=== PATIENT | female | born 1985 | race Caucasian/White ===

== ENCOUNTER → 2019-09-26 13:09 | Outpatient (BNVA) | payer MEDICAID, SELFPAY | PROVIDERS: Family Provider Nurse Practitioner; PCP Nurse Practitioner; Visit Provider Obstetrics & Gynecology | DX: Z01.89 Encounter for other specified special examinations (principal) | CPT/HCPCS: 84315 ==

== ENCOUNTER → 2019-10-10 15:30 | Outpatient (BNVA) | payer SELFPAY | PROVIDERS: Family Provider Nurse Practitioner; PCP Nurse Practitioner; Visit Provider Obstetrics & Gynecology | DX: O09.522 Supervision of elderly multigravida, second trimester (principal); O24.112 Pre-existing type 2 diabetes mellitus, in pregnancy, second trimester; O09.892 Supervision of other high risk pregnancies, second trimester; O99.212 Obesity complicating pregnancy, second trimester; M79.7 Fibromyalgia; J45.909 Unspecified asthma, uncomplicated; G43.909 Migraine, unspecified, not intractable, without status migrainosus; Z3A.15 15 weeks gestation of pregnancy | CPT/HCPCS: 81000; 84315 ==

== ENCOUNTER → 2019-10-24 14:19 | Outpatient (BNVA) | payer MEDICAID, SELFPAY | PROVIDERS: Family Provider Nurse Practitioner; PCP Nurse Practitioner; Visit Provider Obstetrics & Gynecology | DX: O09.522 Supervision of elderly multigravida, second trimester (principal); O99.212 Obesity complicating pregnancy, second trimester; O09.892 Supervision of other high risk pregnancies, second trimester; Z3A.17 17 weeks gestation of pregnancy | CPT/HCPCS: 81000; 84315 ==

== ENCOUNTER → 2019-11-01 08:26 | Outpatient (BNVA) | payer MEDICAID, SELFPAY | PROVIDERS: Family Provider Nurse Practitioner; PCP Nurse Practitioner; Visit Provider Counselor Professional | DX: F33.2 Major depressive disorder, recurrent severe without psychotic features (principal); F41.1 Generalized anxiety disorder; F43.12 Post-traumatic stress disorder, chronic | CPT/HCPCS: 90834 ==

== ENCOUNTER → 2019-11-07 11:40 | Outpatient (BNVA) | payer MEDICAID, SELFPAY | PROVIDERS: Family Provider Nurse Practitioner; PCP Nurse Practitioner; Visit Provider Obstetrics & Gynecology | DX: Z01.89 Encounter for other specified special examinations (principal) | CPT/HCPCS: 84315 ==

== ENCOUNTER → 2019-11-14 08:13 | Outpatient (BNVA) | payer MEDICAID, SELFPAY | PROVIDERS: Family Provider Nurse Practitioner; PCP Nurse Practitioner; Visit Provider Obstetrics & Gynecology | DX: O09.892 Supervision of other high risk pregnancies, second trimester (principal); Z3A.20 20 weeks gestation of pregnancy | CPT/HCPCS: 76805 ==

== ENCOUNTER → 2019-11-15 12:41 | Outpatient (BNVA) | payer MEDICAID, SELFPAY | PROVIDERS: Family Provider Nurse Practitioner; PCP Nurse Practitioner; Visit Provider Counselor Professional | DX: F33.2 Major depressive disorder, recurrent severe without psychotic features (principal); F41.1 Generalized anxiety disorder; F43.12 Post-traumatic stress disorder, chronic | CPT/HCPCS: 90834 ==

== ENCOUNTER → 2019-11-21 10:15 | Outpatient (BNVA) | payer MEDICAID, SELFPAY | PROVIDERS: Family Provider Nurse Practitioner; Visit Provider Nurse Practitioner | DX: F43.12 Post-traumatic stress disorder, chronic (principal); F41.1 Generalized anxiety disorder; F33.2 Major depressive disorder, recurrent severe without psychotic features | CPT/HCPCS: 99214 ==

== ENCOUNTER → 2019-11-21 11:31 | Outpatient (BNVA) | payer MEDICAID, OTHER, SELFPAY | PROVIDERS: Family Provider Nurse Practitioner; PCP Nurse Practitioner; Visit Provider Obstetrics & Gynecology | DX: Z01.89 Encounter for other specified special examinations (principal) | CPT/HCPCS: 84315 ==

== ENCOUNTER → 2019-11-29 10:22 | Outpatient (BNVA) | payer MEDICAID, SELFPAY | PROVIDERS: Family Provider Nurse Practitioner; PCP Nurse Practitioner; Visit Provider Counselor Professional | DX: F33.2 Major depressive disorder, recurrent severe without psychotic features (principal); F41.1 Generalized anxiety disorder; F43.12 Post-traumatic stress disorder, chronic; O99.342 Other mental disorders complicating pregnancy, second trimester | CPT/HCPCS: 90834 ==

== ENCOUNTER → 2019-12-05 11:42 | Outpatient (BNVA) | payer MEDICAID, SELFPAY | PROVIDERS: Family Provider Nurse Practitioner; PCP Nurse Practitioner; Visit Provider Obstetrics & Gynecology | DX: Z01.89 Encounter for other specified special examinations (principal) | CPT/HCPCS: 84315 ==

== ENCOUNTER → 2019-12-19 09:16 | Outpatient (BNVA) | payer MEDICAID, SELFPAY | PROVIDERS: Family Provider Nurse Practitioner; PCP Nurse Practitioner; Visit Provider Obstetrics & Gynecology | DX: Z01.89 Encounter for other specified special examinations (principal) | CPT/HCPCS: 84315 ==

== ENCOUNTER → 2019-12-20 07:26 | Outpatient (BNVA) | payer MEDICAID, SELFPAY | PROVIDERS: Family Provider Nurse Practitioner; PCP Nurse Practitioner; Visit Provider Nurse Practitioner | DX: F33.2 Major depressive disorder, recurrent severe without psychotic features (principal); F43.12 Post-traumatic stress disorder, chronic; F41.1 Generalized anxiety disorder | CPT/HCPCS: 99214 ==

== ENCOUNTER → 2020-01-02 12:01 | Outpatient (BNVA) | payer MEDICAID, SELFPAY | PROVIDERS: Family Provider Nurse Practitioner; PCP Nurse Practitioner; Visit Provider Obstetrics & Gynecology | DX: Z34.90 Encounter for supervision of normal pregnancy, unspecified, unspecified trimester (principal); O09.892 Supervision of other high risk pregnancies, second trimester; O26.899 Other specified pregnancy related conditions, unspecified trimester; O26.892 Other specified pregnancy related conditions, second trimester; Z67.91 Unspecified blood type, Rh negative | CPT/HCPCS: 84315; 85027; 86850 ==

== ENCOUNTER → 2020-01-09 10:07 | Outpatient (BNVA) | payer MEDICAID, SELFPAY | PROVIDERS: Family Provider Nurse Practitioner; PCP Nurse Practitioner; Visit Provider Obstetrics & Gynecology | DX: O24.113 Pre-existing type 2 diabetes mellitus, in pregnancy, third trimester (principal); O09.893 Supervision of other high risk pregnancies, third trimester; O99.343 Other mental disorders complicating pregnancy, third trimester; O26.893 Other specified pregnancy related conditions, third trimester; Z67.91 Unspecified blood type, Rh negative; O99.213 Obesity complicating pregnancy, third trimester; O99.613 Diseases of the digestive system complicating pregnancy, third trimester; K21.9 Gastro-esophageal reflux disease without esophagitis; Z3A.28 28 weeks gestation of pregnancy | CPT/HCPCS: 84315 ==

== ENCOUNTER → 2020-01-16 10:24 | Outpatient (BNVA) | payer MEDICAID, SELFPAY | PROVIDERS: Family Provider Nurse Practitioner; PCP Nurse Practitioner; Visit Provider Obstetrics & Gynecology | DX: O24.113 Pre-existing type 2 diabetes mellitus, in pregnancy, third trimester (principal); O09.893 Supervision of other high risk pregnancies, third trimester | CPT/HCPCS: 76816; 84315 ==

== ENCOUNTER → 2020-01-17 07:42 | Outpatient (BNVA) | payer MEDICAID, SELFPAY | PROVIDERS: Family Provider Nurse Practitioner; PCP Nurse Practitioner; Visit Provider Nurse Practitioner | DX: F43.12 Post-traumatic stress disorder, chronic (principal); F33.2 Major depressive disorder, recurrent severe without psychotic features; F41.1 Generalized anxiety disorder | CPT/HCPCS: 99213 ==

== ENCOUNTER 2020-01-28 14:30 | Outpatient (CLI) | payer MEDICAID, SELFPAY ==
[2020-01-28] VITALS (13 sets, daily range): BP systolic 85–127; BP diastolic 43–77; PULSE 84–112; RESP 18; TEMP 36.8; BMI 45.6
[2020-01-28] MEDS: lactated ringers 1,000 ML 999 ML IV (16:03)
--- NOTE | 2020-01-28 16:39 | PC.NURSE ---
At [id number] Vital Signs, Heart tones and Contraction monitor graphing under another patients account. Strip printed and put in paper chart.
[2020-01-28 16:47] LABS: Glucose Point of Care 91 mg/dL (70-110)
--- NOTE | 2020-01-28 17:10 | PC.NURSE ---
Patient states her pain has been better since she has been laying down and IV fluids have been infusing. Patient states she has only felt about 2 contractions in the last hour.
--- NOTE | 2020-01-28 17:46 | PC.NURSE ---
Patient states contraction pain is better than when she first came in and has only felt about 2 in the last hour. Patient states the continuous groin pain that she feels when she moves and has been feeling for the last 2 weeks is what is really bothering her now.
--- NOTE | 2020-01-28 17:49 | PC.NURSE ---
Patient playing on tablet with no facial grimaces noted. Patient smiling during conversation.
--- NOTE | 2020-01-28 18:39 | PC.NURSE ---
Patient states she is feeling minimal if any contractions, but still having groin pain.
--- NOTE | 2020-01-28 21:58 | P.PCN_ITS ---
Procedure/Consent Procedure Narrative: NONSTRESS TEST: Place of test: [facility] [place]-L&D Indication: 34-year-old 4 para 3-0-0-3, labor/abdominal pain Date and time of test: 01/28/2020, 3 PM Baseline: 135 Variability: Moderate Accelerations: Present Decelerations: None Tocometry: Irregular contractions, mostly irritability INTERPRETATION: NST reactive, continue kick counts
== END 2020-01-28 19:11 | disposition home or self-care (01) ==
LOC: OPOB 14:31 → OBGYN 18:50
PROVIDERS: PCP Nurse Practitioner; Visit Provider Obstetrics & Gynecology
DX: O26.899 Other specified pregnancy related conditions, unspecified trimester (principal); Z3A.00 Weeks of gestation of pregnancy not specified; R10.9 Unspecified abdominal pain
CPT/HCPCS: 36416; 59025; 82962; 99211

== ENCOUNTER → 2020-02-15 13:08 | Outpatient (BNVA) | payer MEDICAID, SELFPAY | PROVIDERS: PCP Nurse Practitioner; Visit Provider Obstetrics & Gynecology | DX: O24.113 Pre-existing type 2 diabetes mellitus, in pregnancy, third trimester (principal); O16.3 Unspecified maternal hypertension, third trimester; Z3A.00 Weeks of gestation of pregnancy not specified | CPT/HCPCS: 84156; 84315 ==

== ENCOUNTER 2020-02-22 12:14 | Outpatient (CLI) | payer MEDICAID, SELFPAY ==
--- NOTE | 2020-02-22 13:05 | US_ITS ---
WS: [id number] OB BPP wo NST 22095 REASON FOR EXAM: GESTIONAL DIABETIC FINDINGS: Anterior placenta is noted. Biparietal diameter the head was 8.93 cm 36 weeks 1 day gestation. Head circumference 32.84 cm 37 weeks 2 days gestation Abdominal circumference 30.47 cm 34 weeks 3 days gestation Femoral length 6.94 cm 35.4 weeks gestation. heart rate 161 beats for minute weight estimated 2624 g 5 lbs. 12 oz. and suggests 35 weeks 1 day gestation. Amniotic fluid indices 24.02 cm elevated suggesting mild pathology granulomas. US/US OB BPP wo NST 58331 IMPRESSION: Interuterine at 35 weeks 6 days gestation due date March 27, 2020. There appears to be increased amniotic fluid present.
[2020-02-22 13:08] VITALS: BMI 46.1
[2020-03-21 08:05] VITALS: BP 0/0; BP 119/76; PULSE 100
[2020-03-21 09:45] VITALS: BP 0/0
[2020-03-21 10:41] VITALS: BP 109/60; PULSE 104
[2020-03-21 17:53] VITALS: BP 124/71; PULSE 88
[2020-03-21 20:52] VITALS: BP 135/74; PULSE 87
== END 2020-02-23 07:57 | disposition home or self-care (01) ==
LOC: OPOB 12:17 → OBGYN 12:22
PROVIDERS: PCP Nurse Practitioner; Visit Provider Obstetrics & Gynecology
DX: O24.919 Unspecified diabetes mellitus in pregnancy, unspecified trimester (principal); Z3A.00 Weeks of gestation of pregnancy not specified
CPT/HCPCS: 59025; 76819; 84315; 99211

== ENCOUNTER → 2020-02-27 09:33 | Outpatient (BNVA) | payer MEDICAID, SELFPAY | PROVIDERS: PCP Nurse Practitioner; Visit Provider Obstetrics & Gynecology | DX: O09.893 Supervision of other high risk pregnancies, third trimester (principal); O24.113 Pre-existing type 2 diabetes mellitus, in pregnancy, third trimester; O99.613 Diseases of the digestive system complicating pregnancy, third trimester; K21.9 Gastro-esophageal reflux disease without esophagitis | CPT/HCPCS: 84315; 87081 ==

== ENCOUNTER 2020-03-13 19:20 | Outpatient (CLI) | payer MEDICAID, SELFPAY ==
[2020-03-13] VITALS (11 sets, daily range): BP systolic 0–142; BP diastolic 0–77; PULSE 86–122; RESP 18; TEMP 37; BMI 46.7
[2020-03-13] MEDS: acetaminophen 325 mg Tablet 650 MG PO (20:46)
== END 2020-03-13 21:40 | disposition home or self-care (01) ==
LOC: OPOB 19:32 → OBGYN 19:33
PROVIDERS: PCP Nurse Practitioner; Visit Provider Obstetrics & Gynecology
DX: O26.899 Other specified pregnancy related conditions, unspecified trimester (principal); Z3A.00 Weeks of gestation of pregnancy not specified; R10.9 Unspecified abdominal pain
CPT/HCPCS: 99211

== ENCOUNTER 2020-03-20 17:36 | Inpatient (IN) | payer MEDICAID, SELFPAY ==
[2020-03-20] VITALS (25 sets, daily range): BP systolic 0–147; BP diastolic 0–79; PULSE 75–116; RESP 17–18; TEMP 36.6–36.7; BMI 46.1
[2020-03-20 18:15] LABS: Glucose Point of Care 75 mg/dL (70-110)
[2020-03-20 19:15] LABS: Basophils % 0.3 %; Eosinophils # 0.1 10^3/uL (0.0-0.8); Eosinophils % 0.6 %; Hematocrit 41.1 % (37.0-47.0); Hemoglobin 12.9 g/dL (11.5-15.3); Lymphocytes % 18.3 %; Mean Corpuscular HGB Conc 31.4 g/dL (30.0-36.0); Mean Platelet Volume 12.2 fL (7.4-10.4); Monocytes # 0.7 10^3/uL (0.2-0.9); Monocytes % 6.2 %; Neutrophils # 8.2 10^3/uL (1.8-7.7); Neutrophils % 74.1 %; Nucleated Red Blood Cells % 0 %; Platelet Count 286 10^3/cmm (130-400); Red Blood Count 4.78 10^6/uL (4.1-5.3); Red Cell Distribution Width 15.3 % (12.1-15.1); White Blood Count 11.1 10^3/uL (4.0-10.0)
[2020-03-20] MEDS: dextrose 5%-sod chloride 0.9% 1,000 ML 999 ML IV (20:08)
[2020-03-20 20:57] LABS: Glucose Point of Care 147 mg/dL (70-110)
[2020-03-20] MEDS: lactated ringers 1,000 ML 125 ML IV (21:15)
[2020-03-20] MEDS: oxytocin 30 UNIT/500 ML BAG IV (21:44)
[2020-03-20 23:07] LABS: Glucose Point of Care 76 mg/dL (70-110)
[2020-03-21] VITALS (58 sets, daily range): BP systolic 0–139; BP diastolic 0–86; PULSE 70–110; RESP 17–18; TEMP 36.4–36.8
[2020-03-21 02:15] LABS: Glucose Point of Care 93 mg/dL (70-110)
[2020-03-21] MEDS: dextrose 5%-sod chloride 0.9% 1,000 ML 125 ML IV ×2 (03:18→15:36)
[2020-03-21 06:24] LABS: Glucose Point of Care 85 mg/dL (70-110)
--- NOTE | 2020-03-21 07:36 | PM.PN ---
Subjective Subjective: Interval history: Subjective- Ms. cool is a 34-year-old 4 para 2-1-0-3 at 39 weeks and 1 day gestation today who presented to labor and delivery on 03/20/2020 at 39 weeks for scheduled induction of labor for type 2 diabetes on insulin. On admission her cervix was 1 cm, 20% and -3 station, cephalic. tracing was category 1 and she was tee every 2 to 5 minutes. Fingerstick was normal upon admission and she was given IV fluid hydration and lab work was done. Contractions continued to remain every 2 to 5 minutes and as a result decision was made to start induction with Pitocin. Pitocin was started at around 9:30 PM on 03/20/2020 and titrated to a maximum of 6 mIU and with that she was tee every 1 to 3 minutes. She was a little uncomfortable but did not want anything for pain at this time. Overnight the only problems were difficulty keeping the baby on the monitor because of activity as well as maternal body habitus. -Overnight she did pretty well and this morning she is okay other than just feeling sleepy and tired. She does report good movement. Objective- Blood pressure-114/78 mmHg Pulse-84 beats per minute Temperature-98.3 Fahrenheit Abdomen-gravid, nontender, obese Sterile vaginal exam-4-5, 30%, soft, mid position, -3 station, cephalic-ballotable EFM-140, moderate variability, accelerations, no decelerations [place]-contractions every 2 to 3 minutes Assessment: 34-year-old 4 para 2-1-0-3 at 39 weeks and 1 day Induction of labor for type 2 diabetes on insulin Polyhydramnios-resolved Expected large for gestational age baby Anxiety and depression prepregnancy Rh- GERD Asthma Morbid obesity with a BMI of 46 Plan: Plan to continue Pitocin for another 1 or 2 hours and if she does not make any further cervical change we will plan on therapeutic break and she can eat shower and ambulate during this time. We will then reassess contraction pattern and cervix and plan on next round of induction-probably Pitocin. Discussed with patient in detail expected large for gestational age baby and risk of shoulder dystocia. Discussed the risks of shoulder dystocia and discussed importance of cooperation during delivery. Discussed possible . We will continue monitoring fingersticks every 4 hours and adjust IV fluids accordingly since she has taken her NPH and Levemir last night Cashier Self Service [employer] notified to be there at time of delivery Nursing notified about high risk of shoulder dystocia for adequate staffing at time of delivery Will restart other medications postdelivery and she is otherwise doing well. Continuous EFM and tocometry at this time. Vitals/I&O/Wt Last Vital Signs Temp 98.0 F 03/21/20 05:30 Pulse 110 H 03/21/20 07:27 Resp 18 03/21/20 05:30 BP 97/40 03/21/20 07:27 03/20/20 03/21/20 03/21/20 22:59 06:59 14:59 Intake Total 1000.717 / 1000.717 274.250 / 1274.967 Balance 1000.717 / 1000.717 274.250 / 1274.967 Weight last 48 hrs Weight 269 lb Data : 03/20/20 19:00 Attestations Medical Necessity Statement*: Patient is being induced and needs to stay till delivery and recovery Coding Level of Care Code Acute Cell Tender for Chg Fwd Results OB Labs Labs G4 09/01/2019 Blood type: O NEGATIVE. Antibody screen: Negative. Intake CBC: WBC 9.9, Hgb 13.5, Hct 42.6, MCV 84.7, Plt 263. Rubella: Immune (41). Hepatitis B surface antigen: Negative. Hepatitis C antibody: Negative. RPR: Nonreactive. HIV: Negative. Cystic fibrosis screen: Declined Urine drug screen: Negative. Urine culture: 10-20,000 CFU, mixed organisms. 09/08/2019 TSH: 0.19. 24-hour urine: Total protein 89 (TV 1050 mL), creatinine clearance 170. 09/19/2019 Gonorrhea: Negative. Chlamydia: Negative. Pap smear: Negative for intraepithelial lesion. 10/10/2019 Quad screen: Declined. 01/02/2020 28 week CBC: WBC 10.4, Hgb 11.4, Hct 36.3, MCV 87.7, Plt 267. Antibody screen: Negative. 02/27/2020 GBS: Negative. PAP 09/19/2019: Negative for intraepithelial lesion or malignancy. OB Ultrasound LMP 06/21/2019 ---> EDC 03/27/2020. 1. 09/01/2019 ---> 10-4/7 WG ---> EDC 03/25/2020. 2. 11/14/2019 ---> 20-6/7 WG ---> EDC 03/27/2020. EFW 14 oz (394 g) 54%. Performed at [facility]. Consistent with dates. Normal anatomic survey, but limited due to maternal body habitus. Female. Breech. FHR 148 bpm. Anterior placenta without previa. Grade 1. Visually normal amniotic fluid volume. STONECUTTER APPRENTICE HAND 7.1 cm. Cervix 4.8 cm. 3. 01/16/2020 ---> 31-0/7 WG ---> EDC 03/19/2020. EFW 3 lbs 12 oz (1716 g) 82%. Performed at [facility]. Consistent with dates. Female. Cephalic. FHR 150 bpm. Anterior placenta without previa. Grade 1. TARYN 23.8 cm. STONECUTTER APPRENTICE HAND 8.1 cm. 4. 02/15/2020 ---> 35-6/7 WG ---> EDC 03/15/2020. EFW 5 lbs 12 oz (2624 g) 75%. Performed at [facility]. Consistent with dates. Female. Complete breech. FHR 161 bpm. Anterior, left lateral placenta without previa. Grade 1. TARYN 24.0 cm. STONECUTTER APPRENTICE HAND 8.3 cm.
[2020-03-21 11:04] LABS: Glucose Point of Care 115 mg/dL (70-110)
[2020-03-21] MEDS: metoclopramide 5 mg/mL SDV 2 mL 10 MG IV (11:58)
[2020-03-21] MEDS: oxytocin 30 UNIT/500 ML BAG IV (13:40)
[2020-03-21 13:48] LABS: Glucose Point of Care 86 mg/dL (70-110)
[2020-03-21 16:00] LABS: Glucose Point of Care 94 mg/dL (70-110)
[2020-03-21] MEDS: fentaNYL 50 mcg/mL INJ 2mL IV (17:48)
[2020-03-21 18:03] LABS: Glucose Point of Care 101 mg/dL (70-110)
[2020-03-21] MEDS: lidocaine 2% INJ 20 mL INJECTION (19:05)
--- NOTE | 2020-03-21 19:20 | P.PCNOB_ITS ---
Delivery Note: Date of delivery: March 21, 2020 Pre-delivery diagnoses: Term . Gestational diabetes Post-delivery diagnoses: Same as above Procedure: Spontaneous vaginal delivery Op report anesthesia: General Delivering Physician: César cheung M.D. Estimated blood loss (mL): 500 Findings: Baby girl, Apgars 8 and 9, weight 3500 g Delivery: The patient was noted to be complete and pushing, so was placed in the dorsal lithotomy position, prepped and draped in the usual sterile fashion for a vaginal delivery. Pt. Noted to have epidural anesthesia. At 1900 the patient delivered a Viable Female infant weighing 3500 g with scores of 8 and 9 at one and five minutes, respectively. The vertex was delivered spontaneously over Intact perineum. The patient was asked to push and the head delivered spontaneously in the AILYN position, over an intact perineum. A nuchal cord was checked and None noted. The anterior shoulder delivered easily and the posterior shoulder followed. The remainder of the infant was easily delivered and the oropharynx and nasopharynx was bulb suctioned. The infant was noted to have spontaneous cry and spontaneous movement of all four extremities. The cord was clamped x 2 and cut and noted to have 2 arteries and one vein. The infant was passed to the Mother's abdomen where Nursing personnel were in attendance. Cord blood sample was then obtained. The placenta delivered intact Spontaneously and the uterus Was explored. 20 units of Pitocin was placed in the IV bag to firm the uterus. Examination of the cervix and vaginal vault did not reveal any lacerations. A vaginal pack was then placed. Examination of the perineum showed First degree laceration bleeding. The Laceration was repaired with 3-0 Vicryl in the normal fashion in a running non locking fashion to reapproximate the laceration in layers. The vaginal pack was then removed. The patient tolerated this procedure well, and recovered in L&D with her to the OB malik. All sponge and needle counts were correct. A&P Assessment and plan (1) Term delivered: Status: Acute (2) Polyhydramnios affecting in third trimester: Status: Acute (3) Obesity affecting : Status: Acute Qualifiers: Trimester: third trimester Qualified Code(s): O99.213 - Obesity complicating , third trimester (4) Rh negative status during : Status: Acute Qualifiers: Trimester: third trimester Qualified Code(s): O26.893 - Other specified related conditions, third trimester; Z67.91 - Unspecified blood type, Rh negative (5) Diabetes in : Status: Acute Qualifiers: Diabetes in type: pre-existing, type 2 Trimester: third trimester Qualified Code(s): O24.113 - Pre-existing type 2 diabetes mellitus, in , third trimester Coding Level of Care Code Acute Squeezer Operator for Chg Fwd Diagnoses Term delivered O80 Polyhydramnios affecting in third trimester O40.3XX0 Obesity affecting O99.213 Trimester: third trimester Rh negative status during O26.893; Z67.91 Trimester: third trimester Diabetes in O24.113 Diabetes in type: pre-existing, type 2 Trimester: third trimester
--- NOTE | 2020-03-21 21:19 | PC.NURSE ---
Patient ambulated to PP room at this time, no c/o dizziness, feelings of lightheadedness
[2020-03-22] VITALS (13 sets, daily range): BP systolic 112–143; BP diastolic 64–79; PULSE 82–101; RESP 14–18; TEMP 36.6–36.8; O2SAT 99
[2020-03-22] MEDS: alum-mag-hydroxide-sime 30 mL UDC PO (01:27)
[2020-03-22] MEDS: acetaminophen 325 mg Tablet 650 MG PO ×3 (02:55→19:31)
[2020-03-22] MEDS: prenatal vitamin Capsule 1 CAP PO (08:08)
[2020-03-22 08:12] LABS: Hemoglobin 10.8 g/dL (11.5-15.3)
--- NOTE | 2020-03-22 08:40 | PC.NURSE ---
Call to Mario in pharmacy to report pt has a home med of omeprazole. Mario stated, Order Pantoprazole in place of omeprazole and order 40 mg instead of 20 mg.
[2020-03-22 09:04] LABS: Hematocrit 34.1 % (37.0-47.0); Mean Corpuscular HGB Conc 31.7 g/dL (30.0-36.0); Mean Corpuscular Hemoglobin 27.2 pg (28.0-34.0); Mean Corpuscular Volume 85.9 fL (81-99); Mean Platelet Volume 12.7 fL (7.4-10.4); Platelet Count 229 10^3/cmm (130-400); Red Blood Count 3.97 10^6/uL (4.1-5.3); Red Cell Distribution Width 15.4 % (12.1-15.1); White Blood Count 12.5 10^3/uL (4.0-10.0)
--- NOTE | 2020-03-22 09:22 | PC.NURSE ---
DFS Moderate Needs Teacher in Pt room at this time. utility worker production notified nurse, infant will not be discharged with mother.
[2020-03-22] MEDS: BuSPIRONE 10 mg Tablet PO ×2 (09:51→17:39)
[2020-03-22] MEDS: buPROPion XL (24 HR) 150 mg Tablet PO (09:51)
[2020-03-22] MEDS: cetirizine 10 mg Tablet PO (09:53)
--- NOTE | 2020-03-22 16:40 | PM.OBGYDC ---
Discharge Providers PINSETTER [employer]CH[employer]IC [employer]AT[employer] Date of Admission: 03/20/20 17:36 Date of Discharge: 03/22/20 Attending Provider at Admission: Earnestine Graves MD Attending Provider at Discharge: Earnestine Graves MD Primary Care Provider: LESLI Miller Diagnoses at Discharge Discharge Diagnosis (1) Term delivered: Status: Acute Problem details: Status post spontaneous vaginal delivery day 1 (2) Polyhydramnios affecting in third trimester: Status: Acute (3) Obesity affecting : Status: Acute Qualifiers: Trimester: third trimester Qualified Code(s): O99.213 - Obesity complicating , third trimester (4) Rh negative status during : Status: Acute Qualifiers: Trimester: third trimester Qualified Code(s): O26.893 - Other specified related conditions, third trimester; Z67.91 - Unspecified blood type, Rh negative (5) Diabetes in : Status: Acute Qualifiers: Diabetes in type: pre-existing, type 2 Trimester: third trimester Qualified Code(s): O24.113 - Pre-existing type 2 diabetes mellitus, in , third trimester Reason for Visit Reason for Visit: Induction of Labor Hospital Course Hospital Course: Patient was admitted to labor and delivery for induction due to High risk with gestational diabetes. She progressed to have a spontaneous vaginal delivery of a baby girl Apgars 8/9 with weight of 3500 g. observation uneventful. She is afebrile and hemodynamically stable. A running diet well. Ambulating without difficulty. Refers she has not menopause and may which type of contraception she will use and will decide at the 6 week visit. Information Peripartum Data: Delivery Method: Vaginal Physical Exam Narrative: EXAM NARRATIVE: GA; alert and oriented x 3 HEENT: normal Breasts: engorged Nipples - skin intact Lungs; clear to auscultation Heart: regular rhythm, no murmurs. Abd: Appropriately tender. BS+. Uterine fundus below umbilicus. No Fundal Tenderness. Perineum: normal lochia. Extremities: no edema, no cyanosis, no tenderness. Discharge Data Data Completed and Pending: Pending at discharge Category Date Time Status Complete Crossmat ch Routine Lab 03/21/20 06:30 Results Rho D Immune Glob ulin Routine Lab 07/01/20 06:30 Results Type and Screen R outine Lab 03/21/20 06:30 Results Labs from last 24 hours 03/22/20 03/22/20 03/21/20 07:36 07:36 17:57 WBC 12.5 H RBC 3.97 L Hgb 10.8 L Hct 34.1 L MCV 85.9 MCH 27.2 L MCHC 31.7 RDW 15.4 H Plt Count 229 MPV 12.7 H POC Glucose 101 Blood Type Rho(D) Type Antibody Screen Screen Negative 03/21/20 06:30 WBC RBC Hgb Hct MCV MCH MCHC RDW Plt Count MPV POC Glucose Blood Type O Negative Rho(D) Type Negative Antibody Screen Negative Screen Vitals: Last Vital Signs Temp 97.8 F 03/22/20 10:13 Pulse 82 03/22/20 10:13 Resp 16 03/22/20 10:13 BP 139/74 03/22/20 10:13 Pulse Ox 99 03/22/20 10:13 Discharge Plan Discharge Patient Disposition: Home, Self-Care Condition: Stable Prescriptions: New acetaminophen 325 mg tablet 650 mg PO Q4H PRN (Reason: fever or pain) Qty: 60 RF: 0 ferrous sulfate 325 mg (65 mg iron) tablet 325 mg PO BID Qty: 60 RF: 0 Continued omeprazole 20 mg capsule,delayed release(DR/EC) 20 mg PO DAILY 30 Days Qty: 30 RF: 10 cetirizine [Zyrtec] 10 mg tablet 10 mg PO DAILY Qty: 30 RF: 2 albuterol sulfate 2.5 mg/0.5 mL solution for nebulization 2.5 mg INHALATION ONCE Qty: 1 RF: 0 hydroxyzine HCl 25 mg tablet 25 mg PO QID PRN (Reason: anxiety) RF: 0 ondansetron HCl [Zofran] 4 mg tablet 4 mg PO Q8H PRN (Reason: nausea and vomiting) RF: 0 albuterol sulfate [ProAir HFA] 90 mcg/actuation HFA aerosol inhaler 2 puff INHALATION Q6H PRN (Reason: Shortness Of Breath Or Wheezing) RF: 0 fluticasone propionate [Allergy Relief (fluticasone)] 50 mcg/actuation spray,suspension 2 spray INTRANASAL BID RF: 0 buspirone 10 mg tablet 10 mg PO BID Qty: 60 RF: 1 bupropion HCl [Wellbutrin XL] 150 mg tablet extended release 24 hr 150 mg PO QAM Qty: 30 RF: 1 Levemir U-100 Insulin 100 unit/mL solution 26 unit SUBCUT DAILY RF: 0 Novolin N NPH U-100 Insulin 100 unit/mL suspension 8 unit SUBCUT .daily with lunch Qty: 10 RF: 2 insulin aspart U-100 [Novolog U-100 Insulin aspart] 100 unit/mL solution See Rx Instructions SUBCUT TID RF: 0 metoclopramide HCl [Reglan] 10 mg tablet 10 mg PO Q6H PRN (Reason: nausea and vomiting) Qty: 120 RF: 1 (DME) Accutrend Glucose test strips Strip See Rx Instructions .ROUTE .MEDSUPPLY Qty: 200 RF: 4 prenat.vits,maya,byi-ylnq-aqhfu Tablet 1 tab PO DAILY Qty: 30 RF: 6 Flovent HFA 220 mcg/actuation HFA aerosol inhaler 2 puff INHALATION BID Qty: 12 RF: 1 montelukast 10 mg tablet 10 mg PO .at bedtime 30 Days Qty: 30 RF: 1 Referrals: César Juarez MD [Physician] - 2 weeks Discharge Diet: As Directed Discharge Activity: Increase activity as tolerated Patient Instructions: Diabetes and Diet, Diabetes Insipidus (DC), Vaginal Delivery (DC) Activity Restrictions/Additional Instructions: Pelvic rest for 6 weeks (no sex, no tampons, no vaginal douches). Return to the emergency room if any fever, increased bleeding or pain. Discharge Attestations [employer] Time Spent in Discharge Care*: greater than 30 min Specific Discharge Activities: Specific discharge activities: educating patient and educating and/or supporting family/caregiver Coding Level of Care Code Acute Sanitation Truck Cleaner for Chg Fwd Diagnoses Term delivered O80 Polyhydramnios affecting in third trimester O40.3XX0 Obesity affecting O99.213 Trimester: third trimester Rh negative status during O26.893; Z67.91 Trimester: third trimester Diabetes in O24.113 Diabetes in type: pre-existing, type 2 Trimester: third trimester
[2020-03-22] MEDS: montelukast sodium 10 mg Tablet PO (17:39)
== END 2020-03-22 20:49 | disposition home or self-care (01) | DRG 805 ==
PROVIDERS: Obstetrics & Gynecology; Admitting Provider Obstetrics & Gynecology; PCP Nurse Practitioner; Visit Provider Obstetrics & Gynecology
DX: O40.3XX0 Polyhydramnios, third trimester, not applicable or unspecified (principal); O24.12 Pre-existing type 2 diabetes mellitus, in childbirth; Z37.0 Single live birth; O99.214 Obesity complicating childbirth; O70.0 First degree perineal laceration during delivery; Z3A.39 39 weeks gestation of pregnancy; E11.9 Type 2 diabetes mellitus without complications
CPT/HCPCS: 12345; 36415; 36416; 59025; 59409; 82962; 83986; 85025; 85027; 85460; 86850; 86900; 90384; 96372; 96375; 98960; 99211; J2001; J2765; J3010; J3535

== ENCOUNTER → 2020-04-06 07:48 | Outpatient (BNVA) | payer MEDICAID, SELFPAY | PROVIDERS: PCP Nurse Practitioner; Visit Provider Nurse Practitioner | DX: F33.2 Major depressive disorder, recurrent severe without psychotic features (principal); F41.1 Generalized anxiety disorder; F43.12 Post-traumatic stress disorder, chronic; F33.1 Major depressive disorder, recurrent, moderate | CPT/HCPCS: 36416; 82962; 99214 ==

== ENCOUNTER 2020-05-08 08:08 | Outpatient (CLI) | payer MEDICAID, SELFPAY ==
--- NOTE | 2020-05-08 11:49 | PFTS_ITS ---
Date of Study:05/08/20 Date of Dictation: MECHANICS: Forced vital capacity (FVC) is normal. Forced expiratory volume in one second (FEV1) is normal. FEV1/FVC is normal. FLOW VOLUME LOOP: Normal. LUNG VOLUMES: Not performed DIFFUSING CAPACITY FOR CARBON MONOXIDE: Not performed. INTERPRETATION: The spirometry is normal. MTDD
== END 2020-05-08 08:09 | disposition home or self-care (01) ==
LOC: RT 08:12
PROVIDERS: PCP Nurse Practitioner; Visit Provider Internal Medicine
DX: J45.909 Unspecified asthma, uncomplicated (principal)
CPT/HCPCS: 94010

== ENCOUNTER → 2020-06-15 12:15 | Outpatient (BNVA) | payer MEDICAID, SELFPAY | PROVIDERS: Family Provider Nurse Practitioner; Visit Provider Internal Medicine | DX: Z20.828 Contact with and (suspected) exposure to other viral communicable diseases (principal) | CPT/HCPCS: 87635 ==

== ENCOUNTER → 2020-06-26 08:04 | Outpatient (BNVA) | payer MEDICAID, SELFPAY | PROVIDERS: Family Provider Nurse Practitioner; Visit Provider Nurse Practitioner | DX: F33.2 Major depressive disorder, recurrent severe without psychotic features (principal); F41.1 Generalized anxiety disorder; F43.12 Post-traumatic stress disorder, chronic | CPT/HCPCS: 99214 ==

== ENCOUNTER → 2020-08-07 07:39 | Outpatient (BNVA) | payer MEDICAID, SELFPAY | PROVIDERS: Family Provider Nurse Practitioner; Visit Provider Nurse Practitioner | DX: F43.12 Post-traumatic stress disorder, chronic (principal); F41.1 Generalized anxiety disorder; F33.2 Major depressive disorder, recurrent severe without psychotic features | CPT/HCPCS: 99214 ==

== ENCOUNTER 2020-09-10 06:00 | Outpatient (RCR) | payer MEDICAID, SELFPAY | END 2020-09-19 23:00 | disposition home or self-care (01) | LOC: SPT 06:00 | PROVIDERS: Family Provider Nurse Practitioner; PCP Internal Medicine; Referring Provider Internal Medicine; Visit Provider Internal Medicine | DX: M99.09 Segmental and somatic dysfunction of abdomen and other regions (principal); M54.9 Dorsalgia, unspecified; G89.29 Other chronic pain | CPT/HCPCS: 97161 ==

== ENCOUNTER 2020-09-18 14:50 | Inpatient (IN) | payer MEDICAID, SELFPAY ==
[2020-09-18] VITALS (8 sets, daily range): BP systolic 104–122; BP diastolic 72–87; PULSE 63–94; RESP 14–18; TEMP 36.6–36.7; O2SAT 96–99; BMI 46.3
[2020-09-18 16:38] LABS: Add Urine Microscopic? NO
--- NOTE | 2020-09-18 16:41 | ED_ITS ---
HPI - Abdominal Pain General: Chief Complaint: Abdominal Pain Stated Complaint: ABD PAIN, NAUSEA/VOMIT Time Seen by Provider: 09/18/20 16:07 History of Present Illness: HPI narrative: 34-year-old female presents emergency room with complaint of abdominal pain. States she said the abdominal pain for the last 3 to 4 days. She has had a little vomiting initially with it since then the vomiting is resolved she just generally feels achy discomfort around the umbilicus. She denies any dysuria urgency or frequency no fevers sweats or chills she has not had hematochezia melena hematemesis or coffee- ground MrsYaneth DYSON elicited complaint: abdominal pain Pertinent past history: other (Previous laparoscopic surgeries with umbilical trocar sites) Onset (ago): day(s) (3-4) Pain Consistency: constant Location: Periumbilical Severity: moderate Quality: cramping and aching Radiation: none Migration to: no migration Exacerbating factors: nothing Relieving factors: rest Associated Symptoms: Reports anorexia, bloating and GI cramping; Denies belching, change in bowel habits, change in stool character, chills, coffee ground emesis, constipation, diarrhea, dyspepsia, dysuria, excessive flatus, fever(s), heartburn, hematochezia, hematuria, hematemesis, fecal incontinence, loose stools, melena, nausea, poor appetite, syncope and vomiting Related Data: Date of Last Menstrual Period: 08/31/20 Review of Systems Const: Denies: fever(s) or chills ENMT: Denies: throat pain, ear or mastoid pain, nasal discharge or nasal congestion Card: Denies: syncope Resp: Denies: dyspnea, productive cough or non-productive cough GI: Reports: bloating and GI cramping; Denies: nausea, vomiting, hematemesis, coffee ground emesis, heartburn, diarrhea, constipation, belching, excessive flatus, fecal incontinence, change in bowel habits, change in stool character, hematochezia or melena : Denies: hematuria Skin/Breast: Denies: rash or pruritus [facility] PFSH: Medical History (Updated 09/19/20 @ 17:24 by Cain Alvarado DO) Asthma Blood type O- Fibromyalgia Generalized anxiety disorder Major depressive disorder, recurrent severe without psychotic features Migraine without aura Obesity Post-traumatic stress disorder, chronic Surgical History History of abdominoplasty (2012) Pannus removal, karen peña @ [facility] History of bilateral breast reduction surgery (2007) History of cholecystectomy Family History Mother Hypertension Diabetes Graves disease Grandmother Stroke Maternal Father Hypercholesterolemia Grandfather Cancer Maternal Grandfather: Mesothelioma Grandfather Colon cancer Paternal Social History Smoking and tobacco status: never smoked Alcohol intake: never Additional social history: Well-balanced diet No substance abuse. Female Reproductive History: Date of last menstrual period: 08/31/20 Para: 3 Spontaneous abortions: No Physical Exam Const: COMMON NORMALS: no acute distress GENERAL APPEARANCE: cooperative and comfortable ORIENTATION/CONSCIOUSNESS: Yes awake, Yes oriented to person, Yes oriented to place and Yes oriented to time HENMT: COMMON NORMALS: normocephalic, atraumatic, hearing grossly normal bilaterally, external ears normal, EAC's normal, TM's normal bilaterally, Normal nasal mucous membranes and turbinates present, moist oral mucous membranes and oropharynx normal HEAD & SCALP: normocephalic and atraumatic NOSE: Normal nasal mucous membranes and turbinates present EXTERNAL EAR: Yes external ears normal EXTERNAL AUDITORY CANAL: EAC's normal TYMPANIC MEMBRANE: TM's normal bilaterally Eye: COMMON NORMALS: Equal, round and reactive pupils present, EOMs intact bilaterally, conjunctivae normal and no scleral icterus CONJUNCTIVA: Yes conjunctivae normal PUPIL: Yes Equal, round and reactive pupils present Neck/C-Spine: COMMON NORMALS: full ROM, no lymphadenopathy, supple and no JVD Lymph: LYMPHATIC: no lymphadenopathy noted and no lymphedema noted Resp: COMMON NORMALS: normal respiratory effort, No retractions, No use of accessory muscles and clear to auscultation bilaterally AUSCULTATION: clear to auscultation bilaterally Cardio: COMMON NORMALS: no JVD, regular rate, regular rhythm and No murmurs present (Cardio) RATE: regular rate RHYTHM: regular rhythm GI: COMMON NORMALS: Soft to palpation and No hepatosplenomegaly present AUSCULTATION: Yes normoactive bowel sounds PALPATION: Yes Soft to palpation, No Tenderness to palpation present (GI), No Guarding due to palpation present (GI) and Yes No hepatosplenomegaly present Extremity: COMMON NORMALS: normal to inspection, capillary refill normal, no clubbing, cyanosis or edema, no calf tenderness and no pedal edema Neuro: SENSORIUM/ORIENTATION: Yes oriented to person, Yes oriented to place and Yes oriented to time Skin: COMMON NORMALS: no rashes or lesions noted GENERAL SKIN EXAM: no rashes or lesions noted Course Vital Signs: Vital signs: Vital Signs Temperature 97.6 F 09/19/20 07:51 Pulse Rate 70 09/19/20 17:10 Respiratory Rate 16 09/19/20 17:06 Blood Pressure 102/43 09/19/20 11:02 Pulse Oximetry 95 09/19/20 17:06 MDM - Abdominal Pain MDM Narrative: Medical decision making narrative: Patient has incarcerated umbilical hernia with evidence of increasing inflammation. Discussed Dr. Griffith will admit started on Zosyn anticipating surgery patient surgery in the morning. Lab Data: Labs: Lab Results 09/18/20 09/18/20 09/18/20 Range/Units 16:11 16:11 16:19 WBC 6.4 (4.0-10.0) 10^3/ uL RBC 5.36 H (4.1-5.3) 10^6/u L Hgb 14.1 (11.5-15.3) g/dL Hct 44.6 (37.0-47.0) % MCV 83.2 (81-99) fL MCH 26.3 L (28.0-34.0) pg MCHC 31.6 (30.0-36.0) g/dL RDW 14.4 (12.1-15.1) % Plt Count 269 (130-400) 10^3/c mm MPV 11.4 H (7.4-10.4) fL Neut % (Auto) 72.4 % Lymph % (Auto) 21.0 % [place] % (Auto) 5.7 % Eos % (Auto) 0.5 % Baso % (Auto) 0.2 % Neut # (Auto) 4.62 (1.8-7.7) 10^3/u L Lymph # (Auto) 1.3 (0.8-4.8) 10^3/u L [place] # (Auto) 0.4 (0.2-0.9) 10^3/u L Eos # (Auto) 0.0 (0.0-0.8) 10^3/u L Baso # (Auto) 0.0 (0.0-0.1) 10^3/u L Nucleated RBC % (a uto) 0 % Nucleated RBCs # 0.0 /100WBC Sodium (136-145) mmol/L Potassium (3.5-5.1) mmol/L Chloride (98-107) mmol/L Carbon Dioxide (22-29) mmol/L Anion Gap (5-19) BUN (6-20) mg/dL Creatinine (0.5-0.9) mg/dL GFR Calculation (90-130) mL/min Glucose (65-115) mg/dL Calculated Osmolal ity (285-295) mOsm/k g Calcium (8.5-10.5) mg/dL Total Bilirubin (0.15-1.2) mg/dL AST (0-32) U/L ALT (0-33) U/L Alkaline Phosphata se (35-105) IU/L Total Protein (6.6-8.7) g/dL Albumin (3.5-5.2) g/dL Globulin (1.3-4.6) g/dL Lipase (13-60) U/L HCG, Qual Negative (Negative) Urine Color Yellow (Yellow) Urine Appearance Clear (CLEAR) Urine pH 5 (5-7) Ur Specific Gravit y 1.020 (1.005-1.030) Urine Protein Neg (Negative) Urine Glucose (UA) Norm (Normal) Urine Ketones Negative (Negative) Urine Blood Neg (Negative) Urine Nitrate Negative (Negative) Urine Bilirubin 1+ H (Negative) Urine Urobilinogen 4 H (Negative) mg/dL Ur Leukocyte Margaret ase Negative (Negative) 09/18/20 Range/Units 16:19 WBC (4.0-10.0) 10^3/ uL RBC (4.1-5.3) 10^6/u L Hgb (11.5-15.3) g/dL Hct (37.0-47.0) % MCV (81-99) fL MCH (28.0-34.0) pg MCHC (30.0-36.0) g/dL RDW (12.1-15.1) % Plt Count (130-400) 10^3/c mm MPV (7.4-10.4) fL Neut % (Auto) % Lymph % (Auto) % [place] % (Auto) % Eos % (Auto) % Baso % (Auto) % Neut # (Auto) (1.8-7.7) 10^3/u L Lymph # (Auto) (0.8-4.8) 10^3/u L [place] # (Auto) (0.2-0.9) 10^3/u L Eos # (Auto) (0.0-0.8) 10^3/u L Baso # (Auto) (0.0-0.1) 10^3/u L Nucleated RBC % (a uto) % Nucleated RBCs # /100WBC Sodium 141 (136-145) mmol/L Potassium 3.6 (3.5-5.1) mmol/L Chloride 104 (98-107) mmol/L Carbon Dioxide 28 (22-29) mmol/L Anion Gap 12.6 (5-19) BUN 9 (6-20) mg/dL Creatinine 0.8 (0.5-0.9) mg/dL GFR Calculation 81.2 L (90-130) mL/min Glucose 104 (65-115) mg/dL Calculated Osmolal ity 291 (285-295) mOsm/k g Calcium 8.7 (8.5-10.5) mg/dL Total Bilirubin 0.7 (0.15-1.2) mg/dL AST 36 H (0-32) U/L ALT 70 H (0-33) U/L Alkaline Phosphata se 130 H (35-105) IU/L Total Protein 7.1 (6.6-8.7) g/dL Albumin 3.9 (3.5-5.2) g/dL Globulin 3.2 (1.3-4.6) g/dL Lipase 13 (13-60) U/L HCG, Qual (Negative) Urine Color (Yellow) Urine Appearance (CLEAR) Urine pH (5-7) Ur Specific Gravit y (1.005-1.030) Urine Protein (Negative) Urine Glucose (UA) (Normal) Urine Ketones (Negative) Urine Blood (Negative) Urine Nitrate (Negative) Urine Bilirubin (Negative) Urine Urobilinogen (Negative) mg/dL Ur Leukocyte Margaret ase (Negative) Discharge Plan Discharge Patient Disposition: Admitted As Inpatient Admit Provider: Amandeep Griffith Clinical Impression: Incarcerated ventral hernia Condition: Stable Coding Level of Care Code ED Transfer 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
[2020-09-18 16:44] LABS: Basophils % 0.2 %; Eosinophils % 0.5 %; Hematocrit 44.6 % (37.0-47.0); Hemoglobin 14.1 g/dL (11.5-15.3); Lymphocytes # 1.3 10^3/uL (0.8-4.8); Mean Corpuscular HGB Conc 31.6 g/dL (30.0-36.0); Mean Corpuscular Hemoglobin 26.3 pg (28.0-34.0); Mean Corpuscular Volume 83.2 fL (81-99); Mean Platelet Volume 11.4 fL (7.4-10.4); Monocytes # 0.4 10^3/uL (0.2-0.9); Monocytes % 5.7 %; Neutrophils # 4.62 10^3/uL (1.8-7.7); Neutrophils % 72.4 %; Nucleated Red Blood Cells % 0 %; Platelet Count 269 10^3/cmm (130-400); Red Blood Count 5.36 10^6/uL (4.1-5.3); Red Cell Distribution Width 14.4 % (12.1-15.1); White Blood Count 6.4 10^3/uL (4.0-10.0)
[2020-09-18 16:46] LABS: Bilirubin Urine 1+ (Negative); Blood Urine Neg (Negative); Glucose Urine UA Norm (Normal); Ketones Urine Negative (Negative); Leukocyte Esterase Urine Negative (Negative); Nitrate Urine Negative (Negative); Protein Urine Neg (Negative); Urine Appearance Clear (CLEAR); Urine Color Yellow (Yellow); Urobilinogen Urine 4 mg/dL (Negative); pH Urine 5 (5-7)
[2020-09-18] MEDS: sodium chloride 0.9% 1,000 ML 999 ML IV (16:49)
[2020-09-18] MEDS: ondansetron 2 mg/ML SDV 2 mL 4 MG IVP (16:49)
[2020-09-18] MEDS: morphine 4 mg/mL SDV 1 mL IVP (16:50)
--- NOTE | 2020-09-18 16:56 | CTR_ITS ---
PROCEDURE INFORMATION: Exam: CT Abdomen And Pelvis With Contrast Exam date and time: 09/18/2020 5:17 PM Age: 34 years old Clinical indication: Nausea and vomiting and other: Diarrhea; Abdominal pain; Localized; Right lower quadrant (rlq); Prior surgery; Surgery type: Abdominoplasty, gb; Additional info: Abd pain TECHNIQUE: Imaging protocol: Computed tomography of the abdomen and pelvis with intravenous contrast. Radiation optimization: All CT scans at this facility use at least one of these dose optimization techniques: automated exposure control; mA and/or kV adjustment per patient size (includes targeted exams where dose is matched to clinical indication); or iterative reconstruction. Contrast material: OMNI 300; Contrast volume: 95 ml; Contrast route: INTRAVENOUS (IV); COMPARISON: CT abdomen pelvis w con* [id number] 10/11/2018 8:50 PM RADIATION DOSE METRICS: Total DLP (mGy-cm): 1680.55 FINDINGS: Mediastinal space: A small hiatal hernia is present. Liver: Unremarkable.No mass. Gallbladder and bile ducts: There has been a cholecystectomy. There is no common bile duct dilation. Pancreas: Normal. No ductal dilation. Spleen: There is an irregular splenic hypodensity, consistent in appearance with a benign hemangioma. The spleen is otherwise normal. Adrenal glands: Normal. No mass. Kidneys and ureters: Normal. No hydronephrosis. Stomach and bowel: There is no evidence of intestinal perforation or obstruction. The wall of the distal colon is thickened but collapsed. This appearance may reflect lack of distention however mild colitis cannot be excluded. Appendix: No evidence of appendicitis. Intraperitoneal space: Unremarkable. No free air. No significant fluid collection. Vasculature: Unremarkable.No abdominal aortic aneurysm. Lymph nodes: Unremarkable.No enlarged lymph nodes. Urinary bladder: There is nonspecific bladder wall thickening. This may be related to incomplete distention. Reproductive: Unremarkable as visualized. Bones/joints: Unremarkable. No acute fracture. Soft tissues: There is a slightly larger moderate sized umbillical hernia with new induration of the fat in the hernia and ajacent mesentery concerning for early incarceration of the fat in the hernia. CT/CT abdomen pelvis w con* [id number] IMPRESSION: 1. The wall of the distal colon is thickened but collapsed. This appearance may reflect lack of distention however mild colitis cannot be excluded. 2. There is a slightly larger moderate sized umbillical hernia with new induration of the fat in the hernia and ajacent mesentery concerning for early incarceration of the fat in the hernia. Radiation Dose CTDIVOL = (mGy): DLP = 1680.55 (mGy-cm)
[2020-09-18 17:02] LABS: Alanine Aminotransferase 70 U/L (0-33); Albumin Level 3.9 g/dL (3.5-5.2); Alkaline Phosphatase 130 IU/L (35-105); Anion Gap 12.6 (5-19); Aspartate Amino Transferase 36 U/L (0-32); Blood Urea Nitrogen 9 mg/dL (6-20); Calcium 8.7 mg/dL (8.5-10.5); Carbon Dioxide 28 mmol/L (22-29); Chloride 104 mmol/L (98-107); Globulin 3.2 g/dL (1.3-4.6); Glomerular Filtration Rate 81.2 mL/min (90-130); Glucose 104 mg/dL (65-115); Lipase 13 U/L (13-60); Osmolality Calculated 291 mOsm/kg (285-295); Potassium 3.6 mmol/L (3.5-5.1); Sodium 141 mmol/L (136-145); Total Bilirubin 0.7 mg/dL (0.15-1.2); Total Protein 7.1 g/dL (6.6-8.7)
[2020-09-18] MEDS: iohexol 300 mg/mL 100 mL Btl IV (17:27)
[2020-09-18] MEDS: piperacillin-tazobactam 3.375 GM in sodium chloride 0.9% (plus) 50 ML IV (18:49)
--- NOTE | 2020-09-18 19:05 | P.CONIM_ITS ---
Providers/Reason For Consult Consulting Physican/Specialty*: Surendra Rey MD /Internal Medicine. Reason for Consult*: Medical management of comorbid conditions. Primary Care Provider: Xena Horton DO History of Present Illness History of Present Illness Sandra Florez is a 34 year old female with PMH Asthma, fibromyalgia, generali zed anxiety disorder, came in with chief complaint of having persistent nausea and one episode of vomiting started on last Thursday.Currently admitted under general surgery service for the evaluation and management of early incarceration of the fat in the hernia. When I talked to the, patient she is currently denying, any shortness of breath, fever cough, chills, runny nose, headache, constipation, diarrhea.Her predominant complaint is nausea. Her her asthma is currently well controlled, according to the patient asthma attacks precipitated by exertion, and she uses albuterol inhaler once or twice a month. She had a recent PFT as an outpatient: Which is normal: Vitals and labs have been reviewed. Review of Systems Const: Denies: fever(s), chills, body aches, change in appetite or diaphoresis Card: Denies: palpitations, edema, swelling of feet/ankles, dyspnea on exertion, orthopnea or leg pain with exertion Resp: Denies: dyspnea, productive cough, wheezing or pain on inspiration GI: Denies: diarrhea or constipation : Denies: flank pain Musc: Denies: back pain, extremity pain or extremity swelling Neuro: Denies: headache(s), difficulty walking or confusion Meds/Allergies Home Medications and Allergies Home Medications Medication Instructions Recorded Confirmed Last Taken Type albuterol sulfate 90 mcg/actuation 2 puff INHALATION Q6H PRN 09/20/19 06/11/20 Unknown History aerosol inhaler fluticasone propionate 50 2 spray INTRANASAL BID ml 09/20/19 06/11/20 03/20/20 10:00 History mcg/actuation nasal spray,suspension ondansetron HCl 4 mg tablet 4 mg PO Q8H PRN 09/20/19 06/11/20 Unknown History omeprazole 20 mg capsule,delayed 20 mg PO DAILY 30 Days #30 cap 09/26/19 06/11/20 03/19/20 Rx release cetirizine 10 mg tablet 10 mg PO DAILY #30 tab 11/30/19 06/11/20 03/20/20 10:00 Rx fluticasone propionate 220 2 puff INHALATION BID #12 gm 12/26/19 06/11/20 03/20/20 10:00 Rx mcg/actuation HFA aerosol inhaler montelukast 10 mg tablet 10 mg PO .at bedtime 30 Days #30 02/29/20 06/11/20 03/19/20 Rx tab acetaminophen 650 mg PO Q4H PRN #60 tab 03/22/20 06/11/20 Unknown Rx bupropion HCl 150 mg 24 hr tablet, 150 mg PO QAM #30 tab 08/07/20 08/07/20 Unknown Rx extended release buspirone 10 mg tablet 10 mg PO TID #90 tab 08/07/20 08/07/20 Unknown Rx hydroxyzine HCl 25 mg tablet 25 mg PO QID PRN #120 tab 08/07/20 08/07/20 Unknown Rx prazosin 2 mg capsule 2 mg PO .HS #30 cap 08/07/20 08/07/20 Unknown Rx prenat.vits,maya,qyk-mnql-[id number] 1 tab PO DAILY #30 tab 08/07/20 Unknown Rx trazodone 50 mg tablet 50 mg PO .HS #30 tab 08/07/20 08/07/20 Unknown Rx Allergies Allergy/AdvReac Type Severity Reaction Status Date / Time aspartame Allergy Severe Headache Verified 06/11/20 09:51 cedarwood Allergy runny nose Verified 06/11/20 09:51 imipramine Allergy Rash Verified 06/11/20 09:51 Sunblock Allergy Unknown Uncoded 06/11/20 09:51 PFSH Acute PFSH: Medical History (Updated 09/18/20 @ 19:15 by Surendra Rey MD) Asthma Blood type O- Fibromyalgia Generalized anxiety disorder Major depressive disorder, recurrent severe without psychotic features Migraine without aura Obesity Post-traumatic stress disorder, chronic Surgical History History of abdominoplasty (2012) Pannus removalkaren @ [facility] History of bilateral breast reduction surgery (2007) History of cholecystectomy Family History Mother Hypertension Diabetes Graves disease Grandmother Stroke Maternal Father Hypercholesterolemia Grandfather Cancer Maternal Grandfather: Mesothelioma Grandfather Colon cancer Paternal Social History Smoking and tobacco status: never smoked Alcohol intake: never Additional social history: Well-balanced diet No substance abuse. Female Reproductive History: Date of last menstrual period: 08/31/20 Para: 3 Spontaneous abortions: No Vitals/I&O/Wt Last Vital Signs Temp 98.0 F 09/18/20 14:56 Pulse 75 09/18/20 18:43 Resp 16 09/18/20 18:43 BP 113/72 09/18/20 18:43 Pulse Ox 96 09/18/20 18:43 Weight last 48 hrs Weight 122.47 kg Physical Exam Const: COMMON NORMALS: patient oriented x3 HENMT: COMMON NORMALS: normocephalic and atraumatic HEAD & SCALP: normocephalic and atraumatic Chest: CHEST: Yes Symmetrical chest wall rise Resp: COMMON NORMALS: normal respiratory effort, No retractions, No use of accessory muscles and clear to auscultation bilaterally EFFORT & INSPECTION: Yes symmetric chest movement AUSCULTATION: clear to auscultation bilaterally Cardio: COMMON NORMALS: regular rate, regular rhythm, S1 normal heart sound present, S2 normal heart sound present, No gallops present (Cardio), No murmurs present (Cardio), No rub (Cardio) and Peripheral pulses 2+ throughout RATE: regular rate RHYTHM: regular rhythm HEART SOUNDS: S1 normal heart sound present and S2 normal heart sound present PERIPHERAL PULSES: Peripheral pulses 2+ throughout GI: COMMON NORMALS: Soft to palpation and non-tender AUSCULTATION: Yes normoactive bowel sounds PALPATION: Yes Soft to palpation RECTAL EXAM: deferred OTHER: Obese Abdomen. Extremity: COMMON NORMALS: no clubbing, cyanosis or edema and no pedal edema Neuro: COMMON NORMALS: patient oriented x3 A&P Assessment and plan (1) Asthma: Asthma currently well controlled, no wheezing, no SOB, saturating well on R.A. Continue Ventolin inhaler 2 puffs inhalation every 6 hours as needed Continue Flovent 2 puff inhalation twice daily scheduled. Status: Acute (2) Fibromyalgia: Status: Acute (3) Generalized anxiety disorder: Status: Chronic (4) Environmental and seasonal allergies: Status: Acute (5) Post-traumatic stress disorder, chronic: Status: Chronic Additional A&P Information Thanks for the consult Medicine will continue to follow. 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
--- NOTE | 2020-09-18 22:33 | PC.NURSE ---
ADMIT NOTE Pt received to floor from ER at 2200. Alert and oriented. c/o pain/tenderness in umbilcal samreen area. Abd soft with bowel sounds present. Says small normal BM today. Has been nauseated with anything po since Thursday. Only vomited once on Thursday. Has not eaten or drank much. Answered questions she had about her diagnosis. Instructed on I&O, NPO after midnight. Received first dose of Zosyn in the ER. Starting IV fluids at 150ml/hr. VS done and call light to bedside
[2020-09-18] MEDS: montelukast sodium 10 mg Tablet PO (23:02)
[2020-09-18] MEDS: trazodone 50 mg Tablet PO (23:03)
[2020-09-18] MEDS: BuSPIRONE 10 mg Tablet PO (23:03)
[2020-09-18] MEDS: heparin 5,000 unit/mL INJ 1 mL 5000 UNIT SUBCUT (23:04)
[2020-09-18] MEDS: hyDROXYzine 25 mg Capsule PO (23:13)
[2020-09-18] MEDS: sodium chloride 0.9% 1,000 ML 150 ML IV (23:14)
[2020-09-18] MEDS: HYDROmorphone 1 mg/mL INJ 1 mL 2 MG IVP (23:59)
[2020-09-19] VITALS (26 sets, daily range): BP systolic 89–131; BP diastolic 43–85; PULSE 50–88; RESP 14–21; TEMP 36.4–37; O2SAT 91–100
[2020-09-19] MEDS: lanolin oint 7 gm 1 APPLIC TOPICAL (01:07)
[2020-09-19] MEDS: piperacillin-tazobactam 3.375 GM in sodium chloride 0.9% (plus) 50 ML IV ×3 (03:50→18:02)
[2020-09-19] MEDS: sodium chloride 0.9% 1,000 ML 150 ML IV ×2 (05:01→17:57)
[2020-09-19 05:48] LABS: Basophils % 0.2 %; Hematocrit 39.1 % (37.0-47.0); Hemoglobin 12.1 g/dL (11.5-15.3); Lymphocytes # 1.5 10^3/uL (0.8-4.8); Lymphocytes % 35.2 %; Mean Corpuscular HGB Conc 30.9 g/dL (30.0-36.0); Mean Corpuscular Hemoglobin 26.5 pg (28.0-34.0); Mean Corpuscular Volume 85.6 fL (81-99); Mean Platelet Volume 11.5 fL (7.4-10.4); Monocytes # 0.3 10^3/uL (0.2-0.9); Monocytes % 8.2 %; Neutrophils # 2.29 10^3/uL (1.8-7.7); Neutrophils % 55.2 %; Nucleated Red Blood Cells % 0 %; Platelet Count 220 10^3/cmm (130-400); Red Blood Count 4.57 10^6/uL (4.1-5.3); Red Cell Distribution Width 14.4 % (12.1-15.1); White Blood Count 4.2 10^3/uL (4.0-10.0)
[2020-09-19] MEDS: buPROPion XL (24 HR) 150 mg Tablet PO (05:51)
[2020-09-19] MEDS: heparin 5,000 unit/mL INJ 1 mL 5000 UNIT SUBCUT (05:52)
--- NOTE | 2020-09-19 05:52 | P.HP_ITS ---
Providers/Chief Complaint Admitting Physician: Amandeep Griffith MD Primary Care Provider: Xena Horton DO Chief Complaint: ABD PAIN, NAUSEA/VOMIT History of Present Illness Ms Sandra Florez is a 34 year old female morbidly obese with a BMI of 46.3. Patient presents to the emergency department with worsening abdominal pain particularly in the periumbilical region and was found to have an incarcerated umbilical hernia, patient has been noticed over the past few days having nausea and vomiting associated with worsening abdominal pain. Denies any fevers or chills or change in bowel habits. She reports to me that she had a previous tummy tuck surgery and likely the patient had hernia abdominoplasty as well. There is no mention of mesh placement history. Patient also reports similar episode about a year ago and likely the patient has a chronic incarcerated ventral hernia and it got worse. Upon further work-up in the emergency department patient was found to have on the CT scan of the abdomen and pelvis: Liver: Unremarkable.No mass. Gallbladder and bile ducts: There has been a cholecystectomy. There is no common bile duct dilation. Pancreas: Normal. No ductal dilation. Spleen: There is an irregular splenic hypodensity, consistent in appearance with a benign hemangioma. The spleen is otherwise normal. Adrenal glands: Normal. No mass. Kidneys and ureters: Normal. No hydronephrosis. Stomach and bowel: There is no evidence of intestinal perforation or obstruction. The wall of the distal colon is thickened but collapsed. This appearance may reflect lack of distention however mild colitis cannot be excluded. Appendix: No evidence of appendicitis. Intraperitoneal space: Unremarkable. No free air. No significant fluid collection. Vasculature: Unremarkable.No abdominal aortic aneurysm. Lymph nodes: Unremarkable.No enlarged lymph nodes. Urinary bladder: There is nonspecific bladder wall thickening. This may be related to incomplete distention. Reproductive: Unremarkable as visualized. Bones/joints: Unremarkable. No acute fracture. Soft tissues: There is a slightly larger moderate sized umbillical hernia with new induration of the fat in the hernia and ajacent mesentery concerning for early incarceration of the fat in the hernia. CT/CT abdomen pelvis w con* [id number] IMPRESSION: 1. The wall of the distal colon is thickened but collapsed. This appearance may reflect lack of distention however mild colitis cannot be excluded. 2. There is a slightly larger moderate sized umbillical hernia with new induration of the fat in the hernia and ajacent mesentery concerning for early incarceration of the fat in the hernia. Attempts were made by Dr. Alvarado in the ER to try to reduce the hernia but he met resistance and he consulted general surgery for further evaluation potential intervention. Review of Systems General: Reports: 10 or more systems reviewed and unremarkable except in HPI and below Medications/Allergies Home Medications Medication Instructions Recorded Confirmed Last Taken Type albuterol sulfate 90 mcg/actuation 2 puff INHALATION Q6H PRN 09/20/19 09/19/20 Unknown History aerosol inhaler fluticasone propionate 50 2 spray INTRANASAL BID ml 09/20/19 09/19/20 03/20/20 10:00 History mcg/actuation nasal spray,suspension omeprazole 20 mg capsule,delayed 20 mg PO DAILY 30 Days #30 cap 09/26/19 09/19/20 03/19/20 Rx release cetirizine 10 mg tablet 10 mg PO DAILY #30 tab 11/30/19 09/19/20 03/20/20 10:00 Rx fluticasone propionate 220 2 puff INHALATION BID #12 gm 12/26/19 09/19/20 03/20/20 10:00 Rx mcg/actuation HFA aerosol inhaler montelukast 10 mg tablet 10 mg PO .at bedtime 30 Days #30 02/29/20 09/19/20 03/19/20 Rx tab acetaminophen 650 mg PO Q4H PRN #60 tab 03/22/20 09/19/20 Unknown Rx bupropion HCl 150 mg 24 hr tablet, 150 mg PO QAM #30 tab 08/07/20 09/19/20 Unknown Rx extended release buspirone 10 mg tablet 10 mg PO TID #90 tab 08/07/20 09/19/20 Unknown Rx hydroxyzine HCl 25 mg tablet 25 mg PO QID PRN #120 tab 08/07/20 09/19/20 Unknown Rx prazosin 2 mg capsule 2 mg PO .HS #30 cap 08/07/20 09/19/20 Unknown Rx prenat.vits,maya,koa-jbxh-rzutd 1 tab PO DAILY #30 tab 08/07/20 09/19/20 Unknown Rx trazodone 50 mg tablet 50 mg PO .HS #30 tab 08/07/20 09/19/20 Unknown Rx cyclobenzaprine 10 mg PO BID PRN 09/19/20 09/19/20 Unknown History diclofenac sodium 50 mg PO DAILY PRN 09/19/20 09/19/20 Unknown History Allergies Allergy/AdvReac Type Severity Reaction Status Date / Time aspartame Allergy Severe Headache Verified 06/11/20 09:51 cedarwood Allergy runny nose Verified 06/11/20 09:51 imipramine Allergy Rash Verified 06/11/20 09:51 Sunblock Allergy Unknown Uncoded 06/11/20 09:51 PFSH Acute PFSH: Medical History Asthma Blood type O- Fibromyalgia Generalized anxiety disorder Major depressive disorder, recurrent severe without psychotic features Migraine without aura Obesity Post-traumatic stress disorder, chronic Surgical History History of abdominoplasty (2012) Pannus removal, tummy ozzyck @ [facility] History of bilateral breast reduction surgery (2007) History of cholecystectomy Family History Mother Hypertension Diabetes Graves disease Grandmother Stroke Maternal Father Hypercholesterolemia Grandfather Cancer Maternal Grandfather: Mesothelioma Grandfather Colon cancer Paternal Social History Smoking and tobacco status: never smoked Alcohol intake: never Additional social history: Well-balanced diet No substance abuse. Female Reproductive History: Date of last menstrual period: 08/31/20 Para: 3 Spontaneous abortions: No Vitals/I&O/Wt Last Vital Signs Temp 97.8 F 09/19/20 03:34 Pulse 76 09/19/20 03:34 Resp 18 09/19/20 03:34 BP 103/65 09/19/20 03:34 Pulse Ox 96 09/19/20 03:34 09/18/20 09/18/20 09/19/20 14:59 22:59 06:59 Intake Total 1050 / 1050 987.5 / 2037.5 Balance 1050 / 1050 987.5 / 7.5 Weight last 48 hrs Weight 270 lb Physical Exam Narrative: EXAM NARRATIVE: Patient is conscious alert oriented X3 BMI 46.3 Head and neck examination PERRLA no masses no cervical lymphadenopathy no jaundice Cardiac examination audible S1-S2 no murmurs no gallops no arrhythmias Chest is clear bilateral,abscence of Rhonchi or wheezes,no surgical emphysema Abdomen nontender nondistended soft no organomegaly guarding or rigidity/no signs of peritonitis Present of incarcerated ventral hernia located at the periumbilical region Extremities no cyanosis no clubbing no edema Skin examination was done in the presence of nursing staff Kallie Data : 09/19/20 04:57 09/19/20 04:57 A&P Assessment and plan (1) Incarcerated ventral hernia: After thorough history physical examination and reviewing the chart and images with my personal interpretation of the CT scan. We will plan to perform an open ventral hernia repair with possible mesh placement. Indications, risks, benefits and alternatives all discussed with the patient and she agreed to proceed accordingly. Patient also understands that she is a high risk of hernia recurrence due to her morbid obesity status IV antibiotics Heparin subcu N.p.o. IV fluid resuscitation Informed consent per chart Status: Acute Attestations Medical Necessity Statement*: Observation for medical and surgical care Time Spent in Patient Care: (>than 50% of time spent in counselling and/or direct pt care on unit) . Coding Level of Care Code Acute Clinical Documentation Clerk for Jess Gamboa Diagnoses Incarcerated ventral hernia K43.6
--- NOTE | 2020-09-19 06:03 | PC.NURSE ---
SHIFT SUMMARY Has rested after receiving IV pain med earlier. IV fluids infusing at 150ml/hr rate. Receiving IV antibiotics. NPO after midnight. Dr Telles in this morning and discussed surgery with pt. Surgery will be sometime this afternoon and pt says understands procedure being done.
[2020-09-19] MEDS: HYDROmorphone 1 mg/mL INJ 1 mL IVP (06:25)
[2020-09-19 06:28] LABS: Alanine Aminotransferase 153 U/L (0-33); Albumin Level 3.3 g/dL (3.5-5.2); Alkaline Phosphatase 121 IU/L (35-105); Anion Gap 10.7 (5-19); Aspartate Amino Transferase 164 U/L (0-32); Blood Urea Nitrogen 8 mg/dL (6-20); Calcium 7.8 mg/dL (8.5-10.5); Carbon Dioxide 27 mmol/L (22-29); Chloride 109 mmol/L (98-107); Globulin 2.6 g/dL (1.3-4.6); Glomerular Filtration Rate 70.8 mL/min (90-130); Glucose 88 mg/dL (65-115); Osmolality Calculated 294 mOsm/kg (285-295); Potassium 3.7 mmol/L (3.5-5.1); Sodium 143 mmol/L (136-145); Total Bilirubin 0.9 mg/dL (0.15-1.2); Total Protein 5.9 g/dL (6.6-8.7)
--- NOTE | 2020-09-19 07:52 | PC.NURSE ---
I reported the low bp to the nurse
[2020-09-19] MEDS: BuSPIRONE 10 mg Tablet PO ×2 (08:33→20:21)
[2020-09-19] MEDS: pantoprazole DR 40 mg Tablet PO (08:33)
[2020-09-19] MEDS: hyDROXYzine 25 mg Capsule PO (08:33)
--- NOTE | 2020-09-19 09:07 | PC.CHAP ---
Pastoral Care Encounter/Spiritual Assessment Type of Contact [] Declined travel agent visit [] Patient/Family/Request visit [] Outpatient visit [] Follow-up visit [] Physician referral [] Code/Alert [X] Routine visit [] Staff referral [] Actively dying [] Patient sleeping [] Family support [] [] Out of room [] Palliative care [] [] Receiving care in room [] Pre-surgical visit [] Trauma [] Long length of stay [] ICU visit [] Other: Relational/Emotional Strength [] Patient feels connected with others/family/visitors/staff [] Distress [] Loneliness/isolation [] Abandonment Spirituality of Patient [] Person of Susan [] Attends Druze of their Susan [] Believes in Prayer [] Reads Bible or Adventism materials [] There are Spiritual issues to be addressed Pet Care Worker Interventions [] Prayer [] Active listening [] Non-anxious presence [] Spiritual/emotional support [] Crisis/trauma care [] Spiritual counseling [] Bereavement support [] Provided bereavement packet [] Provided Bible/devotional materials [] Provided toy/stuffed animal, coloring book to patient or family member [] Provided Communion [] Anointing/[place] [] Salvation [] Completed spiritual assessment [] Other: Impact on Illness or Injury [] Angry [] Fearful [] Anxious [] Often cries [] Exhaustion [] Unable to work [] Unable to attend mosque [] Unable to walk/stand [] Unable to read [] Unable to drive [] Unable to eat/drink [] Unable to sleep [] Unable to be with family [] Patient intubated [] Other: Summary Time spent with patient
[2020-09-19] MEDS: ondansetron 2 mg/ML SDV 2 mL 4 MG IVP ×3 (11:13→17:56)
--- NOTE | 2020-09-19 11:31 | P.ANESASSM_ITS ---
Pre-Anesthetic Assessment Pre-Anesthetic Assessment: Height/Weight: Height 1.63 m Weight 122.47 kg Temp Pulse Resp BP Pulse Ox 97.6 F 57 L 18 102/43 95 09/19/20 07:51 09/19/20 11:02 09/19/20 11:02 09/19/20 11:02 09/19/20 11:02 Preop Diagnosis: Incarcerated ventral hernia Proposed Procedure: Operation Date: 09/19/20 09:50 Proposed Procedures p Ventral Hernia Repair (Open)(Not Applicable) - Amandeep Griffith MD Was Beta Thanh taken within 24 hours: N/A Last intake: Intake Last Liquid Date 09/18/20 Last Liquid Time 23:59 Last Solid Date 09/18/20 Last Solid Time 12:00 Social: Social History: No alcohol and No tobacco Exam: Pre-Anes Outpt Exam: alert, oriented x 3, clear to auscultation bilaterally and regular rate & rhythm Airway: Submandibular: WNL Cervical ROM: WNL MP: 2 Dentition: Full Pulmonary: Pulmonary: Asthma CV/HEM: CV/HEM: None reported : : None reported Hepatic: Hepatic: None reported GI: GI: GERD Metabolic: Metabolic: Morbid obesity Musc/skel: Musc/skel: Fibromyalgia Neuropsych: Neuropsych: Anxiety and Depression Anesthetic Plan: ASA status: 3 Anesthesia: General Risk of > 500 ml blood loss (7ml/kg in children): No Meds/Allergies Current Medications: Current Medications Generic Name Dose Route Start Last Admin Trade Name Freq PRN Reason Stop Dose Admin Bupropion HCl 150 mg 09/19/20 06:00 09/19/20 05:51 Bupropion Xl (24 Hr) 150 Mg Tablet PO 150 mg QAM AIDE Administration Buspirone HCl 10 mg 09/18/20 21:00 09/19/20 08:33 Buspirone 10 Mg Tablet PO 10 mg TID AIDE Administration Fluticasone Propio usha 2 puff 09/19/20 09:00 09/19/20 07:48 Fluticasone 220m cg Inhaler 12gm INHALATION 2 puff BID.RESPIRATORY S CH Administration Heparin Sodium (Be ef Lung) 5,000 unit 09/18/20 22:30 09/19/20 05:52 Heparin 5,000 Un it/Ml Inj 1 Ml SUBCUT 5,000 unit Q8H AIDE Administration Hydromorphone HCl 1 - 2 mg 09/19/20 01:02 09/19/20 06:25 Hydromorphone 1 Mg/Ml Inj 1 Ml IVP 1 mg Q4H PRN Administration PAIN Hydroxyzine Pamoat e 25 mg 09/18/20 20:00 09/19/20 08:33 Hydroxyzine 25 M g Capsule PO 25 mg QID PRN Administration anxiety Piperacillin Sod/T azobactam 50 mls @ 12.5 mls /hr 09/19/20 03:00 09/19/20 10:06 Sod 3.375 gm/ So dium Chloride IV 12.5 mls/hr Q8H AIDE Administration Protocol Sodium Chloride 1,000 mls @ 150 m ls/hr 09/18/20 22:30 09/19/20 11:04 Sodium Chloride 0.9% IV Infused .Q6H40M AIDE Infusion Lanolin 1 applic 09/19/20 00:49 09/19/20 01:07 Lanolin Oint 7 G m TOPICAL 1 tube PRN PRN Administration DRYNESS Montelukast Sodium 10 mg 09/18/20 21:00 09/18/20 23:02 Montelukast Sodi um 10 Mg Tablet PO 10 mg BEDTIME AIDE Administration Pantoprazole Sodiu m 40 mg 09/19/20 09:00 09/19/20 08:[address] 40 Mg Tablet PO 40 mg DAILY AIDE Administration Trazodone HCl 50 mg 09/18/20 21:00 09/18/20 23:03 Trazodone 50 Mg Tablet PO 50 mg BEDTIME AIDE Administration PFSH Anesthesia PFSH: Medical History Asthma Blood type O- Fibromyalgia Generalized anxiety disorder Major depressive disorder, recurrent severe without psychotic features Migraine without aura Obesity Post-traumatic stress disorder, chronic Surgical History History of abdominoplasty (2012) Pannus removal, karen peña @ [facility] History of bilateral breast reduction surgery (2007) History of cholecystectomy Family History Mother Hypertension Diabetes Graves disease Grandmother Stroke Maternal Father Hypercholesterolemia Grandfather Cancer Maternal Grandfather: Mesothelioma Grandfather Colon cancer Paternal Social History Smoking and tobacco status: never smoked Alcohol intake: never Additional social history: Well-balanced diet No substance abuse. Female Reproductive History: Date of last menstrual period: 08/31/20 Para: 3 Spontaneous abortions: No Data Anesthesia CBC & Chem 7: 09/19/20 04:57 09/19/20 04:57 Other Labs: Laboratory Results - last 48 hr 09/18/20 09/18/20 09/18/20 16:11 16:19 16:19 WBC 6.4 RBC 5.36 H Hgb 14.1 Hct 44.6 MCV 83.2 MCH 26.3 L MCHC 31.6 RDW 14.4 Plt Count 269 MPV 11.4 H Neut % (Auto) 72.4 Lymph % (Auto) 21.0 Barnes % (Auto) 5.7 Eos % (Auto) 0.5 Baso % (Auto) 0.2 Neut # (Auto) 4.62 Lymph # (Auto) 1.3 Barnes # (Auto) 0.4 Eos # (Auto) 0.0 Baso # (Auto) 0.0 Nucleated RBC % (auto) 0 Nucleated RBCs # 0.0 Sodium 141 Potassium 3.6 Chloride 104 Carbon Dioxide 28 Anion Gap 12.6 BUN 9 Creatinine 0.8 GFR Calculation 81.2 L Glucose 104 Calculated Osmolality 291 Calcium 8.7 Total Bilirubin 0.7 AST 36 H ALT 70 H Alkaline Phosphatase 130 H Total Protein 7.1 Albumin 3.9 Globulin 3.2 Lipase 13 Urine Color Yellow Urine Appearance Clear Urine pH 5 Ur Specific [place] 1.020 Urine Protein Neg Urine Glucose (UA) Norm Urine Ketones Negative Urine Blood Neg Urine Nitrate Negative Urine Bilirubin 1+ H Urine Urobilinogen 4 H Ur Leukocyte Esterase Negative 09/19/20 09/19/20 04:57 04:57 WBC 4.2 RBC 4.57 Hgb 12.1 Hct 39.1 MCV 85.6 MCH 26.5 L MCHC 30.9 RDW 14.4 Plt Count 220 MPV 11.5 H Neut % (Auto) 55.2 Lymph % (Auto) 35.2 Barnes % (Auto) 8.2 Eos % (Auto) 1.0 Baso % (Auto) 0.2 Neut # (Auto) 2.29 Lymph # (Auto) 1.5 Barnes # (Auto) 0.3 Eos # (Auto) 0.0 Baso # (Auto) 0.0 Nucleated RBC % (auto) 0 Nucleated RBCs # 0.0 Sodium 143 Potassium 3.7 Chloride 109 H Carbon Dioxide 27 Anion Gap 10.7 BUN 8 Creatinine 0.9 GFR Calculation 70.8 L Glucose 88 Calculated Osmolality 294 Calcium 7.8 L Total Bilirubin 0.9 AST 164 H ALT 153 H Alkaline Phosphatase 121 H Total Protein 5.9 L Albumin 3.3 L Globulin 2.6 Lipase Urine Color Urine Appearance Urine pH Ur Specific [place] Urine Protein Urine Glucose (UA) Urine Ketones Urine Blood Urine Nitrate Urine Bilirubin Urine Urobilinogen Ur Leukocyte Esterase Cardiac Studies: No Data to Display
[2020-09-19] MEDS: sodium chloride 0.9% 1,000 ML 30 ML (11:50)
[2020-09-19 13:03] LABS: HCG Qualitative Urine. Negative (Negative)
[2020-09-19] MEDS: lidocaine 2% INJ 20 mL INJECTION (13:58)
--- NOTE | 2020-09-19 14:50 | PM.OP ---
Operative Report Date of procedure: September 19, 2020 Pre-op Diagnosis: Incarcerated ventral hernia Post-op diagnosis: same Post-op Diagnosis: Viable omentum without signs of ischemia Procedure Done: Open ventral abdominal hernia repair with mesh placement Implants: Polypropylene mesh approximately 4 x 7 cm. Onlay technique Specimens removed/disposition: Hernia sac and contents Surgeon: Amandeep Griffith Flexible Machining System Machinist: Surgical Hedy Hunt and medical student Kanwal Fernandez nurse Joy Anesthesia: General (Praveen Ang/Dr. Keating) Estimated blood loss (mL): 15 Condition: stable Disposition: observation Brief History: This is a pleasant 34 years old female patient presented with incarcerated ventral wall hernia appears to be more chronically incarcerated. Her pain got worse.Admitted to surgical service for care and intervention. Indications, risks, benefits and alternatives were discussed with the patient and she did agree to proceed accordingly. Informed consent per chart Procedure: Patient was identified in holding area and the site of the hernia was marked by me,Patient was brought then to the operating room, general endotracheal anesthesia was administered by the anesthesia provider.prophylactic IV antibiotics were given per protocol Time-out was done verifying the patient's name/date of /planned procedure and destination after the procedure, all were in agreement.SCDs confirmed to be functioning,preoperative antibiotics administered per protocol,and beta delvin protocol was confirmed.Patient was given prophylactic heparin subcutaneous prior to surgery. Prep and drape of the abdomen was done under the usual sterile technique. I started by Infraumbilical skin incision.I was able to identify the incarcerated large ventral incisional hernia,dissection was carried all the way down to the fascia,hernia sac was then opened and the sac was excised in addition to excess omental tissues.Tissues excise sent for permanent pathology. Otherwise viscera looked viable. I was able to free the overlying fat on top of the fascia, facilitate primary closure At that point the fascial defect was about two inches in diameter,after freeing all the adhesions,under direct visualization I was able to use #1 PDS to repair the defect primarily,as an interrupted horizontal mattress sutures,thorough irrigation of the wound was then achieved and hemostasis. Followed by onlay polypropylene mesh, mesh was stabilized by 2-0 silk sutur followed by 2-0 Vicryl was used to attach the umbilicus to the underlying fascia,followed by deep dermal interrupted stitches,followed by skin giana for closure of the skin incision. Lidocaine 2% was used for local infiltration to help postoperative pain Dry dressing was then applied Counts of sponges,needles and instruments were completed at the end of the procedure Patient tolerated the procedure well and was taken to the recovery area in stable condition I was present for the whole entire procedure
--- NOTE | 2020-09-19 15:33 | ANE.PACU2 ---
Inpatient post-anesthesia follow up: Airway intact: Yes Vital signs: Temperature 97.6 F Pulse Rate [Left R adial] 94 Pulse Rate 57 Respiratory Rate 18 Blood Pressure [Ri ght Arm] 122/87 Blood Pressure 102/43 Pulse Oximetry 95 Oxygen Delivery Me thod Room Air Oxygen Flow Rate Fraction of Inspir ed Oxygen Hydration adequate: Yes Nausea and vomiting: No Pain level: 2 Additional Comments: Sedate
[2020-09-19] MEDS: HYDROcodone-acetaminophen 5-325 mg Tablet 1 TAB PO (17:56)
--- NOTE | 2020-09-19 18:58 | PM.PN ---
Subjective Subjective: Interval history: No acute event Overnight. S/P Open ventral abdominal hernia repair with mesh placement. Vitals and labs have been reviewed Vitals/I&O/Wt Last Vital Signs Temp 97.9 F 09/19/20 16:40 Pulse 53 L 09/19/20 17:40 Resp 16 09/19/20 17:06 BP 131/80 09/19/20 17:40 Pulse Ox 92 09/19/20 17:40 09/19/20 09/19/20 09/19/20 06:59 14:59 22:59 Intake Total 987.5 / 2037.5 1000 / 1000 480 / 1480 Output Total 400 / 400 220 / 220 400 / 620 Balance 587.5 / 1637.5 780 / 780 80 / 860 Weight last 48 hrs Weight 122.47 kg Physical Exam Const: COMMON NORMALS: patient oriented x3 HENMT: COMMON NORMALS: normocephalic and atraumatic HEAD & SCALP: normocephalic and atraumatic Chest: COMMONS NORMALS: normal inspection of the chest and normal palpation of entire chest wall CHEST: Yes Symmetrical chest wall rise Resp: COMMON NORMALS: normal respiratory effort, No retractions, No use of accessory muscles and clear to auscultation bilaterally EFFORT & INSPECTION: Yes symmetric chest movement AUSCULTATION: clear to auscultation bilaterally Cardio: COMMON NORMALS: regular rate, regular rhythm, S1 normal heart sound present, S2 normal heart sound present, No gallops present (Cardio), No murmurs present (Cardio), No rub (Cardio) and Peripheral pulses 2+ throughout RATE: regular rate RHYTHM: regular rhythm HEART SOUNDS: S1 normal heart sound present and S2 normal heart sound present PERIPHERAL PULSES: Peripheral pulses 2+ throughout GI: COMMON NORMALS: Soft to palpation AUSCULTATION: Yes normoactive bowel sounds PALPATION: Yes Soft to palpation RECTAL EXAM: deferred Extremity: COMMON NORMALS: no clubbing, cyanosis or edema and no pedal edema Neuro: COMMON NORMALS: patient oriented x3 Urinary Catheter Management^: Astudillo: Cath Placed During This Visit: yes Urinary Catheter Date of Insertion: 09/19/20 Urinary Catheter Time of Insertion: 13:40 Data : 09/19/20 04:57 09/19/20 04:57 A&P Assessment and plan (1) Asthma: Asthma currently well controlled, no wheezing, no SOB, saturating well on R.A. Continue Ventolin inhaler 2 puffs inhalation every 6 hours as needed Continue Flovent 2 puff inhalation twice daily scheduled. Status: Acute (2) Fibromyalgia: Status: Acute (3) Generalized anxiety disorder: Continue BUSPAR 10 MG PO TID Status: Chronic (4) Environmental and seasonal allergies: Status: Acute (5) Post-traumatic stress disorder, chronic: Status: Chronic Additional A&P Information Thanks for the consult Medicine will continue to follow. Attestations Medical Necessity Statement*: Patient needs to be in hospital for the management of S/P Open ventral abdominal hernia repair with mesh placement. Coding Level of Care Code Acute Construction Electrician for Jess Clarkd Diagnoses Asthma J45.909 Fibromyalgia M79.7 Generalized anxiety disorder F41.1 Environmental and seasonal allergies J30.89 Post-traumatic stress disorder, chronic F43.12
[2020-09-19] MEDS: trazodone 50 mg Tablet PO (20:21)
[2020-09-19] MEDS: montelukast sodium 10 mg Tablet PO (20:21)
[2020-09-20] MEDS: sodium chloride 0.9% 1,000 ML 150 ML IV ×2 (00:13→07:12)
[2020-09-20] MEDS: HYDROcodone-acetaminophen 5-325 mg Tablet 1 TAB PO ×2 (00:14→07:37)
[2020-09-20] MEDS: piperacillin-tazobactam 3.375 GM in sodium chloride 0.9% (plus) 50 ML IV (03:56)
[2020-09-20 04:00] VITALS: BP 126/89; PULSE 56; RESP 20; TEMP 36.6; O2SAT 93
[2020-09-20 05:16] LABS: Hematocrit 38.7 % (37.0-47.0); Lymphocytes # 0.8 10^3/uL (0.8-4.8); Lymphocytes % 13.2 %; Mean Corpuscular Hemoglobin 26.5 pg (28.0-34.0); Mean Corpuscular Volume 85.6 fL (81-99); Mean Platelet Volume 11.7 fL (7.4-10.4); Monocytes # 0.2 10^3/uL (0.2-0.9); Neutrophils # 4.76 10^3/uL (1.8-7.7); Neutrophils % 82.6 %; Nucleated Red Blood Cells % 0 %; Platelet Count 237 10^3/cmm (130-400); Red Blood Count 4.52 10^6/uL (4.1-5.3); Red Cell Distribution Width 14.5 % (12.1-15.1); White Blood Count 5.8 10^3/uL (4.0-10.0)
[2020-09-20] MEDS: buPROPion XL (24 HR) 150 mg Tablet PO (05:18)
--- NOTE | 2020-09-20 05:46 | PM.PN ---
Subjective Subjective: Interval history: Patient overall doing well and feels better. No acute events overnight and good urine output. Tolerating p.o. intake. Labs are appropriate. Vitals/I&O/Wt Last Vital Signs Temp 97.9 F 09/20/20 04:00 Pulse 56 L 09/20/20 04:00 Resp 20 H 09/20/20 04:00 BP 126/89 09/20/20 04:00 Pulse Ox 93 09/20/20 04:00 09/19/20 09/19/20 09/20/20 14:59 22:59 06:59 Intake Total 1000 / 1000 530 / 1530 940 / 2470 Output Total 220 / 220 400 / 620 950 / 1570 Balance 780 / 780 130 / 910 -10 / 900 Weight last 48 hrs Weight 270 lb Physical Exam Narrative: EXAM NARRATIVE: Patient is conscious alert oriented X3 BMI 46 Head and neck examination PERRLA no masses no cervical lymphadenopathy no jaundice Cardiac examination audible S1-S2 no murmurs no gallops no arrhythmias Chest is clear bilateral,abscence of Rhonchi or wheezes,no surgical emphysema Abdomen nontender nondistended soft no organomegaly guarding or rigidity/no signs of peritonitis Dry dressing Morbidly obese Extremities no cyanosis no clubbing no edema Urinary Catheter Management^: Astudillo: Cath Placed During This Visit: yes Urinary Catheter Date of Insertion: 09/19/20 Urinary Catheter Time of Insertion: 13:40 Data : 09/20/20 04:30 09/20/20 04:30 A&P Assessment and plan (1) Incarcerated ventral hernia: Patient is a status post open ventral hernia repair for incarcerated hernia with mesh placement 09/19/2020 From surgical standpoint of view we will advance diet as tolerated Patient can be discharged home today and return to surgery office in 10 days Encourage incentive spirometer every hour while awake Abdominal binder for comfort Avoid constipation Encourage ambulation to avoid potential DVT Assurance and education All questions have been answered and all concerns have been addressed to patient's satisfaction. Status: Resolved Attestations Medical Necessity Statement*: Patient required inpatient hospitalization for medical and surgical care, patient had bronchial asthma requiring medical management and optimization prior to surgical intervention. Undergone surgical repair of the hernia later through the day that required patient to be kept overnight for appropriate recovery and pain control. Time Spent in Patient Care: (>than 50% of time spent in counselling and/or direct pt care on unit). Coding Level of Care Code Acute Healthcare Economics Consultant for Chg Fwd Diagnoses Incarcerated ventral hernia K43.6
[2020-09-20 05:50] LABS: Alanine Aminotransferase 116 U/L (0-33); Albumin Level 3.4 g/dL (3.5-5.2); Alkaline Phosphatase 118 IU/L (35-105); Anion Gap 13.1 (5-19); Aspartate Amino Transferase 53 U/L (0-32); Blood Urea Nitrogen 6 mg/dL (6-20); Carbon Dioxide 24 mmol/L (22-29); Chloride 109 mmol/L (98-107); Globulin 2.8 g/dL (1.3-4.6); Glomerular Filtration Rate 70.8 mL/min (90-130); Glucose 122 mg/dL (65-115); Osmolality Calculated 293 mOsm/kg (285-295); Potassium 4.1 mmol/L (3.5-5.1); Sodium 142 mmol/L (136-145); Total Bilirubin 0.7 mg/dL (0.15-1.2); Total Protein 6.2 g/dL (6.6-8.7)
--- NOTE | 2020-09-20 06:06 | P.DS_ITS ---
Discharge Providers Date of Admission: 09/18/20 18:22 Date of Discharge: September 20, 2020 Attending Provider at Admission: Amandeep Griffith MD Attending Provider at Discharge: Amandeep Griffith MD Primary Care Provider: Xena Horton DO Diagnoses at Discharge Discharge Diagnosis (1) Incarcerated ventral hernia: Status: Resolved Permanent problem details: We will plan to discharge patient home to the on oral pain medication and specific instructions were given to the patient with regard to weightbearing. Return to surgery office in 10 days. Reason for Visit Reason for Visit: ABD PAIN, NAUSEA/VOMIT Hospital Course Hospital Course This is a pleasant 34 years old female patient presented to the emergency department with worsening abdominal pain and was found to have incarcerated ventral hernia. Patient was admitted to surgery service and hospitalist was consulted for management of medical comorbidities including but not limited to bronchial asthma. Patient was taken for surgical intervention in the form of open ventral hernia repair with mesh placement. And was kept overnight as surgery took place later through the day, for pain control and appropriate tolerance of p.o. intake which she did achieve after surgery. Patient was given pharmacologic DVT prophylaxis due to her morbid obesity status to prevent potential DVT. Overall patient did well and required inpatient hospitalization for medical and surgical care. Continue to have stable vital signs and appropriate urine output. Plan to discharge patient home today. Physical Exam Urinary Catheter Management^: [place]: Cath Placed During This Visit: yes Urinary Catheter Date of Insertion: 09/19/20 Urinary Catheter Time of Insertion: 13:40 Discharge Data Data Completed and Pending: Completed Studies During Hospitalization Category Date Time Status CT abdomen pelvis w con* [id number] Stat Cat Scan 09/18/20 16:56 Completed Pending at discharge Category Date Time Status Pathology: Surgic al [PTH] Routine Pth 09/19/20 14:47 Ordered Labs from last 24 hours 09/20/20 09/20/20 09/19/20 04:30 04:30 04:57 WBC 5.8 RBC 4.52 Hgb 12.0 Hct 38.7 MCV 85.6 MCH 26.5 L MCHC 31.0 RDW 14.5 Plt Count 237 MPV 11.7 H Neut % (Auto) 82.6 Lymph % (Auto) 13.2 [place] % (Auto) 4.0 Eos % (Auto) 0.0 Baso % (Auto) 0.0 Neut # (Auto) 4.76 Lymph # (Auto) 0.8 [place] # (Auto) 0.2 Eos # (Auto) 0.0 Baso # (Auto) 0.0 Nucleated RBC % (a uto) 0 Nucleated RBCs # 0.0 Sodium 142 143 Potassium 4.1 3.7 Chloride 109 H 109 H Carbon Dioxide 24 27 Anion Gap 13.1 10.7 BUN 6 8 Creatinine 0.9 0.9 GFR Calculation 70.8 L 70.8 L Glucose 122 H 88 Calculated Osmolal ity 293 294 Calcium 8.0 L 7.8 L Total Bilirubin 0.7 0.9 AST 53 H 164 H ALT 116 H 153 H Alkaline Phosphata se 118 H 121 H Total Protein 6.2 L 5.9 L Albumin 3.4 L 3.3 L Globulin 2.8 2.6 HCG, Qual 09/18/20 16:11 WBC RBC Hgb Hct MCV MCH MCHC RDW Plt Count MPV Neut % (Auto) Lymph % (Auto) [place] % (Auto) Eos % (Auto) Baso % (Auto) Neut # (Auto) Lymph # (Auto) [place] # (Auto) Eos # (Auto) Baso # (Auto) Nucleated RBC % (a uto) Nucleated RBCs # Sodium Potassium Chloride Carbon Dioxide Anion Gap BUN Creatinine GFR Calculation Glucose Calculated Osmolal ity Calcium Total Bilirubin AST ALT Alkaline Phosphata se Total Protein Albumin Globulin HCG, Qual Negative Vitals: Last Vital Signs Temp 97.9 F 09/20/20 04:00 Pulse 56 L 09/20/20 04:00 Resp 20 H 09/20/20 04:00 BP 126/89 09/20/20 04:00 Pulse Ox 93 09/20/20 04:00 Discharge Plan Discharge Patient Disposition: Home Condition: Stable Prescriptions: [place] 5-325 mg tablet 1 tab PO Q6H PRN (Reason: pain) Qty: 28 RF: 0 Continued omeprazole 20 mg capsule,delayed release(DR/EC) 20 mg PO DAILY 30 Days Qty: 30 RF: 10 cetirizine [Zyrtec] 10 mg tablet 10 mg PO DAILY Qty: 30 RF: 2 albuterol sulfate 2.5 mg/0.5 mL solution for nebulization 2.5 mg INHALATION ONCE Qty: 1 RF: 0 buspirone 10 mg tablet 10 mg PO TID Qty: 90 RF: 1 bupropion HCl [Wellbutrin XL] 150 mg tablet extended release 24 hr 150 mg PO QAM Qty: 30 RF: 1 hydroxyzine HCl 25 mg tablet 25 mg PO QID PRN (Reason: anxiety) Qty: 120 RF: 1 trazodone 50 mg tablet 50 mg PO .HS Qty: 30 RF: 1 prazosin 2 mg capsule 2 mg PO .HS Qty: 30 RF: 1 albuterol sulfate [ProAir HFA] 90 mcg/actuation HFA aerosol inhaler 2 puff INHALATION Q6H PRN (Reason: Shortness Of Breath Or Wheezing) RF: 0 fluticasone propionate [Allergy Relief (fluticasone)] 50 mcg/actuation spray,suspension 2 spray INTRANASAL BID RF: 0 Flovent HFA 220 mcg/actuation HFA aerosol inhaler 2 puff INHALATION BID Qty: 12 RF: 1 montelukast 10 mg tablet 10 mg PO .at bedtime 30 Days Qty: 30 RF: 1 prenat.vits,maya,nqt-[id number] Tablet 1 tab PO DAILY Qty: 30 RF: 1 cyclobenzaprine 10 mg tablet 10 mg PO BID PRN (Reason: Muscle Pain) RF: 0 acetaminophen 325 mg tablet 650 mg PO Q4H PRN (Reason: fever or pain) Qty: 60 RF: 0 Held diclofenac sodium 50 mg tablet,delayed release (DR/EC) 50 mg PO DAILY PRN (Reason: Pain) RF: 0 Hold Instructions: Resume on 09/22/20. Discharge Orders: Discharge Order (Routine); Ordered 09/20/20 Ordered By: Amandeep Griffith Referrals: Amandeep Griffith MD [Physician] - (Return to surgery office in 10 days) Discharge Diet: Advance as tolerated Discharge Activity: Limit activity as instructed Activity Restrictions/Additional Instructions: 1. Patient can shower after 48 hours from surgery 2. Remove seen tomorrow and shower and keep umbilical region clean. And dry 3. Up and walking as tolerated 4. Do lift more than 5 pounds first 2 weeks after surgery and not more than 25 pounds 6 to 8 weeks after surgery. 5. Do not operate heavy machinery or drive while using pain medications. 6.Contact the office or return to the ER for worsening nausea vomiting fevers or chills, or noticing any redness around incision sites or discharge. 7. Avoid constipation 8. 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
[2020-09-20 07:48] VITALS: BP 131/84; PULSE 70; RESP 16; TEMP 36.6; O2SAT 94
[2020-09-20] MEDS: pantoprazole DR 40 mg Tablet PO (08:11)
[2020-09-20] MEDS: BuSPIRONE 10 mg Tablet PO (08:11)
--- NOTE | 2020-09-20 08:30 | PC.NURSE ---
Patient requesting something more to eat other than liquids. Per Dr. Griffith written orders diet may be advanced as tolerated. Dr. Rey notified and Regular diet approved since discharge is being planned for today.
[2020-09-20 08:47] VITALS: PULSE 70; RESP 16; O2SAT 94
[2020-09-20 11:25] VITALS: BP 143/83; PULSE 59; RESP 17; TEMP 36.5; O2SAT 98
[2020-09-20 12:11] VITALS: BP 143/83; PULSE 59; RESP 17; TEMP 36.5; O2SAT 98
== END 2020-09-20 11:00 | disposition home or self-care (01) | DRG 354 ==
LOC: ER 16:07 → MEDSURG 19:52
PROVIDERS: Anesthesiology; Internal Medicine; Admitting Provider Surgery; Emergency Provider Family Medicine; PCP Internal Medicine; Visit Provider Surgery
PROC: 0WQF0ZZ Repair Abdominal Wall, Open Approach (ICD-10-PCS; principal; 2020-09-19 09:30)
DX: K43.6 Other and unspecified ventral hernia with obstruction, without gangrene (principal); F33.2 Major depressive disorder, recurrent severe without psychotic features; Z68.42 Body mass index [BMI] 45.0-49.9, adult; F41.1 Generalized anxiety disorder; J30.89 Other allergic rhinitis; F43.12 Post-traumatic stress disorder, chronic; M79.7 Fibromyalgia; E66.9 Obesity, unspecified
CPT/HCPCS: 12345; 36415; 74177; 80053; 81003; 81025; 83690; 85025; 88302; 94640; 96365; 96372; 99283; J0131; J1100; J1170; J1644; J1885; J2250; J2270; J2405; J2543; J2704; J2710; J3010; J3490; J3535; J7030; Q9967

== ENCOUNTER → 2020-10-19 08:17 | Outpatient (BNVA) | payer MEDICAID, SELFPAY | PROVIDERS: PCP Internal Medicine; Visit Provider Nurse Practitioner | DX: F43.12 Post-traumatic stress disorder, chronic (principal); F41.1 Generalized anxiety disorder; F33.2 Major depressive disorder, recurrent severe without psychotic features | CPT/HCPCS: 99214 ==

== ENCOUNTER → 2020-11-13 15:04 | Outpatient (BNVA) | payer MEDICAID, SELFPAY | PROVIDERS: PCP Internal Medicine; Visit Provider Obstetrics & Gynecology | DX: Z32.01 Encounter for pregnancy test, result positive (principal) | CPT/HCPCS: 81025 ==

== ENCOUNTER → 2020-12-10 10:36 | Outpatient (BNVA) | payer MEDICAID, SELFPAY | PROVIDERS: PCP Internal Medicine; Visit Provider Obstetrics & Gynecology | DX: Z34.80 Encounter for supervision of other normal pregnancy, unspecified trimester (principal) | CPT/HCPCS: 80307; 83036; 84315; 85025; 86592; 86762; 86803; 86850; 86900; 87086; 87340; 87491; 87591 ==

== ENCOUNTER → 2020-12-24 09:15 | Outpatient (BNVA) | payer MEDICAID, SELFPAY | PROVIDERS: PCP Internal Medicine; Visit Provider Obstetrics & Gynecology | DX: O09.899 Supervision of other high risk pregnancies, unspecified trimester (principal); O09.299 Supervision of pregnancy with other poor reproductive or obstetric history, unspecified trimester; O26.899 Other specified pregnancy related conditions, unspecified trimester; Z67.91 Unspecified blood type, Rh negative; Z12.4 Encounter for screening for malignant neoplasm of cervix; O09.521 Supervision of elderly multigravida, first trimester | CPT/HCPCS: 84315; 88175 ==

== ENCOUNTER → 2021-01-23 12:45 | Outpatient (BNVA) | payer MEDICAID, SELFPAY | PROVIDERS: PCP Internal Medicine; Visit Provider Nurse Practitioner Women's Health | DX: O09.299 Supervision of pregnancy with other poor reproductive or obstetric history, unspecified trimester (principal); Z3A.00 Weeks of gestation of pregnancy not specified | CPT/HCPCS: 81000 ==

== ENCOUNTER → 2021-01-30 14:20 | Outpatient (BNVA) | payer MEDICAID, SELFPAY | PROVIDERS: PCP Internal Medicine; Visit Provider Obstetrics & Gynecology | DX: O99.340 Other mental disorders complicating pregnancy, unspecified trimester; F32.9 Major depressive disorder, single episode, unspecified; O09.522 Supervision of elderly multigravida, second trimester; Z67.91 Unspecified blood type, Rh negative; O26.899 Other specified pregnancy related conditions, unspecified trimester; F41.9 Anxiety disorder, unspecified; Z3A.00 Weeks of gestation of pregnancy not specified | CPT/HCPCS: 81000 ==

== ENCOUNTER → 2021-02-07 13:34 | Outpatient (BNVA) | payer MEDICAID, SELFPAY | PROVIDERS: PCP Internal Medicine; Visit Provider Obstetrics & Gynecology | DX: O09.299 Supervision of pregnancy with other poor reproductive or obstetric history, unspecified trimester (principal); Z3A.00 Weeks of gestation of pregnancy not specified | CPT/HCPCS: 81000; 81511 ==

== ENCOUNTER → 2021-02-25 08:12 | Outpatient (BNVA) | payer MEDICAID, SELFPAY | PROVIDERS: PCP Internal Medicine; Visit Provider Obstetrics & Gynecology | DX: O09.299 Supervision of pregnancy with other poor reproductive or obstetric history, unspecified trimester (principal); O99.340 Other mental disorders complicating pregnancy, unspecified trimester; F32.9 Major depressive disorder, single episode, unspecified; Z3A.00 Weeks of gestation of pregnancy not specified | CPT/HCPCS: 81000 ==

== ENCOUNTER → 2021-03-04 12:46 | Outpatient (BNVA) | payer MEDICAID, SELFPAY | PROVIDERS: PCP Internal Medicine; Visit Provider Obstetrics & Gynecology | DX: O09.299 Supervision of pregnancy with other poor reproductive or obstetric history, unspecified trimester (principal); O09.899 Supervision of other high risk pregnancies, unspecified trimester; O99.340 Other mental disorders complicating pregnancy, unspecified trimester; F32.9 Major depressive disorder, single episode, unspecified; F41.9 Anxiety disorder, unspecified; O26.899 Other specified pregnancy related conditions, unspecified trimester; Z67.91 Unspecified blood type, Rh negative; O09.522 Supervision of elderly multigravida, second trimester; Z3A.00 Weeks of gestation of pregnancy not specified | CPT/HCPCS: 81000 ==

== ENCOUNTER → 2021-03-11 15:22 | Outpatient (BNVA) | payer MEDICAID, SELFPAY | PROVIDERS: PCP Internal Medicine; Visit Provider Obstetrics & Gynecology | DX: O09.522 Supervision of elderly multigravida, second trimester; Z3A.00 Weeks of gestation of pregnancy not specified | CPT/HCPCS: 81000 ==

== ENCOUNTER → 2021-03-19 14:06 | Outpatient (BNVA) | payer MEDICAID, SELFPAY | PROVIDERS: PCP Internal Medicine; Visit Provider Nurse Practitioner Women's Health | DX: O09.899 Supervision of other high risk pregnancies, unspecified trimester (principal); O09.299 Supervision of pregnancy with other poor reproductive or obstetric history, unspecified trimester; Z86.32 Personal history of gestational diabetes; F41.9 Anxiety disorder, unspecified; F32.9 Major depressive disorder, single episode, unspecified; O99.340 Other mental disorders complicating pregnancy, unspecified trimester; O26.899 Other specified pregnancy related conditions, unspecified trimester; Z67.91 Unspecified blood type, Rh negative; O09.522 Supervision of elderly multigravida, second trimester | CPT/HCPCS: 81000 ==

== ENCOUNTER → 2021-03-28 10:05 | Outpatient (BNVA) | payer MEDICAID, SELFPAY | PROVIDERS: PCP Internal Medicine; Visit Provider Obstetrics & Gynecology | DX: O09.899 Supervision of other high risk pregnancies, unspecified trimester (principal); O09.299 Supervision of pregnancy with other poor reproductive or obstetric history, unspecified trimester; Z86.32 Personal history of gestational diabetes; O26.899 Other specified pregnancy related conditions, unspecified trimester; Z67.91 Unspecified blood type, Rh negative; O09.522 Supervision of elderly multigravida, second trimester; O99.340 Other mental disorders complicating pregnancy, unspecified trimester; F32.9 Major depressive disorder, single episode, unspecified; F41.9 Anxiety disorder, unspecified | CPT/HCPCS: 81000 ==

== ENCOUNTER → 2021-03-29 12:00 | Outpatient (BNVA) | payer MEDICAID, SELFPAY | PROVIDERS: PCP Internal Medicine; Visit Provider Nurse Practitioner | DX: F43.12 Post-traumatic stress disorder, chronic (principal); F41.1 Generalized anxiety disorder; F33.2 Major depressive disorder, recurrent severe without psychotic features | CPT/HCPCS: 99214 ==

== ENCOUNTER → 2021-04-15 10:37 | Outpatient (BNVA) | payer MEDICAID, SELFPAY | PROVIDERS: PCP Internal Medicine; Visit Provider Obstetrics & Gynecology | DX: O09.899 Supervision of other high risk pregnancies, unspecified trimester (principal); Z86.32 Personal history of gestational diabetes; O99.340 Other mental disorders complicating pregnancy, unspecified trimester; F32.9 Major depressive disorder, single episode, unspecified; F41.9 Anxiety disorder, unspecified; O09.522 Supervision of elderly multigravida, second trimester; Z67.91 Unspecified blood type, Rh negative | CPT/HCPCS: 81000; 85025; 86850 ==

== ENCOUNTER → 2021-04-22 13:00 | Outpatient (BNVA) | payer MEDICAID, SELFPAY | PROVIDERS: PCP Internal Medicine; Visit Provider Obstetrics & Gynecology | DX: O09.899 Supervision of other high risk pregnancies, unspecified trimester (principal); Z86.32 Personal history of gestational diabetes | CPT/HCPCS: 81000 ==

== ENCOUNTER 2021-04-25 12:39 | Outpatient (CLI) | payer MEDICAID, SELFPAY ==
--- NOTE | 2021-04-25 12:51 | XR_ITS ---
WS: [id number] LEFT HAND: 3 VIEW(S) TECHNIQUE: PA, oblique and lateral. HISTORY: LEFT HAND PAIN COMPARISON: None available. No acute fracture or dislocation. No soft tissue or bone abnormality. XR/XR hand LT min 3V* [id number] IMPRESSION: Normal LEFT hand.
== END 2021-04-25 12:40 | disposition home or self-care (01) ==
LOC: RAD 12:42
PROVIDERS: PCP Internal Medicine; Visit Provider Family Medicine
DX: M79.642 Pain in left hand (principal)
CPT/HCPCS: 73130

== ENCOUNTER → 2021-04-29 10:58 | Outpatient (BNVA) | payer MEDICAID, SELFPAY | PROVIDERS: PCP Internal Medicine; Visit Provider Obstetrics & Gynecology | DX: O09.899 Supervision of other high risk pregnancies, unspecified trimester (principal) | CPT/HCPCS: 81000 ==

== ENCOUNTER → 2021-05-13 09:02 | Outpatient (BNVA) | payer MEDICAID, SELFPAY | PROVIDERS: PCP Internal Medicine; Visit Provider Obstetrics & Gynecology | DX: O09.899 Supervision of other high risk pregnancies, unspecified trimester (principal) | CPT/HCPCS: 81000 ==

== ENCOUNTER → 2021-05-15 11:38 | Outpatient (BNVA) | payer MEDICAID, SELFPAY | PROVIDERS: PCP Internal Medicine; Visit Provider Nurse Practitioner | DX: F43.12 Post-traumatic stress disorder, chronic (principal); F41.1 Generalized anxiety disorder; F33.2 Major depressive disorder, recurrent severe without psychotic features | CPT/HCPCS: 99214 ==

== ENCOUNTER → 2021-05-16 14:14 | Outpatient (BNVA) | payer MEDICAID, SELFPAY | PROVIDERS: PCP Internal Medicine; Visit Provider Obstetrics & Gynecology | DX: O24.419 Gestational diabetes mellitus in pregnancy, unspecified control (principal); O09.299 Supervision of pregnancy with other poor reproductive or obstetric history, unspecified trimester | CPT/HCPCS: 36416; 82962 ==

== ENCOUNTER 2021-05-30 08:35 | Outpatient (CLI) | payer MEDICAID, SELFPAY ==
[2021-05-30 08:35] VITALS: BMI 48.5
[2021-05-30 08:59] VITALS: BP 144/66; PULSE 95; RESP 19
--- NOTE | 2021-05-30 09:11 | US_ITS ---
WS: [id number] ULTRASOUND OB LIMITED TECHNIQUE: Limited ultrasound examination of the fetus. CLINICAL INFORMATION: gestational diabetes COMPARISON: May 28, 2021 FINDINGS: Technically difficult examination due to body habitus. Cervix measures 4.9 cm Single interuterine gestation. presentation is vertex Placental location is posterior. Placenta grade: 1 heart rate 164 BPM. Normal TARYN 15.7 cm greater than the median Biophysical profile 8 out of 8. breathin movement: 2 tone: 2 Amniotic fluid: 2 US/US OB BPP wo NST [id number] IMPRESSION: 1. Normal biophysical profile 8 out of 8 2. Cervix is long and closed.
[2021-05-30 09:14] VITALS: BP 143/65; PULSE 96
== END 2021-05-30 10:06 | disposition home or self-care (01) ==
LOC: OPOB 08:40 → OBGYN 08:41
PROVIDERS: PCP Internal Medicine; Visit Provider Obstetrics & Gynecology
DX: O24.419 Gestational diabetes mellitus in pregnancy, unspecified control (principal); Z3A.00 Weeks of gestation of pregnancy not specified
CPT/HCPCS: 59025; 76819

== ENCOUNTER 2021-06-08 11:45 | Observation (INO) | payer MEDICAID, SELFPAY ==
[2021-06-08] VITALS (23 sets, daily range): BP systolic 89–153; BP diastolic 57–89; PULSE 93–121; RESP 18; TEMP 36.8; O2SAT 97; BMI 48.5
--- NOTE | 2021-06-08 12:47 | USR_ITS ---
PROCEDURE INFORMATION: Exam: US Biophysical Profile Without Non-Stress Test Exam date and time: 06/08/2021 12:47 PM Age: 35 years old Clinical indication: Other: contractions; TECHNIQUE: Imaging protocol: US biophysical profile without non-stress testing. COMPARISON: US OB BPP w NST [facility] 06/06/2021 2:43 PM FINDINGS: heart rate: Heart rate is 141 bpm. BIOPHYSICAL PROFILE: Breathing: breathing was not visualized during this examination. 0/2 Gross body movements: 2/2 tone: 2/2 Qualitative amniotic fluid: 2/2 Biophysical Profile Score: 6/8 Placenta is posterior. presentation is vertex. TARYN is 17.4 which is within normal limits. US/US OB BPP wo NST [id number] IMPRESSION: Biophysical profile score is 6/8. breathing was not visualized during the examination with a score of 0/2.
[2021-06-08 13:38] LABS: Bilirubin Urine Neg (Negative); Blood Urine Neg (Negative); Glucose Urine UA Norm (Normal); Ketones Urine 2+ (Negative); Leukocyte Esterase Urine Negative (Negative); Nitrate Urine Negative (Negative); Protein Urine Neg (Negative); Urine Appearance SL Hazy (CLEAR); Urine Color Dark Yellow (Yellow); Urobilinogen Urine Norm (Negative); pH Urine 6 (5-7)
[2021-06-08 13:39] LABS: Add Urine Culture? No; Bacteria Urine 1+ /hpf; Calcium Oxalate Crystals Urine 25-40 /hpf; Mucus Urine 1+ /hpf
[2021-06-08 14:05] LABS: Urine Creatinine 187 mg/dL (28-217)
[2021-06-08] MEDS: NIFEdipine 10 mg Capsule 30 MG PO (14:10)
[2021-06-08 14:16] LABS: UPRO/UCREAT Ratio 0.11 mg/mg CR; Urine Protein Random 21 mg/dL
[2021-06-08 14:18] LABS: Basophils % 0.3 %; Eosinophils # 0.1 10^3/uL (0.0-0.8); Eosinophils % 0.4 %; Hematocrit 40.2 % (37.0-47.0); Hemoglobin 12.9 g/dL (11.5-15.3); Lymphocytes # 1.5 10^3/uL (0.8-4.8); Mean Corpuscular HGB Conc 32.1 g/dL (30.0-36.0); Mean Corpuscular Hemoglobin 27.9 pg (28.0-34.0); Mean Platelet Volume 11.6 fL (7.4-10.4); Monocytes # 0.5 10^3/uL (0.2-0.9); Monocytes % 3.9 %; Neutrophils # 10.04 10^3/uL (1.8-7.7); Neutrophils % 82.3 %; Nucleated Red Blood Cells % 0 %; Platelet Count 283 10^3/cmm (130-400); Red Blood Count 4.62 10^6/uL (4.1-5.3); Red Cell Distribution Width 15.2 % (12.1-15.1); White Blood Count 12.2 10^3/uL (4.0-10.0)
[2021-06-08 14:39] LABS: Alanine Aminotransferase 10 U/L (0-33); Albumin Level 3.6 g/dL (3.5-5.2); Alkaline Phosphatase 163 IU/L (35-105); Aspartate Amino Transferase 16 U/L (0-32); Blood Urea Nitrogen 10 mg/dL (6-20); Calcium 9.5 mg/dL (8.5-10.5); Carbon Dioxide 19 mmol/L (22-29); Chloride 104 mmol/L (98-107); Globulin 3.4 g/dL (1.3-4.6); Glomerular Filtration Rate 112.5 mL/min (90-130); Glucose 62 mg/dL (65-115); Osmolality Calculated 283 mOsm/kg (285-295); Sodium 138 mmol/L (136-145); Total Bilirubin 0.4 mg/dL (0.15-1.2); Uric Acid 5.2 mg/dL (2.4-5.7)
--- NOTE | 2021-06-08 18:15 | PC.NURSE ---
Patient reports that within the last three months she has made a plan to harm herself. Patient reports she is in a much better place now and does not currently feel like she wants to harm self. Patient reports when her pain is severe, that is when she wants to make the pain end by taking her own life. Dr. Juarez notified and consult placed to Dr. Tapia.
== END 2021-06-08 17:20 | disposition home or self-care (01) ==
PROVIDERS: Admitting Provider Obstetrics & Gynecology; PCP Internal Medicine; Visit Provider Obstetrics & Gynecology
DX: O26.899 Other specified pregnancy related conditions, unspecified trimester (principal); Z3A.00 Weeks of gestation of pregnancy not specified; R10.9 Unspecified abdominal pain
CPT/HCPCS: 59025; 76819; 80053; 81001; 82570; 84156; 84550; 85025; 99211; G0378; G0379

== ENCOUNTER → 2021-06-12 13:11 | Outpatient (BNVA) | payer MEDICAID, SELFPAY | PROVIDERS: PCP Internal Medicine; Visit Provider Nurse Practitioner | DX: F43.12 Post-traumatic stress disorder, chronic (principal); F41.1 Generalized anxiety disorder; F33.2 Major depressive disorder, recurrent severe without psychotic features | CPT/HCPCS: 99214 ==

== ENCOUNTER 2021-06-13 11:30 | Outpatient (CLI) | payer MEDICAID, SELFPAY ==
[2021-06-13 11:48] VITALS: RESP 18
[2021-06-13 12:04] LABS: Basophils % 0.2 %; Eosinophils # 0.1 10^3/uL (0.0-0.8); Eosinophils % 0.5 %; Hemoglobin 11.6 g/dL (11.5-15.3); Lymphocytes # 1.5 10^3/uL (0.8-4.8); Lymphocytes % 15.4 %; Mean Corpuscular HGB Conc 32.2 g/dL (30.0-36.0); Mean Corpuscular Hemoglobin 28.1 pg (28.0-34.0); Mean Corpuscular Volume 87.2 fl (81-99); Mean Platelet Volume 11.9 fL (7.4-10.4); Monocytes # 0.6 10^3/uL (0.2-0.9); Monocytes % 6.1 %; Neutrophils # 7.65 10^3/uL (1.8-7.7); Nucleated Red Blood Cells % 0 %; Platelet Count 288 10^3/cmm (130-400); Red Blood Count 4.13 10^6/uL (4.1-5.3); Red Cell Distribution Width 14.8 % (12.1-15.1); White Blood Count 9.9 10^3/uL (4.0-10.0)
[2021-06-13 12:10] VITALS: BP 108/68; PULSE 113; TEMP 36.1
[2021-06-13 12:13] VITALS: BMI 48.7
[2021-06-13 12:27] VITALS: BP 109/67; PULSE 83
[2021-06-13 12:29] LABS: Alanine Aminotransferase 14 U/L (0-33); Albumin Level 3.2 g/dL (3.5-5.2); Alkaline Phosphatase 148 IU/L (35-105); Anion Gap 17.9 (5-19); Aspartate Amino Transferase 16 U/L (0-32); Blood Urea Nitrogen 10 mg/dL (6-20); Carbon Dioxide 20 mmol/L (22-29); Chloride 101 mmol/L (98-107); Globulin 3.1 g/dL (1.3-4.6); Glomerular Filtration Rate 112.5 mL/min (90-130); Glucose 122 mg/dL (65-115); Osmolality Calculated 280 mOsm/kg (285-295); Potassium 3.9 mmol/L (3.5-5.1); Sodium 135 mmol/L (136-145); Total Bilirubin 0.5 mg/dL (0.15-1.2); Total Protein 6.3 g/dL (6.6-8.7); Uric Acid 5.7 mg/dL (2.4-5.7)
[2021-06-13 12:42] VITALS: BP 108/66; PULSE 83
[2021-06-13 12:57] VITALS: BP 125/74; PULSE 89
[2021-06-13] MEDS: betamethasone susp 6 mg/mL 5 mL 12 MG IM (13:02)
[2021-06-13 13:07] LABS: Add Urine Microscopic? NO; Charge for UA Resulting for Rev
[2021-06-13 13:12] VITALS: BP 122/78; PULSE 95
[2021-06-13 13:16] LABS: Bilirubin Urine 1+ (Negative); Blood Urine Neg (Negative); Glucose Urine UA Norm (Normal); Ketones Urine 1+ (Negative); Leukocyte Esterase Urine Negative (Negative); Nitrate Urine Negative (Negative); Protein Urine Neg (Negative); Urine Appearance Clear (CLEAR); Urine Color Yellow (Yellow); Urobilinogen Urine Norm (Negative); pH Urine 5 (5-7)
[2021-06-13 13:37] LABS: Urine Creatinine 220 mg/dL (28-217); Urine Protein Random 20 mg/dL
[2021-06-13 13:41] LABS: UPRO/UCREAT Ratio 0.09 mg/mg CR
--- NOTE | 2021-06-13 14:07 | PC.NURSE ---
Patient was just seen by psychiatry, Dr. Tapia on 06/08/21
== END 2021-06-13 14:01 | disposition home or self-care (01) ==
LOC: OPOB 11:32 → OBGYN 12:04
PROVIDERS: PCP Internal Medicine; Visit Provider Obstetrics & Gynecology
DX: O24.419 Gestational diabetes mellitus in pregnancy, unspecified control (principal); Z3A.00 Weeks of gestation of pregnancy not specified; O14.90 Unspecified pre-eclampsia, unspecified trimester
CPT/HCPCS: 59025; 80053; 81000; 81003; 82570; 84156; 84550; 85025; 87081; 99211; J0702

== ENCOUNTER 2021-06-14 15:40 | Outpatient (CLI) | payer MEDICAID, SELFPAY ==
[2021-06-14 15:49] VITALS: BP 141/66; PULSE 126; RESP 16; BMI 48.9
[2021-06-14] MEDS: betamethasone susp 6 mg/mL 5 mL 12 MG IM (15:54)
--- NOTE | 2021-06-14 15:55 | PC.NURSE ---
Patient was just seen by Dr. Tapia on 06/08/21. Patient is not currently suicidal.
== END 2021-06-14 15:53 | disposition home or self-care (01) ==
LOC: OPOB 15:42 → OBGYN 15:43
PROVIDERS: Absent Provider Obstetrics & Gynecology; Family Provider Obstetrics & Gynecology; PCP Internal Medicine; Visit Provider Obstetrics & Gynecology
DX: O26.899 Other specified pregnancy related conditions, unspecified trimester (principal); Z3A.00 Weeks of gestation of pregnancy not specified
CPT/HCPCS: 96372; J0702

== ENCOUNTER → 2021-06-17 09:13 | Outpatient (BNVA) | payer MEDICAID, SELFPAY | PROVIDERS: Family Provider Obstetrics & Gynecology; PCP Internal Medicine; Visit Provider Obstetrics & Gynecology | DX: Z34.80 Encounter for supervision of other normal pregnancy, unspecified trimester (principal) | CPT/HCPCS: 81000 ==

== ENCOUNTER 2021-06-18 14:30 | Inpatient (IN) | payer MEDICAID, SELFPAY ==
[2021-06-18] VITALS (30 sets, daily range): BP systolic 103–144; BP diastolic 53–93; PULSE 76–144; RESP 18; TEMP 36.5; BMI 48.9
[2021-06-18 18:41] LABS: Glucose Point of Care 87 mg/dL (70-110)
[2021-06-18] MEDS: miSOPROStol 100 mcg tablet 25 MCG VAGINAL (18:47)
[2021-06-18 19:47] LABS: Glucose Point of Care 89 mg/dL (70-110)
[2021-06-18 20:02] LABS: SARS Covid-2 Antigen Negative (Negative)
[2021-06-18 20:51] LABS: Glucose Point of Care 94 mg/dL (70-110)
[2021-06-18 21:14] LABS: Basophils % 0.2 %; Eosinophils % 0.3 %; Hematocrit 38.7 % (37.0-47.0); Hemoglobin 12.2 g/dL (11.5-15.3); Lymphocytes # 1.7 10^3/uL (0.8-4.8); Lymphocytes % 16.3 %; Mean Corpuscular HGB Conc 31.5 g/dL (30.0-36.0); Mean Corpuscular Hemoglobin 27.6 pg (28.0-34.0); Mean Corpuscular Volume 87.6 fl (81-99); Mean Platelet Volume 12.9 fL (7.4-10.4); Monocytes # 0.7 10^3/uL (0.2-0.9); Monocytes % 6.9 %; Neutrophils # 7.87 10^3/uL (1.8-7.7); Neutrophils % 75.7 %; Nucleated Red Blood Cells % 0 %; Platelet Count 270 10^3/cmm (130-400); Red Blood Count 4.42 10^6/uL (4.1-5.3); Red Cell Distribution Width 14.5 % (12.1-15.1); White Blood Count 10.4 10^3/uL (4.0-10.0)
[2021-06-18 21:52] LABS: Glucose Point of Care 91 mg/dL (70-110)
[2021-06-19] VITALS (36 sets, daily range): BP systolic 88–143; BP diastolic 51–94; PULSE 62–114; RESP 14–20; TEMP 36.4–36.8; O2SAT 95–96
[2021-06-19] MEDS: sodium chloride 0.9% 1,000 ML 125 ML IV (00:13)
[2021-06-19] MEDS: oxytocin 30 UNIT/500 ML BAG IV (01:53)
[2021-06-19] MEDS: alum-mag-hydroxide-sime 30 mL UDC PO ×3 (01:58→20:38)
[2021-06-19 03:27] LABS: Glucose Point of Care 90 mg/dL (70-110)
--- NOTE | 2021-06-19 06:06 | PM.OPHPUD ---
Labor & Delivery H&P Update Date of Procedure: June 19, 2021 Date H&P Performed: 06/17/21 H&P update information: I have reviewed H&P completed within last 30 days, I have examined patient prior to procedure and Changes to prior documentation as noted here Changes to previous documentation: The patient is being admitted for induction of labor. Cervix is 1/50/-4 She is having irregular contractions. Admission Diagnosis: Related Problem List Diagnoses (1) Polyhydramnios: (2) Rh negative state in antepartum period: (3) Supervision of other high-risk : (4) Elderly multigravida: (5) History of gestational diabetes in prior , currently :
--- NOTE | 2021-06-19 06:10 | PM.DELIVERY ---
Delivery Note: Date of delivery: June 19, 2021 Pre-delivery diagnoses: polyhydramnios, gestational diabetes- poor compliance, rh negative, elderly multigravia, high risk Post-delivery diagnoses: same Procedure: Op report anesthesia: None Delivering Physician: naseem (unattended) Estimated blood loss (mL): 150 Findings: term healthy female Pre-Delivery Course: The patient was admitted for induction at 37 weeks for uncontrolled gestational diabetes. She had gestational diabetes in prior pregnancies and refused to be screened during this . She was treated as a gestational diabetic. She refused to take metformin. She was placed on glyburide and her blood sugars did improve. She initially brought her blood sugars early in and then just stopped. The patient never brought her blood sugars after that and I suspect, was not monitoring them at home. She was not following a diabetic diet, she stopped being compliant with her medications as well. For the health of the baby, she was induced at 37 weeks. She had one dose of cytotec and low dose pitocin was then started as she was tee after the cytotec. She became uncomfortable and requested some pain medication. She was dilated to 6 cm and still about 50% effaced. While the nurse left to get the medication, the patient's water broke and the baby delivered in the bed, unattended. Delivery: The female delivered unattended in the bed. I was notified and came to the hospital. The placenta delivered, just as I arrived in the room. I inspected the perineum. There were some abrasions, but she was intact. The placenta was intact. Estimated blood loss:150 ml. Mother and stable. weight 7lbs 13oz. 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
[2021-06-19] MEDS: docusate sodium 100 mg Capsule PO ×2 (09:20→17:02)
[2021-06-19] MEDS: ibuprofen 800 mg tablet PO ×3 (09:20→20:15)
[2021-06-19] MEDS: prenatal vitamin Capsule 1 CAP PO (09:21)
[2021-06-19 15:42] LABS: Coronavirus Test Green County Not Detected
[2021-06-19 17:58] LABS: Hematocrit 34.1 % (37.0-47.0); Hemoglobin 10.9 g/dL (11.5-15.3); Mean Corpuscular Hemoglobin 27.9 pg (28.0-34.0); Mean Corpuscular Volume 87.2 fl (81-99); Mean Platelet Volume 12.8 fL (7.4-10.4); Platelet Count 235 10^3/cmm (130-400); Red Blood Count 3.91 10^6/uL (4.1-5.3); Red Cell Distribution Width 14.3 % (12.1-15.1); White Blood Count 13.4 10^3/uL (4.0-10.0)
[2021-06-20] MEDS: montelukast sodium 10 mg Tablet PO (00:56)
[2021-06-20 04:00] VITALS: BP 113/65; PULSE 81; RESP 18; TEMP 36.4
[2021-06-20] MEDS: BuSPIRONE 10 mg Tablet PO ×3 (08:27→21:06)
[2021-06-20] MEDS: ibuprofen 800 mg tablet PO ×3 (08:27→21:06)
[2021-06-20] MEDS: cyclobenzaprine 10 mg Tablet 5 MG PO ×2 (08:27→14:34)
[2021-06-20] MEDS: alum-mag-hydroxide-sime 30 mL UDC PO (08:27)
[2021-06-20] MEDS: prenatal vitamin Capsule 1 CAP PO (08:27)
--- NOTE | 2021-06-20 08:28 | P.PN_ITS ---
Vitals/I&O/Wt Last Vital Signs Temp 97.6 F 06/20/21 04:00 Pulse 81 06/20/21 04:00 Resp 18 06/20/21 04:00 BP 113/65 06/20/21 04:00 Pulse Ox 95 06/19/21 23:04 Weight last 48 hrs Weight 285 lb 5.079 oz Weight 285 lb 5.079 oz Physical Exam Narrative: EXAM NARRATIVE: The patient is doing well this morning. She is having some back pain. It sounds like constipation Const: COMMON NORMALS: no acute distress, patient oriented x3, no limitations, alert and well nourished GENERAL APPEARANCE: cooperative, comfortable, well kempt and well developed ORIENTATION/CONSCIOUSNESS: Yes awake, Yes oriented to person, Yes oriented to place and Yes oriented to time Resp: COMMON NORMALS: normal respiratory effort EFFORT & INSPECTION: Yes able to speak in complete sentences GI: COMMON NORMALS: Soft to palpation and non-tender PALPATION: Yes Soft to palpation Extremity: COMMON NORMALS: no clubbing, cyanosis or edema and no calf tenderness Neuro: COMMON NORMALS: patient oriented x3 SENSORIUM/ORIENTATION: Yes alert, Yes oriented to person, Yes oriented to place and Yes oriented to time Psych: APPEARANCE: Yes well kempt Data : 06/19/21 17:30 A&P Assessment and plan (1) state: Status: Acute Attestations Medical Necessity Statement*: The patient is PPD#1. She would like to stay another night. 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
[2021-06-20 08:30] VITALS: BP 120/82; PULSE 85; RESP 16; TEMP 37.2; O2SAT 98
[2021-06-20] MEDS: buPROPion XL (24 HR) 150 mg Tablet PO (11:03)
[2021-06-20 14:36] VITALS: BP 139/85; PULSE 90; RESP 17; TEMP 36.6
[2021-06-20 18:38] VITALS: BP 128/75; PULSE 86; RESP 17; TEMP 36.8; O2SAT 97
[2021-06-20 19:32] LABS: HIV 1 & 2 Antibody Non-Reactive (Non-Reactiv); HIV 1 & 2 Antigen Non-Reactive (Non-Reactiv)
[2021-06-20 22:30] VITALS: BP 118/77; PULSE 84; RESP 20; TEMP 36.7
[2021-06-21 05:17] VITALS: BP 144/78; PULSE 81; RESP 18; TEMP 36.6
--- NOTE | 2021-06-21 08:48 | P.DS_ITS ---
Discharge Providers Date of Admission: 06/18/21 14:30 Date of Discharge: June 21, 2021 Attending Provider at Admission: Donna Alexander MD Attending Provider at Discharge: Donna Alexander MD Primary Care Provider: Xena Horton DO Diagnoses at Discharge Discharge Diagnosis (1) state: Status: Acute Reason for Visit Reason for Visit: CONTRACTIONS Hospital Course Hospital Course The patient was admitted for induction at term for poorly controlled gestational diabetes. She had spontaneous vaginal delivery. She did well and was ready for discharge on day #2 Physical Exam Narrative: EXAM NARRATIVE: The patient has no concerns today Const: COMMON NORMALS: no acute distress, patient oriented x3, no limitations and alert GENERAL APPEARANCE: cooperative, comfortable, well kempt and well developed ORIENTATION/CONSCIOUSNESS: Yes awake, Yes oriented to person, Yes oriented to place and Yes oriented to time Resp: COMMON NORMALS: normal respiratory effort EFFORT & INSPECTION: Yes able to speak in complete sentences GI: COMMON NORMALS: non-tender and no masses INSPECTION: Yes central ob esity Extremity: COMMON NORMALS: no clubbing, cyanosis or edema and no calf tenderness Neuro: COMMON NORMALS: patient oriented x3 SENSORIUM/ORIENTATION: Yes alert, Yes oriented to person, Yes oriented to place and Yes oriented to time Psych: COMMON NORMALS: Normal thought process present, cooperative and speech normal APPEARANCE: Yes grossly normal and Yes well kempt ATTITUDE: Yes calm SPEECH: Yes normal speech THOUGHT PROCESS: Normal thought process present Discharge Data Data Completed and Pending: Labs from last 24 hours 06/20/21 06/18/21 18:20 16:40 HIV 1&2 Ab & HIV 1 Ag Non-reactive HIV 1&2 Antibody Non-reactive Blood Type O Negative Rho(D) Type Negative Antibody Screen Positive Antibody Identific ation Anti-D Vitals: Last Vital Signs Temp 97.9 F 06/21/21 05:17 Pulse 81 06/21/21 05:17 Resp 18 06/21/21 05:17 BP 144/78 06/21/21 05:17 Pulse Ox 97 06/20/21 18:38 Discharge Plan Discharge Patient Disposition: Home Condition: Stable Prescriptions: Continued omeprazole 20 mg capsule,delayed release(DR/EC) 20 mg PO DAILY 30 Days Qty: 30 RF: 10 cetirizine [Zyrtec] 10 mg tablet 10 mg PO DAILY Qty: 30 RF: 2 albuterol sulfate 2.5 mg/0.5 mL solution for nebulization 2.5 mg INHALATION ONCE Qty: 1 RF: 0 prenat.vits,maya,ijh-[id number]-czgaq Tablet 1 tab PO DAILY Qty: 30 RF: 6 cyclobenzaprine 5 mg tablet 5 mg PO TID PRN (Reason: muscle spasm) Qty: 90 RF: 2 glyburide 5 mg tablet 5 mg PO .hs Qty: 30 RF: 6 albuterol sulfate [ProAir HFA] 90 mcg/actuation HFA aerosol inhaler 2 puff INHALATION Q6H PRN (Reason: Shortness Of Breath Or Wheezing) RF: 0 fluticasone propionate [Allergy Relief (fluticasone)] 50 mcg/actuation spray,suspension 2 spray INTRANASAL BID RF: 0 (DME) lancing device with lancets [[employer] Lanc Device] Kit See Rx Instructions .ROUTE .MEDSUPPLY Qty: 1 RF: 0 ondansetron HCl [Zofran] 4 mg tablet 4 mg PO Q8H PRN (Reason: Nausea) RF: 0 hydroxyzine HCl 25 mg tablet 25 mg PO QID PRN (Reason: anxiety) Qty: 120 RF: 1 bupropion HCl [Wellbutrin XL] 150 mg tablet extended release 24 hr 150 mg PO QAM Qty: 30 RF: 1 buspirone 10 mg tablet 10 mg PO TID Qty: 90 RF: 1 Flovent HFA 220 mcg/actuation HFA aerosol inhaler 2 puff INHALATION BID Qty: 12 RF: 1 montelukast 10 mg tablet 10 mg PO .at bedtime 30 Days Qty: 30 RF: 1 glyburide 1.25 mg tablet 1.25 mg PO BID Qty: 60 RF: 6 (DME) Adient HealthTouch Ultra Blue Test Strip Strip See Rx Instructions .Route Qty: 120 RF: 2 albuterol sulfate 2.5 mg/0.5 mL Solution For Nebulization 2.5 mg inhalation ONCE RF: 0 acetaminophen 325 mg tablet 650 mg PO Q4H PRN (Reason: fever or pain) Qty: 60 RF: 0 Discharge Orders: Discharge Order (Routine); Ordered 06/21/21 Ordered By: Donna Alexander Referrals: Donna Alexander MD [Family Provider] - 07/01/21 11:00 am (*2week follow up 07/01/21 at 11:00am* *6week follow up 08/02/21 at 10:00am* ) Patient Instructions: OB Discharge Report, OB Food/Drug Interaction Guide, OB Care at Home, Opioid Safety, OB Home Care, OB Vaginal Deliveries - [facility] Discharge Attestations Time Spent in Discharge Care*: less than 30 min Status at Discharge: Cognitive status at discharge: cognitively intact , Behavioral status at discharge: cooperative , Quality Metrics Clinical Quality Measures During this hospital stay, did patient experience: None Coding Level of Care Code Acute Chg FW DC note Diagnoses state Z39.2
[2021-06-21 10:45] VITALS: BP 137/86; PULSE 105; RESP 17; TEMP 36.8; O2SAT 96
== END 2021-06-21 11:05 | disposition home or self-care (01) | DRG 806 ==
LOC: OPOB 15:12 → OBGYN 15:13
PROVIDERS: Absent Provider Obstetrics & Gynecology; Admitting Provider Obstetrics & Gynecology; Family Provider Obstetrics & Gynecology; PCP Internal Medicine; Visit Provider Obstetrics & Gynecology
DX: O24.425 Gestational diabetes mellitus in childbirth, controlled by oral hypoglycemic drugs (principal); F33.9 Major depressive disorder, recurrent, unspecified; Z37.0 Single live birth; Z3A.37 37 weeks gestation of pregnancy; O99.344 Other mental disorders complicating childbirth; F41.1 Generalized anxiety disorder; O40.3XX0 Polyhydramnios, third trimester, not applicable or unspecified; O69.81X0 Labor and delivery complicated by cord around neck, without compression, not applicable or unspecified; O26.893 Other specified pregnancy related conditions, third trimester; Z67.41 Type O blood, Rh negative; Z91.14 Patient's other noncompliance with medication regimen
CPT/HCPCS: 36415; 36416; 36430; 59025; 59409; 80500; 82962; 85025; 85027; 85460; 86850; 86870; 86900; 87426; 87635; 87806; 90384; 98960; 99211; J7030

== ENCOUNTER 2021-06-22 11:12 | Emergency (ER) | payer MEDICAID, SELFPAY ==
[2021-06-22 11:35] VITALS: BP 130/66; PULSE 70; RESP 22; TEMP 36.8; O2SAT 97; BMI 46.8
--- NOTE | 2021-06-22 11:53 | ED_ITS ---
Documented by User: DEYA Montgomery 06/23/21 07:15 HPI - Female Genitourinary General: Chief complaint: Urogenital-Female Stated complaint: Pain in lower back Time Seen by Provider: 06/22/21 11:17 History of Present Illness: HPI Narrative: Patient is a 35-year-old female comes to the ED with hemorrhoids. Patient has a history of hemorrhoids. Patient just had a baby 2 days ago where she had a vaginal delivery. Baby is currently at NICU in [place] due to respiratory issues. Mother said she is currently having rectal pain due to her hemorrhoids. It hurts for her to sit down. Pt tried sitz bath yesterday. Associated symptoms: Deny abdominal pain, headache(s) or nausea Review of Systems Const: Denies: fever(s), chills or fatigue Eyes: Denies: change in vision or eye discomfort ENMT: Denies: throat pain, odynophagia, nasal discharge or nasal congestion Card: Denies: chest pain, palpitations, edema, swelling of feet/ankles, dyspnea on exertion or orthopnea Resp: Denies: dyspnea, productive cough or non-productive cough GI: Reports: rectal pain (Hemorrhoids) and rectal swelling (Hemorrhoids); Denies: abdominal pain, nausea, vomiting, diarrhea, constipation or hematochezia : Denies: flank pain, dysuria or hematuria Musc: Denies: neck pain, back pain or extremity swelling Skin/Breast: Denies: rash or new lesions Neuro: Denies: headache(s), numbness in extremities or weakness in extremities PFS ED PFSH: Medical History Asthma Blood type O- Fibromyalgia Generalized anxiety disorder Major depressive disorder, recurrent severe without psychotic features Migraine without aura No pertinent past medical history neghx: htn,dm,thyroid,dvt/pe PCP: [facility] Obesity Post-traumatic stress disorder, chronic Psychiatric care Ventral hernia Surgical History History of abdominoplasty (2012) Pannus removal, karen peña @ [facility] History of bilateral breast reduction surgery (2007) History of cholecystectomy History of hernia repair (~08/2020) Family History Mother Hypertension Diabetes Graves disease Grandmother Stroke Maternal Diabetes Paternal Father Hypercholesterolemia Grandfather Cancer Maternal Grandfather: Mesothelioma Grandfather Colon cancer Paternal---dx age unknown Denies family history of Ovarian cancer Heart disease Breast cancer Uterine cancer Social History Smoking and tobacco status: never smoked Additional social history: Well-balanced diet No substance abuse. Physical Exam Const: COMMON NORMALS: no acute distress, patient oriented x3 and alert GENERAL APPEARANCE: cooperative; not comfortable (uncomfotable due to hemmorhoid pain) HENMT: COMMON NORMALS: normocephalic HEAD & SCALP: normocephalic MOUTH: Normal oral and palatal mucosa present THROAT: posterior oropharynx normal and uvula midline Neck/C-Spine: COMMON NORMALS: supple GENERAL: Yes normal visual inspection Resp: COMMON NORMALS: normal respiratory effort, No retractions, No use of accessory muscles and clear to auscultation bilaterally AUSCULTATION: clear to auscultation bilaterally Cardio: COMMON NORMALS: regular rate, regular rhythm, S1 normal heart sound present, S2 normal heart sound present, No gallops present (Cardio), No clicks present (Cardio), No murmurs present (Cardio) and Peripheral pulses 2+ throughout RATE: regular rate RHYTHM: regular rhythm HEART SOUNDS: S1 normal heart sound present and S2 normal heart sound present PERIPHERAL PULSES: Peripheral pulses 2+ throughout GI: COMMON NORMALS: Normal to inspection, nondistended, normoactive bowel sounds present, Soft to palpation, non-tender and no masses PALPATION: Yes Soft to palpation RECTAL EXAM: External hemorrhoid(s) present (Three non thrombosed hemorrhoids visualized.) : COMMON NORMALS: Yes no CVA tenderness BLADDER/KIDNEY EXAM: Yes no CVA tenderness Back/Pelvis: COMMON NORMALS: no CVA tenderness Extremity: COMMON NORMALS: normal to inspection Neuro: COMMON NORMALS: patient oriented x3 and moves all extremities SENSORIUM/ORIENTATION: Yes alert Skin: GENERAL SKIN EXAM: dry skin Course Vital Signs: Vital signs: Vital Signs Temperature 97.4 F L 06/22/21 12:36 Pulse Rate 81 06/22/21 12:36 Respiratory Rate 20 H 06/22/21 12:36 Blood Pressure 136/79 06/22/21 12:36 Pulse Oximetry 98 06/22/21 12:36 MDM - Female MDM Narrative: Medical decision making narrative: Patient is a 35-year-old female comes to the ED with hemorrhoids. She is approximately 3 large external hemorrhoids that do not appear thrombosed. Dr. Garcia came into examine hemorrhoids as well and he agreed. vitals are stable. Patient was discharged home with some Anusol cream and hydrocodone for pain. She is told to follow-up with her [facility] ATTENDANT/PCP in 5 to 7 days for reevaluation. Return to ED precautions given. Patient understood and agreed with plan. Discharge Plan Discharge Patient Disposition: Home Clinical Impression: Hemorrhoids Qualifiers: Hemorrhoid type: unspecified Qualified Code(s): K64.9 - Unspecified hemorrhoids Condition: Stable Prescriptions: New Anusol-HC 2.5 % cream with perineal applicator 1 applic NE BID PRN (Reason: hemorrhoids) Qty: 30 RF: 0 Stool Softener (docusate maya) 240 mg capsule 240 mg PO DAILY PRN (Reason: constipation) Qty: 20 RF: 0 Miralax 17 gram/dose powder 17 g PO DAILY PRN (Reason: constipation) Qty: 119 RF: 0 No Action omeprazole 20 mg capsule,delayed release(DR/EC) 20 mg PO DAILY 30 Days Qty: 30 RF: 10 cetirizine [Zyrtec] 10 mg tablet 10 mg PO DAILY Qty: 30 RF: 2 albuterol sulfate 2.5 mg/0.5 mL solution for nebulization 2.5 mg INHALATION ONCE Qty: 1 RF: 0 prenat.vits,maya,ykm-tfat-megyq Tablet 1 tab PO DAILY Qty: 30 RF: 6 cyclobenzaprine 5 mg tablet 5 mg PO TID PRN (Reason: muscle spasm) Qty: 90 RF: 2 glyburide 5 mg tablet 5 mg PO .hs Qty: 30 RF: 6 albuterol sulfate [ProAir HFA] 90 mcg/actuation HFA aerosol inhaler 2 puff INHALATION Q6H PRN (Reason: Shortness Of Breath Or Wheezing) RF: 0 fluticasone propionate [Allergy Relief (fluticasone)] 50 mcg/actuation spray,suspension 2 spray INTRANASAL BID RF: 0 (DME) lancing device with lancets [TouchMail Lanc Device] Kit See Rx Instructions .ROUTE .MEDSUPPLY Qty: 1 RF: 0 ondansetron HCl [Zofran] 4 mg tablet 4 mg PO Q8H PRN (Reason: Nausea) RF: 0 hydroxyzine HCl 25 mg tablet 25 mg PO QID PRN (Reason: anxiety) Qty: 120 RF: 1 bupropion HCl [Wellbutrin XL] 150 mg tablet extended release 24 hr 150 mg PO QAM Qty: 30 RF: 1 buspirone 10 mg tablet 10 mg PO TID Qty: 90 RF: 1 Flovent HFA 220 mcg/actuation HFA aerosol inhaler 2 puff INHALATION BID Qty: 12 RF: 1 montelukast 10 mg tablet 10 mg PO .at bedtime 30 Days Qty: 30 RF: 1 glyburide 1.25 mg tablet 1.25 mg PO BID Qty: 60 RF: 6 (DME) OneTouch Ultra Blue Test Strip Strip See Rx Instructions .Route Qty: 120 RF: 2 albuterol sulfate 2.5 mg/0.5 mL Solution For Nebulization 2.5 mg inhalation ONCE RF: 0 acetaminophen 325 mg tablet 650 mg PO Q4H PRN (Reason: fever or pain) Qty: 60 RF: 0 Discharge Orders: Discharge ED (Routine); Ordered 06/22/21 Ordered By: Chacho Salinas Referrals: Xena Horton DO [Primary Care Provider] - Discharge Diet: Regular Discharge Activity: Increase activity as tolerated Patient Instructions: Hydrocortisone (Into the rectum) (Anusol-HC, Procto- Jose,..., Hemorrhoids (ED), Sitz Bath (DC), Opioid Safety Activity Restrictions/Additional Instructions: Follow-up with medical provider as directed in 5-7 days for reevaluation. take medications as prescribed. Return to the ER or your medical provider if condition worsens. Please read and understand discharge instructions. Thank you for choosing [facility] for your healthcare needs today. Please realize this is an emergency room and that we are providing you with a medical screening exam and this may not be complete and all inclusive of all the testing and or work up that you may need to determine your ailment or severity of your illness. It is very important that you follow up as instructed or that you return to the Emergency Department should you have concerns or if your condition changes or worsens in any way. Coding Level of Care Code ED Quality Assurance Intern for Chg Fwd Exam Comprehensive Documented by User: Darell Garcia MD 06/25/21 12:02 HPI - Female Genitourinary General: Chief complaint: Urogenital-Female Stated complaint: Pain in lower back Time Seen by Provider: 06/22/21 11:17 PFSH ED PFSH: Medical History Asthma Blood type O- Fibromyalgia Generalized anxiety disorder Major depressive disorder, recurrent severe without psychotic features Migraine without aura No pertinent past medical history neghx: htn,dm,thyroid,dvt/pe PCP: [facility] Obesity Post-traumatic stress disorder, chronic Psychiatric care Ventral hernia Surgical History History of abdominoplasty (2012) Pannus removal, tummy tuck @ [facility] History of bilateral breast reduction surgery (2007) History of cholecystectomy History of hernia repair (~08/2020) Family History Mother Hypertension Diabetes Graves disease Grandmother Stroke Maternal Diabetes Paternal Father Hypercholesterolemia Grandfather Cancer Maternal Grandfather: Mesothelioma Grandfather Colon cancer Paternal---dx age unknown Denies family history of Ovarian cancer Heart disease Breast cancer Uterine cancer Social History Smoking and tobacco status: never smoked Additional social history: Well-balanced diet No substance abuse. Course Vital Signs: Vital signs: Vital Signs Temperature 97.4 F L 06/22/21 12:36 Pulse Rate 81 06/22/21 12:36 Respiratory Rate 20 H 06/22/21 12:36 Blood Pressure 136/79 06/22/21 12:36 Pulse Oximetry 98 06/22/21 12:36 MDM - Female MDM Narrative: Medical decision making narrative: Patient seen and discussed with DEYA Montgomery. No evidence of thrombosed hemorrhoids though large external hemorrhoids are present. Patient otherwise well-appearing. I reviewed the documentation and agree. Darell Garcia MD Emergency Medicine Discharge Plan Discharge Patient Disposition: Home Clinical Impression: Hemorrhoids Qualifiers: Hemorrhoid type: unspecified Qualified Code(s): K64.9 - Unspecified hemorrhoids Condition: Stable Prescriptions: New Anusol-HC 2.5 % cream with perineal applicator 1 applic NE BID PRN (Reason: hemorrhoids) Qty: 30 RF: 0 Stool Softener (docusate maya) 240 mg capsule 240 mg PO DAILY PRN (Reason: constipation) Qty: 20 RF: 0 Miralax 17 gram/dose powder 17 g PO DAILY PRN (Reason: constipation) Qty: 119 RF: 0 No Action omeprazole 20 mg capsule,delayed release(DR/EC) 20 mg PO DAILY 30 Days Qty: 30 RF: 10 cetirizine [Zyrtec] 10 mg tablet 10 mg PO DAILY Qty: 30 RF: 2 albuterol sulfate 2.5 mg/0.5 mL solution for nebulization 2.5 mg INHALATION ONCE Qty: 1 RF: 0 prenat.vits,maya,xvi-zonn-lrxee Tablet 1 tab PO DAILY Qty: 30 RF: 6 cyclobenzaprine 5 mg tablet 5 mg PO TID PRN (Reason: muscle spasm) Qty: 90 RF: 2 glyburide 5 mg tablet 5 mg PO .hs Qty: 30 RF: 6 albuterol sulfate [ProAir HFA] 90 mcg/actuation HFA aerosol inhaler 2 puff INHALATION Q6H PRN (Reason: Shortness Of Breath Or Wheezing) RF: 0 fluticasone propionate [Allergy Relief (fluticasone)] 50 mcg/actuation spray,suspension 2 spray INTRANASAL BID RF: 0 (DME) lancing device with lancets [Auth0Touch Delica Lanc Device] Kit See Rx Instructions .ROUTE .MEDSUPPLY Qty: 1 RF: 0 ondansetron HCl [Zofran] 4 mg tablet 4 mg PO Q8H PRN (Reason: Nausea) RF: 0 hydroxyzine HCl 25 mg tablet 25 mg PO QID PRN (Reason: anxiety) Qty: 120 RF: 1 bupropion HCl [Wellbutrin XL] 150 mg tablet extended release 24 hr 150 mg PO QAM Qty: 30 RF: 1 buspirone 10 mg tablet 10 mg PO TID Qty: 90 RF: 1 Flovent HFA 220 mcg/actuation HFA aerosol inhaler 2 puff INHALATION BID Qty: 12 RF: 1 montelukast 10 mg tablet 10 mg PO .at bedtime 30 Days Qty: 30 RF: 1 glyburide 1.25 mg tablet 1.25 mg PO BID Qty: 60 RF: 6 (DME) OneTouch Ultra Blue Test Strip Strip See Rx Instructions .Route Qty: 120 RF: 2 albuterol sulfate 2.5 mg/0.5 mL Solution For Nebulization 2.5 mg inhalation ONCE RF: 0 acetaminophen 325 mg tablet 650 mg PO Q4H PRN (Reason: fever or pain) Qty: 60 RF: 0 Discharge Orders: Discharge ED (Routine); Ordered 06/22/21 Ordered By: Chacho Salinas Referrals: Xena Horton, DO [Primary Care Provider] - Discharge Diet: Regular Discharge Activity: Increase activity as tolerated Patient Instructions: Hydrocortisone (Into the rectum) (Anusol-HC, Procto- Jose,..., Hemorrhoids (ED), Sitz Bath (DC), Opioid Safety Activity Restrictions/Additional Instructions: Follow-up with medical provider as directed in 5-7 days for reevaluation. take medications as prescribed. Return to the ER or your medical provider if condition worsens. Please read and understand discharge instructions. Thank you for choosing [facility] for your healthcare needs today. Please realize this is an emergency room and that we are providing you with a medical screening exam and this may not be complete and all inclusive of all the testing and or work up that you may need to determine your ailment or severity of your illness. It is very important that you follow up as instructed or that you return to the Emergency Department should you have concerns or if your condition changes or worsens in any way. Coding Level of Care Code ED Quality Assurance Intern for Jess Gamboa Exam Comprehensive
[2021-06-22] MEDS: HYDROcodone-acetaminophen 5-325 mg Tablet 1 TAB PO (12:06)
[2021-06-22 12:36] VITALS: BP 136/79; PULSE 81; RESP 20; TEMP 36.3; O2SAT 98
== END 2021-06-22 12:38 | disposition home or self-care (01) ==
PROVIDERS: Emergency Provider Physician Assistant; PCP Internal Medicine
DX: O87.2 Hemorrhoids in the puerperium (principal)
CPT/HCPCS: 99282

== ENCOUNTER 2021-07-17 10:33 | Outpatient (CLI) | payer MEDICAID, SELFPAY ==
--- NOTE | 2021-07-17 10:37 | XR_ITS ---
WS: [id number] Exam: XR lumbar spine f/e only [id number] Date/Time of Exam: 07/17/2021 10:37 AM Reason For Exam: VERTEBROGENIC LOW BACK PAIN No fracture or dislocation. Disc spaces are well preserved. No flexion or extension instability. Exag gerated lumbar lordosis noted. XR/XR lumbar spine f/e only [id number] IMPRESSION: 1. No flexion or extension instability. No fracture identified. 2. Increased lumbar lordosis
== END 2021-07-17 10:34 | disposition home or self-care (01) ==
LOC: RAD 10:34
PROVIDERS: PCP Nurse Practitioner Family; Visit Provider Nurse Practitioner
DX: M54.50 Low back pain, unspecified (principal)
CPT/HCPCS: 72120

== ENCOUNTER → 2021-07-18 10:35 | Outpatient (BNVA) | payer MEDICAID, SELFPAY | PROVIDERS: PCP Internal Medicine; Visit Provider Nurse Practitioner | DX: F43.12 Post-traumatic stress disorder, chronic (principal); F41.1 Generalized anxiety disorder; F33.2 Major depressive disorder, recurrent severe without psychotic features | CPT/HCPCS: 99215 ==

== ENCOUNTER → 2021-08-13 10:27 | Outpatient (BNVA) | payer MEDICAID, SELFPAY | PROVIDERS: PCP Internal Medicine; Visit Provider Nurse Practitioner | DX: F43.12 Post-traumatic stress disorder, chronic (principal); F41.1 Generalized anxiety disorder; F33.2 Major depressive disorder, recurrent severe without psychotic features | CPT/HCPCS: 99214 ==

== ENCOUNTER → 2021-09-24 09:33 | Outpatient (BNVA) | payer MEDICAID, SELFPAY | PROVIDERS: PCP Internal Medicine; Visit Provider Nurse Practitioner | DX: F43.12 Post-traumatic stress disorder, chronic (principal); F41.1 Generalized anxiety disorder; F33.2 Major depressive disorder, recurrent severe without psychotic features | CPT/HCPCS: 99214 ==

== ENCOUNTER 2021-12-27 | Emergency (ER) | payer MEDICAID, SELFPAY ==
[2021-12-27 00:29] VITALS: BP 129/81; PULSE 106; RESP 17; TEMP 36.8; O2SAT 97; BMI 45.8
--- NOTE | 2021-12-27 02:03 | W.ED.GENADLT ---
HPI - General Adult General: Chief complaint: General Medical Stated complaint: SWOLLEN TONSILS Time Seen by Provider: 12/27/21 00:25 History of Present Illness: 36-year-old female comes in tonight with complaints of worsening sore throat. Patient was been treated for pharyngitis since last Thursday. Patient right now is taking Bactrim and Augmentin for her pharyngitis. Patient reports that she was feeling better up until tonight and it was more difficult for her to swallow and more discomfort. Patient appears nontoxic. Patient appears in mild pain. Associated symptoms: Deny chest pain, dyspnea or rash Review of Systems General: Reports: 10 or more systems reviewed and unremarkable except in HPI and below Const: Denies: fever(s) ENMT: Reports: throat pain Card: Denies: chest pain Resp: Denies: dyspnea Musc: Denies: neck pain Skin/Breast: Denies: rash PFSH ED PFSH: Medical History Asthma Blood type O- Fibromyalgia Generalized anxiety disorder Major depressive disorder, recurrent severe without psychotic features Migraine without aura No pertinent past medical history neghx: htn,dm,thyroid,dvt/pe PCP: [facility] Obesity Post-traumatic stress disorder, chronic Psychiatric care Ventral hernia Surgical History History of abdominoplasty (2012) Pannus removal, tummy mariana @ [facility] History of bilateral breast reduction surgery (2007) History of cholecystectomy History of hernia repair (~08/2020) Family History Mother Hypertension Diabetes Graves disease Grandmother Stroke Maternal Diabetes Paternal Father Hypercholesterolemia Grandfather Cancer Maternal Grandfather: Mesothelioma Grandfather Colon cancer Paternal---dx age unknown Denies family history of Ovarian cancer Heart disease Breast cancer Uterine cancer Social History Smoking and tobacco status: never smoked Additional social history: Well-balanced diet No substance abuse. Physical Exam Const: COMMON NORMALS: alert HENMT: COMMON NORMALS: normocephalic, TM's normal bilaterally and Normal external nose present HEAD & SCALP: normocephalic NOSE: Normal external nose present TYMPANIC MEMBRANE: TM's normal bilaterally MOUTH: Normal oral and palatal mucosa present THROAT: posterior oropharynx abnormal cobblestoning and erythema Neck/C-Spine: COMMON NORMALS: no lymphadenopathy and no meningeal signs Resp: COMMON NORMALS: normal respiratory effort and clear to auscultation bilaterally AUSCULTATION: clear to auscultation bilaterally Cardio: COMMON NORMALS: regular rate and regular rhythm RATE: regular rate RHYTHM: regular rhythm Extremity: COMMON NORMALS: normal to inspection and no pedal edema Neuro: SENSORIUM/ORIENTATION: Yes alert MENINGEAL SIGNS: Yes no meningeal signs Skin: COMMON NORMALS: no rashes or lesions noted GENERAL SKIN EXAM: no rashes or lesions noted Course Vital Signs: Vital signs: Vital Signs Temperature 97.4 F L 12/27/21 02:11 Pulse Rate 100 12/27/21 02:11 Respiratory Rate 18 12/27/21 02:11 Blood Pressure 145/83 12/27/21 02:11 Pulse Oximetry 97 12/27/21 02:11 MDM - General Adult Medical Decision Making Patient comes in today with sore throat. Patient was treated on Thursday for pharyngitis with amoxicillin. Patient return 2 days later and antibiotics was changed to amoxicillin and Bactrim due to some swelling around the eyes. Patient comes in tonight reporting some improvement in pain but then it seems to be worse tonight. On exam patient has erythema to the posterior pharynx with cobblestoning. There is some nasal drainage also noted. Differential diagnosis includes but not limited to postnasal drip, viral pharyngitis, allergic rhinitis. Believe patient probably has a viral pharyngitis with also some postnasal drip. We will treat with dexamethasone 10 mg IM in the emergency department and give some lidocaine viscous to use to help with pain to throat. Patient be continued on prednisone 20 mg twice a day for the next 5 days. Patient was encouraged to complete antibiotic as prescribed and follow-up with primary care for further instruction. Discharge Plan Discharge Patient Disposition: Home Condition: Stable Prescriptions: New Lidocaine Viscous 2 % solution 10 ml mucous membrane Q3H PRN (Reason: oral pain) Qty: 100 0RF prednisone 20 mg tablet 20 mg PO BID 5 Days Qty: 10 0RF No Action omeprazole 20 mg capsule,delayed release(DR/EC) 20 mg PO DAILY 30 Days Qty: 30 10RF cetirizine [Zyrtec] 10 mg tablet 10 mg PO DAILY Qty: 30 2RF albuterol sulfate 2.5 mg/0.5 mL solution for nebulization 2.5 mg INHALATION ONCE Qty: 1 0RF prenat.vits,maya,jde-jrjn-ejlxq Tablet 1 tab PO DAILY Qty: 30 6RF cyclobenzaprine 5 mg tablet 5 mg PO TID PRN (Reason: muscle spasm) Qty: 90 2RF buspirone 10 mg tablet 10 mg PO TID Qty: 90 1RF hydroxyzine HCl 25 mg tablet 25 mg PO QID PRN (Reason: anxiety) Qty: 120 1RF albuterol sulfate [ProAir HFA] 90 mcg/actuation HFA aerosol inhaler 2 puff INHALATION Q6H PRN (Reason: Shortness Of Breath Or Wheezing) 0RF fluticasone propionate [Allergy Relief (fluticasone)] 50 mcg/actuation spray,suspension 2 spray INTRANASAL BID 0RF (DME) lancing device with lancets [SurePeak Lanc Device] Kit See Rx Instructions .ROUTE .MEDSUPPLY Qty: 1 0RF Rx Instructions: As directed Flovent HFA 220 mcg/actuation HFA aerosol inhaler 2 puff INHALATION BID Qty: 12 1RF Rx Instructions: In Cailin Friend absence's montelukast 10 mg tablet 10 mg PO .at bedtime 30 Days Qty: 30 1RF Rx Instructions: needs a new provider for refills (DME) OneTouch Ultra Blue Test Strip Strip See Rx Instructions .Route Qty: 120 2RF Rx Instructions: As directed albuterol sulfate 2.5 mg/0.5 mL Solution For Nebulization 2.5 mg inhalation ONCE 0RF acetaminophen 325 mg tablet 650 mg PO Q4H PRN (Reason: fever or pain) Qty: 60 0RF Anusol-HC 2.5 % cream with perineal applicator 1 applic [place] BID PRN (Reason: hemorrhoids) Qty: 30 0RF Discharge Orders: Discharge ED (Routine); Ordered 12/27/21 Ordered By: Linwood Freeman Referrals: Xena Horton, DO [Primary Care Provider] - Discharge Diet: Usual diet Discharge Activity: Increase activity as tolerated Patient Instructions: Pharyngitis (ED), Opioid Safety Activity Restrictions/Additional Instructions: Continue antibiotic. Use acetaminophen and ibuprofen for pain and discomfort. Take steroid prednisone 20 mg daily along with antibiotic for the next 5 days. Drink plenty of fluids with medications. Follow-up with primary care in 3 to 5 days for recheck. Return to ER for new concerns. Use Cepastat lozenges or Chloraseptic spray to help with sore throat. You can also use viscous lidocaine 5 to 10 mL swish and swallow every 3 hours as needed for sore throat. Coding Level of Care Code ED Embedded Engineer for Jess Gamboa
[2021-12-27 02:11] VITALS: BP 145/83; PULSE 100; RESP 18; TEMP 36.3; O2SAT 97
[2021-12-27] MEDS: lidocaine 2% viscous 15 mL UDC 10 ML MUCOUS MEM (02:20)
[2021-12-27] MEDS: dexamethasone 10 mg/mL INJ IM (02:20)
[2021-12-27 02:29] LABS: Rapid Strep A Test Negative (Negative)
[2021-12-27 02:37] VITALS: BP 145/83; PULSE 100; RESP 18; O2SAT 97
== END 2021-12-27 02:26 | disposition home or self-care (01) ==
PROVIDERS: Emergency Medicine; Emergency Provider Nurse Practitioner Family; PCP Internal Medicine
DX: J02.9 Acute pharyngitis, unspecified (principal); R09.82 Postnasal drip
CPT/HCPCS: 87081; 87880; 96372; 99283; J1100

== ENCOUNTER 2022-01-08 11:27 | Outpatient (CLI) | payer MEDICAID, SELFPAY ==
--- NOTE | 2022-01-08 11:44 | XR_ITS ---
WS: [id number] Exam: XR soft tissue neck [id number] Date/Time of Exam: 01/08/2022 11:46 AM Reason For Exam: THROAT IRRITATION Comparison 09/15/2018. Prevertebral soft tissues are not widened or displaced. The airway is patent. Bony elements of the C- spine appear normal. XR/XR soft tissue neck [id number] IMPRESSION: 1. Normal soft tissues of the neck.
== END 2022-01-08 11:28 | disposition home or self-care (01) ==
PROVIDERS: PCP Nurse Practitioner Family; Visit Provider Nurse Practitioner Family
DX: J39.2 Other diseases of pharynx (principal)
CPT/HCPCS: 70360; 81000

== ENCOUNTER 2022-02-21 13:35 | Outpatient (CLI) | payer MEDICAID, SELFPAY ==
--- NOTE | 2022-02-21 13:44 | XRR_ITS ---
PROCEDURE INFORMATION: Exam: XR Left Ankle Exam date and time: 02/21/2022 2:15 PM Age: 36 years old Clinical indication: Pain; Ankle; Left; Additional info: Ankle/foot pain TECHNIQUE: Imaging protocol: XR Left ankle. Views: 3 or more views. COMPARISON: CR Foot 3 views, LEFT* [id number] 06/08/2019 5:09 PM FINDINGS: Bones/joints: Calcified heel spur. Soft tissues: Medial ankle soft tissue swelling. XR/XR ankle LT min 3V* [id number] IMPRESSION: 1. Negative for fracture or dislocation. 2. Calcified heel spur. 3. Medial ankle soft tissue swelling.
== END 2022-02-21 13:36 | disposition home or self-care (01) ==
LOC: RAD 13:38
PROVIDERS: PCP Nurse Practitioner Family; Visit Provider Nurse Practitioner Family
DX: M79.672 Pain in left foot (principal); M77.32 Calcaneal spur, left foot
CPT/HCPCS: 73610

== ENCOUNTER 2022-04-15 20:00 | Outpatient (CLI) | payer MEDICAID, SELFPAY | END 2022-04-15 20:01 | disposition home or self-care (01) | LOC: SLEEP 04-16 02:44 | PROVIDERS: PCP Nurse Practitioner Family; Visit Provider Anesthesiology Pain Medicine | DX: G47.33 Obstructive sleep apnea (adult) (pediatric) (principal) | CPT/HCPCS: 95810 ==

== ENCOUNTER 2022-05-29 12:35 | Outpatient (CLI) | payer MEDICAID, SELFPAY ==
--- NOTE | 2022-05-29 12:49 | XR_ITS ---
WS: [id number] Thoracic spine, 3 views, 05/29/2022 Clinical Data: PAIN IN THORACIC SPINE Comparison: None. Findings: No compression fractures are seen. The disc heights are normal. There is a slight dextroscoliosis. The paravertebral regions are normal. There are clips in the right upper quadrant from a cholecystectomy. XR/XR thoracic spine 3V* [id number] Impression: Minimal dextroscoliosis.
--- NOTE | 2022-05-29 12:49 | XR_ITS ---
WS: [id number] Lateral views of cervical spine in the flexion, extension and neutral positions. 05/29/2022 Clinical Data: CERVICALGIA Comparison: AP and lateral soft tissue views of the neck, 01/08/2022. Findings: The disc heights are normal. There are no compression fractures. No prevertebral soft tissue swelling is seen. On flexion and extension there is no limitation of motion or subluxation. XR/XR cervical spine fl/ex [id number] Impression: Negative lateral views of the cervical spine with flexion and extension.
== END 2022-05-29 12:36 | disposition home or self-care (01) ==
LOC: RAD 12:37
PROVIDERS: PCP Nurse Practitioner Family; Visit Provider Anesthesiology Pain Medicine
DX: M54.2 Cervicalgia (principal); M54.6 Pain in thoracic spine
CPT/HCPCS: 72040; 72072

== ENCOUNTER 2022-06-05 11:28 | Emergency (ER) | payer MEDICAID, SELFPAY ==
[2022-06-05 11:33] VITALS: BP 177/132; PULSE 89; RESP 18; TEMP 36.7; O2SAT 98; BMI 46.3
--- NOTE | 2022-06-05 11:46 | W.ED.PSYCHS ---
HPI - Psych General: Chief Complaint: Psychiatric Symptoms Stated Complaint: anxiety, weakness Time Seen by Provider: 06/05/22 11:32 PFSH ED PFSH: Medical History Asthma Blood type O- Fibromyalgia Generalized anxiety disorder Major depressive disorder, recurrent severe without psychotic features Migraine without aura No pertinent past medical history neghx: htn,dm,thyroid,dvt/pe PCP: [facility] Obesity Post-traumatic stress disorder, chronic Psychiatric care Ventral hernia Surgical History History of abdominoplasty (2012) Pannus removal, tummy tuck @ [facility] History of bilateral breast reduction surgery (2007) History of cholecystectomy History of hernia repair (~08/2020) Family History Mother Hypertension Diabetes Graves disease Grandmother Stroke Maternal Diabetes Paternal Father Hypercholesterolemia Grandfather Cancer Maternal Grandfather: Mesothelioma Grandfather Colon cancer Paternal---dx age unknown Denies family history of Ovarian cancer Heart disease Breast cancer Uterine cancer Social History Smoking and tobacco status: never smoked Additional social history: Well-balanced diet No substance abuse. Course Vital Signs: Vital signs: Vital Signs Temperature 98.0 F 06/05/22 11:33 Pulse Rate 89 06/05/22 11:33 Respiratory Rate 18 06/05/22 11:33 Blood Pressure 177/132 06/05/22 11:33 Pulse Oximetry 98 06/05/22 11:33 Oxygen Delivery Or thod 06/05/22 11:33 Discharge Plan Discharge Condition: Stable Prescriptions: No Action omeprazole 20 mg capsule,delayed release(DR/EC) 20 mg PO DAILY 30 Days Qty: 30 10RF cetirizine [Zyrtec] 10 mg tablet 10 mg PO DAILY Qty: 30 2RF albuterol sulfate 2.5 mg/0.5 mL solution for nebulization 2.5 mg INHALATION ONCE Qty: 1 0RF prenat.vits,maya,mgb-vicm-girld Tablet 1 tab PO DAILY Qty: 30 6RF cyclobenzaprine 5 mg tablet 5 mg PO TID PRN (Reason: muscle spasm) Qty: 90 2RF buspirone 10 mg tablet 10 mg PO TID Qty: 90 1RF hydroxyzine HCl 25 mg tablet 25 mg PO QID PRN (Reason: anxiety) Qty: 120 1RF albuterol sulfate [ProAir HFA] 90 mcg/actuation HFA aerosol inhaler 2 puff INHALATION Q6H PRN (Reason: Shortness Of Breath Or Wheezing) fluticasone propionate [Allergy Relief (fluticasone)] 50 mcg/actuation spray,suspension 2 spray INTRANASAL BID (DME) lancing device with lancets [[employer] Lanc Device] Kit See Rx Instructions .ROUTE .MEDSUPPLY Qty: 1 0RF Rx Instructions: As directed Flovent HFA 220 mcg/actuation HFA aerosol inhaler 2 puff INHALATION BID Qty: 12 1RF Rx Instructions: In Cailin perdomo's montelukast 10 mg tablet 10 mg PO .at bedtime 30 Days Qty: 30 1RF Rx Instructions: needs a new provider for refills (DME) [employer] Ultra Blue Test Strip Strip See Rx Instructions .Route Qty: 120 2RF Rx Instructions: As directed albuterol sulfate 2.5 mg/0.5 mL Solution For Nebulization 2.5 mg inhalation ONCE 0RF acetaminophen 325 mg tablet 650 mg PO Q4H PRN (Reason: fever or pain) Qty: 60 0RF Anusol-HC 2.5 % cream with perineal applicator 1 applic [place] BID PRN (Reason: hemorrhoids) Qty: 30 0RF Lidocaine Viscous 2 % solution 10 ml mucous membrane Q3H PRN (Reason: oral pain) Qty: 100 0RF Referrals: Shane Umaña NP [Primary Care Provider] - Coding Level of Care Code ED Forest Fire Warden for Chg Cooper
--- NOTE | 2022-06-05 11:52 | ED_ITS ---
HPI - General Adult General: Chief complaint: Psychiatric Symptoms Stated complaint: anxiety, weakness Time Seen by Provider: 06/05/22 11:32 History of Present Illness: Patient is a 36-year-old female who presents the emergency room with concerns of anxiety and generalized weakness. Earlier today, patient reports that she felt very anxious and called EMS because she had numbness and weakness all over her body. Patient told me that she was extremely distraught because she received the verdict from the court house that she can no longer have custody of her children. Patient is distraught that her ex partner cannot take care of the child. Patient denies any suicidal ideation or homicidal ideation. In the ER, patient is tearful and crying. Patient is moving all extremities. Patient denies nausea/vomiting, fever/chill, chest pain, shortness of breath, abdominal pain, dysuria/hematuria/polyuria, diarrhea/melena/hematochezia. Onset: 1 hr ago Duration:ongoing Location:home Severity:moderate Associated symptoms: Deny chest pain, dyspnea, nausea, rash, palpitations or vomiting Review of Systems Const: Reports: other (+generalized weakness); Denies: fever(s) or chills Eyes: Denies: change in vision ENMT: Denies: mouth pain Card: Denies: chest pain or palpitations Resp: Denies: dyspnea or non-productive cough GI: Denies: abdominal pain, nausea, vomiting or diarrhea : Denies: dysuria Musc: Denies: extremity pain Skin/Breast: Denies: rash or new lesions Neuro: Denies: weakness in extremities Psych: Reports: depression and other (+anxiety) Jorge Alberto/Lymph: Denies: easy bruising PFSH ED PFSH: Medical History Asthma Blood type O- Fibromyalgia Generalized anxiety disorder Major depressive disorder, recurrent severe without psychotic features Migraine without aura No pertinent past medical history neghx: htn,dm,thyroid,dvt/pe PCP: [facility] Obesity Post-traumatic stress disorder, chronic Psychiatric care Ventral hernia Surgical History History of abdominoplasty (2012) Pannus removal, tummy mariana @ [facility] History of bilateral breast reduction surgery (2007) History of cholecystectomy History of hernia repair (~08/2020) Family History Mother Hypertension Diabetes Graves disease Grandmother Stroke Maternal Diabetes Paternal Father Hypercholesterolemia Grandfather Cancer Maternal Grandfather: Mesothelioma Grandfather Colon cancer Paternal---dx age unknown Denies family history of Ovarian cancer Heart disease Breast cancer Uterine cancer Social History Smoking and tobacco status: never smoked Additional social history: Well-balanced diet No substance abuse. Physical Exam Const: COMMON NORMALS: alert HENMT: COMMON NORMALS: atraumatic HEAD & SCALP: atraumatic MOUTH: moist mucous membranes not abnormal Eye: COMMON NORMALS: EOMs intact bilaterally and conjunctivae normal CONJUNCTIVA: Yes conjunctivae normal Neck/C-Spine: COMMON NORMALS: full ROM and supple Resp: COMMON NORMALS: normal respiratory effort and clear to auscultation bilaterally AUSCULTATION: clear to auscultation bilaterally Cardio: COMMON NORMALS: regular rate RATE: regular rate GI: COMMON NORMALS: Soft to palpation and non-tender PALPATION: Yes Soft to palpation OTHER: No focal TTP. NO guarding rebound, guarding, rigidity. No CVA tenderness to percussion. Neg Cardenas/Neg McBurney's point tenderness, no suprabupic tenderness to palpation. Extremity: COMMON NORMALS: full ROM Neuro: SENSORIUM/ORIENTATION: Yes alert MOTOR EXAM: No Abnormal motor strength present and Other motor observations present (no focal motor deficits) Psych: COMMON NORMALS: speech normal SPEECH: Yes normal speech MOOD & AFFECT: Yes depressed mood, Yes tearful and Yes fearful Course Vital Signs: Vital signs: Vital Signs Temperature 98.0 F 06/05/22 11:33 Pulse Rate 89 06/05/22 11:33 Respiratory Rate 18 06/05/22 11:33 Blood Pressure 177/132 06/05/22 11:33 Pulse Oximetry 98 06/05/22 11:33 Oxygen Delivery Me thod 06/05/22 11:33 MDM - General Adult Medical Decision Making Patient is a 36-year-old female who presents the emergency room with concerns of anxiety and generalized weakness. On physical exam, patient is moving all extremities are intact. CN2-12 through grossly intact. Patient is tearful and fearful at the present time. Patient received 2 mg Ativan for feeling symptomatic improved. Patient has been able to ambulate without difficulty. Discussed case with Dr. Tapia who agrees that patient is stable for discharge. I have given patient follow up with our shoe parts caser to be seen by our outpatient by [facility] for management of anxiety and new depression. Patient aware of a call from our shoe parts caser to schedule for appointment(s) and verbalizes understanding of the importance of following up. Rx ativan PRN anxiety Disposition: Discharge. Patient counseled regarding diagnostic impression, treatment plan. Patient given ED strict return precautions to return for continuation, worsening, or development of new symptoms. Instructed to f/u w/ PCP regarding symptoms today. Patient verbalized understanding. Discharge Plan Discharge Patient Disposition: Home Clinical Impression: Anxiety Condition: Stable Prescriptions: New Ativan 1 mg tablet 1 mg PO BID PRN (Reason: anxiety) Qty: 6 0RF No Action cetirizine [Zyrtec] 10 mg tablet 10 mg PO DAILY Qty: 30 2RF cyclobenzaprine 5 mg tablet 5 mg PO TID PRN (Reason: muscle spasm) Qty: 90 2RF buspirone 10 mg tablet 10 mg PO TID Qty: 90 1RF hydroxyzine HCl 25 mg tablet 25 mg PO QID PRN (Reason: anxiety) Qty: 120 1RF albuterol sulfate [ProAir HFA] 90 mcg/actuation HFA aerosol inhaler 2 puff INHALATION Q6H PRN (Reason: Shortness Of Breath Or Wheezing) fluticasone propionate [Allergy Relief (fluticasone)] 50 mcg/actuation spray,suspension 2 spray INTRANASAL BID (DME) lancing device with lancets [[employer] Lanc Device] Kit See Rx Instructions .ROUTE .MEDSUPPLY Qty: 1 0RF Rx Instructions: As directed Flovent HFA 220 mcg/actuation HFA aerosol inhaler 2 puff INHALATION BID Qty: 12 1RF Rx Instructions: In Cailingarrett Friend absence's (DME) OneTouch Ultra Blue Test Strip Strip See Rx Instructions .Route Qty: 120 2RF Rx Instructions: As directed acetaminophen 325 mg tablet 650 mg PO Q4H PRN (Reason: fever or pain) Qty: 60 0RF Vitamin C 500 mg Tablet 250 mg PO DAILY Advil 200 mg Tablet 200 mg PO Q6H PRN (Reason: Pain) vitamin B complex Tablet 1 tab PO DAILY Vitamin D3 25 mcg (1,000 unit) Tablet 25 mcg PO DAILY omeprazole 20 mg capsule,delayed release(DR/EC) 20 mg PO BEDTIME montelukast 10 mg tablet 10 mg PO BEDTIME Rx Instructions: needs a new provider for refills tramadol 50 mg Tablet 50 mg PO Q6H PRN (Reason: Pain) Narcan 4 mg/actuation spray,non-aerosol See Rx Instructions .ROUTE .COMPLEX Rx Instructions: intranasally DIRECTED Discharge Orders: Discharge ED (Routine); Ordered 06/05/22 Ordered By: Daniel Wright Referrals: Shane Umaña NP [Primary Care Provider] - Discharge Diet: Advance as tolerated Discharge Activity: Increase activity as tolerated Patient Instructions: Anxiety (ED) Activity Restrictions/Additional Instructions: Please come back to the emergency room if you need help, have any hallucinations, or you have any depression or have thoughts about hurting yourself or other people. Our shoe parts caser will have you follow-up with [facility] in the next few days. You would be expected to have a phone call with our shoe parts caser who will put you on the schedule. You can expect a call from us in the next 2-3 days. If you don't hear from us, call us back in the emergency room at [phone]. Coding Level of Care Code ED Disc Pad Grinding Machine Feeder for Jess Gamboa Exam Comprehensive
[2022-06-05] MEDS: LORazepam 2 mg Tablet PO (12:11)
--- NOTE | 2022-06-05 14:01 | PC.NURSE ---
around approximately 1330 pt was sitting in bed eating from lunch tray. updated on plan of discharge.
--- NOTE | 2022-06-06 10:34 | DCPLANNER ---
Addendum entered by Tomasa Lerma 06/13/22 08:18: manager crisis received the following message from Jennifer at [facility] regarding follow up: Clinic mailed patient paperwork to fill out and return to get services started. Original Note: manager crisis had message to refer patient to [facility] for services. manager crisis sent patients information to Jennifer Harris at [facility] for a referral to get services started at clinic. Patients information will be reviewed, clinic will call patient with appointment information.
== END 2022-06-05 14:03 | disposition home or self-care (01) ==
PROVIDERS: Emergency Provider Emergency Medicine; PCP Nurse Practitioner Family
DX: F41.9 Anxiety disorder, unspecified (principal); F32.A Depression, unspecified; J45.909 Unspecified asthma, uncomplicated; E66.9 Obesity, unspecified; Z68.42 Body mass index [BMI] 45.0-49.9, adult; Z79.51 Long term (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 inhaled steroids
CPT/HCPCS: 99283

== ENCOUNTER 2022-06-09 20:00 | Outpatient (CLI) | payer MEDICAID, SELFPAY | END 2022-06-09 20:01 | disposition home or self-care (01) | LOC: SLEEP 06-10 07:46 | PROVIDERS: PCP Nurse Practitioner Family; Visit Provider Anesthesiology Pain Medicine | DX: G47.33 Obstructive sleep apnea (adult) (pediatric) (principal) | CPT/HCPCS: 95811 ==

== ENCOUNTER 2022-06-10 18:48 | Emergency (ER) | payer MEDICAID, SELFPAY ==
[2022-06-10 19:29] VITALS: TEMP 36.9
[2022-06-10 19:49] LABS: Basophils % 0.4 %; Eosinophils # 0.1 10^3/uL (0.0-0.8); Eosinophils % 0.7 %; Hematocrit 41.8 % (37.0-47.0); Hemoglobin 13.4 g/dL (11.5-15.3); Lymphocytes # 1.7 10^3/uL (0.8-4.8); Lymphocytes % 15.8 %; Mean Corpuscular HGB Conc 32.1 g/dL (30.0-36.0); Mean Corpuscular Volume 84.3 fl (81-99); Mean Platelet Volume 11.4 fL (7.4-10.4); Monocytes # 0.5 10^3/uL (0.2-0.9); Monocytes % 4.7 %; Neutrophils # 8.54 10^3/uL (1.8-7.7); Neutrophils % 77.9 %; Nucleated Red Blood Cells % 0 %; Platelet Count 274 10^3/cmm (130-400); Red Blood Count 4.96 10^6/uL (4.1-5.3); Red Cell Distribution Width 14.2 % (12.1-15.1)
[2022-06-10 20:06] LABS: HCG, Serum Qual Negative (Negative)
[2022-06-10 20:07] LABS: Alanine Aminotransferase 21 U/L (0-33); Alkaline Phosphatase 125 U/L (35-105); Anion Gap 16.1 (5-19); Aspartate Amino Transferase 20 U/L (0-32); Blood Urea Nitrogen 12 mg/dL (6-20); Calcium 9.4 mg/dL (8.5-10.5); Carbon Dioxide 25 mmol/L (22-29); Chloride 106 mmol/L (98-107); Globulin 3.2 g/dL (1.3-4.6); Glomerular Filtration Rate 70.1 mL/min (90-130); Glucose 130 mg/dL (65-115); Osmolality Calculated 298 mOsm/kg (285-295); Potassium 4.1 mmol/L (3.5-5.1); Sodium 143 mmol/L (136-145); Total Bilirubin 0.6 mg/dL (0.15-1.2); Total Protein 7.2 g/dL (6.6-8.7)
[2022-06-10 22:06] VITALS: BP 119/80; PULSE 69; RESP 20; TEMP 36.7; O2SAT 97
--- NOTE | 2022-06-10 22:13 | XRR_ITS ---
PROCEDURE INFORMATION: Exam: XR Chest Exam date and time: 06/10/2022 10:22 PM Age: 36 years old Clinical indication: Shortness of breath; Additional info: Heat exposure/sob TECHNIQUE: Imaging protocol: Radiologic exam of the chest. Views: 1 view. COMPARISON: CR XR chest 2V* [id number] 08/02/2019 11:19 PM FINDINGS: Lungs: No consolidation. Pleural spaces: No pleural effusion. No pneumothorax. Heart/Mediastinum: No cardiomegaly. Bones/joints: Unremarkable. XR/XR chest 1V portable [id number] IMPRESSION: 1. No acute abnormality demonstrated. 2. There is no interval change from the prior examination.
--- NOTE | 2022-06-10 22:15 | W.ED.GENADLT ---
HPI - General Adult General: Chief complaint: General Medical Stated complaint: heat exposure Time Seen by Provider: 06/10/22 22:07 History of Present Illness: Patient is a 36-year-old female comes to the ED after heat exposure. Patient states that today she had to do a lot of walking out in the heat and started feeling weak, dizzy and had a little bit of blurry vision. She then sat down and rested for a little bit and then came here to the ED for evaluation. She denies any loss of consciousness or falling and hitting her head. She has a history of asthma and states that she is having some shortness of breath as well. Denies any fevers, chest pain, nausea/vomiting. Patient is able to keep p.o. fluids down out in the lobby. She is also complaining of acute on chronic lower back pain after walking today. Associated symptoms: Reports dyspnea; Deny chest pain, headache(s), nausea, rash, palpitations or vomiting Review of Systems Const: Reports: fatigue and other (Heat stroke symptoms); Denies: fever(s) or chills Eyes: Denies: change in vision or eye discomfort ENMT: Denies: throat pain, odynophagia, nasal discharge or nasal congestion Card: Denies: chest pain, palpitations, edema, swelling of feet/ankles, dyspnea on exertion or orthopnea Resp: Reports: dyspnea; Denies: productive cough or non-productive cough GI: Denies: abdominal pain, nausea, vomiting, diarrhea, constipation or hematochezia : Denies: flank pain, dysuria or hematuria Musc: Reports: back pain; Denies: neck pain or extremity swelling Skin/Breast: Denies: rash or new lesions Neuro: Denies: headache(s), numbness in extremities or weakness in extremities PFS ED PFSH: Medical History Asthma Blood type O- Fibromyalgia Generalized anxiety disorder Major depressive disorder, recurrent severe without psychotic features Migraine without aura No pertinent past medical history neghx: htn,dm,thyroid,dvt/pe PCP: [facility] Obesity Post-traumatic stress disorder, chronic Psychiatric care Ventral hernia Surgical History History of abdominoplasty (2012) Pannus removal, karen peña @ [facility] History of bilateral breast reduction surgery (2007) History of cholecystectomy History of hernia repair (~08/2020) Family History Mother Hypertension Diabetes Graves disease Grandmother Stroke Maternal Diabetes Paternal Father Hypercholesterolemia Grandfather Cancer Maternal Grandfather: Mesothelioma Grandfather Colon cancer Paternal---dx age unknown Denies family history of Ovarian cancer Heart disease Breast cancer Uterine cancer Social History Smoking and tobacco status: never smoked Additional social history: Well-balanced diet No substance abuse. Physical Exam Const: COMMON NORMALS: no acute distress, patient oriented x3 and alert GENERAL APPEARANCE: cooperative and comfortable NUTRITIONAL APPEARANCE: obese HENMT: COMMON NORMALS: normocephalic HEAD & SCALP: normocephalic MOUTH: Normal oral and palatal mucosa present THROAT: posterior oropharynx normal and uvula midline Neck/C-Spine: COMMON NORMALS: supple GENERAL: Yes normal visual inspection Resp: COMMON NORMALS: normal respiratory effort, No retractions, No use of accessory muscles and clear to auscultation bilaterally AUSCULTATION: clear to auscultation bilaterally OTHER: Patient appears in no acute respiratory distress. Cardio: COMMON NORMALS: regular rate, regular rhythm, S1 normal heart sound present, S2 normal heart sound present, No gallops present (Cardio), No clicks present (Cardio), No murmurs present (Cardio) and Peripheral pulses 2+ throughout RATE: regular rate RHYTHM: regular rhythm HEART SOUNDS: S1 normal heart sound present and S2 normal heart sound present PERIPHERAL PULSES: Peripheral pulses 2+ throughout GI: COMMON NORMALS: Normal to inspection, nondistended, normoactive bowel sounds present, Soft to palpation, non-tender and no masses PALPATION: Yes Soft to palpation : COMMON NORMALS: Yes no CVA tenderness BLADDER/KIDNEY EXAM: Yes no CVA tenderness Back/Pelvis: COMMON NORMALS: no CVA tenderness Extremity: COMMON NORMALS: normal to inspection Neuro: COMMON NORMALS: patient oriented x3 SENSORIUM/ORIENTATION: Yes alert GAIT: Yes Normal gait present Skin: GENERAL SKIN EXAM: dry skin Course Vital Signs: Vital signs: Vital Signs Temperature 98.0 F 06/10/22 22:06 Pulse Rate 68 06/10/22 22:50 Respiratory Rate 16 06/10/22 22:50 Blood Pressure 119/80 06/10/22 22:06 Pulse Oximetry 99 06/10/22 22:50 Oxygen Delivery Me thod 06/10/22 22:50 MDM - General Adult Medical Decision Making Patient is a 36-year-old female comes to the ED after heat exposure. Patient states that today she had to do a lot of walking out in the heat and started feeling weak, dizzy and had a little bit of blurry vision. She then sat down and rested for a little bit and then came here to the ED for evaluation. She denies any loss of consciousness or falling and hitting her head. She has a history of asthma and states that she is having some shortness of breath as well. Vitals are stable patient's O2 saturation is 97 to 99% on room air. She appears nontoxic and in no acute distress or pain. She also endorses having chronic lower back pain and its flaring up currently. Lungs are clear to auscultation bilaterally patient showing no signs of any labored breathing or respiratory distress. Rest of exam is benign. Labs are unremarkable. Chest x-ray shows no acute findings. Patient is able to tolerate p.o. fluids here in the ED. She was given a DuoNeb breathing treatment says her symptoms shortness of breath have improved. Patient was given a dose of tramadol and a muscle relaxer to help with her back pain. Patient was stable for discharge home and diagnosed with heat exhaustion and chronic lower back pain. She was told to follow-up with her PCP in the next week for reevaluation. Return to ED precautions given. Patient understood and agreed with plan. Lab Data I reviewed the patient's lab results. : 06/10/22 19:41 06/10/22 19:41 Radiology Impressions Chest X-Ray 06/10/22 22:13 IMPRESSION: 1. No acute abnormality demonstrated. 2. There is no interval change from the prior examination. Laboratory Results WBC 11.0 10^3/uL (4.0-10.0) H 06/10/22 19:41 RBC 4.96 10^6/uL (4.1-5.3) 06/10/22 19:41 Hgb 13.4 g/dL (11.5-15.3) 06/10/22 19:41 Hct 41.8 % (37.0-47.0) 06/10/22 19:41 MCV 84.3 fl (81-99) 06/10/22 19:41 MCH 27.0 pg (28.0-34.0) L 06/10/22 19:41 MCHC 32.1 g/dL (30.0-36.0) 06/10/22 19:41 RDW 14.2 % (12.1-15.1) 06/10/22 19:41 Plt Count 274 10^3/cmm (130-400) 06/10/22 19:41 MPV 11.4 fL (7.4-10.4) H 06/10/22 19:41 Neut % (Auto) 77.9 % 06/10/22 19:41 Lymph % (Auto) 15.8 % 06/10/22 19:41 [place] % (Auto) 4.7 % 06/10/22 19:41 Eos % (Auto) 0.7 % 06/10/22 19:41 Baso % (Auto) 0.4 % 06/10/22 19:41 Neut # (Auto) 8.54 10^3/uL (1.8-7.7) H 06/10/22 19:41 Lymph # (Auto) 1.7 10^3/uL (0.8-4.8) 06/10/22 19:41 [place] # (Auto) 0.5 10^3/uL (0.2-0.9) 06/10/22 19:41 Eos # (Auto) 0.1 10^3/uL (0.0-0.8) 06/10/22 19:41 Baso # (Auto) 0.0 10^3/uL (0.0-0.1) 06/10/22 19:41 Nucleated RBC % (auto) 0 % 06/10/22 19:41 Nucleated RBCs # 0.0 /100WBC 06/10/22 19:41 Sodium 143 mmol/L (136-145) 06/10/22 19:41 Potassium 4.1 mmol/L (3.5-5.1) 06/10/22 19:41 Chloride 106 mmol/L (98-107) 06/10/22 19:41 Carbon Dioxide 25 mmol/L (22-29) 06/10/22 19:41 Anion Gap 16.1 (5-19) 06/10/22 19:41 BUN 12 mg/dL (6-20) 06/10/22 19:41 Creatinine 0.9 mg/dL (0.5-0.9) 06/10/22 19:41 GFR Calculation 70.1 mL/min (90-130) L 06/10/22 19:41 Glucose 130 mg/dL (65-115) H 06/10/22 19:41 Calculated Osmolality 298 mOsm/kg (285-295) H 06/10/22 19:41 Calcium 9.4 mg/dL (8.5-10.5) 06/10/22 19:41 Total Bilirubin 0.6 mg/dL (0.15-1.2) 06/10/22 19:41 AST 20 U/L (0-32) 06/10/22 19:41 ALT 21 U/L (0-33) 06/10/22 19:41 Alkaline Phosphatase 125 U/L (35-105) H 06/10/22 19:41 Total Protein 7.2 g/dL (6.6-8.7) 06/10/22 19:41 Albumin 4.0 g/dL (3.5-5.2) 06/10/22 19:41 Globulin 3.2 g/dL (1.3-4.6) 06/10/22 19:41 HCG, Qual Negative (Negative) 06/10/22 19:41 Discharge Plan Discharge Patient Disposition: Home Clinical Impression: Heat exhaustion Qualifiers: Encounter type: initial encounter Qualified Code(s): T67.5XXA - Heat exhaustion, unspecified, initial encounter Chronic lower back pain Qualifiers: Back pain laterality: bilateral Sciatica presence: unspecified whether sciatica present Qualified Code(s): M54.50 - Low back pain, unspecified Condition: Stable Prescriptions: New methocarbamol 750 mg tablet 750 mg PO Q8H PRN (Reason: Back muscle spasms and pain) Qty: 20 0RF No Action cetirizine [Zyrtec] 10 mg tablet 10 mg PO DAILY Qty: 30 2RF cyclobenzaprine 5 mg tablet 5 mg PO TID PRN (Reason: muscle spasm) Qty: 90 2RF buspirone 10 mg tablet 10 mg PO TID Qty: 90 1RF hydroxyzine HCl 25 mg tablet 25 mg PO QID PRN (Reason: anxiety) Qty: 120 1RF albuterol sulfate [ProAir HFA] 90 mcg/actuation HFA aerosol inhaler 2 puff INHALATION Q6H PRN (Reason: Shortness Of Breath Or Wheezing) fluticasone propionate [Allergy Relief (fluticasone)] 50 mcg/actuation spray,suspension 2 spray INTRANASAL BID (DME) lancing device with lancets [[employer] Lanc Device] Kit See Rx Instructions .ROUTE .MEDSUPPLY Qty: 1 0RF Rx Instructions: As directed Flovent HFA 220 mcg/actuation HFA aerosol inhaler 2 puff INHALATION BID Qty: 12 1RF Rx Instructions: In Cailin Friend absence's (DME) OneTouch Ultra Blue Test Strip Strip See Rx Instructions .Route Qty: 120 2RF Rx Instructions: As directed acetaminophen 325 mg tablet 650 mg PO Q4H PRN (Reason: fever or pain) Qty: 60 0RF Vitamin C 500 mg Tablet 250 mg PO DAILY Advil 200 mg Tablet 200 mg PO Q6H PRN (Reason: Pain) vitamin B complex Tablet 1 tab PO DAILY Vitamin D3 25 mcg (1,000 unit) Tablet 25 mcg PO DAILY omeprazole 20 mg capsule,delayed release(DR/EC) 20 mg PO BEDTIME montelukast 10 mg tablet 10 mg PO BEDTIME Rx Instructions: needs a new provider for refills tramadol 50 mg Tablet 50 mg PO Q6H PRN (Reason: Pain) Narcan 4 mg/actuation spray,non-aerosol See Rx Instructions .ROUTE .COMPLEX Rx Instructions: intranasally DIRECTED Ativan 1 mg tablet 1 mg PO BID PRN (Reason: anxiety) Qty: 6 0RF Discharge Orders: Discharge ED (Routine); Ordered 06/10/22 Ordered By: Chacho Salinas Referrals: Shane Umaña NP [Primary Care Provider] - Discharge Diet: Regular Discharge Activity: Increase activity as tolerated Patient Instructions: Heat Exhaustion - Adult Activity Restrictions/Additional Instructions: Follow-up with medical provider as directed. Take medications as prescribed. Return to the ER or your medical provider if condition worsens. Please read and understand discharge instructions. Thank you for choosing [facility] for your healthcare needs today. Please realize this is an emergency room and that we are providing you with a medical screening exam and this may not be complete and all inclusive of all the testing and or work up that you may need to determine your ailment or severity of your illness. It is very important that you follow up as instructed or that you return to the Emergency Department should you have concerns or if your condition changes or worsens in any way. Coding Level of Care Code ED Land Law Examiner for Jess Fwd Exam Comprehensive
[2022-06-10] MEDS: orphenadrine 30 mg/mL Inj 2 mL 60 MG IM (22:29)
[2022-06-10] MEDS: TRAMadol 50 mg Tablet 100 MG PO (22:30)
[2022-06-10] MEDS: ipratropium-albuterol 3 mL Neb INHALATION (22:48)
[2022-06-10 22:50] VITALS: PULSE 68; RESP 16; O2SAT 99
== END 2022-06-10 23:05 | disposition home or self-care (01) ==
PROVIDERS: Emergency Provider Physician Assistant; PCP Nurse Practitioner Family
DX: T67.5XXA Heat exhaustion, unspecified, initial encounter (principal); G89.29 Other chronic pain; M54.50 Low back pain, unspecified; X30.XXXA Exposure to excessive natural heat, initial encounter
CPT/HCPCS: 36415; 71045; 80053; 84703; 85025; 94640; 96372; 99284; J2360

== ENCOUNTER 2022-11-05 11:37 | Emergency (ER) | payer MEDICAID, SELFPAY ==
--- NOTE | 2022-11-05 11:44 | W.ED.BACK ---
HPI - Back Pain/Injury General: Chief Complaint: Back Pain/Injury Stated Complaint: back pain Time Seen by Provider: 11/05/22 11:44 History of Present Illness: Ms. Florez is a 36-year-old lady presenting to the emergency department for mid back pain. She reports being at her baseline health and twisted in bed last night when she had sudden onset of pain. Since that time pain has been persistent. Worse with sitting and standing. Some radiation down the spine. Denies any new neurologic symptoms or red flag symptoms. No other specific changes in health, exacerbating, or alleviating factors identified. Onset (ago): hour(s) Timing: constant Severity: moderate Quality: stabbing and aching Location: lumbar spine and thoracic spine Radiation: other Exacerbating factors: sitting upright Relieving factors: none Context: turning/twisting Associated symptoms: Reports no associated symptoms Treatments prior to arrival: prescription analgesics Review of Systems General: Reports: 10 or more systems reviewed and unremarkable except in HPI and below PFSH ED PFSH: Medical History Asthma Blood type O- Fibromyalgia Generalized anxiety disorder Major depressive disorder, recurrent severe without psychotic features Migraine without aura No pertinent past medical history neghx: htn,dm,thyroid,dvt/pe PCP: [facility] Obesity Post-traumatic stress disorder, chronic Ventral hernia Surgical History History of abdominoplasty (2012) Pannus removal, tummy tuck @ [facility] History of bilateral breast reduction surgery (2007) History of cholecystectomy History of hernia repair (~08/2020) Family History Mother Hypertension Diabetes Graves disease Grandmother Stroke Maternal Diabetes Paternal Father Hypercholesterolemia Grandfather Cancer Maternal Grandfather: Mesothelioma Grandfather Colon cancer Paternal---dx age unknown Denies family history of Ovarian cancer Heart disease Breast cancer Uterine cancer Social History Smoking and tobacco status: never smoked Additional social history: Well-balanced diet No substance abuse. Physical Exam Const: COMMON NORMALS: alert GENERAL APPEARANCE: cooperative and well developed HENMT: COMMON NORMALS: normocephalic and atraumatic HEAD & SCALP: normocephalic and atraumatic Eye: COMMON NORMALS: conjunctivae normal CONJUNCTIVA: Yes conjunctivae normal SCLERA: sclerae normal Neck/C-Spine: COMMON NORMALS: supple GENERAL: Yes trachea midline Resp: COMMON NORMALS: clear to auscultation bilaterally EFFORT & INSPECTION: Yes able to speak in complete sentences AUSCULTATION: clear to auscultation bilaterally Cardio: COMMON NORMALS: regular rate and regular rhythm RATE: regular rate RHYTHM: regular rhythm GI: COMMON NORMALS: Soft to palpation PALPATION: Yes Soft to palpation and No Tenderness to palpation present (GI) Back/Pelvis: OTHER: ttp lumbar-thoracic junction Extremity: GENERAL: Yes normal exam except as noted and No edema Neuro: COMMON NORMALS: moves all extremities SENSORIUM/ORIENTATION: Yes alert and No Orientation impaired Psych: COMMON NORMALS: mental status grossly normal and Normal thought process present THOUGHT PROCESS: Normal thought process present Course Vital Signs: Vital signs: Vital Signs Pulse Rate 92 11/05/22 14:18 Respiratory Rate 18 11/05/22 14:18 Blood Pressure 138/78 11/05/22 14:18 Pulse Oximetry 99 11/05/22 14:18 Oxygen Delivery Me thod 11/05/22 11:47 MDM - Back Pain/Injury Medical Decision Making 36-year-old lady presenting with back pain in the context of twisting. No neurologic deficits or red flag symptoms. Patient is nontoxic in appearance. Given provided clinical history and physical exam there is no indication for laboratory studies at this time. Thoracic and lumbar spine x-rays without acute pathology identified. Patient improved with analgesia and muscle relaxer. Most likely etiology of patient's symptoms is musculoskeletal pain with exacerbation of underlying chronic back pain. The results of ED evaluation were discussed with the patient including prescriptions and/or symptomatic cares (if applicable) including appropriate and responsible use, followup plan, and return precautions. The patient verbalized understanding and felt safe for discharge. Medical Records I reviewed the patient's medical records. Labs I reviewed the patient's lab results. Radiology Impressions Lumbar Spine X-Ray 11/05/22 11:51 IMPRESSION: No acute findings. Thoracic Spine X-Ray 11/05/22 11:51 IMPRESSION: No acute findings. Discharge Plan Discharge Patient Disposition: Home Clinical Impression: Acute exacerbation of chronic low back pain, Muscle strain Condition: Stable Prescriptions: New oxycodone 5 mg tablet 5 mg PO Q4H PRN (Reason: pain) Qty: 10 0RF No Action cetirizine [Zyrtec] 10 mg tablet 10 mg PO DAILY Qty: 30 2RF cyclobenzaprine 5 mg tablet 5 mg PO TID PRN (Reason: muscle spasm) Qty: 90 2RF buspirone 10 mg tablet 10 mg PO TID Qty: 90 1RF hydroxyzine HCl 25 mg tablet 25 mg PO QID PRN (Reason: anxiety) Qty: 120 1RF albuterol sulfate [ProAir HFA] 90 mcg/actuation HFA aerosol inhaler 2 puff INHALATION Q6H PRN (Reason: Shortness Of Breath Or Wheezing) fluticasone propionate [Allergy Relief (fluticasone)] 50 mcg/actuation spray,suspension 2 spray INTRANASAL BID (DME) lancing device with lancets [[employer] e-MediaTouch [employer] Lanc Device] Kit See Rx Instructions .ROUTE .MEDSUPPLY Qty: 1 0RF Rx Instructions: As directed Flovent HFA 220 mcg/actuation HFA aerosol inhaler 2 puff INHALATION BID Qty: 12 1RF Rx Instructions: In Cailin Friend absence's (DME) OneTouch Ultra Blue Test Strip Strip See Rx Instructions .Route Qty: 120 2RF Rx Instructions: As directed ascorbic acid (vitamin C) [Vitamin C] 500 mg Tablet 250 mg PO DAILY ibuprofen [Advil] 200 mg Tablet 200 mg PO Q6H PRN (Reason: Pain) vitamin B complex Tablet 1 tab PO DAILY omeprazole 20 mg capsule,delayed release(DR/EC) 20 mg PO BEDTIME montelukast 10 mg tablet 10 mg PO BEDTIME Rx Instructions: needs a new provider for refills tramadol 50 mg Tablet 50 mg PO Q6H PRN (Reason: Pain) Discharge Orders: Discharge ED (Routine); Ordered 11/05/22 Ordered By: Darell Garcia Referrals: Shane Umaña NP [Primary Care Provider] - Discharge Diet: Usual diet Discharge Activity: Increase activity as tolerated Patient Instructions: Muscle Strain (ED), Back Pain (ED), Opioid Safety Activity Restrictions/Additional Instructions: Thank you for visiting the emergency department. You were seen and evaluated for back pain. The most likely cause of your symptoms is muscle strain. Please continue to follow-up with your primary care provider and pain management. I will prescribe a short course of oxycodone for pain uncontrolled by tramadol. As discussed do not use these at the same time. Watch for side effects. Please return to the emergency department for uncontrolled symptoms, loss of control of bowel or bladder, new numbness or tingling or weakness, or anything else that you are concerned about and feel needs emergency department evaluation. Coding Level of Care Code ED Nurses' Aide for Jess Gamboa
[2022-11-05 11:47] VITALS: BP 127/71; PULSE 75; RESP 18; O2SAT 98; BMI 47.9
--- NOTE | 2022-11-05 11:51 | XRR_ITS ---
PROCEDURE INFORMATION: Exam: XR Thoracic Spine Exam date and time: 11/05/2022 12:14 PM Age: 36 years old Clinical indication: Pain in thoracic spine; Patient HX: Back pain, get worse when standing, started this morning/last night; Additional info: Lower thoracic, mid back pain TECHNIQUE: Imaging protocol: Radiologic exam of the thoracic spine. Views: 3 views. COMPARISON: CR XR thoracic spine 3V* [id number] 05/29/2022 1:08 PM FINDINGS: Bones/joints: Normal. No acute fracture. There is minimal dextrocurvature of the upper thoracic spine. The normal thoracic kyphosis is well maintained, without listhesis. Soft tissues: Unremarkable. XR/XR thoracic spine 2V [id number] IMPRESSION: No acute findings.
--- NOTE | 2022-11-05 11:51 | XRR_ITS ---
PROCEDURE INFORMATION: Exam: XR Lumbosacral Spine Exam date and time: 11/05/2022 12:14 PM Age: 36 years old Clinical indication: Low back pain; Patient HX: Back pain, get worse when standing, started this morning/last night; Additional info: Upper lumbar, mid back pain TECHNIQUE: Imaging protocol: Radiologic exam of the lumbosacral spine. Views: 2 or 3 views. COMPARISON: CR XR lumbar spine f/e only [id number] 07/17/2021 10:59 AM FINDINGS: Bones/joints: Normal. No acute fracture. Normal alignment. Soft tissues: Unremarkable. Organs: Cholecystectomy clips project over the right upper quadrant. XR/XR lumbar spine 2-3V* [id number] IMPRESSION: No acute findings.
[2022-11-05] MEDS: acetaminophen 500 mg Tablet 1000 MG PO (12:14)
[2022-11-05] MEDS: ketorolac 30 mg/mL INJ 15 MG IM (12:15)
[2022-11-05] MEDS: methocarbamol 750 mg Tablet PO (12:15)
[2022-11-05] MEDS: morphine 4 mg/mL SDV 1 mL IM (13:47)
[2022-11-05 14:18] VITALS: BP 138/78; PULSE 92; RESP 18; O2SAT 99
== END 2022-11-05 15:28 | disposition home or self-care (01) ==
PROVIDERS: Emergency Provider Emergency Medicine; PCP Nurse Practitioner Family
DX: S39.012A Strain of muscle, fascia and tendon of lower back, initial encounter (principal); X50.1XXA Overexertion from prolonged static or awkward postures, initial encounter; Y92.003 Bedroom of unspecified non-institutional (private) residence as the place of occurrence of the external cause; G89.29 Other chronic pain
CPT/HCPCS: 72070; 72100; 96372; 99284; J1885; J2270

== ENCOUNTER 2022-12-07 14:18 | Emergency (ER) | payer MEDICAID, SELFPAY ==
[2022-12-07 14:19] VITALS: BP 132/95; PULSE 103; RESP 17; TEMP 36.7; O2SAT 98; BMI 46.3
--- NOTE | 2022-12-07 15:13 | ED_ITS ---
HPI - Abdominal Pain General: Chief Complaint: Abdominal Pain Stated Complaint: ABD PAIN Time Seen by Provider: 12/07/22 15:06 History of Present Illness: Ms. Florez is a 37-year-old lady with history of morbid obesity, fibromyalgia, hernia repair presenting to the emergency department due to abdominal pain. She reports onset of symptoms this morning while getting up. She notes describes tearing moderate to severe pain associated with a bulge in the right upper periumbilical region. Worse with tightening her abdominal muscles. Denies changes in bowel habits. She does have a history of hernia repair and reports that this feels similar. No other specific changes in health, exacerbating, or alleviating factors identified. Onset (ago): hour(s) Location: Periumbilical Severity: moderate Quality: aching and sharp Radiation: none Migration to: no migration Exacerbating factors: movement Relieving factors: nothing Associated Symptoms: Reports no associated symptoms Review of Systems General: Reports: 10 or more systems reviewed and unremarkable except in HPI and below PFSH ED PFSH: Medical History Asthma Blood type O- Fibromyalgia Generalized anxiety disorder Major depressive disorder, recurrent severe without psychotic features Migraine without aura No pertinent past medical history neghx: htn,dm,thyroid,dvt/pe PCP: [facility] Obesity Post-traumatic stress disorder, chronic Ventral hernia Surgical History History of abdominoplasty (2012) Pannus removal, tummy ozzyck @ [facility] History of bilateral breast reduction surgery (2007) History of cholecystectomy History of hernia repair (~08/2020) Family History Mother Hypertension Diabetes Graves disease Grandmother Stroke Maternal Diabetes Paternal Father Hypercholesterolemia Grandfather Cancer Maternal Grandfather: Mesothelioma Grandfather Colon cancer Paternal---dx age unknown Denies family history of Ovarian cancer Heart disease Breast cancer Uterine cancer Social History Smoking and tobacco status: never smoked Additional social history: Well-balanced diet No substance abuse. Physical Exam Const: COMMON NORMALS: alert GENERAL APPEARANCE: cooperative and well developed HENMT: COMMON NORMALS: normocephalic and atraumatic HEAD & SCALP: normocephalic and atraumatic THROAT: posterior oropharynx normal Eye: COMMON NORMALS: conjunctivae normal CONJUNCTIVA: Yes conjunctivae normal SCLERA: sclerae normal Neck/C-Spine: COMMON NORMALS: supple GENERAL: Yes trachea midline Resp: COMMON NORMALS: normal respiratory effort EFFORT & INSPECTION: Yes able to speak in complete sentences Cardio: COMMON NORMALS: regular rate and regular rhythm RATE: regular rate RHYTHM: regular rhythm GI: COMMON NORMALS: Soft to palpation PALPATION: Yes Soft to palpation, Yes Tenderness to palpation present (GI), No Guarding due to palpation present (GI) and No Rigid due to palpation OTHER: Somewhat limited reliability of exam secondary to body habitus, no obvious hernia palpated however patient does have tenderness in right superior periumbilical region. Extremity: GENERAL: Yes normal exam except as noted and No edema Neuro: COMMON NORMALS: moves all extremities SENSORIUM/ORIENTATION: Yes alert and No Orientation impaired Psych: COMMON NORMALS: mental status grossly normal and Normal thought process present THOUGHT PROCESS: Normal thought process present Course Vital Signs: Vital signs: Vital Signs Temperature 98.1 F 12/07/22 14:19 Pulse Rate 103 H 12/07/22 14:19 Respiratory Rate 18 12/07/22 16:40 Blood Pressure 132/95 12/07/22 14:19 Pulse Oximetry 97 12/07/22 16:05 Oxygen Delivery Me thod 12/07/22 16:05 MDM - Abdominal Pain Medical Decision Making 37-year-old lady with complex history presenting with abdominal pain. There is abdominal tenderness without evidence of acute surgical abdomen and the patient is nontoxic in appearance. Body habitus limits reliability of exam. Labs notable for essentially no significant hematologic or metabolic abnormality. No UTI. hCG negative. CT with no clear cause of patient's symptoms, incidental findings discussed with the patient, no evidence of hernia or acute abdominal wall pathology. Patient improved with analgesia. Most likely etiology of patient's symptoms is unspecified abdominal pain. Abnormality noted on CT scan of the wall of the colon is inconsistent with location and patient's symptomatology for colitis. The results of ED evaluation were discussed with the patient including prescriptions and/or symptomatic cares (if applicable) including appropriate and responsible use, followup plan, and return precautions. The patient verbalized understanding and felt safe for discharge. Medical Records I reviewed the patient's medical records. Lab Data I reviewed the patient's lab results. 12/07/22 14:52 12/07/22 14:52 Labs/Radiology: Radiology Impressions Abdomen/Pelvis CT 12/07/22 15:49 IMPRESSION: 1. Mid to distal left colon wall thickening may be due to nondistention, a colitis may also be a consideration depending on the clinical scenario. 2. 12 mm splenic cyst. 3. Small umbilical hernia containing omentum without bowel. 4. Hepatic steatosis. 5. Cholecystectomy. 6. Constipation. Laboratory Results WBC 10.1 10^3/uL (4.0-10.0) H 12/07/22 14:52 RBC 5.18 10^6/uL (4.1-5.3) 12/07/22 14:52 Hgb 13.9 g/dL (11.5-15.3) 12/07/22 14:52 Hct 42.6 % (37.0-47.0) 12/07/22 14:52 MCV 82.2 fl (81-99) 12/07/22 14:52 MCH 26.8 pg (28.0-34.0) L 12/07/22 14:52 MCHC 32.6 g/dL (30.0-36.0) 12/07/22 14:52 RDW 14.6 % (12.1-15.1) 12/07/22 14:52 Plt Count 292 10^3/cmm (130-400) 12/07/22 14:52 MPV 11.8 fL (7.4-10.4) H 12/07/22 14:52 Neut % (Auto) 76.8 % 12/07/22 14:52 Lymph % (Auto) 16.9 % 12/07/22 14:52 [place] % (Auto) 4.7 % 12/07/22 14:52 Eos % (Auto) 0.9 % 12/07/22 14:52 Baso % (Auto) 0.4 % 12/07/22 14:52 Neut # (Auto) 7.77 10^3/uL (1.8-7.7) H 12/07/22 14:52 Lymph # (Auto) 1.7 10^3/uL (0.8-4.8) 12/07/22 14:52 [place] # (Auto) 0.5 10^3/uL (0.2-0.9) 12/07/22 14:52 Eos # (Auto) 0.1 10^3/uL (0.0-0.8) 12/07/22 14:52 Baso # (Auto) 0.0 10^3/uL (0.0-0.1) 12/07/22 14:52 Nucleated RBC % (auto) 0 % 12/07/22 14:52 Nucleated RBCs # 0.0 /100WBC 12/07/22 14:52 Sodium 143 mmol/L (136-145) 12/07/22 14:52 Potassium 4.3 mmol/L (3.5-5.1) 12/07/22 14:52 Chloride 108 mmol/L (98-107) H 12/07/22 14:52 Carbon Dioxide 27 mmol/L (22-29) 12/07/22 14:52 Anion Gap 12.3 (5-19) 12/07/22 14:52 BUN 11 mg/dL (6-20) 12/07/22 14:52 Creatinine 0.8 mg/dL (0.5-0.9) 12/07/22 14:52 GFR Calculation 79.9 mL/min (90-130) L 12/07/22 14:52 Glucose 122 mg/dL (65-115) H 12/07/22 14:52 Calculated Osmolality 297 mOsm/kg (285-295) H 12/07/22 14:52 Calcium 9.2 mg/dL (8.5-10.5) 12/07/22 14:52 Total Bilirubin 0.5 mg/dL (0.15-1.2) 12/07/22 14:52 AST 15 U/L (0-32) 12/07/22 14:52 ALT 15 U/L (0-33) 12/07/22 14:52 Alkaline Phosphatase 103 U/L (35-105) 12/07/22 14:52 Total Protein 7.3 g/dL (6.6-8.7) 12/07/22 14:52 Albumin 4.1 g/dL (3.5-5.2) 12/07/22 14:52 Globulin 3.2 g/dL (1.3-4.6) 12/07/22 14:52 Lipase 20 U/L (13-60) 12/07/22 14:52 HCG, Qual Negative (Negative) 12/07/22 14:52 Urine Color Dark yellow (Yellow) 12/07/22 15:45 Urine Appearance Clear (CLEAR) 12/07/22 15:45 Urine pH 5 (5-7) 12/07/22 15:45 Ur Specific [place] 1.020 (1.005-1.030) 12/07/22 15:45 Urine Protein Neg (Negative) 12/07/22 15:45 Urine Glucose (UA) Norm (Normal) 12/07/22 15:45 Urine Ketones 1+ (Negative) H 12/07/22 15:45 Urine Blood Neg (Negative) 12/07/22 15:45 Urine Nitrate Negative (Negative) 12/07/22 15:45 Urine Bilirubin Neg (Negative) 12/07/22 15:45 Urine Urobilinogen 1 mg/dL (Negative) H 12/07/22 15:45 Ur Leukocyte Esterase Negative (Negative) 12/07/22 15:45 Discharge Plan Discharge Patient Disposition: Home Clinical Impression: Abdominal pain, Periumbilical hernia, Constipation Condition: Stable Prescriptions: New ClearLax 17 gram/dose powder 17 g PO DAILY Qty: 510 0RF No Action cetirizine [Zyrtec] 10 mg tablet 10 mg PO DAILY Qty: 30 2RF cyclobenzaprine 5 mg tablet 5 mg PO TID PRN (Reason: muscle spasm) Qty: 90 2RF buspirone 10 mg tablet 10 mg PO TID Qty: 90 1RF hydroxyzine HCl 25 mg tablet 25 mg PO QID PRN (Reason: anxiety) Qty: 120 1RF albuterol sulfate [ProAir HFA] 90 mcg/actuation HFA aerosol inhaler 2 puff INHALATION Q6H PRN (Reason: Shortness Of Breath Or Wheezing) fluticasone propionate [Allergy Relief (fluticasone)] 50 mcg/actuation spray,suspension 2 spray INTRANASAL BID (DME) lancing device with lancets [[employer] Lanc Device] Kit See Rx Instructions .ROUTE .MEDSUPPLY Qty: 1 0RF Rx Instructions: As directed ketoconazole 2 % shampoo 1 applic topical Q14D Qty: 120 6RF Rx Instructions: Lather into scalp 2-3 times weekly. Allowed to sit on scalp for 5 minutes before rinsing. triamcinolone acetonide 0.1 % ointment 1 applic topical BID Qty: 80 0RF Rx Instructions: Apply to affected area no more than 2 weeks/month. Not for use on face. clobetasol 0.05 % solution 1 applic topical DAILY Qty: 50 3RF Rx Instructions: Apply few drops to itchy areas of scalp as needed. Flovent HFA 220 mcg/actuation HFA aerosol inhaler 2 puff INHALATION BID Qty: 12 1RF Rx Instructions: In Cailin Friend absence's (DME) OneTouch Ultra Blue Test Strip Strip See Rx Instructions .Route Qty: 120 2RF Rx Instructions: As directed ascorbic acid (vitamin C) [Vitamin C] 500 mg Tablet 250 mg PO DAILY ibuprofen [Advil] 200 mg Tablet 200 mg PO Q6H PRN (Reason: Pain) vitamin B complex Tablet 1 tab PO DAILY omeprazole 20 mg capsule,delayed release(DR/EC) 20 mg PO BEDTIME montelukast 10 mg tablet 10 mg PO BEDTIME Rx Instructions: needs a new provider for refills tramadol 50 mg Tablet 50 mg PO Q6H PRN (Reason: Pain) oxycodone 5 mg tablet 5 mg PO Q4H PRN (Reason: pain) Qty: 10 0RF dicyclomine 20 mg tablet 20 mg PO BID Qty: 10 0RF Discharge Orders: Discharge ED (Routine); Ordered 12/07/22 Ordered By: Darell Garcia Referrals: Shane Umaña NP [Primary Care Provider] - Discharge Diet: Usual diet Discharge Activity: Limit activity as instructed Activity Restrictions/Additional Instructions: Thank you for visiting the emergency department. You were seen and evaluated for abdominal pain. The exact cause of your pain is unclear. You do have a per iumbilical hernia however this does not contain bowel and it is unclear if this is a new or old finding. Incidentally you are found to have constipation. I will message case management for follow-up. You may use [id number] medications such as acetaminophen and ibuprofen for pain however please do not exceed the daily recommended dosage as listed on the packaging and please keep in mind that many namebrand medications contain the same active ingredients. Please avoid these medications if previously instructed to do so by another physician due to other underlying medical condition. Return to the emergency department for uncontrolled pain, enlarging painful abdominal bulge or bulge with overlying skin changes, inability to pass flatus or have bowel movements, or anything else that you are concerned about and feel needs emergency department evaluation. Coding Level of Care Code ED Sewing Supervisor for Jess Gamboa
[2022-12-07 15:18] LABS: Basophils % 0.4 %; Eosinophils # 0.1 10^3/uL (0.0-0.8); Eosinophils % 0.9 %; Hematocrit 42.6 % (37.0-47.0); Hemoglobin 13.9 g/dL (11.5-15.3); Lymphocytes # 1.7 10^3/uL (0.8-4.8); Lymphocytes % 16.9 %; Mean Corpuscular HGB Conc 32.6 g/dL (30.0-36.0); Mean Corpuscular Hemoglobin 26.8 pg (28.0-34.0); Mean Corpuscular Volume 82.2 fl (81-99); Mean Platelet Volume 11.8 fL (7.4-10.4); Monocytes # 0.5 10^3/uL (0.2-0.9); Monocytes % 4.7 %; Neutrophils # 7.77 10^3/uL (1.8-7.7); Neutrophils % 76.8 %; Nucleated Red Blood Cells % 0 %; Platelet Count 292 10^3/cmm (130-400); Red Blood Count 5.18 10^6/uL (4.1-5.3); Red Cell Distribution Width 14.6 % (12.1-15.1); White Blood Count 10.1 10^3/uL (4.0-10.0)
[2022-12-07 15:25] LABS: HCG, Serum Qual Negative (Negative)
[2022-12-07 15:32] LABS: Alanine Aminotransferase 15 U/L (0-33); Albumin Level 4.1 g/dL (3.5-5.2); Alkaline Phosphatase 103 U/L (35-105); Anion Gap 12.3 (5-19); Aspartate Amino Transferase 15 U/L (0-32); Blood Urea Nitrogen 11 mg/dL (6-20); Calcium 9.2 mg/dL (8.5-10.5); Carbon Dioxide 27 mmol/L (22-29); Chloride 108 mmol/L (98-107); Globulin 3.2 g/dL (1.3-4.6); Glomerular Filtration Rate 79.9 mL/min (90-130); Glucose 122 mg/dL (65-115); Lipase 20 U/L (13-60); Osmolality Calculated 297 mOsm/kg (285-295); Potassium 4.3 mmol/L (3.5-5.1); Sodium 143 mmol/L (136-145); Total Bilirubin 0.5 mg/dL (0.15-1.2); Total Protein 7.3 g/dL (6.6-8.7)
[2022-12-07 15:49] LABS: Add Urine Microscopic? NO; Charge for UA Resulting for Rev
--- NOTE | 2022-12-07 15:49 | CTR_ITS ---
PROCEDURE INFORMATION: Exam: CT Abdomen And Pelvis With Contrast Exam date and time: 12/07/2022 4:02 PM Age: 37 years old Clinical indication: Abdominal pain; Prior surgery; Surgery type: Abdominoplasty; Cira; Hernia; Additional info: R periumbilical region pain, concern of recurrence of hernia TECHNIQUE: Imaging protocol: Computed tomography of the abdomen and pelvis with contrast. Radiation optimization: All CT scans at this facility use at least one of these dose optimization techniques: automated exposure control; mA and/or kV adjustment per patient size (includes targeted exams where dose is matched to clinical indication); or iterative reconstruction. Contrast material: OMNI 350; Contrast volume: 100 ml; Contrast route: INTRAVENOUS (IV); REPORTING DATA: Count of CT and Cardiac NM exams in prior 12 months: This patient has received 0 known CTs and 0 known cardiac nuclear medicine studies in the 12 months prior to the current study. COMPARISON: CT abdomen pelvis w con* [id number] 09/18/2020 5:15 PM RADIATION DOSE METRICS: Total DLP (mGy-cm): 1181.43 FINDINGS: Liver: Hepatic steatosis. Gallbladder and bile ducts: Cholecystectomy. Pancreas: Normal. No ductal dilation. Spleen: 12 mm splenic cyst. Adrenal glands: Normal. No mass. Kidneys and ureters: Normal. No hydronephrosis. Stomach and bowel: Mid to distal left colon wall thickening may be due to nondistention, a colitis may also be a consideration depending on the clinical scenario. Constipation. Appendix: No evidence of appendicitis. Intraperitoneal space: Unremarkable. No free air. No significant fluid collection. Vasculature: Unremarkable. No abdominal aortic aneurysm. Lymph nodes: Unremarkable. No enlarged lymph nodes. Urinary bladder: Unremarkable as visualized. Reproductive: Unremarkable as visualized. Bones/joints: Unremarkable. No acute fracture. Soft tissues: Small umbilical hernia containing omentum without bowel. CT/CT abdomen pelvis w con* [id number] IMPRESSION: 1. Mid to distal left colon wall thickening may be due to nondistention, a colitis may also be a consideration depending on the clinical scenario. 2. 12 mm splenic cyst. 3. Small umbilical hernia containing omentum without bowel. 4. Hepatic steatosis. 5. Cholecystectomy. 6. Constipation.
[2022-12-07 15:51] LABS: Bilirubin Urine Neg (Negative); Blood Urine Neg (Negative); Glucose Urine UA Norm (Normal); Ketones Urine 1+ (Negative); Leukocyte Esterase Urine Negative (Negative); Nitrate Urine Negative (Negative); Protein Urine Neg (Negative); Urine Appearance Clear (CLEAR); Urine Color Dark Yellow (Yellow); Urobilinogen Urine 1 mg/dL (Negative); pH Urine 5 (5-7)
[2022-12-07] MEDS: iohexol 350 mg/mL 500 mL Btl (per mL) IV (16:03)
[2022-12-07 16:05] VITALS: O2SAT 97
[2022-12-07 16:40] VITALS: RESP 18
[2022-12-07] MEDS: morphine 4 mg/mL SDV 1 mL IVP (16:40)
--- NOTE | 2022-12-10 10:52 | DCPLANNER ---
Addendum entered by Tomasa Lerma 01/09/23 08:14: Patient had a follow up appointment scheduled with general surgery - patient did attend appointment. Addendum entered by Tomasa Lerma 12/12/22 08:29: Patient has a follow up appointment scheduled for Friday, January 06, 2023 at 1:[address] Clemente at general surgery. Clinic will call patient with appointment information. Original Note: manager solution had message to schedule a follow up appointment for patient with general surgery. manager solution sent patients information to the front office staff at general surgery. Patients information will be reviewed, clinic will call patient with appointment information.
== END 2022-12-07 17:16 | disposition home or self-care (01) ==
PROVIDERS: Emergency Medicine; Emergency Provider Emergency Medicine; PCP Nurse Practitioner Family
DX: K42.9 Umbilical hernia without obstruction or gangrene (principal); K59.00 Constipation, unspecified
CPT/HCPCS: 36415; 74177; 80053; 81003; 83690; 84703; 85025; 96374; 99285; J2270; Q9967

== ENCOUNTER 2022-12-14 21:35 | Emergency (ER) | payer MEDICAID, SELFPAY ==
[2022-12-14 21:37] VITALS: BP 134/90; PULSE 95; RESP 20; TEMP 36.7; O2SAT 98
[2022-12-15] MEDS: ibuprofen 200 mg Tablet 400 MG PO (01:06)
[2022-12-15] MEDS: acetaminophen 500 mg Tablet 1000 MG PO (01:06)
[2022-12-15] MEDS: dicyclomine 20 mg Tablet PO (01:06)
[2022-12-15 01:10] LABS: Basophils % 0.3 %; Eosinophils # 0.2 10^3/uL (0.0-0.8); Eosinophils % 1.2 %; Hematocrit 42.1 % (37.0-47.0); Hemoglobin 13.6 g/dL (11.5-15.3); Lymphocytes # 2.6 10^3/uL (0.8-4.8); Lymphocytes % 21.6 %; Mean Corpuscular HGB Conc 32.3 g/dL (30.0-36.0); Mean Corpuscular Hemoglobin 26.4 pg (28.0-34.0); Mean Corpuscular Volume 81.6 fl (81-99); Mean Platelet Volume 11.7 fL (7.4-10.4); Monocytes # 0.6 10^3/uL (0.2-0.9); Monocytes % 5.2 %; Neutrophils # 8.61 10^3/uL (1.8-7.7); Neutrophils % 71.1 %; Nucleated Red Blood Cells % 0 %; Platelet Count 276 10^3/cmm (130-400); Red Blood Count 5.16 10^6/uL (4.1-5.3); Red Cell Distribution Width 14.7 % (12.1-15.1); White Blood Count 12.1 10^3/uL (4.0-10.0)
--- NOTE | 2022-12-15 01:11 | W.ED.ABDPA2 ---
HPI - Abdominal Pain General: Chief Complaint: Abdominal Pain Stated Complaint: right sided hernia pain Time Seen by Provider: 12/15/22 00:10 History of Present Illness: 37-year-old female with history of morbid obesity, chronic pain, fibromyalgia presents to the emergency department with 1 week of right-sided abdominal pain. She was here 1 week ago and was told she had a hernia. She has a follow-up appoint with general surgeon in 3 weeks for evaluation of this hernia. She states that her abdomen is feed mill tender as it was when she was discharged from the emergency department no associated diarrhea, nausea, or vomiting. States that the pain is bothersome to her and she took some tramadol with minimal improvement of her symptoms. She has been eating a regular diet at home during this entire period PFSH ED PFSH: Medical History Asthma Blood type O- Fibromyalgia Generalized anxiety disorder Major depressive disorder, recurrent severe without psychotic features Migraine without aura No pertinent past medical history neghx: htn,dm,thyroid,dvt/pe PCP: [facility] Obesity Post-traumatic stress disorder, chronic Ventral hernia Surgical History History of abdominoplasty (2012) Pannus removal, tummy ozzyck @ [facility] History of bilateral breast reduction surgery (2007) History of cholecystectomy History of hernia repair (~08/2020) Family History Mother Hypertension Diabetes Graves disease Grandmother Stroke Maternal Diabetes Paternal Father Hypercholesterolemia Grandfather Cancer Maternal Grandfather: Mesothelioma Grandfather Colon cancer Paternal---dx age unknown Denies family history of Ovarian cancer Heart disease Breast cancer Uterine cancer Social History Smoking and tobacco status: never smoked Additional social history: Well-balanced diet No substance abuse. Physical Exam Narrative: EXAM NARRATIVE: Abdominal examination, morbidly obese female with no tenderness to palpation, no rebound, no peritoneal signs, no tenderness or McBurney's point, negative Cardenas sign, no overlying skin changes or rash, no CVA tenderness. Const: COMMON NORMALS: no acute distress; negative for average body habitus and negative for healthy appearing GENERAL APPEARANCE: cooperative and comfortable HENMT: COMMON NORMALS: normocephalic, atraumatic and Normal external nose present HEAD & SCALP: normocephalic and atraumatic FACE & SINUS: normal facial exam and sinuses nontender NOSE: Normal external nose present and Normal nares present MOUTH: Normal oral and palatal mucosa present Eye: COMMON NORMALS: Equal, round and reactive pupils present PUPIL: Yes Equal, round and reactive pupils present Neck/C-Spine: COMMON NORMALS: full ROM and no JVD Lymph: LYMPHATIC: no lymphadenopathy noted Chest: COMMONS NORMALS: normal inspection of the chest and normal palpation of entire chest wall Resp: COMMON NORMALS: normal respiratory effort and No retractions Cardio: COMMON NORMALS: no JVD and regular rate RATE: regular rate GI: COMMON NORMALS: Normal to inspection, nondistended, normoactive bowel sounds present : COMMON NORMALS: Yes no CVA tenderness BLADDER/KIDNEY EXAM: Yes no CVA tenderness Back/Pelvis: COMMON NORMALS: no CVA tenderness Course Vital Signs: Vital signs: Vital Signs Temperature 98.0 F 12/14/22 21:37 Pulse Rate 92 12/15/22 01:15 Respiratory Rate 18 12/15/22 01:15 Blood Pressure 132/88 12/15/22 01:15 Pulse Oximetry 98 12/15/22 01:15 Oxygen Delivery Me thod 12/15/22 01:15 MDM - Abdominal Pain Medical Decision Making 37-year-old female with known hernia presenting with continued abdominal pain. Vitals nonactionable. Diagnoses considered evaluation this patient include incarcerated hernia, intra-abdominal surgical pathology, referred pain, others. Social determinants of health involved in the care of [place], [place]. Labs on this patient nonactionable. Patient received CT scan for similar pain that has not changed in characterization and has no tenderness to palpation on physical examination. She was given Tylenol, Motrin, Benadryl with improvement of her symptoms even further. She states she is comfortable returning home at this time and returning to the emergency department if her symptoms progress. She has an appointment in a few weeks with general surgery for reevaluation of the same complaint. I feel patient's symptoms are not indicative of acute emergent actionable pathology at this time and if they should change she will come back for reevaluation. Medical Records I reviewed the patient's medical records. Lab Data I reviewed the patient's lab results. 12/15/22 00:47 12/15/22 00:47 Labs/Radiology: Laboratory Results WBC 12.1 10^3/uL (4.0-10.0) H 12/15/22 00:47 RBC 5.16 10^6/uL (4.1-5.3) 12/15/22 00:47 Hgb 13.6 g/dL (11.5-15.3) 12/15/22 00:47 Hct 42.1 % (37.0-47.0) 12/15/22 00:47 MCV 81.6 fl (81-99) 12/15/22 00:47 MCH 26.4 pg (28.0-34.0) L 12/15/22 00:47 MCHC 32.3 g/dL (30.0-36.0) 12/15/22 00:47 RDW 14.7 % (12.1-15.1) 12/15/22 00:47 Plt Count 276 10^3/cmm (130-400) 12/15/22 00:47 MPV 11.7 fL (7.4-10.4) H 12/15/22 00:47 Neut % (Auto) 71.1 % 12/15/22 00:47 Lymph % (Auto) 21.6 % 12/15/22 00:47 [place] % (Auto) 5.2 % 12/15/22 00:47 Eos % (Auto) 1.2 % 12/15/22 00:47 Baso % (Auto) 0.3 % 12/15/22 00:47 Neut # (Auto) 8.61 10^3/uL (1.8-7.7) H 12/15/22 00:47 Lymph # (Auto) 2.6 10^3/uL (0.8-4.8) 12/15/22 00:47 [place] # (Auto) 0.6 10^3/uL (0.2-0.9) 12/15/22 00:47 Eos # (Auto) 0.2 10^3/uL (0.0-0.8) 12/15/22 00:47 Baso # (Auto) 0.0 10^3/uL (0.0-0.1) 12/15/22 00:47 Nucleated RBC % (auto) 0 % 12/15/22 00:47 Nucleated RBCs # 0.0 /100WBC 12/15/22 00:47 Sodium 142 mmol/L (136-145) 12/15/22 00:47 Potassium 3.7 mmol/L (3.5-5.1) 12/15/22 00:47 Chloride 106 mmol/L (98-107) 12/15/22 00:47 Carbon Dioxide 23 mmol/L (22-29) 12/15/22 00:47 Anion Gap 16.7 (5-19) 12/15/22 00:47 BUN 13 mg/dL (6-20) 12/15/22 00:47 Creatinine 1.0 mg/dL (0.5-0.9) H 12/15/22 00:47 GFR Calculation 61.7 mL/min (90-130) L 12/15/22 00:47 Glucose 98 mg/dL (65-115) 12/15/22 00:47 Calculated Osmolality 294 mOsm/kg (285-295) 12/15/22 00:47 Calcium 8.9 mg/dL (8.5-10.5) 12/15/22 00:47 Total Bilirubin 0.5 mg/dL (0.15-1.2) 12/15/22 00:47 AST 14 U/L (0-32) 12/15/22 00:47 ALT 13 U/L (0-33) 12/15/22 00:47 Alkaline Phosphatase 102 U/L (35-105) 12/15/22 00:47 Total Protein 7.3 g/dL (6.6-8.7) 12/15/22 00:47 Albumin 3.9 g/dL (3.5-5.2) 12/15/22 00:47 Globulin 3.4 g/dL (1.3-4.6) 12/15/22 00:47 Lipase 19 U/L (13-60) 12/15/22 00:47 HCG, Qual Negative (Negative) 12/15/22 01:07 Ser , Semi-Qnt 1.00 mIU/mL 12/15/22 00:47 Urine Color Yellow (Yellow) 12/15/22 01:07 Urine Appearance Clear (CLEAR) 12/15/22 01:07 Urine pH 5 (5-7) 12/15/22 01:07 Ur Specific Nelson 1.025 (1.005-1.030) 12/15/22 01:07 Urine Protein Neg (Negative) 12/15/22 01:07 Urine Glucose (UA) Norm (Normal) 12/15/22 01:07 Urine Ketones Negative (Negative) 12/15/22 01:07 Urine Blood Neg (Negative) 12/15/22 01:07 Urine Nitrate Negative (Negative) 12/15/22 01:07 Urine Bilirubin Neg (Negative) 12/15/22 01:07 Urine Urobilinogen Neg mg/dL (Negative) 12/15/22 01:07 Ur Leukocyte Esterase Negative (Negative) 12/15/22 01:07 Discharge Plan Discharge Patient Disposition: Home Clinical Impression: Abdominal pain Condition: Stable Prescriptions: New dicyclomine 20 mg tablet 20 mg PO BID Qty: 10 0RF No Action cetirizine [Zyrtec] 10 mg tablet 10 mg PO DAILY Qty: 30 2RF cyclobenzaprine 5 mg tablet 5 mg PO TID PRN (Reason: muscle spasm) Qty: 90 2RF buspirone 10 mg tablet 10 mg PO TID Qty: 90 1RF hydroxyzine HCl 25 mg tablet 25 mg PO QID PRN (Reason: anxiety) Qty: 120 1RF albuterol sulfate [ProAir HFA] 90 mcg/actuation HFA aerosol inhaler 2 puff INHALATION Q6H PRN (Reason: Shortness Of Breath Or Wheezing) fluticasone propionate [Allergy Relief (fluticasone)] 50 mcg/actuation spray,suspension 2 spray INTRANASAL BID (DME) lancing device with lancets [[employer] Lanc Device] Kit See Rx Instructions .ROUTE .MEDSUPPLY Qty: 1 0RF Rx Instructions: As directed ketoconazole 2 % shampoo 1 applic topical Q14D Qty: 120 6RF Rx Instructions: Lather into scalp 2-3 times weekly. Allowed to sit on scalp for 5 minutes before rinsing. triamcinolone acetonide 0.1 % ointment 1 applic topical BID Qty: 80 0RF Rx Instructions: Apply to affected area no more than 2 weeks/month. Not for use on face. clobetasol 0.05 % solution 1 applic topical DAILY Qty: 50 3RF Rx Instructions: Apply few drops to itchy areas of scalp as needed. Flovent HFA 220 mcg/actuation HFA aerosol inhaler 2 puff INHALATION BID Qty: 12 1RF Rx Instructions: In Cailin perdomo's (DME) OneTouch Ultra Blue Test Strip Strip See Rx Instructions .Route Qty: 120 2RF Rx Instructions: As directed ascorbic acid (vitamin C) [Vitamin C] 500 mg Tablet 250 mg PO DAILY ibuprofen [Advil] 200 mg Tablet 200 mg PO Q6H PRN (Reason: Pain) vitamin B complex Tablet 1 tab PO DAILY omeprazole 20 mg capsule,delayed release(DR/EC) 20 mg PO BEDTIME montelukast 10 mg tablet 10 mg PO BEDTIME Rx Instructions: needs a new provider for refills tramadol 50 mg Tablet 50 mg PO Q6H PRN (Reason: Pain) oxycodone 5 mg tablet 5 mg PO Q4H PRN (Reason: pain) Qty: 10 0RF ClearLax 17 gram/dose powder 17 g PO DAILY Qty: 510 0RF Discharge Orders: Discharge ED (Routine); Ordered 12/15/22 Ordered By: Valentino Kirkland Referrals: Shane Umaña NP [Primary Care Provider] - Discharge Diet: Advance as tolerated Discharge Activity: Resume usual activity Patient Instructions: Abdominal Pain (ED), Opioid Safety, Pain Management Coding Level of Care Code ED Faceter for Jess Gamboa
[2022-12-15 01:15] VITALS: BP 132/88; PULSE 92; RESP 18; O2SAT 98
[2022-12-15 01:16] LABS: Add Urine Microscopic? NO; Charge for UA Resulting for Rev
[2022-12-15 01:33] LABS: Alanine Aminotransferase 13 U/L (0-33); Albumin Level 3.9 g/dL (3.5-5.2); Alkaline Phosphatase 102 U/L (35-105); Anion Gap 16.7 (5-19); Aspartate Amino Transferase 14 U/L (0-32); Blood Urea Nitrogen 13 mg/dL (6-20); Calcium 8.9 mg/dL (8.5-10.5); Carbon Dioxide 23 mmol/L (22-29); Chloride 106 mmol/L (98-107); Globulin 3.4 g/dL (1.3-4.6); Glomerular Filtration Rate 61.7 mL/min (90-130); Glucose 98 mg/dL (65-115); Lipase 19 U/L (13-60); Osmolality Calculated 294 mOsm/kg (285-295); Potassium 3.7 mmol/L (3.5-5.1); Sodium 142 mmol/L (136-145); Total Bilirubin 0.5 mg/dL (0.15-1.2); Total Protein 7.3 g/dL (6.6-8.7)
[2022-12-15 01:39] LABS: Bilirubin Urine Neg (Negative); Blood Urine Neg (Negative); Glucose Urine UA Norm (Normal); HCG Qualitative Urine. Negative (Negative); Ketones Urine Negative (Negative); Leukocyte Esterase Urine Negative (Negative); Nitrate Urine Negative (Negative); Protein Urine Neg (Negative); Specific Gravity, Urine 1.025 (1.005-1.030); Urine Appearance Clear (CLEAR); Urine Color Yellow (Yellow); Urobilinogen Urine Neg (Negative); pH Urine 5 (5-7)
[2022-12-15 02:15] VITALS: BP 127/88; PULSE 81; RESP 18; O2SAT 99
== END 2022-12-15 02:16 | disposition home or self-care (01) ==
PROVIDERS: Emergency Provider General Practice; PCP Nurse Practitioner Family
DX: R10.9 Unspecified abdominal pain (principal)
CPT/HCPCS: 80053; 81003; 81025; 83690; 84702; 85025; 99283

== ENCOUNTER → 2023-01-06 13:38 | Outpatient (BNVA) | payer MEDICAID, SELFPAY | PROVIDERS: PCP Nurse Practitioner Family; Visit Provider Surgery | DX: K21.9 Gastro-esophageal reflux disease without esophagitis (principal); K43.2 Incisional hernia without obstruction or gangrene | CPT/HCPCS: 99204; 99214 ==

== ENCOUNTER 2023-01-28 05:53 | Day surgery (SDC) | payer MEDICAID, SELFPAY ==
[2023-01-26 13:59] VITALS: BMI 46.3
[2023-01-28 06:10] VITALS: BP 111/70; PULSE 77; RESP 16; TEMP 36.1; O2SAT 96
[2023-01-28 06:26] LABS: OR HCG Qualitative Urine Negative (Negative)
[2023-01-28] MEDS: sodium chloride 0.9% 1,000 ML 30 ML IV (06:32)
--- NOTE | 2023-01-28 06:44 | W.PM.OPSUD ---
Surgery/Procedure H&P Update DATE OF PROCEDURE: January 28, 2023 DATE H&P PERFORMED: 01/06/23 H&P UPDATE INFORMATION: I have reviewed H&P completed within last 30 days, I have examined patient prior to procedure and No changes to prior documentation PLANNED PROCEDURE: Operation Date: 01/28/23 07:00 Proposed Procedures p 58287 egd, K21.9(Not Applicable) - Daron Clemente, DO
--- NOTE | 2023-01-28 06:54 | ANES.PREANE2 ---
Pre-Anesthetic Assessment Height/Weight: Height 1.63 m Weight 122.47 kg Temp Pulse Resp BP Pulse Ox O2 Del Method 97 F L 77 16 111/70 96 Room Air 01/28/23 06:10 01/28/23 06:10 01/28/23 06:10 01/28/23 06:10 01/28/23 06:10 01/28/23 06:10 Preop Diagnosis: GERD Operation Date: 01/28/23 07:00 Proposed Procedures p 92924 egd, K21.9(Not Applicable) - Daron Clemente DO Familial anesthetic complications: none Was Beta Thanh taken within 24 hours: N/A Was Clonidine taken within 24 hours: N/A Last intake: Intake Last Liquid Date 01/27/23 Last Liquid Time 22:00 Last Solid Date 01/27/23 Last Solid Time 21:00 Last Intake: 22:00 Social No alcohol and No tobacco Exam alert, oriented x 3, clear to auscultation bilaterally and regular rate & rhythm Airway Submandibular: within normal limits Cervical ROM: within normal limits Mallampati: Class II Dentition: full Pulmonary Asthma and Sleep Apnea (CPAP) CV/HEM None reported None reported Hepatic None reported GI Gastroesophageal Reflux Disease Metabolic Morbid Obesity Musc/skel Fibromyalgia, Lower Back Pain and Scoliosis Neuropsych Anxiety and Depression Anesthetic Plan ASA status: 2 Anesthesia: MAC Risk of > 500 ml blood loss (7ml/kg in children): No Medications/Allergies Home Medications Medication Instructions Recorded Confirmed Last Taken Type albuterol sulfate 90 mcg/actuation 2 puff inhalation Q6H PRN 09/20/19 01/28/23 Unknown History aerosol inhaler (ProAir HFA) Shortness Of Breath Or Wheezing fluticasone propionate 50 2 spray intranasal BID 09/20/19 01/28/23 01/27/23 History mcg/actuation nasal spray,suspension (Allergy Relief (fluticasone)) cetirizine 10 mg tablet (Zyrtec) 10 mg PO DAILY #30 tabs 11/30/19 01/28/23 01/27/23 Rx fluticasone propionate 220 2 puff inhalation BID #12 grams 12/26/19 01/28/23 01/27/23 Rx mcg/actuation HFA aerosol inhaler (Flovent HFA) lancing device with lancets kit #1 ea 11/28/20 01/21/23 Unknown Rx ([employer] Lancing Device kit) cyclobenzaprine 5 mg tablet 5 mg PO TID PRN muscle spasm #90 02/07/21 01/28/23 01/26/23 Rx tabs blood sugar diagnostic (OneTouch #120 ea 03/04/21 01/06/23 Unknown Rx Ultra Blue Test Strip) buspirone 10 mg tablet 10 mg PO TID #90 tabs 09/24/21 01/28/23 01/27/23 Rx hydroxyzine HCl 25 mg tablet 25 mg PO QID PRN anxiety #120 tabs 09/24/21 01/28/23 01/27/23 Rx ascorbic acid (vitamin C) 500 mg 250 mg PO DAILY 06/05/22 01/28/23 01/27/23 History tablet (Vitamin C) ibuprofen 200 mg tablet (Advil) 200 mg PO Q6H PRN Pain 06/05/22 01/28/23 01/27/23 History montelukast 10 mg tablet 10 mg PO BEDTIME 06/05/22 01/28/23 01/27/23 History tramadol 50 mg tablet 50 mg PO Q6H PRN Pain 06/05/22 01/28/23 06/05/22 History vitamin B complex 1 tab PO DAILY 06/05/22 01/28/23 01/27/23 History clobetasol 0.05 % scalp solution 1 applic topical DAILY #50 mL 11/25/22 01/28/23 01/27/23 Rx ketoconazole 2 % shampoo 1 applic topical Q14D #120 mL 11/25/22 01/28/23 01/27/23 Rx triamcinolone acetonide 0.1 % 1 applic topical BID #80 grams 11/25/22 01/28/23 Unknown Rx topical ointment pantoprazole 40 mg tablet,delayed 40 mg PO BID 6 weeks #84 tabs 01/06/23 01/28/23 01/27/23 Rx release (Protonix) acetaminophen 325 mg tablet 325 mg PO QID PRN pain 01/26/23 01/28/23 01/27/23 History (Tylenol) Allergies Allergy/AdvReac Type Severity Reaction Status Date / Time aspartame Allergy Severe Headache Verified 01/06/23 13:47 aspirin Allergy ADR/ALGY-Hy Verified 01/26/23 13:53 potension [place]edarwood Allergy runny nose Verified 01/06/23 13:47 imipramine Allergy Rash Verified 01/06/23 13:47 gluten AdvReac Gas, sick Verified 01/06/23 13:47 to stomach Sunblock Allergy Unknown Uncoded 01/06/23 13:47 Current Medications Generic Name Dose Route Start Last Admin Trade Name Freq PRN Reason Stop Dose Admin Sodium Chloride 1,000 mls @ 30 mls/hr 01/28/23 06:00 01/28/23 06:32 Sodium Chloride 0.9% IV 01/29/23 05:59 30 mls/hr .Q24H AIDE Administration PFSH Anesthesia Medical History (Updated 01/22/23 @ 08:24 by Ananya Erwin) Asthma Blood type O- Fibromyalgia Generalized anxiety disorder Major depressive disorder, recurrent severe without psychotic features Migraine without aura No pertinent past medical history neghx: htn,dm,thyroid,dvt/pe [facility]CP: [facility] Obesity Post-traumatic stress disorder, chronic Psychiatric care Ventral hernia Surgical History History of abdominoplasty (2012) Pannus removal, tummy ozzyck @ [facility] History of bilateral breast reduction surgery (2007) History of cholecystectomy History of hernia repair (~08/2020) Family History Mother Hypertension Diabetes Graves disease Grandmother Stroke Maternal Diabetes Paternal Father Hypercholesterolemia Grandfather Cancer Maternal Grandfather: Mesothelioma Grandfather Colon cancer Paternal---dx age unknown Denies family history of Ovarian cancer Heart disease Breast cancer Uterine cancer Social History Smoking and tobacco status: never smoked Substance/Drug Use: never Do you think of yourself as: Straight/Heterosexual Additional social history: Well-balanced diet No substance abuse. Female Reproductive History Date of last menstrual period: 01/26/23 Data Anesthesia Cardiac Studies: No Data to Display
[2023-01-28 07:16] VITALS: BP 99/65; PULSE 63; RESP 16; TEMP 36.4; O2SAT 100
[2023-01-28 07:21] VITALS: BP 115/78; PULSE 71; RESP 18; O2SAT 98
[2023-01-28 07:31] VITALS: BP 117/74; PULSE 66; RESP 18; O2SAT 100
--- NOTE | 2023-01-28 07:56 | PC.NURSE ---
patient and states med transport was to bring them to the hospital and pick them up after procedure. States there was a mix up with med transport and a friend drove them to the hospital this morning. States they wanted nurse to call med transport. I attempted call, per providing number, and was unable to get through to a person. Call attempted x3. Asked patient and if their friend could come pick them up and they said they will attempt to try and call him. I offered to call a taxi and they stated they do not have any money. Patient ready for discharge. Paperwork completed. still attempting to find ride. Charge nurse, Gwendolyn Cordoba RN updated on situation. Patient asked if I would contact out patient surgery to find out her surgery time and check in time for her appointment on Thursday so she can schedule med transport for that procedure. I called out patient surgery, spoke with Renate, she states as long as the schedule does not change her surgery is scheduled at 7:00am and her check in time is 5:50am. Patient and given this information. Moved patient via wheelchair to room 1 assisted to recliner. They are waiting on a call back from med transport and/or attempting still to get ahold of their friend to give them a ride home.
--- NOTE | 2023-01-28 17:30 | ANE.PACU2 ---
Inpatient post-anesthesia follow up: Airway intact: Yes Vital signs: Temperature 97.6 F Pulse Rate 66 Respiratory Rate 18 Blood Pressure 117/74 Pulse Oximetry 100 Oxygen Delivery Me thod Room Air Oxygen Flow Rate 2 Fraction of Inspir ed Oxygen Hydration adequate: Yes Nausea and vomiting: No Pain level: 1 Mental status: Baseline
== END 2023-01-28 10:50 | disposition home or self-care (01) ==
PROVIDERS: Anesthesiology; PCP Nurse Practitioner Family; Visit Provider Surgery
PROC: 0DJ08ZZ Inspection of Upper Intestinal Tract, Via Natural or Artificial Opening Endoscopic (ICD-10-PCS; CPT 43235; principal; 2023-01-28 07:00)
DX: K21.9 Gastro-esophageal reflux disease without esophagitis (principal); K29.50 Unspecified chronic gastritis without bleeding; K63.5 Polyp of colon; J45.909 Unspecified asthma, uncomplicated; G47.30 Sleep apnea, unspecified; E66.01 Morbid (severe) obesity due to excess calories; Z68.42 Body mass index [BMI] 45.0-49.9, adult; M79.7 Fibromyalgia; F41.1 Generalized anxiety disorder; F33.9 Major depressive disorder, recurrent, unspecified; K44.9 Diaphragmatic hernia without obstruction or gangrene; K31.7 Polyp of stomach and duodenum
CPT/HCPCS: 43239; 81025; 84703; 88305; 88342; J2704; J7030

== ENCOUNTER 2023-02-02 05:37 | Day surgery (SDC) | payer MEDICAID, SELFPAY ==
[2023-01-30 15:40] VITALS: BMI 46.3
[2023-02-02] VITALS (14 sets, daily range): BP systolic 108–155; BP diastolic 62–86; PULSE 55–80; RESP 17–21; TEMP 36.2–36.5; O2SAT 92–100
[2023-02-02] MEDS: scopolamine 1.5 Patch 1 PATCH TRANSDERMA (06:11)
[2023-02-02 06:14] LABS: OR HCG Qualitative Urine Negative (Negative)
[2023-02-02] MEDS: sodium chloride 0.9% 1,000 ML 30 ML IV (06:16)
--- NOTE | 2023-02-02 06:45 | P.ANESASSM_ITS ---
Pre-Anesthetic Assessment Height/Weight: Height 1.63 m Weight 122.47 kg Temp Pulse Resp BP Pulse Ox O2 Del Method 97.7 F 71 20 H 155/86 95 Room Air 02/02/23 06:01 02/02/23 06:01 02/02/23 06:01 02/02/23 06:11 02/02/23 06:01 02/02/23 06:08 Operation Date: 02/02/23 07:00 Proposed Procedures p 35047 lap repair of recurrnet incisional hernia with mesh K43.2(Not Applicable) - Daron Clemente DO Familial anesthetic complications: None Was Beta Thanh taken within 24 hours: N/A Was Clonidine taken within 24 hours: N/A Last intake: Intake Last Liquid Date 02/01/23 Last Liquid Time 23:06 Last Solid Date 02/01/23 Last Solid Time 19:00 Social No alcohol and No tobacco Exam alert, oriented x 3, clear to auscultation bilaterally and regular rate & rhythm Airway Mallampati: Class II Dentition: full Pulmonary Asthma and Sleep Apnea GI Gastroesophageal Reflux Disease Metabolic Morbid Obesity [facility] Fibromyalgia Neuropsych Anxiety Anesthetic Plan ASA status: 2 Anesthesia: General Risk of > 500 ml blood loss (7ml/kg in children): No Medications/Allergies Home Medications Medication Instructions Recorded Confirmed Last Taken Type albuterol sulfate 90 mcg/actuation 2 puff inhalation Q6H PRN 09/20/19 01/30/23 Unknown History aerosol inhaler (ProAir HFA) Shortness Of Breath Or Wheezing fluticasone propionate 50 2 spray intranasal BID 09/20/19 01/30/23 01/30/23 History mcg/actuation nasal spray,suspension (Allergy Relief (fluticasone)) cetirizine 10 mg tablet (Zyrtec) 10 mg PO DAILY #30 tabs 11/30/19 01/30/23 02/01/23 Rx fluticasone propionate 220 2 puff inhalation BID #12 grams 12/26/19 01/30/23 01/30/23 Rx mcg/actuation HFA aerosol inhaler (Flovent HFA) lancing device with lancets kit #1 ea 11/28/20 01/30/23 Unknown Rx (OneTouch [employer]ica Lancing Device kit) cyclobenzaprine 5 mg tablet 5 mg PO TID PRN muscle spasm #90 02/07/21 01/30/23 01/26/23 Rx tabs blood sugar diagnostic (OneTouch #120 ea 03/04/21 01/30/23 Unknown Rx Ultra Blue Test Strip) buspirone 10 mg tablet 10 mg PO TID #90 tabs 09/24/21 01/30/23 02/01/23 Rx hydroxyzine HCl 25 mg tablet 25 mg PO QID PRN anxiety #120 tabs 09/24/21 01/30/23 02/01/23 Rx ascorbic acid (vitamin C) 500 mg 250 mg PO DAILY 06/05/22 01/30/23 02/01/23 History tablet (Vitamin C) ibuprofen 200 mg tablet (Advil) 200 mg PO Q6H PRN Pain 06/05/22 01/30/23 01/27/23 History montelukast 10 mg tablet 10 mg PO BEDTIME 06/05/22 01/30/23 02/01/23 History tramadol 50 mg tablet 50 mg PO Q6H PRN Pain 06/05/22 01/30/23 06/05/22 History vitamin B complex 1 tab PO DAILY 06/05/22 01/30/23 02/01/23 History clobetasol 0.05 % scalp solution 1 applic topical DAILY #50 mL 11/25/22 01/30/23 02/01/23 Rx ketoconazole 2 % shampoo 1 applic topical Q14D #120 mL 11/25/22 01/30/23 01/30/23 Rx triamcinolone acetonide 0.1 % 1 applic topical BID #80 grams 11/25/22 01/30/23 02/01/23 Rx topical ointment pantoprazole 40 mg tablet,delayed 40 mg PO BID 6 weeks #84 tabs 01/06/23 01/30/23 02/01/23 Rx release (Protonix) acetaminophen 325 mg tablet 325 mg PO QID PRN pain 01/26/23 01/30/23 01/27/23 History (Tylenol) Allergies Allergy/AdvReac Type Severity Reaction Status Date / Time aspartame Allergy Severe Headache Verified 01/30/23 15:38 aspirin Allergy ADR/ALGY-Hy Verified 01/30/23 15:38 potension cedarwood Allergy runny nose Verified 01/30/23 15:38 imipramine Allergy Rash Verified 01/30/23 15:38 gluten AdvReac Gas, sick Verified 01/30/23 15:38 to stomach Sunblock Allergy Unknown Uncoded 01/30/23 15:38 Current Medications Generic Name Dose Route Start Last Admin Trade Name Scott PRN Reason Stop Dose Admin Sodium Chloride 1,000 mls @ 30 mls/hr 02/02/23 06:00 02/02/23 06:16 Sodium Chloride 0.9% IV 02/03/23 05:59 30 mls/hr .Q24H AIDE Administration PFSH Anesthesia Medical History (Updated 01/22/23 @ 08:24 by Ananya Erwin) Asthma Blood type O- Fibromyalgia Generalized anxiety disorder Major depressive disorder, recurrent severe without psychotic features Migraine without aura No pertinent past medical history neghx: htn,dm,thyroid,dvt/pe PCP: [facility] Obesity Post-traumatic stress disorder, chronic Psychiatric care Ventral hernia Surgical History History of abdominoplasty (2012) Pannus removal, karen peña @ [facility] History of bilateral breast reduction surgery (2007) History of cholecystectomy History of hernia repair (~08/2020) Family History Mother Hypertension Diabetes Graves disease Grandmother Stroke Maternal Diabetes Paternal Father Hypercholesterolemia Grandfather Cancer Maternal Grandfather: Mesothelioma Grandfather Colon cancer Paternal---dx age unknown Denies family history of Ovarian cancer Heart disease Breast cancer Uterine cancer Social History Smoking and tobacco status: never smoked Substance/Drug Use: never Do you think of yourself as: Straight/Heterosexual Additional social history: Well-balanced diet No substance abuse. Female Reproductive History Date of last menstrual period: 01/24/23 Data Anesthesia Cardiac Studies: No Data to Display
--- NOTE | 2023-02-02 06:47 | W.PM.OPSUD ---
Surgery/Procedure H&P Update DATE OF PROCEDURE: February 02, 2023 DATE H&P PERFORMED: 01/06/23 H&P UPDATE INFORMATION: I have reviewed H&P completed within last 30 days, I have examined patient prior to procedure and No changes to prior documentation PLANNED PROCEDURE: Operation Date: 02/02/23 07:00 Proposed Procedures p 25769 lap repair of recurrnet incisional hernia with mesh K43.2(Not Applicable) - Daron Clemente, DO
[2023-02-02] MEDS: ceFAZolin 2,000 MG in sodium chloride 0.9% (plus) 50 ML 100 MG IV (07:00)
[2023-02-02] MEDS: lidocaine-epi 2% 20 mL INJ INJECTION (07:28)
[2023-02-02] MEDS: fentaNYL 50 mcg/mL INJ 2mL IVP (08:35)
[2023-02-02] MEDS: TRAMadol 50 mg Tablet 100 MG PO (09:32)
--- NOTE | 2023-02-02 10:55 | PC.NURSE ---
1000 - instructing pt to get out of bed to go to bathroom. pt states I can't move, i have fibromyalgia informed pt that moving will help the fibromyalgia and pain. Pt moving very slowly states give me a minute pt took 45 minutes to get from be to bedside commode using her walker. 1145- pt to bsc. instructed pt to get dressed when done using bsc.
--- NOTE | 2023-02-02 11:25 | PC.NURSE ---
1125 - pt dressed and to wheelchair. attempting to get ride home. eating jello and pudding.
--- NOTE | 2023-02-02 15:22 | ANE.PACU2 ---
Inpatient post-anesthesia follow up: Airway intact: Yes Vital signs: Temperature 97.6 F Pulse Rate 80 Respiratory Rate 18 Blood Pressure 108/67 Pulse Oximetry 94 Oxygen Delivery Me thod Room Air Oxygen Flow Rate 6 Fraction of Inspir ed Oxygen Hydration adequate: Yes Nausea and vomiting: No Pain level: 1 Mental status: Baseline
--- NOTE | 2023-02-02 18:00 | P.OP_ITS ---
Operative Report Date of procedure: February 02, 2023 Pre-op diagnosis: Recurrent incisional hernia at the umbilicus Post-op diagnosis: same Procedure done: Laparoscopic repair of recurrent incisional hernia with mesh Implants: 6 inch round Ventralight mesh Specimens removed/disposition: Hernia sac Surgeon: Dr. Daron Clemente DO Anesthesia: General Estimated blood loss (mL): 5 Complications: None apparent Brief History: Very pleasant 37-year-old female with a recurrence of a hernia at her umbilicus. This was previously repaired in an open fashion with mesh. The risks and benefits of the procedure were explained and documented Procedure: Patient was wheeled into the operative room and placed on the OR table in a supine position. Abdomen was inspected prepped and draped in usual sterile fashion. Time-out was performed and all present were in agreement. A 15 blade scalp was used to make a 5 millimeter incision left upper quadrant. A Veress needle was placed into the incision and intra-abdominal insufflation was brought to 15 millimeters of mercury. A 12 millimeter trocar was placed into the left lower quadrant. There was omentum scarred to the previous mesh inside the hernia. This was taken down with Enseal. The hernia defect was 4 cm in diam eter. The energy but device was then used to cut out the hernia sac. A 6 inch ventral light mesh was placed into the abdomen and brought up through the umbilicus using an the Jan-Tish. The mesh was then tacked in place in a double crown fashion. The skeleton of the mesh was removed via the left lower quadrant. The hernia sac was then removed from the abdomen via the left lower quadrant. The left lower quadrant port site was closed with an 0 Vicryl suture in a Jan-Tish in a [id number] fashion. Incisions were closed with 4 O Vicryl in a subcuticular interrupted fashion. Skin glue was applied. A dressing that included cotton balls and a Tegaderm was placed over the umbilicus. Patient tolerated the procedure well.
== END 2023-02-02 12:20 | disposition home or self-care (01) ==
PROVIDERS: Anesthesiology; PCP Nurse Practitioner Family; Visit Provider Surgery
PROC: 0WQF4ZZ Repair Abdominal Wall, Percutaneous Endoscopic Approach (ICD-10-PCS; CPT 49615; principal; 2023-02-02 07:00)
DX: K43.2 Incisional hernia without obstruction or gangrene (principal); J45.909 Unspecified asthma, uncomplicated; G47.30 Sleep apnea, unspecified; E66.01 Morbid (severe) obesity due to excess calories; Z68.42 Body mass index [BMI] 45.0-49.9, adult; M79.7 Fibromyalgia; F41.1 Generalized anxiety disorder
CPT/HCPCS: 49615; 49623; 81025; 84703; 88302; J0690; J1100; J1170; J1200; J2250; J2405; J2704; J2710; J3010; J3490; J7030

== ENCOUNTER → 2023-02-17 11:18 | Outpatient (BNVA) | payer MEDICAID, SELFPAY | PROVIDERS: PCP Nurse Practitioner Family; Visit Provider Surgery | DX: Z98.890 Other specified postprocedural states (principal); Z87.19 Personal history of other diseases of the digestive system | CPT/HCPCS: 99024 ==

== ENCOUNTER 2023-02-22 23:24 | Emergency (ER) | payer MEDICAID, SELFPAY ==
[2023-02-22 23:25] VITALS: BMI 46.3
[2023-02-22 23:28] VITALS: BP 127/71; PULSE 87; RESP 17; TEMP 36.6; O2SAT 97
--- NOTE | 2023-02-22 23:50 | CTR_ITS ---
PROCEDURE INFORMATION: Exam: CT Abdomen And Pelvis Without Contrast Exam date and time: 02/23/2023 1:00 AM Age: 37 years old Clinical indication: Abdominal pain; Prior surgery; Surgery date: <1 month; Surgery type: Hernia repair three weeks ago. Gb; Patient HX: C/O left flank pain TECHNIQUE: Imaging protocol: Computed tomography of the abdomen and pelvis without contrast. Radiation optimization: All CT scans at this facility use at least one of these dose optimization techniques: automated exposure control; mA and/or kV adjustment per patient size (includes targeted exams where dose is matched to clinical indication); or iterative reconstruction. REPORTING DATA: Count of CT and Cardiac NM exams in prior 12 months: This patient has received [address] and 0 known cardiac nuclear medicine studies in the 12 months prior to the current study. COMPARISON: CT abdomen pelvis w con* [id number] 12/07/2022 4:02 PM RADIATION DOSE METRICS: Total DLP (mGy-cm): 1080.71 FINDINGS: Liver: Normal. No mass. Gallbladder and bile ducts: Cholecystectomy. Nondilated biliary system. Pancreas: Normal. No ductal dilation. Spleen: Normal. No splenomegaly. Adrenal glands: Normal. No mass. Kidneys and ureters: 2 mm nonobstructing right renal upper pole stone. Negative for left renal stones. Negative for hydronephrosis. Negative for perinephric inflammation. Stomach and bowel: Unremarkable. No obstruction. No mucosal thickening. Appendix: No evidence of appendicitis. Intraperitoneal space: Unremarkable. No free air. No significant fluid collection. Vasculature: Unremarkable. No abdominal aortic aneurysm. Lymph nodes: Unremarkable. No enlarged lymph nodes. Urinary bladder: Unremarkable as visualized. Reproductive: Unremarkable as visualized. Bones/joints: Unremarkable. No acute fracture. Soft tissues: Ventral abdominal wall surgical changes in the midline. Hazy periumbilical ventral abdominal wall soft tissue edema. No focal organized fluid collection. CT/CT kidney stone [id number] IMPRESSION: 1. Negative for acute abdominopelvic pathology. 2. Small nonobstructing right kidney stone. 3. Midline periumbilical ventral abdominal wall surgical changes without evidence of complication.
--- NOTE | 2023-02-22 23:54 | W.ED.ABDPA2 ---
HPI - Abdominal Pain General: Chief Complaint: Abdominal Pain Stated Complaint: FLANK PAIN Time Seen by Provider: 02/22/23 23:31 Source: patient History of Present Illness: 37-year-old female with a recent history of hernia surgery, on 02/02. She presents with acute onset of left flank pain that started about 30 minutes prior to arrival. Her pain is an 8 out of 10. No vomiting. No nausea. No diarrhea. No history of kidney stones. MD elicited complaint: abdominal pain Pertinent past history: other Onset (ago): minute(s) Pain Consistency: constant Location: L flank Pain scale (0-10): 8 Quality: stabbing and aching Radiation: back Migration to: no migration Exacerbating factors: nothing Associated Symptoms: Denies chills, diarrhea, dysuria, fever(s), hematochezia, hematemesis, loose stools and vomiting Related Data: Date of Last Menstrual Period: 02/19/23 Review of Systems Const: Denies: fever(s) or chills Card: Denies: chest pain Resp: Denies: dyspnea GI: Reports: abdominal pain; Denies: vomiting, hematemesis, diarrhea or hematochezia : Reports: flank pain; Denies: difficulty voiding, dysuria or urinary frequency Skin/Breast: Denies: rash PFSH ED PFSH: Medical History Asthma Blood type O- Fibromyalgia Generalized anxiety disorder Client has been diagnosed with Generalized Anxiety Disorder, in that, she has been experiencing excessive anxiety and worry occurring more days than not, for at least 6 months, and about a number of events or activities related to daily tasks and performance. The Client has been having difficulty controlling worry, worrying about too many things at the same time, with symptoms of being restless or keyed up, being easily fatigued, difficulty concentrating, irritability, muscle tension, and significant sleep disturbances. These symptoms have caused significant distress and interfering with social, occupational, and other important areas of functioning. Major depressive disorder, recurrent severe without psychotic features Major depressive disorder, recurrent, moderate Following information retrieved/edited from Behavior Assessment Report, completed on 01/21/2023: She endorses depressed mood most days, diminished interest or pleasure in activities, significant weight loss or gain, insomnia or hypersomnia, psychomotor agitation, fatigue or loss of energy, feelings of worthlessness or excessive or inappropriate guilt, diminished ability to think or concentrate or indecisiveness. She is able to identify at least 2 months where she has not noticed depressive symptoms since the onset of her symptoms. Migraine without aura No pertinent past medical history neghx: htn,dm,thyroid,dvt/pe PCP: [facility] Obesity Post-traumatic stress disorder, chronic Client has been diagnosed with Post-Traumatic Stress Disorder (F43.10), based on the reported symptoms: History of trauma from childhood experiences, Intrusive symptoms include intrusive thoughts, nightmares, flashbacks, and emotional distress after exposure to traumatic reminders. Avoidance of stimuli includes trauma-related thoughts or feelings, trauma-related reminders. Negative alterations in cognition and mood include exaggerated blame of self and decreased interest in activities. Alterations in arousal and reactivity include irritability, hypervigilance, and difficulty concentrating. Symptoms have last for more than 1 month create distress or functional impairment and are not due to medication, substance use, or other illness. Psychiatric care Ventral hernia Surgical History History of abdominoplasty (2012) Pannus removal, karen peña @ [facility] History of bilateral breast reduction surgery (2007) History of cholecystectomy History of hernia repair (~08/2020) Family History Mother Hypertension Diabetes Graves disease Grandmother Stroke Maternal Diabetes Paternal Father Hypercholesterolemia Grandfather Cancer Maternal Grandfather: Mesothelioma Grandfather Colon cancer Paternal---dx age unknown Denies family history of Ovarian cancer Heart disease Breast cancer Uterine cancer Social History Smoking and tobacco status: never smoked Substance/Drug Use: never Do you think of yourself as: Straight/Heterosexual Additional social history: Well-balanced diet No substance abuse. Female Reproductive History: Date of last menstrual period: 02/19/23 Physical Exam Const: COMMON NORMALS: no acute distress GENERAL APPEARANCE: cooperative; not ill appearing and not frail appearing HENMT: COMMON NORMALS: normocephalic, atraumatic and Normal external nose present HEAD & SCALP: normocephalic and atraumatic FACE & SINUS: normal facial exam and face symmetric NOSE: Normal external nose present Eye: COMMON NORMALS: Equal, round and reactive pupils present and EOMs intact bilaterally PUPIL: Yes Equal, round and reactive pupils present Neck/C-Spine: GENERAL: Yes trachea midline Chest: CHEST: Yes Symmetrical chest wall rise Resp: COMMON NORMALS: normal respiratory effort, No retractions, No use of accessory muscles and clear to auscultation bilaterally AUSCULTATION: clear to auscultation bilaterally Cardio: COMMON NORMALS: regular rate and regular rhythm RATE: regular rate RHYTHM: regular rhythm GI: COMMON NORMALS: Normal to inspection, nondistended, normoactive bowel sounds present PALPATION: Yes Tenderness to palpation present (GI) Details: LLQ : BLADDER/KIDNEY EXAM: Yes CVA tenderness Back/Pelvis: GENERAL BACK: Yes CVA tenderness CVA tenderness: left Extremity: COMMON NORMALS: no pedal edema Neuro: SAUD COMA SCALE: document GCS findings [place] coma scale eye opening: Spontaneous Saud coma scale verbal response: Orientated [place] coma scale motor response: Obey commands [place] coma scale total score: 15 SENSORY EXAM: Yes extremities (intact) Psych: COMMON NORMALS: speech normal SPEECH: Yes normal speech Skin: COMMON NORMALS: no rashes or lesions noted GENERAL SKIN EXAM: no rashes or lesions noted Course Vital Signs: Vital signs: Vital Signs Temperature 97.9 F 02/23/23 02:35 Pulse Rate 75 02/23/23 02:35 Respiratory Rate 16 02/23/23 02:35 Blood Pressure 120/77 02/23/23 02:35 Pulse Oximetry 93 02/23/23 02:35 Oxygen Delivery Me thod Room Air 02/22/23 23:28 MDM - Abdominal Pain Medical Decision Making Vitals are stable. CBC not remarkable. BMP not remarkable. Urinalysis is contaminated and not positive for urinary tract infection. Lipase is 18. CRP is 20. CT is negative for acute intra-abdominal or pelvic pathology. She will be allowed discharge home. Lab Data 02/23/23 Unknown 02/23/23 Unknown Labs/Radiology: Radiology Impressions Abdomen/Pelvis CT 02/22/23 23:50 IMPRESSION: 1. Negative for acute abdominopelvic pathology. 2. Small nonobstructing right kidney stone. 3. Midline periumbilical ventral abdominal wall surgical changes without evidence of complication. Laboratory Results WBC 10.2 10^3/uL (4.0-10.0) H 02/23/23 Unknown RBC 4.84 10^6/uL (4.1-5.3) 02/23/23 Unknown Hgb 12.5 g/dL (11.5-15.3) 02/23/23 Unknown Hct 40.2 % (37.0-47.0) 02/23/23 Unknown MCV 83.1 fl (81-99) 02/23/23 Unknown MCH 25.8 pg (28.0-34.0) L 02/23/23 Unknown MCHC 31.1 g/dL (30.0-36.0) 02/23/23 Unknown RDW 14.8 % (12.1-15.1) 02/23/23 Unknown Plt Count 261 10^3/cmm (130-400) 02/23/23 Unknown MPV 12.5 fL (7.4-10.4) H 02/23/23 Unknown Neut % (Auto) 61.7 % 02/23/23 Unknown Lymph % (Auto) 26.4 % 02/23/23 Unknown [place] % (Auto) 6.6 % 02/23/23 Unknown Eos % (Auto) 4.3 % 02/23/23 Unknown Baso % (Auto) 0.6 % 02/23/23 Unknown Neut # (Auto) 6.27 10^3/uL (1.8-7.7) 02/23/23 Unknown Lymph # (Auto) 2.7 10^3/uL (0.8-4.8) 02/23/23 Unknown [place] # (Auto) 0.7 10^3/uL (0.2-0.9) 02/23/23 Unknown Eos # (Auto) 0.4 10^3/uL (0.0-0.8) 02/23/23 Unknown Baso # (Auto) 0.1 10^3/uL (0.0-0.1) 02/23/23 Unknown Nucleated RBC % (auto) 0 % 02/23/23 Unknown Nucleated RBCs # 0.0 /100WBC 02/23/23 Unknown Sodium 140 mmol/L (136-145) 02/23/23 Unknown Potassium 3.7 mmol/L (3.5-5.1) 02/23/23 Unknown Chloride 105 mmol/L (98-107) 02/23/23 Unknown Carbon Dioxide 26 mmol/L (22-29) 02/23/23 Unknown Anion Gap 12.7 (5-19) 02/23/23 Unknown BUN 13 mg/dL (6-20) 02/23/23 Unknown Creatinine 0.7 mg/dL (0.5-0.9) 02/23/23 Unknown GFR Calculation 93.2 mL/min (90-130) 02/23/23 Unknown Glucose 96 mg/dL (65-115) 02/23/23 Unknown Calculated Osmolality 290 mOsm/kg (285-295) 02/23/23 Unknown Calcium 9.1 mg/dL (8.5-10.5) 02/23/23 Unknown Total Bilirubin 0.5 mg/dL (0.15-1.2) 02/23/23 Unknown AST 18 U/L (0-32) 02/23/23 Unknown ALT 16 U/L (0-33) 02/23/23 Unknown Alkaline Phosphatase 102 U/L (35-105) 02/23/23 Unknown C-Reactive Protein 19.8 mg/L (0.0-4.9) H 02/23/23 Unknown Total Protein 6.8 g/dL (6.6-8.7) 02/23/23 Unknown Albumin 3.8 g/dL (3.5-5.2) 02/23/23 Unknown Globulin 3.0 g/dL (1.3-4.6) 02/23/23 Unknown Lipase 18 U/L (13-60) 02/23/23 Unknown HCG, Qual Negative (Negative) 02/23/23 Unknown Urine Color Yellow (Yellow) 02/23/23 01:45 Urine Appearance Cloudy (CLEAR) A 02/23/23 01:45 Urine pH 5 (5-7) 02/23/23 01:45 Ur Specific [place] 1.020 (1.005-1.030) 02/23/23 01:45 Urine Protein Neg (Negative) 02/23/23 01:45 Urine Glucose (UA) Norm (Normal) 02/23/23 01:45 Urine Ketones 1+ (Negative) H 02/23/23 01:45 Urine Blood 2+ (Negative) H 02/23/23 01:45 Urine Nitrate Negative (Negative) 02/23/23 01:45 Urine Bilirubin Neg (Negative) 02/23/23 01:45 Urine Urobilinogen Norm mg/dL (Negative) 02/23/23 01:45 Ur Leukocyte Esterase 1+ (Negative) H 02/23/23 01:45 Urine RBC 0-4 /hpf (0-2) H 02/23/23 01:45 Urine WBC 0-4 /hpf (0-5) H 02/23/23 01:45 Ur Squamous Epith Cells 10-15 /hpf (0-5) H 02/23/23 01:45 Amorphous Sediment Not Reportable 02/23/23 01:45 Urine Bacteria 2+ /hpf (NONE) H 02/23/23 01:45 Urine Mucus 1+ /hpf 02/23/23 01:45 Discharge Plan Discharge Patient Disposition: Home Clinical Impression: Acute flank pain Condition: Stable Prescriptions: No Action cetirizine [Zyrtec] 10 mg tablet 10 mg PO DAILY Qty: 30 2RF cyclobenzaprine 5 mg tablet 5 mg PO TID PRN (Reason: muscle spasm) Qty: 90 2RF hydroxyzine HCl 25 mg tablet 25 mg PO QID PRN (Reason: anxiety) Qty: 120 1RF albuterol sulfate [ProAir HFA] 90 mcg/actuation HFA aerosol inhaler 2 puff INHALATION Q6H PRN (Reason: Shortness Of Breath Or Wheezing) fluticasone propionate [Allergy Relief (fluticasone)] 50 mcg/actuation spray,suspension 2 spray INTRANASAL BID (DME) lancing device with lancets [Oxigeneuch GoNetYourself Lanc Device] Kit See Rx Instructions .ROUTE .MEDSUPPLY Qty: 1 0RF Rx Instructions: As directed tramadol 50 mg tablet 100 mg PO Q6H PRN (Reason: pain) Qty: 40 0RF ketoconazole 2 % shampoo 1 applic topical Q14D Qty: 120 6RF Rx Instructions: Lather into scalp 2-3 times weekly. Allowed to sit on scalp for 5 minutes before rinsing. triamcinolone acetonide 0.1 % ointment 1 applic topical BID Qty: 80 0RF Rx Instructions: Apply to affected area no more than 2 weeks/month. Not for use on face. clobetasol 0.05 % solution 1 applic topical DAILY Qty: 50 3RF Rx Instructions: Apply few drops to itchy areas of scalp as needed. pantoprazole [Protonix] 40 mg tablet,delayed release (DR/EC) 40 mg PO BID 42 Days Qty: 84 0RF buspirone 10 mg tablet 10 mg PO TID Qty: 90 0RF Flovent HFA 220 mcg/actuation HFA aerosol inhaler 2 puff INHALATION BID Qty: 12 1RF Rx Instructions: In [facility]'s (DME) OneTouch Ultra Blue Test Strip Strip See Rx Instructions .Route Qty: 120 2RF Rx Instructions: As directed ascorbic acid (vitamin C) [Vitamin C] 500 mg Tablet 250 mg PO DAILY ibuprofen [Advil] 200 mg Tablet 200 mg PO Q6H PRN (Reason: Pain) Hold Instructions: Resume on 01/30/23. vitamin B complex Tablet 1 tab PO DAILY montelukast 10 mg tablet 10 mg PO BEDTIME Rx Instructions: needs a new provider for refills tramadol 50 mg Tablet 50 mg PO Q6H PRN (Reason: Pain) Hold Instructions: Resume on 02/07/23. Colace 100 mg capsule 100 mg PO BID Qty: 14 0RF acetaminophen [Tylenol] 325 mg Tablet 325 mg PO QID PRN (Reason: pain) Discharge Orders: Discharge ED (Routine); Ordered 02/23/23 Ordered By: Mp Keane Referrals: Shane Umaña NP [Primary Care Provider] - Patient Instructions: Flank Pain (ED), Opioid Safety, Pain Management Activity Restrictions/Additional Instructions: Specific cause of your flank pain was not determined by laboratory or imaging this morning. Return for worsening pain, fever greater than 100, vomiting liquids or medications, pain with urination, other concerning symptoms. Coding Level of Care Code ED Body Liner for Jess Gamboa
[2023-02-23 00:08] VITALS: RESP 16; O2SAT 97
[2023-02-23] MEDS: HYDROmorphone 1 mg/mL INJ 1 mL IVP (00:08)
[2023-02-23] MEDS: ondansetron 2 mg/ML SDV 2 mL 4 MG IVP (00:09)
[2023-02-23 00:42] LABS: Basophils # 0.1 10^3/uL (0.0-0.1); Basophils % 0.6 %; Eosinophils # 0.4 10^3/uL (0.0-0.8); Eosinophils % 4.3 %; Hematocrit 40.2 % (37.0-47.0); Hemoglobin 12.5 g/dL (11.5-15.3); Lymphocytes # 2.7 10^3/uL (0.8-4.8); Lymphocytes % 26.4 %; Mean Corpuscular HGB Conc 31.1 g/dL (30.0-36.0); Mean Corpuscular Hemoglobin 25.8 pg (28.0-34.0); Mean Corpuscular Volume 83.1 fl (81-99); Mean Platelet Volume 12.5 fL (7.4-10.4); Monocytes # 0.7 10^3/uL (0.2-0.9); Monocytes % 6.6 %; Neutrophils # 6.27 10^3/uL (1.8-7.7); Neutrophils % 61.7 %; Nucleated Red Blood Cells % 0 %; Platelet Count 261 10^3/cmm (130-400); Red Blood Count 4.84 10^6/uL (4.1-5.3); Red Cell Distribution Width 14.8 % (12.1-15.1); White Blood Count 10.2 10^3/uL (4.0-10.0)
[2023-02-23 00:53] LABS: HCG, Serum Qual Negative (Negative)
[2023-02-23 01:04] LABS: Alanine Aminotransferase 16 U/L (0-33); Albumin Level 3.8 g/dL (3.5-5.2); Alkaline Phosphatase 102 U/L (35-105); Anion Gap 12.7 (5-19); Aspartate Amino Transferase 18 U/L (0-32); Blood Urea Nitrogen 13 mg/dL (6-20); C Reactive Protein 19.8 mg/L (0.0-4.9); Calcium 9.1 mg/dL (8.5-10.5); Carbon Dioxide 26 mmol/L (22-29); Chloride 105 mmol/L (98-107); Glomerular Filtration Rate 93.2 mL/min (90-130); Glucose 96 mg/dL (65-115); Lipase 18 U/L (13-60); Osmolality Calculated 290 mOsm/kg (285-295); Potassium 3.7 mmol/L (3.5-5.1); Sodium 140 mmol/L (136-145); Total Bilirubin 0.5 mg/dL (0.15-1.2); Total Protein 6.8 g/dL (6.6-8.7)
[2023-02-23 01:11] VITALS: BP 100/63; PULSE 75; RESP 16; O2SAT 94
[2023-02-23 01:56] LABS: Urine Appearance Cloudy (CLEAR); Urine Color Yellow (Yellow); pH Urine 5 (5-7)
[2023-02-23 01:57] LABS: Add Urine Microscopic? YES; Bilirubin Urine Neg (Negative); Blood Urine 2+ (Negative); Glucose Urine UA Norm (Normal); Ketones Urine 1+ (Negative); Leukocyte Esterase Urine 1+ (Negative); Nitrate Urine Negative (Negative); Protein Urine Neg (Negative); Urobilinogen Urine Norm (Negative)
[2023-02-23 01:59] LABS: Add Urine Culture? Yes; Bacteria Urine 2+ /hpf; Mucus Urine 1+ /hpf; RBC Urine 0-4 /hpf (0-2); WBC Urine 0-4 /hpf (0-5)
[2023-02-23 02:13] VITALS: BP 120/77; RESP 16; O2SAT 93
[2023-02-23 02:35] VITALS: BP 120/77; PULSE 75; RESP 16; TEMP 36.6; O2SAT 93
== END 2023-02-23 02:36 | disposition home or self-care (01) ==
PROVIDERS: Emergency Provider Emergency Medicine; PCP Nurse Practitioner Family
DX: R10.9 Unspecified abdominal pain (principal)
CPT/HCPCS: 74176; 80053; 81001; 83690; 84703; 85025; 86140; 87086; 96374; 96375; 99285; J1170; J2405

== ENCOUNTER → 2023-03-25 08:39 | Outpatient (BNVA) | payer MEDICAID, SELFPAY | PROVIDERS: PCP Nurse Practitioner Family; Visit Provider Nurse Practitioner Family | DX: L40.0 Psoriasis vulgaris (principal); B35.3 Tinea pedis; B35.1 Tinea unguium; D22.4 Melanocytic nevi of scalp and neck | CPT/HCPCS: 99214 ==

== ENCOUNTER 2023-06-10 20:46 | Emergency (ER) | payer MEDICAID, SELFPAY ==
[2023-06-10 20:55] VITALS: BP 145/110; PULSE 74; RESP 17; TEMP 36.6; O2SAT 98; BMI 42.9
--- NOTE | 2023-06-10 21:17 | XRR_ITS ---
PROCEDURE INFORMATION: Exam: XR Left Knee Exam date and time: 06/10/2023 9:23 PM Age: 37 years old Clinical indication: Pain; Knee; Left; Additional info: Fall pain TECHNIQUE: Imaging protocol: Radiologic exam of the left knee. Views: 3 views. COMPARISON: No relevant prior studies available. FINDINGS: Bones/joints: Normal. Soft tissues: Normal. XR/XR knee LT 3V* [id number] IMPRESSION: No acute findings.
--- NOTE | 2023-06-10 21:43 | W.ED.EXTPRO ---
HPI - Extremity Problem General: Chief complaint: Extremity Injury, Lower Stated complaint: left knee pain Time Seen by Provider: 06/10/23 21:30 History of Present Illness: 37-year-old female reports that she was moving from her refrigerator to her stove around 6 PM at suppertime. She stepped awkwardly and tweaked her left knee. She reports it felt like a very sharp stabbing pain. She has not been bearing weight since then, according to her report. X-rays of the knee were obtained in triage and I have reviewed them. They are negative for any fracture or dislocation. Patient reports she never saw any deformity, swelling, redness. She says that the location of the pain is generalized through the knee. No radiation into the hip or ankle. Review of Systems General: Reports: 10 or more systems reviewed and unremarkable except in HPI and below PFSH ED PFSH: Medical History Asthma Blood type O- Fibromyalgia Generalized anxiety disorder Client has been diagnosed with Generalized Anxiety Disorder, in that, she has been experiencing excessive anxiety and worry occurring more days than not, for at least 6 months, and about a number of events or activities related to daily tasks and performance. The Client has been having difficulty controlling worry, worrying about too many things at the same time, with symptoms of being restless or keyed up, being easily fatigued, difficulty concentrating, irritability, muscle tension, and significant sleep disturbances. These symptoms have caused significant distress and interfering with social, occupational, and other important areas of functioning. Major depressive disorder, recurrent severe without psychotic features Major depressive disorder, recurrent, moderate Following information retrieved/edited from Behavior Assessment Report, completed on 01/21/2023: She endorses depressed mood most days, diminished interest or pleasure in activities, significant weight loss or gain, insomnia or hypersomnia, psychomotor agitation, fatigue or loss of energy, feelings of worthlessness or excessive or inappropriate guilt, diminished ability to think or concentrate or indecisiveness. She is able to identify at least 2 months where she has not noticed depressive symptoms since the onset of her symptoms. Migraine without aura No pertinent past medical history neghx: htn,dm,thyroid,dvt/pe PCP: [facility] Obesity Post-traumatic stress disorder, chronic Client has been diagnosed with Post-Traumatic Stress Disorder (F43.10), based on the reported symptoms: History of trauma from childhood experiences, Intrusive symptoms include intrusive thoughts, nightmares, flashbacks, and emotional distress after exposure to traumatic reminders. Avoidance of stimuli includes trauma-related thoughts or feelings, trauma-related reminders. Negative alterations in cognition and mood include exaggerated blame of self and decreased interest in activities. Alterations in arousal and reactivity include irritability, hypervigilance, and difficulty concentrating. Symptoms have last for more than 1 month create distress or functional impairment and are not due to medication, substance use, or other illness. Psychiatric care Ventral hernia Surgical History History of abdominoplasty (2012) Pannus removal, jazlynmy mariana @ [facility] History of bilateral breast reduction surgery (2007) History of cholecystectomy History of hernia repair (~08/2020) Family History Mother Hypertension Diabetes Graves disease Grandmother Stroke Maternal Diabetes Paternal Father Hypercholesterolemia Grandfather Cancer Maternal Grandfather: Mesothelioma Grandfather Colon cancer Paternal---dx age unknown Denies family history of Ovarian cancer Heart disease Breast cancer Uterine cancer Social History Smoking and tobacco status: never smoked Substance/Drug Use: never Do you think of yourself as: Straight/Heterosexual Additional social history: Well-balanced diet No substance abuse. Physical Exam Const: COMMON NORMALS: no limitations, alert and well nourished EXAM LIMITATIONS: no altered mental status HENMT: COMMON NORMALS: normocephalic, atraumatic and external ears normal HEAD & SCALP: normocephalic and atraumatic EXTERNAL EAR: Yes external ears normal MOUTH: no muffled voice Resp: COMMON NORMALS: normal respiratory effort, No use of accessory muscles and clear to auscultation bilaterally AUSCULTATION: clear to auscultation bilaterally Cardio: COMMON NORMALS: regular rate and regular rhythm RATE: regular rate RHYTHM: regular rhythm Extremity: COMMON NORMALS: normal to inspection, full ROM, no joint enlargement, no calf tenderness and no pedal edema OTHER: Left hip, femur, tib-fib, ankle exams all unremarkable. Passive range of motion of the left knee is unremarkable. No bony tenderness is noted. She endorses tenderness in the medial and lateral joint lines. Stretching her LCL causes her some pain. The anterior and posterior drawer tests reveal good endpoints. Meniscal grind tests resulted in tenderness in the lateral joint line but not on the medial. There are no effusions. The patella is nontender and and in normal position. Quadricep tendon and patellar tendons are intact without any tenderness. Proximal fibular head is nontender. Neuro: COMMON NORMALS: moves all extremities, no focal motor deficits and no sensory deficits noted SENSORIUM/ORIENTATION: Yes alert SPEECH: speech normal Skin: COMMON NORMALS: no rashes or lesions noted, turgor normal and no jaundice GENERAL SKIN EXAM: no rashes or lesions noted and turgor normal Course Vital Signs: Vital signs: Vital Signs Temperature 97.8 F 06/10/23 20:55 Pulse Rate 74 06/10/23 20:55 Respiratory Rate 17 06/10/23 20:55 Blood Pressure 145/110 06/10/23 20:55 Pulse Oximetry 98 06/10/23 20:55 Oxygen Delivery Me thod Room Air 06/10/23 20:55 MDM - Extremity (Nontraumatic) Medical Decision Making Patient's mechanism and exam are not terribly remarkable. She has mild tenderness in the LCL of the lateral meniscus. There is no effusion, bruising, redness, swelling. Bony examination was unremarkable and x-rays were reviewed by me and do not show any fracture. She has good endpoints with passive range of motion and I do not suspect a tendon rupture or ligamentous rupture. Short period of immobilization followed by earlier range of motion and outpatient follow-up. XR interpretation done by ED provider, pending radiology final review Discharge Plan Discharge Patient Disposition: Home Clinical Impression: Knee LCL sprain Condition: Stable Prescriptions: No Action cetirizine [Zyrtec] 10 mg tablet 10 mg PO DAILY Qty: 30 2RF cyclobenzaprine 5 mg tablet 5 mg PO TID PRN (Reason: muscle spasm) Qty: 90 2RF hydroxyzine HCl 25 mg tablet 25 mg PO QID PRN (Reason: anxiety) Qty: 120 1RF albuterol sulfate [ProAir HFA] 90 mcg/actuation HFA aerosol inhaler 2 puff INHALATION Q6H PRN (Reason: Shortness Of Breath Or Wheezing) fluticasone propionate [Allergy Relief (fluticasone)] 50 mcg/actuation spray,suspension 2 spray INTRANASAL BID omeprazole 20 mg capsule,delayed release(DR/EC) 20 mg PO DAILY buspirone 10 mg tablet 10 mg PO TID Qty: 90 1RF Rx Instructions: Take one tablet by mouth morning, afternoon, and evening sertraline 20 mg/mL concentrate 50 mg PO DAILY Qty: 60 2RF Rx Instructions: Take 50 mg daily (2.5 ml) by mouth once daily ketoconazole 2 % shampoo 1 applic topical Q14D Qty: 120 6RF Rx Instructions: Lather into scalp 2-3 times weekly. Allowed to sit on scalp for 5 minutes before rinsing. triamcinolone acetonide 0.1 % ointment 1 applic topical BID Qty: 80 0RF Rx Instructions: Apply to affected area no more than 2 weeks/month. Not for use on face. clobetasol 0.05 % solution 1 applic topical DAILY Qty: 50 3RF Rx Instructions: Apply few drops to itchy areas of scalp as needed. Flovent HFA 220 mcg/actuation HFA aerosol inhaler 2 puff INHALATION BID Qty: 12 1RF Rx Instructions: In Cailin Friend absence's prazosin 1 mg capsule 1 mg PO .q hs Qty: 30 1RF Rx Instructions: Take one capsule daily at bedtime; hold for side effects or low blood pressure ascorbic acid (vitamin C) [Vitamin C] 500 mg Tablet 250 mg PO DAILY ibuprofen [Advil] 200 mg Tablet 200 mg PO Q6H PRN (Reason: Pain) Hold Instructions: Resume on 02/05/23. vitamin B complex Tablet 1 tab PO DAILY montelukast 10 mg tablet 10 mg PO BEDTIME Rx Instructions: needs a new provider for refills tramadol 50 mg Tablet 50 mg PO Q6H PRN (Reason: Pain) Hold Instructions: Resume on 02/07/23. acetaminophen [Tylenol] 325 mg Tablet 325 mg PO QID PRN (Reason: pain) Discharge Orders: Discharge ED (Routine); Ordered 06/10/23 Ordered By: Javier Gee Referrals: Shane Umaña NP [Primary Care Provider] - 7-10 days (left knee injury ) Discharge Activity: Increase activity as tolerated Patient Instructions: Knee Sprain (ED), Opioid Safety, Pain Management Activity Restrictions/Additional Instructions: 1. You may use the knee immobilizer for stability and to reduce pain for 5 days. However after 5 days you should not continue utilizing the knee immobilizer as it may result in weakening of the surrounding muscles or put you at increased risk of blood clot. Make sure that if you wear the knee immobilizer, you take it off a few times a day to do range of motion exercises and to pump your calf muscles to reduce the risk of blood clot. 2. Ice your knee for 20 minutes 3 times a day. 3. Make a follow-up appointment with your doctor for 7 to 10 days for repeat examination. Coding Level of Care Code ED Electric Frying Pan Repairer for Jess Gamboa
[2023-06-10] MEDS: naproxen 500 mg Tablet 250 MG PO (21:59)
[2023-06-10 22:06] VITALS: BP 145/110; PULSE 74; RESP 17; TEMP 36.6; O2SAT 98
== END 2023-06-10 22:07 | disposition home or self-care (01) ==
PROVIDERS: Emergency Provider Emergency Medicine; PCP Nurse Practitioner Family
DX: S83.422A Sprain of lateral collateral ligament of left knee, initial encounter (principal); X50.1XXA Overexertion from prolonged static or awkward postures, initial encounter
CPT/HCPCS: 29530; 73562; 99283; E0114

== ENCOUNTER 2023-06-26 04:12 | Emergency (ER) | payer MEDICAID, SELFPAY ==
[2023-06-26 04:13] VITALS: BP 160/71; PULSE 77; RESP 18; TEMP 36.6; O2SAT 95; BMI 68.6
--- NOTE | 2023-06-26 04:16 | W.ED.DENTAL ---
HPI - Dental/Oral General: Chief complaint: Dental/Oral Stated complaint: Tooth Pain Time Seen by Provider: 06/26/23 04:14 Source: patient and EMS Mode of arrival: EMS Limitations: no limitations History of Present Illness: 37-year-old female states she has had right sided dental pain over the last day. She rates her pain a 6 out of 10 she denies any fevers denies any difficulty swallowing denies any trismus she denies any worsening proving factors. Associated symptoms: Denies fever(s) Review of Systems Const: Denies: fever(s), chills, body aches or change in appetite ENMT: Reports: dental pain; Denies: throat pain Card: Denies: chest pain Resp: Denies: dyspnea GI: Denies: abdominal pain, nausea, vomiting or diarrhea Musc: Denies: neck pain or back pain Skin/Breast: Denies: rash Neuro: Denies: headache(s) PFSH ED PFSH: Medical History Asthma Blood type O- Fibromyalgia Generalized anxiety disorder Major depressive disorder, recurrent severe without psychotic features Major depressive disorder, recurrent, moderate Migraine without aura No pertinent past medical history neghx: htn,dm,thyroid,dvt/pe PCP: [facility] Obesity Post-traumatic stress disorder, chronic Psychiatric care Ventral hernia Surgical History History of abdominoplasty (2012) Pannus removal, tummy ozzyck @ [facility] History of bilateral breast reduction surgery (2007) History of cholecystectomy History of hernia repair (~08/2020) Family History Mother Hypertension Diabetes Graves disease Grandmother Stroke Maternal Diabetes Paternal Father Hypercholesterolemia Grandfather Cancer Maternal Grandfather: Mesothelioma Grandfather Colon cancer Paternal---dx age unknown Denies family history of Ovarian cancer Heart disease Breast cancer Uterine cancer Social History Smoking and tobacco status: never smoked Substance/Drug Use: never Do you think of yourself as: Straight/Heterosexual Additional social history: Well-balanced diet No substance abuse. Physical Exam Const: COMMON NORMALS: no acute distress and patient oriented x3 HENMT: COMMON NORMALS: normocephalic and atraumatic HEAD & SCALP: normocephalic and atraumatic OTHER: Dental caries noted tenderness over right lower molar no abscess or trismus Eye: COMMON NORMALS: conjunctivae normal CONJUNCTIVA: Yes conjunctivae normal Neck/C-Spine: COMMON NORMALS: supple Chest: COMMONS NORMALS: normal inspection of the chest Resp: COMMON NORMALS: normal respiratory effort Extremity: COMMON NORMALS: normal to inspection Neuro: COMMON NORMALS: patient oriented x3 Psych: COMMON NORMALS: mental status grossly normal Skin: COMMON NORMALS: no rashes or lesions noted GENERAL SKIN EXAM: no rashes or lesions noted MDM - Dental/Oral Medical Decision Making Patient presents with dental pain no trismus or abscess we will place her on antibiotics and Naprosyn she is to follow-up with dentist return if worsening Medical Records I reviewed the patient's medical records. No radiology studies performed this visit Discharge Plan Discharge Patient Disposition: Home Clinical Impression: Pain, dental Condition: Stable Prescriptions: New cephalexin 500 mg capsule 500 mg PO TID 7 Days Qty: 21 0RF naproxen [Naprosyn] 500 mg tablet 500 mg PO BID PRN (Reason: pain) Qty: 20 0RF No Action cetirizine [Zyrtec] 10 mg tablet 10 mg PO DAILY Qty: 30 2RF cyclobenzaprine 5 mg tablet 5 mg PO TID PRN (Reason: muscle spasm) Qty: 90 2RF hydroxyzine HCl 25 mg tablet 25 mg PO QID PRN (Reason: anxiety) Qty: 120 1RF albuterol sulfate [ProAir HFA] 90 mcg/actuation HFA aerosol inhaler 2 puff INHALATION Q6H PRN (Reason: Shortness Of Breath Or Wheezing) fluticasone propionate [Allergy Relief (fluticasone)] 50 mcg/actuation spray,suspension 2 spray INTRANASAL BID omeprazole 20 mg capsule,delayed release(DR/EC) 20 mg PO DAILY buspirone 15 mg tablet 15 mg PO BID Qty: 60 1RF Rx Instructions: Take one tablet by mouth every morning and evening sertraline 20 mg/mL concentrate 50 mg PO DAILY Qty: 60 1RF Rx Instructions: Take 50 mg daily (2.5 ml) by mouth once daily trazodone 100 mg tablet See Rx Instructions PO DAILY PRN (Reason: insomnia) Qty: 30 1RF Rx Instructions: Take 1/2 to one tablet daily at bedtime, if needed for insomnia prazosin 1 mg capsule 1 mg PO .q hs Qty: 30 1RF Rx Instructions: Take one capsule daily at bedtime; hold for side effects or low blood pressure ketoconazole 2 % shampoo 1 applic topical Q14D Qty: 120 6RF Rx Instructions: Lather into scalp 2-3 times weekly. Allowed to sit on scalp for 5 minutes before rinsing. triamcinolone acetonide 0.1 % ointment 1 applic topical BID Qty: 80 0RF Rx Instructions: Apply to affected area no more than 2 weeks/month. Not for use on face. clobetasol 0.05 % solution 1 applic topical DAILY Qty: 50 3RF Rx Instructions: Apply few drops to itchy areas of scalp as needed. Flovent HFA 220 mcg/actuation HFA aerosol inhaler 2 puff INHALATION BID Qty: 12 1RF Rx Instructions: In [facility]'s ascorbic acid (vitamin C) [Vitamin C] 500 mg Tablet 250 mg PO DAILY ibuprofen [Advil] 200 mg Tablet 200 mg PO Q6H PRN (Reason: Pain) Hold Instructions: Resume on 02/05/23. vitamin B complex Tablet 1 tab PO DAILY montelukast 10 mg tablet 10 mg PO BEDTIME Rx Instructions: needs a new provider for refills tramadol 50 mg Tablet 50 mg PO Q6H PRN (Reason: Pain) Hold Instructions: Resume on 02/07/23. acetaminophen [Tylenol] 325 mg Tablet 325 mg PO QID PRN (Reason: pain) Discharge Orders: Discharge ED (Routine); Ordered 06/26/23 Ordered By: Gia Barkley Referrals: Shane Umaña NP [Primary Care Provider] - Discharge Diet: Advance as tolerated Discharge Activity: Resume usual activity Patient Instructions: Toothache (ED) Coding Level of Care Code ED Guidance Secretary for Jess Gamboa
[2023-06-26 04:21] VITALS: BP 160/71; PULSE 76; RESP 18; O2SAT 96
[2023-06-26] MEDS: HYDROcodone-acetaminophen 7.5-325 mg Tablet 1 TAB PO (04:23)
[2023-06-26] MEDS: cephALEXin 500 mg Capsule PO (04:23)
== END 2023-06-26 04:33 | disposition home or self-care (01) ==
PROVIDERS: Emergency Provider Emergency Medicine; PCP Nurse Practitioner Family
DX: K08.89 Other specified disorders of teeth and supporting structures (principal)
CPT/HCPCS: 99283

== ENCOUNTER 2023-07-06 15:16 | Emergency (ER) | payer MEDICAID, SELFPAY ==
[2023-07-06 15:28] VITALS: BP 126/79; PULSE 91; RESP 16; TEMP 36.5; O2SAT 98; BMI 42.9
--- NOTE | 2023-07-06 15:46 | ED_ITS ---
HPI - Extremity Problem General: Chief complaint: Extremity Problem,Nontraumatic Stated complaint: knee pain Time Seen by Provider: 07/06/23 15:21 Source: patient Mode of arrival: EMS Limitations: no limitations History of Present Illness: Patient is a 37-year-old female presents to ED today with complaint of bilateral knee pain. She arrives via EMS. Patient states about a month ago she was seen here in the ED for left knee pain and had x-rays performed which were reportedly normal. She was told it could be her meniscus. She states she has not followed up with her primary care provider but does have an appointment with them on 07/21. Patient feels like she has been overcompensating now has right knee pain. She has no acute injury or trauma to the right knee. She has not noticed any swelling to either joint or or overlying warmth. Patient has been ambulating with the help of a cane. Patient states she normally takes pain medication from her pain management doctor for fibromyalgia. MD Complaint: joint pain Onset (ago): week(s) Pain Consistency: constant Location: left, right and knee Radiation: none Relieving factors: immobilization Exacerbating factors: weight bearing and walking Associated symptoms: Reports no associated symptoms; Deny chest pain Review of Systems Card: Denies: chest pain Resp: Denies: dyspnea Musc: Reports: joint pain; Denies: neck pain, back pain, extremity pain, extremity swelling, joint sw elling, joint redness, joint warmth or limited range of motion Neuro: Denies: numbness in extremities, weakness in extremities or sensory changes [facility] ED PFSH: Medical History Asthma Blood type O- Fibromyalgia Generalized anxiety disorder Major depressive disorder, recurrent severe without psychotic features Major depressive disorder, recurrent, moderate Migraine without aura No pertinent past medical history neghx: htn,dm,thyroid,dvt/pe PCP: [facility] Obesity Post-traumatic stress disorder, chronic Psychiatric care Ventral hernia Surgical History History of abdominoplasty (2012) Pannus removal, karen peña @ [facility] History of bilateral breast reduction surgery (2007) History of cholecystectomy History of hernia repair (~08/2020) Family History Mother Hypertension Diabetes Graves disease Grandmother Stroke Maternal Diabetes Paternal Father Hypercholesterolemia Grandfather Cancer Maternal Grandfather: Mesothelioma Grandfather Colon cancer Paternal---dx age unknown Denies family history of Ovarian cancer Heart disease Breast cancer Uterine cancer Social History Smoking and tobacco/nicotine status: never used tobacco/nicotine Substance/Drug Use: never Additional social history: Well-balanced diet No substance abuse. Do you think of yourself as: Straight/Heterosexual Physical Exam Const: COMMON NORMALS: no acute distress, patient oriented x3, no limitations and alert GENERAL APPEARANCE: cooperative NUTRITIONAL APPEARANCE: obese Extremity: COMMON NORMALS: normal to inspection, full ROM, capillary refill normal, no joint enlargement, no clubbing, cyanosis or edema, no calf tenderness and no pedal edema GENERAL: Yes normal exam except as noted RIGHT LOWER EXTREMITY: Yes knee joint LEFT LOWER EXTREMITY: Yes knee joint OTHER: no swelling, erythema, or warmth appreciated to either joint; neither joint exhibits any form of joint laxity or bony deformities; bilateral LEs are neurovascularly intact Neuro: COMMON NORMALS: patient oriented x3, moves all extremities, no focal motor deficits and no sensory deficits noted SENSORIUM/ORIENTATION: Yes alert Skin: COMMON NORMALS: no rashes or lesions noted GENERAL SKIN EXAM: no rashes or lesions noted TRAUMA: no lacerations or abrasions Course Vital Signs: Vital signs: Vital Signs Temperature 97.7 F 07/06/23 15:28 Pulse Rate 91 07/06/23 16:14 Respiratory Rate 16 07/06/23 16:14 Blood Pressure 126/79 07/06/23 16:14 Pulse Oximetry 98 07/06/23 16:14 Oxygen Delivery Me thod Room Air 07/06/23 15:28 MDM - Extremity (Nontraumatic) Medical Decision Making Patient has not had any new injury or trauma to either knee. This point I do not see any indication for emergent x-rays of either joint. She had the left knee films obtained on her last ED visit. She states she has an upcoming appointment with primary care on 07/21 that she can follow-up with. She is requesting OCTAVIA wraps to bilateral joints. No radiology studies performed this visit Discharge Plan Discharge Patient Disposition: Home Clinical Impression: Acute bilateral knee pain Condition: Stable Prescriptions: New Medrol (Jose) 4 mg tablets,dose pack See Rx Instructions .ROUTE .COMPLEX Qty: 21 0RF Rx Instructions: orally per package directions Continued Naprosyn 500 mg tablet 500 mg PO BID PRN (Reason: pain) Qty: 20 0RF No Action cetirizine [Zyrtec] 10 mg tablet 10 mg PO DAILY Qty: 30 2RF cyclobenzaprine 5 mg tablet 5 mg PO TID PRN (Reason: muscle spasm) Qty: 90 2RF hydroxyzine HCl 25 mg tablet 25 mg PO QID PRN (Reason: anxiety) Qty: 120 1RF albuterol sulfate [ProAir HFA] 90 mcg/actuation HFA aerosol inhaler 2 puff INHALATION Q6H PRN (Reason: Shortness Of Breath Or Wheezing) fluticasone propionate [Allergy Relief (fluticasone)] 50 mcg/actuation spray,suspension 2 spray INTRANASAL BID omeprazole 20 mg capsule,delayed release(DR/EC) 20 mg PO DAILY buspirone 15 mg tablet 15 mg PO BID Qty: 60 1RF Rx Instructions: Take one tablet by mouth every morning and evening sertraline 20 mg/mL concentrate 50 mg PO DAILY Qty: 60 1RF Rx Instructions: Take 50 mg daily (2.5 ml) by mouth once daily trazodone 100 mg tablet See Rx Instructions PO DAILY PRN (Reason: insomnia) Qty: 30 1RF Rx Instructions: Take 1/2 to one tablet daily at bedtime, if needed for insomnia prazosin 1 mg capsule 1 mg PO .q hs Qty: 30 1RF Rx Instructions: Take one capsule daily at bedtime; hold for side effects or low blood pressure ketoconazole 2 % shampoo 1 applic topical Q14D Qty: 120 6RF Rx Instructions: Lather into scalp 2-3 times weekly. Allowed to sit on scalp for 5 minutes before rinsing. triamcinolone acetonide 0.1 % ointment 1 applic topical BID Qty: 80 0RF Rx Instructions: Apply to affected area no more than 2 weeks/month. Not for use on face. clobetasol 0.05 % solution 1 applic topical DAILY Qty: 50 3RF Rx Instructions: Apply few drops to itchy areas of scalp as needed. Flovent HFA 220 mcg/actuation HFA aerosol inhaler 2 puff INHALATION BID Qty: 12 1RF Rx Instructions: In Cailin perdomo's ascorbic acid (vitamin C) [Vitamin C] 500 mg Tablet 250 mg PO DAILY ibuprofen [Advil] 200 mg Tablet 200 mg PO Q6H PRN (Reason: Pain) Hold Instructions: Resume on 01/30/23. vitamin B complex Tablet 1 tab PO DAILY montelukast 10 mg tablet 10 mg PO BEDTIME Rx Instructions: needs a new provider for refills tramadol 50 mg Tablet 50 mg PO Q6H PRN (Reason: Pain) Hold Instructions: Resume on 02/07/23. acetaminophen [Tylenol] 325 mg Tablet 325 mg PO QID PRN (Reason: pain) Discharge Orders: Discharge ED (Routine); Ordered 07/06/23 Ordered By: Stacia Ivey Referrals: Shane Umaña NP [Primary Care Provider] - Coding Level of Care Code ED Clipper Machine Operator for Jess Gamboa
[2023-07-06 16:14] VITALS: BP 126/79; PULSE 91; RESP 16; O2SAT 98
== END 2023-07-06 16:16 | disposition home or self-care (01) ==
PROVIDERS: Emergency Provider Physician Assistant; PCP Nurse Practitioner Family
DX: M25.561 Pain in right knee (principal); M25.562 Pain in left knee
CPT/HCPCS: 99283

== ENCOUNTER → 2023-07-20 11:14 | Outpatient (BNVA) | payer OTHER, SELFPAY | PROVIDERS: PCP Nurse Practitioner Family; Visit Provider Nurse Practitioner Psychiatric/Mental Health | DX: F41.1 Generalized anxiety disorder (principal) | CPT/HCPCS: 80061; 83036 ==

== ENCOUNTER → 2023-07-27 09:36 | Outpatient (BNVA) | payer MEDICAID, SELFPAY | PROVIDERS: PCP Nurse Practitioner Family; Visit Provider Nurse Practitioner Family | DX: L40.0 Psoriasis vulgaris (principal); B35.3 Tinea pedis; B35.1 Tinea unguium; D22.5 Melanocytic nevi of trunk | CPT/HCPCS: 99214 ==

== ENCOUNTER 2023-08-17 00:42 | Emergency (ER) | payer MEDICAID, SELFPAY ==
[2023-08-03 10:16] VITALS: BP 133/79; BMI 42.8
--- NOTE | 2023-08-17 00:45 | XRR_ITS ---
PROCEDURE INFORMATION: Exam: XR Chest Exam date and time: 08/17/2023 1:12 AM Age: 37 years old Clinical indication: Chest pressure; Patient HX: C/O chest pain; Additional info: Cp TECHNIQUE: Imaging protocol: Radiologic exam of the chest. Views: 1 view. COMPARISON: CR XR chest 1V portable [id number] 06/10/2022 10:22 PM FINDINGS: Lungs: Unremarkable. No consolidation. Pleural spaces: Unremarkable. No pleural effusion. No pneumothorax. Heart/Mediastinum: Unremarkable. No cardiomegaly. Bones/joints: Unremarkable. XR/XR chest 1V portable [id number] IMPRESSION: No acute findings.
--- NOTE | 2023-08-17 00:45 | ECG_ITS ---
[facility] Test Date: 2023-08-17 Pat Name: Sandra Florez Department: Room: Gender: Female Timber Inspector: : 1985 Requested By: Gia Barkley Order Number: [id number] Spencer MD: Dorian Kerns M.D. Measurements Intervals [place] Rate: 69 P: 48 IA: 128 QRS: 55 QRSD: 92 T: 42 QT: 404 QTc: 434 Interpretive Statements SINUS RHYTHM Normal EKG Compared to ECG 02/02/2019 16:43:16 T-wave abnormality no longer present Electronically Signed On 08-17-2023 9:11:14 LITHOGRAPHIC CAMERA OPERATOR by Dorian Kerns M.D. [id number]
[2023-08-17 00:57] VITALS: BP 118/74; PULSE 69; RESP 18; TEMP 36.7; O2SAT 100; BMI 42.7
[2023-08-17 01:07] LABS: Basophils % 0.4 %; Eosinophils # 0.2 10^3/uL (0.0-0.8); Eosinophils % 1.7 %; Lymphocytes # 2.2 10^3/uL (0.8-4.8); Lymphocytes % 24.7 %; Mean Corpuscular HGB Conc 32.4 g/dL (30-55); Mean Corpuscular Volume 83.3 fl (85-98); Mean Platelet Volume 12.2 fL (7.4-10.4); Monocytes # 0.5 10^3/uL (0.2-0.9); Monocytes % 5.6 %; Neutrophils # 6.07 10^3/uL (1.8-7.7); Neutrophils % 67.3 %; Nucleated Red Blood Cells % 0 %; Platelet Count 244 10^3/cmm (157-399); Red Blood Count 4.56 10^6/uL (3.85-5.65); Red Cell Distribution Width 14.6 % (12.1-15.1); White Blood Count 9.03 10^3/uL (3.29-11.43)
[2023-08-17 01:08] VITALS: BP 118/74; PULSE 69; RESP 18; O2SAT 98
[2023-08-17 01:18] LABS: INR 0.92 (0.8-1.2)
[2023-08-17 01:29] LABS: Troponin(5th) Baseline < 6 ng/L (0-10)
--- NOTE | 2023-08-17 01:40 | ED_ITS ---
HPI - Chest Pain General: Chief Complaint: Chest Pain Stated Complaint: CP Time Seen by Provider: 08/17/23 00:45 Source: patient Mode of arrival: ambulatory Limitations: no limitations History of Present Illness: 37-year-old female who states she started having chest pain 11:30 PM. States its been a dull aching pain she rates it a 4 out of 10 currently she denies any nausea denies any diaphoresis she denies any shortness of breath. She does have a history of GERD no history of heart disease. She denies any cough or fever Associated symptoms: Deny abdominal pain, dyspnea, fever(s), nausea or vomiting Review of Systems Const: Denies: fever(s), chills, body aches or change in appetite Eyes: Denies: blurry vision or eye discomfort ENMT: Denies: throat pain or dental pain Card: Reports: chest pain Resp: Denies: dyspnea GI: Denies: abdominal pain, nausea, vomiting or diarrhea : Denies: dysuria Musc: Denies: neck pain or back pain Skin/Breast: Denies: rash PFSH ED PFSH: Medical History Asthma Blood type O- Fibromyalgia Generalized anxiety disorder Major depressive disorder, recurrent severe without psychotic features Major depressive disorder, recurrent, moderate Migraine without aura No pertinent past medical history neghx: htn,dm,thyroid,dvt/pe PCP: [facility] Obesity Post-traumatic stress disorder, chronic Psychiatric care Ventral hernia Surgical History History of abdominoplasty (2012) Pannus removal, karen peña @ [facility] History of bilateral breast reduction surgery (2007) History of cholecystectomy History of hernia repair (~08/2020) Family History Mother Hypertension Diabetes Graves disease Grandmother Stroke Maternal Diabetes Paternal Father Hypercholesterolemia Grandfather Cancer Maternal Grandfather: Mesothelioma Grandfather Colon cancer Paternal---dx age unknown Denies family history of Ovarian cancer Heart disease Breast cancer Uterine cancer Social History Smoking and tobacco/nicotine status: never used tobacco/nicotine Substance/Drug Use: never Additional social history: Well-balanced diet No substance abuse. Do you think of yourself as: Straight/Heterosexual Female Reproductive History: Date of last menstrual period: 08/01/23 Physical Exam Const: COMMON NORMALS: no acute distress, patient oriented x3 and healthy ap pearing HENMT: COMMON NORMALS: normocephalic and atraumatic HEAD & SCALP: normocephalic and atraumatic Eye: COMMON NORMALS: Equal, round and reactive pupils present and EOMs intact bilaterally PUPIL: Yes Equal, round and reactive pupils present Neck/C-Spine: COMMON NORMALS: full ROM and supple Chest: COMMONS NORMALS: normal inspection of the chest and normal palpation of entire chest wall Resp: COMMON NORMALS: normal respiratory effort, No retractions, No use of accessory muscles and clear to auscultation bilaterally AUSCULTATION: clear to auscultation bilaterally Cardio: COMMON NORMALS: regular rate, regular rhythm and No murmurs present (Cardio) RATE: regular rate RHYTHM: regular rhythm GI: COMMON NORMALS: Normal to inspection, nondistended, normoactive bowel sounds present, Soft to palpation, non-tender and no masses PALPATION: Yes Soft to palpation Extremity: COMMON NORMALS: normal to inspection and full ROM Neuro: COMMON NORMALS: patient oriented x3, moves all extremities and no focal motor deficits Psych: COMMON NORMALS: mental status grossly normal, Normal thought process pr esent and cooperative THOUGHT PROCESS: Normal thought process present Skin: COMMON NORMALS: no rashes or lesions noted and no wounds GENERAL SKIN EXAM: no rashes or lesions noted Course Vital Signs: Vital signs: Vital Signs Temperature 98.1 F 08/17/23 00:57 Pulse Rate 69 08/17/23 01:08 Respiratory Rate 18 08/17/23 01:08 Blood Pressure 118/74 08/17/23 01:08 Pulse Oximetry 98 08/17/23 01:08 Oxygen Delivery Me thod Room Air 08/17/23 01:08 MDM - Chest Pain Medical Decision Making Patient presents here with chest pain atypical in nature initial repeat troponins are normal x-ray is normal she is stable for discharge she is to follow-up with PCP and return if worsening. Medical Records I reviewed the patient's medical records. Lab Data I reviewed the patient's lab results. 08/17/23 00:28 08/17/23 01:37 Radiology Impressions Chest X-Ray 08/17/23 00:45 IMPRESSION: No acute findings. Laboratory Results WBC 9.03 10^3/uL (3.29-11.43) 08/17/23 00: RBC 4.56 10^6/uL (3.85-5.65) 08/17/23 00: Hgb 12.30 g/dL (11.27-16.99) 08/17/23: Hct 38.0 % (36-47) 08/17/23: MCV 83.3 fl (85-98) L 08/17/23: MCH 27.0 pg (27-33) 08/17/23 00: MCHC 32.4 g/dL (30-55) 08/17/23 00: RDW 14.6 % (12.1-15.1) 08/17/23 00: Plt Count 244 10^3/cmm (157-399) 08/17/23 00: MPV 12.2 fL (7.4-10.4) H 08/17/23 00: Neut % (Auto) 67.3 % 08/17/23 00: Lymph % (Auto) 24.7 % 08/17/23 00: [place] % (Auto) 5.6 % 08/17/23 00:28 Eos % (Auto) 1.7 % 08/17/23 00: Baso % (Auto) 0.4 % 08/17/23 00: Neut # (Auto) 6.07 10^3/uL (1.8-7.7) 08/17/23 00: Lymph # (Auto) 2.2 10^3/uL (0.8-4.8) 08/17/23 00:28 [place] # (Auto) 0.5 10^3/uL (0.2-0.9) 08/17/23 00: Eos # (Auto) 0.2 10^3/uL (0.0-0.8) 08/17/23 00: Baso # (Auto) 0.0 10^3/uL (0.0-0.1) 08/17/23 00: Nucleated RBC % (auto) 0 % 08/17/23 00:28 Nucleated RBCs # 0.0 /100WBC 08/17/23 00:28 PT 12.70 SECONDS (12.1-14.9) 08/17/23 00:28 INR 0.92 (0.8-1.2) 08/17/23 00:28 Sodium 141 mmol/L (136-145) 08/17/23 01:37 Potassium 3.9 mmol/L (3.5-5.1) 08/17/23 01:37 Chloride 106 mmol/L (98-107) 08/17/23 01:37 Carbon Dioxide 27 mmol/L (22-29) 08/17/23 01:37 Anion Gap 11.9 (5-19) 08/17/23 01:37 BUN 9 mg/dL (6-20) 08/17/23 01:37 Creatinine 0.9 mg/dL (0.5-0.9) 08/17/23 01:37 GFR Calculation 69.7 mL/min (90-130) L 08/17/23 01:37 Glucose 126 mg/dL (65-115) H 08/17/23 01:37 Calculated Osmolality 292 mOsm/kg (285-295) 08/17/23 01:37 Calcium 8.9 mg/dL (8.5-10.5) 08/17/23 01:37 Total Bilirubin 0.4 mg/dL (0.15-1.2) 08/17/23 01:37 AST 11 U/L (0-32) 08/17/23 01:37 ALT 12 U/L (0-33) 08/17/23 01:37 Alkaline Phosphatase 126 U/L (35-105) H 08/17/23 01:37 Troponin T Baseline < 6 ng/L (0-10) 08/17/23 00:28 Troponin T 120 Minute 6.00 ng/L (0-10) 08/17/23 02:23 Total Protein 6.4 g/dL (6.6-8.7) L 08/17/23 01:37 Albumin 3.5 g/dL (3.5-5.2) 08/17/23 01:37 Globulin 2.9 g/dL (1.3-4.6) 08/17/23 01:37 Lipase 14 U/L (13-60) 08/17/23 01:37 All radiology interpretation(s) finalized by discharge EKG Data EKG 1: I personally reviewed and interpreted this EKG as follows: EKG interpretation date: 08/17/23 EKG interpretation time: 01:11 Interpretation: nsr hr [address] or t wave abnormalities qrs 92 qtc 423 Discharge Plan Discharge Patient Disposition: Home Clinical Impression: Chest pain Condition: Stable Prescriptions: No Action cetirizine [Zyrtec] 10 mg tablet 10 mg PO DAILY Qty: 30 2RF cyclobenzaprine 5 mg tablet 5 mg PO TID PRN (Reason: muscle spasm) Qty: 90 2RF hydroxyzine HCl 25 mg tablet 25 mg PO QID PRN (Reason: anxiety) Qty: 120 1RF albuterol sulfate [ProAir HFA] 90 mcg/actuation HFA aerosol inhaler 2 puff INHALATION Q6H PRN (Reason: Shortness Of Breath Or Wheezing) fluticasone propionate [Allergy Relief (fluticasone)] 50 mcg/actuation spray,suspension 2 spray INTRANASAL BID omeprazole 20 mg capsule,delayed release(DR/EC) 20 mg PO DAILY buspirone 15 mg tablet 15 mg PO BID Qty: 60 1RF Rx Instructions: Take one tablet by mouth every morning and evening sertraline 20 mg/mL concentrate 50 mg PO DAILY Qty: 60 1RF Rx Instructions: Take 50 mg daily (2.5 ml) by mouth once daily trazodone 100 mg tablet See Rx Instructions PO DAILY PRN (Reason: insomnia) Qty: 30 1RF Rx Instructions: Take 1/2 to one tablet daily at bedtime, if needed for insomnia prazosin 1 mg capsule 1 mg PO .q hs Qty: 30 1RF Rx Instructions: Take one capsule daily at bedtime; hold for side effects or low blood pressure ketoconazole 2 % shampoo 1 applic topical Q14D Qty: 120 6RF Rx Instructions: Lather into scalp 2-3 times weekly. Allowed to sit on scalp for 5 minutes before rinsing. triamcinolone acetonide 0.1 % ointment 1 applic topical BID Qty: 80 0RF Rx Instructions: Apply to affected area no more than 2 weeks/month. Not for use on face. clobetasol 0.05 % solution 1 applic topical DAILY Qty: 50 3RF Rx Instructions: Apply few drops to itchy areas of scalp as needed. Flovent HFA 220 mcg/actuation HFA aerosol inhaler 2 puff INHALATION BID Qty: 12 1RF Rx Instructions: In Cailin perdomo's ascorbic acid (vitamin C) [Vitamin C] 500 mg Tablet 250 mg PO DAILY ibuprofen [Advil] 200 mg Tablet 200 mg PO Q6H PRN (Reason: Pain) Hold Instructions: Resume on 02/05/23. vitamin B complex Tablet 1 tab PO DAILY montelukast 10 mg tablet 10 mg PO BEDTIME Rx Instructions: needs a new provider for refills tramadol 50 mg Tablet 50 mg PO Q6H PRN (Reason: Pain) Hold Instructions: Resume on 02/07/23. acetaminophen [Tylenol] 325 mg Tablet 325 mg PO QID PRN (Reason: pain) Medrol (Jose) 4 mg tablets,dose pack See Rx Instructions .ROUTE .COMPLEX Qty: 21 0RF Rx Instructions: orally per package directions Naprosyn 500 mg tablet 500 mg PO BID PRN (Reason: pain) Qty: 20 0RF Discharge Orders: Discharge ED (Routine); Ordered 08/17/23 Ordered By: Gia Barkley Referrals: Shane Umaña NP [Primary Care Provider] - 1-3 days Discharge Diet: Advance as tolerated Discharge Activity: Resume usual activity Patient Instructions: Chest Pain (ED) Coding Level of Care Code ED Civil Technician for Jess Gamboa
[2023-08-17 02:04] LABS: Alanine Aminotransferase 12 U/L (0-33); Albumin Level 3.5 g/dL (3.5-5.2); Alkaline Phosphatase 126 U/L (35-105); Anion Gap 11.9 (5-19); Aspartate Amino Transferase 11 U/L (0-32); Blood Urea Nitrogen 9 mg/dL (6-20); Calcium 8.9 mg/dL (8.5-10.5); Carbon Dioxide 27 mmol/L (22-29); Chloride 106 mmol/L (98-107); Globulin 2.9 g/dL (1.3-4.6); Glomerular Filtration Rate 69.7 mL/min (90-130); Glucose 126 mg/dL (65-115); Lipase 14 U/L (13-60); Osmolality Calculated 292 mOsm/kg (285-295); Potassium 3.9 mmol/L (3.5-5.1); Sodium 141 mmol/L (136-145); Total Bilirubin 0.4 mg/dL (0.15-1.2); Total Protein 6.4 g/dL (6.6-8.7)
--- NOTE | 2023-08-17 02:45 | ECG_ITS ---
[facility] Test Date: 2023-08-17 Pat Name: Sandra Florez Department: Room: Gender: Female Turn Down Man: : 1985 Requested By: Gia Barkley Order Number: [id number] Spencer MD: Dorian Kerns M.D. Measurements Intervals [place] Rate: 56 P: 53 OK: 139 QRS: 59 QRSD: 88 T: 46 QT: 432 QTc: 419 Interpretive Statements SINUS BRADYCARDIA Otherwise normal EKG Compared to ECG 08/17/2023 01:11:08 Sinus rhythm no longer present Electronically Signed On 08-17-2023 9:18:25 MONORAIL HELPER by Dorian Kerns M.D. [id number]
[2023-08-17 03:13] LABS: Troponin 5 2HR Delta 0.00001 ABS# (0-10)
[2023-08-17 03:45] VITALS: PULSE 84; RESP 16; O2SAT 96
== END 2023-08-17 03:41 | disposition home or self-care (01) ==
PROVIDERS: Emergency Provider Emergency Medicine; PCP Nurse Practitioner Family
DX: R07.9 Chest pain, unspecified (principal)
CPT/HCPCS: 36415; 71045; 80053; 83690; 84484; 85025; 85610; 93005; 93010; 99285

== ENCOUNTER 2023-08-22 21:51 | Emergency (ER) | payer MEDICAID, SELFPAY ==
[2023-08-03 10:16] VITALS: BP 133/79; BMI 42.8
[2023-08-22 21:52] VITALS: BP 135/90; PULSE 95; RESP 18; TEMP 36.7; O2SAT 98; BMI 42.9
--- NOTE | 2023-08-22 22:29 | ED_ITS ---
HPI - Allergic Reaction General: Chief complaint: Allergic Reaction Stated complaint: congestion Time Seen by Provider: 08/22/23 22:27 History of Present Illness: HPI narrative: 37-year-old female comes in today with c omplaints of drainage in the back of her throat after eating dairy 2 days ago. Patient appears in no acute distress. Respirations are even. Patient appears in no pain. Patient appears nontoxic. Patient has a history of mental health disorder, allergic rhinitis, and asthma. Review of Systems General: Reports: 10 or more systems reviewed and unremarkable except in HPI and below ENMT: Reports: nasal discharge Resp: Reports: wheezing PFSH ED PFSH: Medical History Asthma Blood type O- Fibromyalgia Generalized anxiety disorder Major depressive disorder, recurrent severe without psychotic features Major depressive disorder, recurrent, moderate Migraine without aura No pertinent past medical history neghx: htn,dm,thyroid,dvt/pe PCP: [facility] Obesity Post-traumatic stress disorder, chronic Psychiatric care Ventral hernia Surgical History History of abdominoplasty (2012) Pannus removal, tummy tuck @ [facility] History of bilateral breast reduction surgery (2007) History of cholecystectomy History of hernia repair (~08/2020) Family History Mother Hypertension Diabetes Graves disease Grandmother Stroke Maternal Diabetes Paternal Father Hypercholesterolemia Grandfather Cancer Maternal Grandfather: Mesothelioma Grandfather Colon cancer Paternal---dx age unknown Denies family history of Ovarian cancer Heart disease Breast cancer Uterine cancer Social History Smoking and tobacco/nicotine status: never used tobacco/nicotine Substance/Drug Use: never Additional social history: Well-balanced diet No substance abuse. Do you think of yourself as: Straight/Heterosexual Female Reproductive History: Date of last menstrual period: 08/01/23 Physical Exam 2 Const: COMMON NORMALS: alert HENMT: COMMON NORMALS: normocephalic HEAD & SCALP: normocephalic NOSE: Nasal discharge present Neck/C-Spine: COMMON NORMALS: full ROM Resp: COMMON NORMALS: normal respiratory effort and clear to auscultation bilaterally AUSCULTATION: clear to auscultation bilaterally Cardio: COMMON NORMALS: regular rate and regular rhythm RATE: regular rate RHYTHM: regular rhythm Extremity: COMMON NORMALS: normal to inspection Neuro: SENSORIUM/ORIENTATION: Yes alert Skin: COMMON NORMALS: turgor normal GENERAL SKIN EXAM: turgor normal Course Vital Signs: Vital signs: Vital Signs Temperature 98.0 F 08/22/23 21:52 Pulse Rate 90 08/22/23 22:47 Respiratory Rate 16 08/22/23 22:47 Blood Pressure 135/90 08/22/23 21:52 Pulse Oximetry 96 08/22/23 22:47 Oxygen Delivery Me thod Room Air 08/22/23 21:52 MDM - Allergic Reaction Medical Decision Making Patient comes in today with complaints of nasal congestion and postnasal drip since being exposed to dairy 2 days ago. Patient also reported increase in wheezing. On exam lungs are clear to auscultation. Abdomen soft nontender. Skin is warm and dry. Normal turgor. Vital signs are normal. Differential diagnosis includes but not limited to postnasal drip, viral syndrome, rhinosinusitis, malingering, exacerbation of asthma. No serious illnesses noted. Reviewed exam with patient with recommendations for treatment and follow-up. Patient was given a loading dose of dexamethasone and recommended to continue for routine care. Patient stated understanding and agreed to plan. No radiology studies performed this visit Discharge Plan Discharge Patient Disposition: Home Clinical Impression: PND (post-nasal drip), Dairy allergy Condition: Stable Prescriptions: No Action cetirizine [Zyrtec] 10 mg tablet 10 mg PO DAILY Qty: 30 2RF cyclobenzaprine 5 mg tablet 5 mg PO TID PRN (Reason: muscle spasm) Qty: 90 2RF hydroxyzine HCl 25 mg tablet 25 mg PO QID PRN (Reason: anxiety) Qty: 120 1RF albuterol sulfate [ProAir HFA] 90 mcg/actuation HFA aerosol inhaler 2 puff INHALATION Q6H PRN (Reason: Shortness Of Breath Or Wheezing) fluticasone propionate [Allergy Relief (fluticasone)] 50 mcg/actuation spray,suspension 2 spray INTRANASAL BID omeprazole 20 mg capsule,delayed release(DR/EC) 20 mg PO DAILY ketoconazole 2 % shampoo 1 applic topical Q14D Qty: 120 6RF Rx Instructions: Lather into scalp 2-3 times weekly. Allowed to sit on scalp for 5 minutes before rinsing. triamcinolone acetonide 0.1 % ointment 1 applic topical BID Qty: 80 0RF Rx Instructions: Apply to affected area no more than 2 weeks/month. Not for use on face. clobetasol 0.05 % solution 1 applic topical DAILY Qty: 50 3RF Rx Instructions: Apply few drops to itchy areas of scalp as needed. Flovent HFA 220 mcg/actuation HFA aerosol inhaler 2 puff INHALATION BID Qty: 12 1RF Rx Instructions: In Cailingarrett Friend absence's buspirone 15 mg tablet 15 mg PO BID Qty: 60 0RF Rx Instructions: Take one tablet by mouth every morning and evening prazosin 1 mg capsule 1 mg PO .q hs Qty: 30 0RF Rx Instructions: Take one capsule daily at bedtime; hold for side effects or low blood pressure sertraline 20 mg/mL concentrate 50 mg PO DAILY Qty: 60 0RF Rx Instructions: Take 50 mg daily (2.5 ml) by mouth once daily trazodone 100 mg tablet See Rx Instructions PO DAILY PRN (Reason: insomnia) Qty: 30 0RF Rx Instructions: Take 1/2 to one tablet daily at bedtime, if needed for insomnia ascorbic acid (vitamin C) [Vitamin C] 500 mg Tablet 250 mg PO DAILY ibuprofen [Advil] 200 mg Tablet 200 mg PO Q6H PRN (Reason: Pain) Hold Instructions: Resume on 01/30/23. vitamin B complex Tablet 1 tab PO DAILY montelukast 10 mg tablet 10 mg PO BEDTIME Rx Instructions: needs a new provider for refills tramadol 50 mg Tablet 50 mg PO Q6H PRN (Reason: Pain) Hold Instructions: Resume on 02/07/23. acetaminophen [Tylenol] 325 mg Tablet 325 mg PO QID PRN (Reason: pain) Medrol (Jose) 4 mg tablets,dose pack See Rx Instructions .ROUTE .COMPLEX Qty: 21 0RF Rx Instructions: orally per package directions Naprosyn 500 mg tablet 500 mg PO BID PRN (Reason: pain) Qty: 20 0RF Discharge Orders: Discharge ED (Routine); Ordered 08/22/23 Ordered By: Linwood Freeman Referrals: Shane Umaña NP [Primary Care Provider] - Discharge Diet: Usual diet Discharge Activity: Increase activity as tolerated Patient Instructions: Food Allergy (ED) Activity Restrictions/Additional Instructions: Continue with routine medications as prescribed. Drink plenty of water. Avoid further dairy products. Follow-up with primary care for further evaluation and treatment. Return to emergency department for worsening symptoms such as high fever, increasing shortness of breath, or new concerns. Coding Level of Care Code ED Lamination Inspector for Jess Gamboa
[2023-08-22] MEDS: dexamethasone 4 mg Tablet 10 MG PO (22:41)
[2023-08-22 22:47] VITALS: PULSE 90; RESP 16; O2SAT 96
== END 2023-08-22 22:43 | disposition home or self-care (01) ==
PROVIDERS: Emergency Provider Nurse Practitioner Family; PCP Nurse Practitioner Family
DX: R09.82 Postnasal drip (principal); T78.1XXA Other adverse food reactions, not elsewhere classified, initial encounter; X58.XXXA Exposure to other specified factors, initial encounter
CPT/HCPCS: 99283; J8540

== ENCOUNTER 2023-08-28 13:46 | Emergency (ER) | payer MEDICAID, SELFPAY ==
[2023-08-03 10:16] VITALS: BP 133/79; BMI 42.8
[2023-08-28 13:52] VITALS: BP 122/86; PULSE 108; RESP 16; TEMP 36.8; O2SAT 98; BMI 42.7
--- NOTE | 2023-08-28 14:18 | W.ED.URI ---
HPI - URI/Sore Throat General: Chief Complaint: Upper Respiratory Infection Stated Complaint: sinus infection Time Seen by Provider: 08/28/23 13:50 Source: patient Mode of arrival: ambulatory Limitations: no limitations History of Present Illness: Patient is a 37-year-old female presents to ED today with a complaint of sinus pain/pressure, runny nose, nasal congestion, postnasal drip, sore throat, hoarseness and cough. She states she has a sinus infection. She is requesting cough medicine. She states she has no income and cannot purchase anything [id number] to help with symptoms. Symptoms present 3-5 days davian. No chest pain, dyspnea, or fevers. MD elicited complaint: cough, sore throat, rhinorrhea, nasal congestion and sinus pain Onset (ago): day(s) Consistency: constant Severity: mild Description of mucous: clear Able to tolerate fluids by mouth: Yes Exacerbating factors: nothing Relieving factors: nothing Associated symptoms: Reports congestion, cough, nasal congestion, sinus pain and sore throat; Deny chills, chest pain, diarrhea, ear or mastoid pain, fever(s), headache(s), nausea or vomiting Treatments prior to arrival: none Review of Systems Const: Denies: fever(s), chills, body aches, fatigue or malaise Eyes: Denies: change in vision, blurry vision, photophobia, floaters or seeing flashes ENMT: Reports: odynophagia, nasal discharge, nasal congestion and sinus pain; Denies: ear or mastoid pain, ear discharge, change in hearing, tinnitus or disequilibrium Card: Denies: chest pain Resp: Reports: productive cough and chest congestion; Denies: dyspnea GI: Denies: nausea, vomiting or diarrhea Musc: Denies: neck pain Neuro: Denies: headache(s) or dizziness PFS ED PFSH: Medical History Major depressive disorder, recurrent, moderate Psychiatric care No pertinent past medical history neghx: htn,dm,thyroid,dvt/pe PCP: [facility] Ventral hernia Blood type O- Obesity Major depressive disorder, recurrent severe without psychotic features Generalized anxiety disorder Post-traumatic stress disorder, chronic Migraine without aura Asthma Fibromyalgia Surgical History History of hernia repair (~08/2020) History of cholecystectomy History of bilateral breast reduction surgery (2007) History of abdominoplasty (2012) Pannus removal, jazlynsundeep peña @ [facility] Family History Mother Hypertension Diabetes Graves disease Grandmother Stroke Maternal Diabetes Paternal Father Hypercholesterolemia Grandfather Cancer Maternal Grandfather: Mesothelioma Grandfather Colon cancer Paternal---dx age unknown Denies family history of Ovarian cancer Heart disease Breast cancer Uterine cancer Social History Smoking and tobacco/nicotine status: never used tobacco/nicotine Substance/Drug Use: never Additional social history: Well-balanced diet No substance abuse. Do you think of yourself as: Straight/Heterosexual Female Reproductive History: Date of last menstrual period: 08/28/23 Physical Exam Const: COMMON NORMALS: patient oriented x3, no limitations and well nourished GENERAL APPEARANCE: cooperative NUTRITIONAL APPEARANCE: obese ORIENTATION/CONSCIOUSNESS: Yes awake, Yes oriented to person, Yes oriented to place and Yes oriented to time OTHER: patient speaks in a whisper stating she cannot talk due to her post nasal drainage HENMT: COMMON NORMALS: normocephalic, atraumatic, hearing grossly normal bilaterally, external ears normal, EAC's normal, TM's normal bilaterally, Normal external nose present, Normal nasal mucous membranes and turbinates present, moist oral mucous membranes, oropharynx normal and gingiva normal HEAD & SCALP: normal to inspection, normocephalic and atraumatic FACE & SINUS: normal facial exam and sinus tenderness frontal and maxillary NOSE: Normal external nose present and Normal nasal mucous membranes and turbinates present EXTERNAL EAR: Yes external ears normal EXTERNAL AUDITORY CANAL: EAC's normal TYMPANIC MEMBRANE: TM's normal bilaterally MOUTH: Normal oral and palatal mucosa present and lip normal THROAT: posterior oropharynx normal and tonsils normal Eye: COMMON NORMALS: Equal, round and reactive pupils present and EOMs intact bilaterally GENERAL EYE: appearance normal, both eyes and all related structures and normal light reflex PUPIL: Yes Equal, round and reactive pupils present DIRECT OPHTHALMOSCOPY: Yes normal light reflex Neck/C-Spine: COMMON NORMALS: full ROM, no lymphadenopathy and no meningeal signs GENERAL: Yes normal visual inspection Resp: COMMON NORMALS: normal respiratory effort and clear to auscultation bilaterally AUSCULTATION: clear to auscultation bilaterally Cardio: COMMON NORMALS: regular rate and regular rhythm RATE: regular rate RHYTHM: regular rhythm Extremity: GENERAL: Yes normal exam except as noted Neuro: SAUD COMA SCALE: document GCS findings [place] coma scale eye opening: Spontaneous [place] coma scale verbal response: Orientated [place] coma scale motor response: Obey commands Saud coma scale total score: 15 COMMON NORMALS: patient oriented x3 SENSORIUM/ORIENTATION: Yes oriented to person, Yes oriented to place and Yes oriented to time MENINGEAL SIGNS: Yes no meningeal signs Skin: COMMON NORMALS: no rashes or lesions noted GENERAL SKIN EXAM: no rashes or lesions noted Course Vital Signs: Vital signs: Vital Signs Temperature 98.2 F 08/28/23 13:52 Pulse Rate 108 H 08/28/23 13:52 Respiratory Rate 16 08/28/23 13:52 Blood Pressure 122/86 08/28/23 13:52 Pulse Oximetry 98 08/28/23 13:52 MDM - URI/Sore Throat Medical Decision Making Patient here with most likely viral illness. Discussed how most cases of sinusitis are viral. Recommend symptomatic treatment. She is requesting cough medicine stating that [facility] [employer] do not work for her. I do not want to prescribe anything with codeine as patient already takes tramadol. I will write her for [id number] Mucinex DM although I am not sure if her insurance will cover this as it is available [id number]. She states she has no income and cannot purchase any [id number] medication. Will try to treat her with steroids. Reassurance given as again symptoms most likely are viral and self-limited. Differential Diagnosis Likely upper respiratory infection, sinusitis, viral infection and bronchitis Medical Records I reviewed the patient's medical records. No radiology studies performed this visit Discharge Plan Discharge Patient Disposition: Home Clinical Impression: Upper respiratory infection Qualifiers: URI type: unspecified viral URI Qualified Code(s): J06.9 - Acute upper respiratory infection, unspecified Condition: Stable Prescriptions: New Medrol (Jose) 4 mg tablets,dose pack See Rx Instructions .ROUTE .COMPLEX Qty: 21 0RF Rx Instructions: orally per package directions Mucinex DM 60-1,200 mg tablet extended release 12 hr 1 tab PO BID PRN (Reason: congestion/cough) Qty: 14 0RF No Action cetirizine [Zyrtec] 10 mg tablet 10 mg PO DAILY Qty: 30 2RF cyclobenzaprine 5 mg tablet 5 mg PO TID PRN (Reason: muscle spasm) Qty: 90 2RF hydroxyzine HCl 25 mg tablet 25 mg PO QID PRN (Reason: anxiety) Qty: 120 1RF albuterol sulfate [ProAir HFA] 90 mcg/actuation HFA aerosol inhaler 2 puff INHALATION Q6H PRN (Reason: Shortness Of Breath Or Wheezing) fluticasone propionate [Allergy Relief (fluticasone)] 50 mcg/actuation spray,suspension 2 spray INTRANASAL BID omeprazole 20 mg capsule,delayed release(DR/EC) 20 mg PO BID gabapentin 300 mg capsule 300 mg PO TID buspirone 15 mg tablet 15 mg PO BID Qty: 60 2RF Rx Instructions: Take one tablet by mouth every morning and evening prazosin 2 mg capsule 2 mg PO BID Qty: 30 2RF Rx Instructions: Take one capsule daily at bedtime; stop 1 mg dose sertraline 20 mg/mL concentrate 50 mg PO DAILY Qty: 60 2RF Rx Instructions: Take 50 mg daily (2.5 ml) by mouth once daily ketoconazole 2 % shampoo 1 applic topical Q14D Qty: 120 6RF Rx Instructions: Lather into scalp 2-3 times weekly. Allowed to sit on scalp for 5 minutes before rinsing. triamcinolone acetonide 0.1 % ointment 1 applic topical BID Qty: 80 0RF Rx Instructions: Apply to affected area no more than 2 weeks/month. Not for use on face. clobetasol 0.05 % solution 1 applic topical DAILY Qty: 50 3RF Rx Instructions: Apply few drops to itchy areas of scalp as needed. Flovent HFA 220 mcg/actuation HFA aerosol inhaler 2 puff INHALATION BID Qty: 12 1RF Rx Instructions: In Cailin Friend absence's trazodone 100 mg tablet See Rx Instructions PO DAILY PRN (Reason: insomnia) Qty: 30 0RF Rx Instructions: Take 1/2 to one tablet daily at bedtime, if needed for insomnia ascorbic acid (vitamin C) [Vitamin C] 500 mg Tablet 250 mg PO DAILY ibuprofen [Advil] 200 mg Tablet 200 mg PO Q6H PRN (Reason: Pain) Hold Instructions: Resume on 02/05/23. vitamin B complex Tablet 1 tab PO DAILY montelukast 10 mg tablet 10 mg PO BEDTIME Rx Instructions: needs a new provider for refills tramadol 50 mg Tablet 50 mg PO Q6H PRN (Reason: Pain) Hold Instructions: Resume on 02/07/23. 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
== END 2023-08-28 14:37 | disposition home or self-care (01) ==
PROVIDERS: Emergency Provider Physician Assistant; PCP Nurse Practitioner Family
DX: J06.9 Acute upper respiratory infection, unspecified (principal)
CPT/HCPCS: 99283

== ENCOUNTER 2023-10-07 23:06 | Emergency (ER) | payer MEDICAID, SELFPAY ==
[2023-08-03 10:16] VITALS: BP 133/79; BMI 42.8
[2023-10-07 23:07] VITALS: BP 155/87; PULSE 75; RESP 17; TEMP 37.1; O2SAT 99; BMI 42.9
--- NOTE | 2023-10-07 23:16 | W.ED.AMS ---
HPI - Altered Mental Status General: Chief Complaint: Altered Mental Status Stated Complaint: general weakness Time Seen by Provider: 10/07/23 23:08 History of Present Illness: 37-year-old female comes in today for complaints of generalized weakness and feeling like she might have a seizure. Patient appears nontoxic. Patient appears in no acute distress. Patient has a history of fibromyalgia, coxalgia, low back pain, PTSD, asthma. Patient has these episodes often but today she seems like they just would not stop. Patient appears nontoxic. Patient appears in no acute distress. Review of Systems General: Reports: 10 or more systems reviewed and unremarkable except in HPI and below Neuro: Reports: weakness in extremities [facility] ED [facility]: Medical History (Updated 10/08/23 @ 00:42 by LESLI Polk) BMI 40.0-44.9, adult Major depressive disorder, recurrent, moderate Psychiatric care Ventral hernia Blood type O- Obesity Generalized anxiety disorder Post-traumatic stress disorder, chronic Migraine without aura Asthma Fibromyalgia Surgical History History of hernia repair (~08/2020) History of cholecystectomy History of bilateral breast reduction surgery (2007) History of abdominoplasty (2012) Pannus removal, tummy mariana @ [facility] Family History Mother Hypertension Diabetes Graves disease Grandmother Stroke Maternal Diabetes Paternal Father Hypercholesterolemia Grandfather Cancer Maternal Grandfather: Mesothelioma Grandfather Colon cancer Paternal---dx age unknown Denies family history of Ovarian cancer Heart disease Breast cancer Uterine cancer Social History Smoking and tobacco/nicotine status: never used tobacco/nicotine Substance/Drug Use: never Additional social history: Well-balanced diet No substance abuse. Do you think of yourself as: Straight/Heterosexual Physical Exam Const: COMMON NORMALS: alert HENMT: COMMON NORMALS: normocephalic HEAD & SCALP: normocephalic Neck/C-Spine: COMMON NORMALS: full ROM Resp: COMMON NORMALS: normal respiratory effort and clear to auscultation bilaterally AUSCULTATION: clear to auscultation bilaterally Cardio: COMMON NORMALS: regular rate and regular rhythm RATE: regular rate RHYTHM: regular rhythm GI: COMMON NORMALS: Soft to palpation PALPATION: Yes Soft to palpation Extremity: COMMON NORMALS: normal to inspection Neuro: SENSORIUM/ORIENTATION: Yes alert Psych: COMMON NORMALS: denies homicidal ideation and denies suicidal ideation Skin: COMMON NORMALS: turgor normal GENERAL SKIN EXAM: turgor normal Course Vital Signs: Vital signs: Vital Signs Temperature 98.8 F 10/07/23 23:07 Pulse Rate 70 10/08/23 00:01 Respiratory Rate 18 10/08/23 00:01 Blood Pressure 126/87 10/08/23 00:01 Pulse Oximetry 95 10/08/23 00:01 Oxygen Delivery Me thod Room Air 10/08/23 00:01 MDM - Altered Mental Status Medical Decision Making 37-year-old female comes in today with feelings of weakness and feeling like she may have a seizure. Patient denies any history of seizures. Patient reports that she was post to see her children today but could not due to just feeling poorly. Patient appears nontoxic. Patient appears in no pain. Lungs are clear to auscultation. Vital signs normal except for elevated blood pressure. Patient moves arms without difficulty. Patient refuses to move his legs. Patient has sensation in legs. Differential diagnosis includes not limited to somatic symptoms disorder, intervertebral disc disease, intracranial mass, electrolyte imbalance, anxiety. Patient was given 2 mg of Versed for her symptoms. Patient had improvement of symptoms and was able to ambulate and use extremities well afterwards. Laboratory values were unremarkable. CT of the head was normal. Believe patient probably has somatic symptom disorder. This needs to be managed per psychiatry patient denied any suicidal homicidal thoughts. Patient was discharged home. Lab Data 10/07/23 23:23 10/07/23 23:[address] 10/07/23 23:25 IMPRESSION: No acute intracranial abnormality. Laboratory Results WBC 9.12 10^3/uL (3.29-11.43) 10/07/23 23:23 RBC 4.83 10^6/uL (3.85-5.65) 10/07/23 23:23 Hgb 13.00 g/dL (11.27-16.99) 10/07/23 23:23 Hct 40.5 % (36-47) 10/07/23 23:23 MCV 83.9 fl (85-98) L 10/07/23 23:23 MCH 26.9 pg (27-33) L 10/07/23 23:23 MCHC 32.1 g/dL (30-55) 10/07/23 23:23 RDW 14.7 % (12.1-15.1) 10/07/23 23:23 Plt Count 230 10^3/cmm (157-399) 10/07/23 23:23 MPV 11.4 fL (7.4-10.4) H 10/07/23 23:23 Neut % (Auto) 69.0 % 10/07/23 23:23 Lymph % (Auto) 22.8 % 10/07/23 23:23 [place] % (Auto) 6.3 % 10/07/23 23:23 Eos % (Auto) 1.3 % 10/07/23 23:23 Baso % (Auto) 0.3 % 10/07/23 23:23 Neut # (Auto) 6.29 10^3/uL (1.8-7.7) 10/07/23 23:23 Lymph # (Auto) 2.1 10^3/uL (0.8-4.8) 10/07/23 23:23 [place] # (Auto) 0.6 10^3/uL (0.2-0.9) 10/07/23 23:23 Eos # (Auto) 0.1 10^3/uL (0.0-0.8) 10/07/23 23:23 Baso # (Auto) 0.0 10^3/uL (0.0-0.1) 10/07/23 23:23 Nucleated RBC % (auto) 0 % 10/07/23 23:23 Nucleated RBCs # 0.0 /100WBC 10/07/23 23:23 Sodium 143 mmol/L (136-145) 10/07/23 23:23 Potassium 3.8 mmol/L (3.5-5.1) 10/07/23 23:23 Chloride 109 mmol/L (98-107) H 10/07/23 23:23 Carbon Dioxide 27 mmol/L (22-29) 10/07/23 23:23 Anion Gap 10.8 (5-19) 10/07/23 23:23 BUN 13 mg/dL (6-20) 10/07/23 23:23 Creatinine 0.9 mg/dL (0.5-0.9) 10/07/23 23:23 GFR Calculation 69.7 mL/min (90-130) L 10/07/23 23:23 Glucose 112 mg/dL (65-115) 10/07/23 23:23 Calculated Osmolality 297 mOsm/kg (285-295) H 10/07/23 23:23 Calcium 9.1 mg/dL (8.5-10.5) 10/07/23 23:23 Total Bilirubin 0.7 mg/dL (0.15-1.2) 10/07/23 23:23 AST 16 U/L (0-32) 10/07/23 23:23 ALT 15 U/L (0-33) 10/07/23 23:23 Alkaline Phosphatase 135 U/L (35-105) H 10/07/23 23:23 Total Protein 7.0 g/dL (6.6-8.7) 10/07/23 23:23 Albumin 4.0 g/dL (3.5-5.2) 10/07/23 23:23 Globulin 3.0 g/dL (1.3-4.6) 10/07/23 23:23 HCG, Qual Negative (Negative) 10/07/23 23:23 Urine Color Yellow (Yellow) 10/07/23 23:38 Urine Appearance Cloudy (CLEAR) A 10/07/23 23:38 Urine pH 5 (5-7) 10/07/23 23:38 Ur Specific [place] 1.020 (1.005-1.030) 10/07/23 23:38 Urine Protein Neg (Negative) 10/07/23 23:38 Urine Glucose (UA) Norm (Normal) 10/07/23 23:38 Urine Ketones Negative (Negative) 10/07/23 23:38 Urine Blood Neg (Negative) 10/07/23 23:38 Urine Nitrate Negative (Negative) 10/07/23 23:38 Urine Bilirubin Neg (Negative) 10/07/23 23:38 Urine Urobilinogen Norm mg/dL (Negative) 10/07/23 23:38 Ur Leukocyte Esterase 2+ (Negative) H 10/07/23 23:38 Urine RBC 0-4 /hpf (0-2) H 10/07/23 23:38 Urine WBC 10-15 /hpf (0-5) H 10/07/23 23:38 Ur Squamous Epith Cells 15-25 /hpf (0-5) H 10/07/23 23:38 Amorphous Sediment Not Reportable 10/07/23 23:38 Urine Bacteria 2+ /hpf (NONE) H 10/07/23 23:38 Urine Opiates Screen Negative ng/mL (Negative) 10/07/23 23:38 Ur Barbiturates Screen Negative ng/mL (Negative) 10/07/23 23:38 Ur Phencyclidine Scrn Negative ng/mL (Negative) 10/07/23 23:38 Ur Amphetamines Screen Negative ng/mL (Negative) 10/07/23 23:38 U Benzodiazepines Scrn Negative ng/mL (Negative) 10/07/23 23:38 Urine Cocaine Screen Negative ng/mL (Negative) 10/07/23 23:38 U Marijuana (THC) Screen Negative ng/mL (Negative) 10/07/23 23:38 Ethyl Alcohol < 10 mg/dL (0-10) 10/07/23 23:23 All radiology interpretation(s) finalized by discharge Discharge Plan Discharge Patient Disposition: Home Clinical Impression: Somatic symptom disorder Condition: Stable Prescriptions: No Action cetirizine [Zyrtec] 10 mg tablet 10 mg PO DAILY Qty: 30 2RF cyclobenzaprine 5 mg tablet 5 mg PO TID PRN (Reason: muscle spasm) Qty: 90 2RF hydroxyzine HCl 25 mg tablet 25 mg PO QID PRN (Reason: anxiety) Qty: 120 1RF albuterol sulfate [ProAir HFA] 90 mcg/actuation HFA aerosol inhaler 2 puff INHALATION Q6H PRN (Reason: Shortness Of Breath Or Wheezing) fluticasone propionate [Allergy Relief (fluticasone)] 50 mcg/actuation spray,suspension 2 spray INTRANASAL BID gabapentin 300 mg capsule 300 mg PO TID buspirone 15 mg tablet 15 mg PO BID Qty: 60 2RF Rx Instructions: Take one tablet by mouth every morning and evening prazosin 2 mg capsule 2 mg PO BID Qty: 30 2RF Rx Instructions: Take one capsule daily at bedtime; stop 1 mg dose sertraline 20 mg/mL concentrate 50 mg PO DAILY Qty: 60 2RF Rx Instructions: Take 50 mg daily (2.5 ml) by mouth once daily pantoprazole 40 mg tablet,delayed release (DR/EC) 40 mg PO DAILY B-complex with vitamin C Tablet Extended Release 1 tab PO DAILY Qty: 90 1RF PNV no.63-iron,[id number] 27 mg iron- 800 mcg-200 mg capsule 1 cap PO DAILY Qty: 90 1RF ketoconazole 2 % shampoo 1 applic topical Q14D Qty: 120 6RF Rx Instructions: Lather into scalp 2-3 times weekly. Allowed to sit on scalp for 5 minutes before rinsing. triamcinolone acetonide 0.1 % ointment 1 applic topical BID Qty: 80 0RF Rx Instructions: Apply to affected area no more than 2 weeks/month. Not for use on face. clobetasol 0.05 % solution 1 applic topical DAILY Qty: 50 3RF Rx Instructions: Apply few drops to itchy areas of scalp as needed. Flovent HFA 220 mcg/actuation HFA aerosol inhaler 2 puff INHALATION BID Qty: 12 1RF Rx Instructions: In Cailin Friend absence's trazodone 100 mg tablet See Rx Instructions PO DAILY PRN (Reason: insomnia) Qty: 30 2RF Rx Instructions: Take 1/2 to one tablet daily at bedtime, if needed for insomnia montelukast 10 mg tablet 10 mg PO BEDTIME Rx Instructions: needs a new provider for refills tramadol 50 mg Tablet 50 mg PO Q6H PRN (Reason: Pain) Hold Instructions: Resume on 02/07/23. acetaminophen [Tylenol] 325 mg Tablet 325 mg PO QID PRN (Reason: pain) Discharge Orders: Discharge ED (Routine); Ordered 10/08/23 Ordered By: Linwood Freeman Referrals: Amarjit Mcintosh MD [Primary Care Provider] - Discharge Diet: Usual diet Patient Instructions: Anxiety (ED) Activity Restrictions/Additional Instructions: Follow-up with primary care or psychiatrist for further evaluation and treatment. Return to ED for new concerns. Coding Level of Care Code ED Saxophone Player for Jess Gamboa
--- NOTE | 2023-10-07 23:25 | CTR_ITS ---
PROCEDURE INFORMATION: Exam: CT Head Without Contrast Exam date and time: 10/07/2023 11:48 PM Age: 37 years old Clinical indication: Other: See below; Patient HX: Patient says she has convulsions for 20 years and she just wanted to get in checked out today. Patient says she had one this morning and was aware she was having it and always is. She says her forehead area feels numb; Additional info: Dizziness TECHNIQUE: Imaging protocol: Computed tomography of the head without contrast. Radiation optimization: All CT scans at this facility use at least one of these dose optimization techniques: automated exposure control; mA and/or kV adjustment per patient size (includes targeted exams where dose is matched to clinical indication); or iterative reconstruction. COMPARISON: 1. CT head wo con* 11/24/2018 12:56 PM 2. MR iac's wo/w con* 12/03/2018 8:26 AM RADIATION DOSE METRICS: Total DLP (mGy-cm): 1049.58 FINDINGS: Brain: No acute intracranial hemorrhage, acute large territory infarct, or obvious mass lesion. No significant white matter disease. No midline shift or mass effect. Cerebral ventricles: No ventriculomegaly. Paranasal sinuses: Visualized sinuses are unremarkable. No fluid levels. Mastoid air cells: Visualized mastoid air cells are well aerated. Bones/joints: Unremarkable. No acute fracture. Soft tissues: Unremarkable. Other findings: No visible contraindication to MRI on this exam. CT/CT head wo con* [id number] IMPRESSION: No acute intracranial abnormality.
[2023-10-07 23:28] LABS: Basophils % 0.3 %; Eosinophils # 0.1 10^3/uL (0.0-0.8); Eosinophils % 1.3 %; Hematocrit 40.5 % (36-47); Lymphocytes # 2.1 10^3/uL (0.8-4.8); Lymphocytes % 22.8 %; Mean Corpuscular HGB Conc 32.1 g/dL (30-55); Mean Corpuscular Hemoglobin 26.9 pg (27-33); Mean Corpuscular Volume 83.9 fl (85-98); Mean Platelet Volume 11.4 fL (7.4-10.4); Monocytes # 0.6 10^3/uL (0.2-0.9); Monocytes % 6.3 %; Neutrophils # 6.29 10^3/uL (1.8-7.7); Nucleated Red Blood Cells % 0 %; Platelet Count 230 10^3/cmm (157-399); Red Blood Count 4.83 10^6/uL (3.85-5.65); Red Cell Distribution Width 14.7 % (12.1-15.1); White Blood Count 9.12 10^3/uL (3.29-11.43)
[2023-10-07] MEDS: midazolam 1 mg/mL INJ 2 mL 2 MG IVP (23:38)
[2023-10-07 23:40] VITALS: BP 114/79; PULSE 75; RESP 14; O2SAT 97
[2023-10-07 23:41] LABS: HCG, Serum Qual Negative (Negative)
[2023-10-07 23:47] LABS: Alanine Aminotransferase 15 U/L (0-33); Alkaline Phosphatase 135 U/L (35-105); Anion Gap 10.8 (5-19); Aspartate Amino Transferase 16 U/L (0-32); Blood Urea Nitrogen 13 mg/dL (6-20); Calcium 9.1 mg/dL (8.5-10.5); Carbon Dioxide 27 mmol/L (22-29); Chloride 109 mmol/L (98-107); Glomerular Filtration Rate 69.7 mL/min (90-130); Glucose 112 mg/dL (65-115); Osmolality Calculated 297 mOsm/kg (285-295); Potassium 3.8 mmol/L (3.5-5.1); Sodium 143 mmol/L (136-145); Total Bilirubin 0.7 mg/dL (0.15-1.2)
[2023-10-07 23:53] LABS: Alcohol Level < 10 mg/dL (0-10)
[2023-10-07 23:56] LABS: Amphetamines Screen Urine Negative (Negative); Barbiturates Screen Urine Negative (Negative); Benzodiazepines Screen Urine Negative (Negative); Cocaine Screen Urine Negative (Negative); Opiate Screen Urine Negative (Negative); PCP Screen Urine Negative (Negative); THC Screen Urine Negative (Negative)
[2023-10-07 23:57] LABS: Add Urine Culture? No; Add Urine Microscopic? YES; Bacteria Urine 2+ /hpf; Bilirubin Urine Neg (Negative); Blood Urine Neg (Negative); Glucose Urine UA Norm (Normal); Ketones Urine Negative (Negative); Leukocyte Esterase Urine 2+ (Negative); Nitrate Urine Negative (Negative); Protein Urine Neg (Negative); RBC Urine 0-4 /hpf (0-2); Squamous Epithelial Cell Urine 15-25 /hpf (0-5); Urine Appearance Cloudy (CLEAR); Urine Color Yellow (Yellow); Urobilinogen Urine Norm (Negative); pH Urine 5 (5-7)
[2023-10-08 00:01] VITALS: BP 126/87; PULSE 70; RESP 18; O2SAT 95
[2023-10-08 00:45] VITALS: BP 114/79; PULSE 74; RESP 21; O2SAT 98
[2023-10-08 00:55] VITALS: BP 114/79; PULSE 97; RESP 16; O2SAT 99
== END 2023-10-08 00:56 | disposition home or self-care (01) ==
PROVIDERS: Emergency Provider Nurse Practitioner Family; PCP Family Medicine Adult Medicine
DX: F45.9 Somatoform disorder, unspecified (principal)
CPT/HCPCS: 70450; 80053; 80306; 80307; 81001; 84703; 85025; 96374; 99285; J2250

== ENCOUNTER → 2023-10-13 11:30 | Outpatient (BNVA) | payer MEDICAID, SELFPAY ==
[2023-08-03 10:16] VITALS: BP 133/79; BMI 42.8
== END ==
PROVIDERS: PCP Family Medicine Adult Medicine; Visit Provider Family Medicine Adult Medicine
DX: Z83.49 Family history of other endocrine, nutritional and metabolic diseases (principal)
CPT/HCPCS: 84439; 84443

== ENCOUNTER 2023-10-24 01:43 | Emergency (ER) | payer MEDICAID, SELFPAY ==
[2023-10-16 13:33] VITALS: BP 133/79; BMI 42.8
[2023-10-24 01:47] VITALS: BP 163/101; PULSE 58; RESP 16; TEMP 37; O2SAT 99
[2023-10-24] MEDS: fluorescein 1 mg Strip EYE-BOTH (01:52)
--- NOTE | 2023-10-24 01:59 | W.ED.EYEPROB ---
HPI - Eye Problem General: Chief complaint: Eye Problems Stated complaint: EYE PROBLEM Time Seen by Provider: 10/24/23 01:45 History of Present Illness: Patient brought in by EMS for complaints of right eye problems. Couple hours ago patient splashed combination of dish soap and vinegar in her right eye. It was irrigated out by patient. It kept hurting patient called EMS. They irrigated out and brought her to the ER. Patient still complaining about eye pain and excessive matting. Is only the patient's right eye. Patient's left eye is fine. Review of Systems General: Reports: 10 or more systems reviewed and unremarkable except in HPI and below PFSH ED PFSH: Medical History FH: thyroid disease FH: colon cancer in relative <50 years old Grandfather at age 40 colon cancer , 01/2023 EGD small Hiatal hernia and polyp's removed, no colonoscopy yet Weight loss, intentional 11/21/2022 274 lbs, 10/07/2023 251 lbs History of prediabetes last A1c 5.4 in 2022 BMI 40.0-44.9, adult Major depressive disorder, recurrent, moderate Psychiatric care Ventral hernia Blood type O- Obesity Generalized anxiety disorder Post-traumatic stress disorder, chronic Migraine without aura Asthma Fibromyalgia Surgical History History of hernia repair (~08/2020) History of cholecystectomy 2016 History of bilateral breast reduction surgery (2007) 2007 breast reduction History of abdominoplasty (2012) 2013 Pannus removal, jazlynmy mariana @ [facility] Family History Mother Hypertension Diabetes Graves disease Grandmother Stroke Maternal Diabetes Paternal Father Hypercholesterolemia Grandfather Cancer Maternal Grandfather: Mesothelioma Grandfather Colon cancer Paternal---dx age unknown Denies family history of Ovarian cancer Heart disease Breast cancer Uterine cancer Social History Smoking and tobacco/nicotine status: never used tobacco/nicotine Substance/Drug Use: never Additional social history: Well-balanced diet No substance abuse. Do you think of yourself as: Straight/Heterosexual Physical Exam Const: COMMON NORMALS: no acute distress, average body habitus, patient oriented x3, no limitations, healthy appearing, alert and well nourished HENMT: COMMON NORMALS: normocephalic, atraumatic, hearing grossly normal bilaterally, Normal external nose present, moist oral mucous membranes and oropharynx normal HEAD & SCALP: normocephalic and atraumatic NOSE: Normal external nose present Eye: COMMON NORMALS: Equal, round and reactive pupils present, EOMs intact bilaterally, negative for conjunctivae normal (Conjunctiva irritated whitish matting noted) and no scleral icterus CONJUNCTIVA: No conjunctivae normal (Conjunctiva irritated whitish matting noted) PUPIL: Yes Equal, round and reactive pupils present Neck/C-Spine: COMMON NORMALS: full ROM, no lymphadenopathy, supple, no meningeal signs, no JVD and Thyroid normal THYROID: Thyroid normal Chest: COMMONS NORMALS: normal inspection of the chest and normal palpation of entire chest wall Resp: COMMON NORMALS: normal respiratory effort, No retractions and No use of accessory muscles Cardio: COMMON NORMALS: no JVD, regular rate, regular rhythm, S1 normal heart sound present, S2 normal heart sound present, No gallops present (Cardio), No clicks present (Cardio) and No murmurs present (Cardio) RATE: regular rate RHYTHM: regular rhythm HEART SOUNDS: S1 normal heart sound present and S2 normal heart sound present Neuro: COMMON NORMALS: patient oriented x3 SENSORIUM/ORIENTATION: Yes alert MENINGEAL SIGNS: Yes no meningeal signs Course Vital Signs: Vital signs: Vital Signs Temperature 98.6 F 10/24/23 01:47 Pulse Rate 58 L 10/24/23 01:47 Respiratory Rate 16 10/24/23 01:47 Blood Pressure 163/101 10/24/23 01:47 Pulse Oximetry 99 10/24/23 01:47 MDM - Eye Problem Medical Decision Making Couple drops of tetracaine was instilled in right eye, fluorescein dye was placed on lower eyelid, eye was examined under fluorescein light with no uptake of the fluorescein noted. I will be thoroughly lavaged with normal saline and a Jose lens. Patient be placed on antibiotic drops and discharged home. Differential Diagnosis Likely conjunctivitis; Unlikely corneal abrasion, acute iritis, hyphema, periorbital cellulitis, subconjunctival hemorrhage, glaucoma, corneal ulcer or ruptured globe Medical Records I reviewed the patient's medical records. Lab Data I reviewed the patient's lab results. No radiology studies performed this visit Discharge Plan Discharge Patient Disposition: Home Clinical Impression: Acute chemical conjunctivitis of right eye Condition: Stable Prescriptions: New erythromycin 5 mg/gram (0.5 %) ointment 1 applic ophthalmic (eye) Q8H Qty: 3.5 0RF No Action cetirizine [Zyrtec] 10 mg tablet 10 mg PO DAILY Qty: 30 2RF cyclobenzaprine 5 mg tablet 5 mg PO TID PRN (Reason: muscle spasm) Qty: 90 2RF hydroxyzine HCl 25 mg tablet 25 mg PO QID PRN (Reason: anxiety) Qty: 120 1RF albuterol sulfate [ProAir HFA] 90 mcg/actuation HFA aerosol inhaler 2 puff INHALATION Q6H PRN (Reason: Shortness Of Breath Or Wheezing) fluticasone propionate [Allergy Relief (fluticasone)] 50 mcg/actuation spray,suspension 2 spray INTRANASAL BID gabapentin 300 mg capsule 300 mg PO TID buspirone 15 mg tablet 15 mg PO BID Qty: 60 2RF Rx Instructions: Take one tablet by mouth every morning and evening prazosin 2 mg capsule 2 mg PO BID Qty: 30 2RF Rx Instructions: Take one capsule daily at bedtime; stop 1 mg dose sertraline 20 mg/mL concentrate 50 mg PO DAILY Qty: 60 2RF Rx Instructions: Take 50 mg daily (2.5 ml) by mouth once daily pantoprazole 40 mg tablet,delayed release (DR/EC) 40 mg PO DAILY B-complex with vitamin C Tablet Extended Release 1 tab PO DAILY Qty: 90 1RF PNV no.63-iron,[id number]-GL-ngs 27 mg iron- 800 mcg-200 mg capsule 1 cap PO DAILY Qty: 90 1RF ketoconazole 2 % shampoo 1 applic topical Q14D Qty: 120 6RF Rx Instructions: Lather into scalp 2-3 times weekly. Allowed to sit on scalp for 5 minutes before rinsing. triamcinolone acetonide 0.1 % ointment 1 applic topical BID Qty: 80 0RF Rx Instructions: Apply to affected area no more than 2 weeks/month. Not for use on face. clobetasol 0.05 % solution 1 applic topical DAILY Qty: 50 3RF Rx Instructions: Apply few drops to itchy areas of scalp as needed. Flovent HFA 220 mcg/actuation HFA aerosol inhaler 2 puff INHALATION BID Qty: 12 1RF Rx Instructions: In Cailin Friend absence's trazodone 100 mg tablet See Rx Instructions PO DAILY PRN (Reason: insomnia) Qty: 30 2RF Rx Instructions: Take 1/2 to one tablet daily at bedtime, if needed for insomnia montelukast 10 mg tablet 10 mg PO BEDTIME Rx Instructions: needs a new provider for refills tramadol 50 mg Tablet 50 mg PO Q6H PRN (Reason: Pain) Hold Instructions: Resume on 02/07/23. acetaminophen [Tylenol] 325 mg Tablet 325 mg PO QID PRN (Reason: pain) Discharge Orders: Discharge ED (Routine); Ordered 10/24/23 Ordered By: Yong Bridges Referrals: Amarjit Mcintosh MD [Primary Care Provider] - 1 week Patient Instructions: Conjunctivitis (ED) Activity Restrictions/Additional Instructions: Drive always examined with fluorescein dye and found no abrasion or ulcerations. Your eyeball was flushed with normal saline. Antibiotic ointment was placed. Please continue these antibiotic ointment 3 times a day for the next 7 days. Please follow-up with your family practice physician or correctional treatment specialist for further evaluation and treatment Coding Level of Care Code ED [employer] Recruiter for Jess Gamboa
[2023-10-24] MEDS: erythromycin Op Oint 1 gm 1 APPLIC EYE-RIGHT (03:19)
[2023-10-24 03:31] VITALS: BP 165/88; PULSE 71; RESP 18; O2SAT 96
== END 2023-10-24 03:26 | disposition home or self-care (01) ==
PROVIDERS: Emergency Provider Emergency Medicine; PCP Family Medicine Adult Medicine
DX: H10.211 Acute toxic conjunctivitis, right eye (principal)
CPT/HCPCS: 99283

== ENCOUNTER 2023-12-08 15:46 | Emergency (ER) | payer MEDICAID, SELFPAY ==
[2023-11-02 10:24] VITALS: BP 133/79; BMI 42.8
[2023-12-08 15:54] VITALS: BP 139/79; PULSE 72; RESP 16; O2SAT 99
[2023-12-08 15:55] VITALS: TEMP 36.5
--- NOTE | 2023-12-08 16:14 | ED_ITS ---
HPI - Allergic Reaction General: Chief complaint: Allergic Reaction Stated complaint: Allergic reaction Time Seen by Provider: 12/08/23 16:01 Source: patient Mode of arrival: EMS History of Present Illness: HPI narrative: 38-year-old female with a history of sandra ry allergy presents emergency room states she had some cheese in her mouth she did not actually swallow it she did get [place] she thought she had some swelling in her mouth and gums. She reports facial swelling and shortness of breath. She was brought in by EMS and given 25 mg IV of Benadryl and route. On arrival here she is awake alert and oriented oxygen sats are normal no respiratory distress no facial swelling or oral swelling. MD complaint: allergic reaction Onset (ago): minute(s) Exposure: food Associated symptoms: Deny abdominal pain Treatment prior to arrival: benadryl Review of Systems Const: Denies: fever(s) or chills Card: Denies: chest pain Resp: Denies: dyspnea GI: Denies: abdominal pain : Denies: dysuria, urinary frequency or urinary urgency Musc: Denies: neck pain or back pain Skin/Breast: Denies: rash PFSH ED PFSH: Medical History FH: thyroid disease FH: colon cancer in relative <50 years old Grandfather at age 40 colon cancer , 01/2023 EGD small Hiatal hernia and polyp's removed, no colonoscopy yet Weight loss, intentional 11/21/2022 274 lbs, 10/07/2023 251 lbs History of prediabetes last A1c 5.4 in 2022 BMI 40.0-44.9, adult Major depressive disorder, recurrent, moderate Psychiatric care Ventral hernia Blood type O- Obesity Generalized anxiety disorder Post-traumatic stress disorder, chronic Migraine without aura Asthma Fibromyalgia Surgical History History of hernia repair (~08/2020) History of cholecystectomy 2016 History of bilateral breast reduction surgery (2007) 2008 breast reduction History of abdominoplasty (2012) 2013 Pannus removal, karen peña @ [facility] Family History Mother Hypertension Diabetes Graves disease Grandmother Stroke Maternal Diabetes Paternal Father Hypercholesterolemia Grandfather Cancer Maternal Grandfather: Mesothelioma Grandfather Colon cancer Paternal---dx age unknown Denies family history of Ovarian cancer Heart disease Breast cancer Uterine cancer Social History Smoking and tobacco/nicotine status: never used tobacco/nicotine Substance/Drug Use: never Additional social history: Well-balanced diet No substance abuse. Do you think of yourself as: Straight/Heterosexual Physical Exam Const: COMMON NORMALS: no acute distress GENERAL APPEARANCE: cooperative and comfortable ORIENTATION/CONSCIOUSNESS: Yes awake, Yes oriented to person, Yes oriented to place and Yes oriented to time HENMT: COMMON NORMALS: normocephalic, atraumatic and hearing grossly normal bilaterally HEAD & SCALP: normocephalic and atraumatic Resp: COMMON NORMALS: normal respiratory effort, No retractions, No use of accessory muscles and clear to auscultation bilaterally AUSCULTATION: clear to auscultation bilaterally Cardio: COMMON NORMALS: regular rate, regular rhythm and No murmurs present (Cardio) RATE: regular rate RHYTHM: regular rhythm GI: COMMON NORMALS: Soft to palpation and No hepatosplenomegaly present AUSCULTATION: Yes normoactive bowel sounds PALPATION: Yes Soft to palpation, No Tenderness to palpation present (GI), No Guarding due to palpation present (GI) and Yes No hepatosplenomegaly present Extremity: COMMON NORMALS: normal to inspection, capillary refill normal, no clubbing, cyanosis or edema, no calf tenderness and no pedal edema Neuro: SENSORIUM/ORIENTATION: Yes oriented to person, Yes oriented to place and Yes oriented to time Skin: COMMON NORMALS: no rashes or lesions noted GENERAL SKIN EXAM: no rashes or lesions noted Course Vital Signs: Vital signs: Vital Signs Temperature 97.7 F 12/08/23 15:55 Pulse Rate 72 12/08/23 15:54 Respiratory Rate 16 12/08/23 15:54 Blood Pressure 139/79 12/08/23 15:54 Pulse Oximetry 99 12/08/23 15:54 MDM - Allergic Reaction Medical Decision Making Patient awake alert and oriented no wheezing no rhonchi no stridor no facial swelling or oropharyngeal swelling. Patient given 10 mg dexamethasone. 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 Follow-up with your primary care doctor as needed. Return if she has further problems. Differential Diagnosis Likely allergic reaction Medical Records I reviewed the patient's medical records. No radiology studies performed this visit Discharge Plan Discharge Patient Disposition: Home Clinical Impression: Dairy allergy Condition: Stable Prescriptions: No Action cetirizine [Zyrtec] 10 mg tablet 10 mg PO DAILY Qty: 30 2RF cyclobenzaprine 5 mg tablet 5 mg PO TID PRN (Reason: muscle spasm) Qty: 90 2RF hydroxyzine HCl 25 mg tablet 25 mg PO QID PRN (Reason: anxiety) Qty: 120 1RF albuterol sulfate [ProAir HFA] 90 mcg/actuation HFA aerosol inhaler 2 puff INHALATION Q6H PRN (Reason: Shortness Of Breath Or Wheezing) fluticasone propionate [Allergy Relief (fluticasone)] 50 mcg/actuation spray,suspension 2 spray INTRANASAL BID gabapentin 300 mg capsule 300 mg PO TID pantoprazole 40 mg tablet,delayed release (DR/EC) 40 mg PO DAILY ultra solo multivitamin capsule 1 cap PO DAILY buspirone 15 mg tablet 15 mg PO BID Qty: 60 1RF Rx Instructions: Take one tablet by mouth every morning and evening sertraline 20 mg/mL concentrate 50 mg PO DAILY Qty: 60 1RF Rx Instructions: Take 50 mg daily (2.5 ml) by mouth once daily prazosin 2 mg capsule 2 mg PO .q hs Qty: 30 1RF Rx Instructions: Take one capsule daily at bedtime ketoconazole 2 % shampoo 1 applic topical Q14D Qty: 120 6RF Rx Instructions: Lather into scalp 2-3 times weekly. Allowed to sit on scalp for 5 minutes before rinsing. triamcinolone acetonide 0.1 % ointment 1 applic topical BID Qty: 80 0RF Rx Instructions: Apply to affected area no more than 2 weeks/month. Not for use on face. clobetasol 0.05 % solution 1 applic topical DAILY Qty: 50 3RF Rx Instructions: Apply few drops to itchy areas of scalp as needed. Flovent HFA 220 mcg/actuation HFA aerosol inhaler 2 puff INHALATION BID Qty: 12 1RF Rx Instructions: In Cailin Friend absence's trazodone 100 mg tablet See Rx Instructions PO DAILY PRN (Reason: insomnia) Qty: 30 2RF Rx Instructions: Take 1/2 to one tablet daily at bedtime, if needed for insomnia montelukast 10 mg tablet 10 mg PO BEDTIME Rx Instructions: needs a new provider for refills tramadol 50 mg Tablet 50 mg PO Q6H PRN (Reason: Pain) Hold Instructions: Resume on 02/07/23. acetaminophen [Tylenol] 325 mg Tablet 325 mg PO QID PRN (Reason: pain) Discharge Orders: Discharge ED (Routine); Ordered 12/08/23 Ordered By: Cain Alvarado Referrals: Amarjit Mcintosh MD [Primary Care Provider] - Discharge Activity: Increase activity as tolerated Patient Instructions: Opioid Safety, Pain Management Activity Restrictions/Additional Instructions: Thank you for choosing [facility] for your healthcare needs today. Please realize this is an emergency room and that we are providing you with a medical screening exam and this may not be complete and all inclusive of all the testing and or work up that you may need to determine your ailment or severity of your illness. It is very important that you follow up as instructed or that you return to the Emergency Department should you have concerns or if your condition changes or worsens in any way. Follow-up with primary care doctor as needed you can continue to use Benadryl oral liquid 12 and half to 25 mg every 4-6 hours as needed return if you have further problems Coding Level of Care Code ED Chemist Inorganic for Jess Gamboa
[2023-12-08] MEDS: dexamethasone 10 mg/mL INJ IM (16:24)
[2023-12-08 16:41] VITALS: O2SAT 99
== END 2023-12-08 16:42 | disposition home or self-care (01) ==
PROVIDERS: Emergency Provider Family Medicine; PCP Family Medicine
DX: T78.1XXA Other adverse food reactions, not elsewhere classified, initial encounter (principal); X58.XXXA Exposure to other specified factors, initial encounter; Z91.011 Allergy to milk products
CPT/HCPCS: 96372; 99284; J1100

== ENCOUNTER 2023-12-17 00:07 | Emergency (ER) | payer MEDICAID, SELFPAY ==
[2023-11-02 10:24] VITALS: BP 133/79; BMI 42.8
[2023-12-17] VITALS (14 sets, daily range): BP systolic 109–147; BP diastolic 56–103; PULSE 50–90; RESP 16–20; TEMP 36.6; O2SAT 94–99; BMI 37.8
--- NOTE | 2023-12-17 00:23 | ED_ITS ---
Documented by User: DEYA Perales 12/17/23 00:45 HPI - Abdominal Pain 2 General: Chief Complaint: Nausea/Vomiting/Diarrhea Stated Complaint: N/V, abd pain Time Seen by Provider: 12/17/23 00:13 Source: patient Mode of arrival: EMS Limitations: no limitations History of Present Illness: Patient is a 38-year-old female presents to ED today with complaint of abdominal pain, nausea, vomiting. Patient states she is status post gastric bypass and hiatal hernia repair that was performed approximately a month ago at in [facility]. Patient states today she began her stage 4 diet and was able to eat solid foods. She states she ate an apple and drink a small amount of hot chocolate. She states about half an hour following this she began feeling sick to her stomach and vomited. Patient states immediately after vomiting she developed upper abdominal pain and feels like it messed something up . She has not had any further episodes of vomiting. She arrives to the ED today via EMS with stable vital signs. MD elicited complaint: abdominal pain Pertinent past history: other (gastric bypass surgery/hiatal hernia repair) Onset (ago): hour(s) Pain Consistency: intermittent Location: Epigastric Severity: moderate Quality: aching and sharp Radiation: none Migration to: no migration Exacerbating factors: eating and vomiting Relieving factors: nothing Associated Symptoms: Reports nausea and vomiting; Denies change in bowel habits, chills, dysuria, fever(s) and hematemesis Related Data: Date of Last Menstrual Period: 12/17/23 Patient : No Review of Systems 2 Const: Denies: fever(s), chills, body aches, fatigue or malaise Card: Denies: chest pain Resp: Denies: dyspnea GI: Reports: abdominal pain, nausea and vomiting; Denies: hematemesis or change in bowel habits : Denies: flank pain, difficulty voiding, dysuria, urinary urgency or urinary hesitancy Musc: Denies: back pain Neuro: Denies: headache(s) or dizziness PFSH ED 2 PFSH: Medical History FH: thyroid disease FH: colon cancer in relative <50 years old Grandfather at age 40 colon cancer , 01/2023 EGD small Hiatal hernia and polyp's removed, no colonoscopy yet Weight loss, intentional 11/21/2022 274 lbs, 10/07/2023 251 lbs History of prediabetes last A1c 5.4 in 2022 BMI 40.0-44.9, adult Major depressive disorder, recurrent, moderate Psychiatric care Ventral hernia Blood type O- Obesity Generalized anxiety disorder Post-traumatic stress disorder, chronic Migraine without aura Asthma Fibromyalgia Surgical History History of hernia repair (~08/2020) History of cholecystectomy 2016 History of bilateral breast reduction surgery (2007) 2007 breast reduction History of abdominoplasty (2012) 2013 Pannus removal, tummy mariana @ [facility] Family History Mother Hypertension Diabetes Graves disease Grandmother Stroke Maternal Diabetes Paternal Father Hypercholesterolemia Grandfather Cancer Maternal Grandfather: Mesothelioma Grandfather Colon cancer Paternal---dx age unknown Denies family history of Ovarian cancer Heart disease Breast cancer Uterine cancer Social History Smoking and tobacco/nicotine status: never used tobacco/nicotine Substance/Drug Use: never Additional social history: Well-balanced diet No substance abuse. Do you think of yourself as: Straight/Heterosexual Female Reproductive History: Date of last menstrual period: 12/17/23 Physical Exam 2 Const: COMMON NORMALS: no acute distress, patient oriented x3, no limitations and alert GENERAL APPEARANCE: cooperative NUTRITIONAL APPEARANCE: obese ORIENTATION/CONSCIOUSNESS: Yes awake, Yes oriented to person, Yes oriented to place and Yes oriented to time Eye: COMMON NORMALS: no scleral icterus Resp: COMMON NORMALS: normal respiratory effort and clear to auscultation bilaterally AUSCULTATION: clear to auscultation bilaterally Cardio: COMMON NORMALS: regular rate and regular rhythm RATE: regular rate RHYTHM: regular rhythm GI: COMMON NORMALS: Normal to inspection, nondistended, normoactive bowel sounds present, Soft to palpation and no masses INSPECTION: Yes normal to inspection and Yes other (surgical incisions are healed/clean) PALPATION: Yes Soft to palpation, Yes Tenderness to palpation present (GI) (upper abdomen), No Guarding due to palpation present (GI) and No Rigid due to palpation : COMMON NORMALS: Yes no CVA tenderness BLADDER/KIDNEY EXAM: Yes no CVA tenderness Back/Pelvis: COMMON NORMALS: no CVA tenderness and thoracic and lumbar spine normal to inspection Extremity: GENERAL: Yes normal exam except as noted Neuro: SAUD COMA SCALE: document GCS findings Washburn coma scale eye opening: Spontaneous [place] coma scale verbal response: Orientated [place]burn coma scale motor response: Obey commands Washburn coma scale total score: 15 COMMON NORMALS: patient oriented x3 SENSORIUM/ORIENTATION: Yes alert, Yes oriented to person, Yes oriented to place and Yes oriented to time Skin: COMMON NORMALS: no rashes or lesions noted GENERAL SKIN EXAM: no rashes or lesions noted Course 2 Vital Signs: Vital signs: Vital Signs Temperature 97.9 F 12/17/23 00:08 Pulse Rate 57 L 12/17/23 08:00 Respiratory Rate 20 H 12/17/23 07:42 Blood Pressure 117/68 12/17/23 08:00 Pulse Oximetry 96 12/17/23 08:00 Oxygen Delivery Me thod Room Air 12/17/23 00:08 MDM - Abdominal Pain Lab Data 12/17/23 00:03 12/17/23 00:03 Labs/Radiology: Radiology Impressions Abdomen/Pelvis CT 12/17/23 00:28 IMPRESSION: Prior gastric bypass with small bowel obstruction in the proximal small bowel with a transition point at the distal anastomosis. ADDENDUM: 12/17/23 0118 THIS REPORT CONTAINS FINDINGS THAT MAY BE CRITICAL TO PATIENT CARE. The findings were verbally communicated via telephone conference with Dr. Ken at 1:16 AM CDT on 12/17/2023. The findings were acknowledged and understood. Laboratory Results WBC 7.14 10^3/uL (3.29-11.43) 12/17/23 00:03 RBC 5.25 10^6/uL (3.85-5.65) 12/17/23 00:03 Hgb 14.40 g/dL (11.27-16.99) 12/17/23 00:03 Hct 44.3 % (36-47) 12/17/23 00:03 MCV 84.4 fl (85-98) L 12/17/23 00:03 MCH 27.4 pg (27-33) 12/17/23 00:03 MCHC 32.5 g/dL (30-55) 12/17/23 00:03 RDW 16.8 % (12.1-15.1) H 12/17/23 00:03 Plt Count 153 10^3/cmm (157-399) L 12/17/23 00:03 MPV 13.3 fL (7.4-10.4) H 12/17/23 00:03 Neut % (Auto) 63.4 % 12/17/23 00:03 Lymph % (Auto) 25.9 % 12/17/23 00:03 [place] % (Auto) 7.8 % 12/17/23 00:03 Eos % (Auto) 2.4 % 12/17/23 00:03 Baso % (Auto) 0.4 % 12/17/23 00:03 Neut # (Auto) 4.52 10^3/uL (1.8-7.7) 12/17/23 00:03 Lymph # (Auto) 1.9 10^3/uL (0.8-4.8) 12/17/23 00:03 [place] # (Auto) 0.6 10^3/uL (0.2-0.9) 12/17/23 00:03 Eos # (Auto) 0.2 10^3/uL (0.0-0.8) 12/17/23 00:03 Baso # (Auto) 0.0 10^3/uL (0.0-0.1) 12/17/23 00:03 Nucleated RBC % (auto) 0 % 12/17/23 00:03 Nucleated RBCs # 0.0 /100WBC 12/17/23 00:03 Sodium 143 mmol/L (136-145) 12/17/23 00:03 Potassium 3.5 mmol/L (3.5-5.1) 12/17/23 00:03 Chloride 108 mmol/L (98-107) H 12/17/23 00:03 Carbon Dioxide 22 mmol/L (22-29) 12/17/23 00:03 Anion Gap 16.5 (5-19) 12/17/23 00:03 BUN 16 mg/dL (6-20) 12/17/23 00:03 Creatinine 0.8 mg/dL (0.5-0.9) 12/17/23 00:03 GFR Calculation 79.4 mL/min (90-130) L 12/17/23 00:03 Glucose 103 mg/dL (65-115) 12/17/23 00:03 Calculated Osmolality 297 mOsm/kg (285-295) H 12/17/23 00:03 Calcium 9.2 mg/dL (8.5-10.5) 12/17/23 00:03 Total Bilirubin 0.9 mg/dL (0.15-1.2) 12/17/23 00:03 AST 17 U/L (0-32) 12/17/23 00:03 ALT 21 U/L (0-33) 12/17/23 00:03 Alkaline Phosphatase 126 U/L (35-105) H 12/17/23 00:03 Total Protein 6.8 g/dL (6.6-8.7) 12/17/23 00:03 Albumin 4.1 g/dL (3.5-5.2) 12/17/23 00:03 Globulin 2.7 g/dL (1.3-4.6) 12/17/23 00:03 Discharge Plan Discharge Patient Disposition: Xfer Short-Term Hosp Clinical Impression: Small bowel obstruction, Abdominal pain Postoperative surgical complication involving digestive system Qualifiers: Intestinal obstruction extent: complete Condition: Stable Referrals: Kentrell Ann [Primary Care Provider] - Patient Instructions: Abdominal Pain (ED) Coding Level of Care Code ED Mechanical Car Checker for Chg Fwd Documented by User: Cali Ken MD 12/18/23 05:56 HPI - Abdominal Pain 2 General: Chief Complaint: Nausea/Vomiting/Diarrhea Stated Complaint: N/V, abd pain Time Seen by Provider: 12/17/23 00:13 PFSH ED 2 PFSH: Medical History FH: thyroid disease FH: colon cancer in relative <50 years old Grandfather at age 40 colon cancer , 01/2023 EGD small Hiatal hernia and polyp's removed, no colonoscopy yet Weight loss, intentional 11/21/2022 274 lbs, 10/07/2023 251 lbs History of prediabetes last A1c 5.4 in 2022 BMI 40.0-44.9, adult Major depressive disorder, recurrent, moderate Psychiatric care Ventral hernia Blood type O- Obesity Generalized anxiety disorder Post-traumatic stress disorder, chronic Migraine without aura Asthma Fibromyalgia Surgical History History of hernia repair (~08/2020) History of cholecystectomy 2016 History of bilateral breast reduction surgery (2007) 2007 breast reduction History of abdominoplasty (2012) 2013 Pannus removal, tummy mariana @ [facility] Family History Mother Hypertension Diabetes Graves disease Grandmother Stroke Maternal Diabetes Paternal Father Hypercholesterolemia Grandfather Cancer Maternal Grandfather: Mesothelioma Grandfather Colon cancer Paternal---dx age unknown Denies family history of Ovarian cancer Heart disease Breast cancer Uterine cancer Social History Smoking and tobacco/nicotine status: never used tobacco/nicotine Substance/Drug Use: never Additional social history: Well-balanced diet No substance abuse. Do you think of yourself as: Straight/Heterosexual Physical Exam 2 Neuro: SAUD COMA SCALE: document GCS findings Saud coma scale total score: 15 Course 2 Vital Signs: Vital signs: Vital Signs Temperature 97.9 F 12/17/23 00:08 Pulse Rate 57 L 12/17/23 08:00 Respiratory Rate 20 H 12/17/23 07:42 Blood Pressure 117/68 12/17/23 08:00 Pulse Oximetry 96 12/17/23 08:00 Oxygen Delivery Me thod Room Air 12/17/23 00:08 MDM - Abdominal Pain Medical Decision Making I discussed the patient's history of present illness, physical exam findings, pertinent labs, pertinent radiographic exams and plan of care with the midlevel provider. I did personally have a [id number] evaluation and discussion with the patient regarding the plan of care and the need for further admission/transfer. I discussed the findings of the CT scan abdomen pelvis with the patient and at her request contacted her bariatric surgeon in [facility]. He did except the patient for ER to ER transfer. He is advised that he does not want a nasogastric tube placed. We have contacted [facility] to request transfer and they advised that the earliest they could complete the transfer is 7 AM. Medical Records I reviewed the patient's medical records. Lab Data I reviewed the patient's lab results. 12/17/23 00:03 12/17/23 00:03 Labs/Radiology: Radiology Impressions Abdomen/Pelvis CT 12/17/23 00:28 IMPRESSION: Prior gastric bypass with small bowel obstruction in the proximal small bowel with a transition point at the distal anastomosis. ADDENDUM: 12/17/23 0118 THIS REPORT CONTAINS FINDINGS THAT MAY BE CRITICAL TO PATIENT CARE. The findings were verbally communicated via telephone conference with Dr. Ken at 1:16 AM CDT on 12/17/2023. The findings were acknowledged and understood. Laboratory Results WBC 7.14 10^3/uL (3.29-11.43) 12/17/23 00:03 RBC 5.25 10^6/uL (3.85-5.65) 12/17/23 00:03 Hgb 14.40 g/dL (11.27-16.99) 12/17/23 00:03 Hct 44.3 % (36-47) 12/17/23 00:03 MCV 84.4 fl (85-98) L 12/17/23 00:03 MCH 27.4 pg (27-33) 12/17/23 00:03 MCHC 32.5 g/dL (30-55) 12/17/23 00:03 RDW 16.8 % (12.1-15.1) H 12/17/23 00:03 Plt Count 153 10^3/cmm (157-399) L 12/17/23 00:03 MPV 13.3 fL (7.4-10.4) H 12/17/23 00:03 Neut % (Auto) 63.4 % 12/17/23 00:03 Lymph % (Auto) 25.9 % 12/17/23 00:03 [place] % (Auto) 7.8 % 12/17/23 00:03 Eos % (Auto) 2.4 % 12/17/23 00:03 Baso % (Auto) 0.4 % 12/17/23 00:03 Neut # (Auto) 4.52 10^3/uL (1.8-7.7) 12/17/23 00:03 Lymph # (Auto) 1.9 10^3/uL (0.8-4.8) 12/17/23 00:03 [place] # (Auto) 0.6 10^3/uL (0.2-0.9) 12/17/23 00:03 Eos # (Auto) 0.2 10^3/uL (0.0-0.8) 12/17/23 00:03 Baso # (Auto) 0.0 10^3/uL (0.0-0.1) 12/17/23 00:03 Nucleated RBC % (auto) 0 % 12/17/23 00:03 Nucleated RBCs # 0.0 /100WBC 12/17/23 00:03 Sodium 143 mmol/L (136-145) 12/17/23 00:03 Potassium 3.5 mmol/L (3.5-5.1) 12/17/23 00:03 Chloride 108 mmol/L (98-107) H 12/17/23 00:03 Carbon Dioxide 22 mmol/L (22-29) 12/17/23 00:03 Anion Gap 16.5 (5-19) 12/17/23 00:03 BUN 16 mg/dL (6-20) 12/17/23 00:03 Creatinine 0.8 mg/dL (0.5-0.9) 12/17/23 00:03 GFR Calculation 79.4 mL/min (90-130) L 12/17/23 00:03 Glucose 103 mg/dL (65-115) 12/17/23 00:03 Calculated Osmolality 297 mOsm/kg (285-295) H 12/17/23 00:03 Calcium 9.2 mg/dL (8.5-10.5) 12/17/23 00:03 Total Bilirubin 0.9 mg/dL (0.15-1.2) 12/17/23 00:03 AST 17 U/L (0-32) 12/17/23 00:03 ALT 21 U/L (0-33) 12/17/23 00:03 Alkaline Phosphatase 126 U/L (35-105) H 12/17/23 00:03 Total Protein 6.8 g/dL (6.6-8.7) 12/17/23 00:03 Albumin 4.1 g/dL (3.5-5.2) 12/17/23 00:03 Globulin 2.7 g/dL (1.3-4.6) 12/17/23 00:03 All radiology interpretation(s) finalized by discharge Discharge Plan Discharge Patient Disposition: Xfer Short-Term Hosp Clinical Impression: Small bowel obstruction, Abdominal pain Postoperative surgical complication involving digestive system Qualifiers: Intestinal obstruction extent: complete Condition: Stable Referrals: Kentrell Ann [Primary Care Provider] - Patient Instructions: Abdominal Pain (ED) Coding Level of Care Code ED Mechanical Car Checker for Jess Gamboa
--- NOTE | 2023-12-17 00:28 | CTR_ITS ---
PROCEDURE INFORMATION: Exam: CT Abdomen And Pelvis With Contrast Exam date and time: 12/17/2023 12:53 AM Age: 38 years old Clinical indication: Abdominal pain; Acute; Prior surgery; Surgery date: 1-6 months; Surgery type: Gastric bypass, hernia; Additional info: Vomited now abd pain; Recent gastric bypass/hiatal repair TECHNIQUE: Imaging protocol: Computed tomography of the abdomen and pelvis with contrast. Radiation optimization: All CT scans at this facility use at least one of these dose optimization techniques: automated exposure control; mA and/or kV adjustment per patient size (includes targeted exams where dose is matched to clinical indication); or iterative reconstruction. Contrast material: OMNI 350; Contrast volume: 100 ml; Contrast route: INTRAVENOUS (IV); COMPARISON: CT kidney stone [id number] 02/23/2023 1:00 AM RADIATION DOSE METRICS: Total DLP (mGy-cm): 936 FINDINGS: Liver: Normal. No mass. Gallbladder and bile ducts: The gallbladder is absent. Pancreas: Normal. No ductal dilation. Spleen: Normal. No splenomegaly. Adrenal glands: Normal. No mass. Kidneys and ureters: Normal. No hydronephrosis. Stomach and bowel: Prior gastric bypass with small bowel obstruction in the proximal small bowel with a transition point at the distal anastomosis. Appendix: No evidence of appendicitis. Intraperitoneal space: Unremarkable. No free air. No significant fluid collection. Vasculature: Unremarkable. No abdominal aortic aneurysm. Lymph nodes: Unremarkable. No enlarged lymph nodes. Urinary bladder: Unremarkable as visualized. Reproductive: Unremarkable as visualized. Bones/joints: Unremarkable. No acute fracture. Soft tissues: Unremarkable. CT/CT abdomen pelvis w con* [id number] IMPRESSION: Prior gastric bypass with small bowel obstruction in the proximal small bowel with a transition point at the distal anastomosis.
[2023-12-17 00:33] LABS: Basophils % 0.4 %; Eosinophils # 0.2 10^3/uL (0.0-0.8); Eosinophils % 2.4 %; Hematocrit 44.3 % (36-47); Lymphocytes # 1.9 10^3/uL (0.8-4.8); Lymphocytes % 25.9 %; Mean Corpuscular HGB Conc 32.5 g/dL (30-55); Mean Corpuscular Hemoglobin 27.4 pg (27-33); Mean Corpuscular Volume 84.4 fl (85-98); Mean Platelet Volume 13.3 fL (7.4-10.4); Monocytes # 0.6 10^3/uL (0.2-0.9); Monocytes % 7.8 %; Neutrophils # 4.52 10^3/uL (1.8-7.7); Neutrophils % 63.4 %; Nucleated Red Blood Cells % 0 %; Platelet Count 153 10^3/cmm (157-399); Red Blood Count 5.25 10^6/uL (3.85-5.65); Red Cell Distribution Width 16.8 % (12.1-15.1); White Blood Count 7.14 10^3/uL (3.29-11.43)
[2023-12-17] MEDS: promethazine 25 mg/mL SDV 1 mL IM (00:41)
[2023-12-17] MEDS: morphine 4 mg/mL SDV 1 mL IVP (00:42)
[2023-12-17 00:43] LABS: Alanine Aminotransferase 21 U/L (0-33); Albumin Level 4.1 g/dL (3.5-5.2); Alkaline Phosphatase 126 U/L (35-105); Anion Gap 16.5 (5-19); Aspartate Amino Transferase 17 U/L (0-32); Blood Urea Nitrogen 16 mg/dL (6-20); Calcium 9.2 mg/dL (8.5-10.5); Carbon Dioxide 22 mmol/L (22-29); Chloride 108 mmol/L (98-107); Creatinine Clr Calc Pharmacy 107.3361; Globulin 2.7 g/dL (1.3-4.6); Glomerular Filtration Rate 79.4 mL/min (90-130); Glucose 103 mg/dL (65-115); Osmolality Calculated 297 mOsm/kg (285-295); Potassium 3.5 mmol/L (3.5-5.1); Sodium 143 mmol/L (136-145); Total Bilirubin 0.9 mg/dL (0.15-1.2); Total Protein 6.8 g/dL (6.6-8.7)
[2023-12-17] MEDS: iohexol 350 mg/mL 500 mL Btl (per mL) IV (00:52)
--- NOTE | 2023-12-17 02:59 | PC.NURSE ---
NG tube was not placed due to history of gastric bypass surgery. Dr. Ken consulted bariatric surgery which agreed with this.
--- NOTE | 2023-12-17 03:12 | PC.NURSE ---
Ulices Zimmerman contacted for transport. Stated they don't have transport until after 0700
== END 2023-12-17 08:09 | disposition short-term general hospital (02) ==
PROVIDERS: Physician Assistant; Emergency Provider Internal Medicine; PCP Family Medicine
DX: K95.89 Other complications of other bariatric procedure (principal); K91.32 Postprocedural complete intestinal obstruction; Z98.84 Bariatric surgery status
CPT/HCPCS: 74177; 80053; 85025; 96372; 96374; 99285; J2270; J2550; Q9967

== ENCOUNTER → 2024-03-04 09:47 | Outpatient (BNVA) | payer MEDICAID, OTHER, SELFPAY ==
[2023-11-02 10:24] VITALS: BP 133/79; BMI 42.8
== END ==
PROVIDERS: PCP Family Medicine; Visit Provider Nurse Practitioner Family
DX: L40.0 Psoriasis vulgaris (principal); D22.5 Melanocytic nevi of trunk; L91.0 Hypertrophic scar; B35.3 Tinea pedis; B35.1 Tinea unguium
CPT/HCPCS: 99214

== ENCOUNTER → 2024-03-15 07:51 | Outpatient (BNVA) | payer MEDICAID, SELFPAY ==
[2023-11-02 10:24] VITALS: BP 133/79; BMI 42.8
== END ==
PROVIDERS: PCP Family Medicine; Referring Provider Family Medicine; Visit Provider Psychiatry & Neurology Neurology
DX: R56.9 Unspecified convulsions (principal)
CPT/HCPCS: 99203

== ENCOUNTER 2024-04-18 09:05 | Outpatient (CLI) | payer MEDICAID, SELFPAY ==
[2023-11-02 10:24] VITALS: BP 133/79; BMI 42.8
--- NOTE | 2024-04-18 09:30 | MR_ITS ---
WS: [id number] MRI BRAIN WITH AND WITHOUT CONTRAST HISTORY: R56.9 - Unspecified convulsions COMPARISON: 12/03/2018 TECHNIQUE: Multiplanar imaging performed through the brain with MultiHance 17 ml's IV. No acute infarcts are seen. Case-white matter differentiation is well preserved. Normal hippocampal f ormations. No significant atrophy or sclerosis. No cortical abnormality. Normal appearance of the gra y-white matter, similar to 2019. No infarct. No susceptibility artifacts or prior lacunar infarcts. Ventricles and extra-axial spaces are normal. Clivus and pituitary gland are normal. Visualized posterior fossa and brainstem are also normal. Postcontrast images are negative for masses or vascular malformations. Dural venous sinuses are normal. Paranasal sinuses: Well aerated with no significant disease. Mastoid air cells: Normal. Calvarium and scalp: Normal. MR/MR head wo/w con [id number] IMPRESSION: 1. MRI brain is very similar to the study from 12/03/2018. 2. No acute infarcts or hemorrhage. No atrophy or volume loss. 3. Normal hippocampal formations.
[2024-04-18] MEDS: gadobenate dimeglumine 20 mL vial 17 ML IV (10:20)
== END 2024-04-18 09:06 | disposition home or self-care (01) ==
PROVIDERS: PCP Family Medicine; Visit Provider Psychiatry & Neurology Neurology
DX: R56.9 Unspecified convulsions (principal)
CPT/HCPCS: 70553; A9577

== ENCOUNTER 2024-04-18 10:42 | Outpatient (CLI) | payer MEDICAID, SELFPAY ==
[2023-11-02 10:24] VITALS: BP 133/79; BMI 42.8
[2024-04-18 11:56] LABS: Alkaline Phosphatase 149 U/L (35-105); Free T4 Free Thyroxine 0.85 ng/dL (0.82-1.77); Magnesium 2.1 mg/dL (1.7-2.3); T3 Free 2.3 PG/ML (2.0-4.4); Thyroid Stimulating Hormone 1.14 uIU/mL (0.27-4.20)
[2024-04-18 12:03] LABS: Folate Level 11.1 ng/mL (4.8-37.3)
[2024-04-18 13:07] LABS: 25 Hydroxy Vitamin D 48 ng/mL (30-100); Vitamin B12 457 pg/mL (232-1245)
[2024-04-20 08:10] LABS: Thyroid Peroxidase Antobodies <1 IU/mL (<9)
[2024-04-20 17:28] LABS: Methylmalonic Acid 157 nmol/L (55-335)
== END 2024-04-18 10:43 | disposition home or self-care (01) ==
LOC: LAB 10:43
PROVIDERS: PCP Family Medicine; Visit Provider Psychiatry & Neurology Neurology
DX: R56.9 Unspecified convulsions (principal)
CPT/HCPCS: 36415; 82306; 82607; 82746; 83735; 83921; 84075; 84439; 84443; 84481; 86376

== ENCOUNTER → 2024-06-21 10:29 | Outpatient (BNVA) | payer MEDICAID, SELFPAY ==
[2023-11-02 10:24] VITALS: BP 133/79; BMI 42.8
== END ==
PROVIDERS: PCP Family Medicine
DX: N92.6 Irregular menstruation, unspecified (principal); Z32.02 Encounter for pregnancy test, result negative
CPT/HCPCS: 81025; 84702

== ENCOUNTER → 2024-07-05 07:51 | Outpatient (BNVA) | payer MEDICAID, SELFPAY ==
[2023-11-02 10:24] VITALS: BP 133/79; BMI 42.8
== END ==
PROVIDERS: PCP Family Medicine; Referring Provider Psychiatry & Neurology Neurology; Visit Provider Psychiatry & Neurology Neurology
DX: R55 Syncope and collapse (principal); R56.9 Unspecified convulsions
CPT/HCPCS: 95819

== ENCOUNTER → 2024-07-14 14:06 | Outpatient (BNVA) | payer OTHER, SELFPAY ==
[2023-11-02 10:24] VITALS: BP 133/79; BMI 42.8
== END ==
PROVIDERS: PCP Family Medicine; Visit Provider Nurse Practitioner Psychiatric/Mental Health
DX: Z03.89 Encounter for observation for other suspected diseases and conditions ruled out (principal); Z79.899 Other long term (current) drug therapy
CPT/HCPCS: 81025

== ENCOUNTER 2024-07-19 02:55 | Emergency (ER) | payer MEDICAID, SELFPAY ==
[2023-11-02 10:24] VITALS: BP 133/79; BMI 42.8
[2024-07-19 02:56] VITALS: BP 149/91; PULSE 89; RESP 16; TEMP 36.9; O2SAT 99; BMI 29.7
[2024-07-19 03:17] LABS: Basophils # 0.1 10^3/uL (0.0-0.1); Basophils % 0.6 %; Eosinophils # 0.2 10^3/uL (0.0-0.8); Eosinophils % 2.4 %; Hematocrit 40.4 % (36-47); Lymphocytes # 1.6 10^3/uL (0.8-4.8); Lymphocytes % 17.6 %; Mean Corpuscular HGB Conc 32.7 g/dL (30-55); Mean Corpuscular Hemoglobin 27.6 pg (27-33); Mean Corpuscular Volume 84.3 fl (85-98); Monocytes # 0.5 10^3/uL (0.2-0.9); Monocytes % 5.9 %; Neutrophils % 73.3 %; Nucleated Red Blood Cells % 0 %; Platelet Count 209 10^3/cmm (157-399); Red Blood Count 4.79 10^6/uL (3.85-5.65); Red Cell Distribution Width 13.7 % (12.1-15.1); White Blood Count 8.86 10^3/uL (3.29-11.43)
[2024-07-19 03:19] LABS: Bilirubin Urine Negative (Negative); Blood Urine 1+ (Negative); Glucose Urine UA Negative (Normal); Ketones Urine Trace (Negative); Leukocyte Esterase Urine Trace (Negative); Nitrate Urine Negative (Negative); Protein Urine Trace (Negative); Urine Appearance Clear (CLEAR); Urine Color Dark Yellow (Yellow)
[2024-07-19 03:28] LABS: Calcium Oxalate Crystals Urine 15-25 /hpf; Mucus Urine 3+ /hpf; RBC Urine 0-4 /hpf (0-2); Specific Gravity, Urine 1.035 (1.005-1.030); Squamous Epithelial Cell Urine 0-4 /hpf (0-5)
[2024-07-19 03:29] LABS: Add Urine Culture? No
[2024-07-19 03:36] LABS: HCG Quantitative 1.18 mIU/mL
[2024-07-19 03:47] LABS: Alanine Aminotransferase 12 U/L (0-33); Alkaline Phosphatase 157 U/L (35-105); Anion Gap 13.5 (5-19); Aspartate Amino Transferase 16 U/L (0-32); Blood Urea Nitrogen 14 mg/dL (6-20); Calcium 8.5 mg/dL (8.5-10.5); Carbon Dioxide 25 mmol/L (22-29); Chloride 107 mmol/L (98-107); Globulin 2.8 g/dL (1.3-4.6); Glomerular Filtration Rate 79.4 mL/min (90-130); Glucose 104 mg/dL (65-115); Lipase 14 U/L (13-60); Osmolality Calculated 295 mOsm/kg (285-295); Potassium 3.5 mmol/L (3.5-5.1); Sodium 142 mmol/L (136-145); Total Bilirubin 0.7 mg/dL (0.15-1.2); Total Protein 6.8 g/dL (6.6-8.7)
--- NOTE | 2024-07-19 03:57 | W.ED.NAVMDI ---
HPI - Nausea/Vomiting/Diarrhea General: Chief complaint: Nausea/Vomiting/Diarrhea Stated complaint: n/v Time Seen by Provider: 07/19/24 02:58 History of Present Illness: 38-year-old female with history of gastric bypass surgery who presents to the emergency room by ambulance with nausea and vomiting. She says she thinks she is approximately 5 weeks . Having some epigastric pain. No vaginal discharge. No vaginal bleeding. No fevers. No shortness of breath. No chest pain Related Data Home Medications Medication Instructions Recorded Confirmed albuterol sulfate 90 mcg/actuation 2 puff inhalation Q6H PRN 09/20/19 07/14/24 aerosol inhaler (ProAir HFA) Shortness Of Breath Or Wheezing fluticasone propionate 50 2 spray intranasal BID 09/20/19 07/14/24 mcg/actuation nasal spray,suspension (Allergy Relief (fluticasone)) montelukast 10 mg tablet 10 mg PO BEDTIME 06/05/22 07/14/24 tramadol 50 mg tablet 50 mg PO Q6H PRN Pain 06/05/22 07/14/24 acetaminophen 325 mg tablet 325 mg PO QID PRN pain 01/26/23 07/14/24 (Tylenol) ultra solo multivitamin 1 cap PO DAILY 12/01/23 07/14/24 calcium 250 mg-D3 500 unit-vit K tab PO 04/04/24 07/14/24 25 cbu-yojgojght-ixaxju-borate tablet Previous Rx's Medication Instructions Recorded cetirizine 10 mg tablet (Zyrtec) 10 mg PO DAILY #30 tabs 11/30/19 fluticasone propionate 220 2 puff inhalation BID #12 grams 12/26/19 mcg/actuation HFA aerosol inhaler (Flovent HFA) clobetasol 0.05 % scalp solution 1 applic topical DAILY #50 mL 11/25/22 ketoconazole 2 % shampoo 1 applic topical Q14D #120 mL 11/25/22 triamcinolone acetonide 0.1 % 1 applic topical BID #80 grams 11/25/22 topical ointment buspirone 10 mg tablet 20 mg (2 x 10 mg) PO BID #120 tabs 04/04/24 sertraline 50 mg tablet 50 mg PO .q am #30 tabs 04/04/24 szornhzl-esuqoa-HW-thonzonm 3.3 4 drp otic (ear) TID #10 mL 07/19/24 mg-3 mg-10 mg-0.5 mg/mL ear drops,susp (Cortisporin-TC) ondansetron 8 mg disintegrating 8 mg PO Q6H #14 tabs 07/19/24 tablet Allergies Allergy/AdvReac Type Severity Reaction Status Date / Time aspartame Allergy Severe Headache Verified 07/19/24 03:01 aspirin Allergy ADR/ALGY-Hy Verified 07/19/24 03:01 potension [place]edar[place] Allergy runny nose Verified 07/19/24 03:01 imipramine Allergy Rash Verified 07/19/24 03:01 milk Allergy bloating Verified 07/19/24 03:01 egg whites Allergy Mild Unknown Uncoded 07/19/24 03:01 Sunblock Allergy Unknown Uncoded 07/19/24 03:01 Review of Systems Narrative: Constitutional symptoms: Negative except as documented in HPI. Skin symptoms: Negative except as documented in HPI. Eye symptoms: Negative except as documented in HPI. ENMT symptoms: Negative except as documented in HPI. Respiratory symptoms: Negative except as documented in HPI. Cardiovascular symptoms: Negative except as documented in HPI. Gastrointestinal symptoms: Negative except as documented in HPI. Genitourinary symptoms: Negative except as documented in HPI. Musculoskeletal symptoms: Negative except as documented in HPI. Neurologic symptoms: Negative except as documented in HPI. Psychiatric symptoms: Negative except as documented in HPI. Endocrine symptoms: Negative except as documented in HPI. PFSH ED PFSH: Medical History FH: thyroid disease FH: colon cancer in relative <50 years old Grandfather at age 40 colon cancer , 01/2023 EGD small Hiatal hernia and polyp's removed, no colonoscopy yet Weight loss, intentional 11/21/2022 274 lbs, 10/07/2023 251 lbs History of prediabetes last A1c 5.4 in 2022 BMI 40.0-44.9, adult Major depressive disorder, recurrent, moderate Psychiatric care Ventral hernia Blood type O- Obesity Generalized anxiety disorder Post-traumatic stress disorder, chronic Migraine without aura Asthma Fibromyalgia Surgical History History of hernia repair (~08/2020) History of cholecystectomy 2016 History of bilateral breast reduction surgery (2008) 2008 breast reduction History of abdominoplasty (2012) 2013 Pannus removal, karen peña @ [facility] Family History Mother Hypertension Diabetes Graves disease Grandmother Stroke Maternal Diabetes Paternal Father Hypercholesterolemia Grandfather Cancer Maternal Grandfather: Mesothelioma Grandfather Colon cancer Paternal---dx age unknown Denies family history of Ovarian cancer Heart disease Breast cancer Uterine cancer Social History Smoking and tobacco/nicotine status: never used tobacco/nicotine Substance/Drug Use: never Additional social history: Well-balanced diet No substance abuse. Do you think of yourself as: Straight/Heterosexual Female Reproductive History: Date of last menstrual period: 06/12/24 Physical Exam Narrative: EXAM NARRATIVE: General: Alert, no acute distress. Skin: Warm, dry. Head: Normocephalic, atraumatic. Neck: Supple, trachea midline. Eye: Extraocular movements are intact. Ears, nose, mouth and throat: mucosa moist. Cardiovascular: Regular, Normal peripheral perfusion. Respiratory: Lungs are clear to auscultation, respirations are non-labored, breath sounds are equal, Symmetrical chest wall expansion. Gastrointestinal: Soft, some epigastric pain, Non distended Musculoskeletal: Normal ROM, no deformity. Neurological: Alert and oriented, No focal neurological deficit observed. Psychiatric: Cooperative, appropriate mood & affect. Course Vital Signs: Vital signs: Vital Signs Temperature 98.4 F 07/19/24 02:56 Pulse Rate 89 07/19/24 02:56 Respiratory Rate 16 07/19/24 02:56 Blood Pressure 149/91 07/19/24 02:56 Pulse Oximetry 99 07/19/24 02:56 Oxygen Delivery Me thod Room Air 07/19/24 02:56 MDM - Nausea/Vomiting/Diarrhea Medical Decision Making Medical decision making: Differential diagnosis for this patient with nausea and vomiting including but not limited to and based on the above HPI, review of systems and physical exam: Urinary tract infection. Appendicitis. Cholecystis. colitis. small bowel obstruction. crohn's flare. pancreatitis. gastritis. peptic ulcer. cyclic vomiting. Viral illness. Influenza. COVID. - Workup - labwork and imaging ordered to evaluate, rule in and rule out above pathologies. Lab Review: Laboratory results were reviewed and interpreted by myself the emergency room physician. Lab work is fairly unremarkable. No leukocytosis. No anemia. No renal failure. Urine is not infected but does appear concentrated. Patient's serum test is negative at 1. However given that she feels like she is early in we will have her retest. Not going to do any imaging today with the risk that she could be early . I reviewed the patient's medical record. Reexamination: Patient remained stable. No increased work of breathing. No altered mental status. No focal motor deficits. Assessment and plan: Vomiting ?Patient received Zofran in the ambulance and had no further nausea or vomiting. - Discharged home - Discussed plan with patient. Answered any questions. - Evaluation and treatment of this problem were appropriate in the emergency setting. Lab Data 07/19/24 03:10 07/19/24 03:10 Laboratory Results WBC 8.86 10^3/uL (3.29-11.43) 07/19/24 03:10 RBC 4.79 10^6/uL (3.85-5.65) 07/19/24 03:10 Hgb 13.20 g/dL (11.27-16.99) 07/19/24 03:10 Hct 40.4 % (36-47) 07/19/24 03:10 MCV 84.3 fl (85-98) L 07/19/24 03:10 MCH 27.6 pg (27-33) 07/19/24 03:10 MCHC 32.7 g/dL (30-55) 07/19/24 03:10 RDW 13.7 % (12.1-15.1) 07/19/24 03:10 Plt Count 209 10^3/cmm (157-399) 07/19/24 03:10 MPV 12.0 fL (7.4-10.4) H 07/19/24 03:10 Neut % (Auto) 73.3 % 07/19/24 03:10 Lymph % (Auto) 17.6 % 07/19/24 03:10 [place] % (Auto) 5.9 % 07/19/24 03:10 Eos % (Auto) 2.4 % 07/19/24 03:10 Baso % (Auto) 0.6 % 07/19/24 03:10 Neut # (Auto) 6.50 10^3/uL (1.8-7.7) 07/19/24 03:10 Lymph # (Auto) 1.6 10^3/uL (0.8-4.8) 07/19/24 03:10 Winn # (Auto) 0.5 10^3/uL (0.2-0.9) 07/19/24 03:10 Eos # (Auto) 0.2 10^3/uL (0.0-0.8) 07/19/24 03:10 Baso # (Auto) 0.1 10^3/uL (0.0-0.1) 07/19/24 03:10 Nucleated RBC % (auto) 0 % 07/19/24 03:10 Nucleated RBCs # 0.0 /100WBC 07/19/24 03:10 Sodium 142 mmol/L (136-145) 07/19/24 03:10 Potassium 3.5 mmol/L (3.5-5.1) 07/19/24 03:10 Chloride 107 mmol/L (98-107) 07/19/24 03:10 Carbon Dioxide 25 mmol/L (22-29) 07/19/24 03:10 Anion Gap 13.5 (5-19) 07/19/24 03:10 BUN 14 mg/dL (6-20) 07/19/24 03:10 Creatinine 0.8 mg/dL (0.5-0.9) 07/19/24 03:10 GFR Calculation 79.4 mL/min (90-130) L 07/19/24 03:10 Glucose 104 mg/dL (65-115) 07/19/24 03:10 Calculated Osmolality 295 mOsm/kg (285-295) 07/19/24 03:10 Calcium 8.5 mg/dL (8.5-10.5) 07/19/24 03:10 Total Bilirubin 0.7 mg/dL (0.15-1.2) 07/19/24 03:10 AST 16 U/L (0-32) 07/19/24 03:10 ALT 12 U/L (0-33) 07/19/24 03:10 Alkaline Phosphatase 157 U/L (35-105) H 07/19/24 03:10 Total Protein 6.8 g/dL (6.6-8.7) 07/19/24 03:10 Albumin 4.0 g/dL (3.5-5.2) 07/19/24 03:10 Globulin 2.8 g/dL (1.3-4.6) 07/19/24 03:10 Lipase 14 U/L (13-60) 07/19/24 03:10 Ser , Semi-Qnt 1.18 mIU/mL 07/19/24 03:10 Urine Color Dark yellow (Yellow) A 07/19/24 03:10 Urine Appearance Clear (CLEAR) 07/19/24 03:10 Urine pH 6.0 (5-7) 07/19/24 03:10 Ur Specific [place] 1.035 (1.005-1.030) H 07/19/24 03:10 Urine Protein Trace (Negative) A 07/19/24 03:10 Urine Glucose (UA) Negative (Normal) 07/19/24 03:10 Urine Ketones Trace (Negative) 07/19/24 03:10 Urine Blood 1+ (Negative) A 07/19/24 03:10 Urine Nitrate Negative (Negative) 07/19/24 03:10 Urine Bilirubin Negative (Negative) 07/19/24 03:10 Urine Urobilinogen 1.0 mg/dL (Negative) 07/19/24 03:10 Ur Leukocyte Esterase Trace (Negative) A 07/19/24 03:10 Urine RBC 0-4 /hpf (0-2) H 07/19/24 03:10 Urine WBC None /hpf (0-5) 07/19/24 03:10 Ur Squamous Epith Cells 0-4 /hpf (0-5) H 07/19/24 03:10 Calcium Oxalate Crystal 15-25 /hpf H 07/19/24 03:10 Amorphous Sediment Not Reportable 07/19/24 03:10 Urine Bacteria None /hpf (NONE) 07/19/24 03:10 Urine Mucus 3+ /hpf 07/19/24 03:10 No radiology studies performed this visit Discharge Plan Discharge Patient Disposition: Home Clinical Impression: Vomiting Condition: Stable Prescriptions: New Cortisporin-TC 3.3-3-10-0.5 mg/mL drops,suspension 4 drp otic (ear) TID Qty: 10 0RF ondansetron 8 mg tablet,disintegrating 8 mg PO Q6H Qty: 14 0RF Rx Instructions: Take 1/2-1 tab every 6 hours as needed for nausea and vomiting No Action cetirizine [Zyrtec] 10 mg tablet 10 mg PO DAILY Qty: 30 2RF albuterol sulfate [ProAir HFA] 90 mcg/actuation HFA aerosol inhaler 2 puff INHALATION Q6H PRN (Reason: Shortness Of Breath Or Wheezing) fluticasone propionate [Allergy Relief (fluticasone)] 50 mcg/actuation spray,suspension 2 spray INTRANASAL BID ultra solo multivitamin capsule 1 cap PO DAILY Ca [id number]-Bszi-ieagz-ika bor 250 mg calcium -500 unit tablet PO buspirone 10 mg tablet 20 mg PO BID Qty: 120 2RF Rx Instructions: Take 2 tablets morning and evening; stop 15 mg dose sertraline 50 mg tablet 50 mg PO .q am Qty: 30 2RF Rx Instructions: Take 1 tablet by mouth every morning ketoconazole 2 % shampoo 1 applic topical Q14D Qty: 120 6RF Rx Instructions: Lather into scalp 2-3 times weekly. Allowed to sit on scalp for 5 minutes before rinsing. triamcinolone acetonide 0.1 % ointment 1 applic topical BID Qty: 80 0RF Rx Instructions: Apply to affected area no more than 2 weeks/month. Not for use on face. clobetasol 0.05 % solution 1 applic topical DAILY Qty: 50 3RF Rx Instructions: Apply few drops to itchy areas of scalp as needed. Flovent HFA 220 mcg/actuation HFA aerosol inhaler 2 puff INHALATION BID Qty: 12 1RF Rx Instructions: In [place] Friend absence's montelukast 10 mg tablet 10 mg PO BEDTIME Rx Instructions: needs a new provider for refills tramadol 50 mg Tablet 50 mg PO Q6H PRN (Reason: Pain) Hold Instructions: Resume on 02/07/23. acetaminophen [Tylenol] 325 mg Tablet 325 mg PO QID PRN (Reason: pain) Discharge Orders: Discharge ED (Routine); Ordered 07/19/24 Ordered By: Constance Rose Referrals: Kentrell Ann [Primary Care Provider] - Discharge Diet: Usual diet Discharge Activity: Increase activity as tolerated Patient Instructions: Acute Nausea and Vomiting (ED) Activity Restrictions/Additional Instructions: Please have repeat testing with your primary provider in the next 2 to 3 days. Thank you for choosing [facility] for your healthcare needs today. Please realize this is an emergency room and that we are providing you with a medical screening exam and this may not be complete and all inclusive of all the testing and or work up that you may need to determine your ailment or severity of your illness. You have been screened and evaluated and felt safe for discharge. Health conditions do change or evolve sometimes and as such it is important that you follow up with your Primary Doctor to be re checked, 3-5 days is a general good time frame for follow up. You are always welcome to return to the ED for re assessment if your symptoms are worsening or you have new concerns Coding Level of Care Code ED [employer] for Jess Gamboa
[2024-07-19 04:04] VITALS: BP 143/79; PULSE 67; O2SAT 100
== END 2024-07-19 04:05 | disposition home or self-care (01) ==
PROVIDERS: Emergency Provider Emergency Medicine; PCP Family Medicine
DX: R11.10 Vomiting, unspecified (principal)
CPT/HCPCS: 80053; 81001; 83690; 84702; 85025; 99283

== ENCOUNTER 2024-09-24 20:52 | Emergency (ER) | payer MEDICAID, SELFPAY ==
[2023-11-02 10:24] VITALS: BP 133/79; BMI 42.8
[2024-09-24 20:54] VITALS: BP 105/74; PULSE 81; RESP 18; TEMP 36.5; BMI 28.1
[2024-09-24 22:07] LABS: Basophils # 0.1 10^3/uL (0.0-0.1); Basophils % 0.6 %; Eosinophils # 0.1 10^3/uL (0.0-0.8); Eosinophils % 1.7 %; Hematocrit 41.4 % (36-47); Lymphocytes # 1.8 10^3/uL (0.8-4.8); Lymphocytes % 21.5 %; Mean Corpuscular HGB Conc 31.9 g/dL (30-55); Mean Corpuscular Volume 87.9 fl (85-98); Mean Platelet Volume 12.4 fL (7.4-10.4); Monocytes # 0.4 10^3/uL (0.2-0.9); Monocytes % 4.9 %; Neutrophils # 5.92 10^3/uL (1.8-7.7); Neutrophils % 71.2 %; Nucleated Red Blood Cells % 0 %; Platelet Count 193 10^3/cmm (157-399); Red Blood Count 4.71 10^6/uL (3.85-5.65); Red Cell Distribution Width 14.7 % (12.1-15.1); White Blood Count 8.32 10^3/uL (3.29-11.43)
[2024-09-24 22:27] LABS: Alanine Aminotransferase 13 U/L (0-33); Albumin Level 4.1 g/dL (3.5-5.2); Alkaline Phosphatase 105 U/L (35-105); Anion Gap 24.2 (5-19); Aspartate Amino Transferase 15 U/L (0-32); Blood Urea Nitrogen 22 mg/dL (6-20); Carbon Dioxide 23 mmol/L (22-29); Chloride 100 mmol/L (98-107); Creatinine Clr Calc Pharmacy 92.3425; Glomerular Filtration Rate 79.4 mL/min (90-130); Glucose 96 mg/dL (65-115); Lipase 22 U/L (13-60); Osmolality Calculated 299 mOsm/kg (285-295); Potassium 4.2 mmol/L (3.5-5.1); Sodium 143 mmol/L (136-145); Total Bilirubin 0.7 mg/dL (0.15-1.2); Total Protein 7.1 g/dL (6.6-8.7)
[2024-09-24 23:26] LABS: Bilirubin Urine Negative (Negative); Blood Urine Negative (Negative); Glucose Urine UA Negative (Normal); Ketones Urine Trace (Negative); Leukocyte Esterase Urine Negative (Negative); Nitrate Urine Negative (Negative); Protein Urine Negative (Negative); Urine Appearance Clear (CLEAR); Urine Color Yellow (Yellow)
[2024-09-24 23:31] LABS: Add Urine Microscopic? YES; Bacteria Urine None Seen /hpf; Hyaline Casts Urine 0-4 /lpf; RBC Urine 0-2 /hpf (0-2); Squamous Epithelial Cell Urine 0-5 /hpf (0-5); WBC Urine 0-5 /hpf (0-5)
[2024-09-24 23:35] LABS: Specific Gravity, Urine 1.035 (1.005-1.030)
--- NOTE | 2024-09-25 00:16 | ED_ITS ---
HPI - Abdominal Pain 2 General: Chief Complaint: Abdominal Pain Stated Complaint: ABD PAIN Time Seen by Provider: 09/24/24 21:17 History of Present Illness: Patient is a 38-year-old female who presents to the emergency department with complaints of abdominal muscle contraction. She denies abdominal pain. Denies vaginal bleeding or discharge. She denies any other complaints Patient reports that she is approximately 15 weeks . Patient has not had any care thus far. 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 Related Data Home Medications Medication Instructions Recorded Confirmed albuterol sulfate 90 mcg/actuation 2 puff inhalation Q6H PRN 09/20/19 08/09/24 aerosol inhaler (ProAir HFA) Shortness Of Breath Or Wheezing fluticasone propionate 50 2 spray intranasal BID 09/20/19 08/09/24 mcg/actuation nasal spray,suspension (Allergy Relief (fluticasone)) montelukast 10 mg tablet 10 mg PO BEDTIME 06/05/22 08/09/24 tramadol 50 mg tablet 50 mg PO Q6H PRN Pain 06/05/22 08/09/24 acetaminophen 325 mg tablet 325 mg PO QID PRN pain 01/26/23 08/09/24 (Tylenol) ultra solo multivitamin 1 cap PO DAILY 12/01/23 08/09/24 calcium 250 mg-D3 500 unit-vit K tab PO 04/04/24 08/09/24 25 uep-hlwotrdtl-ficwzn-borate tablet Previous Rx's Medication Instructions Recorded cetirizine 10 mg tablet (Zyrtec) 10 mg PO DAILY #30 tabs 11/30/19 fluticasone propionate 220 2 puff inhalation BID #12 grams 12/26/19 mcg/actuation HFA aerosol inhaler (Flovent HFA) clobetasol 0.05 % scalp solution 1 applic topical DAILY #50 mL 11/25/22 ketoconazole 2 % shampoo 1 applic topical Q14D #120 mL 11/25/22 triamcinolone acetonide 0.1 % 1 applic topical BID #80 grams 11/25/22 topical ointment sertraline 50 mg tablet 50 mg PO .q am #30 tabs 04/04/24 ndxpcjlp-nnlyfy-BR-thonzonm 3.3 4 drp otic (ear) TID #10 mL 07/19/24 mg-3 mg-10 mg-0.5 mg/mL ear drops,susp (Cortisporin-TC) ondansetron 8 mg disintegrating 8 mg PO Q6H #14 tabs 07/19/24 tablet Allergies Allergy/AdvReac Type Severity Reaction Status Date / Time aspartame Allergy Severe Headache Verified 09/24/24 21:04 egg Allergy Mild Unknown Verified 09/24/24 21:04 aspirin Allergy ADR/ALGY-Hy Verified 09/24/24 21:04 potension [place]edar[place] Allergy runny nose Verified 09/24/24 21:04 imipramine Allergy Rash Verified 09/24/24 21:04 milk Allergy bloating Verified 09/24/24 21:04 Sunblock Allergy Unknown Uncoded 09/24/24 21:04 Review of Systems 2 General: Reports: 10 or more systems reviewed and unremarkable except in HPI and below PFSH ED 2 PFSH: Medical History FH: thyroid disease FH: colon cancer in relative <50 years old Grandfather at age 40 colon cancer , 01/2023 EGD small Hiatal hernia and polyp's removed, no colonoscopy yet Weight loss, intentional 11/21/2022 274 lbs, 10/07/2023 251 lbs History of prediabetes last A1c 5.4 in 2022 BMI 40.0-44.9, adult Major depressive disorder, recurrent, moderate Psychiatric care Ventral hernia Blood type O- Obesity Generalized anxiety disorder Post-traumatic stress disorder, chronic Migraine without aura Asthma Fibromyalgia Surgical History History of hernia repair (~08/2020) History of cholecystectomy 2016 History of bilateral breast reduction surgery (2007) 2008 breast reduction History of abdominoplasty (2012) 2013 Pannus removal, karen peña @ [facility] Family History Mother Hypertension Diabetes Graves disease Grandmother Stroke Maternal Diabetes Paternal Father Hypercholesterolemia Grandfather Cancer Maternal Grandfather: Mesothelioma Grandfather Colon cancer Paternal---dx age unknown Denies family history of Ovarian cancer Heart disease Breast cancer Uterine cancer Social History (Reviewed 07/05/24 @ 09:19 by Elsie Vital Smoking and tobacco/nicotine status: never used tobacco/nicotine Substance/Drug Use: never Additional social history: Well-balanced diet No substance abuse. Do you think of yourself as: Straight/Heterosexual Physical Exam 2 Const: COMMON NORMALS: no acute distress, patient oriented x3 and alert G ENERAL APPEARANCE: cooperative ORIENTATION/CONSCIOUSNESS: Yes awake, Yes oriented to person, Yes oriented to place and Yes oriented to time HENMT: COMMON NORMALS: normocephalic and atraumatic HEAD & SCALP: n ormocephalic and atraumatic FACE & SINUS: normal facial exam MOUTH: Normal oral and palatal mucosa present THROAT: posterior oropharynx normal Eye: COMMON NORMALS: Equal, round and reactive pupils present, EOMs intact bilaterally, conjunctivae normal and no scleral icterus GENERAL EYE: a ppearance normal, both eyes and all related structures ALIGNMENT: Yes alignment normal PERIORBITAL: periorbital findings normal CONJUNCTIVA: Yes conjunctivae normal PUPIL: Yes Equal, round and reactive pupils present Neck/C-Spine: COMMON NORMALS: full ROM GENERAL: Yes normal visual inspection Lymph: LYMPHATIC: no lymphadenopathy noted Chest: COMMONS NORMALS: normal inspection of the chest Breast/axilla inspection: Yes no chest deformity, asymmetry, normal contours, no nodules, masses, tenderness Resp: COMMON NORMALS: normal respiratory effort, No retractions, No use of accessory muscles and clear to auscultation bilaterally EFFORT & INSPECTION: Yes able to speak in complete sentences and Yes symmetric chest movement A USCULTATION: clear to auscultation bilaterally Cardio: COMMON NORMALS: regular rate, regular rhythm and Peripheral pulses 2+ throughout RATE: regular rate RHYTHM: regular rhythm PERIPHERAL PULSES: Peripheral pulses 2+ throughout GI: COMMON NORMALS: Normal to inspection, nondistended, normoactive bowel sounds present, Soft to palpation, non-tender and No hepatosplenomegaly present INSPECTION: Yes normal to inspection AUSCULTATION: Yes normoactive bowel sounds PALPATION: Yes Soft to palpation and Yes No hepatosplenomegaly present RECTAL EXAM: deferred Extremity: COMMON NORMALS: normal to inspection GENERAL: Yes normal exam except as noted Neuro: COMMON NORMALS: patient oriented x3 SENSORIUM/ORIENTATION: Yes alert, Yes oriented to person, Yes oriented to place and Yes oriented to time CRANIAL NERVES: Yes CN normal except as noted Psych: COMMON NORMALS: mental status grossly normal, Normal thought process present, cooperative, activity/motor behavior normal, denies homicidal ideation and denies suicidal ideation THOUGHT PROCESS: Normal thought process present Skin: COMMON NORMALS: no rashes or lesions noted, no wounds and turgor normal GENERAL SKIN EXAM: no rashes or lesions noted and turgor normal Course 2 Vital Signs: Vital signs: Vital Signs Temperature 97.7 F 09/24/24 20:54 Pulse Rate 81 09/24/24 20:54 Respiratory Rate 18 09/24/24 20:54 Blood Pressure 105/74 09/24/24 20:54 MDM - Abdominal Pain Medical Decision Making Patient was evaluated in the emergency department today for complaints of and feeling like she is having [place] Friend. She denies pain, nausea vomiting, vaginal discharge or bleeding, denies diarrhea or constipation. Patient underwent diagnostic evaluation that included CBC, CMP, urinalysis, lipase. She has no leukocytosis, anemia, thrombocytopenia, electrolyte abnormality, elevated lipase, abnormal renal liver function. Patient underwent a urinalysis which reveals no signs of infection. Informal ultrasound performed by Dr. Keane. No visible or fetus identified. I changed the qualitative hCG to a quant. Result was 1.0. Formal ultrasound has not been ordered. I talked with patient about her lab results and she became very defensive, demanding that I figure out why she keeps thinking she is . I have advised her that she needs to follow-up with primary care or gynecology. At this time since she is not complaining of abdominal pain and her laboratory evaluation is unremarkable, I am foregoing any further diagnostics. Case was reviewed with Dr. Keane. Patient is discharged Lab Data 09/24/24 21:56 09/24/24 21:56 Labs/Radiology: Laboratory Results WBC 8.32 10^3/uL (3.29-11.43) 09/24/24 21:56 RBC 4.71 10^6/uL (3.85-5.65) 09/24/24 21:56 Hgb 13.20 g/dL (11.27-16.99) 09/24/24 21:56 Hct 41.4 % (36-47) 09/24/24 21:56 MCV 87.9 fl (85-98) 09/24/24 21:56 MCH 28.0 pg (27-33) 09/24/24 21:56 MCHC 31.9 g/dL (30-55) 09/24/24 21:56 RDW 14.7 % (12.1-15.1) 09/24/24 21:56 Plt Count 193 10^3/cmm (157-399) 09/24/24 21:56 MPV 12.4 fL (7.4-10.4) H 09/24/24 21:56 Neut % (Auto) 71.2 % 09/24/24 21:56 Lymph % (Auto) 21.5 % 09/24/24 21:56 Curry % (Auto) 4.9 % 09/24/24 21:56 Eos % (Auto) 1.7 % 09/24/24 21:56 Baso % (Auto) 0.6 % 09/24/24 21:56 Neut # (Auto) 5.92 10^3/uL (1.8-7.7) 09/24/24 21:56 Lymph # (Auto) 1.8 10^3/uL (0.8-4.8) 09/24/24 21:56 Curry # (Auto) 0.4 10^3/uL (0.2-0.9) 09/24/24 21:56 Eos # (Auto) 0.1 10^3/uL (0.0-0.8) 09/24/24 21:56 Baso # (Auto) 0.1 10^3/uL (0.0-0.1) 09/24/24 21:56 Nucleated RBC % (auto) 0 % 09/24/24 21:56 Nucleated RBCs # 0.0 /100WBC 09/24/24 21:56 Sodium 143 mmol/L (136-145) 09/24/24 21:56 Potassium 4.2 mmol/L (3.5-5.1) 09/24/24 21:56 Chloride 100 mmol/L (98-107) 09/24/24 21:56 Carbon Dioxide 23 mmol/L (22-29) 09/24/24 21:56 Anion Gap 24.2 (5-19) H 09/24/24 21:56 BUN 22 mg/dL (6-20) H 09/24/24 21:56 Creatinine 0.8 mg/dL (0.5-0.9) 09/24/24 21:56 GFR Calculation 79.4 mL/min (90-130) L 09/24/24 21:56 Glucose 96 mg/dL (65-115) 09/24/24 21:56 Calculated Osmolality 299 mOsm/kg (285-295) H 09/24/24 21:56 Calcium 9.0 mg/dL (8.5-10.5) 09/24/24 21:56 Total Bilirubin 0.7 mg/dL (0.15-1.2) 09/24/24 21:56 AST 15 U/L (0-32) 09/24/24 21:56 ALT 13 U/L (0-33) 09/24/24 21:56 Alkaline Phosphatase 105 U/L (35-105) 09/24/24 21:56 Total Protein 7.1 g/dL (6.6-8.7) 09/24/24 21:56 Albumin 4.1 g/dL (3.5-5.2) 09/24/24 21:56 Globulin 3.0 g/dL (1.3-4.6) 09/24/24 21:56 Lipase 22 U/L (13-60) 09/24/24 21:56 HCG, Qual Cancelled 09/24/24 23:06 Ser , Semi-Qnt 1.00 mIU/mL 09/24/24 21:56 Urine Color Yellow (Yellow) 09/24/24 23:06 Urine Appearance Clear (CLEAR) 09/24/24 23:06 Urine pH 6.0 (5-7) 09/24/24 23:06 Ur Specific [place] 1.035 (1.005-1.030) H 09/24/24 23:06 Urine Protein Negative (Negative) 09/24/24 23:06 Urine Glucose (UA) Negative (Normal) 09/24/24 23:06 Urine Ketones Trace (Negative) 09/24/24 23:06 Urine Blood Negative (Negative) 09/24/24 23:06 Urine Nitrate Negative (Negative) 09/24/24 23:06 Urine Bilirubin Negative (Negative) 09/24/24 23:06 Urine Urobilinogen 1.0 mg/dL (Negative) 09/24/24 23:06 Ur Leukocyte Esterase Negative (Negative) 09/24/24 23:06 Urine RBC 0-2 /hpf (0-2) 09/24/24 23:06 Urine WBC 0-5 /hpf (0-5) 09/24/24 23:06 Ur Squamous Epith Cells 0-5 /hpf (0-5) 09/24/24 23:06 Amorphous Sediment Not Reportable 09/24/24 23:06 Urine Bacteria None seen /hpf (NONE) 09/24/24 23:06 Hyaline Casts 0-4 /lpf H 09/24/24 23:06 No radiology studies performed this visit Discharge Plan Discharge Patient Disposition: Home Clinical Impression: Not currently Condition: Stable Prescriptions: No Action cetirizine [Zyrtec] 10 mg tablet 10 mg PO DAILY Qty: 30 2RF albuterol sulfate [ProAir HFA] 90 mcg/actuation HFA aerosol inhaler 2 puff INHALATION Q6H PRN (Reason: Shortness Of Breath Or Wheezing) fluticasone propionate [Allergy Relief (fluticasone)] 50 mcg/actuation spray,suspension 2 spray INTRANASAL BID ultra solo multivitamin capsule 1 cap PO DAILY Ca Fan-[id number]-Frzl-hyxek-kfx bor 250 mg calcium -500 unit tablet PO sertraline 50 mg tablet 50 mg PO .q am Qty: 30 2RF Rx Instructions: Take 1 tablet by mouth every morning ketoconazole 2 % shampoo 1 applic topical Q14D Qty: 120 6RF Rx Instructions: Lather into scalp 2-3 times weekly. Allowed to sit on scalp for 5 minutes before rinsing. triamcinolone acetonide 0.1 % ointment 1 applic topical BID Qty: 80 0RF Rx Instructions: Apply to affected area no more than 2 weeks/month. Not for use on face. clobetasol 0.05 % solution 1 applic topical DAILY Qty: 50 3RF Rx Instructions: Apply few drops to itchy areas of scalp as needed. Flovent HFA 220 mcg/actuation HFA aerosol inhaler 2 puff INHALATION BID Qty: 12 1RF Rx Instructions: In [place] Friend absence's montelukast 10 mg tablet 10 mg PO BEDTIME Rx Instructions: needs a new provider for refills tramadol 50 mg Tablet 50 mg PO Q6H PRN (Reason: Pain) Hold Instructions: Resume on 02/07/23. Cortisporin-TC 3.3-3-10-0.5 mg/mL drops,suspension 4 drp otic (ear) TID Qty: 10 0RF ondansetron 8 mg tablet,disintegrating 8 mg PO Q6H Qty: 14 0RF Rx Instructions: Take 1/2-1 tab every 6 hours as needed for nausea and vomiting acetaminophen [Tylenol] 325 mg Tablet 325 mg PO QID PRN (Reason: pain) Discharge Orders: Discharge ED (Routine); Ordered 09/25/24 Ordered By: Anitra Mane Referrals: Kentrell Ann [Primary Care Provider] - Patient Instructions: Pain Management Activity Restrictions/Additional Instructions: Please follow-up with your primary care doctor. 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 Please return to the emergency department as needed for new, concerning, worsening symptoms Coding Level of Care Code ED Mix Mill Tender for Jess Gamboa
[2024-09-25 00:29] VITALS: BP 125/86; PULSE 67; O2SAT 94
== END 2024-09-25 00:30 | disposition home or self-care (01) ==
PROVIDERS: Emergency Provider Nurse Practitioner; PCP Family Medicine
DX: R10.9 Unspecified abdominal pain (principal)
CPT/HCPCS: 36415; 80053; 81001; 83690; 84702; 85025; 99283

== ENCOUNTER → 2025-01-17 08:28 | Outpatient (BNVA) | payer MEDICAID, SELFPAY ==
[2023-11-02 10:24] VITALS: BP 133/79; BMI 42.8
== END ==
PROVIDERS: PCP Family Medicine; Referring Provider Family Medicine; Visit Provider Student in an Organized Health Care Education/Training Program
DX: M25.561 Pain in right knee (principal); M25.562 Pain in left knee
CPT/HCPCS: 73560; 73565; 80061; 83036; 99203

== ENCOUNTER 2025-01-18 07:41 | Outpatient (CLI) | payer MEDICAID, SELFPAY ==
[2023-11-02 10:24] VITALS: BP 133/79; BMI 42.8
--- NOTE | 2025-01-18 08:00 | MR_ITS ---
WS: [id number] MRI LEFT KNEE NONCONTRAST TECHNIQUE: Axial PD, coronal PD fat sat, coronal PD, sagittal PD, and sagittal PD fat-sat images obtained. CLINICAL INFORMATION: left knee pain COMPARISON: None. FINDINGS: Distal quadriceps and patella tendons are intact. Hypertrophic patella. Normal ACL and PCL. Chronic intrasubstance signal abnormality in the posterior horn medial meniscus. No acute appearing meniscal tears. Normal bone marrow signal in the femoral condyles and tibial plateau. Mild chondromalacia patella. Normal medial and lateral patellar retinaculum. Medial and lateral collateral ligaments appear intact. Normal biceps femoris. Normal popliteus. Normal popliteal fossa. No other acute findings. MR/MR knee LT wo con* [id number] IMPRESSION: 1. Normal ACL and PCL. 2. Mild chondromalacia patella with slightly hypertrophic patella. 3. Chronic intrasubstance signal abnormality posterior horn medial meniscus. N o acute appearing meniscal tears. 4. No other acute findings. Outbridge grading: grade II: blister-like swelling/fraying of articular cartila ge extending to surface
--- NOTE | 2025-01-18 08:45 | MR_ITS ---
WS: [id number] MRI RIGHT KNEE NONCONTRAST TECHNIQUE: Axial PD, coronal PD fat sat, coronal PD, sagittal PD, and sagittal PD fat-sat images obtained. CLINICAL INFORMATION: right knee pain COMPARISON: None. FINDINGS: Distal quadriceps and patella tendons are intact. Hypertrophic patella. Normal ACL and PCL. Normal bone marrow signal in the femoral condyles and tibial plateau. Grade II chondromalacia patella. Small amount of chondral fissuring. Medial and lateral patellar retinacula appear intact. Somewhat shallow trochlear groove. Recommend correlation for patellar instability. No evidence of dislocation or subluxation. Normal lateral collateral ligament. Normal popliteus. Normal medial collateral ligament. Normal biceps femoris. Tiny horizontal tear involving the posterior horn medial meniscus. Chronic intrasubstance signal abnormality involving the posterior horn medial meniscus. Mild chronic thinning of the lateral meniscus. MR/MR knee RT wo con* [id number] IMPRESSION: 1. Normal ACL and PCL. 2. Tiny horizontal tear involving the posterior horn medial meniscus at the pe ripheral articular surface. 3. Grade II chondromalacia patella with chondral fissuring. 4. Somewhat shallow trochlear groove. Recommend correlation for patellar insta bility. 5. No other acute findings. Outbridge grading: grade II: blister-like swelling/fraying of articular cartila ge extending to surface
== END 2025-01-18 07:42 | disposition home or self-care (01) ==
LOC: RAD 07:42
PROVIDERS: PCP Family Medicine; Visit Provider Student in an Organized Health Care Education/Training Program
DX: M25.561 Pain in right knee (principal); M25.562 Pain in left knee; S83.207A Unspecified tear of unspecified meniscus, current injury, left knee, initial encounter; S83.206A Unspecified tear of unspecified meniscus, current injury, right knee, initial encounter; M22.41 Chondromalacia patellae, right knee; M22.42 Chondromalacia patellae, left knee; R93.6 Abnormal findings on diagnostic imaging of limbs; M89.38 Hypertrophy of bone, other site
CPT/HCPCS: 73721

== ENCOUNTER 2025-01-20 17:38 | Emergency (ER) | payer MEDICAID, SELFPAY ==
[2023-11-02 10:24] VITALS: BP 133/79; BMI 42.8
[2025-01-20 17:39] VITALS: BP 137/95; PULSE 76; RESP 14; TEMP 36.7; O2SAT 100
[2025-01-20 18:31] VITALS: BP 137/86; PULSE 67; RESP 16; O2SAT 100
--- NOTE | 2025-01-20 18:33 | ED_ITS ---
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 Stress seems to contribute to these and she has been under the care of local neurologist who more recently referred her for a 72-hour sleep deprived EEG but she has yet to confirm this appointment. The patient reports that she had 2 seizures today that she was unresponsive but aware of her surroundings. 1 of which was witnessed and there was no reported myoclonus. No loss of bowel or bladder. The patient is currently unemployed and seeking disability. She denies any alcohol or drug use. Patient reports that she is slowly getting back to normal here. She denies that she is on any antiepileptic or seizure medications. Related Data Home Medications ?Medication ?Instructions ?Recorded ?Confirmed albuterol sulfate 90 mcg/actuation 2 puff inhalation Q 6H PRN 09/20/19 01/17/25 aerosol inhaler (ProAir HFA) Shortness Of Breath Or Wh eezing fluticasone propionate 50 2 spray intranasal BID 09/2001/17/25 mcg/actuation nasal spray,suspension (Allergy Relief (fluticasone)) acetaminophen 325 mg tablet 325 mg PO QID PRN pain 05/1301/17/25 (Tylenol) ultra solo multivitamin 1 cap PO DAILY 12/01/2312/21 calcium 250 mg-D3 500 unit-vit K tab PO 04/04/2401/17 25 gig-tpgukjcbe-uyetzp-borate tablet acetaminophen 300 mg-codeine 60 mg 1 tab PO DAILY PRN 12/06/24 01/17/25 tablet cyclobenzaprine 5 mg tablet 5 mg PO DAILY PRN 12/06/24 01/17/25 Previous Rx's ?Medication ?Instructions ?Recorded cetirizine 10 mg tablet (Zyrtec) 10 mg PO DAILY #30 ta bs 11/30/19 fluticasone propionate 220 2 puff inhalation BID #12 g eileen 12/26/19 mcg/actuation HFA aerosol inhaler (Flovent HFA) clobetasol 0.05 % scalp solution 1 applic topical LARISSA Y #50 mL 11/25/22 ketoconazole 2 % shampoo 1 applic topical Q14D #120 m L 11/25/22 triamcinolone acetonide 0.1 % 1 applic topical BID #80 grams 11/25/22 topical ointment hydroxyzine HCl 50 mg tablet 50 mg PO BID PRN anxiety #60 tabs 12/06/24 Allergies Allergy/AdvReac Type Severity Reaction Status Date / Time aspartame Allergy Severe Headache Verified 01/20/25 17:43 egg Allergy Mild Unknown Verified 01/20/25 17:43 aspirin Allergy ADR/ALGY-Hy Verified 01/20/25 17:43 potension cedarwood Allergy runny nose Verified 01/20/25 17:43 imipramine Allergy Rash Verified 01/20/25 17:43 milk Allergy bloating Verified 01/20/25 17:43 Sunblock Allergy Unknown Uncoded 01/20/25 17:43 Review of Systems 2 General: Reports: 10 or more systems reviewed and unremarkable except in HPI and below PFSH ED 2 PFSH: Medical History (Updated 01/20/25 @ 19:35 by Raymond Silverman DO) MDD (major depressive disorder), recurrent, in partial remission FH: thyroid disease FH: colon cancer in relative <50 years old Grandfather at age 40 colon cancer , 01/2023 EGD small Hiatal hernia and polyp's removed, no colonoscopy yet Weight loss, intentional 11/21/2022 274 lbs, 10/07/2023 251 lbs History of prediabetes last A1c 5.4 in 2022 BMI 40.0-44.9, adult Major depressive disorder, recurrent, moderate Psychiatric care Ventral hernia Blood type O- Obesity Generalized anxiety disorder Post-traumatic stress disorder, chronic Migraine without aura Asthma Fibromyalgia Surgical History History of hernia repair (~08/2020) History of cholecystectomy 2016 History of bilateral breast reduction surgery (2007) 2007 breast reduction History of abdominoplasty (2012) 2013 Pannus removal, karen peña @ [facility] Family History Mother Hypertension Diabetes Graves disease Grandmother Stroke Maternal Diabetes Paternal Father Hypercholesterolemia Grandfather Cancer Maternal Grandfather: Mesothelioma Grandfather Colon cancer Paternal---dx age unknown Denies family history of Ovarian cancer Heart disease Breast cancer Uterine cancer Social History (Updated 01/17/25 @ 15:11 by Crystal Florez LPN) Smoking and tobacco/nicotine status: never used tobacco/nicotine Alcohol intake: former Year of sobriety/quit date alcohol: 2010 Substance/Drug Use: never Additional social history: Well-balanced diet No substance abuse. 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 Sexually active: Yes Do you think of yourself as: Straight/Heterosexual Current gender identity: Female Susan/Mandaeism: Shinto Special susan needs: No Agree to transfusion: Yes Female Reproductive History: Para: 5 Physical Exam 2 Const: COMMON NORMALS: no acute distress, patient oriented x3, alert and well nourished HENMT: COMMON NORMALS: normocephalic HEAD & SCALP: normocephalic Eye: COMMON NORMALS: Equal, round and reactive pupils present, EOMs intact bilaterally and conjunctivae normal CONJUNCTIVA: Yes conjunctivae normal P UPIL: Yes Equal, round and reactive pupils present Chest: COMMONS NORMALS: normal inspection of the chest and normal palpation of entire chest wall Resp: COMMON NORMALS: normal respiratory effort, No retractions, No use of accessory muscles, clear to auscultation bilaterally and percussion normal A USCULTATION: clear to auscultation bilaterally PERCUSSION: percussion normal GI: COMMON NORMALS: Normal to inspection, nondistended, normoactive bowel sounds present, Soft to palpation, non-tender, No hepatosplenomegaly present, no masses and no bruits PALPATION: Yes Soft to palpation and Yes No hepatosplenomegaly present Extremity: COMMON NORMALS: normal to inspection, full ROM, capillary refill normal, no joint enlargement, no clubbing, cyanosis or edema, no calf tenderness and no pedal edema Neuro: COMMON NORMALS: patient oriented x3 SENSORIUM/ORIENTATION: Yes alert Skin: COMMON NORMALS: no rashes or lesions noted, turgor normal and no jaundice GENERAL SKIN EXAM: no rashes or lesions noted and turgor normal Course 2 Vital Signs: Vital signs: Vital Signs Temperature 98.1 F 01/20/25 17:39 Pulse Rate 59 L 01/20/25 19:17 Respiratory Rate 16 01/20/25 18:31 Blood Pressure 133/95 01/20/25 19:17 Pulse Oximetry 99 01/20/25 19:17 Oxygen Delivery Me thod Room Air 01/20/25 18:31 MDM - Seizure MDM Narrative Medical decision making narrative: 39-year-old female with reported self history of drop seizures . The patient has normal vital signs examinations normal she does not appear to be postictal. These sound like nonepileptic seizures will check routine labs and she has not started on any new or different medication denies any drugs that would lower the seizure threshold. I do not think any neuro-imaging is indicated at this point. Serial neurologic examinations to be performed. The patient will be observed over several hours in the emergency department. Patient feels better after a stay in the emergency department no significant findings we talked about seizure precautions and the importance of following up. Differential Diagnosis Seizure Differential Diagnosis: Likely intractable seizure disorder, focal seizure, generalized seizure and status epilepticus Lab Data 01/20/25 18:40 01/20/25 18:40 Labs: Laboratory Results WBC 7.64 10^3/uL (3.29-11.43) 01/20/25 18:40 RBC 4.36 10^6/uL (3.85-5.65) 01/20/25 18:40 Hgb 12.20 g/dL (11.27-16.99) 01/20/25 18:40 Hct 38.0 % (36-47) 01/20/25 18:40 MCV 87.2 fl (85-98) 01/20/25 18:40 MCH 28.0 pg (27-33) 01/20/25 18:40 MCHC 32.1 g/dL (30-55) 01/20/25 18:40 RDW 13.9 % (12.1-15.1) 01/20/25 18:40 Plt Count 209 10^3/cmm (157-399) 01/20/25 18:40 MPV 11.6 fL (7.4-10.4) H 01/20/25 18:40 Neut % (Auto) 65.2 % 01/20/25 18:40 Lymph % (Auto) 25.0 % 01/20/25 18:40 [place] % (Auto) 6.7 % 01/20/25 18:40 Eos % (Auto) 2.1 % 01/20/25 18:40 Baso % (Auto) 0.7 % 01/20/25 18:40 Neut # (Auto) 4.99 10^3/uL (1.8-7.7) 01/20/25 18:40 Lymph # (Auto) 1.9 10^3/uL (0.8-4.8) 01/20/25 18:40 [place] # (Auto) 0.5 10^3/uL (0.2-0.9) 01/20/25 18:40 Eos # (Auto) 0.2 10^3/uL (0.0-0.8) 01/20/25 18:40 Baso # (Auto) 0.1 10^3/uL (0.0-0.1) 01/20/25 18:40 Nucleated RBC % (auto) 0 % 01/20/25 18:40 Nucleated RBCs # 0.0 /100WBC 01/20/25 18:40 Sodium 140 mmol/L (136-145) 01/20/25 18:40 Potassium 3.9 mmol/L (3.5-5.1) 01/20/25 18:40 Chloride 107 mmol/L (98-107) 01/20/25 18:40 Carbon Dioxide 22 mmol/L (22-29) 01/20/25 18:40 Anion Gap 14.9 (5-19) 01/20/25 18:40 BUN 12 mg/dL (6-20) 01/20/25 18:40 Creatinine 0.6 mg/dL (0.5-0.9) 01/20/25 18:40 GFR Calculation 110.2 mL/min (90-130) 01/20/25 18:40 Glucose 81 mg/dL (65-115) 01/20/25 18:40 Calculated Osmolality 289 mOsm/kg (285-295) 01/20/25 18:40 Calcium 8.5 mg/dL (8.5-10.5) 01/20/25 18:40 Total Bilirubin 0.6 mg/dL (0.15-1.2) 01/20/25 18:40 AST 31 U/L (0-32) 01/20/25 18:40 ALT 23 U/L (0-33) 01/20/25 18:40 Alkaline Phosphatase 117 U/L (35-105) H 01/20/25 18:40 Total Protein 6.5 g/dL (6.6-8.7) L 01/20/25 18:40 Albumin 3.9 g/dL (3.5-5.2) 01/20/25 18:40 Globulin 2.6 g/dL (1.3-4.6) 01/20/25 18:40 HCG, Qual Negative (Negative) 01/20/25 18:40 Urine Opiates Screen Negative ng/mL (Negative) 01/20/25 18:02 Ur Barbiturates Screen Negative ng/mL (Negative) 01/20/25 18:02 Ur Phencyclidine Scrn Negative ng/mL (Negative) 01/20/25 18:02 Ur Amphetamines Screen Negative ng/mL (Negative) 01/20/25 18:02 U Benzodiazepines Scrn Negative ng/mL (Negative) 01/20/25 18:02 Urine Cocaine Screen Negative ng/mL (Negative) 01/20/25 18:02 U Marijuana (THC) Screen Negative ng/mL (Negative) 01/20/25 18:02 No radiology studies performed this visit ED provider radiology interpretation(s): None Discharge Plan Discharge Patient Disposition: Home Clinical Impression: Seizure Condition: Stable Prescriptions: No Action cetirizine [Zyrtec] 10 mg tablet 10 mg PO DAILY Qty: 30 2RF albuterol sulfate [ProAir HFA] 90 mcg/actuation HFA aerosol inhaler 2 puff INHALATION Q6H PRN (Reason: Shortness Of Breath Or Wheezing) fluticasone propionate [Allergy Relief (fluticasone)] 50 mcg/actuation spray,suspension 2 spray INTRANASAL BID ultra solo multivitamin capsule 1 cap PO DAILY Ca Uat-X5-T-Vckk-exwya-sfk bor 250 mg calcium -500 unit tablet PO acetaminophen-codeine 300-60 mg tablet 1 tab PO DAILY PRN cyclobenzaprine 5 mg tablet 5 mg PO DAILY PRN hydroxyzine HCl 50 mg tablet 50 mg PO BID PRN (Reason: anxiety) Qty: 60 2RF Rx Instructions: Take one tablet twice daily, if needed, for anxiety ketoconazole 2 % shampoo 1 applic topical Q14D Qty: 120 6RF Rx Instructions: Lather into scalp 2-3 times weekly. Allowed to sit on scalp for 5 minutes before rinsing. triamcinolone acetonide 0.1 % ointment 1 applic topical BID Qty: 80 0RF Rx Instructions: Apply to affected area no more than 2 weeks/month. Not for use on face. clobetasol 0.05 % solution 1 applic topical DAILY Qty: 50 3RF Rx Instructions: Apply few drops to itchy areas of scalp as needed. Flovent HFA 220 mcg/actuation HFA aerosol inhaler 2 puff INHALATION BID Qty: 12 1RF Rx Instructions: In Cailin Friend absence's acetaminophen [Tylenol] 325 mg Tablet 325 mg PO QID PRN (Reason: pain) Discharge Orders: Discharge ED (Routine); Ordered 01/20/25 Ordered By: Raymond Silverman Referrals: Kentrell Ann [Primary Care Provider, Family Practice] Discharge Diet: Usual diet Discharge Activity: Resume usual activity Patient Instructions: Opioid Safety, Pain Management Activity Restrictions/Additional Instructions: Seizure precautions. Print Language: Occitan Coding Level of Care Code ED Dictaphone Transcriber for Jess Gamboa
[2025-01-20 18:49] LABS: Basophils # 0.1 10^3/uL (0.0-0.1); Basophils % 0.7 %; Eosinophils # 0.2 10^3/uL (0.0-0.8); Eosinophils % 2.1 %; Lymphocytes # 1.9 10^3/uL (0.8-4.8); Mean Corpuscular HGB Conc 32.1 g/dL (30-55); Mean Corpuscular Volume 87.2 fl (85-98); Mean Platelet Volume 11.6 fL (7.4-10.4); Monocytes # 0.5 10^3/uL (0.2-0.9); Monocytes % 6.7 %; Neutrophils # 4.99 10^3/uL (1.8-7.7); Neutrophils % 65.2 %; Nucleated Red Blood Cells % 0 %; Platelet Count 209 10^3/cmm (157-399); Red Blood Count 4.36 10^6/uL (3.85-5.65); Red Cell Distribution Width 13.9 % (12.1-15.1); White Blood Count 7.64 10^3/uL (3.29-11.43)
[2025-01-20 18:52] LABS: Amphetamines Screen Urine Negative (Negative); Barbiturates Screen Urine Negative (Negative); Benzodiazepines Screen Urine Negative (Negative); Cocaine Screen Urine Negative (Negative); Opiate Screen Urine Negative (Negative); PCP Screen Urine Negative (Negative); THC Screen Urine Negative (Negative)
[2025-01-20 19:03] LABS: HCG, Serum Qual Negative (Negative)
[2025-01-20 19:09] LABS: Alanine Aminotransferase 23 U/L (0-33); Albumin Level 3.9 g/dL (3.5-5.2); Alkaline Phosphatase 117 U/L (35-105); Anion Gap 14.9 (5-19); Aspartate Amino Transferase 31 U/L (0-32); Blood Urea Nitrogen 12 mg/dL (6-20); Calcium 8.5 mg/dL (8.5-10.5); Carbon Dioxide 22 mmol/L (22-29); Chloride 107 mmol/L (98-107); Creatinine Clr Calc Pharmacy 124.0129; Globulin 2.6 g/dL (1.3-4.6); Glomerular Filtration Rate 110.2 mL/min (90-130); Glucose 81 mg/dL (65-115); Osmolality Calculated 289 mOsm/kg (285-295); Potassium 3.9 mmol/L (3.5-5.1); Sodium 140 mmol/L (136-145); Total Bilirubin 0.6 mg/dL (0.15-1.2); Total Protein 6.5 g/dL (6.6-8.7)
--- NOTE | 2025-01-20 19:11 | PC.NURSE ---
Assumed care from Ivette ACEVES at this time.
[2025-01-20 19:17] VITALS: BP 133/95; PULSE 59; O2SAT 99
[2025-01-20 19:58] VITALS: BP 142/86; PULSE 67; O2SAT 99
== END 2025-01-20 19:59 | disposition home or self-care (01) ==
PROVIDERS: Emergency Medicine; Emergency Provider Family Medicine; PCP Family Medicine
DX: R56.9 Unspecified convulsions (principal)
CPT/HCPCS: 80053; 80306; 84703; 85025; 99283

== ENCOUNTER 2025-02-08 05:21 | Emergency (ER) | payer MEDICAID, SELFPAY ==
[2025-01-23 15:14] VITALS: BP 131/94; BMI 29.6
[2025-02-08 05:30] VITALS: BP 133/96; PULSE 74; RESP 18; TEMP 36.7; O2SAT 100; BMI 28.8
[2025-02-08 06:05] VITALS: BP 133/96; PULSE 57; RESP 16; O2SAT 98
--- NOTE | 2025-02-08 06:05 | W.ED.DENTAL ---
HPI - Dental/Oral General: Chief complaint: Dental/Oral Stated complaint: R side of face painful tooth pull 6days ago Time Seen by Provider: 02/08/25 05:26 History of Present Illness: 39-year-old female presents emergency room with complaint of right lower jaw pain. Posterior molar on the right side. There is no active drainage. Has not had any fever sweats or chills that she has not seen the dentist who originally did the procedure. Associated symptoms: Denies fever(s) Related Data Home Medications ?Medication ?Instructions ?Recorded ?Confirmed albuterol sulfate 90 mcg/actuation 2 puff inhalation Q6H PRN 09/20/19 01/24/25 aerosol inhaler (ProAir HFA) Shortness Of Breath Or Wheezing fluticasone propionate 50 2 spray intranasal BID 09/20/19 01/24/25 mcg/actuation nasal spray,suspension (Allergy Relief (fluticasone)) acetaminophen 325 mg tablet 325 mg PO QID PRN pain 01/26/23 01/24/25 (Tylenol) ultra solo multivitamin 1 cap PO DAILY 12/01/23 01/24/25 calcium 250 mg-D3 500 unit-vit K tab PO 04/04/24 01/24/25 25 fuk-smwsixlas-augznt-borate tablet acetaminophen 300 mg-codeine 60 mg 1 tab PO DAILY PRN 12/06/24 01/24/25 tablet cyclobenzaprine 5 mg tablet 5 mg PO DAILY PRN 12/06/24 01/24/25 Previous Rx's ?Medication ?Instructions ?Recorded cetirizine 10 mg tablet (Zyrtec) 10 mg PO DAILY #30 tabs 11/30/19 fluticasone propionate 220 2 puff inhalation BID #12 grams 12/26/19 mcg/actuation HFA aerosol inhaler (Flovent HFA) clobetasol 0.05 % scalp solution 1 applic topical DAILY #50 mL 11/25/22 ketoconazole 2 % shampoo 1 applic topical Q14D #120 mL 11/25/22 triamcinolone acetonide 0.1 % 1 applic topical BID #80 grams 11/25/22 topical ointment hydroxyzine HCl 50 mg tablet 50 mg PO BID PRN anxiety #60 tabs 12/06/24 amoxicillin 875 mg-potassium 1 tab PO BID #14 tabs 02/08/25 clavulanate 125 mg tablet Allergies Allergy/AdvReac Type Severity Reaction Status Date / Time aspartame Allergy Severe Headache Verified 02/08/25 05:36 egg Allergy Mild Unknown Verified 02/08/25 05:36 aspirin Allergy ADR/ALGY-Hy Verified 02/08/25 05:36 potension cedarwood Allergy runny nose Verified 02/08/25 05:36 imipramine Allergy Rash Verified 02/08/25 05:36 milk Allergy bloating Verified 02/08/25 05:36 Sunblock Allergy Unknown Uncoded 02/08/25 05:36 Review of Systems Const: Denies: fever(s) or chills Card: Denies: chest pain Resp: Denies: dyspnea GI: Denies: abdominal pain : Denies: dysuria, urinary frequency or urinary urgency Musc: Denies: neck pain or back pain Skin/Breast: Denies: rash PFSH ED PFSH: Medical History MDD (major depressive disorder), recurrent, in partial remission FH: thyroid disease FH: colon cancer in relative <50 years old Grandfather at age 40 colon cancer , 01/2023 EGD small Hiatal hernia and polyp's removed, no colonoscopy yet Weight loss, intentional 11/21/2022 274 lbs, 10/07/2023 251 lbs History of prediabetes last A1c 5.4 in 2022 BMI 40.0-44.9, adult Major depressive disorder, recurrent, moderate Psychiatric care Ventral hernia Blood type O- Obesity Generalized anxiety disorder Post-traumatic stress disorder, chronic Migraine without aura Asthma Fibromyalgia Surgical History History of hernia repair (~08/2020) History of cholecystectomy 2016 History of bilateral breast reduction surgery (2007) 2007 breast reduction History of abdominoplasty (2012) 2013 Pannus removalkaren @ [facility] Family History Mother Hypertension Diabetes Graves disease Grandmother Stroke Maternal Diabetes Paternal Father Hypercholesterolemia Grandfather Cancer Maternal Grandfather: Mesothelioma Grandfather Colon cancer Paternal---dx age unknown Denies family history of Ovarian cancer Heart disease Breast cancer Uterine cancer Social History Smoking and tobacco/nicotine status: never used tobacco/nicotine Alcohol intake: former Year of sobriety/quit date alcohol: 2010 Substance/Drug Use: never Additional social history: Well-balanced diet No substance abuse. 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 Sexually active: Yes Do you think of yourself as: Straight/Heterosexual Current gender identity: Female Susan/Scientologist: Roman Catholic Special susan needs: No Agree to transfusion: Yes Female Reproductive History: Date of last menstrual period: 01/11/25 Para: 5 Physical Exam Const: COMMON NORMALS: no acute distress GENERAL APPEARANCE: cooperative and comfortable ORIENTATION/CONSCIOUSNESS: Yes awake, Yes oriented to person, Yes oriented to place and Yes oriented to time HENMT: COMMON NORMALS: normocephalic, atraumatic and hearing grossly normal bilaterally HEAD & SCALP: normocephalic and atraumatic OTHER: Tooth #32 (most posterior left mandibular tooth) is absent. Can visualize a bit of tissue in the defect in the gum does not appear to be actively draining there is no swelling no erythema no purulence. Palpation of the neck there is no submandibular or cervical lymphadenopathy noted. Resp: COMMON NORMALS: normal respiratory effort, No retractions, No use of accessory muscles and clear to auscultation bilaterally AUSCULTATION: clear to auscultation bilaterally Cardio: COMMON NORMALS: regular rate, regular rhythm and No murmurs present (Cardio) RATE: regular rate RHYTHM: regular rhythm Extremity: COMMON NORMALS: normal to inspection, capillary refill normal, no clubbing, cyanosis or edema, no calf tenderness and no pedal edema Neuro: SENSORIUM/ORIENTATION: Yes oriented to person, Yes oriented to place and Yes oriented to time Skin: COMMON NORMALS: no rashes or lesions noted GENERAL SKIN EXAM: no rashes or lesions noted Course Vital Signs: Vital signs: Vital Signs Temperature 98.0 F 02/08/25 05:30 Pulse Rate 74 02/08/25 05:30 Respiratory Rate 18 02/08/25 05:30 Blood Pressure 133/96 02/08/25 05:30 Pulse Oximetry 100 02/08/25 05:30 Oxygen Delivery Me thod Room Air 02/08/25 05:30 MDM - Dental/Oral Medical Decision Making Area to this fold is causing her quite a bit of discomfort. She is given Toradol injection. She is previous had a gastric bypass cannot use NSAIDs. Advised topical analgesics such as [id number]-juu-pmvnebd Ambi Elise or she can use clove oil. Recommend follow-up with a dentist who originally did the procedure. She was given Augmentin for 7 days although I do not believe at this time appears to be any significant infection. Strongly encouraged to follow-up with her dentist. No radiology studies performed this visit Discharge Plan Discharge Patient Disposition: Home Clinical Impression: Toothache Condition: Stable Prescriptions: New amoxicillin-pot clavulanate 875-125 mg tablet 1 tab PO BID Qty: 14 0RF No Action cetirizine [Zyrtec] 10 mg tablet 10 mg PO DAILY Qty: 30 2RF albuterol sulfate [ProAir HFA] 90 mcg/actuation HFA aerosol inhaler 2 puff INHALATION Q6H PRN (Reason: Shortness Of Breath Or Wheezing) fluticasone propionate [Allergy Relief (fluticasone)] 50 mcg/actuation spray,suspension 2 spray INTRANASAL BID ultra solo multivitamin capsule 1 cap PO DAILY Ca Tkk-W5-F-Jzua-bkksv-rcn bor 250 mg calcium -500 unit tablet PO acetaminophen-codeine 300-60 mg tablet 1 tab PO DAILY PRN cyclobenzaprine 5 mg tablet 5 mg PO DAILY PRN hydroxyzine HCl 50 mg tablet 50 mg PO BID PRN (Reason: anxiety) Qty: 60 2RF Rx Instructions: Take one tablet twice daily, if needed, for anxiety ketoconazole 2 % shampoo 1 applic topical Q14D Qty: 120 6RF Rx Instructions: Lather into scalp 2-3 times weekly. Allowed to sit on scalp for 5 minutes before rinsing. triamcinolone acetonide 0.1 % ointment 1 applic topical BID Qty: 80 0RF Rx Instructions: Apply to affected area no more than 2 weeks/month. Not for use on face. clobetasol 0.05 % solution 1 applic topical DAILY Qty: 50 3RF Rx Instructions: Apply few drops to itchy areas of scalp as needed. Flovent HFA 220 mcg/actuation HFA aerosol inhaler 2 puff INHALATION BID Qty: 12 1RF Rx Instructions: In Cailin Friend absence's acetaminophen [Tylenol] 325 mg Tablet 325 mg PO QID PRN (Reason: pain) Discharge Orders: Discharge ED (Routine); Ordered 02/08/25 Ordered By: Cain Alvarado Referrals: Kentrell Ann [Primary Care Provider, Family Practice] Discharge Diet: Soft Mechanical Discharge Activity: Increase activity as tolerated Patient Instructions: Opioid Safety, Pain Management Activity Restrictions/Additional Instructions: Thank you for choosing [facility] for your healthcare needs today. It is very important that you follow up as instructed or that you return to the Emergency Department should you have concerns or if your condition changes or worsens in any way. You were seen in the emergency room with complaint of tooth pain at the site where you have a tooth pulled. You are given a prescription for short course of antibiotics and diclofenac to use for pain. Follow-up with the dentist who did the original work on your tooth as soon as you are able. Recommend [id number] topical medications at the site where the tooth was pulled such as Anbesol you can also use clove oil as a topical anesthetic. Print Language: Turkmen Coding Level of Care Code ED Tap Dancer for Jess Gamboa
[2025-02-08] MEDS: ketorolac 30 mg/mL INJ IVP (06:10)
== END 2025-02-08 06:20 | disposition home or self-care (01) ==
PROVIDERS: Emergency Provider Family Medicine; PCP Family Medicine
DX: K08.89 Other specified disorders of teeth and supporting structures (principal)
CPT/HCPCS: 96374; 99284; J1885

== ENCOUNTER → 2025-02-14 07:58 | Outpatient (BNVA) | payer MEDICAID, SELFPAY ==
[2025-01-23 15:14] VITALS: BP 131/94; BMI 29.6
== END ==
PROVIDERS: PCP Family Medicine; Visit Provider Student in an Organized Health Care Education/Training Program
DX: M25.561 Pain in right knee (principal); M25.562 Pain in left knee; S83.241A Other tear of medial meniscus, current injury, right knee, initial encounter; X58.XXXA Exposure to other specified factors, initial encounter; M94.262 Chondromalacia, left knee; M94.261 Chondromalacia, right knee
CPT/HCPCS: 20610; 99214; J3301; J9999

== ENCOUNTER 2025-02-15 19:31 | Emergency (ER) | payer MEDICAID, SELFPAY ==
[2025-01-23 15:14] VITALS: BP 131/94; BMI 29.6
[2025-02-15 19:34] VITALS: PULSE 81; RESP 16; TEMP 36.7; O2SAT 99
[2025-02-15 20:57] LABS: Bilirubin Urine Negative (Negative); Blood Urine Negative (Negative); Glucose Urine UA Negative (Normal); Ketones Urine Trace (Negative); Leukocyte Esterase Urine Negative (Negative); Nitrate Urine Negative (Negative); Protein Urine Trace (Negative); Urine Appearance Cloudy (CLEAR); Urine Color Yellow (Yellow)
[2025-02-15 21:00] LABS: Bacteria Urine None Seen /hpf; Hyaline Casts Urine 1.65 /lpf; Squamous Epithelial Cell Urine 0-5 /hpf (0-5); WBC Urine 0-5 /hpf (0-5)
[2025-02-15 21:09] LABS: Specific Gravity, Urine 1.034 (1.005-1.030); UA Slide Review UA Slide Review Perf
[2025-02-15 21:10] LABS: Calcium Oxalate Crystals Urine 25-40 /hpf
--- NOTE | 2025-02-15 21:26 | W.ED.ABDPA2 ---
HPI - Abdominal Pain General: Chief Complaint: Abdominal Pain Stated Complaint: felt tearing in mid low right abd Time Seen by Provider: 02/15/25 20:47 History of Present Illness: 39-year-old female was lifting up some laundry at her house. She thought she felt some sort of a sharp or tearing sensation just right of her umbilicus. Patient got concerned she may have a hernia because she has a history of hernia. She explains that she had a gastric bypass and afterwards had a umbilical hernia. It was repaired and just on the very right lateral side of this incision where she felt the discomfort. She has not seen any mass. No vomiting. No overlying warmth or redness. Pain is minimal at this point. Related Data Home Medications ?Medication ?Instructions ?Recorded ?Confirmed albuterol sulfate 90 mcg/actuation 2 puff inhalation Q6H PRN 09/20/19 01/24/25 aerosol inhaler (ProAir HFA) Shortness Of Breath Or Wheezing fluticasone propionate 50 2 spray intranasal BID 09/20/19 01/24/25 mcg/actuation nasal spray,suspension (Allergy Relief (fluticasone)) acetaminophen 325 mg tablet 325 mg PO QID PRN pain 01/26/23 01/24/25 (Tylenol) ultra solo multivitamin 1 cap PO DAILY 12/01/23 01/24/25 calcium 250 mg-D3 500 unit-vit K tab PO 04/04/24 01/24/25 25 xdt-ghebgdyou-vskhza-borate tablet acetaminophen 300 mg-codeine 60 mg 1 tab PO DAILY PRN 12/06/24 01/24/25 tablet cyclobenzaprine 5 mg tablet 5 mg PO DAILY PRN 12/06/24 01/24/25 Previous Rx's ?Medication ?Instructions ?Recorded cetirizine 10 mg tablet (Zyrtec) 10 mg PO DAILY #30 tabs 11/30/19 fluticasone propionate 220 2 puff inhalation BID #12 grams 12/26/19 mcg/actuation HFA aerosol inhaler (Flovent HFA) clobetasol 0.05 % scalp solution 1 applic topical DAILY #50 mL 11/25/22 ketoconazole 2 % shampoo 1 applic topical Q14D #120 mL 11/25/22 triamcinolone acetonide 0.1 % 1 applic topical BID #80 grams 11/25/22 topical ointment hydroxyzine HCl 50 mg tablet 50 mg PO BID PRN anxiety #60 tabs 12/06/24 amoxicillin 875 mg-potassium 1 tab PO BID #14 tabs 02/08/25 clavulanate 125 mg tablet left and right hinged knee brace #1 ea 02/14/25 Allergies Allergy/AdvReac Type Severity Reaction Status Date / Time aspartame Allergy Severe Headache Verified 02/14/25 08:03 egg Allergy Mild Unknown Verified 02/14/25 08:03 aspirin Allergy ADR/ALGY-Hy Verified 02/14/25 08:03 potension [place] Allergy runny nose Verified 02/14/25 08:03 imipramine Allergy Rash Verified 02/14/25 08:03 milk Allergy bloating Verified 02/14/25 08:03 NSAIDS (Non-Steroidal Allergy Unknown Verified 02/15/25 19:36 Anti-Inflamma Sunblock Allergy Unknown Uncoded 02/14/25 08:03 Review of Systems General: Reports: 10 or more systems reviewed and unremarkable except in HPI and below PFSH ED PFSH: Medical History MDD (major depressive disorder), recurrent, in partial remission FH: thyroid disease FH: colon cancer in relative <50 years old Grandfather at age 40 colon cancer , 01/2023 EGD small Hiatal hernia and polyp's removed, no colonoscopy yet Weight loss, intentional 11/21/2022 274 lbs, 10/07/2023 251 lbs History of prediabetes last A1c 5.4 in 2022 BMI 40.0-44.9, adult Major depressive disorder, recurrent, moderate Psychiatric care Ventral hernia Blood type O- Obesity Generalized anxiety disorder Post-traumatic stress disorder, chronic Migraine without aura Asthma Fibromyalgia Surgical History History of hernia repair (~08/2020) History of cholecystectomy 2016 History of bilateral breast reduction surgery (2007) 2007 breast reduction History of abdominoplasty (2012) 2013 Pannus removal, karen peña @ [facility] Family History Mother Hypertension Diabetes Graves disease Grandmother Stroke Maternal Diabetes Paternal Father Hypercholesterolemia Grandfather Cancer Maternal Grandfather: Mesothelioma Grandfather Colon cancer Paternal---dx age unknown Denies family history of Ovarian cancer Heart disease Breast cancer Uterine cancer Social History Smoking and tobacco/nicotine status: never used tobacco/nicotine Alcohol intake: former Year of sobriety/quit date alcohol: 2010 Substance/Drug Use: never Additional social history: Well-balanced diet No substance abuse. 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 There is no visible or palpable mass on the abdomen. Palpation through the incision around her umbilicus did not reveal any mass. There was no redness. She endorsed mild tenderness with very deep palpation. Valsalva maneuver did not produce any mass. The patient was actually ambulatory in the room in no discomfort when I arrived. She can bring her knees up to her chest and that position without any guarding. Const: COMMON NORMALS: no limitations, alert and well nourished EXAM LIMITATIONS: no altered mental status HENMT: COMMON NORMALS: normocephalic, atraumatic and external ears normal HEAD & SCALP: normocephalic and atraumatic EXTERNAL EAR: Yes external ears normal MOUTH: no muffled voice Eye: COMMON NORMALS: no scleral icterus Neck/C-Spine: COMMON NORMALS: no JVD GENERAL: Yes normal visual inspection and Yes trachea midline Resp: COMMON NORMALS: normal respiratory effort and No use of accessory muscles Cardio: COMMON NORMALS: no JVD and regular rate RATE: regular rate GI: COMMON NORMALS: Soft to palpation and non-tender PALPATION: Yes Soft to palpation and No Guarding due to palpation present (GI) Extremity: COMMON NORMALS: normal to inspection Neuro: COMMON NORMALS: moves all extremities, no focal motor deficits and no sensory deficits noted SENSORIUM/ORIENTATION: Yes alert SPEECH: speech normal Psych: COMMON NORMALS: mental status grossly normal, Normal thought process present, cooperative, normal affect and speech normal SPEECH: Yes normal speech THOUGHT PROCESS: Normal thought process present Skin: COMMON NORMALS: no rashes or lesions noted, turgor normal and no jaundice GENERAL SKIN EXAM: no rashes or lesions noted and turgor normal Course Vital Signs: Vital signs: Vital Signs Temperature 98.1 F 02/15/25 19:34 Pulse Rate 81 02/15/25 19:34 Respiratory Rate 16 02/15/25 19:34 Pulse Oximetry 99 02/15/25 19:34 Oxygen Delivery Me thod Room Air 02/15/25 19:34 MDM - Abdominal Pain Medical Decision Making Differential diagnosis includes small rectus sheath hematoma, sliding incisional hernia, abdominal wall strain, other. There is no evidence of incarcerated or strangulated hernia. She does not have a surgical abdomen. There is no rebound or guarding. She can bring her knees up to her chest and Valsalva maneuver does not reveal any masses. At this time imaging is not required. Will give the patient discharge instructions for possible abdominal wall hernia and strong return precautions. Lab Data Labs/Radiology: Laboratory Results Urine Color Yellow (Yellow) 02/15/25 20:23 Urine Appearance Cloudy (CLEAR) A 02/15/25 20:23 Urine pH 6.0 (5-7) 02/15/25 20:23 Ur Specific [place] 1.034 (1.005-1.030) H 02/15/25 20:23 Urine Protein Trace (Negative) A 02/15/25 20:23 Urine Glucose (UA) Negative (Normal) 02/15/25 20:23 Urine Ketones Trace (Negative) 02/15/25 20:23 Urine Blood Negative (Negative) 02/15/25 20:23 Urine Nitrate Negative (Negative) 02/15/25 20:23 Urine Bilirubin Negative (Negative) 02/15/25 20:23 Urine Urobilinogen 1.0 mg/dL (Negative) 02/15/25 20:23 Ur Leukocyte Esterase Negative (Negative) 02/15/25 20:23 Urine RBC 3-5 /hpf (0-2) 02/15/25 20:23 Urine WBC 0-5 /hpf (0-5) 02/15/25 20:23 Ur Squamous Epith Cells 0-5 /hpf (0-5) 02/15/25 20:23 Calcium Oxalate Crystal 25-40 /hpf H 02/15/25 20:23 Amorphous Sediment Not Reportable 02/15/25 20:23 Urine Bacteria None seen /hpf (NONE) 02/15/25 20:23 Hyaline Casts 1.65 /lpf 02/15/25 20:23 No radiology studies performed this visit Discharge Plan Discharge Patient Disposition: Home Clinical Impression: Abdominal wall pain in right lower quadrant Condition: Stable Prescriptions: No Action cetirizine [Zyrtec] 10 mg tablet 10 mg PO DAILY Qty: 30 2RF albuterol sulfate [ProAir HFA] 90 mcg/actuation HFA aerosol inhaler 2 puff INHALATION Q6H PRN (Reason: Shortness Of Breath Or Wheezing) fluticasone propionate [Allergy Relief (fluticasone)] 50 mcg/actuation spray,suspension 2 spray INTRANASAL BID ultra solo multivitamin capsule 1 cap PO DAILY Ca Vrb-W9-L-Rnsg-engsw-tvh bor 250 mg calcium -500 unit tablet PO acetaminophen-codeine 300-60 mg tablet 1 tab PO DAILY PRN cyclobenzaprine 5 mg tablet 5 mg PO DAILY PRN hydroxyzine HCl 50 mg tablet 50 mg PO BID PRN (Reason: anxiety) Qty: 60 2RF Rx Instructions: Take one tablet twice daily, if needed, for anxiety ketoconazole 2 % shampoo 1 applic topical Q14D Qty: 120 6RF Rx Instructions: Lather into scalp 2-3 times weekly. Allowed to sit on scalp for 5 minutes before rinsing. triamcinolone acetonide 0.1 % ointment 1 applic topical BID Qty: 80 0RF Rx Instructions: Apply to affected area no more than 2 weeks/month. Not for use on face. clobetasol 0.05 % solution 1 applic topical DAILY Qty: 50 3RF Rx Instructions: Apply few drops to itchy areas of scalp as needed. (DME) left and right hinged knee brace See Rx Instructions .Route .MEDSUPPLY Qty: 1 0RF Rx Instructions: As directed Flovent HFA 220 mcg/actuation HFA aerosol inhaler 2 puff INHALATION BID Qty: 12 1RF Rx Instructions: In Cailin perdomo's amoxicillin-pot clavulanate 875-125 mg tablet 1 tab PO BID Qty: 14 0RF acetaminophen [Tylenol] 325 mg Tablet 325 mg PO QID PRN (Reason: pain) Discharge Orders: Discharge ED (Routine); Ordered 02/15/25 Ordered By: Javier Gee Referrals: Kentrell Ann [Primary Care Provider, Family Practice] Patient Instructions: Abdominal Hernia, Abdominal Pain (ED) Activity Restrictions/Additional Instructions: Version:1.0 StartHTML:[id number] EndHTML:[id number] StartFragment:[id number] EndFragment:[id number] Abdominal Hernia Discharge Discharge Instructions for Possible Abdominal Wall Hernia - Diagnosis and Next Steps: You have been evaluated for a possible abdominal wall hernia. Most hernias are not immediately dangerous, but it is important to monitor for any changes in your symptoms. If your hernia is not causing significant pain or other symptoms, a strategy called watchful waiting is considered safe for most men with inguinal hernias. Many patients may eventually require surgery if symptoms worsen, especially pain, but urgent intervention is rarely needed unless complications develop.[1]https://www.nejm.org/doi/full/10.1056/DWOYnn3684655 - When to Seek Immediate Medical Attention: Go to the emergency department or call emergency services if you experience: - Sudden, severe pain at the hernia site - Redness, swelling, or tenderness over the hernia - Nausea, vomiting, or inability to pass gas or have a bowel movement - The hernia becomes hard, tender, and cannot be pushed back in (incarceration or strangulation)[1]https://www.nejm.org/doi/full/10.1056/SOZJhg0064075 - Activity and Lifestyle: - Resume normal daily activities as tolerated. There is no evidence that restricting activity prevents complications or recurrence; pain should be your guide.[2]https://pubmed.ncbi.nlm.nih.gov/31055399[3]https://pubmed.ncbi.nlm.nih.gov/43506515 - Avoid heavy lifting or strenuous exercise if it causes discomfort. - Walking and light activities are encouraged as soon as you feel able. - If you experience pain with activity, reduce the intensity and try again as tolerated. - Work and Driving: - Return to work and driving when you feel comfortable and can perform these activities safely. There is wide variation in recommendations, but most patients can return to office work within 1?2 weeks and to manual labor within 2?6 weeks, depending on symptoms.[4]https://pubmed.ncbi.nlm.nih.gov/72274734 - If your job involves heavy lifting, discuss with your healthcare provider before resuming these duties. - Follow-Up: - Schedule a follow-up appointment as directed to reassess your hernia and discuss long-term management. - Phone follow-up may be appropriate and has been shown to be as safe as in-person visits for monitoring hernia symptoms and complications.[5]https://pubmed.ncbi.nlm.nih.gov/83736183 - If you have any questions or concerns about your hernia or recovery, contact your healthcare provider. T Print Language: Palauan Coding Level of Care Code ED Bluing Oven Tender for Jess Gamboa
[2025-02-15 21:36] VITALS: BP 121/81; PULSE 64; RESP 17; O2SAT 98
--- NOTE | 2025-02-15 21:37 | PC.NURSE ---
Provider ordered an abd binder however non are available, pt to f/u with her PCP for a DME order.
== END 2025-02-15 21:35 | disposition home or self-care (01) ==
PROVIDERS: Emergency Medicine; Emergency Provider Emergency Medicine; PCP Family Medicine
DX: R10.31 Right lower quadrant pain (principal)
CPT/HCPCS: 81001; 99283

== ENCOUNTER → 2025-03-02 12:58 | Outpatient (BNVA) | payer MEDICAID, SELFPAY ==
[2025-01-23 15:14] VITALS: BP 131/94; BMI 29.6
== END ==
PROVIDERS: PCP Family Medicine; Visit Provider Nurse Practitioner Family
DX: L40.0 Psoriasis vulgaris (principal); D22.5 Melanocytic nevi of trunk; L91.0 Hypertrophic scar; L57.8 Other skin changes due to chronic exposure to nonionizing radiation
CPT/HCPCS: 99214

== ENCOUNTER 2025-03-19 23:11 | Emergency (ER) | payer MEDICAID, SELFPAY ==
[2025-01-23 15:14] VITALS: BP 131/94; BMI 29.6
--- OUTSIDE RECORDS SUMMARY | 2025-03-14 13:00 | XMS_ITS | Encounter Summary ---
Author Organization [facility] Address [address] [place] [address] Care Team Providers Care Pull Through Hooker Name Role Phone Kentrell Ann MD Primary Care Provider [phone] Reason for Visit * Reason Comments Blood Sugar Problem Patient is c/o low b lood sugar. Missed Menses Encounter Details Date Type Department Care Team (Late st Contact Info) Description 03/14/2025 1:00 PM CDT Office Visit [facility] Medicine [address] [address] Rashmi Wu, [facility] [address] [address] Hypoglycemia (Primary Dx); Missed menses; Vitamin A deficiency; Mild intermittent asthma, unspecified whether complicated Social History Tobacco Use Types Packs/Day Years Used Date Smoking Tobacco: Never Smokeless Tobacco: Never Tobacco Cessation:Counseling Given: No Alcohol Use Standard Drinks/Week Comments No 0 (1 standard drink = 0.6 oz pur e alcohol) Social Connections Answer Date Recorded In a typical week, how many times do you talk on the telephone with family, friends, or neighbors? Never 10/06/2024 How often do you get togethe r with friends or relatives? More than three times a week 10/06/2024 How often do you attend chur ch or sabianism services? 1 to 4 times per year 10/06/2024 Do you belong to any clubs o r organizations such as voodoo groups, unions, fraternal or athletic groups, or school groups? Yes 10/06/2024 How often do you attend meet ings of the clubs or organizations you belong to? 1 to 4 times per year 10/06/2024 Are you , , di vorced, , never , or living with a partner? 10/06/2024 Feeling Safe Answer Date Recorded Do you worry about feeling s afe and happy with the people in your life? No 10/06/2024 Food Insecurity Answer Date Recorded Do you find you are eating l ess than you should because you can t pay for food? No 10/06/2024 Transportation Needs Answer Date Record ed Have you gone without health care because you didn t have a way to get there? Or worry about transportation for future doctor visits, waste picker medication, etc.? Yes 2024 Housing Stability Answer Date Recorded Do you worry you won t have a steady place to sleep or struggle to pay rent or mortgage? No 10/06/2024 Utility Needs Answer Date Recorded Do you have difficulty payin g for utility costs (electric, water or gas bills)? No 10/06/2024 Medication Needs Answer Date Recorded Have you skipped taking medi cation due to cost or worry you can t afford new medications? 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 Gender Identity Not on file Sexual Orientation Not on file documented as of this encounter Last Filed Vital Signs Vital Sign Reading Time Taken Comments Blood Pressure 120/64 03/14/2025 1:01 PM CDT Pulse 90 03/14/2025 1:01 PM CDT Temperature 36.5 C (97.7 F) 03/14/2025 1:01 PM CDT Respiratory Rate 18 03/14/2025 1:01 PM CDT Oxygen Saturation 100% 03/14/2025 1:01 PM CDT Inhaled Oxygen Concentration - - Weight 82.6 kg (182 lb 2 oz) 03/14/2025 1:01 PM CDT Height 162.6 cm (5' 4 ) 03/14/2025 1:01 PM CDT Body Mass Index 31.26 03/14/2025 1:01 PM CDT documented in this encounter Patient Instructions * Attachments The following attachments cannot be sent through Care Everywhere. * Hypoglycemia (Samoan) documented in this encounter Progress Notes * Rashmi Wu Denia, OCEANOGRAPHY TEACHER - 03/14/2025 1:33 PM CDT Chief Complaint Patient presents with Blood Sugar Problem Patient is c/o low blood sugar. Missed Menses History of Present Illness The patient is a 39-year-old female who presents to discuss her blood sugars. She reports experiencing symptoms such as sweating, dizziness, and shakiness, which she attributes to low blood sugar levels. These symptoms typically occur approximately 2 hours after her last meal,regardless of the sugar content in the food consumed. She has been advised to seek medical attention for these episodes. She has a history of prediabetes and gestational diabetes. She underwent gastric bypass surgery a year ago, which resulted in significant weight loss from 460 pounds to 393 pounds. Her weight loss has been gradual and consistent. She had an A1c test conducted in 11/2024 at [place]. She has a history of asthma since the age of 11 and uses Flovent as part of her treatment regimen. She is due for a mammogram but declines to have it done. She is interested in having an ultrasound instead of a mammogram. GYNECOLOGICAL HISTORY: - Last Menstrual Period: 09/2024 PAST SURGICAL HISTORY: - Gastric bypass surgery: 02/2024 Review of Systems Constitutional: Negative. Negative for weight loss. HENT: Negative. Eyes: Positive for blurred vision. Respiratory: Negative. Negative for shortness of breath. Cardiovascular: Negative. Negative for chest pain, palpitations, orthopnea and PND. Gastrointestinal: Negative. Genitourinary: Negative. Musculoskeletal: Negative. Negative for neck pain. Neurological: Positive for dizziness, tremors and headaches. Negative for seizures and weakness. Endo/Heme/Allergies: Negative. Negative for polydipsia. Psychiatric/Behavioral: The patient is nervous/anxious. BP 120/64 (BP Location: Left arm, Patient Position (BP): Sitting, BP Cuff Size: Adult) Pulse 90 Temp 97.7 ??F (36.5 ??C) (Temporal) Resp 18 Ht 5' 4 (1.626 m) Wt 82.6 kg (182 lb 2 oz) LMP02/01/2025 (Within Days) SpO2 100% BMI 31.26 kg/m?? Physical Exam Respiratory: Clear to auscultation, no wheezing, rales or rhonchi Physical Exam Vitals and nursing note reviewed. Constitutional: Appearance: She is well-developed. HENT: Head: Normocephalic and atraumatic. Right Ear: External ear normal. Left Ear: External ear normal. Nose: Nose normal. Mouth/Throat: Mouth: Mucous membranes are moist. Eyes: Extraocular Movements: Extraocular movements intact. Conjunctiva/sclera: Conjunctivae normal. Cardiovascular: Rate and Rhythm: Normal rate. Pulmonary: Effort: Pulmonary effort is normal. Musculoskeletal: General: Normal range of motion. Cervical back: Normal range of motion. Skin: General: Skin is warm and dry. Neurological: Mental Status: She is alert and oriented to person, place, and time. Psychiatric: Mood and Affect: Mood normal. Behavior: Behavior normal. Thought Content: Thought content normal. Judgment: Judgment normal. Results ICD-10-CM ICD-9-CM 1. Hypoglycemia E16.2 251.2 HEMOGLOBIN A1C TSH CBC WITH DIFFERENTIAL COMPREHENSIVE METABOLIC PANEL COMPREHENSIVE METABOLIC PANEL CBC WITH DIFFERENTIAL TSH HEMOGLOBIN A1C 2. Missed menses N92.6 626.4 HCG QUANTITATIVE, BLOOD HCG QUANTITATIVE, BLOOD 3. Vitamin A deficiency E50.9 264.9 VITAMIN A LEVEL VITAMIN A LEVEL 4. Mild intermittent asthma, unspecified whether complicated J45.20 493.90 fluticasone propionate (FLOVENT HFA) 220 mcg/actuation HFA Aerosol Inhaler Assessment & Plan 1. Hypoglycemia. - Symptoms of sweating, dizziness, and shakiness suggest hypoglycemia. - Comprehensive set of labs will be ordered today, including a recheck of A1c and thyroid function. - Discussed dietary adjustments, specifically increasing protein intake to stabilize blood sugar levels. - Advised to purchase a glucose monitor over the counter to track blood sugar levels during episodes. 2. Asthma. - History of asthma since age 11. - Uses Flovent for management. - Prescription refill for Flovent will be sent to pharmacy. 3. Health Maintenance. - Due for a mammogram but has declined it. - Discussed alternative screening methods such as breast ultrasound or MRI, but patient remains uninterested. 4. Amenorrhea. - Lack of menstrual periods may be attributed to weight loss following gastric bypass surgery. - Will be evaluated with the comprehensive set of labs ordered today. Rashmi PATEL This note was automatically generated by a Generative AI technology ([employer]), reviewed, edited, and finalized by LESLI Laughlin. The author of this note, patient (or authorized denial management representative), and all other persons present consent to the audio recording of this visit for charting documentation purposes. Answers submitted by the patient for this visit: Diabetes Questionnaire (Submitted on 03/14/2025) Chief Complaint: Diabetes problem anxiety: No fatigue: Yes foot paresthesias: Yes foot ulcerations: No polyphagia: No polyuria: Yes peripheral edema: Yes visual change: No confusion: Yes speech difficulty: Yes hunger: Yes mood changes: Yes pallor: No sleepiness: Yes sweats: Yes Eye exam current: No documented in this encounter Plan of Treatment Not on file documented as of this encounter Procedures Procedure Name Priority Date/Time Associated Diagnosis Comments VITAMIN A LEVEL Routine 03/14/2025 1:21 PM CDT Vitamin A deficiency CBC WITH DIFFERENTIAL Routine 03/14/2025 1:21 PM CDT Hypoglycemia HCG QUANTITATIVE, BLOOD Routine 03/14/2025 1:21 PM CDT Missed menses TSH Routine 03/14/2025 1:21 PM CDT Hypoglycemia HEMOGLOBIN A1C Routine 03/14/2025 1:21 PM CDT Hypoglycemia COMPREHENSIVE METABOLIC PANEL Routine 03/14/2025 1:21 PM CDT Hypoglycemia documented in this encounter Results * VITAMIN A LEVEL (03/14/2025 1:21 PM CDT) VITAMIN A LEVEL 45 38 - 98 mcg/dL [facility] Comment: (Note) Clin Chem Vol. 34.No.8. [id number]. 1998 Vitamin supplementation within 24 hours prior to blood draw may affect the accuracy of results. This test was developed and its analytical performance characteristics have been determined by [facility]. It has not been cleared or approved by the FDA. This assay has been validated pursuant to the CLIA regulations and is used for clinical purposes. [facility] [address] [facility] [address] Carlita Grant MD, PhD Test Performed at: [facility] [address], [address] [place] [address] Carlita Grant MD,PhD Blood 03/14/2025 1:21 PM CDT 03/15/2025 2:51 AM CDT us Rashmi Denia Wu OCEANOGRAPHY TEACHER CHEMISTRY ORDERABLES Fin al Result [facility] [phone] [facility] [address] [place] [address], [address] [place] [address] * (ABNORMAL) COMPREHENSIVE METABOLIC PANEL (03/14/2025 1:21 PM CDT) Pathologist [facility] GLUCOSE 107(H) 65 - 99 mg/dL [facility] Comment: Fasting reference interval For someone without known diabetes, a glucose value between 100 and 125 mg/dL is consistent with prediabetes and should be confirmed with a follow-up test. BUN 12 7 - 25 mg/dL [facility] CREATININE 0.86 0.50 - 0.99 mg/dL [facility] GFR 87 > OR = 60 mL/min/1. 73m2 [facility] BUN/CREAT RATIO SEE NOTE: 6 - 22 (calc) [facility] Comment: Not Reported: BUN and Creatinine are within reference range. SODIUM 141 135 - 146 mmol/L [facility] POTASSIUM 4.1 3.5 - 5.3 mmol/L [facility] CHLORIDE 108 98 - 110 mmol/L [facility] CO2 27 20 - 32 mmol/L [facility] CALCIUM 8.6 8.6 - 10.2 mg/dL [facility] TOTAL PROTEIN 6.0(L) 6.1 - 8.1 g/dL [facility] ALBUMIN 3.7 3.6 - 5.1 g/dL [facility] GLOBULIN 2.3 1.9 - 3.7 g/dL (calc) [facility] ALBUMIN/GLOBULIN RATIO 1.6 1.0 - 2.5 (calc) [facility] BILIRUBIN TOTAL 0.8 0.2 - 1.2 mg/dL [facility] ALKALINE PHOSPHATASE 117 31 - 125 U/L [facility] AST 16 10 - 30 U/L [facility] ALT 23 6 - 29 U/L [facility] Comment: Test Performed at: [facility] [address] [place] [address] Lino Rosas MD Blood 03/14/2025 1:21 PM CDT 03/15/2025 2:51 AM CDT Rashmi Wu OCEANOGRAPHY TEACHER CHEMISTRY ORDERABLES Fin al Result [facility] [phone] [facility] [address] [facility] [place] [address] * (ABNORMAL) CBC WITH DIFFERENTIAL (03/14/2025 1:21 PM CDT) WBC 7.7 3.8 - 10.8 Thousand/u L [facility] RBC 4.35 3.80 - 5.10 Million/uL [facility] HEMOGLOBIN 12.4 11.7 - 15.5 g/dL [facility] HEMATOCRIT 39.1 35.0 - 45.0 % [facility] MCV 89.9 80.0 - 100.0 fL [facility] MCH 28.5 27.0 - 33.0 pg [facility] MCHC 31.7(L) 32.0 - 36.0 g/dL [facility] Comment: For adults, a slight decrease in the calculated MCHC value (in the range of 30 to 32 g/dL) is most likely not clinically significant; however, it should be interpreted with caution in correlation with other red cell parameters and the patient's clinical condition. RDW 13.1 11.0 - 15.0 % [facility] PLATELETS 281 140 - 400 Thousand/u L [facility] MPV 11.6 7.5 - 12.5 fL [facility] NEUTROPHIL ABSOLUTE 5,790 1,500 - 7,800 cells/uL [facility] LYMPHOCYTE ABSOLUTE 1,409 850 - 3,900 cells/uL [facility] MONOCYTE ABSOLUTE 400 200 - 950 cells/uL [facility] EOSINOPHIL ABSOLUTE 69 15 - 500 cells/uL [facility] BASOPHILS ABSOLUTE 31 0 - 200 cells/uL [facility] NEUTROPHIL 75.2 % [facility] LYMPHOCYTES 18.3 % [facility] MONOCYTE 5.2 % [facility] EOSINOPHILS 0.9 % [facility] BASOPHILS 0.4 % [facility] Comment: Test Performed at: [facility] [address] [place] [address] Lino Rosas MD Blood 03/14/2025 1:21 PM CDT 03/15/2025 2:51 AM CDT Rashmi Wu OCEANOGRAPHY TEACHER HEMATOLOGY ORDERABLES Fi nal Result [facility] [phone] [facility] [address] * TSH (03/14/2025 1:21 PM CDT) TSH 1.03 mIU/L [facility] Comment: Reference Range > or = 20 Years 0.40-4.50 Ranges First trimester 0.26-2.66 Second trimester 0.55-2.73 Third trimester 0.43-2.91 Test Performed at: [facility] [address] [place] [address] Lino Rosas MD Blood 03/14/2025 1:21 PM CDT 03/15/2025 2:51 AM CDT Rashmi Tororiott [facility] CHEMISTRY ORDERABLES Fin al Result [facility] [phone] [facility] [address] [place] [address] * HEMOGLOBIN A1C (03/14/2025 1:21 PM CDT) HEMOGLOBIN A1C 5.2 <5.7 % [facility] Comment: For the purpose of screening for the presence of diabetes: <5.7% Consistent with the absence of diabetes 5.7-6.4% Consistent with increased risk for diabetes (prediabetes) > or =6.5% Consistent with diabetes This assay result is consistent with a decreased risk of diabetes. Currently, no consensus exists regarding use of hemoglobin A1c for diagnosis of diabetes in children. According to [place] Diabetes Association (ADA) guidelines, hemoglobin A1c <7.0% represents optimal control in non- diabetic patients. Different metrics may apply to specific patient populations. Standards of Medical Care in Diabetes(ADA). ESTIMATED AVERAGE GLUCOSE (MG/DL) 103 mg/dL [facility] ESTIMATED AVERAGE GLUCOSE (MMOL/L) 5.7 mmol/L [facility] Comment: Test Performed at: [facility] [address] [place] [address] Lino Rosas MD Blood 03/14/2025 1:21 PM CDT 03/15/2025 2:51 AM CDT Rashmi Denia MARREROP CHEMISTRY ORDERABLES Fin al Result [facility] [phone] [facility] [address] [place] [address] * HCG QUANTITATIVE, BLOOD (03/14/2025 1:21 PM CDT) HCG QUANT, BLOOD <5 mIU/mL [facility] Comment: Gestational Age Expected hCG values (mIU/mL) <1 Week: 5-50 1-2 Weeks: 50-500 2-3 Weeks: 100-5000 3-4 Weeks: 500-94575 4-5 Weeks: 1000-54222 5-6 Weeks: [address] 6-8 Weeks: [id number] 2-3 Months: [address] The table above provides only a very rough estimate of gestational age and should be used only in conjunction with other methods for establishing gestational age. Much more reliable and accurate estimations of gestational age may be obtained by using LMP or ultrasound. Values from different assay methods may vary. The use of this assay to monitor or to diagnose patients with cancer or any condition unrelated to has not been cleared or approved by the FDA or the pelletizer operator of the assay. Test Performed at: [facility] [address] [place] [address] Lino Rosas MD Blood 03/14/2025 1:21 PM CDT 03/15/2025 2:51 AM CDT Rashmi Wu OCEANOGRAPHY TEACHER CHEMISTRY ORDERABLES Fin al Result [facility] [phone] [facility] [id number] [place] [address] documented in this encounter Visit Diagnoses Diagnosis Hypoglycemia- Primary Hypoglycemia, unspecified Missed menses Absence of menstruation Vitamin A deficiency Unspecified vitamin A deficiency Mild intermittent asthma, unspecified whether complicated documented in this encounter Care Teams Pull Through Hooker Relationship Specialty Start Date End Date Kentrell Ann MD [address] [facility] [facility] [address] [place] [address] PCP - General Family Practice 11/30/23 documented as of this encounter
[2025-03-19 23:12] VITALS: BP 118/79; PULSE 75; RESP 16; TEMP 36.7; O2SAT 99; BMI 29.2
--- OUTSIDE RECORDS SUMMARY | 2025-03-19 23:17 | XMS_ITS | Encounter Summary ---
Author Organization [facility] Address [address] [place] [address] Care Team Providers Care Patron Attendant Name Role Phone Tamiko Christensen MD Primary Care Provid er Reason for Referral * Outpatient Services (Routine) - Closed Specialty Diagnoses / Procedures Referred By Kale richardson Referred To Contact Perinatology Diagnoses At risk for gestational diabetes mellitus Family history of transposition of great vessels Procedures US OB FOLLOW UP PER FETUS Bill Rajan MD Phone: tel: fax: [facility] [place] [address] Phone: tel: fax: Referral ID Status Reason Start Date Expiration Date Visits Requested Visits Authorized [id number] Closed Ordering Department To Schedule 02/11/2018 03/14/2019 1 1 Encounter Details Date Type Department Care Team (Late st Contact Info) Description 02/11/2018 Ancillary Orders [facility] OBGYN-[address] [place] [address] Bill Rajan MD [address] [facility] [place] [phone] At risk for gestational diabetes mellitus; Family history of transposition of great vessels Social History Tobacco Use Types Packs/Day Years Used Date Smoking Tobacco: Never Smokeless Tobacco: Never Alcohol Use Standard Drinks/Week Comments No 0 (1 standard drink = 0.6 oz pur e alcohol) Comments Yes Sex and Gender Information Value Date Recorded Sex Assigned at Not on file 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 Name: DEANDRE PRESCOTT Study Date: 02/16/2018 8:12am Pat. NO: [id number] Referring MD: BILL RAJAN Site: [facility] Folder And Notcher: Art Alcaraz : 1985 Age: 32 INDICATION Other Condition At risk for gestational diabetes mellitus [Z91.89 (ICD-10-CM)]; Family history of transposition of great vessels [Z82.79 (ICD-10-CM)] CODING Procedures 68376: OB US Follow-up HISTORY OB History 3. Para 2 METHOD Transabdominal ultrasound examination. View: Suboptimal view: restricted by patient size Mcnamara . Number of fetuses: 1. DATING GA by stated dating 24 w + 1 d GONZALO by stated dating : 06/07/2018 Stated dating by: First US Study Ultrasound examination on: 02/16/2018 GA by U/S based upon: AC, BPD, EFW, Femur, HC GA by U/S 25 w + 4 d GONZALO by U/S: 05/28/2018 Method of dating: Restore dating from previous exam Assigned: Dating performed on 01/18/2018, based on the stated dating (by First US Study) Assigned GA 24 w + 1 d Assigned GONZALO: 06/07/2018 BIOMETRY Main Biometry: BPD 63.5 mm 25w 5d 90% Hadlock OFD 86.7 mm 27w 6d >99% Michael HC 239.1 mm 26w 0d 91% Hadlock AC 216.9 mm 26w 1d 93% Hadlock Femur 43.8 mm 24w 3d 45% Hadlock HC / AC 1.10 29% Nicolaides Weight Calculation: EFW 816 g 25w 2d 92% Hadlock EFW (lb,oz) 1 lb 13 oz EFW by Hadlock ([id number]) Head / Face / Neck Biometry: Cephalic index 0.73 6% Nicolaides Fireman Helper 3.0 mm Extremities / Bony Struc Biometry: FL / BPD 0.69 FL / HC 0.18 FL / AC 0.20 Other Structures Biometry: AF MVP 6.1 cm TARYN 16.9 cm 69% Hyatt FHR 121 bpm GENERAL EVALUATION Cardiac activity present. FHR 121 bpm. movements present but limited. Presentation raz breech. Placenta Posterior/fundal > 2 cm. Amniotic fluid MVP 6.1 cm. TARYN 16.9 cm. Q1 3.4 cm, Q2 3.7 cm, Q3 3.7 cm, Q4 6.1 cm. ANATOMY The following structures appear normal: 4-chamber view. Stomach: Fluid filled stomach identifed.. Kidneys: Kidneys appear normal bilaterally.. Bladder: Fluid filled bladder identified.. Gender: female. MATERNAL STRUCTURES Right Ovary Not visualized Appearance: No adnexal mass identified. Left Ovary Not visualized Appearance: No adnexal mass identified. Procedure Note Jakob Galeana II, MD - 02/17/2018 [facility] Follow Up Pat. Name:Stephan PRESCOTT Date:02/16/2018 8:12am Pat. NO: [id number] MD:BILL RAJAN [facility] :1985Age:32 INDICATION Other Condition At risk for gestational diabetes mellitus [Z91.89 (ICD-10-CM)]; Family history of transposition of great vessels [Z82.79 (ICD-10-CM)] CODING Procedures 39417: OB US Follow-up HISTORY OB History 3. Para 2 METHOD Transabdominal ultrasound examination. View: Suboptimal view: restrictedby patient size Mcnamara . Number of fetuses: 1. DATING GA by stated dating 24 w + 1 d GONZALO by stated dating :06/07/2018 Stated dating by:First US Study Ultrasound examination on:02/16/2018 GA by U/S based upon:AC, BPD, EFW, Femur, HC GA by U/S25 w + 4 d GONZALO by U/S:05/28/2018 Method of dating:Restore dating from previous exam Assigned:Dating performed on 01/18/2018, based on the stated dating (by First US Study) Assigned GA24 w + 1 d Assigned GONZALO:06/07/2018 BIOMETRY Main Biometry: BPD 63.5 mm 25w 5d90% Hadlock OFD 86.7 mm 27w 6d >99% Michael HC 239.1 mm 26w 0d91% Hadlock AC 216.9 mm 26w 1d93% Hadlock Femur 43.8 mm 24w 3d45% Hadlock HC / AC 1.1029% Nicolaides Weight Calculation: EFW 816 g 25w 2d92% Hadlock EFW (lb,oz) 1 lb 13 oz EFW by Hadlock ([id number]) Head / Face / Neck Biometry: Cephalic index 0.73 6% Nicolaides Fireman Helper 3.0 mm Extremities / Bony Struc Biometry: FL / BPD 0.69 FL / HC 0.18 FL / AC 0.20 Other Structures Biometry: AF MVP 6.1 cm TARYN 16.9 cm69% Hyatt FHR 121 bpm GENERAL EVALUATION Cardiac activity present. FHR 121 bpm. movements present but limited. Presentation raz breech. Placenta Posterior/fundal > 2 cm. Amniotic fluid MVP 6.1 cm. TARYN 16.9 cm. Q1 3.4 cm, Q2 3.7 cm, Q3 3.7 cm,Q4 6.1 cm. ANATOMY The following structures appear normal: 4-chamber view. Stomach: Fluid filled stomach identifed.. Kidneys: Kidneys appear normal bilaterally.. Bladder: Fluid filled bladder identified.. Gender: female. MATERNAL STRUCTURES Right Ovary Not visualized Appearance: No adnexal mass identified. Left Ovary Not visualized Appearance: No adnexal mass identified. IMPRESSION Findings Comment Estimated weight is appropriate for gestational age Bill Rajan MD ORDERABLES Final Resu lt documented in this encounter Visit Diagnoses Diagnosis At risk for gestational diabetes mellitus Family history of transposition of great vessels Family history of congenital anomalies At risk for gestational diabetes mellitus Family history of transposition of great vessels Family history of congenital anomalies documented in this encounter Care Teams Patron Attendant Relationship Specialty Start Date End Date Tamiko Christensen MD [address] [place] [phone] PCP - General Family Practice 05/14/17 documented as of this encounter
--- OUTSIDE RECORDS SUMMARY | 2025-03-19 23:17 | XMS_ITS | Encounter Summary ---
Author Organization [facility] Address [address] [place] [address] Care Team Providers Care Forest Ranger Name Role Phone Kentrell Ann MD Primary Care Provider [phone] Encounter Details Date Type Department Care Team (Latest Contact Info) Description 03/17/2025 Results Follow-Up [facility] [address] [address] Rashmi Wu, [facility] [address] [address] VITAMIN A LEVEL, COMPREHENSIVE METABOLIC PANEL, CBC WITH DIFFERENTIAL, Additional followed-up results: 3 Social History Tobacco Use Types Packs/Day Years [...] often do you attend chur ch or uatsdin services? 1 to 4 times per year 10/06/2024 Do you belong to any clubs o r organizations such as yarsani groups, unions, fraternal or athletic groups, or [...] worry about transportation for future doctor visits, pickle water pump operator medication, etc.? 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
--- OUTSIDE RECORDS SUMMARY | 2025-03-19 23:17 | XMS_ITS | Encounter Summary ---
Author Organization [facility] Address [address] [place] [address] Care Team Providers Care Paint Tinter Name Role Phone Kentrell Ann MD Primary Care Provider [phone] Encounter Details Date Type Department Care Team (Latest Contact Info) Description 10/07/2024 Results Follow-Up [facility] Cinthia Garcia Sheri [address] [place] [address] Efrain Quinn DO [address] [place] [address] ESTRADIOL, HCG QUANTITATIVE, BLOOD, PROGESTERONE Social History Tobacco Use Types Packs/Day Years [...] often do you attend chur ch or yarsani services? 1 to 4 times per year 10/06/2024 Do you belong to any clubs o r organizations such as confucianism groups, unions, fraternal or athletic groups, or [...] worry about transportation for future doctor visits, sampler pickup medication, etc.? Yes 2024 Housing Stability Answer [...] t afford new medications? 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 Her estrogen is in the normal range. Her HCG and progesterone are very low, which indicates the beginning of a menstrual cycle and nocurrent . IER ARTIST documented in this encounter Plan of Treatment Not on file documented as of this encounter Visit Diagnoses Not on filedocumented in this encounter Care Teams Paint Tinter Relationship Specialty Start Date End Date Kentrell Ann MD [address] [facility] [address] [place] [phone] PCP - General Family Practice 11/30/23 documented as of this encounter
--- OUTSIDE RECORDS SUMMARY | 2025-03-19 23:17 | XMS_ITS | Encounter Summary ---
Author Organization [facility] Address [address] [place] [address] Care Team Providers Care Track Repair Person Name Role Phone Tamiko Christensen MD Primary Care Provid er Reason for Referral * Outpatient Services (Routine) - Closed Specialty Diagnoses / Procedures Referred By Kale richardson Referred To Contact Perinatology Diagnoses HTN (hypertension), benign Diet controlled gestational diabetes mellitus (GDM) in third trimester Asthma, unspecified asthma severity, unspecified whether complicated, unspecified whether persistent Procedures US OB LTD 1 OR MORE FETUSES Toshia Rajan MD Phone: tel: fax: [facility] [place] [address] Phone: tel: fax: Referral ID Status Reason Start Date Expiration Date Visits Requested Visits Authorized [id number] Closed Ordering Department To Schedule 04/09/2018 05/10/2019 1 1 * Outpatient Services (Routine) - Closed Specialty Diagnoses / Procedures Referred By Kale richardson Referred To Contact Perinatology Diagnoses HTN (hypertension), benign Diet controlled gestational diabetes mellitus (GDM) in third trimester Asthma, unspecified asthma severity, unspecified whether complicated, unspecified whether persistent Procedures US OB LTD 1 OR MORE FETUSES Toshia Rajan MD Phone: tel: fax: [facility] and [address] [address] Phone: tel: fax: Referral ID Status Reason Start Date Expiration Date Visits Requested Visits Authorized [id number] Closed Ordering Department To Schedule 04/09/2018 05/10/2019 1 1 * Outpatient Services (Routine) - Closed Specialty Diagnoses / Procedures Referred By Kale richardson Referred To Contact Perinatology Diagnoses HTN (hypertension), benign Diet controlled gestational diabetes mellitus (GDM) in third trimester Asthma, unspecified asthma severity, unspecified whether complicated, unspecified whether persistent Procedures US OB LTD 1 OR MORE FETUSES Toshia Rajan MD Phone: tel: fax: [facility] and [address] [address] Phone: tel: fax: Referral ID Status Reason Start Date Expiration Date Visits Requested Visits Authorized [id number] Closed Ordering Department To Schedule 04/09/2018 05/10/2019 1 1 * Outpatient Services (Routine) - Closed Specialty Diagnoses / Procedures Referred By Kale richardson Referred To Contact Perinatology Diagnoses HTN (hypertension), benign Diet controlled gestational diabetes mellitus (GDM) in third trimester Asthma, unspecified asthma severity, unspecified whether complicated, unspecified whether persistent Procedures US OB LTD 1 OR MORE FETUSES Toshia Rajan MD Phone: tel: fax: [facility] [address] [address] Phone: tel: fax: Referral ID Status Reason Start Date Expiration Date Visits Requested Visits Authorized [id number] Closed Ordering Department To Schedule 04/09/2018 05/10/2019 1 1 * Outpatient Services (Routine) - Closed Specialty Diagnoses / Procedures Referred By Contac t Referred To Contact Perinatology Diagnoses HTN (hypertension), benign Diet controlled gestational diabetes mellitus (GDM) in third trimester Asthma, unspecified asthma severity, unspecified whether complicated, unspecified whether persistent Procedures US OB FOLLOW UP PER FETUS Toshia Rajan MD Phone: tel: fax: [facility] [place] [address] Phone: tel: fax: Referral ID Status Reason Start Date Expiration Date Visits Requested Visits Authorized [id number] Closed Ordering Department To Schedule 04/09/2018 05/10/2019 1 1 Encounter Details Date Type Department Care Team (Late st Contact Info) Description 04/09/[address] [facility] [place] [address] Toshia Rajan MD [address] [facility] [place] [address] HTN (hypertension), benign; Diet controlled gestational diabetes mellitus (GDM) in third trimester; Asthma, unspecified asthma severity, unspecified whether complicated, unspecified whether persistent Social History Tobacco Use Types Packs/Day Years Used Date Smoking Tobacco: Never Smokeless Tobacco: Never Alcohol Use Standard Drinks/Week Comments No 0 (1 standard drink = 0.6 oz pur e alcohol) Comments Yes Sex and Gender Information Value Date Recorded Sex Assigned at Not on file Legal Sex Female 11:09 AM 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 Name: SANDRA PRESCOTT Study Date: 05/17/2018 10:50am Pat. NO: [id number] Referring MD: TOSHIA RAJAN Site: [facility] Manager Audit: Marlys Jones : 1985 Age: 32 INDICATION Other Condition Dx: HTN (hypertension), benign [I10 (ICD-10-CM)]; Diet controlled gestational diabetes mellitus (GDM) in third trimester [O24.410 (ICD-10-CM)]; Asthma, unspecified asthma severity, unspecified whether complicated, unspecified whether persistent [J45.909 (ICD-10-CM)] CODING Diagnosis XXX.10: Other condition Z3A.37: Weeks Gestation of Procedures 61334: Limited OB Ultrasound HISTORY OB History 3. Para 2 METHOD Transabdominal ultrasound examination. View: Adequate visualization Mcnamara . Number of fetuses: 1. DATING GA by stated dating 37 w + 0 d GONZALO by stated dating : 06/07/2018 Stated dating by: First US Study Method of dating: Restore dating from previous exam Assigned: Dating performed on 05/03/2018, based on the external assessment (by First US Study) Assigned GA 37 w + 0 d Assigned GONZALO: 06/07/2018 GENERAL EVALUATION Cardiac activity present. FHR 148 bpm. Presentation cephalic. NON STRESS TEST NST interpretation: reactive, Variability: moderate. Baseline FHR 120 bpm. Accelerations: Present. Decelerations: Not present AMNIOTIC FLUID ASSESSMENT MVP 5.9 cm. TARYN 18.2 cm. Q1 3.5 cm, Q2 4.8 cm, Q3 5.9 cm, Q4 4.0 cm Procedure Note Jakob Galeana II, MD - 05/17/2018 [facility] Pat. Name:BASIL PRESCOTTAna Maria Date:05/17/2018 10:50am Pat. NO: [id number] MD:TOSHIA RAJAN Site:[facility] MFMSonographer:Marlys Jones :1985Age:32 INDICATION Other Condition Dx: HTN (hypertension), benign [I10 (ICD-10-CM)]; Diet controlled gestational diabetes mellitus (GDM) in third trimester [O24.410 (ICD-10-CM)]; Asthma, unspecified asthma severity, unspecified whether complicated, unspecified whether persistent [J45.909 (ICD-10-CM)] CODING Diagnosis XXX.10: Other condition Z3A.37: Weeks Gestation of Procedures 68989: Limited OB Ultrasound HISTORY OB History 3. Para 2 METHOD Transabdominal ultrasound examination. View: Adequate visualization Mcnamara . Number of fetuses: 1. DATING GA by stated dating 37 w + 0 d GONZALO by stated dating :06/07/2018 Stated dating by:First US Study Method of dating:Restore dating from previous exam Assigned:Dating performed on 05/03/2018, based on the external assessment (by First US Study) Assigned GA37 w + 0 d Assigned GONZALO:06/07/2018 GENERAL EVALUATION Cardiac activity present. FHR 148 bpm. Presentation cephalic. NON STRESS TEST NST interpretation: reactive, Variability: moderate. Baseline FHR 120 bpm. Accelerations: Present. Decelerations: Not present AMNIOTIC FLUID ASSESSMENT MVP 5.9 cm. TARYN 18.2 cm. Q1 3.5 cm, Q2 4.8 cm, Q3 5.9 cm, Q4 4.0 cm IMPRESSION Findings Comment Reassuring modified biophysical profile us Toshia Rajan MD US ORDERABLES Final Resu lt * US OB FOLLOW UP PER FETUS (05/10/2018 10:33 AM CDT) Anatomical Region Laterality Modality Pelvis Ultrasound 05/10/2018 10:1 8 AM CDT Impressions 05/10/2018 3:07 PM CDT IMPRESSION Findings Comment Estimated weight is appropriate for gestational age Reassuring modified biophysical profile Narrative 05/10/2018 3:07 PM T [facility] Pat. Name: SANDRA PERSCOTT Study Date: 05/10/2018 10:18am Pat. NO: [id number] Referring MD: TOSHIA RAJAN Site: [facility] Manager Audit: Francy Ross : 1985 Age: 32 INDICATION Maternal Hypertension, Chronic Diabetes - Gestational (unspecified) Maternal Asthma CODING Diagnosis O10.013: Pre-existing essential hypertension complicating O24.419: Gestational diabetes mellitus in , unspecified control O99.513: Diseases of the respiratory system complicating Z3A.36: Weeks Gestation of Procedures 84256: OB US Follow-up HISTORY OB History 3. Para 2 METHOD Transabdominal ultrasound examination. View: Adequate visualization Mcnamara . Number of fetuses: 1. DATING GA by stated dating 36 w + 0 d GONZALO by stated dating : 06/07/2018 Stated dating by: First US Study Ultrasound examination on: 05/10/2018 GA by U/S based upon: AC, BPD, EFW, Femur, HC GA by U/S 37 w + 2 d GONZALO by U/S: 05/29/2018 Method of dating: Restore dating from previous exam Assigned: Dating performed on 05/03/2018, based on the external assessment (by First US Study) Assigned GA 36 w + 0 d Assigned GONZALO: 06/07/2018 BIOMETRY Main Biometry: BPD 92.0 mm 37w 3d 89% Hadlock OFD 115.3 mm -/- 93% Michael HC 328.1 mm 37w 2d 51% Hadlock AC 343.7 mm 38w 2d 98% Hadlock Femur 69.0 mm 35w 3d 30% Hadlock HC / AC 0.95 13% Nicolaides Weight Calculation: EFW 3,198 g 37w 6d 85% Hadlock EFW (lb,oz) 7 lb 1 oz EFW by Hadlock ([id number]) Head / Face / Neck Biometry: Cephalic index 0.80 34% Nicolaides Extremities / Bony Struc Biometry: FL / BPD 0.75 FL / HC 0.21 FL / AC 0.20 Other Structures Biometry: AF MVP 5.3 cm TARYN 15.5 cm 60% Hyatt FHR 154 bpm GENERAL EVALUATION Cardiac activity present. FHR 154 bpm. Presentation cephalic. Placenta posterior, fundal. Amniotic fluid MVP 5.3 cm. TARYN 15.5 cm. Q1 5.3 cm, Q2 2.8 cm, Q3 4.4 cm, Q4 3.0 cm. ANATOMY The following structures appear normal: Stomach: Fluid filled stomach visualized. Kidneys: Kidneys appear normal bilaterally.. Bladder: Fluid filled bladder visualized. The following structures could not be adequately visualized: 4-chamber view. NON STRESS TEST NST interpretation: reactive, Variability: moderate. Baseline FHR 130 bpm. Accelerations: Present. Decelerations: Not present Procedure Note Jakob Galeana II, MD - 05/10/2018 [facility] Pat. Name:Stephan PRESCOTT Date:05/10/2018 10:18am Pat. NO: [id number] MD:TOSHIA RAJAN [facility] :1985Age:32 INDICATION Maternal Hypertension, Chronic Diabetes - Gestational (unspecified) Maternal Asthma CODING Diagnosis O10.013: Pre-existing essential hypertension complicating O24.419: Gestational diabetes mellitus in , unspecified control O99.513: Diseases of the respiratory system complicating Z3A.36: Weeks Gestation of Procedures 61515: OB US Follow-up HISTORY OB History 3. Para 2 METHOD Transabdominal ultrasound examination. View: Adequate visualization Mcnamara . Number of fetuses: 1. DATING GA by stated dating 36 w + 0 d GONZALO by stated dating :06/07/2018 Stated dating by:First US Study Ultrasound examination on:05/10/2018 GA by U/S based upon:AC, BPD, EFW, Femur, HC GA by U/S37 w + 2 d GONZALO by U/S:05/29/2018 Method of dating:Restore dating from previous exam Assigned:Dating performed on 05/03/2018, based on the external assessment (by First US Study) Assigned GA36 w + 0 d Assigned GONZALO:06/07/2018 BIOMETRY Main Biometry: BPD 92.0 mm 37w 3d89% Hadlock OFD 115.3 mm -/-93% Michael HC 328.1 mm 37w 2d51% Hadlock AC 343.7 mm 38w 2d98% Hadlock Femur 69.0 mm 35w 3d30% Hadlock HC / AC 0.9513% Nicolaides Weight Calculation: EFW 3,198 g 37w 6d85% Hadlock EFW (lb,oz) 7 lb 1 oz EFW by Hadlock (PFI-UH-AL-FL) Head / Face / Neck Biometry: Cephalic index 0.8034% Nicolaides Extremities / Bony Struc Biometry: FL / BPD 0.75 FL / HC 0.21 FL / AC 0.20 Other Structures Biometry: AF MVP 5.3 cm TARYN 15.5 cm60% Hyatt FHR 154 bpm GENERAL EVALUATION Cardiac activity present. FHR 154 bpm. Presentation cephalic. Placenta posterior, fundal. Amniotic fluid MVP 5.3 cm. TARYN 15.5 cm. Q1 5.3 cm, Q2 2.8 cm, Q3 4.4 cm,Q4 3.0 cm. ANATOMY The following structures appear normal: Stomach: Fluid filled stomach visualized. Kidneys: Kidneys appear normal bilaterally.. Bladder: Fluid filled bladder visualized. The following structures could not be adequately visualized: 4-chamber view. NON STRESS TEST NST interpretation: reactive, Variability: moderate. Baseline FHR 130 bpm. Accelerations: Present. Decelerations: Not present IMPRESSION Findings Comment Estimated weight is appropriate for gestational age Reassuring modified biophysical profile us Toshia Rajan MD US ORDERABLES Final Resu lt * US OB LTD 1 OR MORE FETUSES (05/03/2018 2:54 PM CDT) Anatomical Region Laterality Modality Pelvis Ultrasound 05/03/2018 1:56 PM CDT Impressions 05/03/2018 4:49 PM CDT IMPRESSION Findings Comment Reassuring modified biophysical profile Narrative 05/03/2018 4:49 PM CDT [facility] Pat. Name: SANDRA PRESCOTT Study Date: 05/03/2018 1:56pm Pat. NO: [id number] Referring MD: TOSHIA RAJAN Site: [facility] Manager Audit: Marlys Jones : 1985 Age: 32 INDICATION Other Condition Dx: HTN (hypertension), benign [I10 (ICD-10-CM)]; Diet controlled gestational diabetes mellitus (GDM) in third trimester [O24.410 (ICD-10-CM)]; Asthma, unspecified asthma severity, unspecified whether complicated, unspecified whether persistent [J45.909 (ICD-10-CM)] CODING Diagnosis XXX.10: Other condition Z3A.35: Weeks Gestation of Procedures 54611: Limited OB Ultrasound HISTORY OB History 3. Para 2 METHOD Transabdominal ultrasound examination. View: Adequate visualization Mcnamara . Number of fetuses: 1. DATING Method of dating: based on the external assessment GA by stated dating 35 w + 0 d GONZALO by stated dating : 06/07/2018 Stated dating by: First US Study Assigned: Dating performed on 05/03/2018, based on the external assessment (by First US Study) Assigned GA 35 w + 0 d Assigned GONZALO: 06/07/2018 GENERAL EVALUATION Cardiac activity present. FHR 119 bpm. Presentation cephalic. NON STRESS TEST NST interpretation: reactive, Variability: moderate. Baseline FHR 140 bpm. Accelerations: Present. Decelerations: Not present AMNIOTIC FLUID ASSESSMENT MVP 5.2 cm. TARYN 13.6 cm. Q1 2.7 cm, Q2 4.0 cm, Q3 1.7 cm, Q4 5.2 cm Procedure Note Kervin URIBE, Jakob Ornelas MD - 05/03/2018 [facility] Pat. Name:Stephan PRESCOTT Date:05/03/2018 1:56pm Pat. NO: [id number] :TOSHIA CUELLARBONS [facility]arly[facility] :1985Age:32 INDICATION Other Condition Dx: HTN (hypertension), benign [I10 (ICD-10-CM)]; Diet controlled gestational diabetes mellitus (GDM) in third trimester [O24.410 (ICD-10-CM)]; Asthma, unspecified asthma severity, unspecified whether complicated, unspecified whether persistent [J45.909 (ICD-10-CM)] CODING Diagnosis XXX.10: Other condition Z3A.35: Weeks Gestation of Procedures 29235: Limited OB Ultrasound HISTORY OB History 3. Para 2 METHOD Transabdominal ultrasound examination. View: Adequate visualization Mcnamara . Number of fetuses: 1. DATING Method of dating:based on the external assessment GA by stated dating 35 w + 0 d GONZALO by stated dating :06/07/2018 Stated dating by:First US Study Assigned:Dating performed on 05/03/2018, based on the external assessment (by First US Study) Assigned GA35 w + 0 d Assigned GONZALO:06/07/2018 GENERAL EVALUATION Cardiac activity present. FHR 119 bpm. Presentation cephalic. NON STRESS TEST NST interpretation: reactive, Variability: moderate. Baseline FHR 140 bpm. Accelerations: Present. Decelerations: Not present AMNIOTIC FLUID ASSESSMENT MVP 5.2 cm. TARYN 13.6 cm. Q1 2.7 cm, Q2 4.0 cm, Q3 1.7 cm, Q4 5.2 cm IMPRESSION Findings Comment Reassuring modified biophysical profile us Toshia Rajan MD US ORDERABLES Final Resu lt * US OB LTD 1 OR MORE FETUSES (04/26/2018 11:29 AM CDT) Anatomical Region Laterality Modality Pelvis Ultrasound 04/26/2018 11:0 2 AM CDT Impressions 04/26/2018 5:03 PM CDT IMPRESSION Findings Comment Reassuring modified biophysical profile Narrative 04/26/2018 5:03 PM CDT [facility] Pat. Name: SANDRA PRESCOTT Study Date: 04/26/2018 11:02am Pat. NO: [id number] Referring MD: TOSHIA RAJAN Site: [facility] Manager Audit: Marlys Jones : 1985 Age: 32 INDICATION Other Condition Dx: HTN (hypertension), benign [I10 (ICD-10-CM)]; Diet controlled gestational diabetes mellitus (GDM) in third trimester [O24.410 (ICD-10-CM)]; CODING Diagnosis XXX.10: Other condition Z3A.34: Weeks Gestation of Procedures 90907: Limited OB Ultrasound HISTORY OB History 3. Para 2 METHOD Transabdominal ultrasound examination. View: Adequate visualization Mcnamara . Number of fetuses: 1. DATING GA by stated dating 34 w + 0 d GONZALO by stated dating : 06/07/2018 Stated dating by: First US Study Method of dating: Restore dating from previous exam Assigned: Dating performed on 01/18/2018, based on the stated dating (by First US Study) Assigned GA 34 w + 0 d Assigned GONZALO: 06/07/2018 GENERAL EVALUATION Cardiac activity present. FHR 150 bpm. NON STRESS TEST NST interpretation: reactive, Variability: moderate. Baseline FHR 135 bpm. Accelerations: Present. Decelerations: Not present AMNIOTIC FLUID ASSESSMENT MVP 6.2 cm. TARYN 13.8 cm. Q1 6.2 cm, Q2 3.6 cm, Q3 4.0 cm, Q4 0.0 cm Procedure Note Kervin URIBE, Jakob Ornelas MD - 04/26/2018 [facility] Pat. Name:SANDRA PRESCOTTZan Date:04/26/2018 11:02am Pat. NO: [id number] MD:TOSHIA RAJAN Site:[facility] MFMSonographer:Marlys Jones :1985Age:32 INDICATION Other Condition Dx: HTN (hypertension), benign [I10 (ICD-10-CM)]; Diet controlled gestational diabetes mellitus (GDM) in third trimester [O24.410 (ICD-10-CM)]; CODING Diagnosis XXX.10: Other condition Z3A.34: Weeks Gestation of Procedures 84158: Limited OB Ultrasound HISTORY OB History 3. Para 2 METHOD Transabdominal ultrasound examination. View: Adequate visualization Mcnamara . Number of fetuses: 1. DATING GA by stated dating 34 w + 0 d GONZALO by stated dating :06/07/2018 Stated dating by:First US Study Method of dating:Restore dating from previous exam Assigned:Dating performed on 01/18/2018, based on the stated dating (by First US Study) Assigned GA34 w + 0 d Assigned GONZALO:06/07/2018 GENERAL EVALUATION Cardiac activity present. FHR 150 bpm. NON STRESS TEST NST interpretation: reactive, Variability: moderate. Baseline FHR 135 bpm. Accelerations: Present. Decelerations: Not present AMNIOTIC FLUID ASSESSMENT MVP 6.2 cm. TARYN 13.8 cm. Q1 6.2 cm, Q2 3.6 cm, Q3 4.0 cm, Q4 0.0 cm IMPRESSION Findings Comment Reassuring modified biophysical profile us Toshia Rajan MD US ORDERABLES Final Resu lt * US OB LTD 1 OR MORE FETUSES (04/19/2018 12:03 PM CDT) Anatomical Region Laterality Modality Pelvis Ultrasound 04/19/2018 11:5 1 AM CDT Impressions 04/19/2018 4:25 PM CDT IMPRESSION Findings Comment Reassuring modified biophysical profile Narrative 04/19/2018 4:25 PM CDT [facility] Pat. Name: SANDRA PRESCOTT Study Date: 04/19/2018 11:51am Pat. NO: [id number] Referring MD: TOSHIA RAJAN Site: [facility] Manager Audit: Marlys Jones : 1985 Age: 32 INDICATION Diabetes - Gestational (insulin) CODING Diagnosis O24.414: Gestational diabetes mellitus in , insulin controlled Z3A.33: Weeks Gestation of Procedures 92651: Limited OB Ultrasound HISTORY OB History 3. Para 2 METHOD Transabdominal ultrasound examination. View: Adequate visualization Mcnamara . Number of fetuses: 1. DATING GA by stated dating 33 w + 0 d GONZALO by stated dating : 06/07/2018 Stated dating by: First US Study Method of dating: Restore dating from previous exam Assigned: Dating performed on 01/18/2018, based on the stated dating (by First US Study) Assigned GA 33 w + 0 d Assigned GONZALO: 06/07/2018 GENERAL EVALUATION Cardiac activity present. FHR 141 bpm. Presentation cephalic. NON STRESS TEST NST interpretation: reactive, Variability: moderate. Baseline FHR 135 bpm. Accelerations: Present. Decelerations: Not present AMNIOTIC FLUID ASSESSMENT MVP 5.4 cm. TARYN 8.9 cm. Q1 0.0 cm, Q2 3.6 cm, Q3 0.0 cm, Q4 5.4 cm Procedure Note Jakob Galeana II, MD - 04/19/2018 [facility] Name:Stephan PRESCOTT Date:04/19/2018 11:51am Pat. NO: [id number] MD:TOSHIA RAJAN [facility] :1985Age:32 INDICATION Diabetes - Gestational (insulin) CODING Diagnosis O24.414: Gestational diabetes mellitus in , insulin controlled Z3A.33: Weeks Gestation of Procedures 55378: Limited OB Ultrasound HISTORY OB History 3. Para 2 METHOD Transabdominal ultrasound examination. View: Adequate visualization Mcnamara . Number of fetuses: 1. DATING GA by stated dating 33 w + 0 d GONZALO by stated dating :06/07/2018 Stated dating by:First US Study Method of dating:Restore dating from previous exam Assigned:Dating performed on 01/18/2018, based on the stated dating (by First US Study) Assigned GA33 w + 0 d Assigned GONZALO:06/07/2018 GENERAL EVALUATION Cardiac activity present. FHR 141 bpm. Presentation cephalic. NON STRESS TEST NST interpretation: reactive, Variability: moderate. Baseline FHR 135 bpm. Accelerations: Present. Decelerations: Not present AMNIOTIC FLUID ASSESSMENT MVP 5.4 cm. TARYN 8.9 cm. Q1 0.0 cm, Q2 3.6 cm, Q3 0.0 cm, Q4 5.4 cm IMPRESSION Findings Comment Reassuring modified biophysical profile us Toshia Rajan MD ORDERABLES Final Resu lt documented in this encounter Visit Diagnoses Diagnosis HTN (hypertension), benign Essential hypertension, benign Diet controlled gestational diabetes mellitus (GDM) in third trimester Asthma, unspecified asthma severity, unspecified whether complicated, unspecified whether persistent HTN (hypertension), benign Essential hypertension, benign Diet controlled gestational diabetes mellitus (GDM) in third trimester Asthma, unspecified asthma severity, unspecified whether complicated, unspecified whether persistent HTN (hypertension), benign Essential hypertension, benign Diet controlled gestational diabetes mellitus (GDM) in third trimester Asthma, unspecified asthma severity, unspecified whether complicated, unspecified whether persistent HTN (hypertension), benign Essential hypertension, benign Diet controlled gestational diabetes mellitus (GDM) in third trimester Asthma, unspecified asthma severity, unspecified whether complicated, unspecified whether persistent HTN (hypertension), benign Essential hypertension, benign Diet controlled gestational diabetes mellitus (GDM) in third trimester Asthma, unspecified asthma severity, unspecified whether complicated, unspecified whether persistent HTN (hypertension), benign Essential hypertension, benign Diet controlled gestational diabetes mellitus (GDM) in third trimester Asthma, unspecified asthma severity, unspecified whether complicated, unspecified whether persistent documented in this encounter Care Teams Track Repair Person Relationship Specialty Start Date End Date Tamiko Christensen MD [address] [place] [id number] PCP - General Family Practice 05/14/17 documented as of this encounter
--- OUTSIDE RECORDS SUMMARY | 2025-03-19 23:17 | XMS_ITS | Encounter Summary ---
Author Organization [facility] Address [address] [place] [address] Care Team Providers Care Post Splitter Name Role Phone Tamiko Christensen MD Primary Care Provid er Reason for Referral * Outpatient Services (Routine) - Closed Specialty Diagnoses / Procedures Referred By Kale richardson Referred To Contact Perinatology Diagnoses At risk for gestational diabetes mellitus Family history of transposition of great vessels Procedures ECHO 2D + COLOR FLOW VELOCITY Toshia Rajan MD Phone: tel: fax: [facility] [address] Phone: tel: fax: Referral ID Status Reason Start Date Expiration Date Visits Requested Visits Authorized [id number] Closed Ordering Department To Schedule 01/14/2018 02/14/2019 1 1 * Outpatient Services (Routine) - Closed Specialty Diagnoses / Procedures Referred By Kale richardson Referred To Contact Perinatology Diagnoses At risk for gestational diabetes mellitus Procedures US OB FOLLOW UP PER FETUS Toshia Rajan MD Phone: tel: fax: [facility] [place] [address] Phone: tel: fax: Referral ID Status Reason Start Date Expiration Date Visits Requested Visits Authorized [id number] Closed Ordering Department To Schedule 01/14/2018 02/14/2019 1 1 * Outpatient Services (Routine) - Closed Specialty Diagnoses / Procedures Referred By Kale t Referred To Contact Perinatology Diagnoses At risk for gestational diabetes mellitus Procedures US OB FOLLOW UP PER FETUS Toshia Rajan MD Phone: tel: fax: [facility] [place] [address] Phone: tel: fax: Referral ID Status Reason Start Date Expiration Date Visits Requested Visits Authorized [id number] Closed Ordering Department To Schedule 01/14/2018 02/14/2019 1 1 Encounter Details Date Type Department Care Team (Late st Contact Info) Description 01/14/2018 Ancillary Orders [facility] OBGYN[address] [place] [address] Toshia Rajan MD [address] [facility], [facility] [address] [place] [address] At risk for gestational diabetes mellitus; Family [...] on file Legal Sex Female 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 Gender Identity Not on file Sexual Orientation Not on file Occupation Industry Job Start Date Job End Date Not on file Not on file Not on file Not on file documented as of this encounter Plan of Treatment Not on file documented as of this encounter Results * US OB FOLLOW UP PER FETUS (04/12/2018 11:20 AM CDT) Anatomical Region Laterality Modality Pelvis Ultrasound 04/12/2018 10:3 5 AM CDT Impressions 04/12/2018 5:09 PM CDT IMPRESSION Findings Comment Estimated weight is appropriate for gestational age Reassuring modified biophysical profile Narrative 04/12/2018 5:09 PM T [place] Follow Up Pat. Name: SANDRA PRESCOTT Study Date: 04/12/2018 10:35am Pat. NO: [id number] Referring MD: TOSHIA RAJAN Site: [facility] Microsoft Exchange Administrator: Marlys Jones : 1985 Age: 32 INDICATION Maternal Hypertension, Chronic CODING Procedures 72558: OB US Follow-up HISTORY OB History 3. Para 2 METHOD Transabdominal ultrasound examination. View: Adequate visualization Mcnamara . Number of fetuses: 1. DATING GA by stated dating 32 w + 0 d GONZALO by stated dating : 06/07/2018 Stated dating by: First US Study Ultrasound examination on: 04/12/2018 GA by U/S based upon: AC, BPD, EFW, Femur, HC GA by U/S 33 w + 2 d GONZALO by U/S: 05/29/2018 Method of dating: Restore dating from previous exam Assigned: Dating performed on 01/18/2018, based on the stated dating (by First US Study) Assigned GA 32 w + 0 d Assigned GONZALO: 06/07/2018 BIOMETRY Main Biometry: BPD 84.5 mm 34w 0d 91% Hadlock OFD 106.7 mm 35w 2d 96% Michael HC 307.3 mm 34w 2d 74% Hadlock AC 283.0 mm 32w 2d 59% Hadlock Femur 63.9 mm 33w 0d 65% Hadlock HC / AC 1.09 68% Nicolaides Weight Calculation: EFW 2,070 g 32w 4d 67% Hadlock EFW (lb,oz) 4 lb 9 oz EFW by Hadlock ([id number]) Head / Face / Neck Biometry: Cephalic index 0.79 44% Jeramie Needle Felt Making Machine Operator 6.1 mm Extremities / Bony Struc Biometry: FL / BPD 0.76 FL / HC 0.21 FL / AC 0.23 Other Structures Biometry: AF MVP 5.6 cm TARYN 16.7 cm 65% Hyatt FHR 141 bpm GENERAL EVALUATION Cardiac activity present. FHR 141 bpm. Presentation cephalic. Amniotic fluid MVP 5.6 cm. TARYN 16.7 cm. Q1 3.0 cm, Q2 5.6 cm, Q3 3.8 cm, Q4 4.4 cm. ANATOMY The following structures appear normal: 4-chamber view. Stomach: Fluid filled stomach visualized. Kidneys: Kidneys appear normal bilaterally.. Bladder: Fluid filled bladder visualized. Gender: female. NON STRESS TEST NST interpretation: reactive, Variability: moderate. Baseline FHR 125 bpm. Accelerations: Present. Decelerations: Not present Procedure Note Jakob Galeana II, MD - 04/12/2018 [place] Follow Up Pat. Name:Stephan PRESCOTT Date:04/12/2018 10:35am Pat. NO: [id number] MD:TOSHIA RAJAN Site:[place] MFMSonographer:Marlys Jones :1985Age:32 INDICATION Maternal Hypertension, Chronic CODING Procedures 94508: OB US Follow-up HISTORY OB History 3. Para 2 METHOD Transabdominal ultrasound examination. View: Adequate visualization Mcnamara . Number of fetuses: 1. DATING GA by stated dating 32 w + 0 d GONZALO by stated dating :06/07/2018 Stated dating by:First US Study Ultrasound examination on:04/12/2018 GA by U/S based upon:AC, BPD, EFW, Femur, HC GA by U/S33 w + 2 d GONZALO by U/S:05/29/2018 Method of dating:Restore dating from previous exam Assigned:Dating performed on 01/18/2018, based on the stated dating (by First US Study) Assigned GA32 w + 0 d Assigned GONZALO:06/07/2018 BIOMETRY Main Biometry: BPD 84.5 mm 34w 0d91% Hadlock OFD 106.7 mm 35w 2d96% Michael HC 307.3 mm 34w 2d74% Hadlock AC 283.0 mm 32w 2d59% Hadlock Femur 63.9 mm 33w 0d65% Hadlock HC / AC 1.0968% Nicolaides Weight Calculation: EFW 2,070 g 32w 4d67% Hadlock EFW (lb,oz) 4 lb 9 oz EFW by Hadlock ([id number]-FL) Head / Face / Neck Biometry: Cephalic index 0.7944% Nicolaides Needle Felt Making Machine Operator 6.1 mm Extremities / Bony Struc Biometry: FL / BPD 0.76 FL / HC 0.21 FL / AC 0.23 Other Structures Biometry: AF MVP 5.6 cm TARYN 16.7 cm65% Hyatt FHR 141 bpm GENERAL EVALUATION Cardiac activity present. FHR 141 bpm. Presentation cephalic. Amniotic fluid MVP 5.6 cm. TARYN 16.7 cm. Q1 3.0 cm, Q2 5.6 cm, Q3 3.8 cm,Q4 4.4 cm. ANATOMY The following structures appear normal: 4-chamber view. Stomach: Fluid filled stomach visualized. Kidneys: Kidneys appear normal bilaterally.. Bladder: Fluid filled bladder visualized. Gender: female. NON STRESS TEST NST interpretation: reactive, Variability: moderate. Baseline FHR 125 bpm. Accelerations: Present. Decelerations: Not present IMPRESSION Findings Comment Estimated weight is appropriate for gestational age Reassuring modified biophysical profile us Toshia Rajan MD US ORDERABLES Final Resu lt * US OB FOLLOW UP PER FETUS (03/15/2018 9:02 AM CDT) Anatomical Region Laterality Modality Pelvis Ultrasound 03/15/2018 8:23 AM CDT Impressions 03/15/2018 4:30 PM CDT IMPRESSION Findings Comment Estimated weight is large for gestational age Narrative 03/15/2018 4:30 PM T [place] Follow Up Pat. Name: SANDRA PRESCOTT Study Date: 03/15/2018 8:23am Pat. NO: [id number] Referring MD: TOSHIA RAJAN Site: [facility] [employer] Exchange Administrator: Karina Seymour : 1985 Age: 32 INDICATION Other Condition Dx: At risk for gestational diabetes mellitus [Z91.89 (ICD-10-CM)] CODING Diagnosis XXX.10: Other condition Z3A.28: Weeks Gestation of Procedures 45092: OB US Follow-up HISTORY OB History 3. Para 2 METHOD Transabdominal ultrasound examination Mcnamara . Number of fetuses: 1. DATING GA by stated dating 28 w + 0 d GONZALO by stated dating : 06/07/2018 Stated dating by: First US Study Ultrasound examination on: 03/15/2018 GA by U/S based upon: AC, BPD, EFW, Femur, HC GA by U/S 29 w + 4 d GONZALO by U/S: 05/27/2018 Method of dating: Restore dating from previous exam Assigned: Dating performed on 01/18/2018, based on the stated dating (by First US Study) Assigned GA 28 w + 0 d Assigned GONZALO: 06/07/2018 BIOMETRY Main Biometry: BPD 73.4 mm 29w 3d 82% Hadlock OFD 98.1 mm 31w 5d >99% Michael HC 275.5 mm 30w 1d 83% Hadlock AC 260.7 mm 30w 2d 94% Hadlock Femur 53.7 mm 28w 3d 49% Hadlock HC / AC 1.06 27% Nicolaides Weight Calculation: EFW 1,419 g 29w 2d 90% Hadlock EFW (lb,oz) 3 lb 2 oz EFW by Hadlock ([id number]-FL) Head / Face / Neck Biometry: Cephalic index 0.75 12% Nicolaides Needle Felt Making Machine Operator 5.7 mm Extremities / Bony Struc Biometry: FL / BPD 0.73 FL / HC 0.19 FL / AC 0.21 Other Structures Biometry: AF MVP 4.1 cm TARYN 14.2 cm 45% Hyatt FHR 131 bpm GENERAL EVALUATION Cardiac activity present. FHR 131 bpm. movements visualized. Presentation cephalic. Amniotic fluid MVP 4.1 cm. TARYN 14.2 cm. Q1 4.1 cm, Q2 3.4 cm, Q3 3.7 cm, Q4 3.1 cm. ANATOMY The following structures appear normal: 4-chamber view. Stomach: Fluid filled stomach identifed.. Kidneys: Kidneys appear normal bilaterally.. Bladder: Fluid filled bladder identified.. Gender: female. Procedure Note Kervin URIBE, Jakob Ornelas MD - 03/15/2018 [place] Follow Up Pat. Name:Stephan PRESCOTT Date:03/15/2018 8:23am Pat. NO: [id number] MD:TOSHIA RAJAN [facility] Seym[facility] :1985Age:32 INDICATION Other Condition Dx: At risk for gestational diabetes mellitus [Z91.89 (ICD-10-CM)] CODING Diagnosis XXX.10: Other condition Z3A.28: Weeks Gestation of Procedures 36418: OB US Follow-up HISTORY OB History 3. Para 2 METHOD Transabdominal ultrasound examination Mcnamara . Number of fetuses: 1. DATING GA by stated dating 28 w + 0 d GONZALO by stated dating :06/07/2018 Stated dating by:First US Study Ultrasound examination on:03/15/2018 GA by U/S based upon:AC, BPD, EFW, Femur, HC GA by U/S29 w + 4 d GONZALO by U/S:05/27/2018 Method of dating:Restore dating from previous exam Assigned:Dating performed on 01/18/2018, based on the stated dating (by First US Study) Assigned GA28 w + 0 d Assigned GONZALO:06/07/2018 BIOMETRY Main Biometry: BPD 73.4 mm 29w 3d82% Hadlock OFD 98.1 mm 31w 5d >99% Michael HC 275.5 mm 30w 1d83% Hadlock AC 260.7 mm 30w 2d94% Hadlock Femur 53.7 mm 28w 3d49% Hadlock HC / AC 1.0627% Nicolaides Weight Calculation: EFW 1,419 g 29w 2d90% Hadlock EFW (lb,oz) 3 lb 2 oz EFW by Hadlock ([id number]-FL) Head / Face / Neck Biometry: Cephalic index 0.7512% Nicolaides Needle Felt Making Machine Operator 5.7 mm Extremities / Bony Struc Biometry: FL / BPD 0.73 FL / HC 0.19 FL / AC 0.21 Other Structures Biometry: AF MVP 4.1 cm TARYN 14.2 cm45% Hyatt FHR 131 bpm GENERAL EVALUATION Cardiac activity present. FHR 131 bpm. movements visualized. Presentation cephalic. Amniotic fluid MVP 4.1 cm. TARYN 14.2 cm. Q1 4.1 cm, Q2 3.4 cm, Q3 3.7 cm,Q4 3.1 cm. ANATOMY The following structures appear normal: 4-chamber view. Stomach: Fluid filled stomach identifed.. Kidneys: Kidneys appear normal bilaterally.. Bladder: Fluid filled bladder identified.. Gender: female. IMPRESSION Findings Comment Estimated weight is large for gestational age us Toshia Rajan MD ORDERABLES Final Resu lt * ECHO 2D + COLOR FLOW VELOCITY (02/16/2018 9:36 AM CDT) 02/16/2018 8:22 AM CDT Impressions INTERFACE SYSTEM - 02/17/2018 8:27 AM CDT IMPRESSION Findings Comment Unremarkable echocardiogram , The personal experience of this ultrasound laboratory with echocardiography is a 75% detection rate for cardiac malformations. Narrative INTERFACE SYSTEM - 02/17/2018 8:27 AM T [place] Echo Pat. Name: SANDRA PRESCOTT Study Date: 02/16/2018 8:22am Pat. NO: [id number] Referring MD: TOSHIA RAJAN Site: [facility] Microsoft Exchange Administrator: Art Alcaraz : 1985 Age: 32 INDICATION Other Condition At risk for gestational diabetes mellitus [Z91.89 (ICD-10-CM)]; Family history of transposition of great vessels [Z82.79 (ICD-10-CM CODING Procedures 53546: Echo 2D 40854: Echo Spectral Doppler 46941: Doppler Color Flow Mapping HISTORY OB History 3. Para 2 METHOD Transabdominal ultrasound examination. View: Suboptimal view: restricted by patient size. Adequate visualization Mcnamara . Number of fetuses: 1. DATING GA by stated dating 24 w + 1 d GONZALO by stated dating : 06/07/2018 Stated dating by: First US Study Method of dating: Restore dating from previous exam Assigned: Dating performed on 01/18/2018, based on the stated dating (by First US Study) Assigned GA 24 w + 1 d Assigned GONZALO: 06/07/2018 GENERAL EVALUATION Cardiac activity present. Presentation raz breech. Umbilical cord 3 vessel cord. Amniotic fluid The amniotic fluid is subjectively normal. ECHOCARDIOGRAM 2D Echo (Qualitatively): Situs normal, Solitus Cardiac position normal, Levocardia 4-chamber view normal, Apical and subcostal LVOT view normal RVOT view normal 6-boavic-ucbxyoc view normal, 3 vessel and 3 vessel tracheal view High short axis view normal Low short axis view normal Aortic arch view normal Ductal arch view not visualized Bicaval view normal, SVC and IVC AV connections Normal alignment VA connections Normal size and morphology Atria Normal size and morphology Atrial septum Appears normal Foramen ovale Opens into the left atrium Ventricles Normal size and morphology Ventricular septum Ventricular septum appears intact Tricuspid valve Appears normal Mitral valve Appears normal Pulmonary valve Appears normal Aortic valve Appears normal Descending aorta Appears normal Intracardial Spectral Doppler: Tricuspid Valve: normal Mitral Valve: normal E-wave 43.07 cm/s 96% Hecher A-wave 63.04 cm/s 90% Hecher E / A 0.68 75% Hecher Right Ventricular Outflow Tract / Pulmonary Valve: Vmax -90.00 cm/s Peak PG 3.24 mmHg Pulmonary Valve: normal Left Ventricular Outflow Tract / Aortic Valve: Aortic Valve: normal Color Doppler imaging was unremarkable. DOPPLER Ductus Venosus: normal. Procedure Note Jakob Galeana II, MD - 02/17/2018 [place] Echo Pat. Name:Stephan PRESCOTT Date:02/16/2018 8:22am Pat. NO: [id number] MD:TOSHIA ARJAN Site:[place] MFMSonographer:Art Alcaraz :1985Age:32 INDICATION Other Condition At risk for gestational diabetes mellitus [Z91.89 (ICD-10-CM)]; Family history of transposition of great vessels [Z82.79 (ICD-10-CM CODING Procedures 55306: Echo 2D 06244: Echo Spectral Doppler 51335: Doppler Color Flow Mapping HISTORY OB History 3. Para 2 METHOD Transabdominal ultrasound examination. View: Suboptimal view: restrictedby patient size. Adequate visualization Mcnamara . Number of fetuses: 1. DATING GA by stated dating 24 w + 1 d GONZALO by stated dating :06/07/2018 Stated dating by:First US Study Method of dating:Restore dating from previous exam Assigned:Dating performed on 01/18/2018, based on the stated dating (by First US Study) Assigned GA24 w + 1 d Assigned GONZALO:06/07/2018 GENERAL EVALUATION Cardiac activity present. Presentation raz breech. Umbilical cord 3 vessel cord. Amniotic fluid The amniotic fluid is subjectively normal. ECHOCARDIOGRAM 2D Echo (Qualitatively): Situs normal, Solitus Cardiac position normal, Levocardia 4-chamber view normal, Apical and subcostal LVOT view normal RVOT view normal 4-dcwcor-yiiyjyw view normal, 3 vessel and 3 vessel tracheal view High short axis view normal Low short axis view normal Aortic arch view normal Ductal arch view not visualized Bicaval view normal, SVC and IVC AV connections Normal alignment VA connections Normal size and morphology Atria Normal size and morphology Atrial septum Appears normal Foramen ovale Opens into the left atrium Ventricles Normal size and morphology Ventricular septum Ventricular septum appears intact Tricuspid valve Appears normal Mitral valve Appears normal Pulmonary valve Appears normal Aortic valve Appears normal Descending aorta Appears normal Intracardial Spectral Doppler: Tricuspid Valve: normal Mitral Valve: normal E-wave 43.07 cm/s96% Hecher A-wave 63.04 cm/s90% Hecher E / A 0.6875% Hecher Right Ventricular Outflow Tract / Pulmonary Valve: Vmax -90.00 cm/s Peak PG 3.24 mmHg Pulmonary Valve: normal Left Ventricular Outflow Tract / Aortic Valve: Aortic Valve: normal Color Doppler imaging was unremarkable. DOPPLER Ductus Venosus: normal. IMPRESSION Findings Comment Unremarkable echocardiogram , The personal experience of this ultrasound laboratory with echocardiography is a 75% detection rate for cardiac malformations. us Toshia Rajan MD US ORDERABLES Final Resu lt INTERFACE SYSTEM Refer to clinic/hospital department documented in this encounter Visit Diagnoses Diagnosis At risk for gestational diabetes mellitus Family history of transposition of great vessels Family history of congenital anomalies At risk for gestational diabetes mellitus Family history of transposition of great vessels Family history of congenital anomalies At risk for gestational diabetes mellitus At risk for gestational diabetes mellitus documented in this encounter Care Teams Post Splitter Relationship Specialty Start Date End Date Tamiko Christensen MD [address] [place] [address] PCP - General Family Practice 05/14/17 documented as of this encounter
--- OUTSIDE RECORDS SUMMARY | 2025-03-19 23:17 | XMS_ITS | Encounter Summary ---
Author Organization [facility] Address [address] [place] [address] Care Team Providers Care Quality Review Specialist Name Role Phone Tamiko Christensen MD Primary Care Provid er Reason for Referral * Outpatient Services (Routine) - Closed Specialty Diagnoses / Procedures Referred By Kale richardson Referred To Contact Perinatology Diagnoses At risk for gestational diabetes mellitus History of delivery, currently in second trimester Procedures OB TRANSVAGINAL Toshia Rajan MD Phone: tel: fax: [facility] [place] [address] Phone: tel: fax: Referral ID Status Reason Start Date Expiration Date Visits Requested Visits Authorized [id number] Closed Ordering Department To Schedule 01/18/2018 02/18/2019 1 1 Encounter Details Date Type Department Care Team (Late st Contact Info) Description 01/18/2018 Ancillary Orders [facility] OBGYN-[address] [place] [address] Toshia Rajan MD [address] [facility] [place] [address] [place] [address] At risk for gestational diabetes mellitus; History of delivery, currently in second trimester Social History Tobacco Use Types Packs/Day Years Used Date Smoking Tobacco: Never Smokeless Tobacco: Never Alcohol Use Standard Drinks/Week Comments No 0 (1 standard drink = 0.6 oz pur e alcohol) Comments Yes Sex and Gender Information Value Date Recorded Sex Assigned at Not on file Legal Sex Female 11:09 AM CAPONIZER Gender Identity Not on file Sexual Orientation Not on file Occupation Industry Job Start Date Job End Date Not on file Not on file Not on file Not on file documented as of this encounter Plan of Treatment Not on file documented as of this encounter Results * US OB TRANSVAGINAL (01/18/2018 12:00 PM CDT) Anatomical Region Laterality Modality Pelvis Ultrasound us Toshia Rajan MD US ORDERABLES Final Resu lt documented in this encounter Visit Diagnoses Diagnosis At risk for gestational diabetes mellitus History of delivery, currently in second trimester documented in this encounter Care Teams Quality Review Specialist Relationship Specialty Start Date End Date Tamiko [place] [address] PCP - General Family Practice 05/14/17 documented as of this encounter
--- OUTSIDE RECORDS SUMMARY | 2025-03-19 23:17 | XMS_ITS | Clinical Summary ---
[facility] Organization [facility] Address [address] [facility] Attn: Epic Prelude ADT JASON THORPE [address] Care Team Providers Care Catalytic Converter Operator Name Role Phone Kentrell Ann MD Primary Care Provider [phone] Allergies Active Allergy Reactions Criticality Noted Date Comments Aspartame Headache Low 02/22/2025 Cedarwood Unknown 03/14/2025 Cedarwood Oil Other (See Comments) 05/14/2017 Sneezing. Egg White Unknown 11/30/2023 Gluten Unknown 02/22/2025 Imipramine Rash Low 04/28/2010 Milk Anaphylaxis,Swelling High 11/30/2023 Oxybenzone-Padimate O Rash Medium 03/30/2011 Sunscreen Unknown 03/14/2025 Tramadol Anaphylaxis High 02/22/2025 Medications clobetasoL (TEMOVATE) 0.05 % Solution Active triamcinolone acetonide (KENALOG) 0.1 % Cream Active albuterol sulfate HFA 90 mcg/actuation aerosol inhaler Take 2 Puffs by inhalation every 6 hours as needed for Shortness of Breath. Active Cetirizine 10 mg CapsuleIndicati ons:Environment al allergies Take 10 mg by mouth daily. 100 Capsule 3 Active fluticasone propionate (FLONASE) 50 mcg/spray [place], Suspension nasal inhalerIndicati ons:Environment al allergies Administer 2 Sprays in each nostril 2 times daily. 16 Gram 11 024 Active vitamin A 10,000 unit capsuleIndicati ons:Vitamin A deficiency Take 1 Capsule (10,000 Units) by mouth daily. 100 Capsule 3 024 Active ketoconazole (NIZORAL) 2 % Shampoo WASH TO SCALP TWO TO THREE times PER week; set FIVE minutes before rinsing 024 Active ketoconazole (NIZORAL) 2 % Cream apply TO entire FEET topically TWICE DAILY FOR THREE weeks during flares; including between TOES 024 Active cyclobenzaprine (FLEXERIL) 5 mg Tablet Take 1 Tablet (5 mg) by mouth 1 time daily as needed for Spasm or Pain. 100 Tablet 025 Active acetaminophen-c odeine (TYLENOL #4) 300-60 mg tablet 1 tab orally Q24 prn pain (hold within 4H of planned sleep) for 28 days 025 Active naloxone (Narcan) 4 mg/spray [place], Non-Aerosol as directed intranasally once 022 Active vitamin B complex Capsule as directed Ac tive acetaminophen (TylenoL) 325 mg tablet 1-2 tabs orally every 4 hours, as needed Active hydrOXYzine HCL (ATARAX) 50 mg tablet 1 tab(s) orally 4 times a day 025 Active gabapentin (NEURONTIN) 100 mg capsule 025 Active fluticasone propionate (FLOVENT HFA) 220 mcg/actuation HFA Aerosol InhalerIndicati ons:Mild intermittent asthma, unspecified whether complicated Take 2 Puffs by inhalation every 12 hours. 12 Gram 1 025 Active traZODone (DESYREL) 50 mg tablet Take 50-100 mg by mouth daily at bedtime. 2024 Discontinued fluticasone propionate (FLOVENT HFA) 220 mcg/actuation HFA Aerosol Inhaler Take 2 Puffs by inhalation every 12 hours. 2024 Discontinued(R eorder) celecoxib (CeleBREX) 200 mg capsule 200 mg. 024 2024 Discontinued cholecalciferol , Vitamin D3, 125 mcg (5,000 unit) Capsule 1 cap orally once a day 2024 Discontinued Active Problems Problem Noted Date Diagnosed Date Influenza vaccination declined 06/14/2024 Asperger syndrome 11/30/2023 Major depressive disorder in partial remission 0 11/30/2023 History of gastric bypass 11/30/2023 Seizure-like activity 11/30/2023 Migraine with aura and witho ut status migrainosus, not intractable 11/30/2023 Family history of Graves' disease 11/30/2023 DUB (dysfunctional uterine bleeding) 11/30/2023 Limitation of activities due to disability 11/29 History of delivery 01/18/2018 DDD (degenerative disc disea se), thoracolumbar-XR L Spine 07/23/17 07/29/2017 Lymphedema of both lower extremities 05/14/2017 Chronic fatigue syndrome with fibromyalgia 05/14 Anemia 07/14/2013 PTSD (post-traumatic stress disorder) 05/22/2012 Family history of Transposition of great vessels 04/23/2011 Eczema Fibromyalgia Asthma Overview (01/17/2021): rare inhaler use Gastroesophageal reflux disease without esophagi tis Environmental allergies Resolved Problems Problem Noted Date Diagnosed Date Resolved Date Severe obesity (BMI 35.0-39. 9) with comorbidity 07/16/2018 06/14/2024 Insulin controlled gestation al diabetes mellitus (GDM) in third trimester 04/11/20182024 Chronic hypertension during 02/10/2018 11/30/2023 GDM (gestational diabetes mellitus) 01/18/2018 11/30/2023 37 weeks gestation of 12/17/2017 11/30/2023 Overview (01/17/2021): cardaic echo - wnl 11 weeks gestation of 11/18/2017 12/17/2017 Irregular periods 09/28/2017 11/30/2023 Morbid obesity with BMI of 40.0-44.9, adult 05/14/2017 11/30/2023 Sprain of ankle, left 03/01/20132016 Contraception management 03/01/2013 Screen for STD (sexually transmitted disease) 03/01/20 13 05/14/2017 Pannus, abdominal 03/01/2013 11/30/2023 Hx MRSA infection - culture negative 08/09/11 08/11/20 11 05/14/2017 Rubella non-immune status 04/17/2011 Need for rhogam due to Rh negative mother 04/17/2011 11/30/2023 Supervision of other normal 04/16/2011 01/05/2012 Panniculitis, unspecified site 12/17/2010 05/14/2017 MRSA (methicillin resistant staph aureus) culture positive 07/12/2010 08/11/2011 Irregular uterine contractions 11/30/2023 Encounters Date Type Department Care Team Description 03/17/2025 Results Follow-Up [address] [address] Rashmi Wu FNP VITAMIN A LEVEL, COMPREHENSIVE METABOLIC PANEL, CBC WITH DIFFERENTIAL, Additional followed-up results: 3 03/14/2025 1:00 PM CDT Office Visit [address] [address] Rashmi Wu FNP Hypoglycemia (Primary Dx); Missed menses; Vitamin A deficiency; Mild intermittent asthma, unspecified whether complicated 03/07/2025 External Device Data STL ABSTRACTION Provider, Abstract 03/01/2025 7:44 AM CDT - 03/01/2025 11:59 PM CDT Hospital Encounter [facility] CT Scan [place] [address] [phone] Elisa Hay FNP Discharge Disposition: Home or Self Care 03/01/2025 Orders Only [address] [phone] Elisa Hay FNP 03/01/[address] [phone] Kentrell Ann MD Patient Communication 03/01/2025 Results Follow-Up [address] [phone] ABDOMEN PELVIS W CONTRAST 02/22/2025 2:40 PM CDT Office Visit [address] [phone] Satnam Elisa Escobedo, WELDER FIRST CLASS Abdominal wall pain (Primary Dx); Irregular menses; Acute generalized abdominal pain 02/09/2025 External Device Data STL ABSTRACTION Provider, Abstract 01/23/2025 Orders Only [facility] [address] [place] [phone] Provider, Abstract 01/09/[address] [phone] Kentrell Ann MD 01/09/[address] [phone] Kentrell Ann MD Needs Orders Written 01/03/2025 External Device Data STL ABSTRACTION Provider, Abstract from Last 3 Months Immunizations Immunization Administration Dates Next Due (ADACEL/BOOSTRIX)(10 YR UP) TDAP VACCINE, 0.5ML, IM 11/26/2011 (M-M-R II/PRIORIX)(12 MO UP) MEASLES, MUMPS AND RUBELLA VIRUS VACCINE, 0.5 ML IM/SUBCUT 11/26/2011 Influenza Seasonal Unspecifi ed Formulation IM 08/05/2018,07/02/2011,08/14/2009 Rho (D) IMMUNE GLOBULIN 1,50 0 UNIT(300 MCG) INJECTION 09/11/2011 Rhogam (Rhig) Human Full Dose IM 11/25/2011 Skin Test TB 07/30/2009 Family History Medical History Relation Name Comments High Cholesterol Father Diabetes Mother Hypertension Mother Thyroid Disease Mother Graves Disea se Heart defect Sister 1 transposition o f the great vessels; lived 6h. [place]. High Cholesterol Sister 1 Unknown Sister 2 Other Son hypoglycemia Relation Name Status Comments Father Mother Sister 1 Alive Sister 2 Alive Son Social History Tobacco Use Types Packs/Day Years [...] often do you attend chur ch or orthodoxy services? 1 to 4 times per year 10/06/2024 Do you belong to any clubs o r organizations such as congregational groups, unions, fraternal or athletic groups, or [...] worry about transportation for future doctor visits, nut picker medication, etc.? Yes 2024 Housing Stability [...] on file Legal Sex Female 4:38 AM INFORMATION TECHNOLOGY SPECIALIST Gender Identity Not on file Sexual Orientation Not on file Last Filed Vital Signs Vital Sign Reading [...] Mass Index 31.26 03/14/2025 1:01 PM CDT Plan of Treatment Health Maintenance Due Date Last Done Comments HEPATITIS B VACCINES (1 of 3 - 19+ 3-dose series) 11/21/2002 PAP SMEAR 10/21/2020 10/21/2017, 10/21/2017 DTAP/TDAP/TD VACCINES (2 - Td or Tdap) 11/25/2021 11/26/2011 CERVICAL CANCER SCREENING 10/21/2022 HPV/Cotest (21-29) 10/21/2022 10/21/2017 HPV/Cotest (30-65) 10/21/2022 10/21/2017 BREAST CANCER SCREENING 2023 Preventative Visit-Managed Medicaid 11/11/2025 11/10/2024 Pre-Diabetes and Diabetes Screening 03/14/2028 03/14/2025, 06/14/2024, 07/01/2018, Additional history exists INFLUENZA VACCINE Completed 06/14/2024, , 08/05/2018, Additional history exists HPV VACCINES Aged Out No longer eligi ble based on patient's age to complete this topic Procedures Procedure Name Priority Date/Time Associated Diagnosis Comments HCG QUANTITATIVE, BLOOD Routine 03/14/2025 1:21 PM CDT Missed menses HEMOGLOBIN A1C Routine 03/14/2025 1:21 PM CDT Hypoglycemia TSH Routine 03/14/2025 1:21 PM CDT Hypoglycemia CBC WITH DIFFERENTIAL Routine 03/14/2025 1:21 PM CDT Hypoglycemia COMPREHENSIVE METABOLIC PANEL Routine 03/14/2025 1:21 PM CDT Hypoglycemia VITAMIN A LEVEL Routine 03/14/2025 1:21 PM CDT Vitamin A deficiency CT ABDOMEN PELVIS W CONTRAST Routine 03/01/2025 8:39 AM CDT Acute generalized abdominal pain Abdominal wall pain CREATININE Stat 03/01/2025 7:58 AM CDT POC , URINE Routine 02/22/2025 2:48 PM CDT Irregular menses COMPREHENSIVE METABOLIC PANEL Routine 01/20/2025 10:42 AM CDT CERV/VAG CYTO SCREEN PAP RLFX HPV Routine 10/21/2017 11:52 AM INFORMATION TECHNOLOGY SPECIALIST from Last 3 Months or Most Recently Relevant to Health Maintenance Results * VITAMIN A LEVEL (03/14/2025 1:21 PM CDT) Pathologist [facility] VITAMIN A LEVEL 45 38 - 98 mcg/dL [email or web address] Comment: (Note) Clin Chem Vol. 34.No.8. [id number]. 1998 Vitamin supplementation within 24 hours prior to blood draw may affect the accuracy of results. This test was developed and its analytical performance characteristics have been determined by [facility]. It has not been cleared or approved by the FDA. This assay has been validated pursuant to the CLIA regulations and is used for clinical purposes. [facility] [address] [place] [address],[address] [place] [address] Carlita Grant MD, PhD Test Performed at: [email or web address] [address] [place] [address], [address] [place] [address] Carlita Grant MD,PhD Blood 03/14/2025 1:21 PM CDT 03/15/2025 2:51 AM CDT us Rashmi Wu WELDER FIRST CLASS CHEMISTRY ORDERABLES Fin al Result [facility] [phone] [email or web address] [address] [place] [address], [address] [place] [address] * (ABNORMAL) CBC WITH DIFFERENTIAL (03/14/2025 1:21 PM CDT) Pathologist [facility] WBC 7.7 3.8 - 10.8 Thousand/u L [...] [facility] Comment: Test Performed at: [facility] [address] [address] Lino Rosas MD Blood 03/14/2025 1:21 PM CDT 03/15/2025 2:51 AM CDT us Rashmi Wu WELDER FIRST CLASS HEMATOLOGY ORDERABLES Fi nal Result [facility] [phone] [facility] [address] [facility] [place] [address] * HCG QUANTITATIVE, BLOOD (03/14/2025 1:21 PM CDT) HCG QUANT, BLOOD <5 mIU/mL Que [facility] Comment: Gestational Age Expected hCG values (mIU/mL) <1 Week: 5-50 1-2 Weeks: 50-500 2-3 Weeks: 100-5000 3-4 Weeks: 500-68021 4-5 Weeks: 1000-54002 5-6 Weeks: [address] 6-8 Weeks: [address] 2-3 Months: [address] The table above provides only a very [...] or approved by the FDA or the plate stacker of the assay. Test Performed at: [facility] [address] [place] [address] Lino Rosas MD Blood 03/14/2025 1:21 PM CDT 03/15/2025 2:51 AM CDT Rashmi Wu WELDER FIRST CLASS CHEMISTRY ORDERABLES Fin al Result Performing Organization Address [facility] Co de Phone Number [facility] [phone] [facility] [address] [facility] [place] [address] * TSH (03/14/2025 1:21 PM CDT) Pathologist [facility] TSH 1.03 mIU/L [facility] Comment: Reference Range > or = 20 Years 0.40-4.50 Ranges First trimester 0.26-2.66 Second trimester 0.55-2.73 Third trimester 0.43-2.91 Test Performed at: [facility] [address] [facility] [place] [address] Lino Rosas MD Blood 03/14/2025 1:21 PM CDT 03/15/2025 2:51 AM CDT Rashmi Tororiott [facility] CHEMISTRY ORDERABLES Fin al Result [facility] [phone] [facility] [address] [facility] [place] [address] * HEMOGLOBIN A1C (03/14/2025 1:21 PM CDT) HEMOGLOBIN A1C 5.2 <5.7 % [facility] Comment: For the purpose of screening for the presence of diabetes: <5.7% Consistent with the absence of diabetes 5.7-6.4% Consistent with increased risk for diabetes (prediabetes) > or =6.5% Consistent with diabetes This assay result is consistent with a decreased risk of diabetes. Currently, no consensus exists regarding use of hemoglobin A1c for diagnosis of diabetes in children. According to [place] Diabetes Association (ADA) guidelines, hemoglobin A1c <7.0% represents optimal control in non- diabetic patients. Different metrics may apply to specific patient populations. Standards of Medical Care in Diabetes(ADA). ESTIMATED AVERAGE GLUCOSE (MG/DL) 103 mg/dL [facility] ESTIMATED AVERAGE GLUCOSE (MMOL/L) 5.7 mmol/L [facility] Comment: Test Performed at: [facility] [address] [facility] [place] [address] Lino Rosas MD Blood 03/14/2025 1:21 PM CDT 03/15/2025 2:51 AM CDT Rashmi Denia Wu [facility] CHEMISTRY ORDERABLES Fin al Result [facility] [phone] [facility] [address] [facility] [place] [address] * (ABNORMAL) COMPREHENSIVE METABOLIC PANEL (03/14/2025 1:21 PM CDT) Only the most recent of2 resultswithin the time period is included. GLUCOSE 107(H) 65 - 99 mg/dL [facility] [...] [facility] Comment: Test Performed at: [facility] [address] [address] Lino Rosas MD Blood 03/14/2025 1:21 PM CDT 03/15/2025 2:51 AM CDT Rashmi Wu WELDER FIRST CLASS CHEMISTRY ORDERABLES Fin al Result [facility] [phone] [facility] [address] [place] [address] * CT ABDOMEN PELVIS W CONTRAST (03/01/2025 8:39 AM CDT) Anatomical Region Laterality Modality Abdomen Computed Tomogra phy 03/01/2025 8:28 AM CDT Impressions 03/01/2025 9:22 AM CDT IMPRESSION: Please see below. Exam: CT ABDOMEN PELVIS W CONTRAST Date/Time of Exam: 03/01/2025 8:39 AM Reason For Exam: Hernia suspected, abdominal wall. Diagnosis: Acute generalized abdominal pain; Abdominal wall pain. Technique: CT of the abdomen and pelvis was performed following the administration of intravenous contrast. Contrast: IOPAMIDOL 61 % INTRAVENOUS SOLUTION (SINGLE USE VIAL) Given:95 mL. Comparison: None. FINDINGS: Lower Chest: No significant basilar pulmonary pathology. Aorta/Vasculature: The aorta is nonaneurysmal. Lymph Nodes: There is no retroperitoneal, abdominal or pelvic lymphadenopathy. Liver: The liver is within normal limits. Gallbladder and Biliary: The gallbladder is surgically absent. There is no biliary ductal dilatation. Spleen: Small hypodense lesions in the spleen measuring up to 17 mm in size. These are indeterminant but may reflect cysts or hemangiomas. Pancreas: The pancreas is within normal limits. Adrenal Glands: The adrenal glands are within normal limits. Kidneys: The renal parenchyma is within normal limits. There is no obstructive uropathy. Stomach: Tiffanie-en-Y gastric bypass. Moderate hiatal hernia. Bowel: There is questionable mild wall thickening involving cecum, ascending colon, transverse colon and descending colon as well as the proximal sigmoid colon. The small and large bowel are not significantly distended. Appendix: No definite evidence of acute appendicitis. Peritoneum: There is no free air or abnormal free fluid. Urinary Bladder: The bladder is suboptimally distended and therefore not well evaluated. Pelvic Reproductive Structures: Dominant bilateral follicles. Subcutaneous Soft Tissues: Rectus diastases with small ventral hernia. Bones: The osseous structures appear grossly intact. No suspicious osseous lesions are identified. IMPRESSION: 1. Findings suggestive of diffuse colitis. Correlate clinically. 2. Moderate hiatal hernia. 3. Small hypodense splenic lesions are indeterminate but most likely cysts or hemangiomas. Narrative Procedure Note Kev Zaman MD - 03/01/2025 IMPRESSION: Please see below. Exam: CT ABDOMEN PELVIS W CONTRAST Date/Time of Exam: 03/01/2025 8:39 AM Reason For Exam: Hernia suspected, abdominal wall. Diagnosis: Acute generalized abdominal pain; Abdominal wall pain. Technique: CT of the abdomen and pelvis was performed following the administration of intravenous contrast. Contrast: IOPAMIDOL 61 % INTRAVENOUS SOLUTION (SINGLE USE VIAL) Given:95 mL. Comparison: None. FINDINGS: Lower Chest: No significant basilar pulmonary pathology. Aorta/Vasculature: The aorta is nonaneurysmal. Lymph Nodes: There is no retroperitoneal, abdominal or pelvic lymphadenopathy. Liver: The liver is within normal limits. Gallbladder and Biliary: The gallbladder is surgically absent. There is no biliary ductal dilatation. Spleen: Small hypodense lesions in the spleen measuring up to 17 mm in size. These are indeterminant but may reflect cysts or hemangiomas. Pancreas: The pancreas is within normal limits. Adrenal Glands: The adrenal glands are within normal limits. Kidneys: The renal parenchyma is within normal limits. There is no obstructive uropathy. Stomach: Tiffanie-en-Y gastric bypass. Moderate hiatal hernia. Bowel: There is questionable mild wall thickening involving cecum, ascending colon, transverse colon and descending colon as well as the proximal sigmoid colon. The small and large bowel are not significantly distended. Appendix: No definite evidence of acute appendicitis. Peritoneum: There is no free air or abnormal free fluid. Urinary Bladder: The bladder is suboptimally distended and therefore not well evaluated. Pelvic Reproductive Structures: Dominant bilateral follicles. Subcutaneous Soft Tissues: Rectus diastases with small ventral hernia. Bones: The osseous structures appear grossly intact. No suspicious osseous lesions are identified. IMPRESSION: 1. Findings suggestive of diffuse colitis. Correlate clinically. 2. Moderate hiatal hernia. 3. Small hypodense splenic lesions are indeterminate but most likely cysts or hemangiomas. Elisa Escobedo Satnam WELDER FIRST CLASS CT ORDERABLES Final Re sult * CREATININE (03/01/2025 7:58 AM CDT) CREATININE 0.83 0.51 - 0.95 mg/dL 03/01/2025 8:18 AM CDT [facility] GFR >60 >=60 mL/min/1.7 3 sq meter 03/01/2025 8:18 AM CDT [facility] Comment:eGFR calculated with 2020 CKD-EPI equation. Vegetarian diet, extremely high or low muscle mass, and may affect results. Cystatin C with Glomerular Filtration Rate is a suitable alternative for these patients. Blood BLOOD SPECIMEN / Unknown Collection / Unknown 03/01/2025 7:58 AM CDT 03/01/2025 8:03 AM CDT Elisa MARREROP CHEMISTRY ORDERABLES Fin al Result [facility] CLIA # [id number] [address] [place] [address] * POC , URINE (02/22/2025 2:48 PM CDT) HCG QUAL URINE POC Negative Negative, Indeterminate [facility] INTERNAL KIT QC POC Pass Pass [facility] KIT LOT NUMBER POC [id number] [facility] KIT EXP DATE POC 08/28/2026 [facility] Urine 02/22/2025 2:48 PM CDT Elisa MARREROP POINT OF CARE TESTING Fi nal Result [facility] CLIA# [id number] [address] [place] [address] * CERV/VAG CYTO SCREEN PAP RLFX HPV (10/21/2017 11:52 AM INFORMATION TECHNOLOGY SPECIALIST) CLINICAL INFORMATION SEE COMMENT 10/26/2017 4:36 PM INFORMATION TECHNOLOGY SPECIALIST [facility] Comment:Information not prov ided LAST MENSTRUAL PERIOD SEE COMMENT 10/26/2017 4:36 PM INFORMATION TECHNOLOGY SPECIALIST [facility] Comment:INFORMATION NOT PROV IDED PREV PAP: SEE COMMENT 10/26/2017 4:36 PM INFORMATION TECHNOLOGY SPECIALIST [facility] Comment:INFORMATION NOT PROV IDED PREV BX: SEE COMMENT 10/26/2017 4:36 PM INFORMATION TECHNOLOGY SPECIALIST [facility] Comment:INFORMATION NOT PROV IDED SOURCE Endocervix 10/26/2017 4:36 PM INFORMATION TECHNOLOGY SPECIALIST [facility] ADEQUACY: SEE COMMENT 10/26/2017 4:36 PM INFORMATION TECHNOLOGY SPECIALIST [facility] Comment: Satisfactory for evaluation. Endocervical/transformation zone component present. Age and/or menstrual status not provided PAP INTERP SEE COMMENT 10/26/2017 4:36 PM INFORMATION TECHNOLOGY SPECIALIST [facility] Comment:Negative for intraep ithelial lesion or malignancy. COMMENT SEE COMMENT 10/26/2017 4:36 PM INFORMATION TECHNOLOGY SPECIALIST [facility] Comment: This Pap test has been evaluated with computer assisted technology. MANAGER ADULT: SEE COMMENT 2017 4:36 PM INFORMATION TECHNOLOGY SPECIALIST [facility] Comment: BES, CT(ASCP) CT screening location: [place] [address] [place] [address] Genital SWAB OF ENDOCERVIX / Unknown Collection / Unknown 10/21/2017 11:52 AM INFORMATION TECHNOLOGY SPECIALIST 10/23/2017 8:49 AM INFORMATION TECHNOLOGY SPECIALIST Narrative [facility] - 10/26/2017 4:36 PM INFORMATION TECHNOLOGY SPECIALIST Performing Organization Information: Site ID: SL Name[facility] Address: [facility] [place] [address] Director: Lino Rosas MD Toshia Rajan MD PATHOLOGY/CYTOLOGY ORDERAB LES Final Result [facility] from Last 3 Months or Most Recently Relevant to Health Maintenance Insurance MEDICAID [place] Care Teams Catalytic Converter Operator Relationship Specialty Start Date End Date Kentrell Ann MD [address] [address] PCP - General Family Practice 11/30/23
--- OUTSIDE RECORDS SUMMARY | 2025-03-19 23:18 | XMS_ITS | Encounter Summary ---
Author Organization [facility] Address [address] [place] [address] Care Team Providers Care Cream Ripener Name Role Phone Tamiko Christensen MD Primary Care Provid er Encounter Details Date Type Department Care Team (Late st Contact Info) Description 07/01/2011 Ancillary Orders [facility] OBGYN-[address] [place] [address] Angel Tapia MD NO ADDRESS ON FILE Family history of congenital anomalies Social History Tobacco Use Types Packs/Day Years Used Date Smoking Tobacco: Never Smokeless Tobacco: Never Alcohol Use Standard Drinks/Week Comments No 0 (1 standard drink = 0.6 oz pur e alcohol) Comments Yes Sex and Gender Information Value Date Recorded Sex Assigned at Not on file Legal Sex Female 11:09 AM FASHION SUPERVISOR Gender Identity Not on file Sexual Orientation Not on file documented as of this encounter Plan of Treatment Not on file documented as of this encounter Visit Diagnoses Diagnosis Family history of congenital anomalies documented in this encounter Additional Health Concerns Infection Onset Date Last Indicated Resolved Time MRSA Comment:RESOLVED 07/15/2010 07/15/2010 08/11/2011 12:23 PM FASHION SUPERVISOR documented as of this encounter Care Teams Cream Ripener Relationship Specialty Start Date End Date Tamiko Christensen MD [address] [place] [phone] PCP - General Family Practice 05/14/17 documented as of this encounter
--- OUTSIDE RECORDS SUMMARY | 2025-03-19 23:18 | XMS_ITS | Clinical Summary ---
Author Organization [facility] Address [address] [place] [address] Phone Care Team Providers Care Surgical Consultant Name Role Phone Tamiko Christensen MD Primary Care Provid er Allergies Active Allergy Reactions Criticality Noted Date Comments Cedarwood Oil Other (See Comments) 05/14/2017 Sneezing. Imipramine Rash Low 04/28/2010 Oxybenzone-Padimate O Rash Medium 03/30/2011 Medications [id number] 28 mg iron- 1 mg-400 mg Capsule Take 1 Tablet by mouth daily. 30 Capsule 8 Active ibuprofen (MOTRIN) 800 mg tablet Take 1 Tablet (800 mg) by mouth every 8 hours as needed for Pain, Mild. 30 Tablet 8 Active gabapentin (NEURONTIN) 300 mg capsuleIndication s:Chronic fatigue syndrome with fibromyalgia Take 1 Capsule (300 mg) by mouth 3 times daily May cause dizziness. 90 Capsule 1 8 Active Active Problems Problem Noted Date Diagnosed Date Obesity (BMI 30-39.9) 07/16/2018 Insulin controlled gestation al diabetes mellitus (GDM) in third trimester 04/11/2018 Chronic hypertension during 02/10/2018 GDM (gestational diabetes mellitus) 01/18/2018 History of delivery 01/18/2018 37 weeks gestation of 12/17/2017 Overview (03/07/2018): cardaic echo - wnl Irregular periods 09/28/2017 DDD (degenerative disc disea se), thoracolumbar-XR L Spine 07/23/17 07/29/2017 Morbid obesity with BMI of 40.0-44.9, adult 04/22 Lymphedema of both lower extremities 05/14/2017 Chronic fatigue syndrome with fibromyalgia 05/14 Anemia 07/14/2013 Pannus, abdominal 03/01/2013 PTSD (post-traumatic stress disorder) 05/22/2012 Family history of Transposition of great vessels 04/23/2011 Need for rhogam due to Rh negative mother 2010 Fibromyalgia Eczema GERD (gastroesophageal reflux disease) Asthma Overview (11/03/2017): rare inhaler use Environmental allergies Irregular uterine contractions Resolved Problems Problem Noted Date Diagnosed Date Resolved Date 11 weeks gestation of 11/18/2017 12/17/2017 Screen for STD (sexually transmitted disease) 03/01/20 13 05/14/2017 Sprain of ankle, left 03/01/20132016 Contraception management 03/01/2013 Hx MRSA infection - culture negative 08/09/11 08/11/20 11 05/14/2017 Rubella non-immune status 04/17/2011 Supervision of other normal 04/16/2011 01/05/2012 Panniculitis, unspecified site 12/17/2010 05/14/2017 MRSA (methicillin resistant staph aureus) culture positive 07/12/2010 08/11/2011 Immunizations Immunization Administration Dates Next Due (ADACEL/BOOSTRIX)(10 YR UP) TDAP VACCINE, 0.5ML, IM 11/26/2011 (M-M-R II/PRIORIX)(12 MO UP) MEASLES, MUMPS AND RUBELLA VIRUS VACCINE, 0.5 ML IM/SUBCUT 11/26/2011 Influenza Seasonal Unspecified Formulation IM ,07/02/2011 Rho (D) IMMUNE GLOBULIN 1,500 UNIT(300 MCG) INJE CTION 09/11/2011 Rhogam (Rhig) Human Full Dose IM 11/25/2011 Family History Medical History Relation Name Comments High Cholesterol Father Diabetes Mother Hypertension Mother Thyroid Disease Mother Graves Disea se Heart defect Sister 1 transposition o f the great vessels; lived 6h. born in [place], [place]. High Cholesterol Sister 1 Unknown Sister 2 Other Son hypoglycemia Relation Name Status Comments Father Mother Sister 1 Alive Sister 2 Alive Son Social History Tobacco Use Types Packs/Day Years Used Date Smoking Tobacco: Never Smokeless Tobacco: Never Alcohol Use Standard Drinks/Week Comments No 0 (1 standard drink = 0.6 oz pur e alcohol) Comments No Sex and Gender Information Value Date Recorded Sex Assigned at Not on file Legal Sex Female 11:09 AM WOOD GANG SAWYER Gender Identity Not on file Sexual Orientation Not on file Occupation Industry Job Start Date Job End Date Not on file Not on file Not on file Not on file Last Filed Vital Signs Vital Sign Reading Time Taken Comments Blood Pressure 124/88 07/16/2018 10:17 AM CDT Pulse 100 07/16/2018 10:17 AM CDT Temperature 36.5 C (97.7 F) 07/16/2018 10:17 AM CDT Respiratory Rate 16 05/22/2018 9:10 PM CDT Oxygen Saturation 97% 07/16/2018 10:17 AM CDT Inhaled Oxygen Concentration - - Weight 103 kg (227 lb) 07/16/2018 10:17 AM CDT Height 162.6 cm (5' 4 ) 07/16/2018 10:17 AM CDT Body Mass Index 38.96 07/16/2018 10:17 AM CDT Plan of Treatment Health Maintenance Due Date Last Done Comments HEPATITIS B VACCINES (1 of 3 - 19+ 3-dose series) 11/21/2002 PAP SMEAR 10/21/2020 10/21/2017, 11/0 09/2015, 03/01/2013, Additional history exists Pre-Diabetes and Diabetes Screening 07/01/2021 07/01/2018, 01/18/2018, 12/24/2017, Additional history exists DTAP/TDAP/TD VACCINES (2 - Td or Tdap) 11/25/2021 11/26/2011 CERVICAL CANCER SCREENING 10/21/2022 HPV/Cotest (21-29) 10/21/2022 10/21/2017, 0 03/01/2013, 01/05/2012, Additional history exists HPV/Cotest (30-65) 10/21/2022 10/21/2017, 0 03/01/2013, 01/05/2012, Additional history exists BREAST CANCER SCREENING 2023 INFLUENZA VACCINE (#1) 2024 08/05/2018, 2010 Preventative Visit-Managed Medicaid 11/11/2025 11/10/2024, 02/28/2011 HPV VACCINES Aged Out No longer eligi ble based on patient's age to complete this topic Procedures Procedure Name Priority Date/Time Associated Diagnosis Comments GLUCOSE FASTING Routine 07/01/2018 10:38 AM CDT Gestational diabetes mellitus (GDM), antepartum, gestational diabetes method of control unspecified Routine follow-up CERV/VAG CYTO SCREEN PAP RLFX HPV Routine 10/21/2017 11:52 AM WOOD GANG SAWYER Encounter for screening of mother from Last 3 Months or Most Recently Relevant to Health Maintenance Results * GLUCOSE FASTING (07/01/2018 10:38 AM CDT) GLUCOSE-FASTIN G 91 74 - 99 mg/dL 07/01/2018 11:57 AM CDT [facility] Blood Venipuncture / Unknown 07/01/2018 10:38 AM CDT 07/01/2018 10:38 AM CDT Jakob Galeana II, MD CHEMISTRY ORDERABLES Fatuma murphy Result [facility] CLIA# [id number] [address] [place] [address] * CERV/VAG CYTOPATH, THIN PREP IMAGR RFLX HPV (10/21/2017 11:52 AM WOOD GANG SAWYER) CLINICAL INFORMATION SEE COMMENT 10/26/2017 4:36 PM WOOD GANG SAWYER [facility] Comment:Information not prov ided LAST MENSTRUAL PERIOD SEE COMMENT 10/26/2017 4:36 PM WOOD GANG SAWYER [facility] Comment:INFORMATION NOT PROV IDED PREV PAP: SEE COMMENT 10/26/2017 4:36 PM WOOD GANG SAWYER [facility] Comment:INFORMATION NOT PROV IDED PREV BX: SEE COMMENT 10/26/2017 4:36 PM WOOD GANG SAWYER [facility] Comment:INFORMATION NOT PROV IDED SOURCE Endocervix 10/26/2017 4:36 PM WOOD GANG SAWYER [facility] ADEQUACY: SEE COMMENT 10/26/2017 4:36 PM WOOD GANG SAWYER [facility] Comment: Satisfactory for evaluation. Endocervical/transformation zone component present. Age and/or menstrual status not provided PAP INTERP SEE COMMENT 10/26/2017 4:36 PM WOOD GANG SAWYER [facility] Comment:Negative for intraep ithelial lesion or malignancy. COMMENT SEE COMMENT 10/26/2017 4:36 PM WOOD GANG SAWYER [facility] Comment: This Pap test has been evaluated with computer assisted technology. TOURIST CAMP ATTENDANT: SEE COMMENT 2017 4:36 PM WOOD GANG SAWYER [facility] Comment: BES, CT(ASCP) CT screening location: [place] [address] Administration J[place] Jain [id number] Genital SWAB OF ENDOCERVIX / Unknown Collection / Unknown 10/21/2017 11:52 AM WOOD GANG SAWYER 10/22/2017 7:47 AM WOOD GANG SAWYER Narrative [facility] - 10/26/2017 4:36 PM WOOD GANG SAWYER Performing Organization Information: Site ID: Name[facility] Address: Critical [facility] hospital Administration [place] [address] Director: Lino Rosas MD Toshia Rajan MD PATHOLOGY/CYTOLOGY ORDERAB LES Final Result Performing Organization Address City/State/[facility] Co de Phone Number [facility] from Last 3 Months or Most Recently Relevant to Health Maintenance Insurance [employer] [facility] [place] Advance Directives For more information, please contact: [phone] * Full Code (Latest Code Status on File) Date Activated Date Inactivated Comments 05/21/2018 1:36 PM 05/23/2018 6:10 PM * Full Code Date Activated Date Inactivated Comments 05/21/2018 1:44 AM 05/21/2018 1:36 PM * Full Code Date Activated Date Inactivated Comments 04/23/2018 7:57 AM 04/23/2018 12:09 PM * Full Code Date Activated Date Inactivated Comments 03/09/2018 12:23 AM 03/09/2018 2:47 AM * Full Code Date Activated Date Inactivated Comments 06/06/2013 11:38 AM 06/07/2013 4:40 PM Care Teams Surgical Consultant Relationship Specialty Start Date End Date Tamiko Christensen MD [address] [place] [phone] PCP - General Family Practice 05/14/17
--- OUTSIDE RECORDS SUMMARY | 2025-03-19 23:18 | XMS_ITS | Patient Health Record ---
Author Organization [facility] Address [address] [place], [place] [id number] Care Team Providers Care Recovery Coordinator Name Role Phone Kentrell Ann MD Primary Care Provider Unavailivone Boo MD, Tavon Unavailable [phone] Xena Horton DO Unavailable Unavailable Allergies Allergen (clinical drug ingredient) Drug/Non Drug Allergy documented on EMR Reaction Allergy Type Onset Date Status Aspartame aspartame (uncoded) headache Allergy Active cedar (uncoded) Unknown Allergy Acti ve dairy (uncoded) Unknown Allergy Acti ve egg whites (uncoded) Unknown Allergy Active Gluten gluten (uncoded) Unknown Allergy Act gary sun block (uncoded) Unknown Allergy Active imipramine imipramine rash Drug Allergy Activ e tramadol traMADol history of seizure-like activity Drug Allergy Active Results Component Value Reference Range Notes Urine tox screen / MS if ind icated Reviewed date:08/01/2024 07:49:17 AM Interpretation:Consistent Performing Lab: Notes/Report: Consistent Urine tox screen / MS if ind icated Reviewed date:11/21/2024 09:26:11 AM Interpretation:Consistent Performing Lab: Notes/Report: Consistent Urine tox screen / MS if ind icated Reviewed date:11/21/2024 09:26:11 AM Interpretation:Consistent Performing Lab: Notes/Report: Consistent Lab42ium Results Reviewed date:11/21/2024 09:25:45 AM Interpretation: Performing Lab:[id number] [facility], [address] [address] [facility] [address] Renata Damico MD Notes/Report: ab Director: Renata Damico MD, CLIA ID# [id number] [facility], [address] [address], [facility], [place] [address], , L OPIATES SCREEN negative 300 ng/mL Codeine Quantification negative 50 ng/mL Morphine Quantification negative 50 ng/mL Hydrocodone Quantification negative 50 ng/mL Norhydrocodone Quantification negative 50 ng/mL Hydromorphone Quantification negative 50 ng/mL OXYCODONE SCREEN negative 100 ng/mL Oxycodone Quantification negative 50 ng/mL Noroxycodone Quantification negative 50 ng/mL Oxymorphone Quantification negative 50 ng/mL BUPRENORPHINE SCREEN negative 10 ng/mL Buprenorphine Quantification negative 5 ng/mL Norbuprenorphine Quantification negative 20 ng/mL FENTANYL SCREEN negative 2 ng/mL Fentanyl Quantification negative 1 ng/mL Norfentanyl Quantification negative 8 ng/mL METHADONE SCREEN negative 300 ng/mL Methadone Quantification negative 100 ng/mL EDDP (Methadone metabolite) Quantification negative 100 ng/mL TRAMADOL SCREEN positive 200 ng/mL Tramadol Quantification positive-470.442 100 ng/mL B-nyjdbwbiv-vhlwpimx Quantification positive-7635.698 100 ng/mL L-Tfczucaqi-Qoeccdst Quantification negative 100 n g/mL Tapentadol Quantification negative 50 ng/mL BENZODIAZEPINES SCREEN negative 200 ng/mL Alpha-Hydroxyalprazolam Quantification negative 20 ng/mL 2-Dpaim-Mghxijutvw Quantification negative 20 ng/m L Lorazepam Quantification negative 40 ng/mL Nordiazepam Quantification negative 40 ng/mL Temazepam Quantification negative 50 ng/mL Oxazepam Quantification negative 40 ng/mL AMPHETAMINES SCREEN negative 500 ng/mL Amphetamine Quantification negative 100 ng/mL Gabapentin Quantification negative 1000 ng/mL Pregabalin Quantification negative 400 ng/mL Naltrexone Quantification negative 10 ng/mL Naltrexol Quantification negative 10 ng/mL Carisoprodol Quantification negative 100 ng/mL Meprobamate Quantification negative 100 ng/mL BARBITURATES SCREEN negative 200 ng/mL Pentobarbital Quantification negative 200 ng/mL Phenobarbital Quantification negative 200 ng/mL Secobarbital Quantification negative 200 ng/mL Butalbital Quantification negative 200 ng/mL Methamphetamine Quantification negative 100 ng/mL COCAINE METABOLITE SCREEN negative 150 ng/mL Cocaine metabolite Quantification negative 50 ng/m L CANNABINOIDS (cTHC) SCREEN negative 50 ng/mL cTHC (Marijuana metabolite) Quantification negative 15 ng/mL MDMA SCREEN negative 500 ng/mL MDMA Quantification negative 100 ng/mL HEROIN METABOLITE SCREEN negative 10 ng/mL 6-ADWOA (Heroin metabolite) Quantification negative 10 ng/mL PHENCYCLIDINE SCREEN negative 25 ng/mL Phencyclidine Quantification negative 10 ng/mL Acetyl fentanyl Quantification Fen Neg 2 ng/mL Acetyl norfentanyl Quantification Fen Neg 5 ng/mL Acryl fentanyl Quantification Fen Neg 1 ng/mL Carfentanil Quantification Fen Neg 2 ng/mL Para-fluorofentanyl Quantification Fen Neg 1 ng/m L 2-methyl AP-237 Quantification negative 10 ng/mL Brorphine Quantification negative 15 ng/mL Metonitazene Quantification negative 5 ng/mL 8-aminoclonazolam Quantification negative 10 ng/mL Etizolam Quantification negative 10 ng/mL Alpha-hydroxyetizolam Quantification negative 10 n g/mL Flualprazolam Quantification negative 10 ng/mL Flubromazolam Quantification negative 10 ng/mL WZN943 metabolite Quantification negative 10 ng/mL VNJ685 metabolite Quantification negative 10 ng/mL RCS4 metabolite Quantification negative 10 ng/mL XLR11/UR144 metabolite negative 10 ng/mL 5F-ADB-M7 negative 10 ng/mL XE-SFTZGUOT-X2 negative 10 ng/mL DQMY-DKKBYTRU-B2 negative 10 ng/mL Eutylone Quantification negative 10 ng/mL Methylone Quantification negative 3 ng/mL Xylazine Quantification negative 10 ng/mL 4-hydroxy Xylazine Quantification negative 10 ng/m L Mitragynine (Kratom alkaloid) Quantification negative 1 ng/mL 7-UG-Rcczwxunuoe (Kratom alk aloid) Quantification negative 1 ng/mL CREATININE normal-120.0 >20 mg/dL mg/dL OXIDANT normal-0 <200 ug/mL ug/mL PH normal-7.5 4.5 - 9.5 SPECIFIC GRAVITY normal-1.016 1.003 - 1.035 Embedded PDF Reviewed date:11/21/2024 09:25:53 AM Interpretation: Performing Lab: Notes/Report: Para-fluorofentanyl: Fentanyl Negative. Acetyl fentanyl: Fentanyl Negative. Apolinar tyl norfentanyl: Fentanyl Negative. Acryl fentanyl: Fentanyl Negative. Carfentan il: Fentanyl Negative. [facility], [address], [place] [address], , L ab Director: Renata Damico MD, CLIA ID# [id number] Embedded PDF Reviewed date:08/01/2024 07:48:57 AM Interpretation: Performing Lab: Notes/Report: ab Director: Renata Damico MD, CLIA ID# [id number] [facility], [address], [facility], [place] [address], , L [facility] Results Reviewed date:08/01/2024 07:48:48 AM Interpretation: Performing Lab:[id number] [facility], [address] [facility] [address] Renata Damico MD Notes/Report: [facility], [address], [facility] [address], [place] [address], , L ab Director: Renata Damico MD, CLIA ID# [id number] OPIATES SCREEN negative 300 ng/mL OXYCODONE SCREEN negative 100 ng/mL Oxymorphone Quantification negative 50 ng/mL BUPRENORPHINE SCREEN negative 10 ng/mL FENTANYL SCREEN negative 2 ng/mL METHADONE SCREEN negative 300 ng/mL TRAMADOL SCREEN negative 200 ng/mL Tramadol Quantification negative 100 ng/mL I-ahzcnwmju-syrgmgtl Quantification negative 100 n g/mL C-Eohzbkxxb-Epadzgdo Quantification negative 100 n g/mL Tapentadol Quantification negative 50 ng/mL BENZODIAZEPINES SCREEN negative 200 ng/mL AMPHETAMINES SCREEN negative 500 ng/mL Gabapentin Quantification negative 1000 ng/mL Pregabalin Quantification negative 400 ng/mL Naltrexone Quantification negative 10 ng/mL Naltrexol Quantification negative 10 ng/mL Carisoprodol Quantification negative 100 ng/mL Meprobamate Quantification negative 100 ng/mL BARBITURATES SCREEN negative 200 ng/mL COCAINE METABOLITE SCREEN negative 150 ng/mL CANNABINOIDS (cTHC) SCREEN negative 50 ng/mL MDMA SCREEN negative 500 ng/mL HEROIN METABOLITE SCREEN negative 10 ng/mL PHENCYCLIDINE SCREEN negative 25 ng/mL 2-methyl AP-237 Quantification negative 10 ng/mL Brorphine Quantification negative 15 ng/mL Metonitazene Quantification negative 5 ng/mL 8-aminoclonazolam Quantification negative 10 ng/mL Etizolam Quantification negative 10 ng/mL Alpha-hydroxyetizolam Quantification negative 10 n g/mL Flualprazolam Quantification negative 10 ng/mL Flubromazolam Quantification negative 10 ng/mL YFD095 metabolite Quantification negative 10 ng/mL DCX944 metabolite Quantification negative 10 ng/mL RCS4 metabolite Quantification negative 10 ng/mL XLR11/UR144 metabolite negative 10 ng/mL 5F-ADB-M7 negative 10 ng/mL OF-DMAEOSUA-C7 negative 10 ng/mL FFEF-SHXAYVLD-D9 negative 10 ng/mL Eutylone Quantification negative 10 ng/mL Methylone Quantification negative 3 ng/mL Xylazine Quantification negative 10 ng/mL 4-hydroxy Xylazine Quantification negative 10 ng/m L Mitragynine (Kratom alkaloid) Quantification negative 1 ng/mL 6-YX-Rjkfucemnwe (Kratom alk aloid) Quantification negative 1 ng/mL CREATININE normal-308.1 >20 mg/dL mg/dL OXIDANT normal-0 <200 ug/mL ug/mL PH normal-5.7 4.5 - 9.5 SPECIFIC GRAVITY normal-1.028 1.003 - 1.035 Reason For Referral Reason Evaluation for possi ble treatment (clinic closing due to provider's residential) Diagnosis 1 Vertebrogenic low ba ck pain (M54.51) Diagnosis 2 Spondylosis without myelopathy or radiculopathy, lumbar region (M47.816) Diagnosis 3 Spinal stenosis, lum bar region with neurogenic claudication (M48.062) Referral Organization [facility] Referring Provider First Name Tavon Referring Provider Last Name Rajeev Referring Provider Speciality Pain Manag ement Referred Provider Ken Nails Referred Provider Specialty Pain Managem ent General Notes Yue Zuniga 08/2025 12:55:51 PM >FAXED TODAY. Referral Priority Routine Referral Appointment Date 02/28/2025 Medications Medication SIG (Take, Route, Frequency, Duration) Notes Start Date End Date Status Tylenol 325 mg 1-2 tabs orally ever y 4 hours, as needed Active Narcan 4 mg/0.1 mL as directed intranasally once 05/01/2022 Active M-Leonardo Plus Multivitamins with Folic Acid 1 mg 1 tab orally once a day Active dicyclomine 20 mg 1 tab(s) orally 2 times a day Active cetirizine 10 mg 1 tab orally once a day Active hydrOXYzine hydrochloride 50 mg 1 tab(s) orally 4 times a day 01/05/2025 Active acetaminophen-codeine 300 mg-60 mg 1 tab orally Q24 prn pain (hold within 4H of planned sleep) for 28 days ICD-10: G89.29 01/05/2025 Active cyclobenzaprine 5 mg 1 tab orally Q24H p rn spasm for 28 days Active Vitamin D3 125 mcg 1 cap orally once a day Active Vitamin C with Nasrin Hips 1000 mg 1 tab orally once a day Active Vitamin B Complex as directed Active Social History Tobacco Use: Social History Observation Description Date Details (start date - stop date) Never Smoker NA - NA Tobacco use: Question Answer Notes : nonsmoker AUDIT-C (Standard) Question Answer Notes Did you have a drink containing alcohol in the p ast year? No Points 0 Interpretation Negative Problems Problem Type SNOMED Code ICD Code Onset Dates Problem Status W/U Status Risk Notes Problem Solitary sacroiliitis (313689866) Sacroiliitis, not elsewhere classified (M46.1) Active confirmed Problem Lumbosacral spondylosis without myelopathy (74548299) Spondylosis without myelopathy or radiculopathy, lumbar region (M47.816) Active confirmed partial sacralization of L5 with left L5-S1 transverse process pseudo articulation as per CT scan report (indicating possible transitional L5 vertebra: transitional anatomy noted via subsequent fluoroscopy) Problem High risk drug monitoring status (563466500) 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) Active confirmed Problem Anxiety disorder (508221994) Other specified anxiety disorders (F41.8) Active confirmed Problem Hypersomnia (28102988) Hypersomnia, unspecified (G47.10) Active confirmed Problem Obstructive sleep apnea syndrome (60945220) Obstructive sleep apnea (adult) (pediatric) (G47.33) Active confirmed Problem Chronic pain (39377884) Other chronic pain (G89.29) Active confirmed Problem Cervicalgia (35057547) Cervicalgia (M54.2) Active confirmed Problem Pain in thoracic spine (228135580) Pain in thoracic spine (M54.6) Active confirmed Problem Backache (579960011) Dorsalgia, unspecified (M54.9) Active confirmed Problem Fibromyalgia (709006220) Fibromyalgia (M79.7) Active confirmed Problem Long-term current use of drug therapy (817390122) Other buttermaker 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) drug therapy (Z79.899) Active confirmed Problem Neurogenic claudication (047111346) Spinal stenosis, lumbar region with neurogenic claudication (M48.062) Active confirmed Problem Myalgia (72766661) Myalgia of auxiliary muscles, head and neck (M79.12) Active confirmed Problem Muscle pain (78108796) Myalgia, other site (M79.18) Active confirmed Problem Headache (60354380) Headache, unspecified (R51.9) Active confirmed Problem Pain in lumbar spine (677535417) Vertebrogenic low back pain (M54.51) Active confirmed Vital Signs Temperature 97.8 degrees Fahrenheit 01/05/2025 Blood pressure diastolic 81 mm Hg 01/05/2025 Oximetry 100 % 01/05/2025 Height 64 in 01/05/2025 Blood pressure systolic 115 mm Hg 01/05/2025 Weight 170.2 lbs 01/05/2025 BMI 29.21 kg/m2 01/05/2025 Encounters Encounter Location Date Provider Diagnosis [facility] [place] [address] [place], [place] [id number] 05/17/2024 Tavon Boo Myalgia of auxiliary muscles, head and neck M79.12 ; Headache, unspecified R51.9 ; Sacroiliitis, not elsewhere classified M46.1 ; Spondylosis without myelopathy or radiculopathy, lumbar region M47.816 ; Other chronic pain G89.29 ; Myalgia, other site M79.18 ; Vertebrogenic low back pain M54.51 and Obstructive sleep apnea (adult) (pediatric) G47.33 [facility] [address] [place], [place] [id number] 05/31/2024 Tavon Boo Procedure and treatment not carried out because of patient's decision for unspecified reasons Z53.20 [facility] [place] [address] [place], [place] [id number] 07/27/2024 Tavon Boo Myalgia of auxiliary muscles, head and neck M79.12 ; Headache, unspecified R51.9 ; Sacroiliitis, not elsewhere classified M46.1 ; Spondylosis without myelopathy or radiculopathy, lumbar region M47.816 ; Other chronic pain G89.29 ; Myalgia, other site M79.18 ; Vertebrogenic low back pain M54.51 ; Obstructive sleep apnea (adult) (pediatric) G47.33 and skilled nursing (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 analgesic Z79.891 [facility] [address] [place], [place] [phone] 08/10/2024 Tavon Boo Myalgia of auxiliary muscles, head and neck M79.12 ; Headache, unspecified R51.9 ; Sacroiliitis, not elsewhere classified M46.1 ; Spondylosis without myelopathy or radiculopathy, lumbar region M47.816 ; Other chronic pain G89.29 ; Myalgia, other site M79.18 ; Vertebrogenic low back pain M54.51 and Obstructive sleep apnea (adult) (pediatric) G47.33 [facility] [place] [address] [place], [place] [id number] 08/24/2024 Tavon Boo Myalgia of auxiliary muscles, head and neck M79.12 ; Headache, unspecified R51.9 ; Sacroiliitis, not elsewhere classified M46.1 ; Spondylosis without myelopathy or radiculopathy, lumbar region M47.816 ; Other chronic pain G89.29 ; Myalgia, other site M79.18 ; Vertebrogenic low back pain M54.51 and Obstructive sleep apnea (adult) (pediatric) G47.33 [facility] [address] [place], [place] [id number] 10/05/2024 Tavon Boo Myalgia of auxiliary muscles, head and neck M79.12 ; Headache, unspecified R51.9 ; Sacroiliitis, not elsewhere classified M46.1 ; Spondylosis without myelopathy or radiculopathy, lumbar region M47.816 ; Other chronic pain G89.29 ; Myalgia, other site M79.18 ; Vertebrogenic low back pain M54.51 and Obstructive sleep apnea (adult) (pediatric) G47.33 [facility], [facility] [address] [place], [place] [id number] 11/16/2024 Tavon Boo Other chronic pain G89.29 ; Vertebrogenic low back pain M54.51 ; Myalgia of auxiliary muscles, head and neck M79.12 ; Headache, unspecified R51.9 ; Sacroiliitis, not elsewhere classified M46.1 ; Spondylosis without myelopathy or radiculopathy, lumbar region M47.816 ; Myalgia, other site M79.18 ; Obstructive sleep apnea (adult) (pediatric) G47.33 and buttermaker 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 analgesic Z79.891 [facility], [facility] [address] [place], [place] [id number] 11/23/2024 Tavon Boo Spondylosis without myelopathy or radiculopathy, lumbar region M47.816 ; Other specified anxiety disorders F41.8 ; Myalgia of auxiliary muscles, head and neck M79.12 ; Headache, unspecified R51.9 ; Other chronic pain G89.29 ; Myalgia, other site M79.18 ; Vertebrogenic low back pain M54.51 ; Sacroiliitis, not elsewhere classified M46.1 and Obstructive sleep apnea (adult) (pediatric) G47.33 [facility] [address] [place] [phone] 12/05/2024 Tavon Boo Spondylosis without myelopathy or radiculopathy, lumbar region M47.816 and Other specified anxiety disorders F41.8 [facility], [facility] [address] [place] [id number] 01/05/2025 Tavon Boo Other chronic pain G89.29 ; Vertebrogenic low back pain M54.51 ; Myalgia, other site M79.18 and Obstructive sleep apnea (adult) (pediatric) G47.33 [facility], [facility] [address] [place] [id number] 03/28/2024 Tavon Boo [facility], [facility] [address] [place] [id number] 07/13/2024 Tavon Boo [facility], [facility] [address] [place] [id number] 11/17/2024 Tavon Boo [facility], [facility] [address] [place] [id number] 12/19/2024 Tavon Boo [facility], [facility] [address] [place] [phone] 01/26/2025 Tavon Boo Assessments Encounter Date Diagnosis (ICD Code) Assessment Notes Treatment Notes Treatment Clinical Notes Section Notes 05/17/2024 Myalgia of auxiliary muscles, head and neck (ICD-10 - M79.12) TPI sessions with history of benefits that have been appreciated by patient. The benefits have included myalgia relief and headache relief. Plan TPIs at today's visit. 05/17/2024 Headache, unspecified (ICD-10 - R51.9) Headache benefit has been appreciated by patient post TPIs targeting upper cervical region. 07/27/2024 Myalgia of auxiliary muscles, head and neck (ICD-10 - M79.12) TPI sessions with history of benefits that have been appreciated by patient. The benefits have included myalgia relief and headache relief. Plan TPIs at today's visit. 01/05/2025 Vertebrogenic low back pain (ICD-10 - M54.51) Chronic axial lumbosacral spine pain. 12/05/2024 Spondylosis without myelopathy or radiculopathy, lumbar region (ICD-10 - M47.816) Plan bilateral lumbar RFA of L3, L4 medial branch and L5 dorsal ramus. 01/05/2025 Other chronic pain (ICD-10 - G89.29) Patient reports that taking her pain medication allows her to continue packing to move. Plan to continue oral opioid medication. 11/23/2024 Spondylosis without myelopathy or radiculopathy, lumbar region (ICD-10 - M47.816) partial sacralization of L5 with left L5-S1 transverse process pseudo articulation as per CT scan report (indicating possible transitional L5 vertebra: transitional anatomy noted via subsequent fluoroscopy) Prior lumbar RFA procedures with history of efficacy appreciated by patient. Most recent lumbar RFA procedure just over a year ago with maintained good benefit for one year before waning of benefits noted by patient (see below). Plan repeat bilateral L3 medial branch, bilateral L4 medial branch, bilateral L5 dorsal ramus RFA. Risks, benefits, and alternatives reviewed with patient. Questions answered to the patient's reported satisfaction. Preparation for procedure reviewed with patient; printed instructions declined. 11/23/2024 Other specified anxiety disorders (ICD-10 - F41.8) Plan monitored anesthesia care. 11/16/2024 Other chronic pain (ICD-10 - G89.29) Patient reports that she miscarried her on 10/08/24 and has resumed use of her tramadol. Plan to continue oral opioid medication management. 11/16/2024 Vertebrogenic low back pain (ICD-10 - M54.51) Chronic axial lumbosacral spine pain. 08/24/2024 Myalgia of auxiliary muscles, head and neck (ICD-10 - M79.12) TPI sessions with history of benefits that have been appreciated by patient. The benefits have included myalgia relief and headache relief. Plan TPIs at today's visit. 08/10/2024 Myalgia of auxiliary muscles, head and neck (ICD-10 - M79.12) TPI sessions with history of benefits that have been appreciated by patient. The benefits have included myalgia relief and headache relief. Plan TPIs at today's visit. 08/10/2024 Headache, unspecified (ICD-10 - R51.9) Headache benefit has been appreciated by patient post TPIs targeting upper cervical region. 05/31/2024 Procedure and treatment not carried out because of patient's decision for unspecified reasons (ICD-10 - Z53.20) 10/05/2024 Myalgia of auxiliary muscles, head and neck (ICD-10 - M79.12) TPI sessions with history of benefits that have been appreciated by patient. The benefits have included myalgia relief and headache relief. Plan TPIs at today's visit. 10/05/2024 Headache, unspecified (ICD-10 - R51.9) Headache benefit has been appreciated by patient post TPIs targeting upper cervical region. 08/24/2024 Headache, unspecified (ICD-10 - R51.9) Headache benefit has been appreciated by patient post TPIs targeting upper cervical region. 08/10/2024 Sacroiliitis, not elsewhere classified (ICD-10 - M46.1) Previous bilateral sacral denervation procedure via RFA completed with maintained efficacy appreciated by patient for 7 months; repeat procedure completed with maintained good benefit as of 08/10/24. 11/16/2024 Myalgia of auxiliary muscles, head and neck (ICD-10 - M79.12) TPI sessions with history of benefits that have been appreciated by patient. The benefits have included myalgia relief and headache relief. 01/05/2025 Myalgia, other site (ICD-10 - M79.18) Patient reports benefit with use of Flexeril for her spasms. Plan to continue. 12/05/2024 Other specified anxiety disorders (ICD-10 - F41.8) Plan monitored anesthesia care. 11/23/2024 Myalgia of auxiliary muscles, head and neck (ICD-10 - M79.12) TPI sessions with history of benefits that have been appreciated by patient. The benefits have included myalgia relief, improved ROM, and headache relief. Printed order for TENS unit given to patient to fill at the facility of her choice (per patient request). Patient reports prior history of good benefit from TENS unit therapy but she no longer has the device. Recent borrowed device with benefit noted by patient. Plan TPIs at today's visit. 07/27/2024 Headache, unspecified (ICD-10 - R51.9) Headache benefit has been appreciated by patient post TPIs targeting upper cervical region. 05/17/2024 Sacroiliitis, not elsewhere classified (ICD-10 - M46.1) Previous bilateral sacral denervation procedure via RFA completed with maintained efficacy appreciated by patient for 7 months; repeat procedure recently completed and patient states today significant benefit which has been maintained. 05/17/2024 Spondylosis without myelopathy or radiculopathy, lumbar region (ICD-10 - M47.816) partial sacralization of L5 with left L5-S1 transverse process pseudo articulation as per CT scan report (indicating possible transitional L5 vertebra: transitional anatomy noted via subsequent fluoroscopy) Prior lumbar RFA procedures with history of efficacy appreciated by patient. Most recent lumbar RFA procedure with maintained efficacy as of 05/17/24. 07/27/2024 Sacroiliitis, not elsewhere classified (ICD-10 - M46.1) Previous bilateral sacral denervation procedure via RFA completed with maintained efficacy appreciated by patient for 7 months; repeat procedure completed and patient states today significant benefit which has been maintained. 01/05/2025 Obstructive sleep apnea (adult) (pediatric) (ICD-10 - G47.33) Plan to continue opioid restriction related to sleep. 11/23/2024 Headache, unspecified (ICD-10 - R51.9) Headache benefit has been appreciated by patient post TPIs targeting upper cervical region. 11/16/2024 Headache, unspecified (ICD-10 - R51.9) Headache benefit has been appreciated by patient post TPIs targeting upper cervical region. 08/24/2024 Sacroiliitis, not elsewhere classified (ICD-10 - M46.1) Previous bilateral sacral denervation procedure via RFA completed with maintained efficacy appreciated by patient for 7 months; repeat procedure completed with maintained good benefit as of 08/24/24. 08/10/2024 Spondylosis without myelopathy or radiculopathy, lumbar region (ICD-10 - M47.816) partial sacralization of L5 with left L5-S1 transverse process pseudo articulation as per CT scan report (indicating possible transitional L5 vertebra: transitional anatomy noted via subsequent fluoroscopy) Prior lumbar RFA procedures with history of efficacy appreciated by patient. Most recent lumbar RFA procedure with maintained efficacy as of 08/10/24. 10/05/2024 Sacroiliitis, not elsewhere classified (ICD-10 - M46.1) Previous bilateral sacral denervation procedure via RFA completed with maintained efficacy appreciated by patient for 7 months; repeat procedure completed with maintained good benefit as of today. 10/05/2024 Spondylosis without myelopathy or radiculopathy, lumbar region (ICD-10 - M47.816) partial sacralization of L5 with left L5-S1 transverse process pseudo articulation as per CT scan report (indicating possible transitional L5 vertebra: transitional anatomy noted via subsequent fluoroscopy) Prior lumbar RFA procedures with history of efficacy appreciated by patient. Most recent lumbar RFA procedure with maintained good benefit as of today. 08/10/2024 Other chronic pain (ICD-10 - G89.29) Decreased pain medication use reported by patient due to and efficacious interventional treatment. 08/24/2024 Spondylosis without myelopathy or radiculopathy, lumbar region (ICD-10 - M47.816) partial sacralization of L5 with left L5-S1 transverse process pseudo articulation as per CT scan report (indicating possible transitional L5 vertebra: transitional anatomy noted via subsequent fluoroscopy) Prior lumbar RFA procedures with history of efficacy appreciated by patient. Most recent lumbar RFA procedure with maintained good benefit as of 08/24/24. 11/16/2024 Sacroiliitis, not elsewhere classified (ICD-10 - M46.1) Previous bilateral sacral denervation procedure via RFA completed with maintained efficacy appreciated by patient for 7 months; repeat procedure completed with maintained good benefit for another 7 months, up until recently. Will consider additional sacral interventional treatment when such treatment is desired by patient. 11/23/2024 Other chronic pain (ICD-10 - G89.29) Patient reports moderate benefit from current Tylenol #3 once a day dosing. Patient desires an increase in dosage for her once a day dosing. Plan to continue oral opioid medication management with a dosage titration. 07/27/2024 Spondylosis without myelopathy or radiculopathy, lumbar region (ICD-10 - M47.816) partial sacralization of L5 with left L5-S1 transverse process pseudo articulation as per CT scan report (indicating possible transitional L5 vertebra: transitional anatomy noted via subsequent fluoroscopy) Prior lumbar RFA procedures with history of efficacy appreciated by patient. Most recent lumbar RFA procedure with maintained efficacy as of 06/26/24. 05/17/2024 Other chronic pain (ICD-10 - G89.29) Patient reports that taking her pain medication allows her to take care of home chores. Plan to continue oral opioid medication management. 05/17/2024 Myalgia, other site (ICD-10 - M79.18) TPIs with history of short term benefit appreciated by patient. Oral relaxant medication use with history of benefit. Plan to continue medication management. 07/27/2024 Other chronic pain (ICD-10 - G89.29) Patient reports not utilizing her pain medicine regularly while she is . She said she may utilize it when she has her tooth extracted. 11/23/2024 Myalgia, other site (ICD-10 - M79.18) TPIs with history of efficacy appreciated by patient. Flexeril with history of benefit. Plan to refill Flexeril at today's visit. 11/16/2024 Spondylosis without myelopathy or radiculopathy, lumbar region (ICD-10 - M47.816) partial sacralization of L5 with left L5-S1 transverse process pseudo articulation as per CT scan report (indicating possible transitional L5 vertebra: transitional anatomy noted via subsequent fluoroscopy) Prior lumbar RFA procedures with history of efficacy appreciated by patient. Most recent lumbar RFA procedure with maintained good benefit. 08/24/2024 Other chronic pain (ICD-10 - G89.29) Decreased pain medication use reported by patient due to and efficacious interventional treatment. 08/10/2024 Myalgia, other site (ICD-10 - M79.18) TPIs with history of short term benefit appreciated by patient. Oral relaxant medication has been discontinued by patient due to . 10/05/2024 Other chronic pain (ICD-10 - G89.29) Decreased pain medication use has been reported by patient due to and efficacious interventional treatment. 10/05/2024 Myalgia, other site (ICD-10 - M79.18) TPIs with history of efficacy appreciated by patient. Oral relaxant medication has been discontinued by patient due to . 08/10/2024 Vertebrogenic low back pain (ICD-10 - M54.51) Chronic axial lumbosacral spine pain. Maintained improvement noted post most recent lumbar and sacral RFA procedures. 08/24/2024 Myalgia, other site (ICD-10 - M79.18) TPIs with history of short term benefit appreciated by patient. Oral relaxant medication has been discontinued by patient due to . 11/16/2024 Myalgia, other site (ICD-10 - M79.18) TPIs with history of efficacy appreciated by patient. Patient to notify this office if her oral relaxant medication is still efficacious as it was filled in 2021. Will refill when requested. 11/23/2024 Vertebrogenic low back pain (ICD-10 - M54.51) Chronic axial lumbosacral spine pain. 07/27/2024 Myalgia, other site (ICD-10 - M79.18) TPIs with history of short term benefit appreciated by patient. Oral relaxant medication has been discontinued by patient due to . 05/17/2024 Vertebrogenic low back pain (ICD-10 - M54.51) Chronic axial lumbosacral spine pain. Maintained improvement noted post most recent lumbar and sacral RFA procedures. 05/17/2024 Obstructive sleep apnea (adult) (pediatric) (ICD-10 - G47.33) Updated sleep study completed 04/15/22. The report revealed an AHI = 14 plus nocturnal hypoxemia. CPAP titration study revealed an AHI = 2 at the optimum pressure setting. Patient reports of compliance with use of her CPAP device. 07/27/2024 Vertebrogenic low back pain (ICD-10 - M54.51) Chronic axial lumbosacral spine pain. Maintained improvement noted post most recent lumbar and sacral RFA procedures. 11/23/2024 Sacroiliitis, not elsewhere classified (ICD-10 - M46.1) Previous bilateral sacral denervation procedure via RFA completed with maintained efficacy appreciated by patient for 7 months; repeat procedure on 03/14/24 completed with maintained good benefit as noted upon 11/23/24 follow up exam. Will consider additional sacral interventional treatment when such treatment is needed by patient. 11/16/2024 Obstructive sleep apnea (adult) (pediatric) (ICD-10 - G47.33) Patient confirms nightly use of her CPAP device. 08/24/2024 Vertebrogenic low back pain (ICD-10 - M54.51) Chronic axial lumbosacral spine pain. Maintained improvement noted post most recent lumbar and sacral RFA procedures, below. 08/10/2024 Obstructive sleep apnea (adult) (pediatric) (ICD-10 - G47.33) Updated sleep study completed 04/15/22. The report revealed an AHI = 14 plus nocturnal hypoxemia. CPAP titration study revealed an AHI = 2 at the optimum pressure setting. Patient reports of continued compliance with use of her CPAP device. 10/05/2024 Vertebrogenic low back pain (ICD-10 - M54.51) Chronic axial lumbosacral spine pain. Maintained improvement noted post most recent lumbar and sacral RFA procedures, below. 10/05/2024 Obstructive sleep apnea (adult) (pediatric) (ICD-10 - G47.33) Patient reports of continued compliance with use of her CPAP device as of 10/05/24 08/24/2024 Obstructive sleep apnea (adult) (pediatric) (ICD-10 - G47.33) Updated sleep study completed 04/15/22. The report revealed an AHI = 14 plus nocturnal hypoxemia. CPAP titration study revealed an AHI = 2 at the optimum pressure setting. Patient reports of continued compliance with use of her CPAP device as of 08/24/24. 11/23/2024 Obstructive sleep apnea (adult) (pediatric) (ICD-10 - G47.33) Patient reports that she has been unable to use her CPAP device for the last couple of months due to need for updated mask. She discussed the need for a different mask (due to history of significant weight loss) with her home health provider. Patient reports that she was to receive an updated mask via home health: the product was ordered but she never received it in the mail. Recommended patient follow up with home health to reorder the updated mask. Patient questioned the need for continued CPAP device use as she has been feeling better in regard to her sleep disorder post the significant weight loss. She desired another sleep study to test to see if she still needed to use the device. Request denied: recommended patient get the updated mask and perform trials of sleep with and without CPAP device usage to see if she really needs to continue use of the device based upon her assessment of device efficacy. 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 This places the patient in the high risk category, warranting more frequent screening. Plan 2 month visit pending continued compliance with patient's Treatment Agreement. Plan urine toxicology screen today with [facility] to monitor for presence of any unprescribed or illicit controlled substance(s), as well as prescribed tramadol (unable to test for tramadol in-office). 07/27/2024 Obstructive sleep apnea (adult) (pediatric) (ICD-10 - G47.33) Updated sleep study completed 04/15/22. The report revealed an AHI = 14 plus nocturnal hypoxemia. CPAP titration study revealed an AHI = 2 at the optimum pressure setting. Patient reports of continued compliance with use of her CPAP device. 07/27/2024 skilled nursing (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 analgesic (ICD-10 - Z79.891) 2022 opioid (OUD) risk tool score = 4. This places the patient in the high risk category, warranting more frequent screening. Plan urine toxicology screen today with [facility] to monitor for presence of any unprescribed or illicit controlled substance(s), as well as prescribed tramadol. 07/27/2024 Other Since patient h as become she has utilized the tramadol infrequently. Discussed opioid use during with patient. Recommended minimal to no use unless absolutely needed. Recommended no use in the last trimester of . 08/10/2024 Other Since patient h as become she has utilized the tramadol infrequently. Discussed opioid use during with patient. Recommended minimal to no use unless absolutely needed. Recommended no use in the last trimester of . 11/23/2024 Other 01/05/2025 Other The service was provided by LESLI Olsen, as part of the ongoing care plan established by Tavon Boo MD, who was present in the office for direct supervision during the encounter. Patient was provided with a letter at today's visit informing patient that this clinic is closing due to Dr. Boo's residential; see scanned document. Terminal prescriptions were given to the patient along with tapering instructions. 11/16/2024 Other The service was provided by LESLI Olsen, as part of the ongoing care plan established by Tavon Boo MD, who was present in the office for direct supervision during the encounter. Sarah Garnica FNP 11/16/2024 01:07:34 PM > After patient left her visit, this office was notified by pharmacy via [facility] that prescription for tramadol was denied as Medicaid has received a claim for seizures sometime in the past 2 years. Spoke with patient by phone. She states she has experienced seizure like activity but has never been formally diagnosed or treated for a seizure disorder. Patient confirmed that she has taken Tylenol with Codeine in the past with no adverse effects. Tramadol eRx was eCancelled. 7 day eRx for Tylenol #3 sent to patient's pharmacy. 10/05/2024 Other Since patient h as become she has utilized the tramadol infrequently. Discussed opioid use during with patient. Recommended minimal to no use unless absolutely needed. Recommended no use in the last trimester of . 08/24/2024 Other Since patient h as become she has utilized the tramadol infrequently. Discussed opioid use during with patient. Recommended minimal to no use unless absolutely needed. Recommended no use in the last trimester of . 05/17/2024 Other Plan Of Treatment No Information Insurance Providers Payer Name Payer Address Payer Phone Subscriber Number Group Number Insured Name Patient Relationship to Insured Coverage Start Date Coverage End Date [place] [employer] [address] [place] [address] [id number] Sandra Florez Self - patient is the insured Medical (General) History Medical History History ICD Code Chronic pain Low back pain Lumbar spondylosis and spina l stenosis (transitional L5 anatomy has been noted upon fluoroscopy) Sacroiliitis Mid back pain Neck pain that extends into the shoulders, shoulder blades, and occiput (myofascial pain syndrome) Degenerative disc disease Headaches Fibromyalgia Asthma Acid reflux disease PTSD Chronic fatigue syndrome Gestational diabetes ADD Depression ED visit for chest pain (history of) ER visit on 06/05/22 because legs gave out (treated in ER for heat exhaustion as per prior patient report) ED visit on 12/08/23 for sandra ry consumption and allergic reaction (to consumed cheeze) Sleep apnea and nocturnal hypoxemia Overweight (history of morbi d obesity and weight loss post gastric bypass surgery) Seizure-like activity Surgical History Surgery Date(Month/Year) Breast reduction, performed in [place], [place], 2007 Panniculectomy, performed at [facility] in [place], [place], 2013 Cholecystectomy, performed at [facility] in [place], [place], 2016 Hernia repair, performed at [facility], 2011, 2 020 Endoscopy with biopsy of sma ll intestine, performed at [facility] by Dr. Clemente, 01/28/23 Hernia repair, performed at [facility] by Dr. Lambert roberson, 02/02/23 Gastric bypass, performed at [facility] in [place], [place], 11/18/23 Hospitalization History Reason Date(Month/Year) Child , treated at [facility], 2008, 2011, 2017, 2019, 2020
[2025-03-20 00:49] VITALS: BP 118/73; PULSE 71; RESP 16; O2SAT 100
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
--- NOTE | 2025-03-20 01:07 | CTR_ITS ---
PROCEDURE INFORMATION: Exam: CT Head Without Contrast Exam date and time: 03/20/2025 1:34 AM Age: 39 years old Clinical indication: Seizure with RT eyelid droop; Additional info: Sz, right eyelid droop TECHNIQUE: Imaging protocol: Computed tomography of the head without contrast. Sagittal and coronal reformatted images were also reviewed. Radiation optimization: All CT scans at this facility use at least one of these dose optimization techniques: automated exposure control; mA and/or kV adjustment per patient size (includes targeted exams where dose is matched to clinical indication); or iterative reconstruction. COMPARISON: MR head wo/w con [id number] 04/18/2024 9:40 AM RADIATION DOSE METRICS: Total DLP (mGy-cm): 944.27 FINDINGS: Brain: No acute intracranial hemorrhage. No acute infarct. No intra-axial or extra-axial masses. Case-white matter differentiation is preserved. No cerebral edema. No extra-axial fluid collections. No midline shift. The cerebellar tonsils extend just below the level of the foramen magnum, findings are stable. Cerebral ventricles: No hydrocephalus. Paranasal sinuses: Visualized paranasal sinuses are clear. Mastoid air cells: Mastoid air cells are clear bilaterally. Orbital cavities: No acute abnormality in the visualized orbits. Bones: Unremarkable. No acute fracture. Soft tissues: No acute abnormality of the extracranial soft tissues. Soft tissue and subcutaneous emphysema in the right deep facial soft tissues and the right frontotemporal scalp with mild contusion at the right frontotemporal scalp. CT/CT head wo con* [id number] IMPRESSION: 1. No acute abnormality of the brain. 2. Soft tissue and subcutaneous emphysema in the right deep facial soft tissues and the right frontotemporal scalp with mild contusion at the right frontotemporal scalp. 3. Low-lying cerebellar tonsils. Findings are stable.
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
[2025-03-20] MEDS: sodium chloride 0.9% 1,000 ML 999 ML IV (01:21)
[2025-03-20] MEDS: valproic acid inj 500 MG in sodium chloride 0.9% 50 ML 55 MG IV (01:22)
[2025-03-20 01:24] LABS: Basophils % 0.4 %; Eosinophils # 0.1 10^3/uL (0.0-0.8); Eosinophils % 1.3 %; Hematocrit 36.8 % (36-47); Lymphocytes # 1.8 10^3/uL (0.8-4.8); Mean Corpuscular HGB Conc 32.3 g/dL (30-55); Mean Corpuscular Hemoglobin 28.6 pg (27-33); Mean Corpuscular Volume 88.5 fl (85-98); Monocytes # 0.5 10^3/uL (0.2-0.9); Monocytes % 7.4 %; Neutrophils # 4.34 10^3/uL (1.8-7.7); Neutrophils % 64.6 %; Nucleated Red Blood Cells % 0 %; Platelet Count 252 10^3/cmm (157-399); Red Blood Count 4.16 10^6/uL (3.85-5.65); Red Cell Distribution Width 14.4 % (12.1-15.1); White Blood Count 6.73 10^3/uL (3.29-11.43)
[2025-03-20 01:28] VITALS: BP 116/78; PULSE 57; RESP 18; O2SAT 99
[2025-03-20 01:38] LABS: INR 0.89 (0.8-1.2); Partial Thromboplastin Time 27.5 SECONDS (23.9-36.7)
[2025-03-20 01:42] LABS: HCG, Serum Qual Negative (Negative)
[2025-03-20 01:43] LABS: Alanine Aminotransferase 18 U/L (0-33); Albumin Level 3.6 g/dL (3.5-5.2); Alkaline Phosphatase 123 U/L (35-105); Anion Gap 11.2 (5-19); Aspartate Amino Transferase 15 U/L (0-32); Blood Urea Nitrogen 14 mg/dL (6-20); Calcium 8.6 mg/dL (8.5-10.5); Carbon Dioxide 27 mmol/L (22-29); Chloride 106 mmol/L (98-107); Creatine Phosphokinase 30 U/L (26-192); Globulin 2.8 g/dL (1.3-4.6); Glucose 93 mg/dL (65-115); Magnesium 2.2 mg/dL (1.7-2.3); Osmolality Calculated 290 mOsm/kg (285-295); Phosphorus 3.5 mg/dL (2.5-4.5); Potassium 4.2 mmol/L (3.5-5.1); Sodium 140 mmol/L (136-145); Total Bilirubin 0.5 mg/dL (0.15-1.2); Total Protein 6.4 g/dL (6.6-8.7)
[2025-03-20 01:44] LABS: Alcohol Level < 10 mg/dL (0-10); Lactic Sepsis W/Reflex 0.9 mmol/L (0.5-2.2)
[2025-03-20 02:16] VITALS: BP 113/78; PULSE 53; RESP 16; O2SAT 100
[2025-03-20 02:23] LABS: Bilirubin Urine Negative (Negative); Blood Urine 2+ (Negative); Glucose Urine UA Negative (Normal); Ketones Urine Trace (Negative); Leukocyte Esterase Urine Negative (Negative); Nitrate Urine Negative (Negative); Protein Urine Negative (Negative); Specific Gravity, Urine 1.025 (1.005-1.030); Urine Appearance Clear (CLEAR); Urine Color Yellow (Yellow); pH Urine 5.5 (5-7)
[2025-03-20 02:28] LABS: Add Urine Microscopic? YES; Bacteria Urine None Seen /hpf; Hyaline Casts Urine 0-4 /lpf; Squamous Epithelial Cell Urine 0-5 /hpf (0-5); WBC Urine 0-5 /hpf (0-5)
[2025-03-20 02:31] LABS: Amphetamines Screen Urine Negative (Negative); Barbiturates Screen Urine Negative (Negative); Benzodiazepines Screen Urine Negative (Negative); Cocaine Screen Urine Negative (Negative); Opiate Screen Urine Negative (Negative); PCP Screen Urine Negative (Negative); THC Screen Urine Negative (Negative)
[2025-03-20 02:39] LABS: UA Slide Review UA Slide Review Perf
[2025-03-20 02:44] VITALS: BP 109/66; PULSE 67; RESP 16; O2SAT 100
== END 2025-03-20 02:51 | disposition home or self-care (01) ==
PROVIDERS: Emergency Provider Emergency Medicine; PCP Family Medicine
DX: R56.9 Unspecified convulsions (principal); G43.109 Migraine with aura, not intractable, without status migrainosus
CPT/HCPCS: 36415; 70450; 80053; 80306; 80307; 81001; 82550; 83605; 83735; 84100; 84703; 85025; 85610; 85730; 96365; 99285; J3490; J7030

== ENCOUNTER 2025-03-22 11:50 | Emergency (ER) | payer MEDICAID, SELFPAY ==
[2025-01-23 15:14] VITALS: BP 131/94; BMI 29.6
[2025-03-22 11:54] VITALS: BP 131/92; PULSE 57; RESP 16; TEMP 36.5; O2SAT 98; BMI 29.2
--- OUTSIDE RECORDS SUMMARY | 2025-03-22 11:58 | XMS_ITS | Encounter Summary ---
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 Name Role Phone Tamiko Christensen MD Primary [...] FETUSES Toshia Rajan MD Phone: tel: fax: [facility] [place] [address] Phone: tel: fax: Referral ID Status Reason Start Date Expiration Date Visits Requested Visits Authorized [id number] Closed Ordering Department To Schedule 04/09/2018 05/10/2019 [...] FETUSES Toshia Rajan MD Phone: tel: fax: [facility] Maternal and [address] [address] Phone: tel: fax: Referral ID Status Reason Start Date Expiration Date Visits Requested Visits Authorized [id number] Closed Ordering Department To Schedule 04/09/2018 05/10/2019 [...] FETUSES Toshia Rajan MD Phone: tel: fax: [facility] and [address] [address] Phone: tel: fax: Referral ID Status Reason Start Date Expiration Date Visits Requested Visits Authorized [id number] Closed Ordering Department To Schedule 04/09/2018 05/10/2019 [...] FETUSES Toshia Rajan MD Phone: tel: fax: [facility] [address] [address] Phone: tel: fax: Referral ID Status Reason Start Date Expiration Date Visits Requested Visits Authorized [id number] Closed Ordering Department To Schedule 04/09/2018 05/10/2019 [...] fax: [facility] [place] [address] Phone: tel: fax: Referral ID Status Reason Start Date Expiration Date Visits Requested Visits Authorized [id number] Closed Ordering Department To Schedule 04/09/2018 05/10/2019 1 1 Encounter Details Date Type Department Care Team (Late st Contact Info) Description 04/09/2018 Ancillary Orders [facility] OBGYN[address] [place] [address] Toshia Rajan MD [address] [facility] [place] [address] HTN (hypertension), benign; Diet controlled [...] on file 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 Name: SANDRA PRESCOTT Study Date: 05/17/2018 10:50am Pat. NO: [id number] Referring MD: TOSHIA RAJAN Site: [facility] Speaker Wirer: Marlys Jones : 1985 Age: 32 INDICATION Other Condition Dx: HTN (hypertension), benign [I10 (ICD-10-CM)]; Diet controlled gestational diabetes mellitus (GDM) in third trimester [O24.410 (ICD-10-CM)]; Asthma, unspecified asthma severity, unspecified whether complicated, unspecified whether persistent [J45.909 (ICD-10-CM)] CODING Diagnosis XXX.10: Other condition Z3A.37: Weeks Gestation of Procedures 92965: Limited OB Ultrasound HISTORY OB History 3. [...] Note Jakob Galeana II, MD - 05/17/2018 [facility] Pat. Name:BASIL PRESCOTTAna Maria Date:05/17/2018 10:50am Pat. NO: [id number] MD:TOSHIA RAJAN [facility]:[place] [facility]ographer:Marlys Jones :1985Age:32 INDICATION Other Condition Dx: HTN (hypertension), benign [I10 (ICD-10-CM)]; Diet controlled gestational diabetes mellitus (GDM) in third trimester [O24.410 (ICD-10-CM)]; Asthma, unspecified asthma severity, unspecified whether complicated, unspecified whether persistent [J45.909 (ICD-10-CM)] CODING Diagnosis XXX.10: Other condition Z3A.37: Weeks Gestation of Procedures 15148: Limited OB Ultrasound HISTORY OB History 3. [...] biophysical profile Narrative 05/10/2018 3:07 PM T [facility] Pat. Name: SANDRA PRESCOTT Study Date: 05/10/2018 10:18am Pat. NO: [id number] Referring MD: TOSHIA RAJAN Site: [facility] Speaker Wirer: Francy Ross : 1985 Age: 32 INDICATION Maternal Hypertension, Chronic Diabetes - Gestational (unspecified) Maternal Asthma CODING Diagnosis O10.013: Pre-existing essential hypertension complicating O24.419: Gestational diabetes mellitus in , unspecified control O99.513: Diseases of the respiratory system complicating Z3A.36: Weeks Gestation of Procedures 27286: OB US Follow-up HISTORY OB History 3. [...] 7 lb 1 oz EFW by [facility]lock ([id number]-RO-[id number]-FL) Head / Face / Neck Biometry: Cephalic [...] Note Jakob Galeana II, MD - 05/10/2018 [facility] Pat. Name:Stephan PRESCOTT Date:05/10/2018 10:18am Pat. NO: [id number] MD:TOSHIA RAJAN [facility] :1985Age:32 INDICATION Maternal Hypertension, Chronic Diabetes - Gestational (unspecified) Maternal Asthma CODING Diagnosis O10.013: Pre-existing essential hypertension complicating O24.419: Gestational diabetes mellitus in , unspecified control O99.513: Diseases of the respiratory system complicating Z3A.36: Weeks Gestation of Procedures 18472: OB US Follow-up HISTORY OB History 3. [...] 7 lb 1 oz EFW by Hadlock (RMM-EC-PL-FL) Head / Face / Neck Biometry: Cephalic [...] biophysical profile Narrative 05/03/2018 4:49 PM CDT [facility] Pat. Name: SANDRA PRESCOTT Study Date: 05/03/2018 1:56pm Pat. NO: [id number] Referring MD: TOSHIA RAJAN Site: [facility] Speaker Wirer: Marlys Jones : 1985 Age: 32 INDICATION Other Condition Dx: HTN (hypertension), benign [I10 (ICD-10-CM)]; Diet controlled gestational diabetes mellitus (GDM) in third trimester [O24.410 (ICD-10-CM)]; Asthma, unspecified asthma severity, unspecified whether complicated, unspecified whether persistent [J45.909 (ICD-10-CM)] CODING Diagnosis XXX.10: Other condition Z3A.35: Weeks Gestation of Procedures 68985: Limited OB Ultrasound HISTORY OB History 3. [...] Kervin URIBE, Jakob Ornelas MD - 05/03/2018 [facility] Pat. Name:Stephan PRESCOTT Date:05/03/2018 1:56pm Pat. NO: [id number] :TOSHIA CUELLARBONS [facility] :1985Age:32 INDICATION Other Condition Dx: HTN (hypertension), benign [I10 (ICD-10-CM)]; Diet controlled gestational diabetes mellitus (GDM) in third trimester [O24.410 (ICD-10-CM)]; Asthma, unspecified asthma severity, unspecified whether complicated, unspecified whether persistent [J45.909 (ICD-10-CM)] CODING Diagnosis XXX.10: Other condition Z3A.35: Weeks Gestation of Procedures 20875: Limited OB Ultrasound HISTORY OB History 3. [...] biophysical profile Narrative 04/26/2018 5:03 PM CDT [facility] Pat. Name: SANDRA PRESCOTT Study Date: 04/26/2018 11:02am Pat. NO: [id number] Referring MD: TOSHIA RAJAN Site: [facility] Speaker Wirer: Marlys Jones : 1985 Age: 32 INDICATION Other Condition Dx: HTN (hypertension), benign [I10 (ICD-10-CM)]; Diet controlled gestational diabetes mellitus (GDM) in third trimester [O24.410 (ICD-10-CM)]; CODING Diagnosis XXX.10: Other condition Z3A.34: Weeks Gestation of Procedures 89570: Limited OB Ultrasound HISTORY OB History 3. [...] Kervin URIBE, Jakob Ornelas MD - 04/26/2018 [facility] Pat. Name:SANDRA PRESCOTTZan Date:04/26/2018 11:02am Pat. NO: [id number] MD:TOSHIA RAJAN Site:[place] [facility]ographer:Marlys Jones :1985Age:32 INDICATION Other Condition Dx: HTN (hypertension), benign [I10 (ICD-10-CM)]; Diet controlled gestational diabetes mellitus (GDM) in third trimester [O24.410 (ICD-10-CM)]; CODING Diagnosis XXX.10: Other condition Z3A.34: Weeks Gestation of Procedures 79191: Limited OB Ultrasound HISTORY OB History 3. [...] biophysical profile Narrative 04/19/2018 4:25 PM CDT [facility] Pat. Name: SANDRA PRESCOTT Study Date: 04/19/2018 11:51am Pat. NO: [id number] Referring MD: TOSHIA RAJAN Site: [facility] Speaker Wirer: Marlys Jones : 1985 Age: 32 INDICATION Diabetes - Gestational (insulin) CODING Diagnosis O24.414: Gestational diabetes mellitus in , insulin controlled Z3A.33: Weeks Gestation of Procedures 84918: Limited OB Ultrasound HISTORY OB History 3. [...] Note Jakob Galeana II, MD - 04/19/2018 [facility] Name:Stephan PRESCOTT Date:04/19/2018 11:51am Pat. NO: [id number] MD:TOSHIA RAJAN [facility] :1985Age:32 INDICATION Diabetes - Gestational (insulin) CODING Diagnosis O24.414: Gestational diabetes mellitus in , insulin controlled Z3A.33: Weeks Gestation of Procedures 66636: Limited OB Ultrasound HISTORY OB History 3. 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
--- OUTSIDE RECORDS SUMMARY | 2025-03-22 11:58 | XMS_ITS | Encounter Summary ---
Author Organization [facility] Address [address] [place] [address] Care Team Providers Care Residential Leasing Manager Name Role Phone Tamiko Christensen MD Primary Care Provid er Reason for Referral * Outpatient Services (Routine) - Closed Specialty Diagnoses / Procedures Referred By Kale richardson Referred To Contact Perinatology Diagnoses At risk for gestational diabetes mellitus Family history of transposition of great vessels Procedures ECHO 2D + COLOR FLOW VELOCITY Toshia Rajan MD Phone: tel: fax: [facility] [address] Phone: tel: fax: Referral ID Status Reason Start Date Expiration Date Visits Requested Visits Authorized [id number] Closed Ordering Department To Schedule 01/14/2018 02/14/2019 1 1 * Outpatient Services (Routine) - Closed Specialty Diagnoses / Procedures Referred By Kale richardson Referred To Contact Perinatology Diagnoses At risk for gestational diabetes mellitus Procedures US OB FOLLOW UP PER FETUS Toshia Rajan MD Phone: tel: fax: [facility] [place] [address] Phone: tel: fax: Referral ID Status Reason Start Date Expiration Date Visits Requested Visits Authorized [id number] Closed Ordering Department To Schedule 01/14/2018 02/14/2019 1 1 * Outpatient Services (Routine) - Closed Specialty Diagnoses / Procedures Referred By Kale t Referred To Contact Perinatology Diagnoses At risk for gestational diabetes mellitus Procedures US OB FOLLOW UP PER FETUS Toshia Rajan MD Phone: tel: fax: [facility] [place] [address] Phone: tel: fax: Referral ID Status Reason Start Date Expiration Date Visits Requested Visits Authorized [id number] Closed Ordering Department To Schedule 01/14/2018 02/14/2019 1 1 Encounter Details Date Type Department Care Team (Late st Contact Info) Description 01/14/2018 Ancillary Orders [facility] OBGYN[address] [place] [address] Toshia Rajan MD [address] [facility] [address] [place] [address] At risk for gestational diabetes [...] on file 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 Name: SANDRA PRESCOTT Study Date: 04/12/2018 10:35am Pat. NO: [id number] Referring MD: TOSHIA RAJAN Site: [facility] Telephone Diaphragm Assembler: Marlys Jones : 1985 Age: 32 INDICATION Maternal Hypertension, Chronic CODING Procedures 30024: OB US Follow-up HISTORY OB History 3. [...] 4 lb 9 oz EFW by Hadlock ([id number]) Head / Face / Neck Biometry: Cephalic index 0.79 44% [place] Wide Area Network Administrator 6.1 mm Extremities / Bony Struc Biometry: [...] Note Jakob Galeana II, MD - 04/12/2018 [place] Follow Up Pat. Name:Stephan PRESCOTT Date:04/12/2018 10:35am Pat. NO: [id number] MD:TOSHIA RAJAN Site:[place] MFMSonographer:Marlys Jones :1985Age:32 INDICATION Maternal Hypertension, Chronic CODING Procedures 28462: OB US Follow-up HISTORY OB History 3. [...] 4 lb 9 oz EFW by Hadlock ([id number]) Head / Face / Neck Biometry: Cephalic index 0.7944% Nicolaides Wide Area Network Administrator 6.1 mm Extremities / Bony Struc Biometry: [...] gestational age Narrative 03/15/2018 4:30 PM T [place] Follow Up Pat. Name: SANDRA PRESCOTT Study Date: 03/15/2018 8:23am Pat. NO: [id number] Referring MD: TOSHIA RAJAN Site: [facility] Telephone Diaphragm Assembler: Karina Seymour : 1985 Age: 32 INDICATION Other Condition Dx: At risk for gestational diabetes mellitus [Z91.89 (ICD-10-CM)] CODING Diagnosis XXX.10: Other condition Z3A.28: Weeks Gestation of Procedures 74377: OB US Follow-up HISTORY OB History 3. [...] 3 lb 2 oz EFW by Hadlock ([id number]) Head / Face / Neck Biometry: Cephalic index 0.75 12% Nicolaides Wide Area Network Administrator 5.7 mm Extremities / Bony Struc Biometry: [...] Kervin URIBE, Jakob Ornelas MD - 03/15/2018 [place] Follow Up Pat. Name:Stephan PRESCOTT Date:03/15/2018 8:23am Pat. NO: [id number] MD:TOSHIA RAJAN [facility] Seym[facility] :1985Age:32 INDICATION Other Condition Dx: At risk for gestational diabetes mellitus [Z91.89 (ICD-10-CM)] CODING Diagnosis XXX.10: Other condition Z3A.28: Weeks Gestation of Procedures 65731: OB US Follow-up HISTORY OB History 3. [...] 3 lb 2 oz EFW by Hadlock ([id number]) Head / Face / Neck Biometry: Cephalic index 0.7512% Nicolaides Wide Area Network Administrator 5.7 mm Extremities / Bony Struc Biometry: [...] INTERFACE SYSTEM - 02/17/2018 8:27 AM T [place] Echo Pat. Name: SANDRA PRESCOTT Study Date: 02/16/2018 8:22am Pat. NO: [id number] Referring MD: TOSHIA RAJAN Site: [facility] Telephone Diaphragm Assembler: Art Alcaraz : 1985 Age: 32 INDICATION Other Condition At risk for gestational diabetes mellitus [Z91.89 (ICD-10-CM)]; Family history of transposition of great vessels [Z82.79 (ICD-10-CM CODING Procedures 36550: Echo 2D 37099: Echo Spectral Doppler 24819: Doppler Color Flow Mapping HISTORY OB History [...] subcostal LVOT view normal RVOT view normal 2-ogttsb-gjuqoom view normal, 3 vessel and 3 vessel [...] DOPPLER Ductus Venosus: normal. Procedure Note Jakob Galenaa II, MD - 02/17/2018 [place] Echo Pat. Name:Stephan PRESCOTT Date:02/16/2018 8:22am Pat. NO: [id number] MD:TOSHIA RAJAN Site:[place] MFMSonographer:Art Alcaraz :1985Age:32 INDICATION Other Condition At risk for gestational diabetes mellitus [Z91.89 (ICD-10-CM)]; Family history of transposition of great vessels [Z82.79 (ICD-10-CM CODING Procedures 33857: Echo 2D 33667: Echo Spectral Doppler 89455: Doppler Color Flow Mapping HISTORY OB History [...] subcostal LVOT view normal RVOT view normal 7-zwqsuf-ogzukoh view normal, 3 vessel and 3 vessel [...] mellitus documented in this encounter Care Teams Residential Leasing Manager Relationship Specialty Start Date End Date Tamiko Christensen MD [address] [place] [address] PCP - General Family Practice 05/14/17 documented as of this encounter
--- OUTSIDE RECORDS SUMMARY | 2025-03-22 11:58 | XMS_ITS | Encounter Summary ---
Author Organization [facility] Address [address] [facility] [place] [address] Care Team Providers Care Analyst Market Intelligence Name Role Phone Tamiko Christensen MD Primary Care Provid er Encounter Details Date Type Department Care Team (Late st Contact Info) Description 07/01/[address] 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
--- OUTSIDE RECORDS SUMMARY | 2025-03-22 11:58 | XMS_ITS | Encounter Summary ---
Author Organization [facility] Address [address] [place] [address] Care Team Providers Care Dining Services Manager Name Role Phone Tamiko Christensen MD Primary Care Provid er Reason for Referral * Outpatient Services (Routine) - Closed Specialty Diagnoses / Procedures Referred By Kale richardson Referred To Contact Perinatology Diagnoses At risk for gestational diabetes mellitus History of delivery, currently in second trimester Procedures OB TRANSVAGINAL Toshia Rajan MD Phone: tel: fax: [facility] [place] [address] Phone: tel: fax: Referral ID Status Reason Start Date Expiration Date Visits Requested Visits Authorized [id number] Closed Ordering Department To Schedule 01/18/2018 02/18/2019 1 1 Encounter Details Date Type Department Care Team (Late st Contact Info) Description 01/18/2018 Ancillary Orders [facility] OBGYN-[address] [place] [address] Toshia Rajan MD [address] [facility] [place] [address] [place] [address] At risk for gestational diabetes [...] on file 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
--- OUTSIDE RECORDS SUMMARY | 2025-03-22 11:58 | XMS_ITS | Encounter Summary ---
Author Organization [facility] Address [address] [place] [address] Care Team Providers Care Kiln Tester Name Role Phone Tamiko Christensen MD Primary Care Provid er Reason for Referral * Outpatient Services (Routine) - Closed Specialty Diagnoses / Procedures Referred By Kale richardson Referred To Contact Perinatology Diagnoses At risk for gestational diabetes mellitus Family history of transposition of great vessels Procedures US OB FOLLOW UP PER FETUS Bill Rajan MD Phone: tel: fax: [facility] [place] [address] Phone: tel: fax: Referral ID Status Reason Start Date Expiration Date Visits Requested Visits Authorized [id number] Closed Ordering Department To Schedule 02/11/2018 03/14/2019 1 1 Encounter Details Date Type Department Care Team (Late st Contact Info) Description 02/11/2018 Ancillary Orders [facility] OBGYN-[address] [place] [address] Bill Rajan MD [address] [facility] [place] [address] [place] [address] At risk for gestational diabetes mellitus; Family [...] on file 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 Name: DEANDRE PRESCOTT Study Date: 02/16/2018 8:12am Pat. NO: [id number] Referring MD: BILL RAJAN Site: [facility] Ditching Machine Operator: Art Alcaraz : 1985 Age: 32 INDICATION Other Condition At risk for gestational diabetes mellitus [Z91.89 (ICD-10-CM)]; Family history of transposition of great vessels [Z82.79 (ICD-10-CM)] CODING Procedures 09015: OB US Follow-up HISTORY OB History 3. [...] 1 lb 13 oz EFW by Hadlock ([id number]) Head / Face / Neck Biometry: Cephalic index 0.73 6% Nicolaides Manager Administrative 3.0 mm Extremities / Bony Struc Biometry: [...] Note Jakob Galeana II, MD - 02/17/2018 [place] Follow Up Pat. Name:Stephan PRESCOTT Date:02/16/2018 8:12am Pat. NO: [id number] MD:BILL RAJAN [facility] :1985Age:32 INDICATION Other Condition At risk for gestational diabetes mellitus [Z91.89 (ICD-10-CM)]; Family history of transposition of great vessels [Z82.79 (ICD-10-CM)] CODING Procedures 69041: OB US Follow-up HISTORY OB History 3. [...] 1 lb 13 oz EFW by Hadlock ([id number]) Head / Face / Neck Biometry: Cephalic index 0.73 6% Nicolaides Manager Administrative 3.0 mm Extremities / Bony Struc Biometry: [...] anomalies documented in this encounter Care Teams Kiln Tester Relationship Specialty Start Date End Date Tamiko Christensen MD [address] [place] [phone] PCP - General Family Practice 05/14/17 documented as of this encounter
--- OUTSIDE RECORDS SUMMARY | 2025-03-22 11:58 | XMS_ITS | Patient Health Record ---
Author Organization [facility] Address [address] [place], [place] [id number] Care Team Providers Care Clinical Staff Rn Name Role Phone Kentrell Ann MD Primary Care Provider Unavailivone Boo MD, Tavon Unavailable [phone] Xena Horton DO Unavailable Unavailable Allergies Allergen [...] 09:26:11 AM Interpretation:Consistent Performing Lab: Notes/Report: Consistent Embedded PDF Reviewed date:08/01/2024 07:48:57 AM Interpretation: Performing Lab: Notes/Report: ab Director: Renata Damico MD, CLIA ID# [id number] [facility], [address], [facility] [address], , L [employer]fr Results Reviewed date:11/21/2024 09:25:45 AM Interpretation: Performing Lab:[id number] [facility], [address] [address] [employer] [address] Renata Damico MD Notes/Report: ab Director: Renata Damico MD, CLIA ID# [id number] [facility], [address] [address] [employer], [facility], [place] [address], , L OPIATES SCREEN negative 300 ng/mL [...] 200 ng/mL Tramadol Quantification positive-470.442 100 ng/mL Q-ylvbcycui-zfdthylw Quantification positive-7635.698 100 ng/mL T-Glzawjhkm-Lcxoiwmz Quantification negative 100 n g/mL Tapentadol Quantification negative 50 ng/mL BENZODIAZEPINES SCREEN negative 200 ng/mL Alpha-Hydroxyalprazolam Quantification negative 20 ng/mL 5-Oiwat-Findjjkwdx Quantification negative 20 ng/m L Lorazepam Quantification [...] 10 ng/mL Flubromazolam Quantification negative 10 ng/mL WTH070 metabolite Quantification negative 10 ng/mL BJJ846 metabolite Quantification negative 10 ng/mL RCS4 metabolite Quantification negative 10 ng/mL XLR11/UR144 metabolite negative 10 ng/mL 5F-ADB-M7 negative 10 ng/mL OD-EFFHSKFG-J3 negative 10 ng/mL LGXD-CIAPPKOF-N4 negative 10 ng/mL Eutylone Quantification negative 10 ng/mL Methylone Quantification negative 3 ng/mL Xylazine Quantification negative 10 ng/mL 4-hydroxy Xylazine Quantification negative 10 ng/m L Mitragynine (Kratom alkaloid) Quantification negative 1 ng/mL 8-EW-Xmeunersrze (Kratom alk aloid) Quantification negative 1 ng/mL CREATININE normal-120.0 >20 mg/dL mg/dL OXIDANT normal-0 <200 ug/mL ug/mL PH normal-7.5 4.5 - 9.5 SPECIFIC GRAVITY normal-1.016 1.003 - 1.035 Embedded PDF Reviewed date:11/21/2024 09:25:53 AM Interpretation: Performing Lab: Notes/Report: Para-fluorofentanyl: Fentanyl Negative. Acetyl fentanyl: Fentanyl Negative. Apolinar tyl norfentanyl: Fentanyl Negative. Acryl fentanyl: Fentanyl Negative. Carfentan il: Fentanyl Negative. [facility], [address], [facility], [place] [address], , L ab Director: Renata Damico MD, CLIA ID# [id number] [email or web address] Results Reviewed date:08/01/2024 07:48:48 AM Interpretation: Performing Lab:[id number] [facility], [address] [place] [address] Renata Damico MD Notes/Report: [facility], [address] [facility], [place] [address], , L ab Director: Renata Damico MD, CLIA ID# [id number] OPIATES SCREEN negative 300 ng/mL OXYCODONE SCREEN negative 100 ng/mL Oxymorphone Quantification negative 50 ng/mL BUPRENORPHINE SCREEN negative 10 ng/mL FENTANYL SCREEN negative 2 ng/mL METHADONE SCREEN negative 300 ng/mL TRAMADOL SCREEN negative 200 ng/mL Tramadol Quantification negative 100 ng/mL W-agsfgcnpb-pimtqvlt Quantification negative 100 n g/mL A-Uxvhmwpea-Ezmfhfca Quantification negative 100 n g/mL Tapentadol Quantification [...] 10 ng/mL Flubromazolam Quantification negative 10 ng/mL ODO330 metabolite Quantification negative 10 ng/mL BJO402 metabolite Quantification negative 10 ng/mL RCS4 metabolite Quantification negative 10 ng/mL XLR11/UR144 metabolite negative 10 ng/mL 5F-ADB-M7 negative 10 ng/mL PS-MHSXWGUZ-R8 negative 10 ng/mL WIVP-YVRLAETY-D6 negative 10 ng/mL Eutylone Quantification negative 10 ng/mL Methylone Quantification negative 3 ng/mL Xylazine Quantification negative 10 ng/mL 4-hydroxy Xylazine Quantification negative 10 ng/m L Mitragynine (Kratom alkaloid) Quantification negative 1 ng/mL 7-BK-Pyyasulicfy (Kratom alk aloid) Quantification negative 1 ng/mL CREATININE normal-308.1 >20 mg/dL mg/dL OXIDANT normal-0 <200 ug/mL ug/mL PH normal-5.7 4.5 - 9.5 SPECIFIC GRAVITY normal-1.028 1.003 - 1.035 Urine tox screen / MS if ind icated Reviewed date:08/01/2024 07:49:17 AM Interpretation:Consistent Performing Lab: Notes/Report: Consistent Reason For Referral Reason Evaluation for possi ble treatment (clinic closing due to provider's senior living) Diagnosis 1 Vertebrogenic low ba ck pain (M54.51) Diagnosis 2 Spondylosis without myelopathy or radiculopathy, lumbar region (M47.816) Diagnosis 3 Spinal stenosis, lum bar region with neurogenic claudication (M48.062) Referral Organization [facility] Referring Provider First Name Tavon Referring Provider [...] W/U Status Risk Notes Problem Solitary sacroiliitis (850958666) Sacroiliitis, not elsewhere classified (M46.1) Active confirmed Problem Lumbosacral spondylosis without myelopathy (08302414) Spondylosis without myelopathy or radiculopathy, lumbar region (M47.816) Active confirmed partial sacralization of L5 with left L5-S1 transverse process pseudo articulation as per CT scan report (indicating possible transitional L5 vertebra: transitional anatomy noted via subsequent fluoroscopy) Problem High risk drug monitoring status (181374531) 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) Active confirmed Problem Anxiety disorder (099642415) Other specified anxiety disorders (F41.8) Active confirmed Problem Hypersomnia (94139375) Hypersomnia, unspecified (G47.10) Active confirmed Problem Obstructive sleep apnea syndrome (69648234) Obstructive sleep apnea (adult) (pediatric) (G47.33) Active confirmed Problem Chronic pain (13430020) Other chronic pain (G89.29) Active confirmed Problem Cervicalgia (64617636) Cervicalgia (M54.2) Active confirmed Problem Pain in thoracic spine (795053281) Pain in thoracic spine (M54.6) Active confirmed Problem Backache (232391207) Dorsalgia, unspecified (M54.9) Active confirmed Problem Fibromyalgia (193865490) Fibromyalgia (M79.7) Active confirmed Problem Long-term current use of drug therapy (115361438) Other long term acute care registered nurse (current) drug therapy (Z79.899) Active confirmed Problem Neurogenic claudication (086864695) Spinal stenosis, lumbar region with neurogenic claudication (M48.062) Active confirmed Problem Myalgia (62313909) Myalgia of auxiliary muscles, head and neck (M79.12) Active confirmed Problem Muscle pain (89950623) Myalgia, other site (M79.18) Active confirmed Problem Headache (50992885) Headache, unspecified (R51.9) Active confirmed Problem Pain in lumbar spine (472056179) Vertebrogenic low back pain (M54.51) Active confirmed Vital Signs Temperature 97.8 degrees Fahrenheit 01/05/2025 Blood pressure diastolic 81 mm Hg 01/05/2025 Oximetry 100 % 01/05/2025 Height 64 in 01/05/2025 Blood pressure systolic 115 mm Hg 01/05/2025 Weight 170.2 lbs 01/05/2025 BMI 29.21 kg/m2 01/05/2025 Encounters Encounter Location Date Provider Diagnosis [facility] [place] [address] [address] [place], [place] [id number] 05/17/2024 Tavon Boo Myalgia of auxiliary muscles, head and neck M79.12 ; Headache, unspecified R51.9 ; Sacroiliitis, not elsewhere classified M46.1 ; Spondylosis without myelopathy or radiculopathy, lumbar region M47.816 ; Other chronic pain G89.29 ; Myalgia, other site M79.18 ; Vertebrogenic low back pain M54.51 and Obstructive sleep apnea (adult) (pediatric) G47.33 [facility] [address] [place], [place] [id number] 05/31/2024 Tavon Boo Procedure and treatment not carried out because of patient's decision for unspecified reasons Z53.20 [facility] [address] [address] [address] [place], [place] [id number] 07/27/2024 Tavon Boo Myalgia of auxiliary muscles, [...] of opiate analgesic Z79.891 [facility] [address] [place], [place] [id number] 08/10/2024 Tavon Boo Myalgia of auxiliary muscles, head and neck M79.12 ; Headache, unspecified R51.9 ; Sacroiliitis, not elsewhere classified M46.1 ; Spondylosis without myelopathy or radiculopathy, lumbar region M47.816 ; Other chronic pain G89.29 ; Myalgia, other site M79.18 ; Vertebrogenic low back pain M54.51 and Obstructive sleep apnea (adult) (pediatric) G47.33 [facility] [place] [address] [place], [place] [id number] 08/24/2024 Tavon Boo Myalgia of auxiliary muscles, head and neck M79.12 ; Headache, unspecified R51.9 ; Sacroiliitis, not elsewhere classified M46.1 ; Spondylosis without myelopathy or radiculopathy, lumbar region M47.816 ; Other chronic pain G89.29 ; Myalgia, other site M79.18 ; Vertebrogenic low back pain M54.51 and Obstructive sleep apnea (adult) (pediatric) G47.33 [facility] [address] [place], [place] [id number] 10/05/2024 Tavon Boo Myalgia of auxiliary muscles, head and neck M79.12 ; Headache, unspecified R51.9 ; Sacroiliitis, not elsewhere classified M46.1 ; Spondylosis without myelopathy or radiculopathy, lumbar region M47.816 ; Other chronic pain G89.29 ; Myalgia, other site M79.18 ; Vertebrogenic low back pain M54.51 and Obstructive sleep apnea (adult) (pediatric) G47.33 [facility] [address] [place], [place] [id number] 11/16/2024 Tavon Boo Other chronic pain G89.29 [...] of opiate analgesic Z79.891 [facility] [address] [place], [place] [id number] 11/23/2024 Tavon Boo Spondylosis without myelopathy or radiculopathy, lumbar region M47.816 ; Other specified anxiety disorders F41.8 ; Myalgia of auxiliary muscles, head and neck M79.12 ; Headache, unspecified R51.9 ; Other chronic pain G89.29 ; Myalgia, other site M79.18 ; Vertebrogenic low back pain M54.51 ; Sacroiliitis, not elsewhere classified M46.1 and Obstructive sleep apnea (adult) (pediatric) G47.33 [facility] [address] [place] [address] 12/05/2024 Tavon Boo Spondylosis without myelopathy or radiculopathy, lumbar region M47.816 and Other specified anxiety disorders F41.8 [facility] [address] [place] [id number] 01/05/2025 Tavon Boo Other chronic pain G89.29 ; Vertebrogenic low back pain M54.51 ; Myalgia, other site M79.18 and Obstructive sleep apnea (adult) (pediatric) G47.33 [facility] [address] [place] [id number] 03/28/2024 Tavon Boo [facility] [address] [place] [id number] 07/13/2024 Tavon Boo [facility] [address] [place] [id number] 11/17/2024 Tavon Boo [facility] [address] [place] [id number] 12/19/2024 Tavon Boo [facility] [address] [place] [id number] 01/26/2025 Tavon Boo Assessments Encounter Date Diagnosis (ICD Code) Assessment Notes Treatment Notes Treatment Clinical Notes Section Notes 05/31/2024 Procedure and treatment not carried out because of patient's decision for unspecified reasons (ICD-10 - Z53.20) 08/10/2024 Myalgia of auxiliary muscles, head and neck (ICD-10 - M79.12) TPI sessions with history of benefits that have been appreciated by patient. The benefits have included myalgia relief and headache relief. Plan TPIs at today's visit. 08/10/2024 Headache, unspecified (ICD-10 - R51.9) Headache benefit has been appreciated by patient post TPIs targeting upper cervical region. 08/24/2024 Myalgia of auxiliary muscles, head and neck (ICD-10 - M79.12) TPI sessions with history of benefits that have been appreciated by patient. The benefits have included myalgia relief and headache relief. Plan TPIs at today's visit. 10/05/2024 Myalgia of auxiliary muscles, head and neck (ICD-10 - M79.12) TPI sessions with history of benefits that have been appreciated by patient. The benefits have included myalgia relief and headache relief. Plan TPIs at today's visit. 11/16/2024 Other chronic pain (ICD-10 - G89.29) Patient reports that she miscarried her on 10/08/24 and has resumed use of her tramadol. Plan to continue oral opioid medication management. 11/16/2024 Vertebrogenic low back pain (ICD-10 - M54.51) Chronic axial lumbosacral spine pain. 05/17/2024 Myalgia of auxiliary muscles, head and neck (ICD-10 - M79.12) TPI sessions with history of benefits that have been appreciated by patient. The benefits have included myalgia relief and headache relief. Plan TPIs at today's visit. 05/17/2024 Headache, unspecified (ICD-10 - R51.9) Headache benefit has been appreciated by patient post TPIs targeting upper cervical region. 01/05/2025 Other chronic pain (ICD-10 - G89.29) Patient reports that taking her pain medication allows her to continue packing to move. Plan to continue oral opioid medication. 01/05/2025 Vertebrogenic low back pain (ICD-10 - M54.51) Chronic axial lumbosacral spine pain. 12/05/2024 Spondylosis without myelopathy or radiculopathy, lumbar region (ICD-10 - M47.816) Plan bilateral lumbar RFA of L3, L4 medial branch and L5 dorsal ramus. 07/27/2024 Myalgia of auxiliary muscles, head and neck (ICD-10 - M79.12) TPI sessions with history of benefits that have been appreciated by patient. The benefits have included myalgia relief and headache relief. Plan TPIs at today's visit. 11/23/2024 Spondylosis without myelopathy or radiculopathy, lumbar [...] (ICD-10 - F41.8) Plan monitored anesthesia care. 07/27/2024 Headache, unspecified (ICD-10 - R51.9) Headache benefit has been appreciated by patient post TPIs targeting upper cervical region. 11/23/2024 Myalgia of auxiliary muscles, head and [...] by patient. Plan TPIs at today's visit. 12/05/2024 Other specified anxiety disorders (ICD-10 - F41.8) Plan monitored anesthesia care. 01/05/2025 Myalgia, other site (ICD-10 - M79.18) Patient reports benefit with use of Flexeril for her spasms. Plan to continue. 05/17/2024 Sacroiliitis, not elsewhere classified (ICD-10 - M46.1) Previous bilateral sacral denervation procedure via RFA completed with maintained efficacy appreciated by patient for 7 months; repeat procedure recently completed and patient states today significant benefit which has been maintained. 11/16/2024 Myalgia of auxiliary muscles, head and neck (ICD-10 - M79.12) TPI sessions with history of benefits that have been appreciated by patient. The benefits have included myalgia relief and headache relief. 10/05/2024 Headache, unspecified (ICD-10 - R51.9) Headache [...] with maintained good benefit as of 08/10/24. 08/10/2024 Spondylosis without myelopathy or radiculopathy, lumbar region (ICD-10 - M47.816) partial sacralization of L5 with left L5-S1 transverse process pseudo articulation as per CT scan report (indicating possible transitional L5 vertebra: transitional anatomy noted via subsequent fluoroscopy) Prior lumbar RFA procedures with history of efficacy appreciated by patient. Most recent lumbar RFA procedure with maintained efficacy as of 08/10/24. 08/24/2024 Sacroiliitis, not elsewhere classified (ICD-10 - M46.1) Previous bilateral sacral denervation procedure via RFA completed with maintained efficacy appreciated by patient for 7 months; repeat procedure completed with maintained good benefit as of 08/24/24. 10/05/2024 Sacroiliitis, not elsewhere classified (ICD-10 - M46.1) Previous bilateral sacral denervation procedure via RFA completed with maintained efficacy appreciated by patient for 7 months; repeat procedure completed with maintained good benefit as of today. 11/16/2024 Headache, unspecified (ICD-10 - R51.9) Headache benefit has been appreciated by patient post TPIs targeting upper cervical region. 05/17/2024 Spondylosis without myelopathy or radiculopathy, lumbar region (ICD-10 - M47.816) partial sacralization of L5 with left L5-S1 transverse process pseudo articulation as per CT scan report (indicating possible transitional L5 vertebra: transitional anatomy noted via subsequent fluoroscopy) Prior lumbar RFA procedures with history of efficacy appreciated by patient. Most recent lumbar RFA procedure with maintained efficacy as of 05/17/24. 01/05/2025 Obstructive sleep apnea (adult) (pediatric) (ICD-10 - G47.33) Plan to continue opioid restriction related to sleep. 07/27/2024 Sacroiliitis, not elsewhere classified (ICD-10 - M46.1) Previous bilateral sacral denervation procedure via RFA completed with maintained efficacy appreciated by patient for 7 months; repeat procedure completed and patient states today significant benefit which has been maintained. 11/23/2024 Headache, unspecified (ICD-10 - R51.9) Headache benefit has been appreciated by patient post TPIs targeting upper cervical region. 11/23/2024 Other chronic pain (ICD-10 - G89.29) [...] to continue oral opioid medication management. 11/16/2024 Sacroiliitis, not elsewhere classified (ICD-10 - M46.1) Previous bilateral sacral denervation procedure via RFA completed with maintained efficacy appreciated by patient for 7 months; repeat procedure completed with maintained good benefit for another 7 months, up until recently. Will consider additional sacral interventional treatment when such treatment is desired by patient. 10/05/2024 Spondylosis without myelopathy or radiculopathy, lumbar region (ICD-10 - M47.816) partial sacralization of L5 with left L5-S1 transverse process pseudo articulation as per CT scan report (indicating possible transitional L5 vertebra: transitional anatomy noted via subsequent fluoroscopy) Prior lumbar RFA procedures with history of efficacy appreciated by patient. Most recent lumbar RFA procedure with maintained good benefit as of today. 08/24/2024 Spondylosis without myelopathy or radiculopathy, lumbar region (ICD-10 - M47.816) partial sacralization of L5 with left L5-S1 transverse process pseudo articulation as per CT scan report (indicating possible transitional L5 vertebra: transitional anatomy noted via subsequent fluoroscopy) Prior lumbar RFA procedures with history of efficacy appreciated by patient. Most recent lumbar RFA procedure with maintained good benefit as of 08/24/24. 08/10/2024 Other chronic pain (ICD-10 - G89.29) Decreased pain medication use reported by patient due to and efficacious interventional treatment. 08/10/2024 Myalgia, other site (ICD-10 - M79.18) TPIs with history of short term benefit appreciated by patient. Oral relaxant medication has been discontinued by patient due to . 08/24/2024 Other chronic pain (ICD-10 - G89.29) Decreased pain medication use reported by patient due to and efficacious interventional treatment. 10/05/2024 Other chronic pain (ICD-10 - G89.29) Decreased pain medication use has been reported by patient due to and efficacious interventional treatment. 11/16/2024 Spondylosis without myelopathy or radiculopathy, lumbar region (ICD-10 - M47.816) partial sacralization of L5 with left L5-S1 transverse process pseudo articulation as per CT scan report (indicating possible transitional L5 vertebra: transitional anatomy noted via subsequent fluoroscopy) Prior lumbar RFA procedures with history of efficacy appreciated by patient. Most recent lumbar RFA procedure with maintained good benefit. 05/17/2024 Myalgia, other site (ICD-10 - M79.18) [...] Plan to refill Flexeril at today's visit. 11/23/2024 Vertebrogenic low back pain (ICD-10 - [...] most recent lumbar and sacral RFA procedures. 11/16/2024 Myalgia, other site (ICD-10 - M79.18) TPIs with history of efficacy appreciated by patient. Patient to notify this office if her oral relaxant medication is still efficacious as it was filled in 2021. Will refill when requested. 10/05/2024 Myalgia, other site (ICD-10 - M79.18) [...] discontinued by patient due to . 08/10/2024 Obstructive sleep apnea (adult) (pediatric) (ICD-10 - G47.33) Updated sleep study completed 04/15/22. The report revealed an AHI = 14 plus nocturnal hypoxemia. CPAP titration study revealed an AHI = 2 at the optimum pressure setting. Patient reports of continued compliance with use of her CPAP device. 08/24/2024 Vertebrogenic low back pain (ICD-10 - M54.51) Chronic axial lumbosacral spine pain. Maintained improvement noted post most recent lumbar and sacral RFA procedures, below. 11/16/2024 Obstructive sleep apnea (adult) (pediatric) (ICD-10 - G47.33) Patient confirms nightly use of her CPAP device. 10/05/2024 Vertebrogenic low back pain (ICD-10 - M54.51) Chronic axial lumbosacral spine pain. Maintained improvement noted post most recent lumbar and sacral RFA procedures, below. 05/17/2024 Obstructive sleep apnea (adult) (pediatric) (ICD-10 [...] when such treatment is needed by patient. 11/23/2024 Obstructive sleep apnea (adult) (pediatric) (ICD-10 [...] based upon her assessment of device efficacy. 07/27/2024 Obstructive sleep apnea (adult) (pediatric) (ICD-10 - G47.33) Updated sleep study completed 04/15/22. The report revealed an AHI = 14 plus nocturnal hypoxemia. CPAP titration study revealed an AHI = 2 at the optimum pressure setting. Patient reports of continued compliance with use of her CPAP device. 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 This places the patient in the high risk category, warranting more frequent screening. Plan 2 month visit pending continued compliance with patient's Treatment Agreement. Plan urine toxicology screen today with [facility] to monitor for presence of any unprescribed or illicit controlled substance(s), as well as prescribed tramadol (unable to test for tramadol in-office). 10/05/2024 Obstructive sleep apnea (adult) (pediatric) (ICD-10 [...] of her CPAP device as of 08/24/24. 07/27/2024 [facility] (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 analgesic (ICD-10 - Z79.891) 2022 opioid (OUD) risk tool score = 4. This places the patient in the high risk category, warranting more frequent screening. Plan urine toxicology screen today with [facility] to monitor for presence of any unprescribed [...] clinic is closing due to Dr. Boo's senior living; see scanned document. Terminal prescriptions were given [...] office was notified by pharmacy via [facility] that prescription for tramadol was denied [...] End Date [place] [employer] [address] [place] [id number] Sandra Florez Self - patient is the [...] History Surgery Date(Month/Year) Breast reduction, performed in [place], [place], 2007 Panniculectomy, performed at [facility] in [place], [place], 2013 Cholecystectomy, performed at [facility] in [place], [place], 2016 Hernia repair, performed at [facility], 2011, 2 020 Endoscopy with biopsy of sma ll intestine, performed at [facility] by Dr. Clemente, 01/28/23 Hernia repair, performed at [facility] by Dr. Lambert roberson, 02/02/23 Gastric bypass, performed at [facility] in [place], [place], 11/18/23 Hospitalization History Reason Date(Month/Year) Child , treated at [facility], 2008, 2011, 2017, 2019, 2020
--- OUTSIDE RECORDS SUMMARY | 2025-03-22 11:58 | XMS_ITS | Clinical Summary ---
Author Organization [facility] Address [address] [place] [address] Phone Care Team Providers Care Certification Officer Name Role Phone Tamiko Christensen MD Primary Care Provid er Allergies Active Allergy Reactions Criticality Noted Date Comments Cedarwood Oil Other (See Comments) 05/14/2017 Sneezing. Imipramine Rash Low 04/28/2010 Oxybenzone-Padimate O Rash Medium 03/30/2011 Medications [id number]-dha 28 mg iron- 1 mg-400 mg [...] the great vessels; lived 6h. born in [place], [place]. High Cholesterol Sister 1 Unknown Sister [...] on file Legal Sex Female 11:09 AM [employer] Gender Identity Not on file Sexual Orientation [...] PAP RLFX HPV Routine 10/21/2017 11:52 AM ASSEMBLER [employer]IC[employer]CTOR Encounter for screening of mother from Last 3 Months or Most Recently Relevant to Health Maintenance Results * GLUCOSE FASTING (07/01/2018 10:38 AM CDT) GLUCOSE-FASTIN G 91 74 - 99 mg/dL 07/01/2018 11:57 AM CDT [facility] Blood Venipuncture / Unknown 07/01/2018 10:38 AM CDT 07/01/2018 10:38 AM CDT Jakob Galeana II, MD CHEMISTRY ORDERABLES Fatuma murphy Result [facility] CLIA# [id number] [id number] [place] [address] * CERV/VAG CYTOPATH, THIN PREP IMAGR RFLX HPV (10/21/2017 11:52 AM ASSEMBLER SEMICONDUCTOR) CLINICAL INFORMATION SEE COMMENT 10/26/2017 4:36 PM ASSEMBLER [employer]IC[employer] [facility] Comment:Information not prov ided LAST MENSTRUAL PERIOD SEE COMMENT 10/26/2017 4:36 PM ASSEMBLER [employer]IC[employer] [facility] Comment:INFORMATION NOT PROV IDED PREV PAP: SEE COMMENT 10/26/2017 4:36 PM ASSEMBLER [employer]IC[employer] [facility] Comment:INFORMATION NOT PROV IDED PREV BX: SEE COMMENT 10/26/2017 4:36 PM ASSEMBLER [employer]IC[employer] [facility] Comment:INFORMATION NOT PROV IDED SOURCE Endocervix 10/26/2017 4:36 PM ASSEMBLER [employer]IC[employer]UCTOR [facility] ADEQUACY: SEE COMMENT 10/26/2017 4:36 PM ASSEMBLER SEMICONDUCTOR [facility] Comment: Satisfactory for evaluation. Endocervical/transformation zone component present. Age and/or menstrual status not provided PAP INTERP SEE COMMENT 10/26/2017 4:36 PM ASSEMBLER SEMICONDUCTOR [facility] Comment:Negative for intraep ithelial lesion or malignancy. COMMENT SEE COMMENT 10/26/2017 4:36 PM ASSEMBLER [employer]IC[employer]UCTOR [facility] Comment: This Pap test has been evaluated with computer assisted technology. DIRECTOR OF STAFF DEVELOPMENT: SEE COMMENT 2017 4:36 PM ASSEMBLER [employer]IC[employer] [facility] Comment: BES, CT(ASCP) CT screening location: [place] [address] [address] [place] [address] Genital SWAB OF ENDOCERVIX / Unknown Collection / Unknown 10/21/2017 11:52 AM ASSEMBLER [employer]IC[employer]CTOR 10/22/2017 7:47 AM ASSEMBLER SEMIC[employer]CTOR Narrative [facility] - 10/26/2017 4:36 PM ASSEMBLER [employer]IC[employer]CTOR Performing Organization Information: Site ID: Name[facility] Address: [facility] [place] [address] Director: Lino Rosas MD Toshia Rajan MD PATHOLOGY/CYTOLOGY ORDERAB LES Final Result Performing Organization Address City/State/[facility] Co de Phone Number [facility] from Last 3 Months or Most Recently Relevant to Health Maintenance Insurance [facility] MEDICAID [place] Advance Directives For more information, please contact: [phone] * Full Code (Latest Code Status on [...] 11:38 AM 06/07/2013 4:40 PM Care Teams Certification Officer Relationship Specialty Start Date End Date Tamiko Christensen MD [address] [place] [id number] PCP - General Family Practice 05/14/17
[2025-03-22 11:59] VITALS: RESP 16; O2SAT 97
--- NOTE | 2025-03-22 12:39 | W.ED.SEIZURE ---
HPI - Seizure General: Chief Complaint: Seizure Stated Complaint: Seizure Time Seen by Provider: 03/22/25 11:53 History of Present Illness: HPI Narrative: 39-year-old female with a history of depression, obesity, anxiety and PTSD along with migraines who presents to the emergency room with concern for seizure-like activity. Apparently she has episodes where she spaces out . She was seen in the emergency room for this a few days ago and has neurology follow-up in the near future. No postictal state and apparently she remembers the episode., Related Data Home Medications ?Medication ?Instructions ?Recorded ?Confirmed albuterol sulfate 90 mcg/actuation 2 puff inhalation Q6H PRN 09/20/19 01/24/25 aerosol inhaler (ProAir HFA) Shortness Of Breath Or Wheezing fluticasone propionate 50 2 spray intranasal BID 09/20/19 01/24/25 mcg/actuation nasal spray,suspension (Allergy Relief (fluticasone)) acetaminophen 325 mg tablet 325 mg PO QID PRN pain 01/26/23 01/24/25 (Tylenol) ultra solo multivitamin 1 cap PO DAILY 12/01/23 01/24/25 calcium 250 mg-D3 500 unit-vit K tab PO 04/04/24 01/24/25 25 wvp-lqglxtmfm-khosco-borate tablet acetaminophen 300 mg-codeine 60 mg 1 tab PO DAILY PRN 12/06/24 01/24/25 tablet cyclobenzaprine 5 mg tablet 5 mg PO DAILY PRN 12/06/24 01/24/25 Previous Rx's ?Medication ?Instructions ?Recorded cetirizine 10 mg tablet (Zyrtec) 10 mg PO DAILY #30 tabs 11/30/19 fluticasone propionate 220 2 puff inhalation BID #12 grams 12/26/19 mcg/actuation HFA aerosol inhaler (Flovent HFA) clobetasol 0.05 % scalp solution 1 applic topical DAILY #50 mL 11/25/22 ketoconazole 2 % shampoo 1 applic topical Q14D #120 mL 11/25/22 triamcinolone acetonide 0.1 % 1 applic topical BID #80 grams 11/25/22 topical ointment hydroxyzine HCl 50 mg tablet 50 mg PO BID PRN anxiety #60 tabs 12/06/24 amoxicillin 875 mg-potassium 1 tab PO BID #14 tabs 02/08/25 clavulanate 125 mg tablet left and right hinged knee brace #1 ea 02/14/25 Allergies Allergy/AdvReac Type Severity Reaction Status Date / Time aspartame Allergy Severe Headache Verified 03/22/25 11:58 egg Allergy Mild Unknown Verified 03/22/25 11:58 aspirin Allergy ADR/ALGY-Hy Verified 03/22/25 11:58 potension cedarwood Allergy runny nose Verified 03/22/25 11:58 imipramine Allergy Rash Verified 03/22/25 11:58 milk Allergy bloating Verified 03/22/25 11:58 NSAIDS (Non-Steroidal Allergy Unknown Verified 03/22/25 11:58 Anti-Inflamma Sunblock Allergy Unknown Uncoded 03/22/25 11:58 Review of Systems Narrative: Constitutional symptoms: Negative except as documented in HPI. Skin symptoms: Negative except as documented in HPI. Eye symptoms: Negative except as documented in HPI. ENMT symptoms: Negative except as documented in HPI. Respiratory symptoms: Negative except as documented in HPI. Cardiovascular symptoms: Negative except as documented in HPI. Gastrointestinal symptoms: Negative except as documented in HPI. Genitourinary symptoms: Negative except as documented in HPI. Musculoskeletal symptoms: Negative except as documented in HPI. Neurologic symptoms: Negative except as documented in HPI. Psychiatric symptoms: Negative except as documented in HPI. Endocrine symptoms: Negative except as documented in HPI. PFSH ED PFSH: Medical History MDD (major depressive disorder), recurrent, in partial remission FH: thyroid disease FH: colon cancer in relative <50 years old Grandfather at age 40 colon cancer , 01/2023 EGD small Hiatal hernia and polyp's removed, no colonoscopy yet Weight loss, intentional 11/21/2022 274 lbs, 10/07/2023 251 lbs History of prediabetes last A1c 5.4 in 2022 BMI 40.0-44.9, adult Major depressive disorder, recurrent, moderate Psychiatric care Ventral hernia Blood type O- Obesity Generalized anxiety disorder Post-traumatic stress disorder, chronic Migraine without aura Asthma Fibromyalgia Surgical History History of hernia repair (~08/2020) History of cholecystectomy 2016 History of bilateral breast reduction surgery (2007) 2007 breast reduction History of abdominoplasty (2013) 2013 Pannus removal, karen peña @ [facility] Family History Mother Hypertension Diabetes Graves disease Grandmother Stroke Maternal Diabetes Paternal Father Hypercholesterolemia Grandfather Cancer Maternal Grandfather: Mesothelioma Grandfather Colon cancer Paternal---dx age unknown Denies family history of Ovarian cancer Heart disease Breast cancer Uterine cancer Social History Smoking and tobacco/nicotine status: never used tobacco/nicotine Alcohol intake: former Year of sobriety/quit date alcohol: 2010 Substance/Drug Use: never Additional social history: Well-balanced diet No substance abuse. 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 Skin: Warm, dry. Head: Normocephalic, atraumatic. Neck: Supple, trachea midline. Eye: Extraocular movements are intact. Ears, nose, mouth and throat: mucosa moist. Cardiovascular: Regular, Normal peripheral perfusion. Respiratory: Lungs are clear to auscultation, respirations are non-labored, breath sounds are equal, Symmetrical chest wall expansion. Gastrointestinal: Soft, Nontender, Non distended Musculoskeletal: Normal ROM, no deformity. Neurological: Alert and oriented, No focal neurological deficit observed. Psychiatric: Cooperative, appropriate mood & affect. Course Vital Signs: Vital signs: Vital Signs Temperature 97.7 F 03/22/25 11:54 Pulse Rate 57 L 03/22/25 11:54 Respiratory Rate 16 03/22/25 11:59 Blood Pressure 131/92 03/22/25 11:54 Pulse Oximetry 97 03/22/25 11:59 Oxygen Delivery Me thod Room Air 03/22/25 11:54 MDM - Seizure MDM Narrative Medical decision making narrative: Medical decision making: Differential diagnosis for this patient with a complaint of seizure like activity would include but not be limited to, and based on the above HPI, review of systems and physical exam: seizure, DT's, alcohol withdrawal, brain malignancy, pseudo-seizure, syncope. Orders placed to evaluate differential diagnosis based on the above differential, HPI and physical exam Lab Review: Laboratory results were reviewed and interpreted by myself the emergency room physician Labwork is unremarkable I reviewed the patient's medical record. Assessment and plan: Seizure-like activity - Discharged home - Discussed plan with patient. Answered any questions. - Evaluation and treatment of this problem were appropriate in the emergency setting. Lab Data 03/22/25 11:41 03/22/25 11:41 Labs: Laboratory Results WBC 8.55 10^3/uL (3.29-11.43) 03/22/25 11:41 RBC 4.53 10^6/uL (3.85-5.65) 03/22/25 11:41 Hgb 13.30 g/dL (11.27-16.99) 03/22/25 11:41 Hct 40.2 % (36-47) 03/22/25 11:41 MCV 88.7 fl (85-98) 03/22/25 11:41 MCH 29.4 pg (27-33) 03/22/25 11:41 MCHC 33.1 g/dL (30-55) 03/22/25 11:41 RDW 14.3 % (12.1-15.1) 03/22/25 11:41 Plt Count 283 10^3/cmm (157-399) 03/22/25 11:41 MPV 11.9 fL (7.4-10.4) H 03/22/25 11:41 Neut % (Auto) 78.3 % 03/22/25 11:41 Lymph % (Auto) 14.4 % 03/22/25 11:41 [place] % (Auto) 6.1 % 03/22/25 11:41 Eos % (Auto) 0.4 % 03/22/25 11:41 Baso % (Auto) 0.4 % 03/22/25 11:41 Neut # (Auto) 6.71 10^3/uL (1.8-7.7) 03/22/25 11:41 Lymph # (Auto) 1.2 10^3/uL (0.8-4.8) 03/22/25 11:41 [place] # (Auto) 0.5 10^3/uL (0.2-0.9) 03/22/25 11:41 Eos # (Auto) 0.0 10^3/uL (0.0-0.8) 03/22/25 11:41 Baso # (Auto) 0.0 10^3/uL (0.0-0.1) 03/22/25 11:41 Nucleated RBC % (auto) 0 % 03/22/25 11:41 Nucleated RBCs # 0.0 /100WBC 03/22/25 11:41 Sodium 144 mmol/L (136-145) 03/22/25 11:41 Potassium 4.0 mmol/L (3.5-5.1) 03/22/25 11:41 Chloride 104 mmol/L (98-107) 03/22/25 11:41 Carbon Dioxide 27 mmol/L (22-29) 03/22/25 11:41 Anion Gap 17.0 (5-19) 03/22/25 11:41 BUN 12 mg/dL (6-20) 03/22/25 11:41 Creatinine 0.6 mg/dL (0.5-0.9) 03/22/25 11:41 GFR Calculation 110.2 mL/min (90-130) 03/22/25 11:41 Glucose 78 mg/dL (65-115) 03/22/25 11:41 Calculated Osmolality 297 mOsm/kg (285-295) H 03/22/25 11:41 Lactic Acid 1.1 mmol/L (0.5-2.2) 03/22/25 11:41 Calcium 9.3 mg/dL (8.5-10.5) 03/22/25 11:41 Total Bilirubin 0.7 mg/dL (0.15-1.2) 03/22/25 11:41 AST 18 U/L (0-32) 03/22/25 11:41 ALT 20 U/L (0-33) 03/22/25 11:41 Alkaline Phosphatase 127 U/L (35-105) H 03/22/25 11:41 Total Protein 7.4 g/dL (6.6-8.7) 03/22/25 11:41 Albumin 4.3 g/dL (3.5-5.2) 03/22/25 11:41 Globulin 3.1 g/dL (1.3-4.6) 03/22/25 11:41 HCG, Qual Negative (Negative) 03/22/25 11:41 Amorphous Sediment Not Reportable 03/22/25 12:27 No radiology studies performed this visit Discharge Plan Discharge Patient Disposition: Home Clinical Impression: Seizure-like activity Condition: Stable Prescriptions: No Action cetirizine [Zyrtec] 10 mg tablet 10 mg PO DAILY Qty: 30 2RF albuterol sulfate [ProAir HFA] 90 mcg/actuation HFA aerosol inhaler 2 puff INHALATION Q6H PRN (Reason: Shortness Of Breath Or Wheezing) fluticasone propionate [Allergy Relief (fluticasone)] 50 mcg/actuation spray,suspension 2 spray INTRANASAL BID ultra solo multivitamin capsule 1 cap PO DAILY Ca Kmc-W0-S-Zwix-huwuh-nxe bor 250 mg calcium -500 unit tablet PO acetaminophen-codeine 300-60 mg tablet 1 tab PO DAILY PRN cyclobenzaprine 5 mg tablet 5 mg PO DAILY PRN hydroxyzine HCl 50 mg tablet 50 mg PO BID PRN (Reason: anxiety) Qty: 60 2RF Rx Instructions: Take one tablet twice daily, if needed, for anxiety ketoconazole 2 % shampoo 1 applic topical Q14D Qty: 120 6RF Rx Instructions: Lather into scalp 2-3 times weekly. Allowed to sit on scalp for 5 minutes before rinsing. triamcinolone acetonide 0.1 % ointment 1 applic topical BID Qty: 80 0RF Rx Instructions: Apply to affected area no more than 2 weeks/month. Not for use on face. clobetasol 0.05 % solution 1 applic topical DAILY Qty: 50 3RF Rx Instructions: Apply few drops to itchy areas of scalp as needed. (DME) left and right hinged knee brace See Rx Instructions .Route .MEDSUPPLY Qty: 1 0RF Rx Instructions: As directed Flovent HFA 220 mcg/actuation HFA aerosol inhaler 2 puff INHALATION BID Qty: 12 1RF Rx Instructions: In Cailin Friend absence's amoxicillin-pot clavulanate 875-125 mg tablet 1 tab PO BID Qty: 14 0RF acetaminophen [Tylenol] 325 mg Tablet 325 mg PO QID PRN (Reason: pain) Discharge Orders: Discharge ED (Routine); Ordered 03/22/25 Ordered By: Constance Rose Referrals: Kentrell Ann [Primary Care Provider, Family Practice] Discharge Diet: Usual diet Discharge Activity: Increase activity as tolerated Patient Instructions: Opioid Safety, Pain Management, Patient Portal & Berenice Instructions Activity Restrictions/Additional Instructions: No driving until you are cleared by a neurologist. Please keep your neurology follow-up appointment. Thank you for choosing [facility] for your healthcare needs today. You have been screened and evaluated and felt safe for discharge. Health conditions do change or evolve sometimes and as such it is important that you follow up with your Primary Doctor to be re checked, 3-5 days is a general good time frame for follow up. You are always welcome to return to the ED for re assessment if your symptoms are worsening or you have new concerns Print Language: New Zealander Coding Level of Care Code ED Accounting Analyst for Jess Gamboa
[2025-03-22 12:42] LABS: Hematocrit 40.2 % (36-47); Hemoglobin 13.30 g/dL (11.27-16.99); Mean Corpuscular HGB Conc 33.1 g/dL (30-55); Mean Corpuscular Hemoglobin 29.4 pg (27-33); Mean Corpuscular Volume 88.7 fl (85-98); Nucleated Red Blood Cells % 0 %; Platelet Count 283 10^3/cmm (157-399); Red Blood Count 4.53 10^6/uL (3.85-5.65); White Blood Count 8.55 10^3/uL (3.29-11.43)
[2025-03-22 12:53] LABS: Alanine Aminotransferase 20 U/L (0-33); Albumin Level 4.3 g/dL (3.5-5.2); Alkaline Phosphatase 127 U/L (35-105); Anion Gap 17.0 (5-19); Aspartate Amino Transferase 18 U/L (0-32); Blood Urea Nitrogen 12 mg/dL (6-20); Calcium 9.3 mg/dL (8.5-10.5); Carbon Dioxide 27 mmol/L (22-29); Chloride 104 mmol/L (98-107); Creatinine Clr Calc Pharmacy 124.0129; Globulin 3.1 g/dL (1.3-4.6); Glucose 78 mg/dL (65-115); HCG, Serum Qual Negative (Negative); Lactic Sepsis W/Reflex 1.1 mmol/L (0.5-2.2); Osmolality Calculated 297 mOsm/kg (285-295); Potassium 4.0 mmol/L (3.5-5.1); Sodium 144 mmol/L (136-145); Total Protein 7.4 g/dL (6.6-8.7)
[2025-03-22 13:24] LABS: Glucose Urine UA Negative (Normal); Nitrate Urine Negative (Negative); Specific Gravity, Urine 1.010 (1.005-1.030)
[2025-03-22 13:25] VITALS: BP 132/83; PULSE 58; O2SAT 98
[2025-03-22 13:31] LABS: PCP Screen Urine Negative (Negative)
== END 2025-03-22 13:26 | disposition home or self-care (01) ==
PROVIDERS: Emergency Provider Emergency Medicine; PCP Family Medicine
DX: R56.9 Unspecified convulsions (principal)
CPT/HCPCS: 80053; 80306; 81001; 83605; 84703; 85025; 87086; 99283

== ENCOUNTER → 2025-03-28 10:27 | Outpatient (BNVA) | payer MEDICAID, SELFPAY ==
[2025-01-23 15:14] VITALS: BP 131/94; BMI 29.6
== END ==
PROVIDERS: PCP Family Medicine; Visit Provider Psychiatry & Neurology Neurology
DX: G40.909 Epilepsy, unspecified, not intractable, without status epilepticus (principal); R55 Syncope and collapse
CPT/HCPCS: 36415; 82306; 82525; 82607; 82746; 83540; 83550; 83921; 84439; 84443; 99213

== ENCOUNTER 2025-04-06 12:36 | Outpatient (CLI) | payer MEDICAID, SELFPAY ==
[2025-01-23 15:14] VITALS: BP 131/94; BMI 29.6
[2025-04-06 13:51] LABS: Thyroid Stimulating Hormone 0.78 uIU/mL (0.27-4.20)
== END 2025-04-06 12:37 | disposition home or self-care (01) ==
LOC: LAB 12:39
PROVIDERS: PCP Family Medicine; Visit Provider Psychiatry & Neurology Neurology
DX: R56.9 Unspecified convulsions (principal)
CPT/HCPCS: 80164; 84443

== ENCOUNTER 2025-04-16 15:24 | Emergency (ER) | payer MEDICAID, SELFPAY ==
--- OUTSIDE RECORDS SUMMARY | 2012-05-07 10:19 | XMS_ITS | Continuity of Care Document ---
Author Organization [facility] Address [id number] [address] Phone Care Team Providers Care Food Production Worker Name Role Phone Coordinator, Care Unavailable Unavailable Allergies, Adverse Reactions, Alerts Substance Reaction Status Criticality imipramine Active No Information Medications Medication Instructions Dosage Effective Dates (start - stop) Status Comments Tylenol 325 mg Tab - Active Vitamin Tab - Activ e Ventolin HFA 90 mcg/Actuation Aerosol Inhaler - Active Procedures Procedure Date Limited Oral Evaluation Problem Focused EDR Approval Note Post Op No Charge EDR Approval Note Surgical Removal Of Erupted Tooth Requir ing Elevat Surgical Removal Of Erupted Tooth Requir ing Elevat Surgical Removal Of Erupted Tooth Requir ing Elevat Surgical Removal Of Erupted Tooth Requir ing Elevat Intravenous Conscious Sedati on/Analgesia First 3 EDR Approval Note Intravenous Conscious Sedati on/Analgesia Each Ad Limited Oral Evaluation Problem Focused EDR Approval Note Resin-Based Composite Two Surfaces, Anterior Resin-Based Composite One Surface, Anterior EDR Approval Note Prophylaxis Adult Limited Oral Evaluation Problem Focused EDR Approval Note Amalgam One Surface, Primary Or Permanent EDR Approval Note Resin-Based Composite Three Surfaces, Posterior EDR Approval Note Amalgam Two Surfaces, Primary Or Permanent EDR Approval Note Surgical Removal Of Erupted Tooth Requir ing Elevat Removal Of Impacted Tooth Soft Tissue EDR Approval Note Intraoral Periapical First Film Intraoral Periapical Each Additional Film Intraoral Periapical Each Additional Film Intraoral Periapical Each Additional Film Intraoral Periapical Each Additional Film Bitewings Four Films Panoramic Film Comprehensive Oral Evaluatio n New Or Established EDR Approval Note Advance Directives Directive Yes / No Effective Date File Name Resuscitation Not Answered N/A N/A Life Support Not Answered N/A N/A Intubation Not Answered N/A N/A Antibiotics Not Answered N/A N/A IV Fluid Support Not Answered N/A N/A Tube Feed Not Answered N/A N/A Other Directive N/A N/A WARNING:The information contained in this section is historical and is provided for information only and does not constitute a legal document or any assurance that the information is still accurate. Please verify the information with the dawson of the legal document before using it for clinical purposes. Encounters Encounter Description Practice Location Reason(s) For Visit Diagnoses Date Provider Providers Copied on Encounter [facility], [id number], [id number], [place] tel:[phone] [facility] No Information 2 Coordinator Care. [address] [place], [place], [id number], [place]. tel:[phone] [phone] [facility], [id number] [id number], [address], [place] tel:[phone] [facility] Dental examination 2 No Information [facility], [id number][facility] [place], [place], [id number], [place] tel:[phone] [facility] Dental examination 2 No Information [facility], [id number] 387351RI[facility] [place], [place], [id number], [place] tel:[phone] [facility] Dental examination 2 No Information [facility], [id number] 896842NE[facility] [place], [place], [id number], [place] tel:[phone] [facility] Dental examination 2 No Information [facility], [id number] 2009[address]TN[facility], [place], [place], [id number], [place] tel:[phone] [facility] Dental examination 2 No Information [facility], [id number] 541419HF[facility], [place], [place], [address], [place] tel:[phone] [facility] Dental examination 1 No Information [facility], [id number] 908466DC-[facility], [place], [place], [address], [place] tel:[phone] [facility] Dental examination 1 No Information [facility], [id number] [id number][facility], [place], [place], [address], [place] tel:[phone] [facility] Dental examination 1 No Information Referring Provider: Ambrose Stover T, [address] [facility] [place], [address]. tel:[phone] [facility], [id number] [place], [id number], [place] tel:[phone] [facility] Dental examination 1 Saira Ricci. [address] [place], [address], [place]. tel:[phone] [facility], [id number] [place], [id number], tel:[phone] [facility] Dental examination 1 [address] [place]. [address] [place], [address], [place]. tel:[phone] Referring Provider: Ambrose De León, [address] [place], [address]. tel:[phone] [facility], [address] [id number] [place], [address], tel:[phone] [facility] Dental examination 1 [address]. [address] [place], [address], [place]. tel:[phone] Referring Provider: Ambrose De León, [address] [place], [address]. tel:[phone] Family History Family Member Type Diagnosis Age At Onset No Information Payers Payer name Insurance type Covered alliance party ID Authoriza tion(s) No Information Social History Type Description Quantity Date Captured Comments Alcohol Use Details No Caffeine Use Details Unknown Tobacco Use Status No Information Smoking Status No Information Sex Female Chief Complaint And Reason For Visit No Information Reason For Referral Reason For Referral No Information History Of Present Illness Encounter Date Complaint History Of Prese nt Illness No Information Functional Status Date Functional Assessmen t No Information Instructions Date Instruction Additional Infor mation No Information Assessments Type Assessment Date No Information Patient Care Teams Name Effective Dates (start - stop) Status Members No Information
[2025-01-23 15:14] VITALS: BP 131/94; BMI 29.6
--- OUTSIDE RECORDS SUMMARY | 2025-03-10 23:59 | XMS_ITS | Continuity of Care Document ---
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) Diagnosis Morbid (severe) obesity due to excess calories Active Diagnosis Gastro-esophageal reflux disease without esophagitis Active Diagnosis Unspecified abdominal pain Active Diagnosis Allergies, Adverse Reactions, Alerts Substance Category Reaction Severity Reaction type Status Date Reported Comments Source Glutens Assertion GASTRIC DISTRESS Food allergy Resolved 19:11:06 [facility] imipramine Assertion RASH Drug allergy Active [facility] egg containing compound Assertion EGG WHITES Food allergy Active [facility] Milk Product Assertion Food allergy Active [facility] Results Order Name Results Value Reference Range [...] - 1.0 11/28 20:40 :18 Interpretive Data: Biyngw-lz-ijo e transgender patients on testosterone therapy should have results assessed using the male reference range. Gugw-fx-bkger e transgender patients on hormone-modul ating therapy clinical judgment is advisedfor assessment. [facility] GENER[facility]MISTR[facility] Total Protein 7.0 g/dL 5.7 - 8.2 11/28 20:40 :18 [facility] GENERAL CHEMISTRY Estimated GFR for Adults 104 mL/min/1.7 3m 11/28 20:40 :18 Interpretive Data: Changed to CKD-EPI 2020 on 2020. [facility] GENERAL CHEMISTRY Estimated GFR for peds Not Calculated mL/min/1.7 3m 11/28 20:40 :18 Interpretive Data: The estimated GFR was calculated using the B hiwot Newberry equation (2009) . Reference: Pediatric GFR calculator at [employer] Website. [facility] GENERAL CHEMISTRY Albumin 3.7 [...] Program [employer] [facility] [address] [address] [facility] [address] http:www.nhlb i.nih.gov [facility] [...] Program [facility] [address] [address] [place] [address] http://www.de lbi,nih.gov [facility] GENERAL [...] - 15.5 11/28 20:40 :18 Interpretive Data: Mrvepr-lo-wut e transgender patients on testosterone therapy should have results assessed using the male reference range. Glsv-tu-busxn e transgender patients on hormone-modul ating therapy clinical judgment is advisedfor assessment. [facility] HEMATOLOGY PROFILES HCT 40.9 % 34.9 - 44.5 11/28 20:40 :18 Interpretive Data: Cezgsh-jm-hqt e transgender patients on testosterone therapy should have results assessed using the male reference range. Smvj-mw-epgnz e transgender patients on hormone-modul ating therapy [...] 20:40 :18 [facility] Intact PTH 113.7 pg/mL 18.4 - 80.1 11/28 20:40 :18 [facility] REFERENCE LABS Thiamin( Bld)-[place] 168 nmol/L 70 - 180 11/28 20:40 :18 Result Comment: ------ADDITIO NAL INFORMATION-- ---- This test was developed and its performance characteristi cs determined by [facility] in a manner consistent with CLIA requirements. This test has not been cleared or approved by the U.S. Food and Drug Administratio n. Test Performed by: [facility] [place] [address] Bottoming Machine Operator: Ofe Restrepo Ph.D.; CLIA# [id number] [facility] REFERENCE LABS Free Retinol(Vit A)-[place] 33.8 ug/dL 32.5 - 78.0 11/28 20:40 :18 Result Comment: ------ADDITIO NAL INFORMATION-- ---- This test was developed and its performance characteristi cs determined by [facility] in a manner consistent with CLIA requirements. This test has not been cleared or approved by the U.S. Food and Drug Administratio n. Test Performed by: [facility] [place] [address] Bottoming Machine Operator: Ofe Restrepo Ph.D.; CLIA# [id number] [facility] REFERENCE LABS A-Tocopherol , Vit E-[place] 10.1 mg/L 5.5 - 17.0 11/28 20:40 :18 Result Comment: ------ADDITIO NAL INFORMATION-- ---- This test was developed and its performance characteristi cs determined by [facility] in a manner consistent with CLIA requirements. This test has not been cleared or approved by the U.S. Food and Drug Administratio n. Test Performed by: [facility] [place] [address] Bottoming Machine Operator: Ofe Restrepo Ph.D.; CLIA# [id number] [facility] REFERENCE LABS Vitamin K1-[place] 0.32 ng/mL 0.10 - 2.20 11/28 20:40 :18 Result Comment: ------ADDITIO NAL INFORMATION-- ---- This test was developed and its performance characteristi cs determined by [facility] in a manner consistent with CLIA requirements. This test has not been cleared or approved by the U.S. Food and Drug Administratio n. Test Performed by: [facility] [place] [address] Bottoming Machine Operator: Ofe Restrepo Ph.D.; CLIA# [id number] [facility] REFERENCE LABS Zinc, S-[place] 71 ug/dL 60 - 106 11/28 20:40 :18 Result Comment: ------ADDITIO NAL INFORMATION-- ---- This test was developed and its performance characteristi cs determined by [facility] in a manner consistent with CLIA requirements. This test has not been cleared or approved by the U.S. Food and Drug Administratio n. Test Performed by: [facility] [place] [address] Bottoming Machine Operator: Ofe Restrepo Ph.D.; CLIA# [id number] [facility] REFERENCE LABS Copper, S-[place] 131 ug/dL 77 - 206 11/28 20:40 :18 Result Comment: ------ADDITIO NAL INFORMATION-- ---- This test was developed and its performance characteristi cs determined by [facility] in a manner consistent with CLIA requirements. This test has not been cleared or approved by the U.S. Food and Drug Administratio n. Test Performed by: [facility] [place] [address] Bottoming Machine Operator: Ofe Restrepo Ph.D.; CLIA# [id number] [facility] Consultation Notes [...] Lipid Profile Magnesium Level Phosphorus Level Copper, serum-[place] Vitamin B1 (Thiamin) Whole Blood-[place] Vitamin B12 Level Vitamin K1 level-[place] Vitamin A level-[place] Vitamin D Level Zinc Level-[place] Patient advised to continue Bariatric MVI along with [id number] mg per day with Vitamin D. 4) [...] fluticasone nasal(fluticasone 50 mcg/inh nasal spray), 2 [place], Each Nostril, bid, PRN gabapentin(gabapentin 300 mg [...] Patient endorses that they are in the [facility] during this telehealth visit. Visit type: [...] if she doesn't make it to a [facility] lab. Ordered full bariatric lab panel including: CBC with Auto Differential Comprehensive Metabolic Panel Ferritin Level Folate Level Intact PTH Iron Level and TIBC Lipid Profile Magnesium Level Phosphorus Level Copper, serum-[place] Vitamin B1 (Thiamin) Whole Blood-[place] Vitamin B12 Level Vitamin K1 level-[place] Vitamin A level-[place] Vitamin D Level Zinc Level-[place] Patient advised to continue Bariatric MVI along with [id number] mg per day with Vitamin D. 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 Visit Date: 05/24/2024 05/24/2024 Vital Signs Vital [...] [facility] [id number] Albert Licona 05/24 13:04 :04 05/25 04:59 :59 [facility] [id number] Theodore Case 05/24 13:06 :59 05/25 04:59 :59 [facility] Clinic [id number] Theodore Case 11/28 19:03 :45 11/29 04:59 :59 [facility] Between Visit [id number] 11/29 17:59 :39 11/30 04:59 :59 [facility] Between Visit [id number] 12/07 21:43 :25 12/08 04:59 :59 [facility] Between Visit [id number] 03/10 14:05 :49 03/11 04:59 :59 [facility] Between Visit [id number] 03/10 18:06 :10 03/11 04:59 :59 [facility] Procedures Procedure Code Date Perfomer Comments Source ABDOMINAL HERNIA W/MESH [facility] UMBILICAL HERNIA SURGERY WIT H MESH [facility] [place] WOMEN AN D [facility] Social History Social History Date Source Social History TypeResponse Sex Female Sex Representation Female (finding) 03/11/2025 [facility] [place] Social History TypeResponse Sex Female Sex Representation [...]
[2025-04-16 15:28] VITALS: BP 112/74; PULSE 72; RESP 16; TEMP 37.1; O2SAT 99; BMI 29.2
--- OUTSIDE RECORDS SUMMARY | 2025-04-16 15:31 | XMS_ITS | Clinical Summary ---
Author Organization [facility] Address [address] [facility] [address] Attn: Epic Prelude ADT JASON THORPE [address] Care Team Providers Care Match Marker Name Role Phone Kentrell Ann MD Primary Care Provider [phone] Allergies Active Allergy Reactions Criticality Noted Date [...] Shortness of Breath. Active Cetirizine 10 mg CapsuleIndicatio ns:Environmental allergies Take 10 mg by mouth daily. 100 Capsule 3 4 Active fluticasone propionate (FLONASE) 50 mcg/spray [place], Suspension nasal inhalerIndicatio ns:Environmental allergies Administer 2 Sprays in each nostril 2 times daily. 16 Gram 11 4 Active vitamin A 10,000 unit capsuleIndicatio ns:Vitamin A deficiency Take 1 Capsule (10,000 Units) by mouth daily. 100 Capsule 3 4 Active ketoconazole (NIZORAL) 2 % Shampoo WASH TO SCALP TWO TO THREE times PER week; set FIVE minutes before rinsing 4 Active ketoconazole (NIZORAL) 2 % Cream apply TO entire FEET topically TWICE DAILY FOR THREE weeks during flares; including between TOES 4 Active cyclobenzaprine (FLEXERIL) 5 mg Tablet Take 1 Tablet (5 mg) by mouth 1 time daily as needed for Spasm or Pain. 100 Tablet 5 Active acetaminophen-co deine (TYLENOL #4) 300-60 mg tablet 1 tab orally Q24 prn pain (hold within 4H of planned sleep) for 28 days 5 Active naloxone (Narcan) 4 mg/spray [place], Non-Aerosol as directed intranasally once 2 Active vitamin B complex Capsule as directed Ac tive acetaminophen (TylenoL) 325 mg tablet 1-2 tabs orally every 4 hours, as needed Active hydrOXYzine HCL (ATARAX) 50 mg tablet 1 tab(s) orally 4 times a day 5 Active gabapentin (NEURONTIN) 100 mg capsule 5 Active fluticasone propionate (FLOVENT HFA) 220 mcg/actuation HFA Aerosol InhalerIndicatio ns:Mild intermittent asthma, unspecified whether complicated Take 2 Puffs by inhalation every 12 hours. 12 Gram 1 5 Active Active Problems Problem Noted Date Diagnosed [...] Encounters Date Type Department Care Team Description 03/28/2025 External Device Data [facility] ABSTRACTION Provider, Abstract 03/28/2025 External Device Data [facility] ABSTRACTION Provider, Abstract 03/28/2025 External Device Data [facility] ABSTRACTION Provider, Abstract 03/23/2025 12:14 PM CDT - 03/23/2025 3:[address] [facility] Emergency Medicine [address] [place] [address] Lowell Tejada, Hemiplegic migraine with status migrainosus, not intractable (Primary Dx); Psychogenic nonepileptic seizure Discharge Disposition: Home or Self Care 03/23/2025 Travel 03/23/[address] [phone] Kentrell Ann MD Clinical Consult Before Scheduling 03/20/2025 Orders Only [facility] [address] [place] [id number] Provider, Abstract 03/20/[address] [address] Kentrell Ann MD 03/17/2025 Results Follow-Up [address] [address] Rashmi Wu FNP VITAMIN A LEVEL, COMPREHENSIVE METABOLIC PANEL, CBC WITH DIFFERENTIAL, Additional followed-up results: 3 03/14/2025 1:00 PM CDT Office Visit [address] [phone] Rashmi Wu FNP Hypoglycemia (Primary Dx); Missed menses; Vitamin A deficiency; Mild intermittent asthma, unspecified whether complicated 03/07/2025 External Device Data [facility] ABSTRACTION Provider, Abstract 03/01/2025 7:44 AM CDT - 03/01/2025 11:59 PM CDT Hospital Encounter [facility] [place] [address] [phone] Elisa Hay FNP Discharge Disposition: Home or Self Care 03/01/2025 Orders Only [address] [phone] Elisa Hay FNP 03/01/[address] [address] Kentrell Ann MD Patient Communication 03/01/2025 Results Follow-Up [address] [address] ABDOMEN PELVIS W CONTRAST 02/22/2025 2:40 PM CDT Office Visit [address] [address] Elisa Hay FNP Abdominal wall pain (Primary Dx); Irregular menses; Acute generalized abdominal pain 02/09/2025 External Device Data [facility] ABSTRACTION Provider, Abstract 01/23/2025 Orders Only [facility] [address] [place] [address] Provider, Abstract from Last 3 Months Immunizations [...] the great vessels; lived 6h. born in [place], [place]. 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 Gender Identity Not on file Sexual Orientation Not on file Last Filed Vital Signs Vital Sign Reading Time Taken Comments Blood Pressure 112/83 03/23/2025 3:15 PM CDT Pulse 51 03/23/2025 3:15 PM CDT Temperature 36.8 C (98.2 F) 03/23/2025 12:15 PM CDT Respiratory Rate 14 03/23/2025 3:15 PM CDT Oxygen Saturation 99% 03/23/2025 3:15 PM CDT Inhaled Oxygen Concentration - - Weight 83.6 kg (184 lb 3.2 oz) 03/23/2025 12:15 PM CDT Height 162.6 cm (5' 4 ) 03/23/2025 12:15 PM CDT Body Mass Index 31.62 03/23/2025 12:15 PM CDT Plan of Treatment Health Maintenance Due Date Last Done Comments HPV VACCINES (1 - 3-dose series) 11/21/1998 HEPATITIS B VACCINES (1 of 3 - 19+ 3-dose series) 11/21/2002 PAP SMEAR 10/21/2020 10/21/2017, 10/21/2017 DTAP/TDAP/TD VACCINES (2 - T d or Tdap) 11/25/2021 11/26/2011 CERVICAL CANCER SCREENING 10/21/2022 HPV/Cotest (21-29) 10/21/2022 10/21/2017 HPV/Cotest (30-65) 10/21/2022 10/21/2017 BREAST CANCER SCREENING 2023 INFLUENZA VACCINE (#1) 2025 , 06/14/2024, 08/05/2018, Additional history exists Preventative Visit-Managed Medicaid 11/11/2025 11/10/2024 Pre-Diabetes and Diabetes Screening 03/14/2028 03/14/2025, 06/14/2024, 07/01/2018, Additional history exists Procedures Procedure Name Priority Date/Time Associated Diagnosis Comments ACETAMINOPHEN LEVEL Stat 03/23/2025 1 2:10 PM CDT SALICYLATE LEVEL Stat 03/23/2025 12:1 0 PM CDT ETHANOL LEVEL Stat 03/23/2025 12:10 PM CDT TSH Stat 03/23/2025 12:10 PM CDT CBC WITH DIFFERENTIAL Stat 03/23/2025 12:10 PM CDT COMPREHENSIVE METABOLIC PANEL Stat 03/23/2025 12:10 PM CDT COMPREHENSIVE METABOLIC PANEL Routine 03/20/2025 10:25 AM CDT PROTIME-INR Routine 03/20/2025 HCG QUANTITATIVE, BLOOD Routine 03/14/2025 1:21 PM [...] PAP RLFX HPV Routine 10/21/2017 11:52 AM [employer]ORCYCLE [employer] OFFICER from Last 3 Months or Most Recently Relevant to Health Maintenance Results * (ABNORMAL) CBC WITH DIFFERENTIAL (03/23/2025 12:10 PM CDT) Only the most recent of2 resultswithin the time period is included. WBC 7.2 4.0 - 10.0 K/uL 03/23/2025 1:49 PM [facility] RBC 4.65 3.93 - 5.22 M/uL 03/23/2025 1:49 PM [facility] HEMOGLOBIN 13.4 11.2 - 15.7 g/dL 03/23/2025 1:49 PM [facility] HEMATOCRIT 40.9 34.1 - 44.9 % 03/23/2025 1:49 PM [facility] MCV 88.0 79.4 - 94.8 fL 03/23/2025 1:49 PM [facility] MCH 28.8 25.6 - 32.2 pg 03/23/2025 1:49 PM [facility] MCHC 32.8 32.2 - 35.5 g/dL 03/23/2025 1:49 PM [facility] RDW 14.4 11.0 - 14.5 % 03/23/2025 1:49 PM [facility] RDW-STDEV 45.9 36.9 - 56.9 fL 03/23/2025 1:49 PM [facility] PLATELETS 258 163 - 337 K/uL 03/23/2025 1:49 PM [facility] MPV 12.1 10.0 - 14.8 fL 03/23/2025 1:49 PM [facility] NEUTROPHILS 68 34 - 71 % 03/23/2025 1:49 PM [facility] LYMPHOCYTES 24 19 - 52 % 03/23/2025 1:49 PM [facility] MONOCYTES 6 5 - 13 % 03/23/2025 1:49 PM [facility] EOSINOPHILS 1 1 - 6 % 03/23/2025 1:49 PM [facility] BASOPHILS 0 0 - 1 % 03/23/2025 1:49 PM CDT [facility] IMMATURE GRANULOCYTES 0 % 03/23/2025 1:49 PM CDT [facility] NEUTROPHIL ABSOLUTE 4.89 1.56 - 6.13 K/uL 03/23/2025 1:49 PM CDT [facility] LYMPHOCYTE ABSOLUTE 1.75 1.20 - 3.40 K/uL 03/23/2025 1:49 PM CDT [facility] MONOCYTE ABSOLUTE 0.45(H) 0.24 - 0.36 K/uL 03/23/2025 1:49 PM CDT [facility] EOSINOPHIL ABSOLUTE 0.05 0.04 - 0.36 K/uL 03/23/2025 1:49 PM CDT [facility] BASOPHILS ABSOLUTE 0.03 0.01 - 0.08 K/uL 03/23/2025 1:49 PM CDT [facility] IMMATURE GRANULOCYTES ABSOLUTE 0.03 K/uL 03/23/2025 1:49 PM CDT [facility] Blood BLOOD SPECIMEN / Unknown Collection / Unknown 03/23/2025 12:10 PM CDT 03/23/2025 1:47 PM CDT us Lowell Tejada DO HEMATOLOGY ORDERABLES Final R [facility]ult [id number] [address] [place] [address] * TSH (03/23/2025 12:10 PM CDT) Only the most recent of2 resultswithin the time period is included. TSH 1.01 0.27 - 4.20 uIU/mL 03/23/2025 2:19 PM CDT [facility] Blood BLOOD SPECIMEN / Unknown Collection / Unknown 03/23/2025 12:10 PM CDT 03/23/2025 1:47 PM CDT us Lowell Barbe DO CHEMISTRY ORDERABLES Final Re sult [facility] CLIA # [id number] [address] [place] [address] * ETHANOL LEVEL (03/23/2025 12:10 PM CDT) ETHANOL <10.10 <10.10 mg/dL 03/23/2025 2:19 PM CDT [facility] ETHANOL % <0.01 %w/v 03/23/2025 2:19 PM CDT [facility] Blood BLOOD SPECIMEN / Unknown Collection / Unknown 03/23/2025 12:10 PM CDT 03/23/2025 1:47 PM CDT us Lowell Tejada DO CHEMISTRY ORDERABLES Final Re sult Performing Organization Address [facility]/ZIP Co de Phone Number [facility] CLIA # [id number] [address] [place] [address] * ACETAMINOPHEN LEVEL (03/23/2025 12:10 PM CDT) ACETAMINOPHEN LEVEL <5 0 - 30 ug/mL 03/23/2025 2:19 PM CDT [facility] Blood BLOOD SPECIMEN / Unknown Collection / Unknown 03/23/2025 12:10 PM CDT 03/23/2025 1:47 PM CDT Narrative [facility] - 03/23/2025 2:19 PM CDT Therapeutic Range: 10-30 ug/mL The following Acetaminophen levels are associated with possible toxicity: 4 hours after dose >200 ug/mL 8 hours after dose >100 ug/mL 12 hours after dose >50 ug/mL us Lowell Tejada DO CHEMISTRY ORDERABLES Final Re sult [facility] CLIA # [id number] [address] [place] [address] * SALICYLATE LEVEL (03/23/2025 12:10 PM CDT) SALICYLATE LEVEL <0.5 0.0 - 20.0 mg/dL 03/23/2025 2:19 PM CDT [facility] Blood BLOOD SPECIMEN / Unknown Collection / Unknown 03/23/2025 12:10 PM CDT 03/23/2025 1:47 PM CDT Narrative [facility] - 03/23/2025 2:19 PM CDT Negative <3.0 mg/dL Therapeutic 3.0 - 10 mg/dL Toxicity >30 mg/dl Lethal >60 mg/dL Lowell Tejada DO CHEMISTRY ORDERABLES Final Re sult [facility] CLIA # [id number] [address] [place] [address] * (ABNORMAL) COMPREHENSIVE METABOLIC PANEL (03/23/2025 12:10 PM CDT) Only the most recent of4 resultswithin the time period is included. Pathologist [facility] SODIUM 143 136 - 145 mmol/L 03/23/2025 2:19 PM [facility] POTASSIUM 3.7 3.5 - 5.1 mmol/L 03/23/2025 2:19 PM [facility] CHLORIDE 104 98 - 107 mmol/L 03/23/2025 2:19 PM [facility] CO2 26 22 - 29 mmol/L 03/23/2025 2:19 PM [facility] CALCIUM 9.4 8.6 - 10.0 mg/dL 03/23/2025 2:19 PM [facility] BUN 16 6 - 20 mg/dL 03/23/2025 2:19 PM [facility] CREATININE 0.74 0.51 - 0.95 mg/dL 03/23/2025 2:19 PM [facility] GLUCOSE 65(L) 74 - 99 mg/dL 03/23/2025 2:19 PM [facility] TOTAL PROTEIN 7.5 6.6 - 8.7 g/dL 03/23/2025 2:19 PM CDT [facility] ALBUMIN 4.3 3.5 - 5.2 g/dL 03/23/2025 2:19 PM T [facility] BILIRUBIN TOTAL 0.9 0.0 - 1.2 mg/dL 03/23/2025 2:19 PM T [facility] ALKALINE PHOSPHATASE 129(H) 35 - 104 U/L 03/23/2025 2:19 PM T [facility] AST 23 0 - 35 U/L 03/23/2025 2:19 PM T [facility] ALT 22 0 - 35 U/L 03/23/2025 2:19 PM [facility] GFR >60 >=60 mL/min/1.7 3 sq meter 03/23/2025 2:19 PM [facility] Comment:eGFR calculated with 2020 CKD-EPI equation. Vegetarian diet, extremely high or low muscle mass, and may affect results. Cystatin C with Glomerular Filtration Rate is a suitable alternative for these patients. ANION GAP 13 5 - 20 mmol/L 03/23/2025 2:19 PM [facility] Blood BLOOD SPECIMEN / Unknown Collection / Unknown 03/23/2025 12:10 PM CDT 03/23/2025 1:47 PM CDT us Lowell Tejada DO CHEMISTRY ORDERABLES Final Re sult [facility] CLIA # [id number] [address] [place] [id number] * PROTIME-INR (03/20/2025) ABSTRACTED PROTIME 12.7 ABSTRACTED INR 0.89 Blood 03/20/2025 us Abstract Provider HEMATOLOGY ORDERABLES Final Re sult * VITAMIN A LEVEL (03/14/2025 1:21 PM CDT) Pathologist [facility] VITAMIN A LEVEL 45 38 - 98 mcg/dL [facility] Comment: (Note) Clin Chem Vol. 34.No.8. [id number]. 1998 Vitamin supplementation within 24 hours prior to blood draw may affect the accuracy of results. This test was developed and its analytical performance characteristics have been determined by [facility]. It has not been cleared or approved by the FDA. This assay has been validated pursuant to the CLIA regulations and is used for clinical purposes. [facility] [address] [facility] [address] Carlita Grant MD, PhD Test Performed at: [facility] [address] [place] [address], [address] [place] [address] Carlita Grant MD,PhD Blood 03/14/2025 1:21 PM CDT 03/15/2025 2:51 AM CDT Rashmi Wu [facility] CHEMISTRY ORDERABLES Fin al Result [facility] [phone] [facility] [address] [place] [address], [address] [place] [address] * HCG QUANTITATIVE, BLOOD (03/14/2025 1:21 PM CDT) [facility] HCG QUANT, BLOOD <5 mIU/mL [facility] Comment: Gestational Age Expected hCG values (mIU/mL) <1 Week: 5-50 1-2 Weeks: 50-500 2-3 Weeks: 100-5000 3-4 Weeks: 500-84346 4-5 Weeks: 1000-02056 5-6 Weeks: [address] 6-8 Weeks: [address] 2-3 Months: [address] The table above provides only a very [...] or approved by the FDA or the body man of the assay. Test Performed at: [facility] [address] [address] [address] Lino Rosas MD Blood 03/14/2025 1:21 PM CDT 03/15/2025 2:51 AM CDT Rashmi Wu [facility] CHEMISTRY ORDERABLES Fin al Result Performing Organization Address [facility]/ZIP Co de Phone Number [facility] [phone] [facility] [address] [place] [address] * HEMOGLOBIN A1C (03/14/2025 1:21 PM CDT) Pathologist [facility] HEMOGLOBIN A1C 5.2 <5.7 % [facility] Comment: For the purpose of screening for the presence of diabetes: <5.7% Consistent with the absence of diabetes 5.7-6.4% Consistent with increased risk for diabetes (prediabetes) > or =6.5% Consistent with diabetes This assay result is consistent with a decreased risk of diabetes. Currently, no consensus exists regarding use of hemoglobin A1c for diagnosis of diabetes in children. According to [place] Diabetes Association (ADA) guidelines, hemoglobin A1c <7.0% represents optimal control in non- diabetic patients. Different metrics may apply to specific patient populations. Standards of Medical Care in Diabetes(ADA). ESTIMATED AVERAGE GLUCOSE (MG/DL) 103 mg/dL [facility] ESTIMATED AVERAGE GLUCOSE (MMOL/L) 5.7 mmol/L [facility] Comment: Test Performed at: [facility] [address] [address] Lino Rosas MD Blood 03/14/2025 1:21 PM CDT 03/15/2025 2:51 AM CDT Rashmi Wu AGRICULTURAL PRODUCTION ENGINEER CHEMISTRY ORDERABLES Fin al Result Performing Organization Address City/[facility]/ZIP Co de Phone Number [facility] [phone] [facility] [address] [place] [address] * CT ABDOMEN PELVIS W CONTRAST (03/01/2025 [...] but most likely cysts or hemangiomas. Elisa Mullinsdaljit Hay [facility] CT ORDERABLES Final Re sult * CREATININE (03/01/2025 7:58 AM CDT) CREATININE 0.83 0.51 - 0.95 mg/dL 03/01/2025 8:18 AM CDT [facility] GFR >60 >=60 mL/min/1.7 3 sq meter 03/01/2025 8:18 AM CDT [facility] Comment:eGFR calculated with 2020 CKD-EPI equation. Vegetarian diet, extremely high or low muscle mass, and may affect results. Cystatin C with Glomerular Filtration Rate is a suitable alternative for these patients. Blood BLOOD SPECIMEN / Unknown Collection / Unknown 03/01/2025 7:58 AM CDT 03/01/2025 8:03 AM CDT Elisa Hay [facility] CHEMISTRY ORDERABLES Fin al Result Performing Organization Address City/[facility]/ZIP Co de Phone Number [facility] CLIA # [id number] [address] [facility] [address] [place] [address] * POC , URINE (02/22/2025 2:48 PM CDT) HCG QUAL URINE POC Negative Negative, Indeterminate [facility] INTERNAL KIT QC POC Pass Pass [facility] KIT LOT NUMBER POC [id number] [facility] KIT EXP DATE POC 08/28/2026 [facility] Urine 02/22/2025 2:48 PM CDT Elisa MARREROP POINT OF CARE TESTING Fi nal Result Performing Organization Address [facility] Co de Phone Number [facility] CLIA# [id number] [address] [facility] [address] [address] * CERV/VAG CYTO SCREEN PAP RLFX HPV (10/21/2017 11:52 AM [employer]OR[employer]CLE [employer]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 OFFICER) CLINICAL INFORMATION SEE COMMENT 10/26/2017 4:36 PM [employer] OFFICER [facility] Comment:Information not prov ided LAST MENSTRUAL PERIOD SEE COMMENT 10/26/2017 4:36 PM [employer] OFFIC[employer] [facility] Comment:INFORMATION NOT PROV IDED PREV PAP: SEE COMMENT 10/26/2017 4:36 PM [employer] OFFIC[employer] [facility] Comment:INFORMATION NOT PROV IDED PREV BX: SEE COMMENT 10/26/2017 4:36 PM [employer] OFFICER [facility] Comment:INFORMATION NOT PROV IDED SOURCE [employer] 10/26/2017 4:36 PM [employer] OFFIC[employer] [facility] ADEQUACY: SEE COMMENT 10/26/2017 4:36 PM [employer] OFFICER [facility] Comment: Satisfactory for evaluation. Endocervical/transformation zone component present. Age and/or menstrual status not provided PAP INTERP SEE COMMENT 10/26/2017 4:36 PM [employer] OFFIC[employer] [facility] Comment:Negative for intraep ithelial lesion or malignancy. COMMENT SEE COMMENT 10/26/2017 4:36 PM [employer] OFFIC[employer] [facility] Comment: This Pap test has been evaluated with computer assisted technology. QUARTZ MINER: SEE COMMENT 2017 4:36 PM [employer] OFFICER [facility] Comment: BES, CT(ASCP) CT screening location: [place] [address] [address] JASON Jain [address] Genital SWAB OF ENDOCERVIX / Unknown Collection / Unknown 10/21/2017 11:52 AM [employer] OFFICER 10/23/2017 8:49 AM [employer]ICE OFFICER Narrative [facility] - 10/26/2017 4:36 PM [employer] OFFICER Performing Organization Information: Site ID: [facility] Address: [facility] [place] [address] Director: Lino Rosas MD Toshia Rajan MD PATHOLOGY/CYTOLOGY ORDERAB LES Final Result [facility] from Last 3 Months or Most Recently Relevant to Health Maintenance Insurance [place] Care Teams Match Marker Relationship Specialty Start Date End Date Kentrell Ann MD [address] [phone] PCP - General Family Practice 11/30/23
--- OUTSIDE RECORDS SUMMARY | 2025-04-16 15:31 | XMS_ITS | Encounter Summary ---
Author Organization [facility] Address [address] [place] [address] Care Team Providers Care Prn Physical Therapist Name Role Phone Kentrell Ann MD Primary Care Provider [phone] Encounter Details Date Type Department Care Team (Latest Contact Info) Description 10/07/2024 Results Follow-Up [facility] OBVeronica Garcia Sheri [address] [place] [address] Efrain Quinn DO [address] [place] [address] ESTRADIOL, HCG QUANTITATIVE, BLOOD, PROGESTERONE Social History Tobacco Use Types Packs/Day Years Used Date Smoking Tobacco: Never Smokeless Tobacco: Never Alcohol Use Standard Drinks/Week Comments No 0 (1 standard drink = 0.6 oz pur e alcohol) Comments Yes Sex and Gender Information Value Date Recorded Sex Assigned at Not on file 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 Her estrogen is in the normal range. Her HCG and progesterone are very low, which indicates the beginning of a menstrual cycle and nocurrent . INE TOOL OPERATOR documented in this encounter Plan of Treatment Not on file documented as of this encounter Visit Diagnoses Not on filedocumented in this encounter Care Teams Prn Physical Therapist Relationship Specialty Start Date End Date Kentrell Ann MD [address] [phone] PCP - General Family Practice 11/30/23 documented as of this encounter
--- OUTSIDE RECORDS SUMMARY | 2025-04-16 15:31 | XMS_ITS | Encounter Summary ---
Author Organization [facility] Address [address] [place] [address] Care Team Providers Care Lpn Per Diem Name Role Phone Tamiko Christensen MD Primary Care Provid er Reason for Referral * Outpatient Services (Routine) - Closed Specialty Diagnoses / Procedures Referred By Kale richardson Referred To Contact Perinatology Diagnoses At risk for gestational diabetes mellitus Family history of transposition of great vessels Procedures US OB FOLLOW UP PER FETUS Bill Rajan MD Phone: tel: fax: [facility] Maternal and Medicine[address] [place] [address] Phone: tel: fax: Referral ID Status Reason Start Date Expiration Date Visits Requested Visits Authorized [id number] Closed Ordering Department To Schedule 02/11/2018 03/14/2019 1 1 Encounter Details Date Type Department Care Team (Late st Contact Info) Description 02/11/2018 Ancillary Orders [facility] OBGYN-[address] [place] [address] Bill Rajan MD [address] [facility] [place] [phone] At risk for gestational diabetes mellitus; Family [...] on file 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 Name: DEANDRE PRESCOTT Study Date: 02/16/2018 8:12am Pat. NO: [id number] Referring MD: BILL RAJAN Site: [facility] [address] Service Locksmith: Art Alcaraz : 1985 Age: 32 INDICATION Other Condition At risk for gestational diabetes mellitus [Z91.89 (ICD-10-CM)]; Family history of transposition of great vessels [Z82.79 (ICD-10-CM)] CODING Procedures 11788: OB US Follow-up HISTORY OB History 3. [...] 1 lb 13 oz EFW by Hadlock (KKS-QG-AF-FL) Head / Face / Neck Biometry: Cephalic index 0.73 6% Nicolaides Rn Float 3.0 mm Extremities / Bony Struc Biometry: [...] Note Jakob Galeana II, MD - 02/17/2018 [facility] Pat. Name:Stephan PRESCOTT Date:02/16/2018 8:12am Pat. NO: [id number] MD:BILL RAJAN [facility] Alcaraz :1985Age:32 INDICATION Other Condition At risk for gestational diabetes mellitus [Z91.89 (ICD-10-CM)]; Family history of transposition of great vessels [Z82.79 (ICD-10-CM)] CODING Procedures 20952: OB US Follow-up HISTORY OB History 3. [...] 1 lb 13 oz EFW by Hadlock (HFD-VH-PP-FL) Head / Face / Neck Biometry: Cephalic index 0.73 6% Nicolaides Rn Float 3.0 mm Extremities / Bony Struc Biometry: [...] anomalies documented in this encounter Care Teams Lpn Per Diem Relationship Specialty Start Date End Date Tamiko Christensen MD [address] [place] [phone] PCP - General Family Practice 05/14/17 documented as of this encounter
--- OUTSIDE RECORDS SUMMARY | 2025-04-16 15:31 | XMS_ITS | Encounter Summary ---
Author Organization [facility] Address [address] [place] [address] Care Team Providers Care Loop Cutter Name Role Phone Tamiko Christensen MD Primary Care Provid er Reason for Referral * Outpatient Services (Routine) - Closed Specialty Diagnoses / Procedures Referred By Kale richardson Referred To Contact Perinatology Diagnoses At risk for gestational diabetes mellitus History of delivery, currently in second trimester Procedures OB TRANSVAGINAL Toshia Rajan MD Phone: tel: fax: [facility] Maternal and Medicine[address] [place] [address] Phone: tel: fax: Referral ID Status Reason Start Date Expiration Date Visits Requested Visits Authorized [id number] Closed Ordering Department To Schedule 01/18/2018 02/18/2019 1 1 Encounter Details Date Type Department Care Team (Late st Contact Info) Description 01/18/2018 Ancillary Orders [facility] OBGYN-[address] [place] [address] Toshia Rajan MD [address] [facility], [address] [place] [address] At risk for gestational diabetes [...] on file 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
--- OUTSIDE RECORDS SUMMARY | 2025-04-16 15:31 | XMS_ITS | Encounter Summary ---
Author Organization [facility] Address [address] [place] [address] Care Team Providers Care Type Copyist Name Role Phone Tamiko Christensen MD Primary Care Provid er Reason for Referral * Outpatient Services (Routine) - Closed Specialty Diagnoses / Procedures Referred By Kale richardson Referred To Contact Perinatology Diagnoses At risk for gestational diabetes mellitus Family history of transposition of great vessels Procedures ECHO 2D + COLOR FLOW VELOCITY Toshia Rajan MD Phone: tel: fax: [facility] Maternal and Medicine[address] [address] Phone: tel: fax: Referral ID Status Reason Start Date Expiration Date Visits Requested Visits Authorized [id number] Closed Ordering Department To Schedule 01/14/2018 02/14/2019 1 1 * Outpatient Services (Routine) - Closed Specialty Diagnoses / Procedures Referred By Kale richardson Referred To Contact Perinatology Diagnoses At risk for gestational diabetes mellitus Procedures US OB FOLLOW UP PER FETUS Toshia Rajan MD Phone: tel: fax: [facility] Medicine[address] [place] [address] Phone: tel: fax: Referral ID Status Reason Start Date Expiration Date Visits Requested Visits Authorized [id number] Closed Ordering Department To Schedule 01/14/2018 02/14/2019 1 1 * Outpatient Services (Routine) - Closed Specialty Diagnoses / Procedures Referred By Kale t Referred To Contact Perinatology Diagnoses At risk for gestational diabetes mellitus Procedures US OB FOLLOW UP PER FETUS Toshia Rajan MD Phone: tel: fax: [facility] Medicine[address] [place] [address] Phone: tel: fax: Referral ID Status Reason Start Date Expiration Date Visits Requested Visits Authorized [id number] Closed Ordering Department To Schedule 01/14/2018 02/14/2019 1 1 Encounter Details Date Type Department Care Team (Late st Contact Info) Description 01/14/2018 Ancillary Orders [facility] OBGYN[address] [place] [address] Toshia Rajan MD [address] [facility], [facility] [address] [place] [address] At risk for gestational diabetes [...] on file 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 Name: SANDRA PRESCOTT Study Date: 04/12/2018 10:35am Pat. NO: [id number] Referring MD: TOSHIA RAJAN Site: [facility] Correspondence Coordinator: Marlys Jones : 1985 Age: 32 INDICATION Maternal Hypertension, Chronic CODING Procedures 60533: OB US Follow-up HISTORY OB History 3. [...] 4 lb 9 oz EFW by Hadlock (UOA-TT-LT-FL) Head / Face / Neck Biometry: Cephalic index 0.79 44% Jeramie Mining Teacher 6.1 mm Extremities / Bony Struc Biometry: [...] Note Jakob Galeana II, MD - 04/12/2018 [place] Pat. Name:Stephan PRESCOTT Date:04/12/2018 10:35am Pat. NO: [id number] MD:TOSHIA RAJAN Site:[place] MFMSonographer:Marlys Jones :1985Age:32 INDICATION Maternal Hypertension, Chronic CODING Procedures 37798: OB US Follow-up HISTORY OB History 3. [...] 4 lb 9 oz EFW by Hadlock (BSL-HC-BK-FL) Head / Face / Neck Biometry: Cephalic index 0.7944% Nicolaides Mining Teacher 6.1 mm Extremities / Bony Struc Biometry: [...] gestational age Narrative 03/15/2018 4:30 PM T [place] [facility] Pat. Name: SANDRA PRESCOTT Study Date: 03/15/2018 8:23am Pat. NO: [id number] Referring MD: TOSHIA RAJAN Site: [facility] Correspondence Coordinator: Karina Seymour : 1985 Age: 32 INDICATION Other Condition Dx: At risk for gestational diabetes mellitus [Z91.89 (ICD-10-CM)] CODING Diagnosis XXX.10: Other condition Z3A.28: Weeks Gestation of Procedures 77011: OB US Follow-up HISTORY OB History 3. [...] 3 lb 2 oz EFW by Hadlock (MJE-EI-SL-FL) Head / Face / Neck Biometry: Cephalic index 0.75 12% Nicolaides Mining Teacher 5.7 mm Extremities / Bony Struc Biometry: [...] Kervin URIBE, Jakob Ornelas MD - 03/15/2018 [place] Pat. Name:Stephan PRESCOTT Date:03/15/2018 8:23am Pat. NO: [id number] MD:TOSHIA RAJAN [facility] Seymour :1985Age:32 INDICATION Other Condition Dx: At risk for gestational diabetes mellitus [Z91.89 (ICD-10-CM)] CODING Diagnosis XXX.10: Other condition Z3A.28: Weeks Gestation of Procedures 03559: OB US Follow-up HISTORY OB History 3. [...] 3 lb 2 oz EFW by Hadlock (XFI-XM-LK-FL) Head / Face / Neck Biometry: Cephalic index 0.7512% Nicolaides Mining Teacher 5.7 mm Extremities / Bony Struc Biometry: [...] INTERFACE SYSTEM - 02/17/2018 8:27 AM T [place] [facility] Pat. Name: SANDRA PRESCOTT Study Date: 02/16/2018 8:22am Pat. NO: [id number] Referring MD: TOSHIA RAJAN Site: [facility] Correspondence Coordinator: Art Alcaraz : 1985 Age: 32 INDICATION Other Condition At risk for gestational diabetes mellitus [Z91.89 (ICD-10-CM)]; Family history of transposition of great vessels [Z82.79 (ICD-10-CM CODING Procedures 01463: Echo 2D 49965: Echo Spectral Doppler 80613: Doppler Color Flow Mapping HISTORY OB History [...] subcostal LVOT view normal RVOT view normal 9-lyocsu-uvephln view normal, 3 vessel and 3 vessel [...] Note Jakob Galeana II, MD - 02/17/2018 [place] [facility] Pat. Name:Stephan PRESCOTT Date:02/16/2018 8:22am Pat. NO: [id number] MD:TOSHIA RAJAN Site:[place] MFMSonographer:Art Alcaraz :1985Age:32 INDICATION Other Condition At risk for gestational diabetes mellitus [Z91.89 (ICD-10-CM)]; Family history of transposition of great vessels [Z82.79 (ICD-10-CM CODING Procedures 48492: Echo 2D 82232: Echo Spectral Doppler 10582: Doppler Color Flow Mapping HISTORY OB History [...] subcostal LVOT view normal RVOT view normal 6-mmicct-wrfrsjz view normal, 3 vessel and 3 vessel [...] mellitus documented in this encounter Care Teams Type Copyist Relationship Specialty Start Date End Date Tamiko Christensen MD [address] [place] [address] PCP - General Family Practice 05/14/17 documented as of this encounter
--- OUTSIDE RECORDS SUMMARY | 2025-04-16 15:31 | XMS_ITS | Encounter Summary ---
Author Organization [facility] Address 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
--- OUTSIDE RECORDS SUMMARY | 2025-04-16 15:31 | XMS_ITS | Encounter Summary ---
Author Organization [facility] Address [address] [place] [address] Care Team Providers Care Escalation Engineer Name Role Phone Tamiko Christensen MD Primary [...] FETUSES Toshia Rajan MD Phone: tel: fax: [facility] Maternal and Medicine[address] [place] [address] Phone: tel: fax: Referral ID Status Reason Start Date Expiration Date Visits Requested Visits Authorized [id number] Closed Ordering Department To Schedule 04/09/2018 05/10/2019 [...] FETUSES Toshia Rajan MD Phone: tel: fax: [facility] Maternal and [address] [address] Phone: tel: fax: Referral ID Status Reason Start Date Expiration Date Visits Requested Visits Authorized [id number] Closed Ordering Department To Schedule 04/09/2018 05/10/2019 [...] FETUSES Toshia Rajan MD Phone: tel: fax: [facility] and [address] [address] Phone: tel: fax: Referral ID Status Reason Start Date Expiration Date Visits Requested Visits Authorized [id number] Closed Ordering Department To Schedule 04/09/2018 05/10/2019 [...] Toshia Rajan MD Phone: tel: fax: [facility] [address] [address] Phone: tel: fax: Referral ID Status Reason Start Date Expiration Date Visits Requested Visits Authorized [id number] Closed Ordering Department To Schedule 04/09/2018 05/10/2019 1 1 * Outpatient Services (Routine) - Closed Specialty Diagnoses / Procedures Referred By Contac t Referred To Contact Perinatology Diagnoses HTN (hypertension), benign Diet controlled gestational diabetes mellitus (GDM) in third trimester Asthma, unspecified asthma severity, unspecified whether complicated, unspecified whether persistent Procedures US OB FOLLOW UP PER FETUS Toshia Rajan MD Phone: tel: fax: [facility] Medicine[address] [place] [address] Phone: tel: fax: Referral ID Status Reason Start Date Expiration Date Visits Requested Visits Authorized [id number] Closed Ordering Department To Schedule 04/09/2018 05/10/2019 1 1 Encounter Details Date Type Department Care Team (Late st Contact Info) Description 04/09/2018 Ancillary Orders [facility] OBGYN[address] [place] [address] Toshia Rajan MD [address] [facility], [address] [place] [address] HTN (hypertension), benign; Diet controlled [...] on file 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 Name: SANDRA PRESCOTT Study Date: 05/17/2018 10:50am Pat. NO: [id number] Referring MD: TOSHIA RAJAN Site: [facility] Bench Assembler: Marlys Jones : 1985 Age: 32 INDICATION Other Condition Dx: HTN (hypertension), benign [I10 (ICD-10-CM)]; Diet controlled gestational diabetes mellitus (GDM) in third trimester [O24.410 (ICD-10-CM)]; Asthma, unspecified asthma severity, unspecified whether complicated, unspecified whether persistent [J45.909 (ICD-10-CM)] CODING Diagnosis XXX.10: Other condition Z3A.37: Weeks Gestation of Procedures 29090: Limited OB Ultrasound HISTORY OB History 3. [...] Note Jakob Galeana II, MD - 05/17/2018 [facility] Pat. Name:BASIL PRESCOTTAna Maria Date:05/17/2018 10:50am Pat. NO: [id number] MD:TOSHIA RAJAN Site:[place] MFMSonographer:Marlys Jones :1985Age:32 INDICATION Other Condition Dx: HTN (hypertension), benign [I10 (ICD-10-CM)]; Diet controlled gestational diabetes mellitus (GDM) in third trimester [O24.410 (ICD-10-CM)]; Asthma, unspecified asthma severity, unspecified whether complicated, unspecified whether persistent [J45.909 (ICD-10-CM)] CODING Diagnosis XXX.10: Other condition Z3A.37: Weeks Gestation of Procedures 30490: Limited OB Ultrasound HISTORY OB History 3. [...] biophysical profile Narrative 05/10/2018 3:07 PM T [place] [facility] Pat. Name: SANDRA PRESCOTT Study Date: 05/10/2018 10:18am Pat. NO: [id number] Referring MD: TOSHIA RAJAN Site: [facility] Bench Assembler: Francy Ross : 1985 Age: 32 INDICATION Maternal Hypertension, Chronic Diabetes - Gestational (unspecified) Maternal Asthma CODING Diagnosis O10.013: Pre-existing essential hypertension complicating O24.419: Gestational diabetes mellitus in , unspecified control O99.513: Diseases of the respiratory system complicating Z3A.36: Weeks Gestation of Procedures 69843: OB US Follow-up HISTORY OB History 3. [...] 7 lb 1 oz EFW by Hadlock (QSL-ON-DN-FL) Head / Face / Neck Biometry: Cephalic [...] Note Jakob Galeana II, MD - 05/10/2018 [facility] [facility] Pat. Name:Stephan PRESCOTT Date:05/10/2018 10:18am Pat. NO: [id number] MD:TOSHIA RAJAN [facility] Ross :1985Age:32 INDICATION Maternal Hypertension, Chronic Diabetes - Gestational (unspecified) Maternal Asthma CODING Diagnosis O10.013: Pre-existing essential hypertension complicating O24.419: Gestational diabetes mellitus in , unspecified control O99.513: Diseases of the respiratory system complicating Z3A.36: Weeks Gestation of Procedures 14306: OB US Follow-up HISTORY OB History 3. [...] 7 lb 1 oz EFW by Hadlock (QHE-WE-ED-FL) Head / Face / Neck Biometry: Cephalic [...] biophysical profile Narrative 05/03/2018 4:49 PM CDT [facility] [facility] Pat. Name: SANDRA PRESCOTT Study Date: 05/03/2018 1:56pm Pat. NO: [id number] Referring MD: TOSHIA RAJAN Site: [facility] Bench Assembler: Marlys Jones : 1985 Age: 32 INDICATION Other Condition Dx: HTN (hypertension), benign [I10 (ICD-10-CM)]; Diet controlled gestational diabetes mellitus (GDM) in third trimester [O24.410 (ICD-10-CM)]; Asthma, unspecified asthma severity, unspecified whether complicated, unspecified whether persistent [J45.909 (ICD-10-CM)] CODING Diagnosis XXX.10: Other condition Z3A.35: Weeks Gestation of Procedures 37195: Limited OB Ultrasound HISTORY OB History 3. [...] Kervin URIBE, Jakob Ornelas MD - 05/03/2018 [facility] Pat. Name:Stephan PRESCOTT Date:05/03/2018 1:56pm Pat. NO: [id number] :TOSHIA CUELLARBONS [facility]arly[facility] Jones :1985Age:32 INDICATION Other Condition Dx: HTN (hypertension), benign [I10 (ICD-10-CM)]; Diet controlled gestational diabetes mellitus (GDM) in third trimester [O24.410 (ICD-10-CM)]; Asthma, unspecified asthma severity, unspecified whether complicated, unspecified whether persistent [J45.909 (ICD-10-CM)] CODING Diagnosis XXX.10: Other condition Z3A.35: Weeks Gestation of Procedures 08184: Limited OB Ultrasound HISTORY OB History 3. [...] biophysical profile Narrative 04/26/2018 5:03 PM CDT [facility] Pat. Name: SANDRA PRESCOTT Study Date: 04/26/2018 11:02am Pat. NO: [id number] Referring MD: TOSHIA RAJAN Site: [facility] Bench Assembler: Marlys Jones : 1985 Age: 32 INDICATION Other Condition Dx: HTN (hypertension), benign [I10 (ICD-10-CM)]; Diet controlled gestational diabetes mellitus (GDM) in third trimester [O24.410 (ICD-10-CM)]; CODING Diagnosis XXX.10: Other condition Z3A.34: Weeks Gestation of Procedures 03497: Limited OB Ultrasound HISTORY OB History 3. [...] Kervin URIBE, Jakob Ornelas MD - 04/26/2018 [facility] Pat. Name:ASNDRA PRESCOTTZan Date:04/26/2018 11:02am Pat. NO: [id number] MD:TOSHIA RAJAN Site:[place] MFMSonographer:Marlys Jones :1985Age:32 INDICATION Other Condition Dx: HTN (hypertension), benign [I10 (ICD-10-CM)]; Diet controlled gestational diabetes mellitus (GDM) in third trimester [O24.410 (ICD-10-CM)]; CODING Diagnosis XXX.10: Other condition Z3A.34: Weeks Gestation of Procedures 26841: Limited OB Ultrasound HISTORY OB History 3. [...] biophysical profile Narrative 04/19/2018 4:25 PM CDT [facility] [facility] Pat. Name: SANDRA PRESCOTT Study Date: 04/19/2018 11:51am Pat. NO: [id number] Referring MD: TOSHIA RAJAN Site: [facility] Bench Assembler: Malrys Jones : 1985 Age: 32 INDICATION Diabetes - Gestational (insulin) CODING Diagnosis O24.414: Gestational diabetes mellitus in , insulin controlled Z3A.33: Weeks Gestation of Procedures 94890: Limited OB Ultrasound HISTORY OB History 3. [...] Note Jakob Galeana II, MD - 04/19/2018 [facility] Name:Stephan PRESCOTT Date:04/19/2018 11:51am Pat. NO: [id number] MD:TOSHIA RAJAN [facility]Marly[facility] :1985Age:32 INDICATION Diabetes - Gestational (insulin) CODING Diagnosis O24.414: Gestational diabetes mellitus in , insulin controlled Z3A.33: Weeks Gestation of Procedures 33352: Limited OB Ultrasound HISTORY OB History 3. [...] persistent documented in this encounter Care Teams Escalation Engineer Relationship Specialty Start Date End Date Tamiko Christensen MD [address] [id number] PCP - General Family Practice 05/14/17 documented as of this encounter
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
--- OUTSIDE RECORDS SUMMARY | 2025-04-16 15:32 | XMS_ITS | Patient Health Record ---
Author Organization [facility] [employer] Address [address] [place], [place] [id number] Care Team Providers Care Teacher Citizenship Name Role Phone Kentrell Ann MD Primary Care Provider Unavailivone Boo MD, Tavon Unavailable [phone] Xena Horton DO Unavailable Unavailable Allergies Allergen [...] 07:49:17 AM Interpretation:Consistent Performing Lab: Notes/Report: Consistent Embedded PDF Reviewed date:11/21/2024 09:25:53 AM Interpretation: Performing Lab: Notes/Report: Para-fluorofentanyl: Fentanyl Negative. Acetyl fentanyl: Fentanyl Negative. Apolinar tyl norfentanyl: Fentanyl Negative. Acryl fentanyl: Fentanyl Negative. Carfentan [place]: [place], [address], [facility], [place] [address], , L ab Director: Renata Damico MD, CLIA ID# [id number] [employer] Results Reviewed date:11/21/2024 09:25:45 AM Interpretation: Performing Lab:[id number] [facility] [address] [facility] [address] Renata Damico MD Notes/Report: [facility], [address], [place] [address], , L ab Director: Renata Damico MD, CLIA ID# [id number] OPIATES SCREEN negative 300 ng/mL Codeine Quantification [...] 200 ng/mL Tramadol Quantification positive-470.442 100 ng/mL R-psyndmbqb-wtqmuljv Quantification positive-7635.698 100 ng/mL J-Epwutyvwm-Evwhlzbr Quantification negative 100 n g/mL Tapentadol Quantification negative 50 ng/mL BENZODIAZEPINES SCREEN negative 200 ng/mL Alpha-Hydroxyalprazolam Quantification negative 20 ng/mL 5-Qefrt-Zqthpbmpqq Quantification negative 20 ng/m L Lorazepam Quantification [...] 10 ng/mL Flubromazolam Quantification negative 10 ng/mL XPG642 metabolite Quantification negative 10 ng/mL UPT344 metabolite Quantification negative 10 ng/mL RCS4 metabolite Quantification negative 10 ng/mL XLR11/UR144 metabolite negative 10 ng/mL 5F-ADB-M7 negative 10 ng/mL SM-KLPVISEX-R7 negative 10 ng/mL HXHW-GXKAHSAG-A2 negative 10 ng/mL Eutylone Quantification negative 10 ng/mL Methylone Quantification negative 3 ng/mL Xylazine Quantification negative 10 ng/mL 4-hydroxy Xylazine Quantification negative 10 ng/m L Mitragynine (Kratom alkaloid) Quantification negative 1 ng/mL 8-UY-Gsmgnbxhqsh (Kratom alk aloid) Quantification negative 1 ng/mL CREATININE normal-120.0 >20 mg/dL mg/dL OXIDANT normal-0 <200 ug/mL ug/mL PH normal-7.5 4.5 - 9.5 SPECIFIC GRAVITY normal-1.016 1.003 - 1.035 Embedded PDF Reviewed date:08/01/2024 07:48:57 AM Interpretation: Performing Lab: [place]/Report: [place], [address], [place] [address], , L ab Director: Renata Damico MD, CLIA ID# [id number] [facility] Results Reviewed date:08/01/2024 07:48:48 AM Interpretation: Performing Lab:[id number] [facility], [address] [facility] [address] Renata Damico MD Notes/Report: [facility], [address] [address] [facility], [facility] [address], [place] [address], , L ab Director: Renata Damico MD, CLIA ID# [id number] OPIATES SCREEN negative 300 ng/mL OXYCODONE SCREEN negative 100 ng/mL Oxymorphone Quantification negative 50 ng/mL BUPRENORPHINE SCREEN negative 10 ng/mL FENTANYL SCREEN negative 2 ng/mL METHADONE SCREEN negative 300 ng/mL TRAMADOL SCREEN negative 200 ng/mL Tramadol Quantification negative 100 ng/mL E-utejdatdh-jmydmxpd Quantification negative 100 n g/mL T-Ajyjanyft-Osloazeg Quantification negative 100 n g/mL Tapentadol Quantification [...] 10 ng/mL Flubromazolam Quantification negative 10 ng/mL PVE345 metabolite Quantification negative 10 ng/mL CSS514 metabolite Quantification negative 10 ng/mL RCS4 metabolite Quantification negative 10 ng/mL XLR11/UR144 metabolite negative 10 ng/mL 5F-ADB-M7 negative 10 ng/mL ZG-DPNBBQQN-V0 negative 10 ng/mL LWEO-HJCZULWM-B9 negative 10 ng/mL Eutylone Quantification negative 10 ng/mL Methylone Quantification negative 3 ng/mL Xylazine Quantification negative 10 ng/mL 4-hydroxy Xylazine Quantification negative 10 ng/m L Mitragynine (Kratom alkaloid) Quantification negative 1 ng/mL 3-ZR-Nyytohurogy (Kratom alk aloid) Quantification negative 1 ng/mL CREATININE normal-308.1 >20 mg/dL mg/dL OXIDANT normal-0 <200 ug/mL ug/mL PH normal-5.7 4.5 - 9.5 SPECIFIC GRAVITY normal-1.028 1.003 - 1.035 Urine tox screen / MS if ind icated Reviewed date:11/21/2024 09:26:11 AM Interpretation:Consistent Performing Lab: Notes/Report: Consistent Urine tox screen / MS if ind icated Reviewed date:11/21/2024 09:26:11 AM Interpretation:Consistent Performing Lab: Notes/Report: Consistent Reason For Referral Reason Evaluation for possi ble treatment (clinic closing due to provider's nursing home) Diagnosis 1 Vertebrogenic low ba ck pain (M54.51) Diagnosis 2 Spondylosis without myelopathy or radiculopathy, lumbar region (M47.816) Diagnosis 3 Spinal stenosis, lum bar region with neurogenic claudication (M48.062) Referral Organization [facility] Referring Provider First Name Tavon Referring Provider [...] W/U Status Risk Notes Problem Solitary sacroiliitis (455075012) Sacroiliitis, not elsewhere classified (M46.1) Active confirmed Problem Lumbosacral spondylosis without myelopathy (17115397) Spondylosis without myelopathy or radiculopathy, lumbar region (M47.816) Active confirmed partial sacralization of L5 with left L5-S1 transverse process pseudo articulation as per CT scan report (indicating possible transitional L5 vertebra: transitional anatomy noted via subsequent fluoroscopy) Problem High risk drug monitoring status (942910405) terminal supervisor (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 analgesic (Z79.891) Active confirmed Problem Anxiety disorder (195495064) Other specified anxiety disorders (F41.8) Active confirmed Problem Hypersomnia (78795289) Hypersomnia, unspecified (G47.10) Active confirmed Problem Obstructive sleep apnea syndrome (47613954) Obstructive sleep apnea (adult) (pediatric) (G47.33) Active confirmed Problem Chronic pain (89893713) Other chronic pain (G89.29) Active confirmed Problem Cervicalgia (46661637) Cervicalgia (M54.2) Active confirmed Problem Pain in thoracic spine (708309575) Pain in thoracic spine (M54.6) Active confirmed Problem Backache (746592752) Dorsalgia, unspecified (M54.9) Active confirmed Problem Fibromyalgia (892238743) Fibromyalgia (M79.7) Active confirmed Problem Long-term current use of drug therapy (412121582) Other press tender long goods (current) drug therapy (Z79.899) Active confirmed Problem Neurogenic claudication (813466113) Spinal stenosis, lumbar region with neurogenic claudication (M48.062) Active confirmed Problem Myalgia (44738010) Myalgia of auxiliary muscles, head and neck (M79.12) Active confirmed Problem Muscle pain (66953912) Myalgia, other site (M79.18) Active confirmed Problem Headache (67020210) Headache, unspecified (R51.9) Active confirmed Problem Pain in lumbar spine (791796687) Vertebrogenic low back pain (M54.51) Active confirmed Vital Signs Temperature 97.8 degrees Fahrenheit 01/05/2025 Blood pressure diastolic 81 mm Hg 01/05/2025 Oximetry 100 % 01/05/2025 Height 64 in 01/05/2025 Blood pressure systolic 115 mm Hg 01/05/2025 Weight 170.2 lbs 01/05/2025 BMI 29.21 kg/m2 01/05/2025 Encounters Encounter Location Date Provider Diagnosis [facility] [place] [address] [employer] [place], [place] [id number] 05/17/2024 Tavon Boo Myalgia of auxiliary muscles, head and neck M79.12 ; Headache, unspecified R51.9 ; Sacroiliitis, not elsewhere classified M46.1 ; Spondylosis without myelopathy or radiculopathy, lumbar region M47.816 ; Other chronic pain G89.29 ; Myalgia, other site M79.18 ; Vertebrogenic low back pain M54.51 and Obstructive sleep apnea (adult) (pediatric) G47.33 [facility] [address] [employer] [address] [place], [place] [id number] 05/31/2024 Tavon Boo Procedure and treatment not carried out because of patient's decision for unspecified reasons Z53.20 [facility] [place] [address] [employer] [place], [place] [id number] 07/27/2024 Tavon Boo Myalgia of auxiliary muscles, head and neck M79.12 ; Headache, unspecified R51.9 ; Sacroiliitis, not elsewhere classified M46.1 ; Spondylosis without myelopathy or radiculopathy, lumbar region M47.816 ; Other chronic pain G89.29 ; Myalgia, other site M79.18 ; Vertebrogenic low back pain M54.51 ; Obstructive sleep apnea (adult) (pediatric) G47.33 and penitentiary (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 analgesic Z79.891 [facility] [address] [place], [place] [phone] 08/10/2024 Tavon Boo Myalgia of auxiliary muscles, head and neck M79.12 ; Headache, unspecified R51.9 ; Sacroiliitis, not elsewhere classified M46.1 ; Spondylosis without myelopathy or radiculopathy, lumbar region M47.816 ; Other chronic pain G89.29 ; Myalgia, other site M79.18 ; Vertebrogenic low back pain M54.51 and Obstructive sleep apnea (adult) (pediatric) G47.33 [facility] [place] [address] [employer] [place], [place] [phone] 08/24/2024 Tavon Boo Myalgia of auxiliary muscles, head and neck M79.12 ; Headache, unspecified R51.9 ; Sacroiliitis, not elsewhere classified M46.1 ; Spondylosis without myelopathy or radiculopathy, lumbar region M47.816 ; Other chronic pain G89.29 ; Myalgia, other site M79.18 ; Vertebrogenic low back pain M54.51 and Obstructive sleep apnea (adult) (pediatric) G47.33 [facility] [address] [employer] [address] [place], [place] [phone] 10/05/2024 Tavon Boo Myalgia of auxiliary muscles, head and neck M79.12 ; Headache, unspecified R51.9 ; Sacroiliitis, not elsewhere classified M46.1 ; Spondylosis without myelopathy or radiculopathy, lumbar region M47.816 ; Other chronic pain G89.29 ; Myalgia, other site M79.18 ; Vertebrogenic low back pain M54.51 and Obstructive sleep apnea (adult) (pediatric) G47.33 [facility] [address] [employer] [address] [place], [place] [phone] 11/16/2024 Tavon Boo Other chronic pain G89.29 ; Vertebrogenic low back pain M54.51 ; Myalgia of auxiliary muscles, head and neck M79.12 ; Headache, unspecified R51.9 ; Sacroiliitis, not elsewhere classified M46.1 ; Spondylosis without myelopathy or radiculopathy, lumbar region M47.816 ; Myalgia, other site M79.18 ; Obstructive sleep apnea (adult) (pediatric) G47.33 and terminal supervisor (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 analgesic Z79.891 [facility] [address] [place], [place] [phone] 11/23/2024 Tavon Boo Spondylosis without myelopathy or radiculopathy, lumbar region M47.816 ; Other specified anxiety disorders F41.8 ; Myalgia of auxiliary muscles, head and neck M79.12 ; Headache, unspecified R51.9 ; Other chronic pain G89.29 ; Myalgia, other site M79.18 ; Vertebrogenic low back pain M54.51 ; Sacroiliitis, not elsewhere classified M46.1 and Obstructive sleep apnea (adult) (pediatric) G47.33 [facility] [address] [place] [address] 12/05/2024 Tavon Boo Spondylosis without myelopathy or radiculopathy, lumbar region M47.816 and Other specified anxiety disorders F41.8 [facility] [address] [place] [phone] 01/05/2025 Tavon Boo Other chronic pain G89.29 ; Vertebrogenic low back pain M54.51 ; Myalgia, other site M79.18 and Obstructive sleep apnea (adult) (pediatric) G47.33 [facility] [address] [place] [id number] 07/13/2024 Tavon Boo [facility], [address] [phone] 11/17/2024 Tavon Boo [facility] [address] [place] [id number] 12/19/2024 Tavon Boo [facility], [address] [id number] 01/26/2025 Tavon Boo Assessments Encounter Date Diagnosis (ICD Code) Assessment Notes Treatment Notes Treatment Clinical Notes Section Notes 10/05/2024 Myalgia of auxiliary muscles, head and neck (ICD-10 - M79.12) TPI sessions with history of benefits that have been appreciated by patient. The benefits have included myalgia relief and headache relief. Plan TPIs at today's visit. 08/24/2024 Myalgia of auxiliary muscles, head and [...] L4 medial branch and L5 dorsal ramus. 11/23/2024 Spondylosis without myelopathy or radiculopathy, lumbar [...] headache relief. Plan TPIs at today's visit. 05/31/2024 Procedure and treatment not carried out because of patient's decision for unspecified reasons (ICD-10 - Z53.20) 07/27/2024 Headache, unspecified (ICD-10 - R51.9) Headache [...] have included myalgia relief and headache relief. 11/23/2024 Myalgia of auxiliary muscles, head and [...] Flexeril for her spasms. Plan to continue. 08/24/2024 Headache, unspecified (ICD-10 - R51.9) Headache benefit has been appreciated by patient post TPIs targeting upper cervical region. 08/10/2024 Sacroiliitis, not elsewhere classified (ICD-10 - M46.1) Previous bilateral sacral denervation procedure via RFA completed with maintained efficacy appreciated by patient for 7 months; repeat procedure completed with maintained good benefit as of 08/10/24. 10/05/2024 Headache, unspecified (ICD-10 - R51.9) Headache benefit has been appreciated by patient post TPIs targeting upper cervical region. 10/05/2024 Sacroiliitis, not elsewhere classified (ICD-10 - M46.1) Previous bilateral sacral denervation procedure via RFA completed with maintained efficacy appreciated by patient for 7 months; repeat procedure completed with maintained good benefit as of today. 08/24/2024 Sacroiliitis, not elsewhere classified (ICD-10 - [...] procedure with maintained efficacy as of 08/10/24. 01/05/2025 Obstructive sleep apnea (adult) (pediatric) (ICD-10 [...] procedure with maintained efficacy as of 05/17/24. 11/16/2024 Headache, unspecified (ICD-10 - R51.9) Headache benefit has been appreciated by patient post TPIs targeting upper cervical region. 07/27/2024 Sacroiliitis, not elsewhere classified (ICD-10 - M46.1) Previous bilateral sacral denervation procedure via RFA completed with maintained efficacy appreciated by patient for 7 months; repeat procedure completed and patient states today significant benefit which has been maintained. 07/27/2024 Spondylosis without myelopathy or radiculopathy, lumbar [...] Plan to continue oral opioid medication management. 11/23/2024 Other chronic pain (ICD-10 - G89.29) Patient reports moderate benefit from current Tylenol #3 once a day dosing. Patient desires an increase in dosage for her once a day dosing. Plan to continue oral opioid medication management with a dosage titration. 11/16/2024 Sacroiliitis, not elsewhere classified (ICD-10 - M46.1) Previous bilateral sacral denervation procedure via RFA completed with maintained efficacy appreciated by patient for 7 months; repeat procedure completed with maintained good benefit for another 7 months, up until recently. Will consider additional sacral interventional treatment when such treatment is desired by patient. 08/10/2024 Other chronic pain (ICD-10 - G89.29) [...] maintained good benefit as of 08/24/24. 10/05/2024 Spondylosis without myelopathy or radiculopathy, lumbar region (ICD-10 - M47.816) partial sacralization of L5 with left L5-S1 transverse process pseudo articulation as per CT scan report (indicating possible transitional L5 vertebra: transitional anatomy noted via subsequent fluoroscopy) Prior lumbar RFA procedures with history of efficacy appreciated by patient. Most recent lumbar RFA procedure with maintained good benefit as of today. 10/05/2024 Other chronic pain (ICD-10 - G89.29) Decreased pain medication use has been reported by patient due to and efficacious interventional treatment. 08/24/2024 Other chronic pain (ICD-10 - G89.29) Decreased pain medication use reported by patient due to and efficacious interventional treatment. 08/10/2024 Myalgia, other site (ICD-10 - M79.18) TPIs with history of short term benefit appreciated by patient. Oral relaxant medication has been discontinued by patient due to . 11/16/2024 Spondylosis without myelopathy or radiculopathy, lumbar region (ICD-10 - M47.816) partial sacralization of L5 with left L5-S1 transverse process pseudo articulation as per CT scan report (indicating possible transitional L5 vertebra: transitional anatomy noted via subsequent fluoroscopy) Prior lumbar RFA procedures with history of efficacy appreciated by patient. Most recent lumbar RFA procedure with maintained good benefit. 11/23/2024 Myalgia, other site (ICD-10 - M79.18) TPIs with history of efficacy appreciated by patient. Flexeril with history of benefit. Plan to refill Flexeril at today's visit. 05/17/2024 Myalgia, other site (ICD-10 - M79.18) TPIs with history of short term benefit appreciated by patient. Oral relaxant medication use with history of benefit. Plan to continue medication management. 07/27/2024 Other chronic pain (ICD-10 - G89.29) Patient reports not utilizing her pain medicine regularly while she is . She said she may utilize it when she has her tooth extracted. 07/27/2024 Myalgia, other site (ICD-10 - M79.18) [...] - M54.51) Chronic axial lumbosacral spine pain. 08/10/2024 Vertebrogenic low back pain (ICD-10 - M54.51) Chronic axial lumbosacral spine pain. Maintained improvement noted post most recent lumbar and sacral RFA procedures. 08/24/2024 Myalgia, other site (ICD-10 - M79.18) TPIs with history of short term benefit appreciated by patient. Oral relaxant medication has been discontinued by patient due to . 10/05/2024 Myalgia, other site (ICD-10 - M79.18) TPIs with history of efficacy appreciated by patient. Oral relaxant medication has been discontinued by patient due to . 10/05/2024 Vertebrogenic low back pain (ICD-10 - [...] recent lumbar and sacral RFA procedures, below. 11/23/2024 Sacroiliitis, not elsewhere classified (ICD-10 - [...] confirms nightly use of her CPAP device. 05/17/2024 Obstructive sleep apnea (adult) (pediatric) (ICD-10 [...] most recent lumbar and sacral RFA procedures. 07/27/2024 Obstructive sleep apnea (adult) (pediatric) (ICD-10 - G47.33) Updated sleep study completed 04/15/22. The report revealed an AHI = 14 plus nocturnal hypoxemia. CPAP titration study revealed an AHI = 2 at the optimum pressure setting. Patient reports of continued compliance with use of her CPAP device. 11/16/2024 terminal supervisor (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 analgesic (ICD-10 - Z79.891) 2022 opioid (OUD) risk tool score = 4. This places the patient in the high risk category, warranting more frequent screening. Plan 2 month visit pending continued compliance with patient's Treatment Agreement. Plan urine toxicology screen today with [facility] to monitor for presence of any unprescribed or illicit controlled substance(s), as well as prescribed tramadol (unable to test for tramadol in-office). 11/23/2024 Obstructive sleep apnea (adult) (pediatric) (ICD-10 [...] based upon her assessment of device efficacy. 08/24/2024 Obstructive sleep apnea (adult) (pediatric) (ICD-10 - G47.33) Updated sleep study completed 04/15/22. The report revealed an AHI = 14 plus nocturnal hypoxemia. CPAP titration study revealed an AHI = 2 at the optimum pressure setting. Patient reports of continued compliance with use of her CPAP device as of 08/24/24. 10/05/2024 Obstructive sleep apnea (adult) (pediatric) (ICD-10 - G47.33) Patient reports of continued compliance with use of her CPAP device as of 10/05/24 07/27/2024 penitentiary (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 analgesic (ICD-10 - Z79.891) 2022 opioid (OUD) risk tool score = 4. This places the patient in the high risk category, warranting more frequent screening. Plan [facility] to monitor for presence of any unprescribed [...] clinic is closing due to Dr. Boo's nursing home; see scanned document. Terminal prescriptions were given [...] office was notified by pharmacy via Cover My Meds that prescription for tramadol was denied [...] End Date [place] [employer] [address] [place] [id number] Sandra Florez Self - patient is the [...] History Surgery Date(Month/Year) Breast reduction, performed in [place] , [place], 2007 Panniculectomy, performed at [facility] in [place], [place], 2013 Cholecystectomy, performed at [facility] in [place], [place], 2016 Hernia repair, performed at [facility], 2011, 2 020 Endoscopy with biopsy of sma ll intestine, performed at [facility] by Dr. Clemente, 01/28/23 Hernia repair, performed at [facility] by Dr. Lambert roberson, 02/02/23 Gastric bypass, performed at [facility] in [place], [place], 11/18/23 Hospitalization History Reason Date(Month/Year) Child , treated at [facility], 2008, 2011, 2017, 2019, 2020
--- OUTSIDE RECORDS SUMMARY | 2025-04-16 15:32 | XMS_ITS | Encounter Summary ---
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 Gender Identity Not on file Sexual Orientation Not on file documented as of this encounter Plan of Treatment Not on file documented as of this encounter Visit Diagnoses Diagnosis Family history of congenital anomalies documented in this encounter Additional Health Concerns Infection Onset Date Last Indicated Resolved Time MRSA Comment:RESOLVED 07/15/2010 07/15/2010 08/11/2011 12:23 PM LANDSCAPE ARCHITECTURE PROFESSOR documented as of this encounter Care Teams Dust Brush Assembler Relationship Specialty Start Date End Date Tamiko Christensen MD [address] [place] [phone] PCP - General Family Practice 05/14/17 documented as of this encounter
--- OUTSIDE RECORDS SUMMARY | 2025-04-16 15:32 | XMS_ITS | Clinical Summary ---
Author Organization [facility] Address [address] [place] [address] Phone Care Team Providers Care Scale Expert Name Role Phone Tamiko Christensen MD Primary Care Provid er Allergies Active Allergy Reactions Criticality Noted Date Comments Cedarwood Oil Other (See Comments) 05/14/2017 Sneezing. Imipramine Rash Low 04/28/2010 Oxybenzone-Padimate O Rash Medium 03/30/2011 Medications [id number] no6-dha 28 mg iron- 1 mg-400 mg [...] the great vessels; lived 6h. born in [place], [place]. 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 Gender Identity Not on file Sexual Orientation [...] Additional history exists DTAP/TDAP/TD VACCINES (2 - T d or Tdap) 11/25/2021 11/26/2011 CERVICAL CANCER SCREENING 10/21/2022 HPV/Cotest (21-29) 10/21/2022 10/21/2017, 0 03/01/2013, 01/05/2012, Additional history exists HPV/Cotest (30-65) 10/21/2022 10/21/2017, 0 03/01/2013, 01/05/2012, Additional history exists BREAST CANCER SCREENING 2023 INFLUENZA VACCINE (#1) 2025 08/05/2018, 2010 Preventative Visit-Managed Medicaid 11/11/2025 11/10/2024, 02/28/2011 Procedures Procedure Name Priority Date/Time Associated Diagnosis Comments GLUCOSE FASTING Routine 07/01/2018 10:38 AM CDT Gestational diabetes mellitus (GDM), antepartum, gestational diabetes method of control unspecified Routine follow-up CERV/VAG CYTO SCREEN PAP RLFX HPV Routine 10/21/2017 11:52 AM CRYSTAL MACHINING COORDINATOR Encounter for screening of mother from Last 3 Months or Most Recently Relevant to Health Maintenance Results * GLUCOSE FASTING (07/01/2018 10:38 AM CDT) Pathologist [facility] GLUCOSE-FASTIN G 91 74 - 99 mg/dL 07/01/2018 11:57 AM CDT [facility] Blood Venipuncture / Unknown 07/01/2018 10:38 AM CDT 07/01/2018 10:38 AM CDT Jakob Galeana II, MD CHEMISTRY ORDERABLES Fatuma murphy Result [facility] CLIA# [id number] [facility] [id number] [place] [address] * CERV/VAG CYTOPATH, THIN PREP IMAGR RFLX HPV (10/21/2017 11:52 AM CRYSTAL MACHINING COORDINATOR) CLINICAL INFORMATION SEE COMMENT 10/26/2017 4:36 PM CRYSTAL MACHINING COORDINATOR [facility] Comment:Information not prov ided LAST MENSTRUAL PERIOD SEE COMMENT 10/26/2017 4:36 PM CRYSTAL MACHINING COORDINATOR [facility] Comment:INFORMATION NOT PROV IDED PREV PAP: SEE COMMENT 10/26/2017 4:36 PM CRYSTAL MACHINING COORDINATOR [facility] Comment:INFORMATION NOT PROV IDED PREV BX: SEE COMMENT 10/26/2017 4:36 PM CRYSTAL MACHINING COORDINATOR [facility] Comment:INFORMATION NOT PROV IDED SOURCE Endocervix 10/26/2017 4:36 PM CRYSTAL MACHINING COORDINATOR [facility] ADEQUACY: SEE COMMENT 10/26/2017 4:36 PM CRYSTAL MACHINING COORDINATOR [facility] Comment: Satisfactory for evaluation. Endocervical/transformation zone component present. Age and/or menstrual status not provided PAP INTERP SEE COMMENT 10/26/2017 4:36 PM CRYSTAL MACHINING COORDINATOR [facility] Comment:Negative for intraep ithelial lesion or malignancy. COMMENT SEE COMMENT 10/26/2017 4:36 PM CRYSTAL MACHINING COORDINATOR [facility] Comment: This Pap test has been evaluated with computer assisted technology. BUSINESS SERVICES TECH: SEE COMMENT 2017 4:36 PM CRYSTAL MACHINING COORDINATOR [facility] Comment: BES, CT(ASCP) CT screening location: [place] [address] Administration JASON Jain [id number] Genital SWAB OF ENDOCERVIX / Unknown Collection / Unknown 10/21/2017 11:52 AM CRYSTAL MACHINING COORDINATOR 10/22/2017 7:47 AM CRYSTAL MACHINING COORDINATOR Narrative [facility] - 10/26/2017 4:36 PM CRYSTAL MACHINING COORDINATOR Performing Organization Information: Site ID: Name: [facility] Address: [facility] Administration J[place]ON [place] [address] Director: Lino Rosas MD Toshia Rajan MD PATHOLOGY/CYTOLOGY ORDERAB LES Final Result Performing Organization Address City/State/[facility] Co de Phone Number [facility] from Last 3 Months or Most Recently Relevant to Health Maintenance Insurance [employer] [facility] MEDICAID [place] Advance Directives For more information, please contact: [phone] * Full Code (Latest Code Status on [...] 11:38 AM 06/07/2013 4:40 PM Care Teams Scale Expert Relationship Specialty Start Date End Date Tamiko Christensen MD [address] [place] [address] PCP - General Family Practice 05/14/17
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
[2025-04-16 15:39] VITALS: PULSE 69; O2SAT 98
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
[2025-04-16 16:01] LABS: Hematocrit 36.5 % (36-47); Hemoglobin 12.00 g/dL (11.27-16.99); Mean Corpuscular HGB Conc 32.9 g/dL (30-55); Mean Corpuscular Hemoglobin 29.9 pg (27-33); Mean Corpuscular Volume 91.0 fl (85-98); Nucleated Red Blood Cells % 0 %; Platelet Count 197 10^3/cmm (157-399); Red Blood Count 4.01 10^6/uL (3.85-5.65); White Blood Count 6.13 10^3/uL (3.29-11.43)
[2025-04-16 16:05] VITALS: BP 119/77; PULSE 67; O2SAT 98
[2025-04-16 16:15] LABS: HCG, Serum Qual Negative (Negative)
[2025-04-16 16:17] LABS: Glucose Urine UA Negative (Normal); Nitrate Urine Negative (Negative); Specific Gravity, Urine 1.008 (1.005-1.030)
[2025-04-16 16:18] LABS: Alanine Aminotransferase 123 U/L (0-33); Albumin Level 3.5 g/dL (3.5-5.2); Alkaline Phosphatase 136 U/L (35-105); Anion Gap 14.0 (5-19); Aspartate Amino Transferase 76 U/L (0-32); Blood Urea Nitrogen 12 mg/dL (6-20); Calcium 8.4 mg/dL (8.5-10.5); Carbon Dioxide 27 mmol/L (22-29); Chloride 103 mmol/L (98-107); Creatinine Clr Calc Pharmacy 106.2968; Globulin 2.6 g/dL (1.3-4.6); Glucose 113 mg/dL (65-115); Osmolality Calculated 291 mOsm/kg (285-295); Potassium 4.0 mmol/L (3.5-5.1); Sodium 140 mmol/L (136-145); Total Protein 6.1 g/dL (6.6-8.7)
[2025-04-16 16:21] LABS: Add Urine Microscopic? YES
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
[2025-04-16 17:00] VITALS: BP 92/53; PULSE 66; O2SAT 99
[2025-04-16 17:56] VITALS: BP 98/60; PULSE 64; O2SAT 98
[2025-04-16 18:15] VITALS: BP 100/64; PULSE 67; O2SAT 96
== END 2025-04-16 18:17 | disposition home or self-care (01) ==
PROVIDERS: Emergency Provider Physician Assistant; PCP Family Medicine
DX: G40.909 Epilepsy, unspecified, not intractable, without status epilepticus (principal); R74.01 Elevation of levels of liver transaminase levels; S00.03XA Contusion of scalp, initial encounter; V89.2XXA Person injured in unspecified motor-vehicle accident, traffic, initial encounter
CPT/HCPCS: 36415; 70450; 71045; 72125; 80053; 80164; 81001; 84146; 84703; 85025; 99284

== ENCOUNTER 2025-04-19 07:49 | Emergency (ER) | payer MEDICAID, SELFPAY ==
[2025-01-23 15:14] VITALS: BP 131/94; BMI 29.6
--- OUTSIDE RECORDS SUMMARY | 2025-03-10 23:59 | XMS_ITS | Continuity of Care Document ---
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 Role Phone [facility] Unavailable Unavailable Problems Problem Status Onset Date Problem Type Date of Resolution Comments Source Post-surgical malabsorption (disorder) 11/28/2024 Diagnosis Gastroesophageal reflux disease (disorder) Active Condition Body mass index 40+ - severely obese (finding) Active Condition Added by Discern Rule PROB_ADD_BMI Severe obesity (disorder) Active Condition Added by Discern Rule PROB_ADD_BMI Morbid obesity (disorder) Diagnosis Gastroesophageal reflux disease without esophagitis (disorder) Diagnosis Gastric polyp (disorder) Diagnosis Diaphragmatic hernia (disorder) Diagnosis Gastroduodenal disorder (disorder) Diagnosis Asthma (disorder) Diagnosis Obstructive sleep apnea syndrome (disorder) Diagnosis Fibromyalgia (disorder) Diagnosis Osteoarthritis (disorder) Diagnosis Anxiety disorder (disorder) Diagnosis Adjustment disorder with depressed mood (disorder) Diagnosis Posttraumatic stress disorder (disorder) Diagnosis Long-term current use of drug therapy (situation) Diagnosis Acute gastric ulcer without hemorrhage AND without perforation (disorder) Diagnosis Body mass index 40+ - severely obese (finding) Diagnosis Acquired absence of organ Diagnosis Sleep apnea (finding) Diagnosis Abdominal pain (finding) 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) Diagnosis Morbid (severe) obesity due to excess calories Active Diagnosis Gastro-esophageal reflux disease without esophagitis Active Diagnosis Unspecified abdominal pain Active Diagnosis Allergies, Adverse Reactions, Alerts Substance Category Reaction Severity Reaction type Status Date Reported Comments Source Glutens Assertion GASTRIC DISTRESS Food allergy Resolved 19:11:06 [facility] imipramine Assertion RASH Drug allergy Active [facility] egg containing compound Assertion EGG WHITES Food allergy Active [facility] Milk Product Assertion Food allergy Active [facility] Results Order Name Results Value Reference Range Date Interpretation Comments Source GENERAL CHEMISTRY Glucose Lvl 76 mg/dL 70 - 139 11/28 20:40 :18 [facility] GENERAL CHEMISTRY Calcium 8.7 mg/dL 8.3 - 10.6 11/28 20:40 :18 [facility] GENERAL CHEMISTRY Sodium 141 mmol/L 136 - 145 11/28 20:40 :18 [facility] GENERAL CHEMISTRY Chloride 108 mmol/L 98 - 107 11/28 20:40 :18 [facility] GENERAL CHEMISTRY Potassium 3.9 mmol/L 3.5 - 5.1 11/28 20:40 :18 [facility] GENERAL CHEMISTRY CO2 27 mmol/L 20 - 31 11/28 20:40 :18 [facility] GENERAL CHEMISTRY T Bili 0.70 mg/dL 0.30 - 1.20 11/28 20:40 :18 [facility] GENERAL CHEMISTRY Anion gap 10 mmol/L 0 - 20 11/28 20:40 :18 [facility] GENERAL CHEMISTRY Creatinine, standardized 0.7 mg/dL 0.5 - 1.0 11/28 20:40 :18 Interpretive Data: [id number] e transgender patients on testosterone therapy should have results assessed using the male reference range. Cszg-ur-patkp e transgender patients on hormone-modul ating therapy clinical judgment is advisedfor assessment. [facility] GENERAL CHEMISTRY Total Protein 7.0 g/dL 5.7 - 8.2 11/28 20:40 :18 [facility] GENERAL CHEMISTRY Estimated GFR for Adults 104 mL/min/1.7 3m 11/28 20:40 :18 Interpretive Data: Changed to CKD-EPI 2020 on 2020. [facility] GENERAL CHEMISTRY Estimated GFR for peds Not Calculated mL/min/1.7 3m 11/28 20:40 :18 Interpretive Data: The estimated GFR was calculated using the B hiwot Newberry equation (2009) . Reference: Pediatric GFR calculator at National Kidney [employer] Website. [facility] GENERAL CHEMISTRY Albumin 3.7 g/dL 3.4 - 5.0 11/28 20:40 :18 [facility] GENERAL CHEMISTRY AST-SGOT 43 U/L 11/28 20:40 :18 [facility] GENERAL CHEMISTRY ALT-SGPT 53 U/L 10 - 40 11/28 20:40 :18 [facility] GENERAL CHEMISTRY Alkaline Phosphatase 149 U/L 35 - 104 11/28 20:40 :18 [facility] GENERAL CHEMISTRY BUN 11 mg/dL 6 - 20 11/28 20:40 :18 [facility] GENERAL CHEMISTRY Ferritin 19.8 ng/mL 7.3 - 270.7 11/28 20:40 :18 [facility] GENERAL CHEMISTRY Iron Saturation 10.0 % 20.0 - 55.0 11/28 20:40 :18 [facility] GENERAL CHEMISTRY TIBC 315 ug/dL 250 - 425 11/28 20:40 :18 [facility] GENERAL CHEMISTRY Iron 31 ug/dL 50 - 170 11/28 20:40 :18 [facility] GENERAL CHEMISTRY Cholesterol HDL Ratio 2.7 11/28 20:40 :18 [facility] GENERAL CHEMISTRY HDL Cholesterol 56 mg/dL 11/28 20:40 :18 Interpretive Data: HDL Cholesterol Level mg/dL Category Less than 40(for Men) Low HDL cholesterol. A major risk factor for heart disease. Less than 50 (for Women) 60 and above High HDL cholesterol. An HDL of 60 mg/dL and above is considered protective against heart disease. National Cholesterol Education Program [employer] [facility] [address] [address] [facility] [address] http:www.nhlb i.nih.gov [facility] GENERAL CHEMISTRY Cholesterol 155 mg/dL 11/28 20:40 :18 [facility] GENERAL CHEMISTRY LDL (Calculated) 82 mg/dL 0 - 129 11/28 20:40 :18 Interpretive Data: LDL cholesterol is calculated based on the NIH-Rico equation effective 04-28-2024. The NIH equation gives valid calculated LDL-C results with triglyceride concentration s up to 800 mg/dL. LDL Cholesterol Level mg/dL Category Less than 100 Optimal 100 to 129 Near or above optimal 130 to 159 Borderline high 160 to 189 High 190 and above Very High Note: Values < 80 mg/dL may indicate hypobetalipop roteinemia, if not on Statin therapy. Reference: Jacky et al. NINOSKA Cardiol. 2020; 26: 1-9. [facility] GENERAL CHEMISTRY Triglyceride s 87 mg/dL 11/28 20:40 :18 Interpretive Data: Less than 150 Normal 150 - 199 Borderline high 200 - 499 High 500 and above Very high National Cholesterol Education Program [facility] [address] [address] [place] [address] http://www.wi lbi,nih.gov [facility] GENERAL CHEMISTRY Magnesium 2.02 mg/dL 1.60 - 2.60 11/28 20:40 :18 [facility] GENERAL CHEMISTRY Phosphorus 4.3 mg/dL 2.4 - 5.1 11/28 20:40 :18 [facility] GENERAL CHEMISTRY Vitamin B12 596 pg/mL 211 - 911 11/28 20:40 :18 [facility] GENERAL CHEMISTRY 25-OH Vitamin D Level 40.44 ng/mL 20.00 - 100.00 11/28 20:40 :18 [facility] GENERAL CHEMISTRY Folate 22.50 ng/mL 11/28 20:40 :18 [facility] HEMATOLOGY PROFILES MPV 12.7 8.0 - 12.0 11/28 20:40 :18 [facility] HEMATOLOGY PROFILES PLT 242 x10(9)/L 150 - 450 11/28 20:40 :18 [facility] HEMATOLOGY PROFILES MCHC 32.3 g/dL 32.0 - 36.0 11/28 20:40 :18 [facility] HEMATOLOGY PROFILES MCH 28.3 pg 26.0 - 33.0 03/10 /2025 20:40 :18 [facility] HEMATOLOGY PROFILES RDW CV 14.5 % 11.9 - 15.5 11/28 20:40 :18 [facility] HEMATOLOGY PROFILES RDW SD 45.6 fL 36.4 - 46.3 11/28 20:40 :18 [facility] HEMATOLOGY PROFILES WBC 7.37 x10(9)/L 3.50 - 10.50 11/28 20:40 :18 [facility] HEMATOLOGY PROFILES RBC 4.66 x10(12)/L 3.90 - 5.03 11/28 20:40 :18 [facility] HEMATOLOGY PROFILES MCV 87.8 fL 81.6 - 98.3 11/28 20:40 :18 [facility] HEMATOLOGY PROFILES HGB 13.2 g/dL 12.0 - 15.5 11/28 20:40 :18 Interpretive Data: Vpvkzw-eg-fqo e transgender patients on testosterone therapy should have results assessed using the male reference range. Voqs-cv-bqlks e transgender patients on hormone-modul ating therapy clinical judgment is advisedfor assessment. [facility] HEMATOLOGY PROFILES HCT 40.9 % 34.9 - 44.5 11/28 20:40 :18 Interpretive Data: Enddnu-vs-ilh e transgender patients on testosterone therapy should have results assessed using the male reference range. Dwtc-by-lyqqe e transgender patients on hormone-modul ating therapy clinical judgment is advisedfor assessment. [facility] HEMATOLOGY PROFILES Absolute Nucleated RBCs 0.0 x10(9)/L 0.0 - 0.0 11/28 20:40 :18 Interpretive Data: Normal values not established in patients less than 18 years old. [facility] HEMATOLOGY PROFILES % Nucleated RBCs 0.0 % 11/28 20:40 :18 [facility] HEMATOLOGY PROFILES % Neutrophils 68.0 % 11/28 20:40 :18 [facility] HEMATOLOGY PROFILES % Lymphocytes 23.0 % 11/28 20:40 :18 [facility] HEMATOLOGY PROFILES % Eosinophils 2.9 % 11/28 20:40 :18 [facility] HEMATOLOGY PROFILES % Monocytes 5.2 % 11/28 20:40 :18 [facility] HEMATOLOGY PROFILES % Immature Granulocytes 0.40 % 0.02 - 0.42 11/28 20:40 :18 [facility] HEMATOLOGY PROFILES % Basophils 0.5 % 11/28 20:40 :18 [facility] HEMATOLOGY PROFILES Absolute Granulocytes 4.95 x10(9)/L 1.70 - 7.00 11/28 20:40 :18 [facility] HEMATOLOGY PROFILES Abs Monocytes 0.38 x10(9)/L 0.30 - 0.90 11/28 20:40 :18 [facility] HEMATOLOGY PROFILES Abs Lymphocytes 1.68 x10(9)/L 0.90 - 2.90 11/28 20:40 :18 [facility] HEMATOLOGY PROFILES Abs Basophils 0.04 x10(9)/L 0.00 - 0.30 11/28 20:40 :18 [facility] HEMATOLOGY PROFILES Abs Eosinophils 0.21 x10(9)/L 0.05 - 0.50 11/28 20:40 :18 [facility] HEMATOLOGY PROFILES Abs Immature Granulocytes 0.03 x10(9)/L 0.00 - 0.03 11/28 20:40 :18 [facility] CHEMISTRY Intact PTH 113.7 pg/mL 18.4 - 80.1 11/28 20:40 :18 [facility] REFERENCE LABS Thiamin( Bld)-[place] 168 nmol/L 70 - 180 11/28 20:40 :18 Result Comment: ------ADDITIO NAL INFORMATION-- ---- This test was developed and its performance characteristi cs determined by [facility] in a manner consistent with CLIA requirements. This test has not been cleared or approved by the U.S. Food and Drug Administratio n. Test Performed by: [facility] [place] [address] Retail Attendant: Ofe Restrepo Ph.D.; CLIA# [id number] [facility] REFERENCE LABS Free Retinol(Vit A)-[place] 33.8 ug/dL 32.5 - 78.0 11/28 20:40 :18 Result Comment: ------ADDITIO NAL INFORMATION-- ---- This test was developed and its performance characteristi cs determined by [facility] in a manner consistent with CLIA requirements. This test has not been cleared or approved by the U.S. Food and Drug Administratio n. Test Performed by: [facility] [place] [address] Retail Attendant: Ofe Restrepo Ph.D.; CLIA# [id number] [facility] REFERENCE LABS A-Tocopherol , Vit E-[place] 10.1 mg/L 5.5 - 17.0 11/28 20:40 :18 Result Comment: ------ADDITIO NAL INFORMATION-- ---- This test was developed and its performance characteristi cs determined by [facility] in a manner consistent with CLIA requirements. This test has not been cleared or approved by the U.S. Food and Drug Administratio n. Test Performed by: [facility] [place] [address] Retail Attendant: Ofe Restrepo Ph.D.; CLIA# [id number] [facility] REFERENCE LABS Vitamin K1-[place] 0.32 ng/mL 0.10 - 2.20 11/28 20:40 :18 Result Comment: ------ADDITIO NAL INFORMATION-- ---- This test was developed and its performance characteristi cs determined by [facility] in a manner consistent with CLIA requirements. This test has not been cleared or approved by the U.S. Food and Drug Administratio n. Test Performed by: [facility] [place] [address] Retail Attendant: Ofe Restrepo Ph.D.; CLIA# [id number] [facility] REFERENCE LABS Zinc, S-[place] 71 ug/dL 60 - 106 11/28 20:40 :18 Result Comment: ------ADDITIO NAL INFORMATION-- ---- This test was developed and its performance characteristi cs determined by [facility] in a manner consistent with CLIA requirements. This test has not been cleared or approved by the U.S. Food and Drug Administratio n. Test Performed by: [facility] [place] [address] Retail Attendant: Ofe Restrepo Ph.D.; CLIA# [id number] [facility] REFERENCE LABS Copper, S[place] 131 ug/dL 77 - 206 11/28 20:40 :18 Result Comment: ------ADDITIO NAL INFORMATION-- ---- This test was developed and its performance characteristi cs determined by [facility] in a manner consistent with CLIA requirements. This test has not been cleared or approved by the U.S. Food and Drug Administratio n. Test Performed by: [facility] [place] [address] Retail Attendant: Ofe Restrepo Ph.D.; CLIA# [id number] [facility] Consultation Notes Results Value Date Source General Surgery Clinic Note Chief Compla int yearly History of Present Illness Annual follow up. Procedure: RYGB with PEHR - Provider: Dr. Dunn Date of Procedure: 11/18/2023 Day of Surgery Weight: 190.5 kg Last Weight: 81.8 kg Current wt: 74.5 kg Lowest Weight: 74.5 kg Last EGD/EGJ: 08/04/2023 Symptoms: Denies nausea, vomiting, diarrhea, and constipation. Denies fatigue and tiredness. No further complications noted at this time. States she will feel nausea if eats too much. Is very happy with her weight loss results, does complain of excess loose skin. Has a cream she will use for rashes. GERD: No Dysphagia: No Adequate fluid: Yes Adequate Protein: Yes65g Vitamins: Yes has ran out of bariatric and is taking a MVI OTC-plans to have them by end of the month, cost is an issue. PPI: No Exercise: Yeswalks and resistance bands and light weights-swimming with [employer] Smoking: No NSAID: No Oral Steroids: No Patient reports improvement or resolution of the following comorbidities: Diabetes:N/A GERD:N/A Hyperlipidemia:N/A Hypertension:N/A Sleep Apnea: No Continues to CPAP and got new mask Readmissions/Reoperations/Interventions since surgery: ER Visit 12/18/2023 Small Bowel Obstruction, resolved Review of Systems Denies nausea, vomiting, bloating, constipation, diarrhea, heart burn, dysphagia, regurgitation Denies chest pain, shortness of breath, leg swelling [1] Physical Exam Vitals and Measurements HR: 63 RR: 16 BP: 124/86 SpO2: 97% HT: 162.5 cm WT: 74.5 kg BMI: 28.2 Constitutional: Conversive. No acute distress. Neurological: Alert and oriented. Integument: No overt viewable cyanosis, pallor, or jaundice. Psych: Normal mood and affect [2] Clinic Procedure Assessment/Plan History of bariatric surgery Postoperative malabsorption Patient is a 39 year old female s/p RYGB with PEHR to treat preoperative obesity/morbid obesity and associated comorbidities. Orders: 1). Class I Obesity, BMI: 28.2 kg/m2 2). Post Status RYGB with PEHR -Overall patient is doing well postoperatively -Congratulated patient on weight loss success -Follow up in 12 months per protocol. Will obtain full bariatric lab panel next visit. Dietary counseling-Discussed the importance of adequate protein intake (65-80 g/day). discussed the importance of bariatric MVI with her malabsorptive procedure. Exercise counseling and surveillance-Discussed importance of routine exercise regimen and incorporation of strength training/resistance activities. -Modifications to standard protocol: None. 3) Postoperative malabsorption-full set of labs ordered today Bariatric labs: Pt will go after visit to have drawn. Our registered dietitians will review the results and send a letter to the patient regarding any deficiencies noted with any recommended supplementation. Ordered full bariatric lab panel including: CBC with Auto Differential Comprehensive Metabolic Panel Ferritin Level Folate Level Intact PTH Iron Level and TIBC Lipid Profile Magnesium Level Phosphorus Level Copper, serum-[place] Vitamin B1 (Thiamin) Whole Blood-[place] Vitamin B12 Level Vitamin K1 level-[place] Vitamin A level-[place] Vitamin D Level Zinc Level-[place] Patient advised to continue Bariatric MVI along with [id number] mg per day with Vitamin D. 4) Vitamin A deficiency-take 6000-7500mcg vitamin A daily-Vitamin A level ordered today 5) excessive loose skin-arms and abdominal -uses ketoconazole cream -discussed referral to plastic surgery once she has demonstrated 6 months of weight maintenance. Patient understood and agreed to the above plan. The visit required complex medical management through an ongoing care relationship with the patient. Problem List/Past Medical History Ongoing BMI 40.0-44.9, adult GERD (gastroesophageal reflux disease) Severe obesity Procedure/Surgical History EGD and GASTRIC BX Service Date: 05/12/2023 EGD Service Date: 02/28/2023 STOMACH FLAP REMOVAL Service Date: 2012 BREAST REDUCTION Service Date: 2007 ABDOMINAL HERNIA W/MESH UMBILICAL HERNIA SURGERY WITH MESH LAP CHOLEY Medications acetaminophen(acetaminophen 500 mg oral tablet), 1000 mg= 2 Tablet(s), Oral, q6h acetaminophen-codeine(acetaminophen-cod eine 300 mg-60 mg oral tablet) albuterol(albuterol HFA 90 mcg/inh inhalation aerosol), 2 Puff, Inhalation, q6h ARIPiprazole(Abilify), Oral, Daily ascorbic acid(Vitamin C), Oral, Daily busPIRone(busPIRone 10 mg oral tablet), 10 mg= 1 Tablet(s), Oral, tid celecoxib(celecoxib 200 mg oral capsule), 200 mg= 1 capsule(s), Oral, bid cetirizine(ZyrTEC 10 mg oral tablet), 10 mg= 1 Tablet(s), Oral, Daily clobetasol topical(clobetasol 0.05% topical solution), Topical, bid cyclobenzaprine(cyclobenzaprine 5 mg oral tablet), 5 mg= 1 Tablet(s), Oral, tid fluticasone(Flovent HFA), Inhalation, bid fluticasone nasal(fluticasone 50 mcg/inh nasal spray), 2 [place], Each Nostril, bid, PRN gabapentin(gabapentin 300 mg oral capsule) hydrOXYzine(hydrOXYzine hydrochloride 25 mg oral tablet), 25 mg= 1 Tablet(s), Oral, qid, PRN ketoconazole topical(ketoconazole 2% topical shampoo), Topical, Once montelukast(montelukast 10 mg oral tablet), 10 mg= 1 Tablet(s), Oral, Daily multivitamin(Vitamin B Complex 100) pantoprazole(Protonix 40 mg oral delayed release tablet), 40 mg= 1 Tablet(s), Oral, bid pantoprazole(pantoprazole 40 mg oral delayed release tablet), 40 mg= 1 Tablet(s), Oral, Daily prazosin(prazosin 1 mg oral capsule), 1 mg= 1 capsule(s), Oral, tid traMADol(traMADol 50 mg oral tablet), 50 mg= 1 Tablet(s), Oral, q6h traZODone(traZODone 100 mg oral tablet) triamcinolone topical(triamcinolone 0.025% topical cream), Topical, tid Allergies Milk Product egg containing compound EGG WHITES imipramine RASH Social History Smoking Status Never smoker Alcohol - Denies Alcohol Use Substance Abuse - Denies Substance Abuse Tobacco - Denies Tobacco Use Family History Immunizations Health Maintenance Lab Results Diagnostic Results Visit Information Attending Physician: Theodore BALLESTEROS Visit Date: 11/28/2024 [1-2] 6 month fu; Theodore Leon 05/24/2024 08:06 CDT [1-2] 6 month fu; Theodore Leon 05/24/2024 08:06 CDT 11/28/2024 General Surgery Clinic Note Chief Compla int History of Present Illness Visit type: Telehealth surgery consultation (includes audio and video equipment) Provider Located: Bariatric Clinic Patient Located: Home or non-medical facility Consent: verbal consent for this telehealth visit was obtained from the patient or guardian prior to beginning this encounter. Risks (technology failure, privacy, security, and incomplete examination), and benefits (reduced exposure to infectious disease and convenience) of using a virtual platform were reviewed and addressed prior to beginning the encounter. Patient endorses that they are in the [facility] during this telehealth visit. Visit type: Zoom telehealth postoperative follow up 6 month follow up Procedure: RYGB with PEHR - Provider: Dr. Dunn Date of Procedure: 11/18/2023 Day of Surgery Weight: 190.5 kg Last Weight: 88.18 kg Current wt: 81.81kg Lowest Weight: 88.18 kg Last EGD/EGJ: 08/04/2023 Symptoms: Denies nausea, vomiting, diarrhea, and constipation. Denies fatigue and tiredness. No further complications noted at this time. States she will feel nausea if eats too much. GERD: No Dysphagia: No Adequate fluid: Yes Adequate Protein: Yes65g Vitamins: Yes has ran out of bariatric and is taking a MVI OTC-plans to have them by end of the month, cost is an issue. PPI: No Exercise: Yeswalks and resistance bands and light weights Smoking: No NSAID: No Oral Steroids: No Patient reports improvement or resolution of the following comorbidities: Diabetes:N/A GERD:N/A Hyperlipidemia:N/A Hypertension:N/A Sleep Apnea: No Continues to CPAP and got new mask Readmissions/Reoperations/Interventions since surgery: ER Visit 12/18/2023 Small Bowel Obstruction, resolved Review of Systems Denies nausea, vomiting, bloating, constipation, diarrhea, heart burn, dysphagia, regurgitation Denies chest pain, shortness of breath, leg swelling Physical Exam Vitals and Measurements Constitutional: Conversive. No acute distress. Neurological: Alert and oriented. Integument: No overt viewable cyanosis, pallor, or jaundice. Psych: Normal mood and affect Clinic Procedure Assessment/Plan Patient is a 38 year old female s/p RYGB with PEHR to treat preoperative obesity/morbid obesity and associated comorbidities. Orders: 1). Class I Obesity, BMI: 31 kg/m2 2). Post Status RYGB with PEHR -Overall patient is doing well postoperatively -Congratulated patient on weight loss success -Follow up in 6 months per protocol. Will obtain full bariatric lab panel next visit. Dietary counseling -Discussed the importance of adequate protein intake (65-80 g/day). discussed the importance of bariatric MVI with her malabsorpitve procedure. Exercise counseling and surveillance-Discussed importance of routine exercise regimen and incorporation of strength training/resistance activities. -Modifications to standard protocol: None. 3) Postoperative malabsorption Bariatric labs: Pt will go after visit to have drawn. Our registered dietitians will review the results and send a letter to the patient regarding any deficiencies noted with any recommended supplementation. -email list of labs for pcp to order and review if she doesn't make it to a [facility] lab. Ordered full bariatric lab panel including: CBC with Auto Differential Comprehensive Metabolic Panel Ferritin Level Folate Level Intact PTH Iron Level and TIBC Lipid Profile Magnesium Level Phosphorus Level [place]pper, serum-[place] Vitamin B1 (Thiamin) Whole Blood-[place] Vitamin B12 Level Vitamin K1 level-[place] Vitamin A level-[place] Vitamin D Level Zinc Level-[place] Patient advised to continue Bariatric MVI along with [id number] mg per day with Vitamin D. Patient understood and agreed to the above plan. The visit required complex medical management through an ongoing care relationship with the patient. Problem List/Past Medical History Ongoing BMI 40.0-44.9, adult GERD (gastroesophageal reflux disease) Severe obesity Historical No qualifying data Procedure/Surgical History EGD and GASTRIC BX (05/12/2023) EGD (02/28/2023) STOMACH FLAP REMOVAL (2012) BREAST REDUCTION (2007) ABDOMINAL HERNIA W/MESH [facility] UMBILICAL HERNIA SURGERY WITH MESH Medications Abilify, Oral, Daily acetaminophen 500 mg oral tablet, 1000 mg= 2 Tablet(s), Oral, q6h albuterol HFA 90 mcg/inh inhalation aerosol, 2 Puff, Inhalation, q6h busPIRone 10 mg oral tablet, 10 mg= 1 Tablet(s), Oral, tid celecoxib 200 mg oral capsule, 200 mg= 1 capsule(s), Oral, bid clobetasol 0.05% topical solution, Topical, bid cyclobenzaprine 5 mg oral tablet, 5 mg= 1 Tablet(s), Oral, tid Flovent HFA, Inhalation, bid fluticasone 50 mcg/inh nasal spray, 2 [place], Each Nostril, bid, PRN gabapentin 300 mg oral capsule hydrOXYzine hydrochloride 25 mg oral tablet, 25 mg= 1 Tablet(s), Oral, qid, PRN ketoconazole 2% topical shampoo, Topical, Once montelukast 10 mg oral tablet, 10 mg= 1 Tablet(s), Oral, Daily pantoprazole 40 mg oral delayed release tablet, 40 mg= 1 Tablet(s), Oral, Daily prazosin 1 mg oral capsule, 1 mg= 1 capsule(s), Oral, tid Protonix 40 mg oral delayed release tablet, 40 mg= 1 Tablet(s), Oral, bid traMADol 50 mg oral tablet, 50 mg= 1 Tablet(s), Oral, q6h traZODone 100 mg oral tablet triamcinolone 0.025% topical cream, Topical, tid Vitamin B Complex 100 Vitamin C, Oral, Daily ZyrTEC 10 mg oral tablet, 10 mg= 1 Tablet(s), Oral, Daily Allergies Milk Product egg containing compound (EGG WHITES) imipramine (RASH) Social History Smoking Status Never smoker Alcohol - Denies Alcohol Use Substance Abuse - Denies Substance Abuse Tobacco - Denies Tobacco Use Family History Immunizations Health Maintenance Lab Results Diagnostic Results Visit Information Attending Physician: Theodore Case RANGE CONSERVATIONIST Visit Date: 05/24/2024 05/24/2024 Vital Signs Vital Sign Value Date Comments Source BMI 28.2 kg/m2 11/28/2024 19:13:00 [facility] Respiratory Rate 16 breaths/min 11/28/2024 19:13:00 [facility] BSA Wilber 1.8 11/28/2024 19:13:00 [facility] Height (cm) 162.5 cm 11/28/2024 19:13:00 [facility] Heart Rate 63 bpm 11/28/2024 19:13:00 [facility] SpO2 97 % 11/28/2024 19:13:00 [facility] SBP NIBP 124 mm[Hg] 11/28/2024 19:13:00 [facility] DBP NIBP 86 mm[Hg] 11/28/2024 19:13:00 [facility] Weight (kg) 74.5 kg 11/28/2024 19:13:00 [facility] Encounters Location Location Details Encounter Type Encounter Number Reason For Visit Attending Provider ADM Date DC Date Status Source [facility] [id number] Albert Licona 05/24 13:04 :04 05/25 04:59 :59 [facility] [id number] Theodore Case 05/24 13:06 :59 05/25 04:59 :59 [facility] Clinic [id number] Theodore Case 11/28 19:03 :45 11/29 04:59 :59 [facility] Between Visit [id number] 11/29 17:59 :39 11/30 04:59 :59 [facility] Between Visit [id number] 12/07 21:43 :25 12/08 04:59 :59 [facility] Between Visit [id number] 03/10 14:05 :49 03/11 04:59 :59 [facility] Between Visit [id number] 03/10 18:06 :10 03/11 04:59 :59 [facility] Procedures Procedure Code Date Perfomer Comments Source ABDOMINAL HERNIA W/MESH [facility] UMBILICAL HERNIA SURGERY WIT H MESH [facility] WOMEN AN D [facility] Social History Social History Date Source Social History TypeResponse Sex Female Sex Representation Female (finding) 03/11/2025 [facility] [place] Social History TypeResponse Sex Female Sex Representation Female (finding) 12/08/2024 [facility] Social History TypeResponse Sex Female Sex Representation Female (finding) 11/30/2024 [facility] Social History TypeResponse Sex Female Sex Representation Female (finding) 11/29/2024 [facility] Social History TypeResponse Sex Female Sex Representation Female (finding) 05/25/2024 [facility]
[2025-04-19 07:55] VITALS: BP 131/77; PULSE 74; RESP 16; TEMP 36.7; O2SAT 100; BMI 28.8
--- OUTSIDE RECORDS SUMMARY | 2025-04-19 07:57 | XMS_ITS | Encounter Summary ---
Author Organization [facility] Address [address] [place] [address] Care Team Providers Care Delivery Of Shopping News Name Role Phone Tamiko Christensen MD Primary [...] fax: [facility] [address] Phone: tel: fax: Referral ID Status Reason Start Date Expiration Date Visits Requested Visits Authorized [id number] Closed Ordering Department To Schedule 01/14/2018 02/14/2019 1 1 * Outpatient Services (Routine) - Closed Specialty Diagnoses / Procedures Referred By Kale richardson Referred To Contact Perinatology Diagnoses At risk for gestational diabetes mellitus Procedures US OB FOLLOW UP PER FETUS Toshia Rajan MD Phone: tel: fax: [facility] [place] [address] Phone: tel: fax: Referral ID Status Reason Start Date Expiration Date Visits Requested Visits Authorized [id number] Closed Ordering Department To Schedule 01/14/2018 02/14/2019 1 1 * Outpatient Services (Routine) - Closed Specialty Diagnoses / Procedures Referred By Kale t Referred To Contact Perinatology Diagnoses At risk for gestational diabetes mellitus Procedures US OB FOLLOW UP PER FETUS Toshia Rajan MD Phone: tel: fax: [facility] [place] [address] Phone: tel: fax: Referral ID Status Reason Start Date Expiration Date Visits Requested Visits Authorized [id number] Closed Ordering Department To Schedule 01/14/2018 02/14/2019 1 1 Encounter Details Date Type Department Care Team (Late st Contact Info) Description 01/14/2018 Ancillary Orders [facility] OBGYN[address] [place] [address] Toshia Rajan MD [address] [facility], [facility] [address] [place] [address] At risk for gestational diabetes [...] on file 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 Name: SANDRA PRESCOTT Study Date: 04/12/2018 10:35am Pat. NO: [id number] Referring MD: TOSHIA RAJAN Site: [facility] [employer] Volleyball Coach: Marlys Jones : 1985 Age: 32 INDICATION Maternal Hypertension, Chronic CODING Procedures 77891: OB US Follow-up HISTORY OB History 3. [...] 4 lb 9 oz EFW by Hadlock ([id number]) Head / Face / Neck Biometry: Cephalic index 0.79 44% Jeramie Social Media Analyst 6.1 mm Extremities / Bony Struc Biometry: [...] Note Jakob Galeana II, MD - 04/12/2018 [place] Follow Up Pat. Name:Stephan PRESCOTT Date:04/12/2018 10:35am Pat. NO: [id number] MD:TOSHIA RAJAN Site:[place] MFMSonographer:Marlys Jones :1985Age:32 INDICATION Maternal Hypertension, Chronic CODING Procedures 00404: OB US Follow-up HISTORY OB History 3. [...] 4 lb 9 oz EFW by Hadlock ([id number]) Head / Face / Neck Biometry: Cephalic index 0.7944% Nicolaides Social Media Analyst 6.1 mm Extremities / Bony Struc Biometry: [...] gestational age Narrative 03/15/2018 4:30 PM T [place] [facility] Pat. Name: SANDRA PRESCOTT Study Date: 03/15/2018 8:23am Pat. NO: [id number] Referring MD: OTSHIA RAJAN Site: [facility] [employer] Volleyball Coach: Karina Seymour : 1985 Age: 32 INDICATION Other Condition Dx: At risk for gestational diabetes mellitus [Z91.89 (ICD-10-CM)] CODING Diagnosis XXX.10: Other condition Z3A.28: Weeks Gestation of Procedures 82180: OB US Follow-up HISTORY OB History 3. [...] 3 lb 2 oz EFW by Hadlock ([id number]) Head / Face / Neck Biometry: Cephalic index 0.75 12% Nicolaides Social Media Analyst 5.7 mm Extremities / Bony Struc Biometry: [...] Kervin URIBE, Jakob Ornelas MD - 03/15/2018 [place] Follow Up Pat. Name:Stephan PRESCOTT Date:03/15/2018 8:23am Pat. NO: [id number] MD:TOSHIA RAJAN [facility] :1985Age:32 INDICATION Other Condition Dx: At risk for gestational diabetes mellitus [Z91.89 (ICD-10-CM)] CODING Diagnosis XXX.10: Other condition Z3A.28: Weeks Gestation of Procedures 24044: OB US Follow-up HISTORY OB History 3. [...] 3 lb 2 oz EFW by Hadlock ([id number]) Head / Face / Neck Biometry: Cephalic index 0.7512% Nicolaides Social Media Analyst 5.7 mm Extremities / Bony Struc Biometry: [...] INTERFACE SYSTEM - 02/17/2018 8:27 AM T [place] Echo Pat. Name: SANDRA PRESCOTT Study Date: 02/16/2018 8:22am Pat. NO: [id number] Referring MD: TOSHIA RAJAN Site: [facility] [employer] Volleyball Coach: Art Alcaraz : 1985 Age: 32 INDICATION Other Condition At risk for gestational diabetes mellitus [Z91.89 (ICD-10-CM)]; Family history of transposition of great vessels [Z82.79 (ICD-10-CM CODING Procedures 35704: Echo 2D 77219: Echo Spectral Doppler 40608: Doppler Color Flow Mapping HISTORY OB History [...] subcostal LVOT view normal RVOT view normal 7-hwjjih-uuhlhrt view normal, 3 vessel and 3 vessel [...] Note Jakob Galeana II, MD - 02/17/2018 [place] Echo Pat. Name:Stephan PRESCOTT Date:02/16/2018 8:22am Pat. NO: [id number] MD:TOSHIA RAJAN Site:[place] MFMSonographer:Art Alcaraz :1985Age:32 INDICATION Other Condition At risk for gestational diabetes mellitus [Z91.89 (ICD-10-CM)]; Family history of transposition of great vessels [Z82.79 (ICD-10-CM CODING Procedures 08303: Echo 2D 96667: Echo Spectral Doppler 16250: Doppler Color Flow Mapping HISTORY OB History [...] subcostal LVOT view normal RVOT view normal 8-fhbsbk-csbzwvm view normal, 3 vessel and 3 vessel [...] mellitus documented in this encounter Care Teams Delivery Of Shopping News Relationship Specialty Start Date End Date Tamiko Christensen MD [address] [place] [address] PCP - General Family Practice 05/14/17 documented as of this encounter
--- OUTSIDE RECORDS SUMMARY | 2025-04-19 07:57 | XMS_ITS | Encounter Summary ---
Author Organization [facility] Address [address] [place] [address] Care Team Providers Care Rehab Nurse Name Role Phone Tamiko Christensen MD Primary Care Provid er Reason for Referral * Outpatient Services (Routine) - Closed Specialty Diagnoses / Procedures Referred By Kale richardson Referred To Contact Perinatology Diagnoses At risk for gestational diabetes mellitus History of delivery, currently in second trimester Procedures OB TRANSVAGINAL Toshia Rajan MD Phone: tel: fax: [facility] [place] [address] Phone: tel: fax: Referral ID Status Reason Start Date Expiration Date Visits Requested Visits Authorized [id number] Closed Ordering Department To Schedule 01/18/2018 02/18/2019 1 1 Encounter Details Date Type Department Care Team (Late st Contact Info) Description 01/18/2018 Ancillary Orders [facility] OBGYN-[address] [place] [address] Toshia Rajan MD [address] [facility] [place] [address] [place] [address] At risk for gestational diabetes [...] on file 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
--- OUTSIDE RECORDS SUMMARY | 2025-04-19 07:57 | XMS_ITS | Encounter Summary ---
Author Organization [facility] Address [address] [place] [address] Care Team Providers Care Behavior Clinician Name Role Phone Kentrell Ann MD Primary Care Provider [phone] Encounter Details Date Type Department Care Team (Late st Contact Info) Description 04/18/2025 External Device Data [place] ABSTRACTION Provider, Abstract NO ADDRESS ON FILE Social History Tobacco Use Types Packs/Day Years Used Date Smoking Tobacco: Never Smokeless Tobacco: Never Alcohol Use Standard Drinks/Week Comments No 0 (1 standard drink = 0.6 oz pur e alcohol) Comments No Sex and Gender Information Value Date Recorded Sex Assigned at Not on file 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
--- OUTSIDE RECORDS SUMMARY | 2025-04-19 07:57 | XMS_ITS | Clinical Summary ---
Author Organization [facility] Address [address] [facility] Attn: Epic Prelude ADT JASON THORPE [address] Care Team Providers Care Welding Machine Assembler Name Role Phone Kentrell Ann MD Primary Care Provider [phone] Allergies Active Allergy Reactions Criticality Noted Date [...] 4 Active fluticasone propionate (FLONASE) 50 mcg/spray [place], Suspension nasal inhalerIndicatio ns:Environmental allergies Administer 2 [...] days 5 Active naloxone (Narcan) 4 mg/spray [place], Non-Aerosol as directed intranasally once 2 Active [...] Encounters Date Type Department Care Team Description 04/18/2025 External Device Data STL ABSTRACTION Provider, Abstract 04/18/2025 External Device Data STL ABSTRACTION Provider, Abstract 04/17/2025 Orders Only [facility] HIM [address] [place] [address] Provider, Abstract 03/28/2025 External Device Data STL ABSTRACTION Provider, Abstract 03/28/2025 External Device Data STL ABSTRACTION Provider, Abstract 03/28/2025 External Device Data STL ABSTRACTION Provider, Abstract 03/23/2025 12:14 PM CDT - 03/23/2025 3:30 PM CDT Emergency [facility] Emergency Medicine [address] [phone] Lowell Tejada, Hemiplegic migraine with status migrainosus, not intractable (Primary Dx); Psychogenic nonepileptic seizure Discharge Disposition: Home or Self Care 03/23/2025 Travel 03/23/[address] [phone] Kentrell Ann MD Clinical Consult Before Scheduling 03/20/2025 Orders Only [address] [place] [address] Provider, Abstract 03/20/[address] [phone] Kentrell Ann MD 03/17/2025 Results Follow-Up [address] [phone] Rashmi Wu FNP VITAMIN A LEVEL, COMPREHENSIVE METABOLIC PANEL, CBC WITH DIFFERENTIAL, Additional followed-up results: 3 03/14/2025 1:00 PM CDT Office Visit [address] [phone] Rashmi Wu FNP Hypoglycemia (Primary Dx); Missed menses; Vitamin A deficiency; Mild intermittent asthma, unspecified whether complicated 03/07/2025 External Device Data STL ABSTRACTION Provider, Abstract 03/01/2025 7:44 AM CDT - 03/01/2025 11:59 PM CDT Hospital [facility] Scan [facility] [address] [place] [phone] Elisa Hay FNP Discharge Disposition: Home or Self Care 03/01/2025 Orders Only [facility] [address] [place] [phone] Elisa Hay FNP 03/01/2025 Telephone [facility] [address] [phone] Kentrell Ann MD Patient Communication 03/01/2025 Results Follow-Up [facility] [address] [phone] ABDOMEN PELVIS W CONTRAST 02/22/2025 2:40 PM CDT Office Visit [address] [place] [address] Elisa Hay FNP Abdominal wall pain (Primary Dx); Irregular menses; Acute generalized abdominal pain 02/09/2025 External Device Data STL ABSTRACTION Provider, Abstract 01/23/2025 Orders Only [facility] [address] [place] [phone] Provider, Abstract from Last 3 Months Immunizations [...] the great vessels; lived 6h. born in [place]. 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 Blood us Abstract Provider CHEMISTRY ORDERABLES Final Res ult * (ABNORMAL) CBC WITH DIFFERENTIAL (03/23/2025 12:10 PM CDT) Only the most recent of2 resultswithin the time period is included. WBC 7.2 4.0 - 10.0 K/uL 03/23/2025 1:[facility] 4.65 3.93 - 5.22 M/uL 03/23/2025 1:49 PM [facility] HEMOGLOBIN 13.4 11.2 - 15.7 g/dL 03/23/2025 1:49 PM [facility] HEMATOCRIT 40.9 34.1 - 44.9 % 03/23/2025 1:49 PM [facility] MCV 88.0 79.4 - 94.8 fL 03/23/2025 1:49 PM [facility] MCH 28.8 25.6 - 32.2 pg 03/23/2025 1:49 PM [facility] MCHC 32.8 32.2 - 35.5 g/dL 03/23/2025 1:49 PM [facility] RDW 14.4 11.0 - 14.5 % 03/23/2025 1:49 PM [facility] RDW-STDEV 45.9 36.9 - 56.9 fL 03/23/2025 1:49 PM [facility] PLATELETS 258 163 - 337 K/uL 03/23/2025 1:49 PM [facility] MPV 12.1 10.0 - 14.8 fL 03/23/2025 1:49 PM [facility] NEUTROPHILS 68 34 - 71 % 03/23/2025 1:49 PM [facility] LYMPHOCYTES 24 19 - 52 % 03/23/2025 1:[address] [facility] MONOCYTES 6 5 - 13 % 03/23/2025 1:49 PM [facility] EOSINOPHILS 1 1 - 6 % 03/23/2025 1:49 PM [facility] BASOPHILS 0 0 - 1 % 03/23/2025 1:49 PM [facility] IMMATURE GRANULOCYTES 0 % 03/23/2025 1:49 PM [facility] NEUTROPHIL ABSOLUTE 4.89 1.56 - 6.13 K/uL 03/23/2025 1:49 PM [facility] LYMPHOCYTE ABSOLUTE 1.75 1.20 - 3.40 K/uL 03/23/2025 1:49 PM [facility] MONOCYTE ABSOLUTE 0.45(H) 0.24 - 0.36 K/uL 03/23/2025 1:49 PM [facility] EOSINOPHIL ABSOLUTE 0.05 0.04 - 0.36 K/uL 03/23/2025 1:49 PM [facility] BASOPHILS ABSOLUTE 0.03 0.01 - 0.08 K/uL 03/23/2025 1:49 PM [facility] IMMATURE GRANULOCYTES ABSOLUTE 0.03 K/uL 03/23/2025 1:49 PM [facility] Blood BLOOD SPECIMEN / Unknown Collection / Unknown 03/23/2025 12:10 PM CDT 03/23/2025 1:47 PM CDT us Lowell Tejada DO HEMATOLOGY ORDERABLES Final R esult [facility] [id number] [address] [place] [address] * TSH (03/23/2025 12:10 PM CDT) Only the most recent of2 resultswithin the time period is included. TSH 1.01 0.27 - 4.20 uIU/mL 03/23/2025 2:[address] [facility] Blood BLOOD SPECIMEN / Unknown Collection / Unknown 03/23/2025 12:10 PM CDT 03/23/2025 1:47 PM CDT Lowell [facility] CHEMISTRY ORDERABLES Final Re sult Performing Organization Address [facility] Co de Phone Number [facility] # [id number] [address] [place] [address] * ETHANOL LEVEL (03/23/2025 12:10 PM CDT) ETHANOL <10.10 <10.10 mg/dL 03/23/2025 2:[address] [facility] ETHANOL % <0.01 %w/v 03/23/2025 2:[address] [facility] Blood BLOOD SPECIMEN / Unknown Collection / Unknown 03/23/2025 12:10 PM CDT 03/23/2025 1:47 PM CDT [facility] CHEMISTRY ORDERABLES Final Re sult Performing Organization Address [facility]/ZIP Co de Phone Number [facility] CLIA # [id number] [address] [place] [address] * ACETAMINOPHEN LEVEL (03/23/2025 12:10 PM CDT) ACETAMINOPHEN LEVEL <5 0 - 30 ug/mL 03/23/2025 2:[address] [facility] Blood BLOOD SPECIMEN / Unknown Collection / Unknown 03/23/2025 12:10 PM CDT 03/23/2025 1:47 PM [address]T Narrative [facility] - 03/23/2025 2:19 PM CDT Therapeutic Range: 10-30 ug/mL The following Acetaminophen levels are associated with possible toxicity: 4 hours after dose >200 ug/mL 8 hours after dose >100 ug/mL 12 hours after dose >50 ug/mL [facility] CHEMISTRY ORDERABLES Final Re sult Performing Organization Address City/[facility] Co de Phone Number [facility] CLIA # [id number] [address] [place] [address] * SALICYLATE LEVEL (03/23/2025 12:10 PM CDT) SALICYLATE LEVEL <0.5 0.0 - 20.0 mg/dL 03/23/2025 2:[address] [facility] Blood BLOOD SPECIMEN / Unknown Collection / Unknown 03/23/2025 12:10 PM CDT 03/23/2025 1:47 PM [address]T Narrative [facility] - 03/23/2025 2:19 PM CDT Negative <3.0 mg/dL Therapeutic 3.0 - 10 mg/dL Toxicity >30 mg/dl [place] >60 mg/dL Lowell [facility] CHEMISTRY ORDERABLES Final Re sult Performing Organization Address [facility]/ZIP Co de Phone Number [facility] CLIA # [id number] [address] [place] [address] * PROTIME-INR (03/20/2025) ABSTRACTED PROTIME 12.7 ABSTRACTED INR 0.89 Blood 03/20/2025 Abstract Provider HEMATOLOGY ORDERABLES Final Re sult * VITAMIN A LEVEL (03/14/2025 1:21 PM CDT) Pathologist [facility] VITAMIN A LEVEL 45 38 - 98 mcg/dL [facility] Comment: (Note) Clin Chem Vol. 34.No.8. [id number]. 1998 Vitamin supplementation within 24 hours prior to blood draw may affect the accuracy of results. This test was developed and its analytical performance characteristics have been determined by [facility]. It has not been cleared or approved by the FDA. This assay has been validated pursuant to the CLIA regulations and is used for clinical purposes. [facility] [address] [address],[address] [facility] [address] Carlita Grant MD, PhD Test Performed at: [facility] [address] [place] [address], [address] [place] [address] Carlita Grant MD,PhD Blood 03/14/2025 1:21 PM CDT 03/15/2025 2:51 AM CDT Rashmi Wu [facility] CHEMISTRY ORDERABLES Fin al Result [facility] [phone] [facility] [address] [place] [address], [address] [place] [address] * HCG QUANTITATIVE, BLOOD (03/14/2025 1:21 PM CDT) [facility] HCG QUANT, BLOOD <5 mIU/mL [facility] Comment: Gestational Age Expected hCG values (mIU/mL) <1 Week: 5-50 1-2 Weeks: 50-500 2-3 Weeks: 100-5000 3-4 Weeks: 500-23437 4-5 Weeks: 1000-89833 5-6 Weeks: [address] 6-8 Weeks: [address]45-[address] 2-3 Months: [address] The table above provides only a very [...] or approved by the FDA or the glove cuffer of the assay. Test Performed at: [facility] [address] [place] [address] Lino Rosas MD Blood 03/14/2025 1:21 PM CDT 03/15/2025 2:51 AM CDT Rashmi Wu [facility] CHEMISTRY ORDERABLES Fin al Result Performing Organization Address [facility]/ZIP Co de Phone Number [facility] [phone] [facility] [address] [place] [address] * HEMOGLOBIN A1C (03/14/2025 1:21 PM CDT) Pathologist [facility] HEMOGLOBIN A1C 5.2 <5.7 % [facility] Comment: For the purpose of screening for the presence of diabetes: <5.7% Consistent with the absence of diabetes 5.7-6.4% Consistent with increased risk for diabetes (prediabetes) > or =6.5% Consistent with diabetes This assay result is consistent with a decreased risk of diabetes. Currently, no consensus exists regarding use of hemoglobin A1c for diagnosis of diabetes in children. According to [place] Diabetes Association (ADA) guidelines, hemoglobin A1c <7.0% represents optimal control in non- diabetic patients. Different metrics may apply to specific patient populations. Standards of Medical Care in Diabetes(ADA). ESTIMATED AVERAGE GLUCOSE (MG/DL) 103 mg/dL [facility] ESTIMATED AVERAGE GLUCOSE (MMOL/L) 5.7 mmol/L [facility] Comment: Test Performed at: [facility] [address] [place] [address] Lino Rosas MD Blood 03/14/2025 1:21 PM CDT 03/15/2025 2:51 AM CDT Rashmi Wu [facility] CHEMISTRY ORDERABLES Fin al Result Performing Organization Address City/[facility]/ZIP Co de Phone Number [facility] [phone] [facility] [address] [place] [address] * CT ABDOMEN PELVIS W CONTRAST (03/01/2025 [...] likely cysts or hemangiomas. Elisa Mullinsdaljit Hay [facility] CT ORDERABLES Final Re sult * CREATININE (03/01/2025 7:58 AM CDT) CREATININE 0.83 0.51 - 0.95 mg/dL 03/01/2025 8:[address] [facility] GFR >60 >=60 mL/min/1.7 3 sq meter 03/01/2025 8:[address] [facility] Comment:eGFR calculated with 2020 CKD-EPI equation. Vegetarian diet, extremely high or low muscle mass, and may affect results. Cystatin C with Glomerular Filtration Rate is a suitable alternative for these patients. Blood BLOOD SPECIMEN / Unknown Collection / Unknown 03/01/2025 7:58 AM CDT 03/01/2025 8:03 AM CDT Elisa Hay [facility] CHEMISTRY ORDERABLES Fin al Result Performing Organization Address City/[facility]/ZIP Co de Phone Number [facility] CLIA # [id number] [address] [place] [address] * POC , URINE (02/22/2025 2:48 PM CDT) HCG QUAL URINE POC Negative Negative, Indeterminate [facility] INTERNAL KIT QC POC [place] [facility] KIT LOT NUMBER POC [id number] [facility] KIT EXP DATE POC 08/28/2026 [facility] Urine 02/22/2025 2:48 PM CDT Elisa MARREROP POINT OF CARE TESTING Fi nal Result Performing Organization Address [facility] Co de Phone Number [facility] CLIA# [id number] [address] [facility] [address] [address] * CERV/VAG CYTO SCREEN PAP RLFX HPV (10/21/2017 11:52 AM ASSISTANT PLANT CONTROLLER) CLINICAL INFORMATION SEE COMMENT 10/26/2017 4:36 PM ASSISTANT PLANT CONTROLLER [facility] Comment:Information not prov ided LAST MENSTRUAL PERIOD SEE COMMENT 10/26/2017 4:36 PM ASSISTANT PLANT CONTROLLER [facility] Comment:INFORMATION NOT PROV IDED PREV PAP: SEE COMMENT 10/26/2017 4:36 PM ASSISTANT PLANT CONTROLLER [facility] Comment:INFORMATION NOT PROV IDED PREV BX: SEE COMMENT 10/26/2017 4:36 PM ASSISTANT PLANT CONTROLLER [facility] Comment:INFORMATION NOT PROV IDED SOURCE Endocervix 10/26/2017 4:36 PM ASSISTANT PLANT CONTROLLER [facility] ADEQUACY: SEE COMMENT 10/26/2017 4:36 PM ASSISTANT PLANT CONTROLLER [facility] Comment: Satisfactory for evaluation. Endocervical/transformation zone component present. Age and/or menstrual status not provided PAP INTERP SEE COMMENT 10/26/2017 4:36 PM ASSISTANT PLANT CONTROLLER [facility] Comment:Negative for intraep ithelial lesion or malignancy. COMMENT SEE COMMENT 10/26/2017 4:36 PM ASSISTANT PLANT CONTROLLER [facility] Comment: This Pap test has been evaluated with computer assisted technology. WAREHOUSE PRODUCTION WORKER: SEE COMMENT 2017 4:36 PM ASSISTANT PLANT CONTROLLER [facility] Comment: BES, CT(ASCP) CT screening location: [place] [address] Administration JASON Jain [address] Genital SWAB OF ENDOCERVIX / Unknown Collection / Unknown 10/21/2017 11:52 AM ASSISTANT PLANT CONTROLLER 10/23/2017 8:49 AM ASSISTANT PLANT CONTROLLER Narrative [facility] - 10/26/2017 4:36 PM ASSISTANT PLANT CONTROLLER Performing Organization Information: Site ID: [facility] Address: [facility] Administration JASON Welsh [address] Director: Lino Rosas MD Toshia Rajan MD PATHOLOGY/CYTOLOGY ORDERAB LES Final Result [facility] from Last 3 Months or Most Recently Relevant to Health Maintenance Insurance MEDICAID [place] Care Teams Welding Machine Assembler Relationship Specialty Start Date End Date Kentrell Ann MD [address] [phone] PCP - General Family Practice 11/30/23
--- OUTSIDE RECORDS SUMMARY | 2025-04-19 07:57 | XMS_ITS | Encounter Summary ---
Author Organization [facility] Address 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
--- OUTSIDE RECORDS SUMMARY | 2025-04-19 07:57 | XMS_ITS | Encounter Summary ---
Author Organization [facility] Address [address] [place] [address] Care Team Providers Care Glycerine Plant Operator Name Role Phone Kentrell Ann MD Primary Care Provider [phone] Encounter Details Date Type Department Care Team (Late st Contact Info) Description 04/17/2025 Orders Only [facility] [address] [place] [phone] Provider, Abstract NO ADDRESS ON FILE Social History Tobacco Use Types Packs/Day Years Used Date Smoking Tobacco: Never Smokeless Tobacco: Never Alcohol Use Standard Drinks/Week Comments No 0 (1 standard drink = 0.6 oz pur e alcohol) Comments No Sex and Gender Information Value Date Recorded Sex Assigned at Not on file 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 Gender Identity Not on file Sexual Orientation Not on file documented as of this encounter Plan of Treatment Not on file documented as of this encounter Procedures Procedure Name Priority Date/Time Associated Diagnosis Comments COMPREHENSIVE METABOLIC PANEL Routine 04/16/2025 3:11 PM CDT documented in this encounter Results * COMPREHENSIVE METABOLIC PANEL (04/16/2025 3:11 PM CDT) Blood us Abstract Provider CHEMISTRY ORDERABLES Final Res ult documented in this encounter Visit Diagnoses Not on filedocumented in this encounter Care Teams Glycerine Plant Operator Relationship Specialty Start Date End Date Kentrell Ann MD [address] [phone] PCP - General Family Practice 11/30/23 documented as of this encounter
--- OUTSIDE RECORDS SUMMARY | 2025-04-19 07:57 | XMS_ITS | Encounter Summary ---
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 Gender Identity Not on file Sexual Orientation Not on file documented as of this encounter Plan of Treatment Not on file documented as of this encounter Visit Diagnoses Diagnosis Family history of congenital anomalies documented in this encounter Additional Health Concerns Infection Onset Date Last Indicated Resolved Time MRSA Comment:RESOLVED 07/15/2010 07/15/2010 08/11/2011 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
--- OUTSIDE RECORDS SUMMARY | 2025-04-19 07:57 | XMS_ITS | Encounter Summary ---
Author Organization [facility] Address [address] [place] [address] Care Team Providers Care Cafe Manager Name Role Phone Tamiko Christensen MD [...] FETUSES Toshia Rajan MD Phone: tel: fax: [facility] [place] [address] Phone: tel: fax: Referral ID Status Reason Start Date Expiration Date Visits Requested Visits Authorized [id number] Closed Ordering Department To Schedule 04/09/2018 05/10/2019 [...] FETUSES Toshia Rajan MD Phone: tel: fax: [facility] and [address] [address] Phone: tel: fax: Referral ID Status Reason Start Date Expiration Date Visits Requested Visits Authorized [id number] Closed Ordering Department To Schedule 04/09/2018 05/10/2019 [...] FETUSES Toshia Rajan MD Phone: tel: fax: [facility] and [address] [address] Phone: tel: fax: Referral ID Status Reason Start Date Expiration Date Visits Requested Visits Authorized [id number] Closed Ordering Department To Schedule 04/09/2018 05/10/2019 [...] FETUSES Toshia Rajan MD Phone: tel: fax: [facility] [address] [address] Phone: tel: fax: Referral ID Status Reason Start Date Expiration Date Visits Requested Visits Authorized [id number] Closed Ordering Department To Schedule 04/09/2018 05/10/2019 1 1 * Outpatient Services (Routine) - Closed Specialty Diagnoses / Procedures Referred By Contac t Referred To Contact Perinatology Diagnoses HTN (hypertension), benign Diet controlled gestational diabetes mellitus (GDM) in third trimester Asthma, unspecified asthma severity, unspecified whether complicated, unspecified whether persistent Procedures US OB FOLLOW UP PER FETUS Toshia Rajan MD Phone: tel: fax: [facility] [place] [address] Phone: tel: fax: Referral ID Status Reason Start Date Expiration Date Visits Requested Visits Authorized [id number] Closed Ordering Department To Schedule 04/09/2018 05/10/2019 1 1 Encounter Details Date Type Department Care Team (Late st Contact Info) Description 04/09/2018 Ancillary Orders [facility] OBGYN[address] [place] [address] Toshia Rajan MD [address] [facility] [place] [address] HTN (hypertension), benign; Diet controlled [...] on file 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 Name: SANDRA PRESCOTT Study Date: 05/17/2018 10:50am Pat. NO: [id number] Referring MD: TOSHIA RAJAN Site: [facility] Gyn: Marlys Jones : 1985 Age: 32 INDICATION Other Condition Dx: HTN (hypertension), benign [I10 (ICD-10-CM)]; Diet controlled gestational diabetes mellitus (GDM) in third trimester [O24.410 (ICD-10-CM)]; Asthma, unspecified asthma severity, unspecified whether complicated, unspecified whether persistent [J45.909 (ICD-10-CM)] CODING Diagnosis XXX.10: Other condition Z3A.37: Weeks Gestation of Procedures 48639: Limited OB Ultrasound HISTORY OB History 3. [...] Note Jakob Galeana II, MD - 05/17/2018 [facility] Pat. Name:BASIL PRESCOTTAna Maria Date:05/17/2018 10:50am Pat. NO: [id number] MD:TOSHIA RAJAN [facility]ographer:Marlys Jones :1985Age:32 INDICATION Other Condition Dx: HTN (hypertension), benign [I10 (ICD-10-CM)]; Diet controlled gestational diabetes mellitus (GDM) in third trimester [O24.410 (ICD-10-CM)]; Asthma, unspecified asthma severity, unspecified whether complicated, unspecified whether persistent [J45.909 (ICD-10-CM)] CODING Diagnosis XXX.10: Other condition Z3A.37: Weeks Gestation of Procedures 17626: Limited OB Ultrasound HISTORY OB History 3. [...] biophysical profile Narrative 05/10/2018 3:07 PM T [facility] Pat. Name: SANDRA PRESCOTT Study Date: 05/10/2018 10:18am Pat. NO: [id number] Referring MD: TOSHIA RAJAN Site: [facility] Gyn: Francy Ross : 1985 Age: 32 INDICATION Maternal Hypertension, Chronic Diabetes - Gestational (unspecified) Maternal Asthma CODING Diagnosis O10.013: Pre-existing essential hypertension complicating O24.419: Gestational diabetes mellitus in , unspecified control O99.513: Diseases of the respiratory system complicating Z3A.36: Weeks Gestation of Procedures 13335: OB US Follow-up HISTORY OB History 3. [...] 7 lb 1 oz EFW by Hadlock ([id number]-FL) Head / Face / Neck Biometry: Cephalic [...] Note Jakob Galeana II, MD - 05/10/2018 [facility] Pat. Name:Stephan PRESCOTT Date:05/10/2018 10:18am Pat. NO: [id number] MD:TOSHIA RAJAN [facility] :1985Age:32 INDICATION Maternal Hypertension, Chronic Diabetes - Gestational (unspecified) Maternal Asthma CODING Diagnosis O10.013: Pre-existing essential hypertension complicating O24.419: Gestational diabetes mellitus in , unspecified control O99.513: Diseases of the respiratory system complicating Z3A.36: Weeks Gestation of Procedures 40304: OB US Follow-up HISTORY OB History 3. [...] 7 lb 1 oz EFW by Hadlock ([id number]-[id number]-FL) Head / Face / Neck Biometry: Cephalic [...] biophysical profile Narrative 05/03/2018 4:49 PM CDT [facility] Pat. Name: SANDRA PRESCOTT Study Date: 05/03/2018 1:56pm Pat. NO: [id number] Referring MD: TOSHIA RAJAN Site: [facility] Gyn: Marlys Jones : 1985 Age: 32 INDICATION Other Condition Dx: HTN (hypertension), benign [I10 (ICD-10-CM)]; Diet controlled gestational diabetes mellitus (GDM) in third trimester [O24.410 (ICD-10-CM)]; Asthma, unspecified asthma severity, unspecified whether complicated, unspecified whether persistent [J45.909 (ICD-10-CM)] CODING Diagnosis XXX.10: Other condition Z3A.35: Weeks Gestation of Procedures 81630: Limited OB Ultrasound HISTORY OB History 3. [...] Kervin URIBE, Jakob Ornelas MD - 05/03/2018 [facility] Pat. Name:Stephan PRESCOTT Date:05/03/2018 1:56pm Pat. NO: [id number] :TOSHIA CUELLARBONS [facility] :1985Age:32 INDICATION Other Condition Dx: HTN (hypertension), benign [I10 (ICD-10-CM)]; Diet controlled gestational diabetes mellitus (GDM) in third trimester [O24.410 (ICD-10-CM)]; Asthma, unspecified asthma severity, unspecified whether complicated, unspecified whether persistent [J45.909 (ICD-10-CM)] CODING Diagnosis XXX.10: Other condition Z3A.35: Weeks Gestation of Procedures 87843: Limited OB Ultrasound HISTORY OB History 3. [...] biophysical profile Narrative 04/26/2018 5:03 PM CDT [facility] Pat. Name: SANDRA PRESCOTT Study Date: 04/26/2018 11:02am Pat. NO: [id number] Referring MD: TOSHIA RAJAN Site: [facility] Gyn: Marlys Jones : 1985 Age: 32 INDICATION Other Condition Dx: HTN (hypertension), benign [I10 (ICD-10-CM)]; Diet controlled gestational diabetes mellitus (GDM) in third trimester [O24.410 (ICD-10-CM)]; CODING Diagnosis XXX.10: Other condition Z3A.34: Weeks Gestation of Procedures 53453: Limited OB Ultrasound HISTORY OB History 3. [...] Kervin URIBE, Jakob Ornelas MD - 04/26/2018 [facility] Pat. Name:SANDRA PRESCOTTZan Date:04/26/2018 11:02am Pat. NO: [id number] MD:TOSHIA RAJAN [facility]onographer:Marlys Jones :1985Age:32 INDICATION Other Condition Dx: HTN (hypertension), benign [I10 (ICD-10-CM)]; Diet controlled gestational diabetes mellitus (GDM) in third trimester [O24.410 (ICD-10-CM)]; CODING Diagnosis XXX.10: Other condition Z3A.34: Weeks Gestation of Procedures 88722: Limited OB Ultrasound HISTORY OB History 3. [...] biophysical profile Narrative 04/19/2018 4:25 PM CDT [facility] Pat. Name: SANDRA PRESCOTT Study Date: 04/19/2018 11:51am Pat. NO: [id number] Referring MD: TOSHIA RAJAN Site: [facility] Gyn: Marlys Jones : 1985 Age: 32 INDICATION Diabetes - Gestational (insulin) CODING Diagnosis O24.414: Gestational diabetes mellitus in , insulin controlled Z3A.33: Weeks Gestation of Procedures 01795: Limited OB Ultrasound HISTORY OB History 3. [...] Note Jakob Galeana II, MD - 04/19/2018 [facility] Name:Stephan PRESCOTT Date:04/19/2018 11:51am Pat. NO: [id number] MD:TOSHIA RAJAN [facility] :1985Age:32 INDICATION Diabetes - Gestational (insulin) CODING Diagnosis O24.414: Gestational diabetes mellitus in , insulin controlled Z3A.33: Weeks Gestation of Procedures 34434: Limited OB Ultrasound HISTORY OB History 3. [...] persistent documented in this encounter Care Teams Cafe Manager Relationship Specialty Start Date End Date Tamiko Christensen MD [address] [phone] PCP - General Family Practice 05/14/17 documented as of this encounter
--- OUTSIDE RECORDS SUMMARY | 2025-04-19 07:57 | XMS_ITS | Encounter Summary ---
Author Organization [facility] Address [address] [place] [address] Care Team Providers Care Weekend Anchor Name Role Phone Kentrell Ann MD Primary Care Provider [phone] Encounter Details Date Type Department Care Team (Latest Contact Info) Description 10/07/2024 Results Follow-Up [facility] OBVeronica Garcia Sheri [address] [place] [address] Efrain Quinn DO [address] [place] [address] ESTRADIOL, HCG QUANTITATIVE, BLOOD, PROGESTERONE Social History Tobacco Use Types Packs/Day Years Used Date Smoking Tobacco: Never Smokeless Tobacco: Never Alcohol Use Standard Drinks/Week Comments No 0 (1 standard drink = 0.6 oz pur e alcohol) Comments Yes Sex and Gender Information Value Date Recorded Sex Assigned at Not on file Legal 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 Her estrogen is in the normal range. Her HCG and progesterone are very low, which indicates the beginning of a menstrual cycle and nocurrent . ATIONAL COORDINATOR documented in this encounter Plan of Treatment Not on file documented as of this encounter Visit Diagnoses Not on filedocumented in this encounter Care Teams Weekend Anchor Relationship Specialty Start Date End Date Kentrell Ann MD [address] [phone] PCP - General Family Practice 11/30/23 documented as of this encounter
--- OUTSIDE RECORDS SUMMARY | 2025-04-19 07:57 | XMS_ITS | Patient Health Record ---
Author Organization [facility] Address [address] [place], [place] [address] Care Team Providers Care Sample Display Preparer Name Role Phone Kentrell Ann MD Primary Care Provider Unavailivone Boo MD, Tavon Unavailable [phone] Xena Horton DO Unavailable Unavailable Allergies Allergen [...] Active Results Component Value Reference Range Notes Embedded PDF Reviewed date:08/01/2024 07:48:57 AM Interpretation: Performing Lab: Notes/Report: [employer], [address], [facility] [place] [address], , L ab Director: Renata Damico MD, CLIA ID# [id number] Urine tox screen / MS if ind [...] fentanyl: Fentanyl Negative. Carfentan [place]: Fentanyl Negative. [facility], [address] [address], , L ab Director: Renata Damico MD, CLIA ID# [id number] Urine tox screen / MS if ind icated Reviewed date:08/01/2024 07:49:17 AM Interpretation:Consistent Performing Lab: Notes/Report: Consistent [facility] Results Reviewed date:08/01/2024 07:48:48 AM Interpretation: Performing Lab:[id number] [employer], [address] [place] [address] Renata Damico MD Notes/Report: [employer], [address] [place] [address], , L ab Director: Renata Damico MD, CLIA ID# [id number] OPIATES SCREEN negative 300 ng/mL OXYCODONE SCREEN negative 100 ng/mL Oxymorphone Quantification negative 50 ng/mL BUPRENORPHINE SCREEN negative 10 ng/mL FENTANYL SCREEN negative 2 ng/mL METHADONE SCREEN negative 300 ng/mL TRAMADOL SCREEN negative 200 ng/mL Tramadol Quantification negative 100 ng/mL W-ydmrvaowv-vvcgtpqc Quantification negative 100 n g/mL O-Bhwbharxb-Wqebbqdk Quantification negative 100 n g/mL Tapentadol Quantification [...] 10 ng/mL Flubromazolam Quantification negative 10 ng/mL MOY624 metabolite Quantification negative 10 ng/mL AHD151 metabolite Quantification negative 10 ng/mL RCS4 metabolite Quantification negative 10 ng/mL XLR11/UR144 metabolite negative 10 ng/mL 5F-ADB-M7 negative 10 ng/mL GJ-HFDBADCG-A1 negative 10 ng/mL YTBA-DMUXDJUU-L3 negative 10 ng/mL Eutylone Quantification negative 10 ng/mL Methylone Quantification negative 3 ng/mL Xylazine Quantification negative 10 ng/mL 4-hydroxy Xylazine Quantification negative 10 ng/m L Mitragynine (Kratom alkaloid) Quantification negative 1 ng/mL 0-NP-Iiohlawsudm (Kratom alk aloid) Quantification negative 1 ng/mL CREATININE normal-308.1 >20 mg/dL mg/dL OXIDANT normal-0 <200 ug/mL ug/mL PH normal-5.7 4.5 - 9.5 SPECIFIC GRAVITY normal-1.028 1.003 - 1.035 [employer] Results Reviewed date:11/21/2024 09:25:45 AM Interpretation: Performing Lab:[id number] [employer], [address] [address] Renata Damico MD Notes/Report: [employer], [address] [facility], [facility] [address] [address], , L ab Director: Renata Damico MD, CLIA ID# [id number] OPIATES SCREEN negative 300 ng/mL Codeine Quantification [...] 200 ng/mL Tramadol Quantification positive-470.442 100 ng/mL E-xegagjgcp-ywubivoz Quantification positive-7635.698 100 ng/mL N-Ptetzmfoy-Nsqaqtpf Quantification negative 100 n g/mL Tapentadol Quantification negative 50 ng/mL BENZODIAZEPINES SCREEN negative 200 ng/mL Alpha-Hydroxyalprazolam Quantification negative 20 ng/mL 3-Ekvdu-Pdctldyruz Quantification negative 20 ng/m L Lorazepam Quantification [...] 10 ng/mL Flubromazolam Quantification negative 10 ng/mL UWT608 metabolite Quantification negative 10 ng/mL NXB995 metabolite Quantification negative 10 ng/mL RCS4 metabolite Quantification negative 10 ng/mL XLR11/UR144 metabolite negative 10 ng/mL 5F-ADB-M7 negative 10 ng/mL TD-TUEWYEOQ-R5 negative 10 ng/mL WLBR-EQJLSUMK-A9 negative 10 ng/mL Eutylone Quantification negative 10 ng/mL Methylone Quantification negative 3 ng/mL Xylazine Quantification negative 10 ng/mL 4-hydroxy Xylazine Quantification negative 10 ng/m L Mitragynine (Kratom alkaloid) Quantification negative 1 ng/mL 1-MH-Cvmoqminopv (Kratom alk aloid) Quantification negative 1 ng/mL CREATININE normal-120.0 >20 mg/dL mg/dL OXIDANT normal-0 <200 ug/mL ug/mL PH normal-7.5 4.5 - 9.5 SPECIFIC GRAVITY normal-1.016 1.003 - 1.035 Reason For Referral Reason Evaluation for possi ble treatment (clinic closing due to provider's mcfp) Diagnosis 1 Vertebrogenic low ba ck pain (M54.51) Diagnosis 2 Spondylosis without myelopathy or radiculopathy, lumbar region (M47.816) Diagnosis 3 Spinal stenosis, lum bar region with neurogenic claudication (M48.062) Referral Organization [facility] Referring Provider First Name Tavon Referring Provider [...] prn pain (hold within 4H of planned sleep); Duration: 28 days ICD-10: G89.29 01/05/2025 Active cyclobenzaprine 5 mg 1 tab orally Q24H p rn spasm; Duration: 28 days Active Vitamin D3 125 mcg [...] W/U Status Risk Notes Problem Solitary sacroiliitis (522031082) Sacroiliitis, not elsewhere classified (M46.1) Active confirmed Problem Lumbosacral spondylosis without myelopathy (42417109) Spondylosis without myelopathy or radiculopathy, lumbar region (M47.816) Active confirmed partial sacralization of L5 with left L5-S1 transverse process pseudo articulation as per CT scan report (indicating possible transitional L5 vertebra: transitional anatomy noted via subsequent fluoroscopy) Problem High risk drug monitoring status (679638561) MCFP (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 analgesic (Z79.891) Active confirmed Problem Anxiety disorder (729371647) Other specified anxiety disorders (F41.8) Active confirmed Problem Hypersomnia (47100461) Hypersomnia, unspecified (G47.10) Active confirmed Problem Obstructive sleep apnea syndrome (72638481) Obstructive sleep apnea (adult) (pediatric) (G47.33) Active confirmed Problem Chronic pain (82056252) Other chronic pain (G89.29) Active confirmed Problem Cervicalgia (74607672) Cervicalgia (M54.2) Active confirmed Problem Pain in thoracic spine (529358650) Pain in thoracic spine (M54.6) Active confirmed Problem Backache (242293419) Dorsalgia, unspecified (M54.9) Active confirmed Problem Fibromyalgia (042144217) Fibromyalgia (M79.7) Active confirmed Problem Long-term current use of drug therapy (938692126) Other assisted (current) drug therapy (Z79.899) Active confirmed Problem Neurogenic claudication (766742572) Spinal stenosis, lumbar region with neurogenic claudication (M48.062) Active confirmed Problem Myalgia (95426429) Myalgia of auxiliary muscles, head and neck (M79.12) Active confirmed Problem Muscle pain (69527491) Myalgia, other site (M79.18) Active confirmed Problem Headache (86051812) Headache, unspecified (R51.9) Active confirmed Problem Pain in lumbar spine (626636319) Vertebrogenic low back pain (M54.51) Active confirmed Vital Signs Temperature 97.8 degrees Fahrenheit 01/05/2025 Blood pressure diastolic 81 mm Hg 01/05/2025 Oximetry 100 % 01/05/2025 Height 64 in 01/05/2025 Blood pressure systolic 115 mm Hg 01/05/2025 Weight 170.2 lbs 01/05/2025 BMI 29.21 kg/m2 01/05/2025 Encounters Encounter Location Date Provider Diagnosis [employer] [facility] [address] [place], [place] [id number] 05/17/2024 Tavon Boo Myalgia of auxiliary muscles, head and neck M79.12 ; Headache, unspecified R51.9 ; Sacroiliitis, not elsewhere classified M46.1 ; Spondylosis without myelopathy or radiculopathy, lumbar region M47.816 ; Other chronic pain G89.29 ; Myalgia, other site M79.18 ; Vertebrogenic low back pain M54.51 and Obstructive sleep apnea (adult) (pediatric) G47.33 [employer] [facility] [address] [place], [place] [id number] 05/31/2024 Tavon Boo Procedure and treatment not carried out because of patient's decision for unspecified reasons Z53.20 [employer] [facility] [address] [place], [place] [id number] 07/27/2024 Tavon Boo Myalgia of auxiliary muscles, head and neck M79.12 ; Headache, unspecified R51.9 ; Sacroiliitis, not elsewhere classified M46.1 ; Spondylosis without myelopathy or radiculopathy, lumbar region M47.816 ; Other chronic pain G89.29 ; Myalgia, other site M79.18 ; Vertebrogenic low back pain M54.51 ; Obstructive sleep apnea (adult) (pediatric) G47.33 and intermediate teacher (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 analgesic Z79.891 [facility] [address] [place], [place] [id number] 08/10/2024 Tavon Boo Myalgia of auxiliary muscles, head and neck M79.12 ; Headache, unspecified R51.9 ; Sacroiliitis, not elsewhere classified M46.1 ; Spondylosis without myelopathy or radiculopathy, lumbar region M47.816 ; Other chronic pain G89.29 ; Myalgia, other site M79.18 ; Vertebrogenic low back pain M54.51 and Obstructive sleep apnea (adult) (pediatric) G47.33 [facility] [address] [place], [place] [id number] 08/24/2024 Tavon Boo Myalgia of auxiliary muscles, head and neck M79.12 ; Headache, unspecified R51.9 ; Sacroiliitis, not elsewhere classified M46.1 ; Spondylosis without myelopathy or radiculopathy, lumbar region M47.816 ; Other chronic pain G89.29 ; Myalgia, other site M79.18 ; Vertebrogenic low back pain M54.51 and Obstructive sleep apnea (adult) (pediatric) G47.33 [facility] [address] [place], [place] [id number] 10/05/2024 Tavon Boo Myalgia of auxiliary muscles, head and neck M79.12 ; Headache, unspecified R51.9 ; Sacroiliitis, not elsewhere classified M46.1 ; Spondylosis without myelopathy or radiculopathy, lumbar region M47.816 ; Other chronic pain G89.29 ; Myalgia, other site M79.18 ; Vertebrogenic low back pain M54.51 and Obstructive sleep apnea (adult) (pediatric) G47.33 [facility] [address] [place], [place] [id number] 11/16/2024 Tavon Boo Other chronic pain G89.29 ; Vertebrogenic low back pain M54.51 ; Myalgia of auxiliary muscles, head and neck M79.12 ; Headache, unspecified R51.9 ; Sacroiliitis, not elsewhere classified M46.1 ; Spondylosis without myelopathy or radiculopathy, lumbar region M47.816 ; Myalgia, other site M79.18 ; Obstructive sleep apnea (adult) (pediatric) G47.33 and intermediate teacher (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 analgesic Z79.891 [facility] [address] [place], [place] [id number] 11/23/2024 Tavon Boo Spondylosis without myelopathy or radiculopathy, lumbar region M47.816 ; Other specified anxiety disorders F41.8 ; Myalgia of auxiliary muscles, head and neck M79.12 ; Headache, unspecified R51.9 ; Other chronic pain G89.29 ; Myalgia, other site M79.18 ; Vertebrogenic low back pain M54.51 ; Sacroiliitis, not elsewhere classified M46.1 and Obstructive sleep apnea (adult) (pediatric) G47.33 [facility] [address] [place] [address] 12/05/2024 Tavon Boo Spondylosis without myelopathy or radiculopathy, lumbar region M47.816 and Other specified anxiety disorders F41.8 [facility], [facility] [address] [place] [id number] 01/05/2025 Tavon Boo Other chronic pain G89.29 ; Vertebrogenic low back pain M54.51 ; Myalgia, other site M79.18 and Obstructive sleep apnea (adult) (pediatric) G47.33 [facility], [facility] [address] [place] [id number] 07/13/2024 Tavon Boo [facility], [address] [id number] 11/17/2024 Tavon Boo [facility], [address] [id number] 12/19/2024 Tavon Boo [facility], [address] [id number] 01/26/2025 Tavon Boo Assessments Encounter Date Diagnosis (ICD Code) Assessment Notes Treatment Notes Treatment Clinical Notes Section Notes 05/31/2024 Procedure and treatment not carried out because of patient's decision for unspecified reasons (ICD-10 - Z53.20) 07/27/2024 Myalgia of auxiliary muscles, head and [...] post TPIs targeting upper cervical region. 11/23/2024 Spondylosis without myelopathy or radiculopathy, lumbar [...] post TPIs targeting upper cervical region. 01/05/2025 Vertebrogenic low back pain (ICD-10 - [...] move. Plan to continue oral opioid medication. 10/05/2024 Myalgia of auxiliary muscles, head and [...] relief. Plan TPIs at today's visit. 08/24/2024 Headache, unspecified (ICD-10 - R51.9) Headache benefit has been appreciated by patient post TPIs targeting upper cervical region. 10/05/2024 Headache, unspecified (ICD-10 - R51.9) Headache benefit has been appreciated by patient post TPIs targeting upper cervical region. 01/05/2025 Myalgia, other site (ICD-10 - M79.18) Patient reports benefit with use of Flexeril for her spasms. Plan to continue. 12/05/2024 Other specified anxiety disorders (ICD-10 - F41.8) Plan monitored anesthesia care. 05/17/2024 Sacroiliitis, not elsewhere classified (ICD-10 - [...] by patient. Plan TPIs at today's visit. 08/10/2024 Sacroiliitis, not elsewhere classified (ICD-10 - M46.1) Previous bilateral sacral denervation procedure via RFA completed with maintained efficacy appreciated by patient for 7 months; repeat procedure completed with maintained good benefit as of 08/10/24. 07/27/2024 Headache, unspecified (ICD-10 - R51.9) Headache benefit has been appreciated by patient post TPIs targeting upper cervical region. 07/27/2024 Sacroiliitis, not elsewhere classified (ICD-10 - M46.1) Previous bilateral sacral denervation procedure via RFA completed with maintained efficacy appreciated by patient for 7 months; repeat procedure completed and patient states today significant benefit which has been maintained. 08/10/2024 Spondylosis without myelopathy or radiculopathy, lumbar region (ICD-10 - M47.816) partial sacralization of L5 with left L5-S1 transverse process pseudo articulation as per CT scan report (indicating possible transitional L5 vertebra: transitional anatomy noted via subsequent fluoroscopy) Prior lumbar RFA procedures with history of efficacy appreciated by patient. Most recent lumbar RFA procedure with maintained efficacy as of 08/10/24. 11/16/2024 Headache, unspecified (ICD-10 - R51.9) Headache benefit has been appreciated by patient post TPIs targeting upper cervical region. 11/23/2024 Headache, unspecified (ICD-10 - R51.9) Headache [...] to continue opioid restriction related to sleep. 10/05/2024 Sacroiliitis, not elsewhere classified (ICD-10 - [...] with maintained good benefit as of 08/24/24. 08/24/2024 Spondylosis without myelopathy or radiculopathy, lumbar [...] with maintained good benefit as of today. 05/17/2024 Other chronic pain (ICD-10 - G89.29) [...] patient due to and efficacious interventional treatment. 11/23/2024 Other chronic pain (ICD-10 - G89.29) [...] procedure with maintained efficacy as of 06/26/24. 08/10/2024 Myalgia, other site (ICD-10 - M79.18) TPIs with history of short term benefit appreciated by patient. Oral relaxant medication has been discontinued by patient due to . 07/27/2024 Other chronic pain (ICD-10 - G89.29) [...] of benefit. Plan to continue medication management. 10/05/2024 Other chronic pain (ICD-10 - G89.29) Decreased pain medication use has been reported by patient due to and efficacious interventional treatment. 08/24/2024 Other chronic pain (ICD-10 - G89.29) Decreased pain medication use reported by patient due to and efficacious interventional treatment. 08/24/2024 Myalgia, other site (ICD-10 - M79.18) [...] recent lumbar and sacral RFA procedures. 11/23/2024 Vertebrogenic low back pain (ICD-10 - M54.51) Chronic axial lumbosacral spine pain. 11/16/2024 Myalgia, other site (ICD-10 - M79.18) TPIs with history of efficacy appreciated by patient. Patient to notify this office if her oral relaxant medication is still efficacious as it was filled in 2021. Will refill when requested. 07/27/2024 Myalgia, other site (ICD-10 - M79.18) TPIs with history of short term benefit appreciated by patient. Oral relaxant medication has been discontinued by patient due to . 08/10/2024 Vertebrogenic low back pain (ICD-10 - M54.51) Chronic axial lumbosacral spine pain. Maintained improvement noted post most recent lumbar and sacral RFA procedures. 08/10/2024 Obstructive sleep apnea (adult) (pediatric) (ICD-10 [...] lumbar and sacral RFA procedures, below. 10/05/2024 Vertebrogenic low back pain (ICD-10 - M54.51) Chronic axial lumbosacral spine pain. Maintained improvement noted post most recent lumbar and sacral RFA procedures, below. 08/24/2024 Obstructive sleep apnea (adult) (pediatric) (ICD-10 [...] of her CPAP device as of 10/05/24 11/16/2024 MCFP (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 analgesic (ICD-10 - Z79.891) 2022 opioid (OUD) risk tool score = 4. This places the patient in the high risk category, warranting more frequent screening. Plan 2 month visit pending continued compliance with patient's Treatment Agreement. Plan urine toxicology screen today with Gradeable to monitor for presence of any unprescribed [...] with use of her CPAP device. 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 This places the patient in the high risk category, warranting more frequent screening. Plan urine toxicology screen today with Grade[employer] to monitor for presence of any unprescribed [...] clinic is closing due to Dr. Boo's mcfp; see scanned document. Terminal prescriptions were given to the patient along with tapering instructions. 11/16/2024 Other The service was provided by LESLI Olesn, as part of the ongoing care plan [...] End Date [place] [address] [place] [id number] Sandra Florez Self - patient is the [...] History Surgery Date(Month/Year) Breast reduction, performed in [place] , [place], 2008 Panniculectomy, performed at [facility] in [place], [place], 2013 Cholecystectomy, performed at [facility] in [place], [place], 2016 Hernia repair, performed at [facility], 2012, 2 020 Endoscopy with biopsy of sma ll intestine, performed at [facility] by Dr. Clemente, 01/28/23 Hernia repair, performed at [facility] by Dr. Lambert roberson, 02/02/23 Gastric bypass, performed at [facility] in [place], [place], 11/18/23 Hospitalization History Reason Date(Month/Year) Child , treated at [facility], 2008, 2011, 2017, 2019, 2020
--- OUTSIDE RECORDS SUMMARY | 2025-04-19 07:57 | XMS_ITS | Clinical Summary ---
Author Organization [facility] Address [address] [place] [address] Phone Care Team Providers Care Industrial Engineering Name Role Phone Tamiko Christensen MD Primary Care Provid er Allergies Active Allergy Reactions Criticality Noted Date Comments [employer] Other (See Comments) 05/14/2017 Sneezing. Imipramine Rash Low 04/28/2010 Oxybenzone-Padimate O Rash Medium 03/30/2011 Medications inm44-lufk-EB no6-dha 28 mg iron- 1 mg-400 mg [...] the great vessels; lived 6h. born in [place], [place]. High Cholesterol Sister 1 Unknown Sister [...] on file Legal Sex Female 11:09 AM FOREST BOTANY INSTRUCTOR Gender Identity Not on file Sexual Orientation [...] PAP RLFX HPV Routine 10/21/2017 11:52 AM FOREST BOTANY INSTRUCTOR Encounter for screening of mother from Last 3 Months or Most Recently Relevant to Health Maintenance Results * GLUCOSE FASTING (07/01/2018 10:38 AM CDT) Pathologist [facility] GLUCOSE-FASTIN G 91 74 - 99 mg/dL 07/01/2018 11:57 AM CDT [facility] Blood Venipuncture / Unknown 07/01/2018 10:38 AM CDT 07/01/2018 10:38 AM CDT Jakob Galeana II, MD CHEMISTRY ORDERABLES Fatuma murphy Result [facility] CLIA# [id number] [facility] [address] [place] [address] * CERV/VAG CYTOPATH, THIN PREP IMAGR RFLX HPV (10/21/2017 11:52 AM FOREST BOTANY INSTRUCTOR) CLINICAL INFORMATION SEE COMMENT 10/26/2017 4:36 PM FOREST BOTANY INSTRUCTOR [facility] Comment:Information not prov ided LAST MENSTRUAL PERIOD SEE COMMENT 10/26/2017 4:36 PM FOREST BOTANY INSTRUCTOR [facility] Comment:INFORMATION NOT PROV IDED PREV PAP: SEE COMMENT 10/26/2017 4:36 PM FOREST BOTANY INSTRUCTOR [facility] Comment:INFORMATION NOT PROV IDED PREV BX: SEE COMMENT 10/26/2017 4:36 PM FOREST BOTANY INSTRUCTOR [facility] Comment:INFORMATION NOT PROV IDED SOURCE [employer] 10/26/2017 4:36 PM FOREST BOTANY INSTRUCTOR [facility] ADEQUACY: SEE COMMENT 10/26/2017 4:36 PM FOREST BOTANY INSTRUCTOR [facility] Comment: Satisfactory for evaluation. Endocervical/transformation zone component present. Age and/or menstrual status not provided PAP INTERP SEE COMMENT 10/26/2017 4:36 PM FOREST BOTANY INSTRUCTOR [facility] Comment:Negative for intraep ithelial lesion or malignancy. COMMENT SEE COMMENT 10/26/2017 4:36 PM FOREST BOTANY INSTRUCTOR [facility] Comment: This Pap test has been evaluated with computer assisted technology. RESIDENTIAL ASSISTANT: SEE COMMENT 2017 4:36 PM FOREST BOTANY INSTRUCTOR [facility] Comment: BES, CT(ASCP) CT screening location: [place] [address] Administration JASON Jain [address] Genital SWAB OF ENDOCERVIX / Unknown Collection / Unknown 10/21/2017 11:52 AM FOREST BOTANY INSTRUCTOR 10/22/2017 7:47 AM FOREST BOTANY INSTRUCTOR Narrative [facility] - 10/26/2017 4:36 PM FOREST BOTANY INSTRUCTOR Performing Organization Information: Site ID: Name: [facility] Address: [facility] [place] [address] Director: Lino Rosas MD Toshia Rajan MD PATHOLOGY/CYTOLOGY ORDERAB LES Final Result Performing Organization Address City/State/[facility] Co de Phone Number [facility] from Last 3 Months or Most Recently Relevant to Health Maintenance Insurance [employer] [facility] MEDICAID [place] Advance Directives For more information, please contact: [phone] * Full Code (Latest Code Status on [...] 11:38 AM 06/07/2013 4:40 PM Care Teams Industrial Engineering Relationship Specialty Start Date End Date Tamiko Christensen MD [address] [place] [address] PCP - General Family Practice 05/14/17
--- OUTSIDE RECORDS SUMMARY | 2025-04-19 07:57 | XMS_ITS | Encounter Summary ---
Author Organization [facility] Address [address] [place] [address] Care Team Providers Care Programs Director Name Role Phone Kentrell Ann MD Primary Care Provider [phone] Encounter Details Date Type Department Care Team (Latest Contact Info) Description 03/17/2025 Results Follow-Up [facility] Family Medicine [place] [address] [address] Rashmi Wu, [facility] [address] [address] VITAMIN A LEVEL, COMPREHENSIVE METABOLIC [...] on file Legal Sex Female 4:38 AM POLICY INTERN Gender Identity Not on file Sexual Orientation Not on file documented as of this encounter Plan of Treatment Not on file documented as of this encounter Visit Diagnoses Not on filedocumented in this encounter Care Teams Programs Director Relationship Specialty Start Date End Date Kentrell Ann MD [address] [address] PCP - General Family Practice 11/30/23 documented as of this encounter
--- OUTSIDE RECORDS SUMMARY | 2025-04-19 07:57 | XMS_ITS | Encounter Summary ---
Author Organization [facility] Address [address] [place] [address] Care Team Providers Care Librarian Head Name Role Phone Tamiko Christensen MD Primary Care Provid er Reason for Referral * Outpatient Services (Routine) - Closed Specialty Diagnoses / Procedures Referred By Kale richardson Referred To Contact Perinatology Diagnoses At risk for gestational diabetes mellitus Family history of transposition of great vessels Procedures US OB FOLLOW UP PER FETUS Bill Rajan MD Phone: tel: fax: [facility] [place] [address] Phone: tel: fax: Referral ID Status Reason Start Date Expiration Date Visits Requested Visits Authorized [id number] Closed Ordering Department To Schedule 02/11/2018 03/14/2019 1 1 Encounter Details Date Type Department Care Team (Late st Contact Info) Description 02/11/2018 Ancillary Orders [facility] OBGYN-[address] [place] [address] Bill Rajan MD [address] 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 Name: DEANDRE PRESCOTT Study Date: 02/16/2018 8:12am Pat. 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 [...] 1 lb 13 oz EFW by Hadlock ([id number]) Head / Face / Neck Biometry: Cephalic index 0.73 6% Nicolaides Supplier Quality Manager 3.0 mm Extremities / Bony Struc Biometry: [...] Jakob Galeana II, MD - 02/17/2018 [place] Follow Up Pat. Name:Stephan PRESCOTT Date:02/16/2018 8:12am Pat. NO: [id number] MD:BILL RAJAN [facility] :1985Age:32 INDICATION Other Condition At risk for gestational diabetes mellitus [Z91.89 (ICD-10-CM)]; Family history of transposition of great vessels [Z82.79 (ICD-10-CM)] CODING Procedures 79013: OB US Follow-up HISTORY OB History 3. [...] 1 lb 13 oz EFW by Hadlock ([id number]) Head / Face / Neck Biometry: Cephalic index 0.73 6% Nicolaides Supplier Quality Manager 3.0 mm Extremities / Bony Struc Biometry: [...] anomalies documented in this encounter Care Teams Librarian Head Relationship Specialty Start Date End Date Tamiko Christensen MD [address] [place] [phone] PCP - General Family Practice 05/14/17 documented as of this encounter
--- OUTSIDE RECORDS SUMMARY | 2025-04-19 07:57 | XMS_ITS | Patient Health Record ---
Author Organization [facility] Address [address] [place] [address] Care Team Providers Care Mud Logger Name Role Phone Kentrell Ann MD Primary Care Provider Unavailivone hathaway SmileyAngelina Denita Unavailable [phone] Allergies Allergen (clinical drug ingredient) Drug/Non Drug Allergy documented on EMR Reaction Allergy Type Onset Date Status aspirin Aspirin low BP Drug Allergy Active duloxetine DULoxetine tachycardia Drug Allergy Act gary imipramine Imipramine rash Drug Allergy Activ e Results Component Value Reference Range Flag Notes Tox Results Reviewed date:03/07/2025 12:17:21 PM Interpretation: Performing Lab: Notes/Report: Urine Drug Screen (cup read) - 45213 Reviewed date:02/28/2025 09:07:59 AM Interpretation: Performing Lab: Notes/Report: AMP - PRAVEENA - BUP - BZO - MDMA - OPI + PCP - OXY - MTD - MAMP - Urine Confirmation Panel (in strument) - 85361 Reviewed date:03/07/2025 12:36:14 PM Interpretation: Performing Lab: [...] by the U.S. Food and Drug Administration. Reason For Referral Reason eval and treat Diagnosis 1 Pain in right knee ( M25.561) Diagnosis 2 Other chronic pain ( G89.29) Diagnosis 3 Pain in left knee (M 25.562) Referring Provider First Name FALGUNI Referring Provider Last Name JUAN Referring Provider Speciality Nurse Casandra angel Referred Organization [facility] Referred Provider Ken Nails Referred Address [address] [facility],[address],[place] Referred Provider Specialty Intervention al Pain Medicine General Notes Breanne Iniguez 12:48:09 PM >mailed npp, patient is scheduled Referral Priority Routine Reason PT evaluate and sarah t for LS spondylosis Diagnosis 1 Lumbosacral spondylo sis (M47.817) Referral Organization [facility] Referring Provider First Name Denita Referring Provider Last Name Pavan Tinajero Referring Provider Speciality Pain Medic ine Referred Provider [facility] Referred Provider Specialty Preventive M edicine [...] W/U Status Risk Notes Problem Chronic pain (05671647) Other chronic pain (G89.29) Active confirmed Problem Chronic pain syndrome (969808303) Chronic pain syndrome (G89.4) Active confirmed Problem Fibromyalgia (346471371) Fibromyalgia (M79.7) Active confirmed Problem Lumbosacral spondylosis without myelopathy (91008357) Spondylosis of lumbosacral region without myelopathy or radiculopathy (M47.817) Active confirmed Problem Arthralgia of the pelvic region and thigh (996893155) Left hip pain (M25.552) Active confirmed Problem Arthralgia of the pelvic region and thigh (363503907) Right hip pain (M25.551) Active confirmed Problem Myalgia (62632514) Myalgia (M79.10) Active confirmed Problem Lumbosacral radiculopathy (7092446) Lumbosacral radiculopathy (M54.17) Active confirmed Problem High risk drug monitoring status (638717385) Chronic prescription opiate use (Z79.891) Active confirmed Problem Cognitive impairment (896464125) Cognitive impairment (R41.89) Active confirmed Problem Lumbosacral spondylosis (816785480) Lumbosacral spondylosis (M47.817) Active confirmed Problem Disorder of sacrum (41630823) Disorder of sacrum (M53.3) Active confirmed Vital Signs Weight-kg 77.11 kg 02/28/2025 Weight 170 lbs 02/28/2025 Procedures Procedure Date Ordered Date Performed Result Body Sit e Inj. Trigger Point(s), 1 or 2 muscles, (Piriformis Injection) - 03/21/2025 N/A Inj. SI Joint w/ imaging raj danelan (CT or fluoroscopy) - 06186 04/19/2025 07-30 Conscious Sedation, Professi onal Only - 38050 04/19/2025 N/A Encounters Encounter Location Date Provider Diagnosis [facility] [address] [place] [address] 03/21/2025 Denita Browne-Pric e Myalgia of auxiliary muscles, head and neck M79.12 [facility] [place] [address] [place] [address] [facility] G89.4 ; Fibromyalgia M79.7 ; Spondylosis of lumbosacral region without myelopathy or radiculopathy M47.817 ; Disorder of sacrum M53.3 ; Right hip pain M25.551 ; Left hip pain M25.552 ; Myalgia M79.10 ; Cognitive impairment R41.89 and Analgesic use Z79.899 [facility] [address] [place] [place] [address] 03/14[facility]20[facility] pain syndrome G89.4 Assessments Encounter Date Diagnosis (ICD Code) Assessment Notes Treatment Notes Treatment Clinical Notes Section Notes 02/28/2025 Chronic pain syndrome (ICD-10 - G89.4) [...] UDS confirmation 02/28/2025 Fibromyalgia (ICD-10 - M79.7) 03/14/2025 Chronic pain syndrome (ICD-10 - G89.4) 03/21/2025 Myalgia of auxiliary muscles, head and neck (ICD-10 - M79.12) 02/28/2025 Spondylosis of lumbosacral region without myelopathy [...] 02/28/2025 Analgesic use (ICD-10 - Z79.899) 02/28/2025 Chanell Restrepo, am scribing for Dr. Pelletier. IDr. Pelletier, personally performed the services described in this [...] or 2 muscles, ( Piriformis Injection) - 82732 03/21/2025 Inj. SI Joint w/ imaging guidance (CT or fluoroscopy) - 66858 04/19/2025 Conscious Sedation, Professional Only - 15397 04/19/2025 Next Appt Details Provider Name:Duyen cat, 05/04/2025 09:00:00 AM, [address] [place], [address], Provider Name:Denita [place], 05/31/2025 09:50:00 AM, [address] [place] [address], [phone], Insurance Providers Payer Name Payer Address Payer Phone Subscriber Number Group Number Insured Name Patient Relationship to Insured Coverage Start Date Coverage End Date [place] Medicaid [address] [place] [address] [id number] Sandra Florez Self - patient is the insured Medical (General) History Medical History History ICD Code asthma Stomach Ulcer migraine headaches seizures Depression Arthritis constipation Surgical History Surgery Date(Month/Year) breast augmentation 2007 gall bladder removal 2015 hernia repair gastric bypass 2023
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
[2025-04-19 08:49] VITALS: BP 131/77; PULSE 73; RESP 17; O2SAT 98
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
[2025-04-19 08:50] VITALS: BP 131/77; PULSE 71; O2SAT 98
== END 2025-04-19 09:06 | disposition home or self-care (01) ==
PROVIDERS: Emergency Provider Family Medicine; PCP Family Medicine
DX: Z04.1 Encounter for examination and observation following transport accident (principal); M54.9 Dorsalgia, unspecified
CPT/HCPCS: 72100; 99283

== ENCOUNTER 2025-04-28 09:03 | Outpatient (CLI) | payer MEDICAID, SELFPAY ==
[2025-01-23 15:14] VITALS: BP 131/94; BMI 29.6
== END 2025-04-28 09:04 | disposition home or self-care (01) ==
LOC: LAB 09:05
PROVIDERS: PCP Family Medicine; Visit Provider Psychiatry & Neurology Neurology
DX: Z79.899 Other long term (current) drug therapy (principal)
CPT/HCPCS: 36415; 80164

== ENCOUNTER → 2025-05-09 15:25 | Outpatient (BNVA) | payer MEDICAID, SELFPAY ==
[2025-01-23 15:14] VITALS: BP 131/94; BMI 29.6
== END ==
PROVIDERS: PCP Family Medicine; Visit Provider Nurse Practitioner Family
DX: B86 Scabies (principal)
CPT/HCPCS: 99214

== ENCOUNTER → 2025-05-16 08:02 | Outpatient (BNVA) | payer MEDICAID, SELFPAY ==
[2025-01-23 15:14] VITALS: BP 131/94; BMI 29.6
== END ==
PROVIDERS: PCP Family Medicine; Visit Provider Physician Assistant
DX: M94.261 Chondromalacia, right knee (principal); M94.262 Chondromalacia, left knee; S83.241A Other tear of medial meniscus, current injury, right knee, initial encounter; M25.561 Pain in right knee; M25.562 Pain in left knee; X58.XXXA Exposure to other specified factors, initial encounter
CPT/HCPCS: 20610; 99213; J3301; J9999

== ENCOUNTER → 2025-05-17 08:56 | Outpatient (BNVA) | payer MEDICAID, SELFPAY ==
[2025-01-23 15:14] VITALS: BP 131/94; BMI 29.6
== END ==
PROVIDERS: PCP Family Medicine; Referring Provider Psychiatry & Neurology Neurology; Visit Provider Internal Medicine Cardiovascular Disease
DX: R00.1 Bradycardia, unspecified (principal); R07.9 Chest pain, unspecified
CPT/HCPCS: 93005; 99203

== ENCOUNTER → 2025-05-25 07:59 | Outpatient (BNVA) | payer MEDICAID, SELFPAY ==
[2025-01-23 15:14] VITALS: BP 131/94; BMI 29.6
== END ==
PROVIDERS: PCP Family Medicine; Visit Provider Student in an Organized Health Care Education/Training Program
DX: Z12.11 Encounter for screening for malignant neoplasm of colon (principal)
CPT/HCPCS: 99024

== ENCOUNTER → 2025-05-30 13:30 | Outpatient (BNVA) | payer MEDICAID, SELFPAY ==
[2025-01-23 15:14] VITALS: BP 131/94; BMI 29.6
== END ==
PROVIDERS: PCP Family Medicine; Visit Provider Student in an Organized Health Care Education/Training Program
DX: M25.511 Pain in right shoulder (principal); M25.512 Pain in left shoulder; M94.261 Chondromalacia, right knee; M94.262 Chondromalacia, left knee; M75.42 Impingement syndrome of left shoulder; M75.41 Impingement syndrome of right shoulder
CPT/HCPCS: 20610; 73030; 99214; J3301; J9999

== ENCOUNTER 2025-06-20 09:33 | Day surgery (SDC) | payer MEDICAID, SELFPAY ==
[2025-01-23 15:14] VITALS: BP 131/94; BMI 29.6
[2025-06-20 09:57] VITALS: BP 120/79; PULSE 68; RESP 16; TEMP 36.2; O2SAT 98; BMI 32.5
[2025-06-20 10:17] LABS: OR HCG Qualitative Urine Negative (Negative)
--- NOTE | 2025-06-20 10:40 | P.ANESASSM_ITS ---
Pre-Anesthetic Assessment Height/Weight: Height 1.63 m Weight 86.183 kg Temp Pulse Resp BP Pulse Ox O2 Del Method 97.2 F L 68 16 120/79 98 Room Air 06/20/25 09:57 06/20/25 09:57 06/20/25 09:57 06/20/25 09:57 06/20/25 09:57 06/20/25 09:57 Preop Diagnosis: screening Operation Date: 06/20/25 11:30 Proposed Procedures p Colonoscopy 51524 G0121 Z12.11(Not Applicable) - Aristeo Sellers MD Familial anesthetic complications: none Was Beta Thanh taken within 24 hours: N/A Was Clonidine taken within 24 hours: N/A Last intake: Intake Last Liquid Date 06/19/25 Last Liquid Time 23:55 Last Solid Date 06/18/25 Last Solid Time 22:00 Social Alcohol and Tobacco Exam alert and oriented x 3 Airway Submandibular: within normal limits Cervical ROM: within normal limits Mallampati: Class II Dentition: full History/ROS No significant history except as noted Pulmonary Asthma CV/HEM None reported None reported Hepatic None reported GI gastric bypass oct 2023 Metabolic Morbid Obesity [facility] [place] Fibromyalgia Neuropsych Anxiety, Depression and Seizure (stress/pain/anxiety induced) Anesthetic Plan ASA status: 3 Anesthesia: Anesthesia Evaluation and MAC Risk of > 500 ml blood loss (7ml/kg in children): No Medications/Allergies Home Medications ?Medication ?Instructions ?Recorded ?Confirmed ?Last Taken ?Type fluticasone propionate 50 2 spray intranasal BID 09/2006/15/25 06/19/25 History mcg/actuation nasal spray,suspension (Allergy Relief (fluticasone)) cetirizine 10 mg tablet (Zyrtec) 10 mg PO DAILY #30 ta bs 11/30/19 06/15/25 06/20/25 07:00 Rx fluticasone propionate 220 2 puff inhalation BID #12 g eileen 12/26/19 06/15/25 06/19/25 Rx mcg/actuation HFA aerosol inhaler (Flovent HFA) calcium 250 mg-D3 500 unit-vit K 1 tab PO BID 04/04/24 06/15/25 06/19/25 History 25 ntl-vfdaicpif-nhdnrz-borate tablet acetaminophen 300 mg-codeine 60 mg 1 tab PO DAILY PRN Pain 12/06/24 06/15/25 06/20/25 07:00 History tablet cyclobenzaprine 5 mg tablet 5 mg PO DAILY PRN Spasms 0 12/06/24 06/15/25 06/19/25 History left and right hinged knee brace #1 ea 02/14/2506/19/25 Rx divalproex 250 mg tablet,extended 1,000 mg (4 x 250 mg ) PO .QPM 90 04/10/25 06/15/25 06/19/25 Rx release 24 hr (Depakote ER) days #90 tabs ferrous sulfate 325 mg (65 mg 325 mg PO DAILY 04/16/25 06/15/25 06/19/25 History iron) tablet gabapentin 300 mg capsule 300 mg PO BID 04/16/2506/1506/20/25 07:00 History ketoconazole 2 % shampoo 1 applic topical Q14D PRN Sk in 04/16/25 06/15/25 06/19/25 History Irritation naloxone 4 mg/actuation nasal See Rx Instructions .Rou te .COMPLEX 04/16/25 06/15/25 Unknown History spray (Narcan) vitamin A 3,000 mcg (10,000 unit) 3,000 mcg PO DAILY 0 04/16/25 06/15/25 06/19/25 History capsule tizanidine 4 mg tablet 4 mg PO Q6H PRN muscle spast icity 04/19/25 06/15/25 06/19/25 Rx #20 tabs albuterol sulfate 90 mcg/actuation 2 puff inhalation Q 6H PRN 05/10/25 06/15/25 06/19/25 Rx aerosol inhaler (Ventolin HFA) shortness of breath or wheezing #8.5 grams hpvsukje-wdankpmu-yras 45 mg-folic 1 cap PO DAILY 04/2206/15/25 06/19/25 History acid 800 mcg-vit K 120 mcg capsule (Bariatric Multivitamins) triamcinolone acetonide 0.5 % 1 applic topical BID 7 d ays #15 05/10/25 06/15/25 06/19/25 Rx topical cream grams buspirone 10 mg tablet 10 mg PO BID #60 tabs 06/15/25 06/20/25 07:00 Rx hydroxyzine HCl 50 mg tablet 50 mg PO BID PRN anxiety #60 tabs 05/23/25 06/15/25 06/19/25 Rx Allergies Allergy/AdvReac Type Severity Reaction Status Date / Time aspartame Allergy Severe Headache Verified 05/30/25 13:47 egg Allergy Mild Unknown Verified 05/30/25 13:47 aspirin Allergy ADR/ALGY-Hy Verified 05/30/25 13:47 potension [place] Allergy runny nose Verified 05/30/25 13:47 imipramine Allergy Rash Verified 05/30/25 13:47 milk Allergy bloating Verified 05/30/25 13:47 NSAIDS (Non-Steroidal Allergy Unknown Verified 05/30/25 13:47 Anti-Inflamma Sunblock Allergy Unknown Uncoded 05/30/25 13:47 Current Medications Generic Name Dose Route Start Last Admin Trade Name Freq PRN Reason Stop Dose Admin Sodium Chloride 1,000 mls @ 15 mls/hr 06/20/25 09:41 06/20/25 10:09 Sodium Chloride 0.9% IV 06/21/25 09:40 15 mls/hr .Q24H PRN Administration COLONOSCOPY FLUIDS PFSH Anesthesia Medical History (Updated 06/03/25 @ 23:29 by Jacinto Salinas DO) MDD (major depressive disorder), recurrent, in partial remission FH: thyroid disease FH: colon cancer in relative <50 years old Grandfather at age 40 colon cancer , 01/2023 EGD small Hiatal hernia and polyp's removed, no colonoscopy yet Weight loss, intentional 11/21/2022 274 lbs, 10/07/2023 251 lbs History of prediabetes last A1c 5.4 in 2022 BMI 40.0-44.9, adult Major depressive disorder, recurrent, moderate Psychiatric care Ventral hernia Blood type O- Obesity Generalized anxiety disorder Post-traumatic stress disorder, chronic Migraine without aura Asthma Fibromyalgia Surgical History History of hernia repair (~08/2020) History of cholecystectomy 2016 History of bilateral breast reduction surgery (2007) 2007 breast reduction History of abdominoplasty (2012) 2013 Pannus removal, karen peña @ [facility] Family History Mother Hypertension Diabetes Graves disease Grandmother Stroke Maternal Diabetes Paternal Father Hypercholesterolemia Grandfather Cancer Maternal Grandfather: Mesothelioma Grandfather Colon cancer Paternal---dx age unknown Denies family history of Ovarian cancer Heart disease Breast cancer Uterine cancer Social History Smoking and tobacco/nicotine status: never used tobacco/nicotine Alcohol intake: former Year of sobriety/quit date alcohol: 2010 Substance/Drug Use: never Additional social history: Well-balanced diet No substance abuse. 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
--- NOTE | 2025-06-20 10:58 | W.PM.OPSUD ---
Surgery/Procedure H&P Update DATE OF PROCEDURE: June 20, 2025 DATE H&P PERFORMED: 05/25/25 H&P UPDATE INFORMATION: I have reviewed H&P completed within last 30 days, I have examined patient prior to procedure, No changes to prior documentation and Risks and benefits of the procedure reviewed PREOP DIAGNOSIS: screening PLANNED PROCEDURE: Operation Date: 06/20/25 11:30 Proposed Procedures p Colonoscopy [id number] G0121 Z12.11(Not Applicable) - Aristeo Sellers MD
[2025-06-20 11:14] VITALS: BP 110/65; PULSE 72; RESP 18; TEMP 36.6; O2SAT 98
[2025-06-20 11:31] VITALS: BP 116/81; PULSE 70; RESP 18; O2SAT 100
--- NOTE | 2025-06-20 11:45 | ANE.PACU2 ---
Inpatient post-anesthesia follow up: Airway intact: Yes Vital signs: Temperature 97.8 F Pulse Rate 70 Respiratory Rate 18 Blood Pressure 116/81 Pulse Oximetry 100 Oxygen Delivery Me thod Room Air Oxygen Flow Rate Fraction of Inspir ed Oxygen Hydration adequate: Yes Nausea and vomiting: No Pain level: 1 Mental status: Baseline
== END 2025-06-20 11:45 | disposition home or self-care (01) ==
PROVIDERS: Student in an Organized Health Care Education/Training Program; PCP Family Medicine; Visit Provider Student in an Organized Health Care Education/Training Program
PROC: 0DJD8ZZ Inspection of Lower Intestinal Tract, Via Natural or Artificial Opening Endoscopic (ICD-10-PCS; CPT 45378; principal; 2025-06-20 11:30)
DX: Z12.11 Encounter for screening for malignant neoplasm of colon (principal); Z80.0 Family history of malignant neoplasm of digestive organs; F32.9 Major depressive disorder, single episode, unspecified; E66.01 Morbid (severe) obesity due to excess calories; Z68.32 Body mass index [BMI] 32.0-32.9, adult; F41.9 Anxiety disorder, unspecified; J45.909 Unspecified asthma, uncomplicated; M79.7 Fibromyalgia
CPT/HCPCS: 45378; 81025; J2250; J2704; J7030

== ENCOUNTER → 2025-06-29 10:10 | Outpatient (BNVA) | payer MEDICAID, SELFPAY ==
[2025-01-23 15:14] VITALS: BP 131/94; BMI 29.6
== END ==
PROVIDERS: PCP Family Medicine; Referring Provider Nurse Practitioner Family; Visit Provider Specialist
DX: M25.522 Pain in left elbow (principal); M25.532 Pain in left wrist; R20.0 Anesthesia of skin; R20.2 Paresthesia of skin; R29.898 Other symptoms and signs involving the musculoskeletal system
CPT/HCPCS: 95911

== ENCOUNTER 2025-07-04 07:26 | Outpatient (CLI) | payer MEDICAID, SELFPAY ==
[2025-01-23 15:14] VITALS: BP 131/94; BMI 29.6
--- NOTE | 2025-07-04 07:31 | MR_ITS ---
WS: [id number] MRI LUMBAR SPINE NONCONTRAST TECHNIQUE: Sagittal T1, T2 and STIR imaging. Axial T1 and T2 imaging. CLINICAL INFORMATION: ACUTE MIDLINE LOW BACK PAIN W/O SCIATICA COMPARISON: None. FINDINGS: Mild lumbar curve. No acute compression. Disc bulging worse at L4-5. L1-L2: Normal. L2-L3: Normal. L3-L4: Mild annular bulging. Narrowing of the subarticular recess bilaterally. Mild LEFT foraminal narrowing. Mild facet arthropathy. L4-L5: Broad-based central protrusion with mild central canal stenosis. Impingement of the traversing L5 nerve roots bilaterally. Mild RIGHT foraminal narrowing. Mild facet arthropathy. L5-S1: Minimal disc osteophyte ridging. Mild facet arthropathy. Spinal canal and foramen are patent. Visualized pelvic bony structures: Normal. Paravertebral soft tissues: Normal. Retroverted uterus MR/MR lumbar spine wo con* [id number] IMPRESSION: 1. Disc bulging worse at L4-5 with a broad-based central protrusion and mild c entral canal stenosis. Impingement on the subarticular recess bilaterally and t raversing L5 nerve roots. Mild RIGHT foraminal narrowing. 2. Mild annular bulging L3-4 with slight narrowing of the subarticular recess bilaterally. Mild LEFT L3-4 foraminal narrowing. 3. Mild facet arthropathy L3-L4 and L4-L5.
== END 2025-07-04 07:27 | disposition home or self-care (01) ==
LOC: RAD 07:26
PROVIDERS: PCP Family Medicine; Visit Provider Nurse Practitioner Family
DX: M25.522 Pain in left elbow (principal); M51.360 Other intervertebral disc degeneration, lumbar region with discogenic back pain only; M48.061 Spinal stenosis, lumbar region without neurogenic claudication; Z01.89 Encounter for other specified special examinations; G56.02 Carpal tunnel syndrome, left upper limb; M25.78 Osteophyte, vertebrae; M47.897 Other spondylosis, lumbosacral region; M77.12 Lateral epicondylitis, left elbow
CPT/HCPCS: 20526; 20600; 20605; 72148; 73080; 73110; 99214; J3301; J3490; J9999

== ENCOUNTER 2025-07-24 17:03 | Emergency (ER) | payer MEDICAID, SELFPAY ==
[2025-01-23 15:14] VITALS: BP 131/94; BMI 29.6
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
--- NOTE | 2025-07-24 17:06 | XRR_ITS ---
PROCEDURE INFORMATION: Exam: XR Right Foot Exam date and time: 07/24/2025 6:39 PM Age: 39 years old Clinical indication: Injury or trauma; Other: Dropped can on foot; Crushing; Right TECHNIQUE: Imaging protocol: Radiologic exam of the right foot. Views: 3 or more views. COMPARISON: MR knee RT wo con* [id number] 01/18/2025 8:23 AM FINDINGS: Bones/joints: Heel spurs. Soft tissues: Normal. XR/XR foot RT min 3V* [id number] IMPRESSION: No definite acute fracture, subluxation, dislocation.
--- OUTSIDE RECORDS SUMMARY | 2025-07-24 17:07 | XMS_ITS | Encounter Summary ---
Author Organization [facility] Address [address] [place] [address] Care Team Providers Care Chuck Boner Name Role Phone Kentrell Ann MD Primary Care Provider [phone] Reason for Visit * Reason Comments Med Refill Encounter Details Date Type Department Care Team (Late st Contact Info) Description 07/18/2025 Refill [facility] Family Medicine [address] [phone] Kentrell Ann MD [facility] [address] [address] Environmental allergies Social History Tobacco Use Types Packs/Day Years [...] often do you attend chur ch or muslim services? 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 Yes 2024 Housing Stability Answer [...] can t afford new medications? Yes 10/06/2024 Feeling Safe Answer Date Recorded Are you in a relationship wi th someone who hurts you emotionally and/or physically? 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
--- OUTSIDE RECORDS SUMMARY | 2025-07-24 17:07 | XMS_ITS | Clinical Summary ---
Author Organization [facility] Address [address] [facility] Attn: Epic Prelude ADT JASON THORPE [address] Care Team Providers Care Theatre Instructor Name Role Phone Kentrell Ann MD Primary Care Provider [phone] Allergies Active Allergy Reactions Criticality Noted Date Comments Aspartame Headache Low 02/22/2025 Aspirin Hypotension Medium 06/08/2025 Cedarwood Unknown 03/14/2025 Cedarwood Oil Other (See [...] as needed for Shortness of Breath. Active fluticasone propionate (FLONASE) 50 mcg/spray [place], Suspension nasal inhalerIndicati ons:Environment al allergies Administer 2 Sprays in each nostril 2 times daily. 16 Gram 11 07/15/20 24 Active vitamin A 10,000 unit capsuleIndicati ons:Vitamin A deficiency Take 1 Capsule (10,000 Units) by mouth daily. 100 Capsule 3 07/15/20 24 Active ketoconazole (NIZORAL) 2 % Shampoo WASH TO SCALP TWO TO THREE times PER week; set FIVE minutes before rinsing 09/05/20 24 Active ketoconazole (NIZORAL) 2 % Cream apply TO entire FEET topically TWICE DAILY FOR THREE weeks during flares; including between TOES 09/05/20 24 Active cyclobenzaprine (FLEXERIL) 5 mg Tablet Take 1 Tablet (5 mg) by mouth 1 time daily as needed for Spasm or Pain. 100 Tablet 01/10/20 25 Active acetaminophen-c odeine (TYLENOL #4) 300-60 mg tablet 1 tab orally Q24 prn pain (hold within 4H of planned sleep) for 28 days 01/06/20 25 Active naloxone (Narcan) 4 mg/spray [place], Non-Aerosol as directed intranasally once 05/01/20 22 Active vitamin B complex Capsule as directed Ac tive acetaminophen (TylenoL) 325 mg tablet 1-2 tabs orally every 4 hours, as needed Active hydrOXYzine HCL (ATARAX) 50 mg tablet 1 tab(s) orally 4 times a day 01/06/20 25 Active gabapentin (NEURONTIN) 100 mg capsule 02/29/20 25 Active divalproex (DEPAKOTE ER) 250 mg Extended Release 24 hour tablet TAKE 4 TABLETS BY MOUTH EVERY EVENING 04/22/20 25 Active GaviLyte-G 236-22.74-6.74 -5.86 gram Recon Soln drink 240ml every 10 minutes 04/24/20 25 Active cetirizine (ZyrTEC) 10 mg tablet Take 1 Tablet by mouth daily. 03/13/20 25 Active gabapentin (NEURONTIN) 300 mg capsule Take 1 Capsule by mouth 2 times daily. 03/28/20 25 Active wwdhqyca-iaw-gu nw-bprucrqu-C6 (Bariatric Multivitamins) 45 mg iron-800 mcg DFE-120 mcg Capsule Take by mouth. Activ e fluticasone propionate (FLOVENT HFA) 220 mcg/actuation HFA Aerosol InhalerIndicati ons:Mild intermittent asthma, unspecified whether complicated INHALE TWO PUFFS EVERY TWELVE HOURS 12 Gram 2 05/15/20 25 Active Vitamin Plus Low Iron 27 mg iron- 1 mg Tablet Take 1 Tablet by mouth daily. 12/09/19 25 Active permethrin (ELIMITE) 5 % Cream APPLY FROM NECK DOWN TO FEET OVERNIGHT FOR EIGHT HOURS. WASH OFF IN THE MORNING. REPEAT IN ONE WEEK 05/09/20 25 Active ondansetron (ZOFRAN ODT) 8 mg Tablet, Rapid Dissolve 1 tablet on the tongue and allow to dissolve as needed Orally Once a day Active busPIRone (BUSPAR) 10 mg tablet take 1/2 tablet BY MOUTH EVERY MORNING and EVERY EVENING FOR FOUR DAYS THEN increase TO ONE TWICE DAILY 05/23/20 25 Active Vitamin A & Ergocalciferol, D2, 1,250-135 unit Capsule Vitamin A Active trvc-LX-qkc-epa -CVL-AHGZ-mm-mv 1.5 mg iron- 8.73 mg capsule,IR & delay rel,biphase Iron Active adqmyqhc-poj-tm jy-ebflctnn-Q7 (Bariatric Multivitamins) 45 mg iron-800 mcg DFE-120 mcg Capsule as directed Orally Active tiZANidine (ZANAFLEX) 4 mg TabletIndicatio ns:Acute midline low back pain without sciatica Take 1 Tablet (4 mg) by mouth daily at bedtime. 30 Tablet 2 06/08/20 25 Active cetirizine (ZyrTEC) 10 mg tabletIndicatio ns:Environmenta l allergies TAKE 1 TABLET BY MOUTH EVERY DAY 100 Tablet 1 07/18/20 25 Active Cetirizine 10 mg CapsuleIndicati ons:Environment al allergies Take 10 mg by mouth daily. 100 Capsule 3 07/15/20 24 2024 Discontinued Active Problems Problem Noted Date [...] Encounters Date Type Department Care Team Description 07/19/2025 External Device Data [facility] ABSTRACTION Provider, Abstract 07/19/2025 External Device Data [facility] ABSTRACTION Provider, Abstract 07/18/[address] [address] Kentrell Ann MD Environmental allergies 07/05/2025 Results Follow-Up [facility] [address] [phone] Satnam, Crystal Fanny, PAYLOADER MACHINE OPERATOR MRI LUMBAR WO CONTRAST 07/05/2025 Orders Only [facility] [address] [phone] Satnam, Crystal Fanny, PAYLOADER MACHINE OPERATOR Acute midline low back pain without sciatica 06/28/2025 Orders Only [facility] HIM [address] [place] [phone] Provider, Abstract 06/27/2025 Orders Only [facility] [place] [address] [place] [phone] Aristeo Mahmood MD Special screening for malignant neoplasms, colon (Primary Dx) 06/20/2025 External Device Data STL ABSTRACTION Provider, Abstract 06/20/2025 External Device Data [facility] ABSTRACTION Provider, Abstract 06/13/2025 10:40 AM CDT Video Visit [address] [phone] Satnam, Crystal Fanny, PAYLOADER MACHINE OPERATOR Acute midline low back pain without sciatica (Primary Dx) 06/08/2025 8:20 AM CDT Office Visit [address] [phone] Satnam, Crystal Fanny, PAYLOADER MACHINE OPERATOR Acute midline low back pain without sciatica (Primary Dx) 06/06/2025 External Device Data STL ABSTRACTION Provider, Abstract 05/17/2025 External Device Data STL ABSTRACTION Provider, Abstract 05/16/2025 External Device Data ST[facility] ABSTRACTION Provider, Abstract 05/16/2025 External Device Data [facility] ABSTRACTION Provider, Abstract 05/13/[address] [phone] Rashmi Wu, PAYLOADER MACHINE OPERATOR Mild intermittent asthma, unspecified whether complicated 05/10/2025 External Device Data STL ABSTRACTION Provider, Abstract 05/01/2025 11:20 AM CDT - 05/01/2025 11:59 PM CDT Hospital Encounter [facility] [address] [place] [address] Elisa Hay, PAYLOADER MACHINE OPERATOR Discharge Disposition: Home or Self Care 05/01/2025 11:00 AM CDT Office Visit [facility] [address] [place] [phone] SatnamElisa hirsch, PAYLOADER MACHINE OPERATOR Acute midline low back pain without sciatica (Primary Dx); Family history of colon cancer requiring screening colonoscopy; Chronic pain of both shoulders; Left elbow pain; Left wrist pain; Seizure-like activity ([facility]/HCC) 05/01/2025 Results Follow-Up [facility] [address] [address] Elisa Hay, PAYLOADER MACHINE OPERATOR XR LUMBAR SPINE 4+ VW 04/28/2025 Telephone [facility] [address] [place] [address] Kentrell Ann MD Requesting Sooner Appointment 04/26/2025 External Device Data STL ABSTRACTION Provider, Abstract 04/25/2025 External Device Data STL ABSTRACTION Provider, Abstract [...] the great vessels; lived 6h. born in [place], [place]. High Cholesterol Sister 1 Unknown Sister [...] often do you attend chur ch or mosque services? 1 to 4 times per year 10/06/2024 Do you belong to any clubs o r organizations such as sikhism groups, unions, fraternal or athletic groups, or [...] worry about transportation for future doctor visits, pickling tank operator medication, etc.? Yes 2024 Housing Stability [...] on file Legal Sex Female 4:38 AM DATA MANAGEMENT CONSULTANT Gender Identity Not on file Sexual Orientation Not on file Last Filed Vital Signs Vital Sign Reading Time Taken Comments Blood Pressure 118/72 06/08/2025 8:06 AM CDT Pulse 100 06/08/2025 8:06 AM CDT Temperature 36.6 C (97.8 F) 06/08/2025 8:06 AM CDT Respiratory Rate 16 06/08/2025 8:06 AM CDT Oxygen Saturation 100% 06/08/2025 8:06 AM CDT Inhaled Oxygen Concentration - - Weight 86.2 kg (190 lb) 06/13/2025 10:13 AM CDT Height 162.6 cm (5' 4 ) 06/13/2025 10:13 AM CDT Body Mass Index 32.61 06/13/2025 10:13 AM CDT Plan of Treatment Health Maintenance Due Date Last Done Comments HEPATITIS B VACCINES (1 of 3 - 19+ 3-dose series) 11/21/2002 HPV VACCINES (1 - 3-dose SCD M series) 11/21/2010 PAP SMEAR 10/21/2020 10/21/2017, 10/21/2017 DTAP/TDAP/TD VACCINES (2 - T d or Tdap) 11/25/2021 11/26/2011 CERVICAL CANCER SCREENING 10/21/2022 HPV/Cotest (21-29) 10/21/2022 10/21/2017 HPV/Cotest (30-65) 10/21/2022 10/21/2017 BREAST CANCER SCREENING 2023 INFLUENZA VACCINE (#1) 2025 8, 07/02/2011, 08/14/2009 Preventative Visit-Managed Medicaid 11/11/2025 11/10/2024 Pre-Diabetes and Diabetes Screening 03/14/2028 03/14/2025, 06/14/2024, 07/01/2018, Additional history exists Procedures Procedure Name Priority Date/Time Associated Diagnosis Comments MRI LUMBAR WO CONTRAST Routine 07/04/2025 Acute midline low back pain without sciatica ENDOSCOPY, COLON, SCREENING Routine 06/20/2025 3:08 PM CDT XR LUMBAR SPINE 4+ VW Routine 05/01/2025 11:50 AM CDT Acute midline low back pain without sciatica HEMOGLOBIN A1C Routine 03/14/2025 1:21 PM CDT Hypoglycemia CERV/VAG CYTO SCREEN PAP RLFX HPV Routine 10/21/2017 11:52 AM DATA MANAGEMENT CONSULTANT from Last 3 Months or Most Recently Relevant to Health Maintenance Results * MRI LUMBAR WO CONTRAST (07/04/2025) Anatomical Region Laterality Modality Spine Magnetic Resonan ce Elisa Hay PAYLOADER MACHINE OPERATOR MR ORDERABLES Final Re sult * ENDOSCOPY, COLON, SCREENING (06/20/2025 3:08 PM CDT) us Abstract Provider GI PROCEDURE ORDERABLES Final Result * XR LUMBAR SPINE 4+ VW (05/01/2025 11:50 AM CDT) Anatomical Region Laterality Modality Spine Computed Radiogr aphy 05/01/2025 11:5 0 AM CDT Impressions 05/01/2025 12:51 PM CDT IMPRESSION: Please see below. Exam: XR LUMBAR SPINE 4+ VW Date/Time of Exam: 05/01/2025 11:50 AM Reason For Exam: See Diagnosis. Diagnosis: Acute midline low back pain without sciatica. Comparison: July 23, 2017. FINDINGS: Frontal, lateral neutral and flexion extension and lumbosacral projections are obtained upright. Mild right convex curvature. Alignment in sagittal plane normal. Disc spaces preserved. No fracture, listhesis or spondylolysis. No stress-induced malalignment with flexion or extension. Narrative Procedure Note Efrain Samson DO - 05/01/2025 IMPRESSION: Please see below. Exam: XR LUMBAR SPINE 4+ VW Date/Time of Exam: 05/01/2025 11:50 AM Reason For Exam: See Diagnosis. Diagnosis: Acute midline low back pain without sciatica. Comparison: July 23, 2017. FINDINGS: Frontal, lateral neutral and flexion extension and lumbosacral projections are obtained upright. Mild right convex curvature. Alignment in sagittal plane normal. Disc spaces preserved. No fracture, listhesis or spondylolysis. No stress-induced malalignment with flexion or extension. Elisa Richterpps [facility] DIAGNOSTIC IMAGING ORDER KURT Final Result * HEMOGLOBIN A1C (03/14/2025 1:21 PM CDT) Pathologist [facility] HEMOGLOBIN A1C 5.2 <5.7 % [facility] Comment: For the purpose of screening for the presence of diabetes: <5.7% Consistent with the absence of diabetes 5.7-6.4% Consistent with increased risk for diabetes (prediabetes) > or =6.5% Consistent with diabetes This assay result is consistent with a decreased risk of diabetes. Currently, no consensus exists regarding use of hemoglobin A1c for diagnosis of diabetes in children. According to [place] Diabetes Association (ADA) guidelines, hemoglobin A1c <7.0% represents optimal control in non- diabetic patients. Different metrics may apply to specific patient populations. Standards of Medical Care in Diabetes(ADA). ESTIMATED AVERAGE GLUCOSE (MG/DL) 103 mg/dL [facility] ESTIMATED AVERAGE GLUCOSE (MMOL/L) 5.7 mmol/L [facility] Comment: Test Performed at: [facility] [address] [address] Lino Rosas MD Blood 03/14/2025 1:21 PM CDT 03/15/2025 2:51 AM CDT Rashmi Wu [facility] CHEMISTRY ORDERABLES Fin al Result [facility] [phone] [facility] [address] [place] [address] * CERV/VAG CYTO SCREEN PAP RLFX HPV (10/21/2017 11:52 AM DATA MANAGEMENT CONSULTANT) Pathologist [facility] CLINICAL INFORMATION SEE COMMENT 10/26/2017 4:36 PM DATA MANAGEMENT CONSULTANT [facility] Comment:Information not prov ided LAST MENSTRUAL PERIOD SEE COMMENT 10/26/2017 4:36 PM DATA MANAGEMENT CONSULTANT [facility] Comment:INFORMATION NOT PROV IDED PREV PAP: SEE COMMENT 10/26/2017 4:36 PM DATA MANAGEMENT CONSULTANT [facility] Comment:INFORMATION NOT PROV IDED PREV BX: SEE COMMENT 10/26/2017 4:36 PM DATA MANAGEMENT CONSULTANT [facility] Comment:INFORMATION NOT PROV IDED SOURCE Endocervix 10/26/2017 4:36 PM DATA MANAGEMENT CONSULTANT [facility] ADEQUACY: SEE COMMENT 10/26/2017 4:36 PM DATA MANAGEMENT CONSULTANT [facility] Comment: Satisfactory for evaluation. Endocervical/transformation zone component present. Age and/or menstrual status not provided PAP INTERP SEE COMMENT 10/26/2017 4:36 PM DATA MANAGEMENT CONSULTANT [facility] Comment:Negative for intraep ithelial lesion or malignancy. COMMENT SEE COMMENT 10/26/2017 4:36 PM DATA MANAGEMENT CONSULTANT [facility] Comment: This Pap test has been evaluated with computer assisted technology. BULK TANK CAR UNLOADER: SEE COMMENT 2017 4:36 PM DATA MANAGEMENT CONSULTANT [facility] Comment: BES, CT(ASCP) CT screening location: [place] [address] Administration JASON Jain [address] Genital SWAB OF ENDOCERVIX / Unknown Collection / Unknown 10/21/2017 11:52 AM DATA MANAGEMENT CONSULTANT 10/23/2017 8:49 AM DATA MANAGEMENT CONSULTANT Narrative [facility] - 10/26/2017 4:36 PM DATA MANAGEMENT CONSULTANT Performing Organization Information: Site ID: SL Name: [facility] Address: [facility] Administration JASON Welsh [address] Director: Lino Rosas MD Toshia Rajan MD PATHOLOGY/CYTOLOGY ORDERAB LES Final Result [facility] from Last 3 Months or Most Recently Relevant to Health Maintenance Insurance MEDICAID [place] Care Teams Theatre Instructor Relationship Specialty Start Date End Date Kentrell Ann MD [address] [address] PCP - General Family Practice 11/30/23
--- OUTSIDE RECORDS SUMMARY | 2025-07-24 17:07 | XMS_ITS | Encounter Summary ---
Author Organization [facility] Address [address] [place] [address] Care Team Providers Care Farm Or Ranch Animal Caretaker Name Role Phone Tamiko Christensen MD Primary Care Provid er Reason for Referral * Outpatient Services (Routine) - Closed Specialty Diagnoses / Procedures Referred By Kale richardson Referred To Contact Perinatology Diagnoses At risk for gestational diabetes mellitus History of delivery, currently in second trimester Procedures OB TRANSVAGINAL Toshia Rajan MD Phone: tel: fax: [facility] Medicine[address] [place] [address] Phone: tel: fax: Referral ID Status Reason Start Date Expiration Date Visits Requested Visits Authorized [id number] Closed Ordering Department To Schedule 01/18/2018 02/18/2019 1 1 Encounter Details Date Type Department Care Team (Late st Contact Info) Description 01/18/2018 Ancillary Orders [facility] OBGYN-[address] [place] [address] Toshia Rajan MD [address] [facility] [place] [address] At risk for gestational diabetes [...] on file Legal Sex Female 11:09 AM CUFF TURNER Gender Identity Not on file Sexual Orientation [...] trimester documented in this encounter Care Teams Farm Or Ranch Animal Caretaker Relationship Specialty Start Date End Date Tamiko Christensen [place] [address] PCP - General Family Practice 05/14/17 documented as of this encounter
--- OUTSIDE RECORDS SUMMARY | 2025-07-24 17:07 | XMS_ITS | Encounter Summary ---
Author Organization [facility] Address [address] [place] [address] Care Team Providers Care Employment Consultant Name Role Phone Tamiko Christnesen MD Primary Care Provid er Reason for Referral * Outpatient Services (Routine) - Closed Specialty Diagnoses / Procedures Referred By Kale richardson Referred To Contact Perinatology Diagnoses At risk for gestational diabetes mellitus Family history of transposition of great vessels Procedures ECHO 2D + COLOR FLOW VELOCITY Toshia Rajan MD Phone: tel: fax: [facility] [address] Phone: tel: fax: Referral ID Status Reason Start Date Expiration Date Visits Requested Visits Authorized [id number] Closed Ordering Department To Schedule 01/14/2018 02/14/2019 1 1 * Outpatient Services (Routine) - Closed Specialty Diagnoses / Procedures Referred By Kale richardson Referred To Contact Perinatology Diagnoses At risk for gestational diabetes mellitus Procedures US OB FOLLOW UP PER FETUS Toshia Rajan MD Phone: tel: fax: [facility] [place] [address] Phone: tel: fax: Referral ID Status Reason Start Date Expiration Date Visits Requested Visits Authorized [id number] Closed Ordering Department To Schedule 01/14/2018 02/14/2019 1 1 * Outpatient Services (Routine) - Closed Specialty Diagnoses / Procedures Referred By Kale t Referred To Contact Perinatology Diagnoses At risk for gestational diabetes mellitus Procedures US OB FOLLOW UP PER FETUS Toshia Rajan MD Phone: tel: fax: [facility] [place] [address] Phone: tel: fax: Referral ID Status Reason Start Date Expiration Date Visits Requested Visits Authorized [id number] Closed Ordering Department To Schedule 01/14/2018 02/14/2019 1 1 Encounter Details Date Type Department Care Team (Late st Contact Info) Description 01/14/2018 Ancillary Orders [facility] OBGYN[address] [place] [address] Toshia Rajan MD [address] [facility], [facility] [address] [place] [address] At risk for gestational diabetes [...] on file Legal Sex Female 11:09 AM 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 Name: SANDRA PRESCOTT Study Date: 04/12/2018 10:35am Pat. NO: [id number] Referring MD: TOSHIA RAJAN Site: [facility] Chart Calculator: Marlys Jones : 1985 Age: 32 INDICATION Maternal Hypertension, Chronic CODING Procedures 44703: OB US Follow-up HISTORY OB History 3. [...] 4 lb 9 oz EFW by Hadlock ([id number]) Head / Face / Neck Biometry: Cephalic index 0.79 44% Jeramie Portuguese Tutor 6.1 mm Extremities / Bony Struc Biometry: [...] Note Jakob Galeana II, MD - 04/12/2018 [place] Follow Up Pat. Name:Stephan PRESCOTT Date:04/12/2018 10:35am Pat. NO: [id number] MD:TOSHIA RAJAN Site:[place] MFMSonographer:Marlys Jones :1985Age:32 INDICATION Maternal Hypertension, Chronic CODING Procedures 50378: OB US Follow-up HISTORY OB History 3. [...] 4 lb 9 oz EFW by Hadlock ([id number]) Head / Face / Neck Biometry: Cephalic index 0.7944% Nicolaides Portuguese Tutor 6.1 mm Extremities / Bony Struc Biometry: [...] gestational age Narrative 03/15/2018 4:30 PM T [place] Follow Up Pat. Name: SANDRA PRESCOTT Study Date: 03/15/2018 8:23am Pat. NO: [id number] Referring MD: TOSHIA RAJAN Site: [facility] Chart Calculator: Karina Seymour : 1985 Age: 32 INDICATION Other Condition Dx: At risk for gestational diabetes mellitus [Z91.89 (ICD-10-CM)] CODING Diagnosis XXX.10: Other condition Z3A.28: Weeks Gestation of Procedures 58111: OB US Follow-up HISTORY OB History 3. [...] 3 lb 2 oz EFW by Hadlock ([id number]) Head / Face / Neck Biometry: Cephalic index 0.75 12% Nicolaides Portuguese Tutor 5.7 mm Extremities / Bony Struc Biometry: [...] Kervin URIBE, Jakob Ornelas MD - 03/15/2018 [place] Follow Up Pat. Name:Stephan PRESCOTT Date:03/15/2018 8:23am Pat. NO: [id number] MD:TOSHIA RAJAN [facility] Seym[facility] :1985Age:32 INDICATION Other Condition Dx: At risk for gestational diabetes mellitus [Z91.89 (ICD-10-CM)] CODING Diagnosis XXX.10: Other condition Z3A.28: Weeks Gestation of Procedures 29660: OB US Follow-up HISTORY OB History 3. [...] 3 lb 2 oz EFW by Hadlock ([id number]) Head / Face / Neck Biometry: Cephalic index 0.7512% Nicolaides Portuguese Tutor 5.7 mm Extremities / Bony Struc Biometry: [...] INTERFACE SYSTEM - 02/17/2018 8:27 AM T [place] Echo Pat. Name: SANDRA PRESCOTT Study Date: 02/16/2018 8:22am Pat. NO: [id number] Referring MD: TOSHIA RAJAN Site: [facility] Chart Calculator: Art Alcaraz : 1985 Age: 32 INDICATION Other Condition At risk for gestational diabetes mellitus [Z91.89 (ICD-10-CM)]; Family history of transposition of great vessels [Z82.79 (ICD-10-CM CODING Procedures 40584: Echo 2D 83706: Echo Spectral Doppler 13712: Doppler Color Flow Mapping HISTORY OB History [...] subcostal LVOT view normal RVOT view normal 0-wjljeu-oodcbtj view normal, 3 vessel and 3 vessel [...] Note Jakob Galeana II, MD - 02/17/2018 [place] Echo Pat. Name:Stephan PRESCOTT Date:02/16/2018 8:22am Pat. NO: [id number] MD:TOSHIA RAJAN Site:[place] MFMSonographer:Art Alcaraz :1985Age:32 INDICATION Other Condition At risk for gestational diabetes mellitus [Z91.89 (ICD-10-CM)]; Family history of transposition of great vessels [Z82.79 (ICD-10-CM CODING Procedures 32116: Echo 2D 09253: Echo Spectral Doppler 26590: Doppler Color Flow Mapping HISTORY OB History [...] subcostal LVOT view normal RVOT view normal 4-rdjhjz-tlnvxtg view normal, 3 vessel and 3 vessel [...] mellitus documented in this encounter Care Teams Employment Consultant Relationship Specialty Start Date End Date Tamiko Christensen MD [address] [place] [address] PCP - General Family Practice 05/14/17 documented as of this encounter
--- OUTSIDE RECORDS SUMMARY | 2025-07-24 17:07 | XMS_ITS | Encounter Summary ---
Author Organization [facility] Address [address] [place] [address] Care Team Providers Care Land Conservation Specialist Name Role Phone Kentrell Ann MD Primary Care Provider [phone] Encounter Details Date Type Department Care Team (Latest Contact Info) Description 10/07/2024 Results Follow-Up [facility] Cinthia Garcia Sheri [address] [place] [address] Efrain Quinn DO [address] [place] [address] ESTRADIOL, HCG QUANTITATIVE, BLOOD, PROGESTERONE [...] often do you attend chur ch or mormon services? 1 to 4 times per year 10/06/2024 Do you belong to any clubs o r organizations such as orthodox groups, unions, fraternal or athletic groups, or [...] worry about transportation for future doctor visits, picker operator medication, etc.? Yes 2024 Housing Stability [...] on file Legal Sex Female 4:38 AM SENIOR WEB ANALYST Gender Identity Not on file Sexual Orientation Not on file documented as of this encounter Miscellaneous Notes * Result Encounter Note - Efrain Quinn DO - 10/07/2024 7:16 AM SENIOR WEB ANALYST Can you send her a [employer] message that her results were normal. Her estrogen is in the normal range. Her HCG and progesterone are very low, which indicates the beginning of a menstrual cycle and nocurrent . OR WEB ANALYST documented in this encounter Plan of Treatment Not on file documented as of this encounter Visit Diagnoses Not on filedocumented in this encounter Care Teams Land Conservation Specialist Relationship Specialty Start Date End Date Kentrell Ann MD [address] [facility] [address] [place] [phone] PCP - General Family Practice 11/30/23 documented as of this encounter
--- OUTSIDE RECORDS SUMMARY | 2025-07-24 17:07 | XMS_ITS | Encounter Summary ---
Author Organization [employer] Address [address] [place] [address] Care Team Providers Care Student Worker Name Role Phone Kentrell Ann MD Primary Care Provider [phone] Encounter Details Date Type Department Care Team (Late st Contact Info) Description 07/19/2025 External Device Data STL ABSTRACTION [...] 10/06/2024 How often do you attend chur or moravian services? 1 to 4 times per year 10/06/2024 Do you belong to any clubs o r organizations such as pentecostalism groups, unions, fraternal or athletic groups, or [...] worry about transportation for future doctor visits, picking machine operator helper medication, etc.? Yes 2024 Housing Stability Answer [...] on file Legal Sex Female 4:38 AM THERAPIST Gender Identity Not on file Sexual Orientation Not on file documented as of this encounter Plan of Treatment Not on file documented as of this encounter Visit Diagnoses Not on filedocumented in this encounter Care Teams Student Worker Relationship Specialty Start Date End Date Kentrell Ann MD [address] [facility] [facility] [address] [place] [address] PCP - General Family Practice 11/30/23 documented as of this encounter
--- OUTSIDE RECORDS SUMMARY | 2025-07-24 17:07 | XMS_ITS | Encounter Summary ---
Author Organization [facility] Address [address] [place] [address] Care Team Providers Care Beet End Supervisor Name Role Phone Tamiko Christensen MD Primary Care Provid er Reason for Referral * Outpatient Services (Routine) - Closed Specialty Diagnoses / Procedures Referred By Kale richardson Referred To Contact Perinatology Diagnoses At risk for gestational diabetes mellitus Family history of transposition of great vessels Procedures US OB FOLLOW UP PER FETUS Bill Rajan MD Phone: tel: fax: [facility] [place] [address] Phone: tel: fax: Referral ID Status Reason Start Date Expiration Date Visits Requested Visits Authorized [id number] Closed Ordering Department To Schedule 02/11/2018 03/14/2019 1 1 Encounter Details Date Type Department Care Team (Late st Contact Info) Description 02/11/2018 Ancillary Orders [facility] OBGYN-[address] [place] [address] Bill Rajan MD [address] [facility] [place] [phone] At risk for gestational diabetes mellitus; Family [...] on file 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 Name: DEANDRE PRESCOTT Study Date: 02/16/2018 8:12am Pat. NO: [id number] Referring MD: BILL RAJAN Site: [facility] Actor Understudy: Art Alcaraz : 1985 Age: 32 INDICATION Other Condition At risk for gestational diabetes mellitus [Z91.89 (ICD-10-CM)]; Family history of transposition of great vessels [Z82.79 (ICD-10-CM)] CODING Procedures 71204: OB US Follow-up HISTORY OB History 3. [...] 1 lb 13 oz EFW by Hadlock ([id number]-[id number]-FL) Head / Face / Neck Biometry: Cephalic index 0.73 6% Nicolaides Black Ash Burner Operator 3.0 mm Extremities / Bony Struc Biometry: [...] Note Jakob Galeana II, MD - 02/17/2018 [place] [facility] Pat. Name:Stephan PRESCOTT Date:02/16/2018 8:12am Pat. NO: [id number] MD:BILL RAJAN [facility]car[facility] :1985Age:32 INDICATION Other Condition At risk for gestational diabetes mellitus [Z91.89 (ICD-10-CM)]; Family history of transposition of great vessels [Z82.79 (ICD-10-CM)] CODING Procedures 99493: OB US Follow-up HISTORY OB History 3. [...] 1 lb 13 oz EFW by Hadlock (KYN-GS-EG-FL) Head / Face / Neck Biometry: Cephalic index 0.73 6% Nicolaides Black Ash Burner Operator 3.0 mm Extremities / Bony Struc Biometry: [...] weight is appropriate for gestational age Bill Rajna MD ORDERABLES Final Resu lt documented in this encounter Visit Diagnoses Diagnosis At risk for gestational diabetes mellitus Family history of transposition of great vessels Family history of congenital anomalies At risk for gestational diabetes mellitus Family history of transposition of great vessels Family history of congenital anomalies documented in this encounter Care Teams Beet End Supervisor Relationship Specialty Start Date End Date Tamiko Christensen MD [address] [place] [phone] PCP - General Family Practice 05/14/17 documented as of this encounter
--- OUTSIDE RECORDS SUMMARY | 2025-07-24 17:07 | XMS_ITS | Encounter Summary ---
Author Organization [employer] Address [address] [place] [address] Care Team Providers Care Coding Quality Coordinator Name Role Phone Kentrell Ann MD Primary Care Provider [phone] Encounter Details Date Type Department Care Team [...] How often do you attend chur or temple services? 1 to 4 times per year 10/06/2024 Do you belong to any clubs o r organizations such as presybeterian groups, unions, fraternal or athletic groups, or [...] about transportation for future doctor visits, picking crew supervisor medication, etc.? 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
--- OUTSIDE RECORDS SUMMARY | 2025-07-24 17:07 | XMS_ITS | Encounter Summary ---
Author Organization [facility] Address [address] [place] [address] Care Team Providers Care Field Artillery Senior Sergeant Name Role Phone Tamiko Christensen MD Primary [...] FETUSES Toshia Rajan MD Phone: tel: fax: [facility]aternal [facility] Medicine[address] [place] [address] Phone: tel: fax: Referral ID Status Reason Start Date Expiration Date Visits Requested Visits Authorized [id number] Closed Ordering Department To Schedule 04/09/2018 05/10/2019 [...] FETUSES Toshia Rajan MD Phone: tel: fax: [facility] Maternal and [address] [address] Phone: tel: fax: Referral ID Status Reason Start Date Expiration Date Visits Requested Visits Authorized [id number] Closed Ordering Department To Schedule 04/09/2018 05/10/2019 [...] Toshia Rajan MD Phone: tel: fax: [facility] and [address] [address] Phone: tel: fax: Referral ID Status Reason Start Date Expiration Date Visits Requested Visits Authorized [id number] Closed Ordering Department To Schedule 04/09/2018 05/10/2019 [...] FETUSES Toshia Rajan MD Phone: tel: fax: [facility] [address] [address] Phone: tel: fax: Referral ID Status Reason Start Date Expiration Date Visits Requested Visits Authorized [id number] Closed Ordering Department To Schedule 04/09/2018 05/10/2019 1 1 * Outpatient Services (Routine) - Closed Specialty Diagnoses / Procedures Referred By Contac t Referred To Contact Perinatology Diagnoses HTN (hypertension), benign Diet controlled gestational diabetes mellitus (GDM) in third trimester Asthma, unspecified asthma severity, unspecified whether complicated, unspecified whether persistent Procedures US OB FOLLOW UP PER FETUS Toshia Rajan MD Phone: tel: fax: [facility] [place] [address] Phone: tel: fax: Referral ID Status Reason Start Date Expiration Date Visits Requested Visits Authorized [id number] Closed Ordering Department To Schedule 04/09/2018 05/10/2019 1 1 Encounter Details Date Type Department Care Team (Late st Contact Info) Description 04/09/2018 Ancillary Orders [facility] OBGYN[address] [place] [address] Toshia Rajan MD [address] [facility] [place] [address] HTN (hypertension), benign; Diet controlled [...] on file 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 Name: SANDRA PRESCOTT Study Date: 05/17/2018 10:50am Pat. NO: [id number] Referring MD: TOSHIA RAJAN Site: [facility] Fire And Safety Helper: Marlys Jones : 1985 Age: 32 INDICATION Other Condition Dx: HTN (hypertension), benign [I10 (ICD-10-CM)]; Diet controlled gestational diabetes mellitus (GDM) in third trimester [O24.410 (ICD-10-CM)]; Asthma, unspecified asthma severity, unspecified whether complicated, unspecified whether persistent [J45.909 (ICD-10-CM)] CODING Diagnosis XXX.10: Other condition Z3A.37: Weeks Gestation of Procedures 67890: Limited OB Ultrasound HISTORY OB History 3. [...] Note Jakob Galeana II, MD - 05/17/2018 [facility] Pat. Name:ABSIL PRESCOTTAna Maria Date:05/17/2018 10:50am Pat. NO: [id number] MD:TOSHIA RAJAN [facility]onographer:Marlys Jones :1985Age:32 INDICATION Other Condition Dx: HTN (hypertension), benign [I10 (ICD-10-CM)]; Diet controlled gestational diabetes mellitus (GDM) in third trimester [O24.410 (ICD-10-CM)]; Asthma, unspecified asthma severity, unspecified whether complicated, unspecified whether persistent [J45.909 (ICD-10-CM)] CODING Diagnosis XXX.10: Other condition Z3A.37: Weeks Gestation of Procedures 69090: Limited OB Ultrasound HISTORY OB History 3. [...] biophysical profile Narrative 05/10/2018 3:07 PM T [facility]. Name: SANDRA PRESCOTT Study Date: 05/10/2018 10:18am Pat. NO: [id number] Referring MD: TOSHIA RAJAN Site: [facility] Fire And Safety Helper: Francy Ross : 1985 Age: 32 INDICATION Maternal Hypertension, Chronic Diabetes - Gestational (unspecified) Maternal Asthma CODING Diagnosis O10.013: Pre-existing essential hypertension complicating O24.419: Gestational diabetes mellitus in , unspecified control O99.513: Diseases of the respiratory system complicating Z3A.36: Weeks Gestation of Procedures 10891: OB US Follow-up HISTORY OB History 3. [...] 7 lb 1 oz EFW by Hadlock (VBQ-DT-RI-FL) Head / Face / Neck Biometry: Cephalic [...] Note Jakob Galeana II, MD - 05/10/2018 [facility] Pat. Name:Stephan PRESCOTT Date:05/10/2018 10:18am Pat. NO: [id number] MD:TOSHIA RAJAN [facility]Francy Ross :1985Age:32 INDICATION Maternal Hypertension, Chronic Diabetes - Gestational (unspecified) Maternal Asthma CODING Diagnosis O10.013: Pre-existing essential hypertension complicating O24.419: Gestational diabetes mellitus in , unspecified control O99.513: Diseases of the respiratory system complicating Z3A.36: Weeks Gestation of Procedures 18065: OB US Follow-up HISTORY OB History 3. [...] 7 lb 1 oz EFW by Hadlock (FZX-PX-FY-FL) Head / Face / Neck Biometry: Cephalic [...] biophysical profile Narrative 05/03/2018 4:49 PM CDT [facility] Pat. Name: SANDRA PRESCOTT Study Date: 05/03/2018 1:56pm Pat. NO: [id number] Referring MD: TOSHIA RAJAN Site: [facility] Fire And Safety Helper: Marlys Jones : 1985 Age: 32 INDICATION Other Condition Dx: HTN (hypertension), benign [I10 (ICD-10-CM)]; Diet controlled gestational diabetes mellitus (GDM) in third trimester [O24.410 (ICD-10-CM)]; Asthma, unspecified asthma severity, unspecified whether complicated, unspecified whether persistent [J45.909 (ICD-10-CM)] CODING Diagnosis XXX.10: Other condition Z3A.35: Weeks Gestation of Procedures 23515: Limited OB Ultrasound HISTORY OB History 3. [...] Kervin URIBE, Jakob Ornelas MD - 05/03/2018 [facility] Pat. Name:Stephan PRESCOTT Date:05/03/2018 1:56pm Pat. NO: [id number] :TOSHIA CUELLARBONS [facility]Marlys Jones :1985Age:32 INDICATION Other Condition Dx: HTN (hypertension), benign [I10 (ICD-10-CM)]; Diet controlled gestational diabetes mellitus (GDM) in third trimester [O24.410 (ICD-10-CM)]; Asthma, unspecified asthma severity, unspecified whether complicated, unspecified whether persistent [J45.909 (ICD-10-CM)] CODING Diagnosis XXX.10: Other condition Z3A.35: Weeks Gestation of Procedures 93342: Limited OB Ultrasound HISTORY OB History 3. [...] biophysical profile Narrative 04/26/2018 5:03 PM CDT [facility] Pat. Name: SANDRA PRESCOTT Study Date: 04/26/2018 11:02am Pat. NO: [id number] Referring MD: TOSHIA RAJAN Site: [facility] Fire And Safety Helper: Marlys Jones : 1985 Age: 32 INDICATION Other Condition Dx: HTN (hypertension), benign [I10 (ICD-10-CM)]; Diet controlled gestational diabetes mellitus (GDM) in third trimester [O24.410 (ICD-10-CM)]; CODING Diagnosis XXX.10: Other condition Z3A.34: Weeks Gestation of Procedures 09379: Limited OB Ultrasound HISTORY OB History 3. [...] Kervin URIBE, Jakob Ornelas MD - 04/26/2018 [facility] Pat. Name:SANDRA PRESCOTTZan Date:04/26/2018 11:02am Pat. NO: [id number] MD:TOSHIA RAJAN [facility]onographer:Marlys Jones :1985Age:32 INDICATION Other Condition Dx: HTN (hypertension), benign [I10 (ICD-10-CM)]; Diet controlled gestational diabetes mellitus (GDM) in third trimester [O24.410 (ICD-10-CM)]; CODING Diagnosis XXX.10: Other condition Z3A.34: Weeks Gestation of Procedures 60645: Limited OB Ultrasound HISTORY OB History 3. [...] biophysical profile Narrative 04/19/2018 4:25 PM CDT [facility] Pat. Name: SANDRA PRESCOTT Study Date: 04/19/2018 11:51am Pat. NO: [id number] Referring MD: TOSHIA RAJAN Site: [facility] Fire And Safety Helper: Marlys Jones : 1985 Age: 32 INDICATION Diabetes - Gestational (insulin) CODING Diagnosis O24.414: Gestational diabetes mellitus in , insulin controlled Z3A.33: Weeks Gestation of Procedures 74272: Limited OB Ultrasound HISTORY OB History 3. [...] Note Jakob Galeana II, MD - 04/19/2018 [facility] Name:Stephan PRESCOTT Date:04/19/2018 11:51am Pat. NO: [id number] MD:TOSHIA RAJAN [facility]Marly[facility] :1985Age:32 INDICATION Diabetes - Gestational (insulin) CODING Diagnosis O24.414: Gestational diabetes mellitus in , insulin controlled Z3A.33: Weeks Gestation of Procedures 01014: Limited OB Ultrasound HISTORY OB History 3. [...] persistent documented in this encounter Care Teams Field Artillery Senior Sergeant Relationship Specialty Start Date End Date Tamiko Christensen MD [address] [phone] PCP - General Family Practice 05/14/17 documented as of this encounter
--- OUTSIDE RECORDS SUMMARY | 2025-07-24 17:08 | XMS_ITS | Encounter Summary ---
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 Gender Identity Not on file Sexual Orientation Not on file documented as of this encounter Plan of Treatment Not on file documented as of this encounter Visit Diagnoses Diagnosis Family history of congenital anomalies documented in this encounter Additional Health Concerns Infection Onset Date Last Indicated Resolved Time MRSA Comment:RESOLVED 07/15/2010 07/15/2010 08/11/2011 12:23 PM CAPPER MACHINE OPERATOR documented as of this encounter Care Teams Repairer Shoe Sticks Relationship Specialty Start Date End Date Tamiko Christensen MD [address] [place] [phone] PCP - General Family Practice 05/14/17 documented as of this encounter
--- OUTSIDE RECORDS SUMMARY | 2025-07-24 17:08 | XMS_ITS | Patient Health Record ---
Author Organization [facility] Address [address] [place] [address] Care Team Providers Care Assistant Dean Of Students Name Role Phone Kentrell Ann MD Primary Care Provider UnavailDuyen Block Unavailable [phone] Ken Nails Unavailable [phone] Denita Faustin Unavailable Allergies Allergen (clinical drug ingredient) Drug/Non Drug Allergy documented on EMR Reaction Allergy Type Onset Date Status aspirin Aspirin low BP Drug Allergy Active duloxetine DULoxetine tachycardia Drug Allergy Act gary imipramine Imipramine rash Drug Allergy Activ e Results Component Value Reference Range Flag Notes Urine Drug Screen (cup read) - 01328 Reviewed date:07/13/2025 09:35:32 AM Interpretation: Performing Lab: Notes/Report: OPI + Urine Confirmation Panel (in strument) - [id number] Reviewed date:07/18/2025 12:45:12 PM Interpretation: Performing Lab: [...] the U.S. Food and Drug Administration. Gabapentin >30433 <225 ng/mL > This test was developed [...] Food and Drug Administration. Tox Results Reviewed date:07/18/2025 12:11:25 PM Interpretation: Performing Lab: Notes/Report: Urine Drug Screen (cup read) - 75429 Reviewed date:05/04/2025 01:07:39 PM Interpretation: Performing Lab: Notes/Report: OPI + Tox Results Reviewed date:03/07/2025 12:17:21 PM Interpretation: Performing Lab: Notes/Report: Urine Drug Screen (cup read) - 02549 Reviewed date:02/28/2025 09:07:59 AM Interpretation: Performing Lab: Notes/Report: AMP - PRAVEENA - BUP - BZO - MDMA - OPI + PCP - OXY - MTD - MAMP - Urine Confirmation Panel (in strument) - [id number] Reviewed date:03/07/2025 12:36:14 PM Interpretation: Performing Lab: [...] Name JUAN Referring Provider Speciality Nurse Casandra garciar Referred Organization [facility] Referred Provider Ken Nails Referred Address [address] [place] [phone], Referred Provider Specialty Intervention al Pain Medicine General Notes Breanne Iniguez 12:48:09 PM >mailed npp, patient is scheduled Referral Priority Routine Reason PT evaluate and sarah t for LS spondylosis Diagnosis 1 Lumbosacral spondylo sis (M47.817) Referral Organization [facility] Referring Provider First Name Denita Referring Provider Last Name Pavan Tinajero Referring Provider Speciality Pain Medic ine Referred Provider [facility] Referred Provider Specialty Preventive M edicine Referral Priority Routine Medications Medication SIG (Take, Route, Frequency, Duration) Notes Start Date End Date Status Iron Active Cetirizine HCl 10 MG Tablet 1 tablet Orally Once a day Active Calcium 600 MG Tablet 1 tablet with meals Orally Twice a day Active Acetaminophen-Codeine 300-60 MG Tablet 1 tablet Orally every 6 hrs; Duration: 30 days As needed Do not exceed 2 per day or 45/month Fill on 07/14/2025 07/13/2025 09/12/2025 Active Bariatric Multivitamins - Capsule as directed Orally Active Depakote Active Cyclobenzaprine HCl 5 MG Tablet 1 tablet Orally Once a day; Duration: 30 days As needed Fill 30 days from previous RX 07/13/2025 Active Vitamin A Active Gabapentin 300 MG Capsule 1 capsule Orally twice a day; Duration: 30 days As needed Fill 30 days from previous RX 07/13/2025 Active Ondansetron 8 MG Tablet Disintegrating 1 tablet on the tongue and allow to dissolve as needed Orally Once a day Active Social History Tobacco Use: Social History [...] taking medications for menta l health reasons taking medications for menta l health reasons taking medications for menta l health reasons Problems Problem Type SNOMED Code ICD Code Onset Dates Problem Status W/U Status Risk Notes Problem Chronic pain (02360864) Other chronic pain (G89.29) Active confirmed Problem Chronic pain syndrome (596080502) Chronic pain syndrome (G89.4) Active confirmed Problem Lumbar radiculopathy (279987379) Radiculopathy, lumbar region (M54.16) Active confirmed Problem Fibromyalgia (177599632) Fibromyalgia (M79.7) Active confirmed Problem Lumbosacral spondylosis without myelopathy (80148708) Spondylosis of lumbosacral region without myelopathy or radiculopathy (M47.817) Active confirmed Problem Arthralgia of the pelvic region and thigh (795451244) Left hip pain (M25.552) Active confirmed Problem Arthralgia of the pelvic region and thigh (905472667) Right hip pain (M25.551) Active confirmed Problem Myalgia (20917755) Myalgia (M79.10) Active confirmed Problem Lumbosacral radiculopathy (6527895) Lumbosacral radiculopathy (M54.17) Active confirmed Problem High risk drug monitoring status (241821291) Chronic prescription opiate use (Z79.891) Active confirmed Problem Cognitive impairment (503363868) Cognitive impairment (R41.89) Active confirmed Problem Lumbosacral spondylosis (055596765) Lumbosacral spondylosis (M47.817) Active confirmed Problem Long-term current use of drug therapy (143631928) Analgesic use (Z79.899) Active confirmed Problem Disorder of sacrum (15821814) Disorder of sacrum (M53.3) Active confirmed Vital Signs Weight-kg 90.72 kg 07/13/2025 Weight 200 lbs 07/13/2025 Procedures Procedure Date Ordered Date Performed Result Body Sit e Inj. Trigger Point(s), 1 or 2 muscles, (Piriformis Injection) - 20886 03/21/2025 03/21/2025 N/A Inj. SI Joint w/ imaging raj maksim (CT or fluoroscopy) - 15823 04/19/2025 05/31/2025 07 Conscious Sedation, Professi onal Only - 60812 04/19/2025 05/31/2025 N/A Encounters Encounter Location Date Provider Diagnosis [facility] [employer] [address] [facility] [place] [place] [address] 07/13/2025 Duyen Bond Chronic pain syndrome G89.4 ; Fibromyalgia M79.7 ; Spondylosis of lumbosacral region without myelopathy or radiculopathy M47.817 ; Disorder of sacrum M53.3 ; Myalgia M79.10 ; Cognitive impairment R41.89 ; Radiculopathy, lumbar region M54.16 ; Analgesic use Z79.899 ; Right hip pain M25.551 and Left hip pain M25.552 [facility] [employer] [address] [place] [address] 05/04/2025 Duyen Bond Chronic pain syndrome G89.4 ; Fibromyalgia M79.7 ; Spondylosis of lumbosacral region without myelopathy or radiculopathy M47.817 ; Disorder of sacrum M53.3 ; Right hip pain M25.551 ; Left hip pain M25.552 ; Myalgia M79.10 ; Cognitive impairment R41.89 and Analgesic use Z79.899 [facility] [address] [place] [address] 05/31/2025 Denita Lyuksyutova-Pric e Disorder of sacrum M53.3 [facility] [address] [address] 02/28/2025 Denita Lyuksyutova-Pric e Chronic pain syndrome G89.4 ; Fibromyalgia M79.7 ; Spondylosis of lumbosacral region without myelopathy or radiculopathy M47.817 ; Disorder of sacrum M53.3 ; Right hip pain M25.551 ; Left hip pain M25.552 ; Myalgia M79.10 ; Cognitive impairment R41.89 and Analgesic use Z79.899 [facility] [address] [place] [address] 03/21/2025 Denita Lyuksyutova-Pric e Myalgia of auxiliary muscles, head and neck M79.12 [facility] [address] [address] 05/04/2025 Ken Nails Fibromyalgia M79.7 [facility] [place] [address] [place] [address] 03/14/2025 Denita Napolessychinoova-Pric e Chronic pain syndrome G89.4 [facility] [employer] [address] [place] [address] 07/13/2025 Denita Napolessychinoova-Pric e Fibromyalgia M79.7 Assessments Encounter Date Diagnosis (ICD Code) Assessment Notes Treatment Notes Treatment Clinical Notes Section Notes 03/14/2025 Chronic pain syndrome (ICD-10 - G89.4) 03/21/2025 Myalgia of auxiliary muscles, head and neck (ICD-10 - M79.12) 05/04/2025 Chronic pain syndrome (ICD-10 - G89.4) I had a nice discussion with the patient today regarding her chronic pain complaints. She continues with lower back pain, bilateral hip pain, myalgia mediated pain. She feels the trigger point injections did help her pain some. She is scheduled for bilateral SI joint injections next month. She reports she had to move her appointment due to a conflicting appointment. She does state that her medication is partially effective but she is struggling in the evening with her pain some evenings. After discussion, we will trial her on an increase of her Tylenol #4 to 45/month. She is also requesting that we take over her cyclobenzaprine 5 mg daily which we will do for her. She reports she is been seeing Dr. Ang for a seizure disorder. She denies any other changes since we [...] effects are noted. Last UDS and [place] BOILERMAKER'S ASSISTANT reviewed today. Patient is advised that best long-term goals include increased activity, core strengthening, proper weight management, coping strategies, avoidance of painful triggers, and targeted interventional therapy. We will see the patient for routine follow up in accordance with all clinic policies. We did remind patient today of current guidelines to decrease opioid when possible. We will continue to stress nonopioid treatment. URINE TESTING TODAY; POINT OF SERVICE Urine drug screening will be performed today to monitor compliance with opioid therapy or to serve as a baseline screen for a patient who may be a candidate for opioid therapy in the future, pending UDS results. We will monitor with in-office testing (rapid testing) today and review the results prior to dispensing prescription, as well. Patient has been made aware of this policy. 05/04/2025 Fibromyalgia (ICD-10 - M79.7) 05/31/2025 Disorder of sacrum (ICD-10 - M53.3) 07/13/2025 Chronic pain syndrome (ICD-10 - G89.4) [...] effects are noted. Last UDS and [place] BOILERMAKER'S ASSISTANT reviewed today. Patient is advised that best [...] policy. 07/13/2025 Fibromyalgia (ICD-10 - M79.7) 07/13/2025 Fibromyalgia (ICD-10 - M79.7) 02/28/2025 Chronic pain syndrome (ICD-10 - G89.4) [...] without myelopathy or radiculopathy (ICD-10 - M47.817) 07/13/2025 Spondylosis of lumbosacral region without myelopathy [...] the procedure and all questions were answered. 05/04/2025 Fibromyalgia (ICD-10 - M79.7) 05/04/2025 Spondylosis of lumbosacral region without myelopathy or radiculopathy (ICD-10 - M47.817) 07/13/2025 Disorder of sacrum (ICD-10 - M53.3) 02/28/2025 Disorder of sacrum (ICD-10 - M53.3) [...] cooperation, while also minimizing anxiety and discomfort. 07/13/2025 Myalgia (ICD-10 - M79.10) 02/28/2025 Right hip pain (ICD-10 - M25.551) 05/04/2025 Disorder of sacrum (ICD-10 - M53.3) 05/04/2025 Right hip pain (ICD-10 - M25.551) 02/28/2025 Left hip pain (ICD-10 - M25.552) 07/13/2025 Cognitive impairment (ICD-10 - R41.89) 02/28/2025 Myalgia (ICD-10 - M79.10) Patient has [...] proceed with ultrasound guided trigger point injections 05/04/2025 Left hip pain (ICD-10 - M25.552) 07/13/2025 Radiculopathy, lumbar region (ICD-10 - M54.16) 05/04/2025 Myalgia (ICD-10 - M79.10) 02/28/2025 Cognitive impairment (ICD-10 - R41.89) 07/13/2025 Analgesic use (ICD-10 - Z79.899) 02/28/2025 Analgesic use (ICD-10 - Z79.899) 05/04/2025 Cognitive impairment (ICD-10 - R41.89) 07/13/2025 Right hip pain (ICD-10 - M25.551) 07/13/2025 Left hip pain (ICD-10 - M25.552) 05/04/2025 Analgesic use (ICD-10 - Z79.899) 02/28/2025 Other I, norm [place] for Dr. Pelletier. I, Dr. Pelletier, personally performed the services described in [...] our urine testing policy. Plan Of Treatment Future Test Test Name Order Date Epidural, Lumbar/Sacral (Caudal), w/ [facility] - [id number] 07/13/2025 Next Appt Details Provider Name:Denita Moran Heriberto Granados, 08/09/2025 10:20:00 AM, [address] [place], [address], Provider Name:Denita Moran Heriberto Granados, 09/12/2025 01:40:00 PM, [address] [place], [address], Insurance Providers Payer Name Payer Address Payer Phone Subscriber Number Group Number Insured Name Patient Relationship to Insured Coverage Start Date Coverage End Date [place] Medicaid [address] [place] [address] [id number] Sandra Florez Self - patient is the insured Medical (General) History Medical History History ICD Code asthma Stomach Ulcer migraine headaches seizures Depression Arthritis constipation Surgical History Surgery Date(Month/Year) breast augmentation 2007 gall bladder removal 2015 hernia repair gastric bypass 2023
--- OUTSIDE RECORDS SUMMARY | 2025-07-24 17:08 | XMS_ITS | Clinical Summary ---
Author Organization [facility] Address [address] [place] [address] Phone Care Team Providers Care Field Training Manager Name Role Phone Tamiko Christensen MD Primary Care Provid er Allergies Active Allergy Reactions Criticality Noted Date Comments [employer] Other (See Comments) 05/14/2017 Sneezing. Imipramine Rash Low 04/28/2010 Oxybenzone-Padimate O Rash Medium 03/30/2011 Medications [id number] no6-dha 28 mg iron- 1 mg-400 mg [...] the great vessels; lived 6h. born in [place], [place]. 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 Gender Identity Not on file Sexual [...] M series) 11/21/2010 PAP SMEAR 10/21/2020 10/21/2017, 11/0 09/2015, 03/01/2013, [...] PAP RLFX HPV Routine 10/21/2017 11:52 AM ANIMAL SHELTER SUPERVISOR Encounter for screening of mother from Last 3 Months or Most Recently Relevant to Health Maintenance Results * GLUCOSE FASTING (07/01/2018 10:38 AM CDT) GLUCOSE-FASTIN G 91 74 - 99 mg/dL 07/01/2018 11:57 AM CDT [facility] Blood Venipuncture / Unknown 07/01/2018 10:38 AM CDT 07/01/2018 10:38 AM CDT Jakob Galeana II, MD CHEMISTRY ORDERABLES Fatuma l Result [facility] CLIA# [id number] [address] [place] [address] * CERV/VAG CYTOPATH, THIN PREP IMAGR RFLX HPV (10/21/2017 11:52 AM ANIMAL SHELTER SUPERVISOR) CLINICAL INFORMATION SEE COMMENT 10/26/2017 4:36 PM ANIMAL SHELTER SUPERVISOR [facility] Comment:Information not prov ided LAST MENSTRUAL PERIOD SEE COMMENT 10/26/2017 4:36 PM ANIMAL SHELTER SUPERVISOR [facility] Comment:INFORMATION NOT PROV IDED PREV PAP: SEE COMMENT 10/26/2017 4:36 PM ANIMAL SHELTER SUPERVISOR [facility] Comment:INFORMATION NOT PROV IDED PREV BX: SEE COMMENT 10/26/2017 4:36 PM ANIMAL SHELTER SUPERVISOR [facility] Comment:INFORMATION NOT PROV IDED SOURCE Endocervix 10/26/2017 4:36 PM ANIMAL SHELTER SUPERVISOR [facility] ADEQUACY: SEE COMMENT 10/26/2017 4:36 PM ANIMAL SHELTER SUPERVISOR [facility] Comment: Satisfactory for evaluation. Endocervical/transformation zone component present. Age and/or menstrual status not provided PAP INTERP SEE COMMENT 10/26/2017 4:36 PM ANIMAL SHELTER SUPERVISOR [facility] Comment:Negative for intraep ithelial lesion or malignancy. COMMENT SEE COMMENT 10/26/2017 4:36 PM ANIMAL SHELTER SUPERVISOR [facility] Comment: This Pap test has been evaluated with computer assisted technology. SENIOR PRODUCTION SUPERVISOR: SEE COMMENT 2017 4:36 PM ANIMAL SHELTER SUPERVISOR [facility] Comment: BES, CT(ASCP) CT screening location: [place] [address] Administration JASON Jain [address] Genital SWAB OF ENDOCERVIX / Unknown Collection / Unknown 10/21/2017 11:52 AM ANIMAL SHELTER SUPERVISOR 10/22/2017 7:47 AM ANIMAL SHELTER SUPERVISOR Narrative [facility] - 10/26/2017 4:36 PM ANIMAL SHELTER SUPERVISOR Performing Organization Information: Site ID: Name: [facility] Address: [facility] J[place]ON [place] [address] Director: Lino Rosas MD Toshia Rajan MD PATHOLOGY/CYTOLOGY ORDERAB LES Final Result Performing Organization Address City/State/[facility] Co de Phone Number [facility] from Last 3 Months or Most Recently Relevant to Health Maintenance Insurance [employer] [facility] MEDICAID [place] Advance Directives For more information, please contact: [phone] * Full Code (Latest Code Status on [...] 11:38 AM 06/07/2013 4:40 PM Care Teams Field Training Manager Relationship Specialty Start Date End Date Tamiko Christensen MD [address] [place] [id number] PCP - General Family Practice 05/14/17
[2025-07-24 17:23] VITALS: BP 118/80; PULSE 86; RESP 15; TEMP 36.7; O2SAT 99
--- NOTE | 2025-07-24 19:16 | W.ED.EXTPRO ---
HPI - Extremity Problem General: Chief complaint: Extremity Injury, Lower Stated complaint: R foot pain dropped a can of beans on it Time Seen by Provider: 07/24/25 19:13 History of Present Illness: 39-year-old female with a history of depression, thyroid disease, obesity, anxiety, PTSD, migraines, asthma and fibromyalgia who presents to the emergency room with foot pain. She dropped a can of beans on her right foot. She has some bruising but no obvious deformities. Neurovascularly intact. No other injuries. She is able to bear weight but it hurts Related Data Home Medications ?Medication ?Instructions ?Recorded ?Confirmed fluticasone propionate 50 2 spray intranasal BID 09/20/19 07/13/25 mcg/actuation nasal spray,suspension (Allergy Relief (fluticasone)) calcium 250 mg-D3 500 unit-vit K 1 tab PO BID 04/04/24 07/13/25 25 jev-hzmyytpnw-wrbtzz-borate tablet acetaminophen 300 mg-codeine 60 mg 1 tab PO DAILY PRN Pain 12/06/24 07/13/25 tablet cyclobenzaprine 5 mg tablet 5 mg PO DAILY PRN Spasms 12/06/24 07/13/25 ferrous sulfate 325 mg (65 mg 325 mg PO DAILY 04/16/25 07/13/25 iron) tablet gabapentin 300 mg capsule 300 mg PO BID 04/16/25 07/13/25 ketoconazole 2 % shampoo 1 applic topical Q14D PRN Skin 04/16/25 07/13/25 Irritation naloxone 4 mg/actuation nasal See Rx Instructions .Route .COMPLEX 04/16/25 07/13/25 spray (Narcan) vitamin A 3,000 mcg (10,000 unit) 3,000 mcg PO DAILY 04/16/25 07/13/25 capsule rhuzgilg-xtwibxhs-wmvj 45 mg-folic 1 cap PO DAILY 05/10/25 07/13/25 acid 800 mcg-vit K 120 mcg capsule (Bariatric Multivitamins) Previous Rx's ?Medication ?Instructions ?Recorded cetirizine 10 mg tablet (Zyrtec) 10 mg PO DAILY #30 tabs 11/30/19 fluticasone propionate 220 2 puff inhalation BID #12 grams 12/26/19 mcg/actuation HFA aerosol inhaler (Flovent HFA) left and right hinged knee brace #1 ea 02/14/25 tizanidine 4 mg tablet 4 mg PO Q6H PRN muscle spasticity 04/19/25 #20 tabs albuterol sulfate 90 mcg/actuation 2 puff inhalation Q6H PRN 05/10/25 aerosol inhaler (Ventolin HFA) shortness of breath or wheezing #8.5 grams triamcinolone acetonide 0.5 % 1 applic topical BID 7 days #15 05/10/25 topical cream grams hydroxyzine HCl 50 mg tablet 50 mg PO BID PRN anxiety #60 tabs 05/23/25 Cock up wrist splint #1 ea 07/04/25 divalproex 250 mg tablet,extended See Rx Instructions .Route 07/13/25 release 24 hr .COMPLEX #90 tabs buspirone 15 mg tablet 15 mg PO BID #60 tabs 07/21/25 Allergies Allergy/AdvReac Type Severity Reaction Status Date / Time aspartame Allergy Severe Headache Verified 07/24/25 17:28 egg Allergy Mild Unknown Verified 07/24/25 17:28 aspirin Allergy ADR/ALGY-Hy Verified 07/24/25 17:28 potension cedarwood Allergy runny nose Verified 07/24/25 17:28 imipramine Allergy Rash Verified 07/24/25 17:28 milk Allergy bloating Verified 07/24/25 17:28 NSAIDS (Non-Steroidal Allergy Unknown Verified 07/24/25 17:28 Anti-Inflamma Sunblock Allergy Unknown Uncoded 07/24/25 17:28 Review of Systems Narrative: Constitutional symptoms: Negative except as documented in HPI. Skin symptoms: Negative except as documented in HPI. Eye symptoms: Negative except as documented in HPI. ENMT symptoms: Negative except as documented in HPI. Respiratory symptoms: Negative except as documented in HPI. Cardiovascular symptoms: Negative except as documented in HPI. Gastrointestinal symptoms: Negative except as documented in HPI. Genitourinary symptoms: Negative except as documented in HPI. Musculoskeletal symptoms: Negative except as documented in HPI. Neurologic symptoms: Negative except as documented in HPI. Psychiatric symptoms: Negative except as documented in HPI. Endocrine symptoms: Negative except as documented in HPI. PFSH ED PFSH: Medical History (Updated 07/24/25 @ 19:15 by Constance Rose MD) MDD (major depressive disorder), recurrent, in partial remission FH: thyroid disease FH: colon cancer in relative <50 years old Grandfather at age 40 colon cancer , 01/2023 EGD small Hiatal hernia and polyp's removed, no colonoscopy yet Weight loss, intentional 11/21/2022 274 lbs, 10/07/2023 251 lbs History of prediabetes last A1c 5.4 in 2022 BMI 40.0-44.9, adult Major depressive disorder, recurrent, moderate Psychiatric care Ventral hernia Blood type O- Obesity Generalized anxiety disorder Post-traumatic stress disorder, chronic Migraine without aura Asthma Fibromyalgia Surgical History History of hernia repair (~08/2020) History of cholecystectomy 2016 History of bilateral breast reduction surgery (2007) 2007 breast reduction History of abdominoplasty (2012) 2012 Pannus removal, karen peña @ [facility] Family History Mother Hypertension Diabetes Graves disease Grandmother Stroke Maternal Diabetes Paternal Father Hypercholesterolemia Grandfather Cancer Maternal Grandfather: Mesothelioma Grandfather Colon cancer Paternal---dx age unknown Denies family history of Ovarian cancer Heart disease Breast cancer Uterine cancer Social History Smoking and tobacco/nicotine status: never used tobacco/nicotine Alcohol intake: former Year of sobriety/quit date alcohol: 2010 Substance/Drug Use: never Additional social history: Well-balanced diet No substance abuse. 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 Skin: warm and dry Head: Normocephalic Neck: Trachea midline Eye: Extraocular movements are intact. Ears, nose, mouth and throat: Oral mucosa moist Respiratory: Respirations are non-labored Musculoskeletal: Normal ROM, no deformities. Some mild bruising. Gastrointestinal: Abdomen does not appear distended Neurological: Alert and oriented, No focal neurological deficit observed. Psychiatric: Cooperative, appropriate mood & affect. Course Vital Signs: Vital signs: Vital Signs Temperature 98.1 F 07/24/25 17:23 Pulse Rate 86 07/24/25 17:23 Respiratory Rate 15 07/24/25 17:23 Blood Pressure 118/80 07/24/25 17:23 Pulse Oximetry 99 07/24/25 17:23 Oxygen Delivery Me thod Room Air 07/24/25 17:23 MDM - Extremity (Nontraumatic) Medical Decision Making Medical decision making: Patient's reason for coming to the emergency room: Traumatic foot pain Social determinants: Disability. I reviewed the patient's medical record. 39-year-old female with a history of depression, thyroid disease, obesity, anxiety, PTSD, migraines, asthma and fibromyalgia and chronic pain syndrome I reviewed the patient's current home meds Patient receives Tylenol with codeine chronically. Differential diagnosis including but not limited to and based on the above HPI, review of systems and physical exam: In this patient with a musculoskeletal extremity traumatic injury and x-ray is being ordered to rule out fractures and dislocations. Orders placed to evaluate differential diagnosis based on the above differential, HPI and physical exam X-ray of the left foot: No acute process. This was reviewed and interpreted by myself the emergency room physician. I also reviewed the radiology report. Lab Review: Laboratory results were reviewed and interpreted by myself the emergency room physician. No lab work indicated today. Assessment of risk: Level of risk: Moderate. Multiple comorbidities and disability. Hospitalization considerations: No consideration of hospitalization today Assessment and plan: Foot contusion - Discharged home - Discussed plan with patient. Answered any questions. - Evaluation and treatment of this problem were appropriate in the emergency setting. Lab Data Radiology Impressions Foot X-Ray 07/24/25 17:06 IMPRESSION: No definite acute fracture, subluxation, dislocation. All radiology interpretation(s) finalized by discharge Discharge Plan Discharge Patient Disposition: Home Clinical Impression: Contusion of foot Condition: Stable Prescriptions: No Action cetirizine [Zyrtec] 10 mg tablet 10 mg PO DAILY Qty: 30 2RF fluticasone propionate [Allergy Relief (fluticasone)] 50 mcg/actuation spray,suspension 2 spray INTRANASAL BID Ca Son-S9-Y-Hivj-wmlmx-wsj bor 250 mg calcium -500 unit tablet 1 tab PO BID acetaminophen-codeine 300-60 mg tablet 1 tab PO DAILY PRN (Reason: Pain) cyclobenzaprine 5 mg tablet 5 mg PO DAILY PRN (Reason: Spasms) hydroxyzine HCl 50 mg tablet 50 mg PO BID PRN (Reason: anxiety) Qty: 60 2RF Rx Instructions: Take one tablet twice a day, if needed for anxiety, at least 4 hours apart Bariatric Multivitamins 45 mg iron- 800 mcg-120 mcg capsule 1 cap PO DAILY triamcinolone acetonide 0.5 % cream 1 applic topical BID 7 Days Qty: 15 0RF albuterol sulfate [Ventolin HFA] 90 mcg/actuation HFA aerosol inhaler 2 puff inhalation Q6H PRN (Reason: shortness of breath or wheezing) Qty: 8.5 0RF (DME) Cock up wrist splint See Rx Instructions .Route .MEDSUPPLY Qty: 1 0RF Rx Instructions: As directed (DME) left and right hinged knee brace See Rx Instructions .Route .MEDSUPPLY Qty: 1 0RF Rx Instructions: As directed Flovent HFA 220 mcg/actuation HFA aerosol inhaler 2 puff INHALATION BID Qty: 12 1RF Rx Instructions: In Cailin Friend absence's divalproex 250 mg tablet extended release 24 hr See Rx Instructions .ROUTE .COMPLEX Qty: 90 3RF Dose Instruction: TAKE 4 TABLETS BY MOUTH EVERY EVENING Rx Instructions: TAKE 4 TABLETS BY MOUTH EVERY EVENING buspirone 15 mg tablet 15 mg PO BID Qty: 60 2RF Rx Instructions: Take one tablet twice daily; stop 10 mg dose vitamin A 3,000 mcg (10,000 unit) Capsule 3,000 mcg PO DAILY ferrous sulfate 325 mg (65 mg iron) Tablet 325 mg PO DAILY gabapentin 300 mg capsule 300 mg PO BID naloxone [Narcan] 4 mg/actuation spray,non-aerosol See Rx Instructions .ROUTE .COMPLEX Rx Instructions: CALL 911. Use one full spray in one nostril one time. Repeat every 2-3 minutes as needed if no or minimal response. ketoconazole 2 % shampoo 1 applic topical Q14D PRN (Reason: Skin Irritation) Rx Instructions: Lather into scalp 2-3 times weekly. Allowed to sit on scalp for 5 minutes before rinsing. tizanidine 4 mg tablet 4 mg PO Q6H PRN (Reason: muscle spasticity) Qty: 20 0RF Rx Instructions: do not exceed 3 doses per 24 hrs Discharge Orders: Discharge ED (Routine); Ordered 07/24/25 Ordered By: Constance Rose Referrals: Kentrell Ann [Primary Care Provider, Family Practice] Discharge Diet: Usual diet Discharge Activity: Increase activity as tolerated Patient Instructions: P.R.I.C.E. Treatment (ED), Opioid Safety, Pain Management, Patient Portal & Berenice Instructions Activity Restrictions/Additional Instructions: Thank you for choosing [facility] for your healthcare needs today. You have been screened and evaluated and felt safe for discharge. Health conditions do change or evolve sometimes and as such it is important that you follow up with your Primary Doctor to be re checked, 3-5 days is a general good time frame for follow up. You are always welcome to return to the ED for re assessment if your symptoms are worsening or you have new concerns Print Language: Faroese Coding Level of Care Code ED Crm Specialist for Jess Gamboa
[2025-07-24 19:21] VITALS: BP 134/99; PULSE 73; RESP 14; O2SAT 98
== END 2025-07-24 19:22 | disposition home or self-care (01) ==
PROVIDERS: Emergency Provider Emergency Medicine; PCP Family Medicine
DX: S90.31XA Contusion of right foot, initial encounter (principal); W20.8XXA Other cause of strike by thrown, projected or falling object, initial encounter
CPT/HCPCS: 73630; 99283

== ENCOUNTER → 2025-08-03 14:42 | Outpatient (BNVA) | payer MEDICAID, SELFPAY ==
[2025-01-23 15:14] VITALS: BP 131/94; BMI 29.6
== END ==
PROVIDERS: PCP Family Medicine; Visit Provider Orthopaedic Surgery
DX: Z01.818 Encounter for other preprocedural examination (principal); M48.062 Spinal stenosis, lumbar region with neurogenic claudication
CPT/HCPCS: 36415; 72110; 80053; 81001; 85025; 99204; 99214

== ENCOUNTER 2025-08-14 19:02 | Emergency (ER) | payer MEDICAID, SELFPAY ==
[2025-01-23 15:14] VITALS: BP 131/94; BMI 29.6
[2025-08-14 19:02] VITALS: BP 126/79; PULSE 79; RESP 18; TEMP 37.1; O2SAT 99; BMI 34.3
--- OUTSIDE RECORDS SUMMARY | 2025-08-14 19:10 | XMS_ITS | Encounter Summary ---
Author Organization [facility] Address [address] [place] [address] Care Team Providers Care Director Investment Banking Name Role Phone Tamiko Christensen MD Primary Care Provid er Reason for Referral * Outpatient Services (Routine) - Closed Specialty Diagnoses / Procedures Referred By Kale richardson Referred To Contact Perinatology Diagnoses At risk for gestational diabetes mellitus Family history of transposition of great vessels Procedures ECHO 2D + COLOR FLOW VELOCITY Toshia Rajan MD Phone: tel: fax: [facility] [address] Phone: tel: fax: Referral ID Status Reason Start Date Expiration Date Visits Requested Visits Authorized [id number] Closed Ordering Department To Schedule 01/14/2018 02/14/2019 1 1 * Outpatient Services (Routine) - Closed Specialty Diagnoses / Procedures Referred By Kale richardson Referred To Contact Perinatology Diagnoses At risk for gestational diabetes mellitus Procedures US OB FOLLOW UP PER FETUS Toshia Rajan MD Phone: tel: fax: [facility] [place] [address] Phone: tel: fax: Referral ID Status Reason Start Date Expiration Date Visits Requested Visits Authorized [id number] Closed Ordering Department To Schedule 01/14/2018 02/14/2019 1 1 * Outpatient Services (Routine) - Closed Specialty Diagnoses / Procedures Referred By Kale t Referred To Contact Perinatology Diagnoses At risk for gestational diabetes mellitus Procedures US OB FOLLOW UP PER FETUS Toshia Rajan MD Phone: tel: fax: [facility] [place] [address] Phone: tel: fax: Referral ID Status Reason Start Date Expiration Date Visits Requested Visits Authorized [id number] Closed Ordering Department To Schedule 01/14/2018 02/14/2019 1 1 Encounter Details Date Type Department Care Team (Late st Contact Info) Description 01/14/2018 Ancillary Orders [facility] OBGYN[address] [place] [address] Toshia Rajan MD [address] [facility] [address] [place] [address] At risk for gestational diabetes [...] on file 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 Name: SANDRA PRESCOTT Study Date: 04/12/2018 10:35am Pat. NO: [id number] Referring MD: TOSHIA RAJAN Site: [facility] Rehab Rn: Marlys Jones : 1985 Age: 32 INDICATION Maternal Hypertension, Chronic CODING Procedures 65350: OB US Follow-up HISTORY OB History 3. [...] 4 lb 9 oz EFW by Hadlock ([id number]) Head / Face / Neck Biometry: Cephalic index 0.79 44% Jeramie Photographer Lithographic 6.1 mm Extremities / Bony Struc Biometry: [...] Note Jakob Galeana II, MD - 04/12/2018 [place] Follow Up Pat. Name:Stephan PRESCOTT Date:04/12/2018 10:35am Pat. NO: [id number] MD:TOSHIA RAJAN Site:[place] MFMSonographer:Marlys Jones :1985Age:32 INDICATION Maternal Hypertension, Chronic CODING Procedures 01541: OB US Follow-up HISTORY OB History 3. [...] 4 lb 9 oz EFW by Hadlock ([id number]-FL) Head / Face / Neck Biometry: Cephalic index 0.7944% Nicolaides Photographer Lithographic 6.1 mm Extremities / Bony Struc Biometry: [...] gestational age Narrative 03/15/2018 4:30 PM T [place] Follow Up Pat. Name: SANDRA PRESCOTT Study Date: 03/15/2018 8:23am Pat. NO: [id number] Referring MD: TOSHIA RAJAN Site: [facility] Rehab Rn: Karina Seymour : 1985 Age: 32 INDICATION Other Condition Dx: At risk for gestational diabetes mellitus [Z91.89 (ICD-10-CM)] CODING Diagnosis XXX.10: Other condition Z3A.28: Weeks Gestation of Procedures 40627: OB US Follow-up HISTORY OB History 3. [...] 3 lb 2 oz EFW by Hadlock ([id number]-FL) Head / Face / Neck Biometry: Cephalic index 0.75 12% Nicolaides Photographer Lithographic 5.7 mm Extremities / Bony Struc Biometry: [...] Kervin URIBE, Jakob Ornelas MD - 03/15/2018 [place] Follow Up Pat. Name:Stephan PRESCOTT Date:03/15/2018 8:23am Pat. NO: [id number] MD:TOSHIA RAJAN [facility] :1985Age:32 INDICATION Other Condition Dx: At risk for gestational diabetes mellitus [Z91.89 (ICD-10-CM)] CODING Diagnosis XXX.10: Other condition Z3A.28: Weeks Gestation of Procedures 80162: OB US Follow-up HISTORY OB History 3. [...] 3 lb 2 oz EFW by Hadlock ([id number]-FL) Head / Face / Neck Biometry: Cephalic index 0.7512% Nicolaides Photographer Lithographic 5.7 mm Extremities / Bony Struc Biometry: [...] INTERFACE SYSTEM - 02/17/2018 8:27 AM T [place] Echo Pat. Name: SANDRA PRESCOTT Study Date: 02/16/2018 8:22am Pat. NO: [id number] Referring MD: TOSHIA RAJAN Site: [facility] Rehab Rn: Art Alcaraz : 1985 Age: 32 INDICATION Other Condition At risk for gestational diabetes mellitus [Z91.89 (ICD-10-CM)]; Family history of transposition of great vessels [Z82.79 (ICD-10-CM CODING Procedures 39362: Echo 2D 25006: Echo Spectral Doppler 06993: Doppler Color Flow Mapping HISTORY OB History [...] subcostal LVOT view normal RVOT view normal 7-niqkuq-grxumos view normal, 3 vessel and 3 vessel [...] Note Jakob Galeana II, MD - 02/17/2018 [place] Echo Pat. Name:Stephan PRESCOTT Date:02/16/2018 8:22am Pat. NO: [id number] MD:TOSHIA RAJAN Site:[place] MFMSonographer:Art Alcaraz :1985Age:32 INDICATION Other Condition At risk for gestational diabetes mellitus [Z91.89 (ICD-10-CM)]; Family history of transposition of great vessels [Z82.79 (ICD-10-CM CODING Procedures 02200: Echo 2D 22958: Echo Spectral Doppler 44807: Doppler Color Flow Mapping HISTORY OB History [...] subcostal LVOT view normal RVOT view normal 5-vkaahq-fonjthg view normal, 3 vessel and 3 vessel [...] mellitus documented in this encounter Care Teams Director Investment Banking Relationship Specialty Start Date End Date Tamiko Christensen MD [address] [place] [address] PCP - General Family Practice 05/14/17 documented as of this encounter
--- OUTSIDE RECORDS SUMMARY | 2025-08-14 19:10 | XMS_ITS | Encounter Summary ---
Author Organization [facility] Address [address] [place] [address] Care Team Providers Care Neck Cutter Name Role Phone Tamiko Christensen MD Primary Care Provid er Reason for Referral * Outpatient Services (Routine) - Closed Specialty Diagnoses / Procedures Referred By Kale richardson Referred To Contact Perinatology Diagnoses At risk for gestational diabetes mellitus Family history of transposition of great vessels Procedures US OB FOLLOW UP PER FETUS Toshia Rajan MD Phone: tel: fax: [facility] [place] [address] Phone: tel: fax: Referral ID Status Reason Start Date Expiration Date Visits Requested Visits Authorized [id number] Closed Ordering Department To Schedule 02/11/2018 03/14/2019 1 1 Encounter Details Date Type Department Care Team (Late st Contact Info) Description 02/11/2018 Ancillary Orders [facility] OBGYN-[address] [place] [address] Toshia Rajan MD [address] [facility] [place] [id number] At risk for gestational diabetes mellitus; Family [...] on file 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 Name: SANDRA PRESCOTT Study Date: 02/16/2018 8:12am Pat. NO: [id number] Referring MD: TOSHIA RAJAN Site: [facility] Medical Research Assistant: Art Alcaraz : 1985 Age: 32 INDICATION Other Condition At risk for gestational diabetes mellitus [Z91.89 (ICD-10-CM)]; Family history of transposition of great vessels [Z82.79 (ICD-10-CM)] CODING Procedures 93884: OB US Follow-up HISTORY OB History 3. [...] 1 lb 13 oz EFW by Hadlock ([id number]-FL) Head / Face / Neck Biometry: Cephalic index 0.73 6% Nicolaides Bell Clerk 3.0 mm Extremities / Bony Struc Biometry: [...] Note Jakob Galeana II, MD - 02/17/2018 [place] Follow Up Pat. Name:Stephan PRESCOTT Date:02/16/2018 8:12am Pat. NO: [id number] MD:TOSHIA RAJAN [facility] :1985Age:32 INDICATION Other Condition At risk for gestational diabetes mellitus [Z91.89 (ICD-10-CM)]; Family history of transposition of great vessels [Z82.79 (ICD-10-CM)] CODING Procedures 48651: OB US Follow-up HISTORY OB History 3. [...] 1 lb 13 oz EFW by Hadlock ([id number]) Head / Face / Neck Biometry: Cephalic index 0.73 6% Nicolaides Bell Clerk 3.0 mm Extremities / Bony Struc Biometry: [...] Estimated weight is appropriate for gestational age Toshia Rajan MD ORDERABLES Final Resu lt documented in this encounter Visit Diagnoses Diagnosis At risk for gestational diabetes mellitus Family history of transposition of great vessels Family history of congenital anomalies At risk for gestational diabetes mellitus Family history of transposition of great vessels Family history of congenital anomalies documented in this encounter Care Teams Neck Cutter Relationship Specialty Start Date End Date Tamiko Christensen MD [address] [place] [phone] PCP - General Family Practice 05/14/17 documented as of this encounter
--- OUTSIDE RECORDS SUMMARY | 2025-08-14 19:10 | XMS_ITS | Clinical Summary ---
Author Organization [facility] Address [address] [place] [address] Phone Care Team Providers Care Economic Adviser Name Role Phone Tamiko Christensen MD Primary Care Provid er Allergies Active Allergy Reactions Criticality Noted Date Comments Cedarwood Oil Other (See Comments) 05/14/2017 Sneezing. Imipramine Rash Low 04/28/2010 Oxybenzone-Padimate O Rash Medium 03/30/2011 Medications pgx21-xqle-IT no6-dha 28 mg iron- 1 mg-400 mg [...] the great vessels; lived 6h. born in [place], [place]. 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 Gender Identity Not on file Sexual [...] PAP RLFX HPV Routine 10/21/2017 11:52 AM DISTANCE LEARNING COORDINATOR Encounter for screening of mother from Last 3 Months or Most Recently Relevant to Health Maintenance Results * GLUCOSE FASTING (07/01/2018 10:38 AM CDT) GLUCOSE-FASTIN G 91 74 - 99 mg/dL 07/01/2018 11:57 AM CDT [facility] Blood Venipuncture / Unknown 07/01/2018 10:38 AM CDT 07/01/2018 10:38 AM CDT Jakob Galeana II, MD CHEMISTRY ORDERABLES Fatuma l Result [facility] CLIA# [id number] [id number] [place] [address] * CERV/VAG CYTOPATH, THIN PREP IMAGR RFLX HPV (10/21/2017 11:52 AM DISTANCE LEARNING COORDINATOR) CLINICAL INFORMATION SEE COMMENT 10/26/2017 4:36 PM DISTANCE LEARNING COORDINATOR [facility] Comment:Information not prov ided LAST MENSTRUAL PERIOD SEE COMMENT 10/26/2017 4:36 PM DISTANCE LEARNING COORDINATOR [facility] Comment:INFORMATION NOT PROV IDED PREV PAP: SEE COMMENT 10/26/2017 4:36 PM DISTANCE LEARNING COORDINATOR [facility] Comment:INFORMATION NOT PROV IDED PREV BX: SEE COMMENT 10/26/2017 4:36 PM DISTANCE LEARNING COORDINATOR [facility] Comment:INFORMATION NOT PROV IDED SOURCE Endocervix 10/26/2017 4:36 PM DISTANCE LEARNING COORDINATOR [facility] ADEQUACY: SEE COMMENT 10/26/2017 4:36 PM DISTANCE LEARNING COORDINATOR [facility] Comment: Satisfactory for evaluation. Endocervical/transformation zone component present. Age and/or menstrual status not provided PAP INTERP SEE COMMENT 10/26/2017 4:36 PM DISTANCE LEARNING COORDINATOR [facility] Comment:Negative for intraep ithelial lesion or malignancy. COMMENT SEE COMMENT 10/26/2017 4:36 PM DISTANCE LEARNING COORDINATOR [facility] Comment: This Pap test has been evaluated with computer assisted technology. CLOTH BEAMER: SEE COMMENT 2017 4:36 PM DISTANCE LEARNING COORDINATOR [facility] Comment: BES, CT(ASCP) CT screening location: [place] [address] Administration [place]ain [address] Genital SWAB OF ENDOCERVIX / Unknown Collection / Unknown 10/21/2017 11:52 AM DISTANCE LEARNING COORDINATOR 10/22/2017 7:47 AM DISTANCE LEARNING COORDINATOR Narrative [facility] - 10/26/2017 4:36 PM DISTANCE LEARNING COORDINATOR Performing Organization Information: Site ID: Name: [facility] Address: [facility] Administration [place] [address] Director: Lino Rosas MD Toshia Rajan MD PATHOLOGY/CYTOLOGY ORDERAB LES Final Result Performing Organization Address City/State/[facility] Co de Phone Number [facility] from Last 3 Months or Most Recently Relevant to Health Maintenance Insurance [facility] [employer] MEDICAID [place] Advance Directives For more information, please contact: [phone] * Full Code (Latest Code Status on [...] 11:38 AM 06/07/2013 4:40 PM Care Teams Economic Adviser Relationship Specialty Start Date End Date Tamiko Christensen MD [address] [place] [phone] PCP - General Family Practice 05/14/17
--- OUTSIDE RECORDS SUMMARY | 2025-08-14 19:10 | XMS_ITS | Encounter Summary ---
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 Gender Identity Not on file Sexual Orientation Not on file documented as of this encounter Plan of Treatment Not on file documented as of this encounter Visit Diagnoses Diagnosis Family history of congenital anomalies documented in this encounter Additional Health Concerns Infection Onset Date Last Indicated Resolved Time MRSA Comment:RESOLVED 07/15/2010 07/15/2010 08/11/2011 12:23 PM COMMERCIAL CARPENTER documented as of this encounter Care Teams Telesales Consultant Relationship Specialty Start Date End Date Tamiko Christensen MD [address] [place] [phone] PCP - General Family Practice 05/14/17 documented as of this encounter
--- OUTSIDE RECORDS SUMMARY | 2025-08-14 19:10 | XMS_ITS | Clinical Summary ---
Author Organization [facility] Address [address] Angulo: Epic Prelude ADT J[place] [address] Care Team Providers Care Windows Desktop Support Name Role Phone Kentrell Ann MD Primary Care Provider [phone] Allergies Active Allergy Reactions Criticality Noted Date [...] Breath. Active fluticasone propionate (FLONASE) 50 mcg/spray [place], Suspension nasal inhalerIndicati ons:Environment al allergies Administer 2 Sprays in each nostril 2 times daily. 16 Gram 11 07/15/20 Active vitamin A 10,000 unit capsuleIndicati ons:Vitamin A deficiency Take 1 Capsule (10,000 Units) by mouth daily. 100 Capsule 3 10/25/20 24 Active ketoconazole (NIZORAL) 2 % Shampoo [...] 01/06/20 25 Active naloxone (Narcan) 4 mg/spray [place], Non-Aerosol as directed intranasally once 05/01/20 22 [...] mouth 2 times daily. 03/28/20 25 Active iquhocqc-vcn-oa jh-xwojexqi-Y4 (Bariatric Multivitamins) 45 mg iron-800 mcg DFE-120 [...] D2, 1,250-135 unit Capsule Vitamin A Active obsd-ZN-caz-epa -DAQ-FCXM-ne-mv 1.5 mg iron- 8.73 mg capsule,IR & delay rel,biphase Iron Active fqfbvyvt-rvk-ag aq-plagcvce-E0 (Bariatric Multivitamins) 45 mg iron-800 mcg DFE-120 [...] Encounters Date Type Department Care Team Description 08/01/2025 External Device Data [facility] ABSTRACTION Provider, Abstract 07/25/2025 External Device Data [facility] ABSTRACTION Provider, Abstract 07/25/2025 External Device Data [facility] ABSTRACTION Provider, Abstract 07/19/2025 External Device Data STL ABSTRACTION Provider, Abstract 07/19/2025 External Device Data [facility] ABSTRACTION Provider, Abstract 07/18/[address] [place] [phone] Kentrell Ann MD Environmental allergies 07/05/2025 Results Follow-Up [address] [place] [address] Satanm, Crystal Fanny, CASE REVIEWER MRI LUMBAR WO CONTRAST 07/05/2025 Orders Only [address] [place] [address] Satnam, Crystal Fanny, CASE REVIEWER Acute midline low back pain without sciatica 06/28/2025 Orders Only [facility] [address] [place] [phone] Provider, Abstract 06/27/2025 Orders Only [facility] [place] [address] [place] [phone] Aristeo Mahmood MD Special screening for malignant neoplasms, colon (Primary Dx) 06/20/2025 External Device Data [facility] ABSTRACTION Provider, Abstract 06/20/2025 External Device Data [facility] ABSTRACTION Provider, Abstract 06/13/2025 10:40 AM CDT Video Visit [address] [place] [address] Satnam, Crystal Fanny, CASE REVIEWER Acute midline low back pain without sciatica (Primary Dx) 06/08/2025 8:20 AM CDT Office Visit [address] [place] [address] Satnam, Crystal Fanny, CASE REVIEWER Acute midline low back pain without sciatica [...] the great vessels; lived 6h. born in [place], [place]. High Cholesterol Sister 1 Unknown Sister [...] often do you attend chur ch or gnosticism services? 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 Gender Identity Not on file Sexual [...] COLON, SCREENING Routine 06/20/2025 3:08 PM CDT HEMOGLOBIN A1C Routine 03/14/2025 1:21 PM CDT Hypoglycemia CERV/VAG CYTO SCREEN PAP RLFX HPV Routine 10/21/2017 11:52 AM QUICK PRINT OPERATOR from Last 3 Months or Most Recently Relevant to Health Maintenance Results * MRI LUMBAR WO CONTRAST (07/04/2025) Anatomical Region Laterality Modality Spine Magnetic Resonan ce Elisa Hay CASE REVIEWER MR ORDERABLES Final Re sult * ENDOSCOPY, COLON, SCREENING (06/20/2025 3:08 PM CDT) us Abstract Provider GI PROCEDURE ORDERABLES Final Result * HEMOGLOBIN A1C (03/14/2025 1:21 PM CDT) HEMOGLOBIN A1C 5.2 <5.7 % [facility] Comment: For the purpose of screening for the presence of diabetes: <5.7% Consistent with the absence of diabetes 5.7-6.4% Consistent with increased risk for diabetes (prediabetes) > or =6.5% Consistent with diabetes This assay result is consistent with a decreased risk of diabetes. Currently, no consensus exists regarding use of hemoglobin A1c for diagnosis of diabetes in children. According to [place] Diabetes Association (ADA) guidelines, hemoglobin A1c <7.0% represents optimal control in non- diabetic patients. Different metrics may apply to specific patient populations. Standards of Medical Care in Diabetes(ADA). ESTIMATED AVERAGE GLUCOSE (MG/DL) 103 mg/dL [facility] ESTIMATED AVERAGE GLUCOSE (MMOL/L) 5.7 mmol/L [facility] Comment: Test Performed at: [facility] [employer] [facility] [address] [place] [address] Lino Rosas MD Blood 03/14/2025 1:21 PM CDT 03/15/2025 2:51 AM CDT Rashmi Wu CASE REVIEWER CHEMISTRY ORDERABLES Fin al Result [facility] [phone] [facility] [address] [place] [address] * CERV/VAG CYTO SCREEN PAP RLFX HPV (10/21/2017 11:52 AM QUICK PRINT OPERATOR) CLINICAL INFORMATION SEE COMMENT 10/26/2017 4:36 PM QUICK PRINT OPERATOR [facility] Comment:Information not prov ided LAST MENSTRUAL PERIOD SEE COMMENT 10/26/2017 4:36 PM QUICK PRINT OPERATOR [facility] Comment:INFORMATION NOT PROV IDED PREV PAP: SEE COMMENT 10/26/2017 4:36 PM QUICK PRINT OPERATOR [facility] Comment:INFORMATION NOT PROV IDED PREV BX: SEE COMMENT 10/26/2017 4:36 PM QUICK PRINT OPERATOR [facility] Comment:INFORMATION NOT PROV IDED SOURCE Endocervix 10/26/2017 4:36 PM QUICK PRINT OPERATOR [facility] ADEQUACY: SEE COMMENT 10/26/2017 4:36 PM QUICK PRINT OPERATOR [facility] Comment: Satisfactory for evaluation. Endocervical/transformation zone component present. Age and/or menstrual status not provided PAP INTERP SEE COMMENT 10/26/2017 4:36 PM QUICK PRINT OPERATOR [facility] Comment:Negative for intraep ithelial lesion or malignancy. COMMENT SEE COMMENT 10/26/2017 4:36 PM QUICK PRINT OPERATOR [facility] Comment: This Pap test has been evaluated with computer assisted technology. NEONATAL SURGEON: SEE COMMENT 2017 4:36 PM QUICK PRINT OPERATOR [facility] Comment: BES, CT(ASCP) CT screening location: [place] [address] Administration JAS[place] Jain [address] Genital SWAB OF ENDOCERVIX / Unknown Collection / Unknown 10/21/2017 11:52 AM QUICK PRINT OPERATOR 10/23/2017 8:49 AM QUICK PRINT OPERATOR Narrative [facility] - 10/26/2017 4:36 PM QUICK PRINT OPERATOR Performing Organization Information: Site ID: Name: [facility] Address: [address] [address] [place] [address] Director: Lino Rosas MD us Toshia Rajan MD PATHOLOGY/CYTOLOGY ORDERAB LES Final Result [facility] from Last 3 Months or Most Recently Relevant to Health Maintenance Insurance MEDICAID [place] Care Teams Windows Desktop Support Relationship Specialty Start Date End Date Kentrell Ann MD [address] [address] PCP - General Family Practice 11/30/23
--- OUTSIDE RECORDS SUMMARY | 2025-08-14 19:10 | XMS_ITS | Encounter Summary ---
Author Organization [facility] Address [address] [place] [address] Care Team Providers Care Customer Support Advisor Name Role Phone Tamiko Christensen MD Primary Care Provid er Reason for Referral * Outpatient Services (Routine) - Closed Specialty Diagnoses / Procedures Referred By Kale richardson Referred To Contact Perinatology Diagnoses At risk for gestational diabetes mellitus History of delivery, currently in second trimester Procedures OB TRANSVAGINAL Toshia Rajan MD Phone: tel: fax: [facility] and Medicine[address] [place] [address] Phone: tel: fax: Referral ID Status Reason Start Date Expiration Date Visits Requested Visits Authorized [id number] Closed Ordering Department To Schedule 01/18/2018 02/18/2019 1 1 Encounter Details Date Type Department Care Team (Late st Contact Info) Description 01/18/2018 Ancillary Orders [facility] OBGYN-[address] [place] [address] Toshia Rajan MD [address] [facility], [facility] [address] [place] [address] At risk for gestational diabetes [...] on file 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
--- OUTSIDE RECORDS SUMMARY | 2025-08-14 19:10 | XMS_ITS | Encounter Summary ---
Author Organization [facility] Address [address] [place] [address] Care Team Providers Care Manager Instrumentation Name Role Phone Tamiko Christensen MD Primary [...] FETUSES Toshia Rajan MD Phone: tel: fax: [facility] Medicine[address] [place] [address] Phone: tel: fax: Referral ID Status Reason Start Date Expiration Date Visits Requested Visits Authorized [id number] Closed Ordering Department To Schedule 04/09/2018 05/10/2019 [...] FETUSES Toshia Rajan MD Phone: tel: fax: [facility] Maternal and [address] [address] Phone: tel: fax: Referral ID Status Reason Start Date Expiration Date Visits Requested Visits Authorized [id number] Closed Ordering Department To Schedule 04/09/2018 05/10/2019 [...] FETUSES Toshia Rajan MD Phone: tel: fax: [facility] and [address] [address] Phone: tel: fax: Referral ID Status Reason Start Date Expiration Date Visits Requested Visits Authorized [id number] Closed Ordering Department To Schedule 04/09/2018 05/10/2019 [...] FETUSES Toshia Rajan MD Phone: tel: fax: [facility] [address] [address] Phone: tel: fax: Referral ID Status Reason Start Date Expiration Date Visits Requested Visits Authorized [id number] Closed Ordering Department To Schedule 04/09/2018 05/10/2019 1 1 * Outpatient Services (Routine) - Closed Specialty Diagnoses / Procedures Referred By Contac t Referred To Contact Perinatology Diagnoses HTN (hypertension), benign Diet controlled gestational diabetes mellitus (GDM) in third trimester Asthma, unspecified asthma severity, unspecified whether complicated, unspecified whether persistent Procedures US OB FOLLOW UP PER FETUS Toshia Rajan MD Phone: tel: fax: [facility] [place] [address] Phone: tel: fax: Referral ID Status Reason Start Date Expiration Date Visits Requested Visits Authorized [id number] Closed Ordering Department To Schedule 04/09/2018 05/10/2019 1 1 Encounter Details Date Type Department Care Team (Late st Contact Info) Description 04/09/2018 Ancillary Orders [facility] OBGYN[address] [place] [address] Toshia Rajan MD [address] 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 Name: SANDRA PRESCOTT Study Date: 05/17/2018 10:50am Pat. NO: [id number] Referring MD: TOSHIA RAJAN Site: [facility] Diver Pumper: Marlys Jones : 1985 Age: 32 INDICATION Other Condition Dx: HTN (hypertension), benign [I10 (ICD-10-CM)]; Diet controlled gestational diabetes mellitus (GDM) in third trimester [O24.410 (ICD-10-CM)]; Asthma, unspecified asthma severity, unspecified whether complicated, unspecified whether persistent [J45.909 (ICD-10-CM)] CODING Diagnosis XXX.10: Other condition Z3A.37: Weeks Gestation of Procedures [address]3879: Limited OB Ultrasound HISTORY OB History 3. [...] Note Jakob Galeana II, MD - 05/17/2018 [facility] Pat. Name:BASIL PRESCOTTAna Maria Date:05/17/2018 10:50am Pat. NO: [id number] MD:TOSHIA RAJAN Site:[facility]onographer:Marlys Jones :1985Age:32 INDICATION Other Condition Dx: HTN (hypertension), benign [I10 (ICD-10-CM)]; Diet controlled gestational diabetes mellitus (GDM) in third trimester [O24.410 (ICD-10-CM)]; Asthma, unspecified asthma severity, unspecified whether complicated, unspecified whether persistent [J45.909 (ICD-10-CM)] CODING Diagnosis XXX.10: Other condition Z3A.37: Weeks Gestation of Procedures [address]5675: Limited OB Ultrasound HISTORY OB History 3. [...] biophysical profile Narrative 05/10/2018 3:07 PM T [facility] Follow Up Pat. Name: SANDRA PRESCOTT Study Date: 05/10/2018 10:18am Pat. NO: [id number] Referring MD: TOSHIA RAJAN Site: [facility] Diver Pumper: Francy Ross : 1985 Age: 32 INDICATION Maternal Hypertension, Chronic Diabetes - Gestational (unspecified) Maternal Asthma CODING Diagnosis O10.013: Pre-existing essential hypertension complicating O24.419: Gestational diabetes mellitus in , unspecified control O99.513: Diseases of the respiratory system complicating Z3A.36: Weeks Gestation of Procedures 80196: OB US Follow-up HISTORY OB History 3. [...] 7 lb 1 oz EFW by Hadlock (ERO-HE-VJ-FL) Head / Face / Neck Biometry: Cephalic [...] Note Jakob Galeana II, MD - 05/10/2018 [facility] Follow Up Pat. Name:Stephan PRESCOTT Date:05/10/2018 10:18am Pat. NO: [id number] MD:TOSHIA RAJAN [facility] :1985Age:32 INDICATION Maternal Hypertension, Chronic Diabetes - Gestational (unspecified) Maternal Asthma CODING Diagnosis O10.013: Pre-existing essential hypertension complicating O24.419: Gestational diabetes mellitus in , unspecified control O99.513: Diseases of the respiratory system complicating Z3A.36: Weeks Gestation of Procedures 06659: OB US Follow-up HISTORY OB History 3. [...] 7 lb 1 oz EFW by Hadlock (FFR-GR-VA-FL) Head / Face / Neck Biometry: Cephalic [...] biophysical profile Narrative 05/03/2018 4:49 PM CDT [facility] Pat. Name: SANDRA PRESCOTT Study Date: 05/03/2018 1:56pm Pat. NO: [id number] Referring MD: TOSHIA RAJAN Site: [facility] Diver Pumper: Marlys Jones : 1985 Age: 32 INDICATION Other Condition Dx: HTN (hypertension), benign [I10 (ICD-10-CM)]; Diet controlled gestational diabetes mellitus (GDM) in third trimester [O24.410 (ICD-10-CM)]; Asthma, unspecified asthma severity, unspecified whether complicated, unspecified whether persistent [J45.909 (ICD-10-CM)] CODING Diagnosis XXX.10: Other condition Z3A.35: Weeks Gestation of Procedures 62768: Limited OB Ultrasound HISTORY OB History 3. [...] Kervin URIBE, Jakob Ornelas MD - 05/03/2018 [facility] Pat. Name:Stephan PRESCOTT Date:05/03/2018 1:56pm Pat. NO: [id number] :TOSHIA CUELLARBONS [facility] :1985Age:32 INDICATION Other Condition Dx: HTN (hypertension), benign [I10 (ICD-10-CM)]; Diet controlled gestational diabetes mellitus (GDM) in third trimester [O24.410 (ICD-10-CM)]; Asthma, unspecified asthma severity, unspecified whether complicated, unspecified whether persistent [J45.909 (ICD-10-CM)] CODING Diagnosis XXX.10: Other condition Z3A.35: Weeks Gestation of Procedures 62374: Limited OB Ultrasound HISTORY OB History 3. [...] biophysical profile Narrative 04/26/2018 5:03 PM CDT [facility] Pat. Name: SANDRA PRESCOTT Study Date: 04/26/2018 11:02am Pat. NO: [id number] Referring MD: TOSHIA RAJAN Site: [facility] Diver Pumper: Marlys Jones : 1985 Age: 32 INDICATION Other Condition Dx: HTN (hypertension), benign [I10 (ICD-10-CM)]; Diet controlled gestational diabetes mellitus (GDM) in third trimester [O24.410 (ICD-10-CM)]; CODING Diagnosis XXX.10: Other condition Z3A.34: Weeks Gestation of Procedures [address]2395: Limited OB Ultrasound HISTORY OB History 3. [...] Q4 0.0 cm Procedure Note Kervin URIBE, aJkob Ornelas MD - 04/26/2018 [facility] Pat. Name:SANDRA PRESCOTTZan Date:04/26/2018 11:02am Pat. NO: [id number] MD:TOSHIA RAJAN [facility]onographer:Marlys Jones :1985Age:32 INDICATION Other Condition Dx: HTN (hypertension), benign [I10 (ICD-10-CM)]; Diet controlled gestational diabetes mellitus (GDM) in third trimester [O24.410 (ICD-10-CM)]; CODING Diagnosis XXX.10: Other condition Z3A.34: Weeks Gestation of Procedures [address]3077: Limited OB Ultrasound HISTORY OB History 3. [...] biophysical profile Narrative 04/19/2018 4:25 PM CDT [facility] Pat. Name: SANDRA PRESCOTT Study Date: 04/19/2018 11:51am Pat. NO: [id number] Referring MD: TOSHIA RAJAN Site: [facility] Diver Pumper: Marlys Jones : 1985 Age: 32 INDICATION Diabetes - Gestational (insulin) CODING Diagnosis O24.414: Gestational diabetes mellitus in , insulin controlled Z3A.33: Weeks Gestation of Procedures 36015: Limited OB Ultrasound HISTORY OB History 3. [...] Note Jakob Galeana II, MD - 04/19/2018 [facility] Name:Stephan PRESCOTT Date:04/19/2018 11:51am Pat. NO: [id number] MD:TOSHIA RAJAN [facility] :1985Age:32 INDICATION Diabetes - Gestational (insulin) CODING Diagnosis O24.414: Gestational diabetes mellitus in , insulin controlled Z3A.33: Weeks Gestation of Procedures 22033: Limited OB Ultrasound HISTORY OB History 3. [...] persistent documented in this encounter Care Teams Manager Instrumentation Relationship Specialty Start Date End Date Tamiko Christensen MD [address] [phone] PCP - General Family Practice 05/14/17 documented as of this encounter
--- OUTSIDE RECORDS SUMMARY | 2025-08-14 19:10 | XMS_ITS | Encounter Summary ---
Author Organization [facility] Address [address] [place] [address] Care Team Providers Care Diversional Therapist'S Assistant Name Role Phone Kentrell Ann MD Primary Care Provider [phone] Encounter Details Date Type Department Care Team (Latest Contact Info) Description 10/07/2024 Results Follow-Up [facility] Cinthia Garcia [place] [address] [place] [address] Efrain Quinn DO [address] [place] [address] ESTRADIOL, HCG QUANTITATIVE, BLOOD, PROGESTERONE [...] often do you attend chur ch or sikh services? 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 Her estrogen is in the normal range. Her HCG and progesterone are very low, which indicates the beginning of a menstrual cycle and nocurrent . ROL ROOM AGENT documented in this encounter Plan of Treatment Not on file documented as of this encounter Visit Diagnoses Not on filedocumented in this encounter Care Teams Diversional Therapist'S Assistant Relationship Specialty Start Date End Date Ketnrell Ann MD [address] [phone] PCP - General Family Practice 11/30/23 documented as of this encounter
--- NOTE | 2025-08-14 19:12 | W.ED.ABDPA2 ---
HPI - Abdominal Pain General: Chief Complaint: Abdominal Pain Stated Complaint: LLQ pain - vaginal bleeding x2 weeks Time Seen by Provider: 08/14/25 19:03 History of Present Illness: Patient is a 39-year-old female with history of epilepsy, iron deficiency anemia, history of gastric bypass 2012, presents to the emergency room due to menorrhalgia. Patient states increased amount of bleeding, with clotting today, and suprapubic pain. She describes a round clot approximately 3 cm. She cannot define the amount of pads that she has used, and states that she uses a cloth pad. She has never had a history of dysmenorrhea. Denies . States compliance to her iron intake. She has not seen primary care or TALENT ADVISOR. Denies lightheadedness, dizziness, palpitations. She rates her pain in her suprapubic area as a 7. Associated Symptoms: Denies chills, fever(s), nausea and vomiting Related Data Date of Last Menstrual Period: 07/31/25 Home Medications ?Medication ?Instructions ?Recorded ?Confirmed fluticasone propionate 50 2 spray intranasal BID 09/20/19 08/03/25 mcg/actuation nasal spray,suspension (Allergy Relief (fluticasone)) calcium 250 mg-D3 500 unit-vit K 1 tab PO BID 04/04/24 08/03/25 25 hpt-hoivyxwiu-lhdrqq-borate tablet acetaminophen 300 mg-codeine 60 mg 1 tab PO DAILY PRN Pain 12/06/24 08/03/25 tablet cyclobenzaprine 5 mg tablet 5 mg PO DAILY PRN Spasms 12/06/24 08/03/25 ferrous sulfate 325 mg (65 mg 325 mg PO DAILY 04/16/25 08/03/25 iron) tablet gabapentin 300 mg capsule 300 mg PO BID 04/16/25 08/03/25 ketoconazole 2 % shampoo 1 applic topical Q14D PRN Skin 04/16/25 08/03/25 Irritation naloxone 4 mg/actuation nasal See Rx Instructions .Route .COMPLEX 04/16/25 08/03/25 spray (Narcan) vitamin A 3,000 mcg (10,000 unit) 3,000 mcg PO DAILY 04/16/25 08/03/25 capsule qbdmxjwt-jslzipmw-wzvo 45 mg-folic 1 cap PO DAILY 05/10/25 08/03/25 acid 800 mcg-vit K 120 mcg capsule (Bariatric Multivitamins) Previous Rx's ?Medication ?Instructions ?Recorded cetirizine 10 mg tablet (Zyrtec) 10 mg PO DAILY #30 tabs 11/30/19 fluticasone propionate 220 2 puff inhalation BID #12 grams 12/26/19 mcg/actuation HFA aerosol inhaler (Flovent HFA) left and right hinged knee brace #1 ea 02/14/25 tizanidine 4 mg tablet 4 mg PO Q6H PRN muscle spasticity 04/19/25 #20 tabs albuterol sulfate 90 mcg/actuation 2 puff inhalation Q6H PRN 05/10/25 aerosol inhaler (Ventolin HFA) shortness of breath or wheezing #8.5 grams triamcinolone acetonide 0.5 % 1 applic topical BID 7 days #15 05/10/25 topical cream grams hydroxyzine HCl 50 mg tablet 50 mg PO BID PRN anxiety #60 tabs 05/23/25 Cock up wrist splint #1 ea 07/04/25 divalproex 250 mg tablet,extended See Rx Instructions .Route 07/13/25 release 24 hr .COMPLEX #90 tabs buspirone 15 mg tablet 15 mg PO BID #60 tabs 07/21/25 tranexamic acid 650 mg tablet 1,300 mg (2 x 650 mg) PO TID 5 08/14/25 days #30 tabs Allergies Allergy/AdvReac Type Severity Reaction Status Date / Time aspartame Allergy Severe Headache Verified 08/14/25 19:10 egg Allergy Mild Unknown Verified 08/14/25 19:10 aspirin Allergy ADR/ALGY-Hy Verified 08/14/25 19:10 potension [place] Allergy runny nose Verified 08/14/25 19:10 imipramine Allergy Rash Verified 08/14/25 19:10 milk Allergy bloating Verified 08/14/25 19:10 NSAIDS (Non-Steroidal Allergy Unknown Verified 08/14/25 19:10 Anti-Inflamma Sunblock Allergy Unknown Uncoded 08/14/25 19:10 Review of Systems General: Reports: 10 or more systems reviewed and unremarkable except in HPI and below Const: Denies: fever(s), chills or body aches Eyes: Denies: change in vision or blurry vision Card: Denies: chest pain or palpitations Resp: Denies: dyspnea GI: Reports: abdominal pain; Denies: nausea or vomiting : Denies: flank pain, difficulty voiding or urinary frequency Musc: Denies: neck pain or back pain Neuro: Denies: headache(s) or numbness in extremities Psych: Denies: anxiety or depression PFSH ED PFSH: Medical History (Updated 08/14/25 @ 20:25 by DEYA Ewing) MDD (major depressive disorder), recurrent, in partial remission FH: thyroid disease FH: colon cancer in relative <50 years old Grandfather at age 40 colon cancer , 01/2023 EGD small Hiatal hernia and polyp's removed, no colonoscopy yet Weight loss, intentional 11/21/2022 274 lbs, 10/07/2023 251 lbs History of prediabetes last A1c 5.4 in 2022 BMI 40.0-44.9, adult Major depressive disorder, recurrent, moderate Psychiatric care Ventral hernia Blood type O- Obesity Generalized anxiety disorder Post-traumatic stress disorder, chronic Migraine without aura Asthma Fibromyalgia Surgical History History of hernia repair (~08/2020) History of cholecystectomy 2016 History of bilateral breast reduction surgery (2007) 2007 breast reduction History of abdominoplasty (2012) 2013 Pannus removal, karen peña @ [facility] Family History Mother Hypertension Diabetes Graves disease Grandmother Stroke Maternal Diabetes Paternal Father Hypercholesterolemia Grandfather Cancer Maternal Grandfather: Mesothelioma Grandfather Colon cancer Paternal---dx age unknown Denies family history of Ovarian cancer Heart disease Breast cancer Uterine cancer Social History Smoking and tobacco/nicotine status: never used tobacco/nicotine Alcohol intake: former Year of sobriety/quit date alcohol: 2010 Substance/Drug Use: never Additional social history: Well-balanced diet No substance abuse. 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 Sexually active: Yes Do you think of yourself as: Straight/Heterosexual Current gender identity: Female Susan/Yarsani: Religion Special susan needs: No Agree to transfusion: Yes Female Reproductive History: Date of last menstrual period: 07/31/25 Para: 5 Physical Exam Const: COMMON NORMALS: no acute distress, average body habitus and patient oriented x3 HENMT: COMMON NORMALS: normocephalic and atraumatic HEAD & SCALP: normocephalic and atraumatic Neck/C-Spine: COMMON NORMALS: full ROM, no lymphadenopathy, supple and no meningeal signs Lymph: LYMPHATIC: no lymphadenopathy noted Chest: COMMONS NORMALS: normal inspection of the chest and normal palpation of entire chest wall Resp: COMMON NORMALS: normal respiratory effort, No retractions and clear to auscultation bilaterally AUSCULTATION: clear to auscultation bilaterally Cardio: COMMON NORMALS: regular rate and regular rhythm RATE: regular rate RHYTHM: regular rhythm GI: COMMON NORMALS: Normal to inspection, nondistended, normoactive bowel sounds present, Soft to palpation and No hepatosplenomegaly present PALPATION: Yes Soft to palpation, Yes Tenderness to palpation present (GI) (Minimal tenderness suprapubic otherwise negative) and Yes No hepatosplenomegaly present : COMMON NORMALS: Yes no CVA tenderness BLADDER/KIDNEY EXAM: Yes no CVA tenderness Back/Pelvis: COMMON NORMALS: no CVA tenderness and thoracic and lumbar spine normal to inspection Extremity: COMMON NORMALS: normal to inspection, full ROM and capillary refill normal Neuro: COMMON NORMALS: patient oriented x3 MENINGEAL SIGNS: Yes no meningeal signs Psych: COMMON NORMALS: mental status grossly normal, Normal thought process present, cooperative, normal affect and speech normal SPEECH: Yes normal speech THOUGHT PROCESS: Normal thought process present Course Reevaluation(s): Reevaluation #1: Improved. Vital Signs: Vital signs: Vital Signs Temperature 98.7 F 08/14/25 19:02 Pulse Rate 77 08/14/25 20:28 Respiratory Rate 16 08/14/25 20:28 Blood Pressure 172/143 08/14/25 20:28 Pulse Oximetry 98 08/14/25 20:28 Oxygen Delivery Me thod Room Air 08/14/25 19:29 MDM - Abdominal Pain Medical Decision Making 39-year-old female with menorrhalgia x 2 weeks, worsening in nature. Utilizes reusable pads, and cannot define how many she has went through. She has some small clotting today. Given the amount of time that this is taken, we will plan on CBC, CMP to assess electrolytes and hemoglobin/WBC. If this is stable, we will treat pain, and defer to director park with outpatient TXA. Patient is due to see gynecology, Dr. Lantigua on 08/25. Since her hemoglobin is 12.2, she does not have significant concerns on exam, no tachycardia, vital signs are stable, any additional workup can be deferred to outpatient basis/TALENT ADVISOR. To control her menorrhagia, will give TXA as per label. Explained to patient. Low-dose Toradol given with noting previous gastric bypass, and Norflex given IM x 1 for pain control. Medical Records I reviewed the patient's medical records. Lab Data I reviewed the patient's lab results. 08/14/25 19:18 08/14/25 19:18 Labs/Radiology: Laboratory Results WBC 7.14 10^3/uL (3.29-11.43) 08/14/25 19:18 RBC 4.01 10^6/uL (3.85-5.65) 08/14/25 19:18 Hgb 12.20 g/dL (11.27-16.99) 08/14/25 19:18 Hct 37.3 % (36-47) 08/14/25 19:18 MCV 93.0 fl (85-98) 08/14/25 19:18 MCH 30.4 pg (27-33) 08/14/25 19:18 MCHC 32.7 g/dL (30-55) 08/14/25 19:18 RDW 13.5 % (12.1-15.1) 08/14/25 19:18 Plt Count 200 10^3/cmm (157-399) 08/14/25 19:18 MPV 11.3 fL (7.4-10.4) H 08/14/25 19:18 Neut % (Auto) 63.2 % 08/14/25 19:18 Lymph % (Auto) 26.3 % 08/14/25 19:18 [place] % (Auto) 8.7 % 08/14/25 19:18 Eos % (Auto) 0.8 % 08/14/25 19:18 Baso % (Auto) 0.6 % 08/14/25 19:18 Neut # (Auto) 4.51 10^3/uL (1.8-7.7) 08/14/25 19:18 Lymph # (Auto) 1.9 10^3/uL (0.8-4.8) 08/14/25 19:18 [place] # (Auto) 0.6 10^3/uL (0.2-0.9) 08/14/25 19:18 Eos # (Auto) 0.1 10^3/uL (0.0-0.8) 08/14/25 19:18 Baso # (Auto) 0.0 10^3/uL (0.0-0.1) 08/14/25 19:18 Nucleated RBC % (auto) 0 % 08/14/25 19:18 Nucleated RBCs # 0.0 /100WBC 08/14/25 19:18 Sodium 140 mmol/L (136-145) 08/14/25 19:18 Potassium 4.4 mmol/L (3.5-5.1) 08/14/25 19:18 Chloride 105 mmol/L (98-107) 08/14/25 19:18 Carbon Dioxide 28 mmol/L (22-29) 08/14/25 19:18 Anion Gap 11.4 (5-19) 08/14/25 19:18 BUN 13 mg/dL (6-20) 08/14/25 19:18 Creatinine 0.8 mg/dL (0.5-0.9) 08/14/25 19:18 GFR Calculation 79.0 mL/min (90-130) L 08/14/25 19:18 Glucose 107 mg/dL (65-115) 08/14/25 19:18 Calculated Osmolality 291 mOsm/kg (285-295) 08/14/25 19:18 Calcium 8.5 mg/dL (8.5-10.5) 08/14/25 19:18 Total Bilirubin 0.5 mg/dL (0.15-1.2) 08/14/25 19:18 AST 21 U/L (0-32) 08/14/25 19:18 ALT 22 U/L (0-33) 08/14/25 19:18 Alkaline Phosphatase 79 U/L (35-105) 08/14/25 19:18 Total Protein 6.0 g/dL (6.6-8.7) L 08/14/25 19:18 Albumin 3.6 g/dL (3.5-5.2) 08/14/25 19:18 Globulin 2.4 g/dL (1.3-4.6) 08/14/25 19:18 HCG, Qual Negative (Negative) 08/14/25 19:18 Urine Color Yellow (Yellow) 08/14/25 19:34 Urine Appearance Clear (CLEAR) 08/14/25 19:34 Urine pH 6.0 (5-7) 08/14/25 19:34 Ur Specific [place] 1.023 (1.005-1.030) 08/14/25 19:34 Urine Protein Negative (Negative) 08/14/25 19:34 Urine Glucose (UA) Negative (Normal) 08/14/25 19:34 Urine Ketones Trace (Negative) 08/14/25 19:34 Urine Blood Negative (Negative) 08/14/25 19:34 Urine Nitrate Negative (Negative) 08/14/25 19:34 Urine Bilirubin Negative (Negative) 08/14/25 19:34 Urine Urobilinogen 1.0 mg/dL (Negative) 08/14/25 19:34 Ur Leukocyte Esterase Negative (Negative) 08/14/25 19:34 Urine RBC 0-2 /hpf (0-2) 08/14/25 19:34 Urine WBC 0-5 /hpf (0-5) 08/14/25 19:34 Ur Squamous Epith Cells 0-5 /hpf (0-5) 08/14/25 19:34 Amorphous Sediment Not Reportable 08/14/25 19:34 Urine Bacteria None seen /hpf (NONE) 08/14/25 19:34 Hyaline Casts 0.40 /lpf 08/14/25 19:34 No radiology studies performed this visit Discharge Plan Discharge Patient Disposition: Home Clinical Impression: Menorrhagia Qualifiers: Menorrhagia type: with regular cycle Qualified Code(s): N92.0 - Excessive and frequent menstruation with regular cycle Condition: Stable Prescriptions: New tranexamic acid 650 mg tablet 1,300 mg PO TID 5 Days Qty: 30 0RF No Action cetirizine [Zyrtec] 10 mg tablet 10 mg PO DAILY Qty: 30 2RF fluticasone propionate [Allergy Relief (fluticasone)] 50 mcg/actuation spray,suspension 2 spray INTRANASAL BID Ca Cld-Z2-F-Eojj-frqjd-bpc bor 250 mg calcium -500 unit tablet 1 tab PO BID acetaminophen-codeine 300-60 mg tablet 1 tab PO DAILY PRN (Reason: Pain) cyclobenzaprine 5 mg tablet 5 mg PO DAILY PRN (Reason: Spasms) hydroxyzine HCl 50 mg tablet 50 mg PO BID PRN (Reason: anxiety) Qty: 60 2RF Rx Instructions: Take one tablet twice a day, if needed for anxiety, at least 4 hours apart Bariatric Multivitamins 45 mg iron- 800 mcg-120 mcg capsule 1 cap PO DAILY triamcinolone acetonide 0.5 % cream 1 applic topical BID 7 Days Qty: 15 0RF albuterol sulfate [Ventolin HFA] 90 mcg/actuation HFA aerosol inhaler 2 puff inhalation Q6H PRN (Reason: shortness of breath or wheezing) Qty: 8.5 0RF (DME) Cock up wrist splint See Rx Instructions .Route .MEDSUPPLY Qty: 1 0RF Rx Instructions: As directed (DME) left and right hinged knee brace See Rx Instructions .Route .MEDSUPPLY Qty: 1 0RF Rx Instructions: As directed Flovent HFA 220 mcg/actuation HFA aerosol inhaler 2 puff INHALATION BID Qty: 12 1RF Rx Instructions: In Cailin Friend absence's divalproex 250 mg tablet extended release 24 hr See Rx Instructions .ROUTE .COMPLEX Qty: 90 3RF Dose Instruction: TAKE 4 TABLETS BY MOUTH EVERY EVENING Rx Instructions: TAKE 4 TABLETS BY MOUTH EVERY EVENING buspirone 15 mg tablet 15 mg PO BID Qty: 60 2RF Rx Instructions: Take one tablet twice daily; stop 10 mg dose vitamin A 3,000 mcg (10,000 unit) Capsule 3,000 mcg PO DAILY ferrous sulfate 325 mg (65 mg iron) Tablet 325 mg PO DAILY gabapentin 300 mg capsule 300 mg PO BID naloxone [Narcan] 4 mg/actuation spray,non-aerosol See Rx Instructions .ROUTE .COMPLEX Rx Instructions: CALL 911. Use one full spray in one nostril one time. Repeat every 2-3 minutes as needed if no or minimal response. ketoconazole 2 % shampoo 1 applic topical Q14D PRN (Reason: Skin Irritation) Rx Instructions: Lather into scalp 2-3 times weekly. Allowed to sit on scalp for 5 minutes before rinsing. tizanidine 4 mg tablet 4 mg PO Q6H PRN (Reason: muscle spasticity) Qty: 20 0RF Rx Instructions: do not exceed 3 doses per 24 hrs Discharge Orders: Discharge ED (Routine); Ordered 08/14/25 Ordered By: Kelley Paulino Referrals: Kentrell Ann [Primary Care Provider, Family Practice] Discharge Diet: Usual diet Discharge Activity: Resume usual activity Patient Instructions: Menorrhagia (ED), Patient Portal & Berenice Instructions Activity Restrictions/Additional Instructions: - You received Toradol/ketorolac, and Norflex/orphenadrine while here - Keep your appointment on 08/25 with TALENT ADVISOR. They will look at causes. - Your labs were stable here at 12.2 hemoglobin. - Return to ED: If you have worsening lightheadedness, dizziness, palpitations - Keep an accurate pad count - Drink plenty of fluids and continue your iron - At the pharmacy to help you stop bleeding is TXA also called Tranexamic Acid. You take 2 pills 3 times a day for maximum of 5 days. When you stop menses, stop this medication. - You may continue your medications at home as we discussed. Thank you for choosing [facility] for your healthcare needs today. You have been screened and evaluated and felt safe for discharge. Health conditions do change or evolve sometimes and as such it is important that you follow up with your Primary Doctor to be re checked, 3-5 days is a general good time frame for follow up. You are always welcome to return to the ED for re assessment if your symptoms are worsening or you have new concerns Print Language: Macanese Coding Level of Care Code ED Manager Of Investigations for Jess Gamboa
[2025-08-14 19:29] VITALS: PULSE 76; O2SAT 99
[2025-08-14 19:31] LABS: Hematocrit 37.3 % (36-47); Hemoglobin 12.20 g/dL (11.27-16.99); Mean Corpuscular HGB Conc 32.7 g/dL (30-55); Mean Corpuscular Hemoglobin 30.4 pg (27-33); Mean Corpuscular Volume 93.0 fl (85-98); Nucleated Red Blood Cells % 0 %; Platelet Count 200 10^3/cmm (157-399); Red Blood Count 4.01 10^6/uL (3.85-5.65); White Blood Count 7.14 10^3/uL (3.29-11.43)
[2025-08-14 19:49] LABS: HCG, Serum Qual Negative (Negative)
[2025-08-14 19:51] LABS: Glucose Urine UA Negative (Normal); Nitrate Urine Negative (Negative); Specific Gravity, Urine 1.023 (1.005-1.030)
[2025-08-14 19:52] LABS: Alanine Aminotransferase 22 U/L (0-33); Albumin Level 3.6 g/dL (3.5-5.2); Alkaline Phosphatase 79 U/L (35-105); Anion Gap 11.4 (5-19); Aspartate Amino Transferase 21 U/L (0-32); Blood Urea Nitrogen 13 mg/dL (6-20); Calcium 8.5 mg/dL (8.5-10.5); Carbon Dioxide 28 mmol/L (22-29); Chloride 105 mmol/L (98-107); Globulin 2.4 g/dL (1.3-4.6); Glucose 107 mg/dL (65-115); Osmolality Calculated 291 mOsm/kg (285-295); Potassium 4.4 mmol/L (3.5-5.1); Sodium 140 mmol/L (136-145); Total Protein 6.0 g/dL (6.6-8.7)
[2025-08-14 19:56] LABS: Add Urine Microscopic? YES
[2025-08-14] MEDS: orphenadrine 30 mg/mL Inj 2 mL 60 MG IM (20:19)
[2025-08-14 20:28] VITALS: BP 172/143; PULSE 77; RESP 16; O2SAT 98
== END 2025-08-14 20:27 | disposition home or self-care (01) ==
PROVIDERS: Emergency Medicine; Emergency Provider Physician Assistant; PCP Family Medicine
DX: N92.0 Excessive and frequent menstruation with regular cycle (principal)
CPT/HCPCS: 36415; 80053; 81001; 84703; 85025; 96372; 99284; J1885; J2360

== ENCOUNTER → 2025-08-23 09:35 | Outpatient (BNVA) | payer MEDICAID, SELFPAY ==
[2025-01-23 15:14] VITALS: BP 131/94; BMI 29.6
== END ==
PROVIDERS: PCP Family Medicine; Visit Provider Physician Assistant
DX: M94.261 Chondromalacia, right knee (principal); M94.262 Chondromalacia, left knee; S83.241D Other tear of medial meniscus, current injury, right knee, subsequent encounter; X58.XXXD Exposure to other specified factors, subsequent encounter
CPT/HCPCS: 20610; 99213; J3301; J9999

== ENCOUNTER → 2025-08-25 10:42 | Outpatient (BNVA) | payer MEDICAID, SELFPAY ==
[2025-01-23 15:14] VITALS: BP 131/94; BMI 29.6
== END ==
PROVIDERS: PCP Family Medicine; Visit Provider Obstetrics & Gynecology
DX: Z12.4 Encounter for screening for malignant neoplasm of cervix (principal)
CPT/HCPCS: 87624

== ENCOUNTER → 2025-08-30 13:50 | Outpatient (BNVA) | payer MEDICAID, SELFPAY ==
[2025-01-23 15:14] VITALS: BP 131/94; BMI 29.6
== END ==
PROVIDERS: PCP Family Medicine; Visit Provider Student in an Organized Health Care Education/Training Program
DX: M75.42 Impingement syndrome of left shoulder (principal); M75.41 Impingement syndrome of right shoulder
CPT/HCPCS: 99213

== ENCOUNTER 2025-09-01 06:28 | Day surgery (SDC) | payer MEDICAID, SELFPAY ==
[2025-01-23 15:14] VITALS: BP 131/94; BMI 29.6
[2025-09-01] VITALS (11 sets, daily range): BP systolic 109–151; BP diastolic 69–122; PULSE 63–108; RESP 10–20; TEMP 36.3–36.9; O2SAT 95–100; BMI 34.3
[2025-09-01] MEDS: lidocaine-epi 1% 20 mL INJ INJECTION (07:43)
--- NOTE | 2025-09-01 07:44 | ANES.PREANE2 ---
Pre-Anesthetic Assessment Height/Weight: Height 5 ft 4 in Weight 200 lb Temp Pulse Resp BP Pulse Ox O2 Del Method 97.4 F L 81 18 151/122 98 Room Air 09/01/25 06:55 09/01/25 06:55 09/01/25 06:55 09/01/25 06:55 09/01/25 06:55 09/01/25 06:55 Preop Diagnosis: Lumbar stenosis Operation Date: 09/01/25 08:35 Proposed Procedures p Lumbar Spine Decompression(Not Applicable) - Alexey Astorga, DO Was Beta Thanh taken within 24 hours: N/A Was Clonidine taken within 24 hours: N/A Last intake: Intake Last Liquid Date 08/31/25 Last Liquid Time 23:45 Last Solid Date 08/31/25 Last Solid Time 23:45 Social Alcohol and Tobacco Exam alert, oriented x 3, clear to auscultation bilaterally and regular rate & rhythm Airway Submandibular: within normal limits Cervical ROM: within normal limits Mallampati: Class II Dentition: full Anesthetic Plan ASA status: 3 Anesthesia: General Other: No prior issues with anesthesia NPO since yesterday evening Current smoker Anxiety, depression noted Prior seizures on divalproex. Last seizure was 3 weeks ago. Patient states that when she has them they are very short and calls them drop seizures Prior gastric bypass October 2023 Labs reviewed from 08/10/2025 and acceptable for procedure today Cardiac event monitor in April 2025 showing predominant NSR with no symptomatic arrhythmias Plan for GETA Medications/Allergies Home Medications ?Medication ?Instructions ?Recorded ?Confirmed ?Last Taken ?Type fluticasone propionate 50 2 spray intranasal BID 09/20/19 09/01/25 06/19/25 History mcg/actuation nasal spray,suspension (Allergy Relief (fluticasone)) cetirizine 10 mg tablet (Zyrtec) 10 mg PO DAILY #30 tabs 11/30/19 09/01/25 08/31/25 Rx fluticasone propionate 220 2 puff inhalation BID #12 grams 12/26/19 09/01/25 06/19/25 Rx mcg/actuation HFA aerosol inhaler (Flovent HFA) calcium 250 mg-D3 500 unit-vit K 1 tab PO BID 04/04/24 09/01/25 08/31/25 History 25 dro-gkogwraey-yxbdgj-borate tablet acetaminophen 300 mg-codeine 60 mg 1 tab PO DAILY PRN Pain 12/06/24 09/01/25 08/30/25 History tablet cyclobenzaprine 5 mg tablet 5 mg PO DAILY PRN Spasms 12/06/24 09/01/25 09/01/25 History left and right hinged knee brace #1 ea 02/14/25 09/01/25 06/19/25 Rx ferrous sulfate 325 mg (65 mg 325 mg PO DAILY 04/16/25 09/01/25 08/24/25 History iron) tablet gabapentin 300 mg capsule 300 mg PO BID 04/16/25 09/01/25 08/31/25 History ketoconazole 2 % shampoo 1 applic topical Q14D PRN Skin 04/16/25 09/01/25 08/31/25 History Irritation naloxone 4 mg/actuation nasal 4 mg intranasal PRN PRN ov 04/16/25 09/01/25 Unknown History spray (Narcan) vitamin A 3,000 mcg (10,000 unit) 3,000 mcg PO DAILY 04/16/25 09/01/25 08/31/25 History capsule tizanidine 4 mg tablet 4 mg PO Q6H PRN muscle spasticity 04/19/25 09/01/25 08/17/25 Rx #20 tabs albuterol sulfate 90 mcg/actuation 2 puff inhalation Q6H PRN 05/10/25 09/01/25 06/19/25 Rx aerosol inhaler (Ventolin HFA) shortness of breath or wheezing #8.5 grams vjiggfle-dfnsites-fgrf 45 mg-folic 1 cap PO DAILY 05/10/25 09/01/25 08/30/25 History acid 800 mcg-vit K 120 mcg capsule (Bariatric Multivitamins) triamcinolone acetonide 0.5 % 1 applic topical BID 7 days #15 05/10/25 09/01/25 06/19/25 Rx topical cream grams hydroxyzine HCl 50 mg tablet 50 mg PO BID PRN anxiety #60 tabs 05/23/25 09/01/25 09/01/25 Rx Cock up wrist splint #1 ea 07/04/25 09/01/25 Unknown Rx buspirone 15 mg tablet 15 mg PO BID #60 tabs 07/21/25 09/01/25 08/31/25 Rx tranexamic acid 650 mg tablet 650 mg PO TID 5 days #15 tabs 08/25/25 09/01/25 08/17/25 Rx divalproex 250 mg tablet,extended 250 mg PO QPM 08/31/25 09/01/25 08/30/25 History release 24 hr Allergies Allergy/AdvReac Type Severity Reaction Status Date / Time aspartame Allergy Severe Headache Verified 08/30/25 07:49 egg Allergy Mild Unknown Verified 08/30/25 07:49 aspirin Allergy ADR/ALGY-Hy Verified 08/30/25 07:49 potension [place] Allergy runny nose Verified 08/30/25 07:49 imipramine Allergy Rash Verified 08/30/25 07:49 milk Allergy bloating Verified 08/30/25 07:49 NSAIDS (Non-Steroidal Allergy Unknown Verified 08/30/25 07:49 Anti-Inflamma Sunblock Allergy Unknown Uncoded 08/30/25 07:49 Current Medications Generic Name Dose Route Start Last Admin Trade Name Freq PRN Reason Stop Dose Admin Sodium Chloride 1,000 mls @ 30 mls/hr 09/01/25 06:45 09/01/25 07:07 Sodium Chloride 0.9% IV 09/02/25 06:44 30 mls/hr .Q24H AIDE Administration PFSH Anesthesia Medical History Dysmenorrhea Menorrhagia with irregular cycle MDD (major depressive disorder), recurrent, in partial remission FH: thyroid disease FH: colon cancer in relative <50 years old Grandfather at age 40 colon cancer , 01/2023 EGD small Hiatal hernia and polyp's removed, no colonoscopy yet Weight loss, intentional 11/21/2022 274 lbs, 10/07/2023 251 lbs History of prediabetes last A1c 5.4 in 2022 BMI 40.0-44.9, adult Major depressive disorder, recurrent, moderate Psychiatric care Ventral hernia Blood type O- Obesity Generalized anxiety disorder Post-traumatic stress disorder, chronic Migraine without aura Asthma Fibromyalgia Surgical History History of hernia repair (~08/2020) History of cholecystectomy 2016 History of bilateral breast reduction surgery (2007) 2008 breast reduction History of abdominoplasty (2013) 2013 Pannus removal, karen peña @ [facility] Family History Mother Hypertension Diabetes Graves disease Grandmother Stroke Maternal Diabetes Paternal Father Hypercholesterolemia Grandfather Cancer Maternal Grandfather: Mesothelioma Grandfather Colon cancer Paternal---dx age unknown Denies family history of Ovarian cancer Heart disease Breast cancer Uterine cancer Social History Smoking and tobacco/nicotine status: never used tobacco/nicotine Alcohol intake: former Year of sobriety/quit date alcohol: 2010 Substance/Drug Use: never Additional social history: Well-balanced diet No substance abuse. 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
--- NOTE | 2025-09-01 08:07 | W.PM.OPSUD ---
Surgery/Procedure H&P Update DATE OF PROCEDURE: September 01, 2025 DATE H&P PERFORMED: 08/03/25 H&P UPDATE INFORMATION: I have reviewed H&P completed within last 30 days, I have examined patient prior to procedure and No changes to prior documentation PREOP DIAGNOSIS: Lumbar stenosis PLANNED PROCEDURE: Operation Date: 09/01/25 08:35 Proposed Procedures p Lumbar Spine Decompression(Not Applicable) - Alexey Astorga DO
[2025-09-01 08:08] LABS: OR HCG Qualitative Urine Negative (Negative)
[2025-09-01] MEDS: ceFAZolin 2,000 mg SDV 2000 MG IVP (08:20)
--- NOTE | 2025-09-01 09:13 | XR_ITS ---
WS: [id number] XR lumbar spine 2-3V* [id number] REASON FOR EXAM: OR PICS FINDINGS: Surgical appliance overlying the left L4-L5 disc space. XR/XR lumbar spine 2-3V* [id number] IMPRESSION: Intraoperative lumbar level localization as above.
--- NOTE | 2025-09-01 09:18 | PM.OP ---
Operative Report Date of procedure: September 01, 2025 Pre-op diagnosis: Lumbar stenosis with neurogenic claudication Post-op diagnosis: same Procedure done: L4/5 laminectomy with partial facetectomy Surgeon: Alexey Astorga DO Estimated blood loss (mL): 5 Procedure: L4/5 laminectomy with partial facetectomy Patient is brought to the operative suite. After undergoing anesthesia they are placed in the prone position. All areas of impingement are well padded. Patient is then prepped and draped in the normal sterile fashion. A skin incision is made over the L4/5 level. This is confirmed under c-arm guidance. A series of dilators are passed and the tubular retractor is docked on the L4 lamina. A bovie is used to clear the soft tissue off the lamina and the L 4/5 facet joint. A high speed adore is then used to perform the laminectomy and take down the medial aspect of the L 4/5 facet joint. A kerrison rongeure was then used to take down the remaining lamina and smooth the edge of the laminectomy up to the point where the ligamentum flavum attaches. Attention was then brought to the medial aspect of the facet joint. The remaining medial aspect of the superior and inferior aspect of the facet joint were taken down with the kerrison from the pedicle of L4 to L 5. The facet joint had significant hypertrophy. Attention was then brought to the Ligamentum Flavum. The ligament was taken down from the lamina of L4 to L5 and out medially to the remaining facet joint. The ligament was thick. The dura was then exposed. The dura was in good repair. The L4 nerve was then traced with a curette out the L4/5 foramen and found to be adequately decompressed. The L5 nerve was traced with a curette around the L5 pedicle. The lateral recess was opened with a kerrison helping to further decompress the L5 nerve. Wound is then irrigated copiously with saline and surgiflo is used to stop any bleeding. The tubular retractor is removed and the wound is closed with vicryl and monocryl suture. Steri strips were applied. A sterile dressing is then placed. Patient was then placed in the supine position and transferred to the PACU in stable condition.
--- NOTE | 2025-09-01 10:02 | PC.NURSE ---
0942 - Patient incontinent of urine. Taken to OPS and assisted to [facility] x standby assist. Linens and gown changed and patient given warm wash cloths. Monitor on. Nurse updated.
--- NOTE | 2025-09-01 10:54 | ANE.PACU2 ---
Inpatient post-anesthesia follow up: Airway intact: Yes Vital signs: Temperature 98.4 F Pulse Rate 63 Respiratory Rate 18 Blood Pressure 127/73 Pulse Oximetry 100 Oxygen Delivery Me thod Room Air Oxygen Flow Rate Fraction of Inspir ed Oxygen Hydration adequate: Yes Nausea and vomiting: No Mental status: Baseline
== END 2025-09-01 10:54 | disposition home or self-care (01) ==
PROVIDERS: Student in an Organized Health Care Education/Training Program; Family Provider Nurse Practitioner Family; PCP Family Medicine; Visit Provider Orthopaedic Surgery
PROC: (CPT 63005; principal; 2025-09-01 08:25)
DX: M48.062 Spinal stenosis, lumbar region with neurogenic claudication (principal); F41.8 Other specified anxiety disorders; F43.12 Post-traumatic stress disorder, chronic; J45.909 Unspecified asthma, uncomplicated; M79.7 Fibromyalgia; E66.9 Obesity, unspecified; Z68.34 Body mass index [BMI] 34.0-34.9, adult
CPT/HCPCS: 63047; 72100; 76000; 81025; A4649; J0690; J1100; J2250; J2405; J2704; J3010; J3490; J7030; J9999

== ENCOUNTER → 2025-09-12 13:14 | Outpatient (BNVA) | payer MEDICAID, SELFPAY ==
[2025-01-23 15:14] VITALS: BP 131/94; BMI 29.6
== END ==
PROVIDERS: Family Provider Nurse Practitioner Family; PCP Family Medicine; Visit Provider Orthopaedic Surgery
DX: Z98.890 Other specified postprocedural states (principal)
CPT/HCPCS: 99024

== ENCOUNTER 2025-09-13 09:37 | Outpatient (CLI) | payer MEDICAID, SELFPAY ==
[2025-01-23 15:14] VITALS: BP 131/94; BMI 29.6
--- NOTE | 2025-09-13 10:15 | MR_ITS ---
WS: [id number] MRI LEFT SHOULDER HISTORY: left shoulder pain COMPARISON: Radiograph 05/30/2025 TECHNIQUE: Multiplanar sequences of the shoulder joint are submitted. Minimal AC joint arthritis. Small osteophytes encroach upon the myotendinous portion of the supraspinatus. Mild subacromial impingement by an enthesopathy. No fluid in the subacromial or subdeltoid bursa. No os acromion. Normal position of the biceps tendon in the bicipital groove. Normal glenohumeral joint. No fractures or marrow edema. There is a small amount of increased signal in the supraspinatus tendon associated with the AC joint osteophyte and also mild tendinopathy and encroachment just distal to the subacromial impingement. No rotator cuff tears. No muscle edema or atrophy. There is a small amount of fluid along the rotator c uff interval. There is a small amount of increased T2 signal and thickening of the biceps tendon in the rotator cuff interval. No thickening of the axillary pouch. MR/MR shoulder LT wo con* [id number] IMPRESSION: 1. Mild AC joint arthritis. 2. Small AC joint osteophytes with mild encroachment upon the myotendinous por tion of the supraspinatus and tendinopathy. 3. Mild subacromial impingement by an enthesopathy. Additional tendinopathy in the supraspinatus tendon distal to the enthesopathy. 4. No rotator cuff tendon tears. 5. Small amount of fluid in the rotator cuff interval with tendinopathy of the biceps tendon.
--- NOTE | 2025-09-13 11:00 | MR_ITS ---
WS: [id number] MRI RIGHT SHOULDER HISTORY: right shoulder pain/injury rule out cuff tear COMPARISON: Radiograph 05/30/2025 TECHNIQUE: Multiplanar sequences of the shoulder joint are submitted. Mild to moderate AC joint arthritis. Small osteophytes with mild encroachment upon the myotendinous portion of the supraspinatus. Mild synovial hypertrophy and a small amount of fluid in the AC joint. Mild subacromial impingement by an enthesopathy. No os acromiale. Normal position of the biceps tendon in the bicipital groove. Normal position of the humeral head at the glenoid. No rotator cuff tears. No significant tendinopathy identified. No muscle atrophy or edema. There is mild tendinopathy in the distal subscapularis tendon. Small amount of fluid in the rotator cuff interval. Biceps tendon in the rotator cuff interval is very slightly thickened and of intermediate signal. No tears. No labral tear. No adhesive capsulitis. MR/MR shoulder RT wo con* [id number] IMPRESSION: 1. Mild to moderate AC joint arthritis. Small osteophytes encroach upon the wiseman praspinatus tendon. 2. No biceps tendon tear. 3. Mild subacromial impingement by an enthesopathy. 4. Mild tendinopathy in the distal subscapularis tendon. 5. Small amount of increased T2 signal through the rotator cuff interval, mild tendinopathy. No tear. Including the biceps tendon.
== END 2025-09-13 09:38 | disposition home or self-care (01) ==
LOC: RAD 09:38
PROVIDERS: Family Provider Nurse Practitioner Family; PCP Family Medicine; Visit Provider Student in an Organized Health Care Education/Training Program
DX: M75.42 Impingement syndrome of left shoulder (principal); M25.512 Pain in left shoulder; M75.41 Impingement syndrome of right shoulder; M25.511 Pain in right shoulder; M12.4 Intermittent hydrarthrosis; M25.711 Osteophyte, right shoulder; S43.432A Superior glenoid labrum lesion of left shoulder, initial encounter; X58.XXXA Exposure to other specified factors, initial encounter; M12.89 Other specific arthropathies, not elsewhere classified, multiple sites; M75.22 Bicipital tendinitis, left shoulder
CPT/HCPCS: 73221